=== PATIENT | male | born 1950 | race African-American/Black ===

== ENCOUNTER 2016-11-14 23:18 | Inpatient (IN) | payer MEDICARE, BC ==
[~2016-11-14] VITALS: Ht 170.2 cm; Wt 88.2 kg
[2016-11-14 23:20] VITALS: BP 143/54
[2016-11-14] MEDS ORDERED: Albuterol ud Inhalation ONE (23:28)
[2016-11-14] MEDS ORDERED: FEROSUL325 M1 PO (23:28)
[2016-11-14] MEDS ORDERED: CARVEDILOL6.25 MG ORAL (23:28)
[2016-11-14] MEDS ORDERED: ASPIR 8181 MG ORAL (23:28)
[2016-11-14] MEDS ORDERED: TELMISARTAN80 MG PO (23:28)
[2016-11-14] MEDS ORDERED: Ipratropium 0.02% Inh Soln 2.5ml UD ONE (23:28)
[2016-11-14] MEDS ORDERED: AMLODIPINE BESY10 MG ORAL (23:28)
[2016-11-14] MEDS ORDERED: CRESTOR10 M2 ORAL (23:28)
[2016-11-14] MEDS ORDERED: PROAIR HFA8.5 GM INH (23:28)
[2016-11-14] MEDS ORDERED: NOVOLOG100 UNITS1 (23:28)
[2016-11-14] MEDS ORDERED: CATAPRES0.2 MG ORAL (23:28)
[2016-11-14] MEDS ORDERED: LEVOFLOXACIN250 MG ORAL (23:28)
[2016-11-14] MEDS ORDERED: MONTELUKAST SOD10 MG ORAL (23:28)
[2016-11-14] MEDS ORDERED: LEVOTHYROXINE50 MCG ORAL (23:28)
[2016-11-14] MEDS ORDERED: LANTUS SOL100 UNIT/1 SUBQ (23:28)
[2016-11-14] MEDS ORDERED: CREON DR 24,001 EACH PO (23:28)
[2016-11-14] MEDS ORDERED: Ipratropium 0.02% Inh Soln 2.5ml UD HHN ONE (23:30)
[2016-11-14] MEDS ORDERED: Solu-MEDROL 125mg Inj IVP ONE (23:30)
[2016-11-14] MEDS ORDERED: Albuterol ud Inhalation HHN ONE (23:30)
--- NOTE | 2016-11-14 23:33 | Emergency Room Report ---
History of Present Illness General Chief Complaint: Dyspnea/Respdistress Source: Patient, Family Member Present Illness HPI This is a 66-year-old male with a history of asthma. Also has a history of chronic pancreatitis requiring surgery in the . He presents with shortness of breath. Onset last few days but worse tonight. Wheezing. Had to call 911. No nausea no vomiting. Worse with exertion. Denies any fever or chills. Cough is nonproductive in nature. No chest pain. Allergies: Coded Allergies: No Known Allergies (Unverified , 11/14/16) Patient History Past Medical History: see triage record, old chart reviewed, asthma Past Surgical History: other Pertinent Family History: none Social History: Denies: smoking Immunizations: other Reviewed Nursing Documentation: PMH: Agreed, PSxH: Agreed Nursing Documentation-PMH Hx Hypertension: Yes - Thyroid Hx Asthma: Yes Hx Diabetes: Yes Review of Systems Eye: Denies: eye pain, blurred vision ENT: Denies: ear pain, nose congestion, throat swelling Respiratory: Reports: cough, shortness of breath, wheezing Cardiovascular: Denies: chest pain, palpitations Gastrointestinal: Denies: abdominal pain, diarrhea, nausea, vomiting Musculoskeletal: Denies: back pain, joint pain Skin: Denies: rash Neurological: Denies: headache, numbness Endocrine: Denies: increased thirst, increased urine Hematologic/Lymphatic: Denies: easy bruising All Other Systems: negative except mentioned in HPI Physical Exam Vital Signs Date Time Temp Pulse Resp B/P (MAP) Pulse Ox O2 Delivery O2 Flow Rate FiO2 11/14/16 23:18 97.9 84 26 143/54 99 Room Air vitals normal Sp02 EP Interpretation: reviewed, normal General Appearance: well appearing, alert, moderate distress Head: normocephalic, atraumatic Eyes: bilateral eye PERRL, bilateral eye EOMI ENT: hearing grossly normal, normal pharynx Neck: full range of motion, supple, no meningismus Respiratory: chest non-tender, respiratory distress, decreased breath sounds, accessory muscle use, wheezing Cardiovascular #1: regular rate, rhythm, no murmur Gastrointestinal: normal bowel sounds, non tender, no mass, no organomegaly, no bruit, non-distended Musculoskeletal: back normal, gait/station normal, normal range of motion Psychiatric: mood/affect normal Skin: warm/dry Procedures Critical Care Time Critical Care Time Critical care is mandated in this patient who presented with severe acidosis and renal failure. Patient require my urgent intervention to attenuate the risks of metabolic collapse which may lead to cardiovascular collapse and . Critical care time is 75 minutes excluding any reportable procedure. Critical care time included evaluation, multiple reevaluation, looking at old charts, interpreting laboratory and diagnostic data, discussing case with patient and family and consultants, and charting. Medical Decision Making Diagnostic Impression: Primary Impression: Metabolic acidosis Additional Impressions: Acute renal failure (ARF) Qualified Codes: N17.9 - Acute kidney failure, unspecified Hyperkalemia Status asthmaticus Qualified Codes: J45.32 - Mild persistent asthma with status asthmaticus Hyperglycemia due to type 1 diabetes mellitus Anemia Qualified Codes: D64.9 - Anemia, unspecified ER Course Patient presents with severe acidosis and acute renal failure. Glucose was very high. His acidosis is probably more secondary to renal failure than DKA. Bicarbonate given and bicarbonate drip initiated. Hyperkalemia treated. There is no EKG changes. Wheezing improved after breathing treatment. Patient [facility]. Because of this I will get patient to Dr. Oviedo. He accepted the patient. Laboratory Tests Test 11/14/16 23:50 11/15/16 01:12 11/15/16 01:22 White Blood Count 14.1 K/UL (4.8-10.8) H Red Blood Count 2.99 M/UL (4.70-6.10) L Hemoglobin 10.1 G/DL (14.2-18.0) L Hematocrit 31.1 % (42.0-52.0) L Mean Corpuscular Volume 104 FL (80-99) H Mean Corpuscular Hemoglobin 33.7 PG (27.0-31.0) H Mean Corpuscular Hemoglobin Concent 32.4 G/DL (32.0-36.0) Red Cell Distribution Width 15.7 % (11.6-14.8) H Platelet Count 223 K/UL (150-450) Mean Platelet Volume 6.4 FL (6.5-10.1) L Neutrophils (%) (Auto) 76.0 % (45.0-75.0) H Lymphocytes (%) (Auto) 10.7 % (20.0-45.0) L Monocytes (%) (Auto) 10.9 % (1.0-10.0) H Eosinophils (%) (Auto) 0.7 % (0.0-3.0) Basophils (%) (Auto) 1.7 % (0.0-2.0) Prothrombin Time 10.7 SEC (9.30-11.50) Prothromb Time International Ratio 1.0 (0.9-1.1) Activated Partial Thromboplast Time 33 SEC (23-33) Sodium Level 141 mEQ/L (135-145) 140 mEQ/L (135-145) Potassium Level 6.6 mEQ/L (3.4-4.9) *H 6.9 mEQ/L (3.4-4.9) *H Chloride Level 109 mEQ/L (98-107) H 114 mEQ/L (98-107) H Carbon Dioxide Level < 6 mEQ/L (20-30) *L < 6 mEQ/L (20-30) *L Anion Gap 26 (5-15) H 20 (5-15) H Blood Urea Nitrogen 102 mg/dL (7-23) H 99 mg/dL (7-23) H Creatinine 11.2 mg/dL (0.7-1.2) H 10.7 mg/dL (0.7-1.2) H Estimat Glomerular Filtration Rate 5.6 mL/min (>60) 5.9 mL/min (>60) Glucose Level 217 mg/dL (74-106) H 229 mg/dL (74-106) H Lactic Acid Level 0.90 mmol/L (0.66-2.22) Calcium Level 6.1 mg/dL (8.6-10.2) L 6.2 mg/dL (8.6-10.2) L Total Bilirubin < 0.2 mg/dL (0.0-1.2) Aspartate Amino Transf (AST/SGOT) 22 U/L (5-40) Alanine Aminotransferase (ALT/SGPT) 15 U/L (3-41) Alkaline Phosphatase 183 U/L (40-129) H Total Creatine Kinase 761 U/L (38-174) H Creatine Kinase MB 15.6 ng/mL (< 6.7) H Creatine Kinase MB Relative Index 2.0 Troponin I < 0.30 ng/mL (<=0.30) Total Protein 7.1 g/dL (6.6-8.7) Albumin 4.0 g/dL (3.5-5.2) Globulin 3.1 g/dL Albumin/Globulin Ratio 1.2 (1.0-2.7) Arterial Blood pH 6.860 (7.350-7.450) Arterial Blood Partial Pressure CO2 16.4 mmHg (35.0-45.0) *L Arterial Blood Partial Pressure O2 97.4 mmHg (75.0-100.0) Arterial Blood HCO3 2.9 mmol/L (22.0-26.0) L Arterial Blood Oxygen Saturation 92.9 % (92.0-98.0) Arterial Blood Base Excess -27.9 Doe Test N/a Lab Results Impression labs with severe acidosis and renal failure EKG Diagnostic Results Rate: normal Rhythm: NSR ST Segments: no acute changes Rhythm Strip Diag. Results Rhythm Strip Time: 23:33 EP Interpretation: yes Rate: 86 Rhythm: NSR, no PVC's, no ectopy Chest X-Ray Diagnostic Results Chest X-Ray Diagnostic Results : Chest X-Ray Ordered: Yes # of Views/Limited/Complete: 1 View Indication: Shortness of Breath EP Interpretation: Yes Interpretation: no consolidation, no effusion, no pneumothorax, no acute cardiopulmonary disease Impression: No acute disease Electronically Signed by: Electronically signed by Lee Smyth MD Last Vital Signs Date Time Temp Pulse Resp B/P (MAP) Pulse Ox O2 Delivery O2 Flow Rate FiO2 11/14/16 23:21 86 26 Room Air 11/14/16 23:20 97.9 143/54 99 Status: improved Disposition: ADMITTED INPATIENT Condition: Critical LEE SMYTH M.D. Nov 14, 2016 23:33
[2016-11-15] VITALS (20 sets, daily range): BP systolic 109–203; BP diastolic 52–83
[2016-11-15 00:14] LABS: BASOPHILS % (AUTO) 1.7 % (0.0-2.0); EOSINOPHILS % (AUTO) 0.7 % (0.0-3.0); LYMPHOCYTES % (AUTO) 10.7 % (20.0-45.0); MEAN CORPUSCULAR HEMOGLOBIN 33.7 PG (27.0-31.0); MEAN CORPUSCULAR HGB CONC 32.4 G/DL (32.0-36.0); MEAN CORPUSCULAR VOLUME 104 FL (80-99); MEAN PLATELET VOLUME 6.4 FL (6.5-10.1); MONOCYTES % (AUTO) 10.9 % (1.0-10.0); PLATELET COUNT 223 K/UL (150-450); RED BLOOD COUNT 2.99 M/UL (4.70-6.10); RED CELL DISTRIBUTION WIDTH 15.7 % (11.6-14.8); WHITE BLOOD COUNT 14.1 K/UL (4.8-10.8)
[2016-11-15 00:21] LABS: PROTHROMBIN TIME 10.7 SEC (9.30-11.50)
[2016-11-15 00:28] LABS: TROPONIN I < 0.30 ng/mL (<=0.30)
[2016-11-15 00:31] LABS: ALANINE AMINOTRANSFERASE 15 U/L (3-41); ASPARTATE AMINO TRANSFERASE 22 U/L (5-40); CALCIUM 6.1 mg/dL (8.6-10.2); CHLORIDE 109 mEQ/L (98-107); CREATININE 11.2 mg/dL (0.7-1.2); GLOMERULAR FILTRATION RATE 5.6 mL/min (>60); SODIUM 141 mEQ/L (135-145)
[2016-11-15] MEDS ORDERED: Albuterol ud Inhalation HHN ONE (00:45)
[2016-11-15 00:54] LABS: ALBUMIN/GLOBULIN RATIO 1.2 (1.0-2.7); ANION GAP 26 (5-15); HEMOLYSIS 57; TOTAL PROTEIN 7.1 g/dL (6.6-8.7)
[2016-11-15 01:00] LABS: CARBON DIOXIDE < 6 mEQ/L (20-30); POTASSIUM 6.6 mEQ/L (3.4-4.9)
[2016-11-15 01:09] LABS: CKMB 15.6 ng/mL (< 6.7)
[2016-11-15 01:33] LABS: ABG PCO2 16.4 mmHg (35.0-45.0)
[2016-11-15 01:34] LABS: ABG BASE EXCESS -27.9
[2016-11-15] MEDS ORDERED: Sodium Bicarbonate 50ml Carp IV ONE ×3 (01:45→09:30)
[2016-11-15] MEDS ORDERED: Sodium Bicarbonate 150 ML in D5W 1000ml 1,000 ML IV SCH ×2 (01:45→02:45)
[2016-11-15 01:46] LABS: ANION GAP 20 (5-15); CALCIUM 6.2 mg/dL (8.6-10.2); CHLORIDE 114 mEQ/L (98-107); CREATININE 10.7 mg/dL (0.7-1.2); GLOMERULAR FILTRATION RATE 5.9 mL/min (>60); HEMOLYSIS 20; SODIUM 140 mEQ/L (135-145)
[2016-11-15 01:53] LABS: CARBON DIOXIDE < 6 mEQ/L (20-30); POTASSIUM 6.9 mEQ/L (3.4-4.9)
[2016-11-15] MEDS ORDERED: Sodium Bicarbonate 8.4% 50ml Inj ONE (01:55)
[2016-11-15] MEDS ORDERED: Calcium Gluconate 1gm/10ml vial IVP ONE (02:00)
[2016-11-15] MEDS ORDERED: Sodium Polystyrene Sulfonate 15gm Powder ORAL ONE (02:00)
[2016-11-15 04:43] LABS: KETONES,URINE 1+ (NEGATIVE); LEUKOCYTE ESTERASE ,URINE 3+ (NEGATIVE); NITRITE,URINE NEGATIVE (NEGATIVE); PH,URINE 5 (4.5-8.0); PROTEIN,URINE 4+ (NEGATIVE); UROBILINOGEN,URINE NORMAL MG/DL (0.0-1.0)
[2016-11-15 04:51] LABS: APPEARANCE,URINE CLOUDY
[2016-11-15 04:52] LABS: BACTERIA,URINE MANY /HPF; RBC,URINE TNTC /HPF (0 - 0); SQUAMOUS EPITHELIAL CELL,UR FEW /LPF (NONE/OCC); WBC,URINE TNTC /HPF (0 - 0)
[2016-11-15] MEDS ORDERED: cefTRIAXone 1 GM in D5W 55 ML IVPB ONE (05:45)
[2016-11-15 07:55] LABS: HEMOGLOBIN A1C 7.1 % (< 6.0)
[2016-11-15 08:11] LABS: ALANINE AMINOTRANSFERASE 13 U/L (3-41); ANION GAP 26 (5-15); ASPARTATE AMINO TRANSFERASE 18 U/L (5-40); CALCIUM 6.3 mg/dL (8.6-10.2); CHLORIDE 107 mEQ/L (98-107); CREATININE 11.1 mg/dL (0.7-1.2); GLOMERULAR FILTRATION RATE 5.7 mL/min (>60); HEMOLYSIS 1; POTASSIUM 5.7 mEQ/L (3.4-4.9); SODIUM 139 mEQ/L (135-145); TOTAL PROTEIN 6.9 g/dL (6.6-8.7)
[2016-11-15 08:26] LABS: ABG BASE EXCESS -26.6; ABG PCO2 19.7 mmHg (35.0-45.0)
[2016-11-15 08:27] LABS: ABG ALLEN TEST POSITIVE
[2016-11-15 09:15] LABS: CARBON DIOXIDE < 6 mEQ/L (20-30)
[2016-11-15] MEDS ORDERED: Lidocaine 4% Amp INJ ONE (09:30)
[2016-11-15] MEDS ORDERED: metOLazone 2.5 MG TAB ORAL SCH (09:30)
[2016-11-15] MEDS ORDERED: NovoLOG Insulin Flexpen SUBQ SCH ×2 (09:30→11:50)
[2016-11-15] MEDS ORDERED: Heparin 2000 units/Ns 1000ml INJ ONE (11:00)
[2016-11-15] MEDS ORDERED: Lidocaine 1% Plain 30 ml INJ ONE (11:00)
[2016-11-15 11:57] LABS: CREATININE, RANDOM URINE 100.5 mg/dL
--- NOTE | 2016-11-15 12:16 | Diagnostic Imaging Report ---
Indication: SOB Technique: One view of the chest Comparison: none Findings: Vague 6 cm opacity is seen in the right upper lobe. Atelectatic changes are seen in the left lung base. The heart is enlarged. Pleural spaces are clear. Impression: Vague 6 cm opacity in the right upper lobe. Could represent infiltrate or mass Cardiomegaly Left basilar atelectasis
[2016-11-15] MEDS: Nitroglycerin 2% oint pkt TOPIC SCH ×3 (12:46→23:36)
[2016-11-15] MEDS: NovoLOG Insulin Flexpen SUBQ SCH ×6 (12:47→23:36)
[2016-11-15] MEDS ORDERED: Solu-MEDROL 125mg Inj IVP SCH (15:30)
[2016-11-15] MEDS ORDERED: Azithromycin 250mg tab ORAL ONE (15:30)
--- NOTE | 2016-11-15 15:42 | Diagnostic Imaging Report ---
Indication: Needs dialysis access, renal failure Technique: Procedure performed at bedside. Procedural timeout performed. Total sterile technique, including sterile probe cover and sterile gel, sterile gloves, hand hygiene, hat, mask, sterile gown, large sterile drape, and preparation with 2% chlorhexidine utilized. Local anesthesia with 1% lidocaine. Under real-time ultrasound guidance, puncture right greater saphenous vein using 21-gauge needle, passage 108 guidewire, insertion 4 Arabic micropuncture introducer, passage 0.035 guidewire, over which was passed serial dilators and then a 13 Arabic triple-lumen temporary dialysis catheter. Guidewire was removed. Catheter ports were aspirated and flushed. The catheter was fixed to the skin. Patient tolerated procedure well. An abdominal radiograph was obtained, documents catheter tip position at the iliac venous confluence. Comparison: None Findings: As above Impression: Successful bedside placement of right femoral temporary dialysis catheter, as described.
--- NOTE | 2016-11-15 19:16 | History & Physical ---
History and Physical History & Physicial dict ESRD hyperkalemia, acidosis resp failure asthma DM ADELAIDA COOL Nov 15, 2016 19:16
[2016-11-15] MEDS: Solu-MEDROL 40mg Inj IVP SCH (20:01)
[2016-11-15] MEDS: Losartan 50mg tab ORAL SCH (20:01)
[2016-11-15] MEDS ORDERED: Levemir Flexpen SUBQ SCH (21:00)
[2016-11-15] MEDS: Levemir Flexpen SUBQ SCH (21:03)
--- NOTE | 2016-11-15 22:30 | Consultation ---
DATE OF CONSULTATION: 11/15/2016 NEPHROLOGY CONSULTATION CONSULTING PHYSICIAN: Smith Tidwell M.D. REFERRING PHYSICIAN: Manish Oviedo M.D. REASON FOR CONSULTATION: Azotemia, hyperkalemia, and dyspnea. History Of Present Illness: The patient is a 66-year-old man with long-term diabetes, who presents with hyperkalemia, azotemia, and respiratory distress. He apparently has had diminished renal function but could not give us any details. He has long-standing diabetes for likely more than 20 years and history of hypertension. There is prior history of pancreatitis requiring surgery in the . He also has asthma. PAST SURGICAL HISTORY: Surgery for pancreatitis. ALLERGIES: None known. Medications: Levothyroxine 50 mcg daily, aspirin 81 mg daily, montelukast 10 mg daily, Creon 3 times a day, ferrous sulfate 325 b.i.d., Crestor changed to atorvastatin uncertain dose, carvedilol 6.25 b.i.d., telmisartan 80 mg daily, clonidine 0.2 mg b.i.d., amlodipine 10 mg daily, Lantus 25 units at night, NovoLog 10 to 15 units t.i.d. with meals, ProAir and QVAR p.r.n. HABITS: He has never been a smoker. Denies alcohol or drugs. SOCIAL HISTORY: His apparently helps with his medications. SYSTEM REVIEW: Head, Eyes, Ears, Nose, Throat: He states his vision and hearing is good. Endocrine: History of obesity and diabetes as above and hypothyroidism. PULMONARY: History of asthma as above. Gastrointestinal: No GI bleeding or ulcers. No recent vomiting or GI bleeding. GENITOURINARY: History of difficulty voiding. CARDIAC: Denies history of angina or [place]. NEUROLOGIC: No history of CVA or seizures. PHYSICAL EXAMINATION: General: The patient is seen in the ICU. He is on BiPAP. He is alert and responsive but dyspneic. Vital Signs: Blood pressure 155/51, pulse 84, respirations 20, and O2 saturation 100%. Head, Eyes, Ears, Nose, A Throat: Sclerae are nonicteric. Ocular motions are intact in all directions. Oral mucosa is slightly dry. NECK: No adenopathy. LUNGS: He is in mild distress. Bilateral wheezing. HEART: Regular rhythm. I hear no murmur. ABDOMEN: Soft. No organomegaly. EXTREMITIES: A 1+ edema. GENITOURINARY: A Palacios is in place. Penis and testes are normal. RECTAL: Deferred. Neurologic: He is alert and responsive. Cranial nerves are intact. No focal findings. Pertinent Laboratory And Diagnostic Data: On admission, sodium 141, potassium 6.6, chloride 109, CO2 of 6, BUN 102, creatinine 11.2, and glucose 217. CK 761. Troponin less than 0.30. Albumin is 4. There was pH of 6.86, pCO2 16, and pO2 97.4. White count 14.1 and hemoglobin 10.1. Urine sodium 74, urine creatinine of 100.5, and 4+ proteinuria. Chest x-ray shows cardiomegaly. There is no definite pulmonary edema. IMPRESSION: 1. End-stage renal disease. 2. Hyperkalemia. 3. Severe respiratory and severe metabolic acidosis likely due to some component of ketoacidosis as well as lactic acidosis and renal acidosis all combined. 4. Respiratory distress with asthma. 5. Diabetes with hyperglycemia. Plan: The patient requires dialysis for fluid overload and metabolic acidosis. He requires management of his diabetes and multiple medical problems. His condition is critical. In great detail, ICU orders were given. Case was discussed with Dr. Manish Oviedo. Smith Tidwell M.D. DR: LISA JOB#: [id number] CC:
[2016-11-16] VITALS (24 sets, daily range): BP systolic 115–177; BP diastolic 56–93
[2016-11-16] MEDS: NovoLOG Insulin Flexpen SUBQ SCH ×10 (03:05→20:52)
[2016-11-16 05:41] LABS: MEAN CORPUSCULAR HGB CONC 32.9 G/DL (32.0-36.0); MEAN CORPUSCULAR VOLUME 97 FL (80-99); MEAN PLATELET VOLUME 6.1 FL (6.5-10.1); PLATELET COUNT 221 K/UL (150-450); RED BLOOD COUNT 2.98 M/UL (4.70-6.10); RED CELL DISTRIBUTION WIDTH 14.5 % (11.6-14.8); WHITE BLOOD COUNT 14.6 K/UL (4.8-10.8)
[2016-11-16] MEDS: Nitroglycerin 2% oint pkt TOPIC SCH ×3 (05:48→17:23)
[2016-11-16] MEDS ORDERED: Heparin Sod 1000 units/ml 10ml IV SCH (06:00)
[2016-11-16 06:08] LABS: ALBUMIN/GLOBULIN RATIO 0.9 (1.0-2.7); CALCIUM 7.2 mg/dL (8.6-10.2); CREATININE 9.2 mg/dL (0.7-1.2); TOTAL PROTEIN 7.2 g/dL (6.6-8.7)
[2016-11-16 08:24] LABS: ABG ALLEN TEST POSITIVE; ABG BASE EXCESS -9.2
[2016-11-16] MEDS: Azithromycin 250mg tab ORAL SCH (08:36)
[2016-11-16] MEDS: Solu-MEDROL 40mg Inj IVP SCH ×2 (08:36→20:50)
--- NOTE | 2016-11-16 09:02 | History and Physical Report ---
DATE OF ADMISSION: 11/15/2016 CHIEF COMPLAINT: Short of breath. History of Present Illness: This is a 66-year-old man with asthma and diabetes, came in the emergency room with several days of increasing shortness of breath and wheezing. He was evaluated and found to have exacerbation of asthma and renal failure. He was placed on BiPAP and admitted to intensive care. I came to see him several hours later. There is no chest pain. There is nonproductive cough. There is no fever. Past Medical History: He has longstanding diabetes according to the . He has been told that his kidney function is only 18% of normal several months ago. He has history of asthma. He is not a cigarette smoker. He has hypertension and thyroid disease. MEDICATIONS: Reviewed. ALLERGIES: None. Review of Systems: Difficult to obtain because he is in respiratory distress and on BiPAP and according to the , he is quite functional. PHYSICAL EXAMINATION: GENERAL: The patient is alert, but weak and short of breath. Vital Signs: Vital signs show adequate saturation and otherwise stable with blood pressure somewhat elevated. There is no fever. SKIN: Warm and dry. HEENT: Head appears puffy. CHEST: Decreased air entry with few wheezes. CARDIAC: Rhythm is regular. ABDOMEN: Soft and nontender. EXTREMITIES: No clubbing or cyanosis. There is 2+ edema. Laboratory And Diagnostic Data: Laboratory studies show urine has protein, blood, glucose, and ketones as well as red cells and white cells. The white blood count is 14,100 and hemoglobin is 10. Chemistry shows a BUN of 99, creatinine 10.7, potassium 6.1, bicarbonate less than 6, sodium was normal, and blood sugar 229. Hemoglobin A1c 7.1. Blood gas showed pH is 6.86, pCO2 of 16, pO2 at 97, bicarbonate of 3, and base excess -27. Chest x-ray shows hazy opacity in the right upper lobe, cardiomegaly, and basilar atelectasis. IMPRESSION: 1. Respiratory failure. 2. Severe metabolic acidosis. 3. Renal failure, stage 5. 4. Severe hyperkalemia. 5. Diabetes. 6. Hypertension. 7. Possible pneumonia. 8. Possible urinary tract infection. Plan: The patient is will continue in ICU. I have given some bicarbonate and called Dr. Tidwell for dialysis for the patient. The potassium is treated in the emergency department and will be repeated. The antibiotics will be continued. I discussed his care with his . Manish Oviedo M.D. DR: ASTRID JOB#: [id number] CC: Manish Oviedo M.D.; Fax#: [phone] Lang, M.D. ; Fax#: [phone] [facility]
--- NOTE | 2016-11-16 11:10 | Diagnostic Imaging Report ---
Indication: SOB Technique: One view of the chest Comparison: none Findings: The heart is borderline enlarged. There is slightly increased interstitial edema. No focal airspace consolidation. The pleural spaces remain clear Impression: Slightly increased interstitial edema, over 2 days Cardiomegaly
--- NOTE | 2016-11-16 14:01 | Nephrology Progress Note ---
Assessment/Plan Problem List: (1) Hypertension, benign (2) Anemia in chronic kidney disease (3) CHF exacerbation (4) Diabetes (5) End-stage renal disease (6) Hyperkalemia (7) Metabolic acidosis (8) Status asthmaticus Plan improving, less dyspnea, diuresing with lasix, dose adjusted, K replaced , serial dialysis for acidosis and azotemia, discussed need for access with patient and Subjective Constitutional: Reports: weakness Genitourinary: Reports: no symptoms Neurologic/Psychiatric: Reports: no symptoms Objective Objective Last 24 Hour Vital Signs Date Time Temp Pulse Resp B/P (MAP) Pulse Ox O2 Delivery O2 Flow Rate FiO2 11/16/16 13:17 Bi-pap 11/16/16 13:00 85 23 148/56 99 Nasal Cannula 2.0 11/16/16 12:39 76 20 99 11/16/16 12:00 99.1 92 22 168/75 99 Bi-pap 30 11/16/16 12:00 30 11/16/16 12:00 89 11/16/16 11:58 150/62 11/16/16 11:00 85 23 150/62 100 Bi-pap 30 11/16/16 10:45 89 17 100 Facial 30 11/16/16 10:00 91 23 149/60 100 Bi-pap 30 11/16/16 09:04 94 22 96 11/16/16 09:00 92 24 170/81 100 Nasal Cannula 2.0 11/16/16 08:35 95 155/75 11/16/16 08:00 91 11/16/16 08:00 99.0 99 25 155/75 100 Nasal Cannula 2.0 11/16/16 08:00 30 11/16/16 07:02 95 23 100 Facial 30 11/16/16 07:00 95 16 161/78 100 Bi-pap 30 11/16/16 06:00 100 16 177/82 100 Bi-pap 30 11/16/16 05:48 173/68 11/16/16 05:10 98 18 100 Facial 30 11/16/16 05:00 93 21 173/68 99 Bi-pap 30 11/16/16 04:00 98 11/16/16 04:00 30 11/16/16 04:00 99.2 97 25 165/74 100 Bi-pap 30 11/16/16 03:15 91 23 100 Facial 30 11/16/16 03:00 92 19 169/73 100 Bi-pap 30 11/16/16 02:00 98 21 173/73 100 Bi-pap 30 11/16/16 01:16 96 21 100 Facial 30 11/16/16 01:00 96 22 173/73 100 Bi-pap 30 11/16/16 00:00 30 11/16/16 00:00 109 11/16/16 00:00 99.0 92 22 173/68 99 Bi-pap 30 11/15/16 23:36 178/73 11/15/16 23:21 104 25 100 Facial 30 11/15/16 23:00 104 22 178/73 100 Bi-pap 30 11/15/16 22:13 207/64 11/15/16 22:00 104 22 203/71 100 Bi-pap 30 11/15/16 21:37 102 21 100 Facial 30 11/15/16 21:00 100 22 175/68 100 Bi-pap 30 11/15/16 20:02 102 190/78 11/15/16 20:01 190/78 11/15/16 20:00 98.8 101 22 193/79 100 Bi-pap 30 11/15/16 20:00 102 11/15/16 20:00 30 11/15/16 19:04 101 21 100 Facial 30 11/15/16 19:00 101 22 199/67 100 Bi-pap 30 11/15/16 18:15 169/75 11/15/16 18:00 98 22 183/73 100 Bi-pap 30 11/15/16 17:10 99 20 100 Facial 30 11/15/16 17:00 95 23 131/69 100 Bi-pap 30 11/15/16 16:00 98.0 93 19 137/83 100 Bi-pap 30 11/15/16 16:00 88 11/15/16 16:00 30 11/15/16 15:48 88 20 100 Facial 30 11/15/16 15:00 88 17 131/69 100 Bi-pap 30 11/15/16 14:00 89 17 120/78 100 Bi-pap 30 Intake and Output 11/16/16 11/17/16 19:00 07:00 Output Total 1750 ml Balance -1750 ml Output Urine Total 1750 ml Laboratory Tests 11/16/16 04:05: White Blood Count 14.6H, Red Blood Count 2.98L, Hemoglobin 9.5L, Hematocrit 29.0L, Mean Corpuscular Volume 97, Mean Corpuscular Hemoglobin 32.0H, Mean Corpuscular Hemoglobin Concent 32.9, Red Cell Distribution Width 14.5, Platelet Count 221, Mean Platelet Volume 6.1L, Neutrophils (%) (Auto) , Lymphocytes (%) ( Auto) , Monocytes (%) (Auto) , Eosinophils (%) (Auto) , Basophils (%) (Auto) , Sodium Level 144, Potassium Level 3.0L, Chloride Level 102, Carbon Dioxide Level 14L, Anion Gap 28H, Blood Urea Nitrogen 83H, Creatinine 9.2H, Estimat Glomerular Filtration Rate 7.0, Glucose Level 201#H, Calcium Level 7.2L, Total Bilirubin 0.2, Aspartate Amino Transf (AST/SGOT) 23, Alanine Aminotransferase ( ALT/SGPT) 14, Alkaline Phosphatase 163H, Total Protein 7.2, Albumin 3.5, Globulin 3.7, Albumin/Globulin Ratio 0.9L 11/16/16 08:17: Arterial Blood pH 7.325L, Arterial Blood Partial Pressure CO2 31.0L, Arterial Blood Partial Pressure O2 146.7H, Arterial Blood HCO3 15.8L, Arterial Blood Oxygen Saturation 97.0, Arterial Blood Base Excess -9.2, Doe Test Positive Height (Feet): 5 Height (Inches): 7.00 Weight (Pounds): 198 General Appearance: alert, obese EENT: normal ENT inspection Neck: normal alignment Cardiovascular: normal rate, regular rhythm Respiratory/Chest: rhonchi - bilaterally Abdomen: non tender, soft Extremities: trace edema Neurologic: pressurization mechanic II-XII grossly normal ELO WATSON Nov 16, 2016 14:01
--- NOTE | 2016-11-16 15:10 | Critical Care Progress Note ---
Assessment/Plan Assessment/Plan 1. Respiratory failure. 2. Severe metabolic acidosis. 3. Renal failure, stage 5. 4. Severe hyperkalemia. 5. Diabetes. 6. Hypertension. 7. Possible pneumonia. 8. Possible urinary tract infection. improved with HD/UF pH 7.32, better K low disc w insurance MD and will transfer to [facility] hospital tomorrow if stable Critical Care - Subjective ROS Limited/Unobtainable: No EKG Rhythm: Sinus Tachycardia I&O: Intake and Output 11/16/16 11/17/16 19:00 07:00 Output Total 2065 ml Balance -2065 ml Output Urine Total 2065 ml Critical Care - Objective Last 24 Hour Vital Signs Date Time Temp Pulse Resp B/P (MAP) Pulse Ox O2 Delivery O2 Flow Rate FiO2 11/16/16 14:00 104 23 115/59 99 Nasal Cannula 2.0 11/16/16 13:17 Bi-pap 11/16/16 13:00 85 23 148/56 99 Nasal Cannula 2.0 11/16/16 12:39 76 20 99 11/16/16 12:00 99.1 92 22 168/75 99 Bi-pap 30 11/16/16 12:00 30 11/16/16 12:00 89 11/16/16 11:58 150/62 11/16/16 11:00 85 23 150/62 100 Bi-pap 30 11/16/16 10:45 89 17 100 Facial 30 11/16/16 10:00 91 23 149/60 100 Bi-pap 30 11/16/16 09:04 94 22 96 11/16/16 09:00 92 24 170/81 100 Nasal Cannula 2.0 11/16/16 08:35 95 155/75 11/16/16 08:00 91 11/16/16 08:00 99.0 99 25 155/75 100 Nasal Cannula 2.0 11/16/16 08:00 30 11/16/16 07:02 95 23 100 Facial 30 11/16/16 07:00 95 16 161/78 100 Bi-pap 30 11/16/16 06:00 100 16 177/82 100 Bi-pap 30 11/16/16 05:48 173/68 11/16/16 05:10 98 18 100 Facial 30 11/16/16 05:00 93 21 173/68 99 Bi-pap 30 11/16/16 04:00 98 9/28/17 04:00 30 11/16/16 04:00 99.2 97 25 165/74 100 Bi-pap 30 11/16/16 03:15 91 23 100 Facial 30 11/16/16 03:00 92 19 169/73 100 Bi-pap 30 11/16/16 02:00 98 21 173/73 100 Bi-pap 30 11/16/16 01:16 96 21 100 Facial 30 11/16/16 01:00 96 22 173/73 100 Bi-pap 30 11/16/16 00:00 30 11/16/16 00:00 109 11/16/16 00:00 99.0 92 22 173/68 99 Bi-pap 30 11/15/16 23:36 178/73 11/15/16 23:21 104 25 100 Facial 30 11/15/16 23:00 104 22 178/73 100 Bi-pap 30 11/15/16 22:13 207/64 11/15/16 22:00 104 22 203/71 100 Bi-pap 30 11/15/16 21:37 102 21 100 Facial 30 11/15/16 21:00 100 22 175/68 100 Bi-pap 30 11/15/16 20:02 102 190/78 11/15/16 20:01 190/78 11/15/16 20:00 98.8 101 22 193/79 100 Bi-pap 30 11/15/16 20:00 102 11/15/16 20:00 30 11/15/16 19:04 101 21 100 Facial 30 11/15/16 19:00 101 22 199/67 100 Bi-pap 30 11/15/16 18:15 169/75 11/15/16 18:00 98 22 183/73 100 Bi-pap 30 11/15/16 17:10 99 20 100 Facial 30 11/15/16 17:00 95 23 131/69 100 Bi-pap 30 11/15/16 16:00 98.0 93 19 137/83 100 Bi-pap 30 11/15/16 16:00 88 11/15/16 16:00 30 11/15/16 15:48 88 20 100 Facial 30 Status: alert Condition: improving Neck: no JVD Lungs: clear Heart: regular rhythm, tachycardia Abdomen: soft, non-tender Extremities: edema Micro: Microbiology Date/Time Source Procedure Growth Status 11/14/16 23:50 Blood Blood Culture - Preliminary NO GROWTH AFTER 24 HOURS Resulted 11/14/16 23:40 Blood Blood Culture - Preliminary NO GROWTH AFTER 24 HOURS Resulted 11/15/16 07:00 Nasal Nares MRSA Culture - Final Staphylococcus Aureus - Mrsa Complete 11/15/16 03:45 Urine,Clean Catch Urine Culture - Preliminary Gram Positive Cocci Resulted Accucheck: 346 ADELAIDA COOL Nov 16, 2016 15:10
[2016-11-16] MEDS: Renvela 2400 mg pkt NG SCH (18:03)
[2016-11-16] MEDS: Losartan 50mg tab ORAL SCH (20:50)
[2016-11-16] MEDS: Levemir Flexpen SUBQ SCH (20:53)
[2016-11-16] MEDS ORDERED: Dyna-Hex 2% Top Sol 2oz TOPIC SCH (21:00)
[2016-11-17] VITALS (25 sets, daily range): BP systolic 102–185; BP diastolic 57–97
[2016-11-17] MEDS: Nitroglycerin 2% oint pkt TOPIC SCH ×4 (00:29→18:00)
[2016-11-17] MEDS: NovoLOG Insulin Flexpen SUBQ SCH ×10 (00:29→21:44)
[2016-11-17 04:50] LABS: MEAN CORPUSCULAR HEMOGLOBIN 31.4 PG (27.0-31.0); MEAN CORPUSCULAR HGB CONC 32.7 G/DL (32.0-36.0); MEAN CORPUSCULAR VOLUME 96 FL (80-99); MEAN PLATELET VOLUME 5.8 FL (6.5-10.1); PLATELET COUNT 229 K/UL (150-450); RED CELL DISTRIBUTION WIDTH 14.3 % (11.6-14.8); WHITE BLOOD COUNT 15.6 K/UL (4.8-10.8)
[2016-11-17] MEDS ORDERED: Heparin Sod 1000 units/ml 10ml IV SCH (06:00)
[2016-11-17] MEDS ORDERED: Heparin 5000 units/ml inj INJ SCH ×2 (06:00→18:00)
[2016-11-17 07:17] LABS: CALCIUM 7.4 mg/dL (8.6-10.2); CREATININE 7.3 mg/dL (0.7-1.2); GLOMERULAR FILTRATION RATE 9.2 mL/min (>60); POTASSIUM 3.3 mEQ/L (3.4-4.9)
[2016-11-17 07:50] LABS: ANISOCYTOSIS 1+; BAND NEUTROPHILS % (MANUAL) 0 % (0-8); BASOPHILS % (MANUAL) 0 % (0-2); EOSINOPHILS % (MANUAL) 0 % (0-3); LYMPHOCYTES % (MANUAL) 4 % (20-45); NEUTROPHILS % (MANUAL) 92 % (45-75); NUCLEATED RED BLOOD CELLS 2 /100 WBC; PLATELET ESTIMATE ADEQUATE; PLATELET MORPHOLOGY NORMAL; SCHISTOCYTES 1+; TOTAL CELLS COUNTED 100
--- NOTE | 2016-11-17 07:50 | Nephrology Progress Note ---
Assessment/Plan Problem List: (1) Hypertension, benign (2) Anemia in chronic kidney disease (3) CHF exacerbation (4) Diabetes (5) End-stage renal disease (6) Hyperkalemia (7) Metabolic acidosis (8) Status asthmaticus Plan improving, less dyspnea, diuresing with lasix, dose adjusted, K replaced , serial dialysis for acidosis and azotemia, discussed need for access with patient and , Permcath order, dc anibal chapman for uti Subjective Constitutional: Reports: weakness HEENT: Reports: no symptoms Genitourinary: Reports: no symptoms Neurologic/Psychiatric: Reports: no symptoms Subjective emesis 2x, mild cough Objective Objective Last 24 Hour Vital Signs Date Time Temp Pulse Resp B/P (MAP) Pulse Ox O2 Delivery O2 Flow Rate FiO2 11/17/16 07:12 99 Nasal Cannula 2.0 28 11/17/16 07:12 Nasal Cannula 2.0 28 11/17/16 07:00 94 19 169/84 100 Nasal Cannula 2.0 11/17/16 06:00 84 19 159/80 100 Nasal Cannula 2.0 11/17/16 05:45 158/73 11/17/16 05:00 88 19 158/73 99 Nasal Cannula 2.0 11/17/16 04:00 98.6 86 15 164/82 100 Nasal Cannula 2.0 11/17/16 04:00 90 11/17/16 03:00 81 19 149/70 100 Nasal Cannula 2.0 11/17/16 02:00 82 17 152/87 100 Nasal Cannula 2.0 11/17/16 01:00 81 17 148/77 100 Nasal Cannula 2.0 11/17/16 00:29 147/76 11/17/16 00:00 98.4 93 15 147/76 100 Nasal Cannula 2.0 11/17/16 00:00 93 11/16/16 23:00 84 16 130/71 100 Nasal Cannula 2.0 11/16/16 22:00 85 26 138/71 100 Nasal Cannula 2.0 11/16/16 21:00 99 19 138/91 100 Nasal Cannula 2.0 11/16/16 20:50 156/77 11/16/16 20:00 98.9 99 22 156/77 100 Nasal Cannula 2.0 11/16/16 20:00 99 Nasal Cannula 2.0 28 11/16/16 20:00 97 11/16/16 20:00 Nasal Cannula 2.0 28 11/16/16 19:00 101 19 142/76 99 Nasal Cannula 2.0 11/16/16 18:00 102 19 163/93 99 Nasal Cannula 2.0 11/16/16 17:23 157/92 11/16/16 17:00 103 20 157/92 99 Nasal Cannula 2.0 11/16/16 16:00 Nasal Cannula 2.0 11/16/16 16:00 99.1 109 22 169/70 99 Nasal Cannula 2.0 11/16/16 16:00 103 11/16/16 15:00 102 19 136/73 99 Nasal Cannula 2.0 11/16/16 14:00 104 23 115/59 99 Nasal Cannula 2.0 11/16/16 13:17 Bi-pap 11/16/16 13:00 85 23 148/56 99 Nasal Cannula 2.0 11/16/16 12:39 76 20 99 11/16/16 12:00 99.1 92 22 168/75 99 Bi-pap 30 11/16/16 12:00 30 11/16/16 12:00 89 11/16/16 11:58 150/62 11/16/16 11:00 85 23 150/62 100 Bi-pap 30 11/16/16 10:45 89 17 100 Facial 30 11/16/16 10:00 91 23 149/60 100 Bi-pap 30 11/16/16 09:04 94 22 96 11/16/16 09:00 92 24 170/81 100 Nasal Cannula 2.0 11/16/16 08:35 95 155/75 11/16/16 08:00 91 11/16/16 08:00 99.0 99 25 155/75 100 Nasal Cannula 2.0 11/16/16 08:00 30 Laboratory Tests 11/16/16 08:17: Arterial Blood pH 7.325L, Arterial Blood Partial Pressure CO2 31.0L, Arterial Blood Partial Pressure O2 146.7H, Arterial Blood HCO3 15.8L, Arterial Blood Oxygen Saturation 97.0, Arterial Blood Base Excess -9.2, Doe Test Positive 11/17/16 03:40: White Blood Count 15.6H, Red Blood Count 3.40L, Hemoglobin 10.7L, Hematocrit 32.7L, Mean Corpuscular Volume 96, Mean Corpuscular Hemoglobin 31.4H, Mean Corpuscular Hemoglobin Concent 32.7, Red Cell Distribution Width 14.3, Platelet Count 229, Mean Platelet Volume 5.8L, Neutrophils (%) (Auto) , Lymphocytes (%) ( Auto) , Monocytes (%) (Auto) , Eosinophils (%) (Auto) , Basophils (%) (Auto) , Neutrophils % (Manual) [Pending], Lymphocytes % (Manual) [Pending], Platelet Estimate [Pending], Platelet Morphology [Pending], Sodium Level 144, Potassium Level 3.3L, Chloride Level 100, Carbon Dioxide Level 24, Anion Gap 20H, Blood Urea Nitrogen 66H, Creatinine 7.3H, Estimat Glomerular Filtration Rate 9.2, Glucose Level 197H, Calcium Level 7.4L Height (Feet): 5 Height (Inches): 7.00 Weight (Pounds): 183 General Appearance: no apparent distress, alert EENT: normal ENT inspection Neck: normal alignment Cardiovascular: normal rate, regular rhythm Respiratory/Chest: rhonchi - bilaterally Abdomen: non tender, soft Extremities: trace edema 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
[2016-11-17 07:51] LABS: STOMATOCYTES 1+
[2016-11-17] MEDS ORDERED: Heparin Sod 1000 units/ml 10ml IV PRN (08:11)
[2016-11-17] MEDS: Losartan 50mg tab ORAL SCH (08:28)
[2016-11-17] MEDS: Azithromycin 250mg tab ORAL SCH (08:29)
[2016-11-17] MEDS: Solu-MEDROL 40mg Inj IVP SCH (08:29)
[2016-11-17] MEDS: Renvela 2400 mg pkt NG SCH ×3 (08:29→18:00)
--- NOTE | 2016-11-17 09:24 | Critical Care Progress Note ---
Assessment/Plan Assessment/Plan 1. Respiratory failure, resolved 2. Severe metabolic acidosis, resolved 3. Renal failure, stage 5 now on HD 4. Severe hyperkalemia, resolved 5. Diabetes. 6. Hypertension. 7. Possible pneumonia. 8. UTI d/t enterococcus. 9. Asthma improved with HD/UF oral steroids, ampicillin K low OK for transfer to [facility], HD Critical Care - Subjective Condition: improving IV Access: dialysis access EKG Rhythm: Sinus Rhythm Critical Care - Objective Last 24 Hour Vital Signs Date Time Temp Pulse Resp B/P (MAP) Pulse Ox O2 Delivery O2 Flow Rate FiO2 11/17/16 08:28 86 164/77 11/17/16 08:28 164/77 11/17/16 07:12 99 Nasal Cannula 2.0 11/17/16 07:12 Nasal Cannula 2.0 11/17/16 07:00 94 19 169/84 100 Nasal Cannula 2.0 11/17/16 06:00 84 19 159/80 100 Nasal Cannula 2.0 11/17/16 05:45 158/73 11/17/16 05:00 88 19 158/73 99 Nasal Cannula 2.0 11/17/16 04:00 98.6 86 15 164/82 100 Nasal Cannula 2.0 11/17/16 04:00 90 11/17/16 03:00 81 19 149/70 100 Nasal Cannula 2.0 11/17/16 02:00 82 17 152/87 100 Nasal Cannula 2.0 11/17/16 01:00 81 17 148/77 100 Nasal Cannula 2.0 11/17/16 00:29 147/76 11/17/16 00:00 98.4 93 15 147/76 100 Nasal Cannula 2.0 11/17/16 00:00 93 11/16/16 23:00 84 16 130/71 100 Nasal Cannula 2.0 11/16/16 22:00 85 26 138/71 100 Nasal Cannula 2.0 11/16/16 21:00 99 19 138/91 100 Nasal Cannula 2.0 11/16/16 20:50 156/77 11/16/16 20:00 98.9 99 22 156/77 100 Nasal Cannula 2.0 11/16/16 20:00 99 Nasal Cannula 2.0 28 11/16/16 20:00 97 11/16/16 20:00 Nasal Cannula 2.0 28 11/16/16 19:00 101 19 142/76 99 Nasal Cannula 2.0 11/16/16 18:00 102 19 163/93 99 Nasal Cannula 2.0 11/16/16 17:23 157/92 11/16/16 17:00 103 20 157/92 99 Nasal Cannula 2.0 11/16/16 16:00 Nasal Cannula 2.0 11/16/16 16:00 99.1 109 22 169/70 99 Nasal Cannula 2.0 11/16/16 16:00 103 11/16/16 15:00 102 19 136/73 99 Nasal Cannula 2.0 11/16/16 14:00 104 23 115/59 99 Nasal Cannula 2.0 11/16/16 13:17 Bi-pap 11/16/16 13:00 85 23 148/56 99 Nasal Cannula 2.0 11/16/16 12:39 76 20 99 11/16/16 12:00 99.1 92 22 168/75 99 Bi-pap 30 11/16/16 12:00 30 11/16/16 12:00 89 11/16/16 11:58 150/62 11/16/16 11:00 85 23 150/62 100 Bi-pap 30 11/16/16 10:45 89 17 100 Facial 30 11/16/16 10:00 91 23 149/60 100 Bi-pap 30 Status: awake, alert Condition: improving HEENT: atraumatic Lungs: normal breath sounds Heart: normal rate Abdomen: non-tender Micro: Microbiology Date/Time Source Procedure Growth Status 11/14/16 23:50 Blood Blood Culture - Preliminary NO GROWTH AFTER 48 HOURS Resulted 11/14/16 23:40 Blood Blood Culture - Preliminary NO GROWTH AFTER 48 HOURS Resulted 11/15/16 07:00 Nasal Nares MRSA Culture - Final Staphylococcus Aureus - Mrsa Complete 11/15/16 03:45 Urine,Clean Catch Urine Culture - Final Enterococcus Faecalis Complete Accucheck: ADELAIDA WALKER Nov 17, 2016 09:24
[2016-11-17] MEDS ORDERED: Lidocaine 2% 20mg/ml/Epi 0.005mg/ml 20ml vial INJ ONE (09:30)
[2016-11-17] MEDS ORDERED: Heparin 2000 units/Ns 1000ml INJ ONE (09:30)
[2016-11-17] MEDS ORDERED: Heparin Sod 1000 units/ml 10ml INJ ONE (09:30)
--- NOTE | 2016-11-17 10:16 | Pre-Procedure Note/Attestation ---
Pre-Procedure Note/Attestation Complete Prior to Procedure Planned Procedure: not applicable Procedure Narrative: tunneled dialysis catheter Indications for Procedure Pre-Operative Diagnosis: Renal failure Attestation I attest that I discussed the nature of the procedure; its benefits; risks and complications; and alternatives (and the risks and benefits of such alternatives ), prior to the procedure, with the patient (or the patient's legal disability representative). I attest that, if there was a reasonable possibility of needing a blood transfusion, the patient (or the patient's legal disability representative) was given the [facility] standardized written summary, pursuant to the Octavio Daina Blood Safety Act ([place] Health and Safety Code # 1645, as amended). I attest that I re-evaluated the patient just prior to the surgery and that there has been no change in the patient's H&P, except as documented below: JOSE HERNANDEZ M.D. Nov 17, 2016 10:16
--- NOTE | 2016-11-17 10:17 | Moderate Sedation - Procedural ---
Moderate Sedation HPI Home Medication Reported Medications Levofloxacin (LEVOFLOXACIN*) 250 Mg Tablet, 250 MG ORAL DAILY, TAB 11/14/16 Albuterol Sulfate* (PROAIR HFA*) 8.5 Gm Hfa.aer.ad, 1 PUFF INH Q6H, #8.5 GM 0 Refills 11/14/16 Insulin Aspart (Novolog Flexpen) 100 Unit/1 Ml Insuln.pen 11/14/16 Insulin Glargine (LANTUS) 100 Unit/1 Ml Insuln.pen, 0 SUBQ BEDTIME, #1 EA 0 Refills 11/14/16 Amlodipine Besylate* (AMLODIPINE BESYLATE*) 10 Mg Tablet, 10 MG ORAL DAILY, TAB 11/14/16 Clonidine Hcl* (CATAPRES*) 0.2 Mg Tablet, 0.2 MG ORAL BID, TAB 11/14/16 Telmisartan (Telmisartan) 80 Mg Tablet, 80 MG PO, TAB 11/14/16 Carvedilol* (CARVEDILOL*) 6.25 Mg Tablet, 6.25 MG ORAL EVERY 12 HOURS, TAB 11/14/16 Rosuvastatin Calcium* (CRESTOR*) 10 Mg Tablet, 10 MG ORAL DAILY, TAB 11/14/16 Ferrous Sulfate (FEROSUL) 325 Mg Tablet, 325 MG PO, TAB 11/14/16 Lipase/Protease/Amylase (CREON DR 24,000 UNITS CAPSULE) 1 Each Capsule.dr, 1 EACH PO, CAP 11/14/16 Montelukast Sodium* (MONTELUKAST SODIUM*) 10 Mg Tablet, 10 MG ORAL DAILY, TAB 11/14/16 Aspirin* (ASPIR 81*) 81 Mg Tablet.dr, 81 MG ORAL DAILY, TAB 11/14/16 Levothyroxine Sodium* (LEVOTHYROXINE SODIUM*) 50 Mcg Tablet, 50 MCG ORAL DAILY, TAB Take in the morning on an empty stomach, at least 30 minutes before food. 11/14/16 Patient History Allergies: Coded Allergies: No Known Allergies (Unverified , 11/14/16) PAST MEDICAL HISTORY: Past Surgeries: Social History: Pre-Procedural Mod Sedation Date: Nov 17, 2016 Pre-Assessment Time: 10:15 Pre-Sedation Assessment: Eval. Immed. Prior to Sed Airway Assessment (Malampati): III Heart: normal Lungs: normal Abdomen: normal Extremities: normal Evaluation Hx of untoward rxns to mod sed: No Procedures/Plans: Radiology Plan for Moderate Sedation: Midazolam, Fentanyl ASA Score: II Informed Consent The nature of the procedure/sedation; its benefits; risks and complications; and alternatives (and the risks and benefits of such alternatives) were discussed with the patient (or their legal administrative representative), prior to the procedure. All questions were answered to the patient's (or their legal administrative representative's) satisfaction and the patient (or their legal administrative representative) gave informed consent to the procedure. I attest that I re-evaluated the patient just prior to the surgery and that there has been no change in the patient's H&P, except as documented below: Post Procedure Assessment Post Procedure TIme: 10:45 Communication: No Apparent Limitation Mental Status: Awake Respiration: Unlabored Skin Condition: WNL Adomen: WNL Nausea: NO Vomiting: NO JOSE HERNANDEZ M.D. Nov 17, 2016 10:17
[2016-11-17] MEDS ORDERED: Vancomycin 1.5gm/D5W 250ml 250 ML IVPB ONE (11:00)
--- NOTE | 2016-11-17 11:17 | Diagnostic Imaging Report ---
Indication: RENAL-C renal function tests Technique: Grayscale and duplex images of the kidneys, retroperitoneum, and bladder were obtained. Comparison:None Findings: Right kidney measures 11 cm in length. Left kidney measures 10.6 cm in length. Both kidneys demonstrate increased echogenicity. No hydronephrosis. Left kidney demonstrates a questionable echogenic shadowing focus in the interpolar region. Inferior vena cava is not well visualized, due to overlying central scar. Bladder is empty, contains a Palacios catheter. Impression: Echogenic kidneys bilaterally, consistent with medical renal disease Negative for hydronephrosis Palacios catheter within empty bladder Possible nonobstructive left renal calculus Suboptimal visualization of the inferior vena cava, as described.
[2016-11-17] MEDS ORDERED: NovoLOG Insulin Flexpen SUBQ SCH (11:50)
--- NOTE | 2016-11-17 12:30 | Brief Operative Note ---
Immediate Post Operative Note Operative Note Pre-op Diagnosis: Renal failure Procedure: permacath Post-op Diagnosis: same as pre-op Findings: consistent w/pre-op dx studies Surgeon: Ryland HERNANDEZ Anesthesia: local Specimen: none Complications: none Condition: stable Fluids: none Estimated Blood Loss: none Implant(s) used?: Yes - 23 cm BioFlo JOSE Lisa M.D. Nov 17, 2016 12:30
--- NOTE | 2016-11-17 15:17 | Cardiology Report ---
APPROVED REPORT EKG Measurement Heart [id number] Normal sinus rhythm Septal infarct, age undetermined Abnormal ECG
--- NOTE | 2016-11-17 17:12 | Diagnostic Imaging Report ---
Indications: Needs long-term dialysis access Technique: Patient already on antibiotics . Total sterile technique, including sterile gloves, hand hygiene, hat, mask,, sterile gown, large sterile drape, and preparation with 2% chlorhexidine utilized. Local anesthesia with 1% lidocaine. Under real-time ultrasound guidance, puncture right internal jugular vein using 21-gauge micropuncture needle, passage 0.018 guidewire, exchange for 4 Greek micropuncture introducer. The guidewire was used to measure the appropriate catheter length, and was removed. The sheath was left in place. The subcutaneous tract was then anesthetized with 1% lidocaine. A chest dermatotomy was made . The tunneling device was used to pull a 15.5 Greek 23 cm BioFlo catheter through the subcutaneous tunnel to the neck dermatotomy. A guidewire was passed through the neck introducer into the inferior vena cava, and serial dilators were passed over it, followed by the introduction of a 14.5 Greek AirGuard peel-away sheath. The catheter was then introduced into the sheath, the peel-away sheath was removed. Digital radiograph documents satisfactory catheter tip position in the high right atrium, no kinking at the insertion site. Both catheter ports aspirated and flushed. Catheter was fixed to the skin. Patient tolerated procedure well without immediate complication. Total fluoroscopy time 0.9 minutes. Total dose area product 27 dGycm2 . Comparison: None Findings: Completion radiograph documents satisfactory position and course of the catheter, catheter tip at the high right atrium. Impression: Successful placement of right transjugular tunneled dialysis catheter, as described above
[2016-11-17] MEDS ORDERED: Digoxin 0.125mg tab ORAL ONE (20:00)
[2016-11-17] MEDS ORDERED: dilTIAZem HCl 60mg tab ORAL ONE (20:00)
[2016-11-17] MEDS ORDERED: Epogen (for ESRD on dialysis) SUBQ SCH ×3 (21:00)
[2016-11-17] MEDS: Dyna-Hex 2% Top Sol 2oz TOPIC SCH (21:14)
[2016-11-17] MEDS ORDERED: dilTIAZem HCl 25mg/5ml Inj IV PRN (21:30)
[2016-11-17] MEDS: Levemir Flexpen SUBQ SCH (21:45)
--- NOTE | 2016-11-17 21:56 | Consultation ---
Consult Note Consult Note Cardiology for Dr. Nicole Full consult dictated # [id number] PRISCILLA HOLLIS Nov 17, 2016 21:56
[2016-11-17] MEDS ORDERED: dilTIAZem HCl 25mg/5ml Inj IV ONE (22:00)
[2016-11-17] MEDS: Amiodarone 200mg tab ORAL SCH (22:15)
[2016-11-17 22:27] LABS: BASOPHILS % (AUTO) 0.7 % (0.0-2.0); MEAN CORPUSCULAR HEMOGLOBIN 31.7 PG (27.0-31.0); MEAN CORPUSCULAR HGB CONC 31.5 G/DL (32.0-36.0); MEAN CORPUSCULAR VOLUME 100 FL (80-99); MEAN PLATELET VOLUME 5.4 FL (6.5-10.1); MONOCYTES % (AUTO) 11.2 % (1.0-10.0); NEUTROPHILS % (AUTO) 81.1 % (45.0-75.0); PLATELET COUNT 229 K/UL (150-450); RED BLOOD COUNT 3.64 M/UL (4.70-6.10); RED CELL DISTRIBUTION WIDTH 14.5 % (11.6-14.8); WHITE BLOOD COUNT 17.8 K/UL (4.8-10.8)
[2016-11-17] MEDS ORDERED: Heparin 5000 units/ml inj IV ONE (22:30)
[2016-11-18] VITALS (41 sets, daily range): BP systolic 90–146; BP diastolic 54–100
[2016-11-18] MEDS: Nitroglycerin 2% oint pkt TOPIC SCH ×5 (00:28→23:50)
[2016-11-18] MEDS: Heparin 25,000u/D5W 500ml 500 ML IV SCH ×2 (00:49→16:48)
[2016-11-18] MEDS: NovoLOG Insulin Flexpen SUBQ SCH ×12 (00:50→23:51)
[2016-11-18] MEDS: KCl 10% 40mEq/30ml liquid ORAL SCH ×2 (02:57→04:15)
--- NOTE | 2016-11-18 05:30 | Consultation ---
DATE OF CONSULTATION: 11/18/2016 CARDIAC ELECTROPHYSIOLOGY CONSULTATION CONSULTING PHYSICIAN: Shala Menon M.D. REASON FOR CONSULTATION: Narrow complex tachycardia. History Of Present Illness: The patient is a 66-year-old man with a history of hypertension, asthma, and diabetes, who was admitted on 11/15/2016 with increasing shortness of breath and respiratory failure. He was placed on BiPAP ventilation and admitted to the intensive care unit. He has chronic kidney disease and was found to have an acute worsening of chronic renal failure. He underwent initiation of hemodialysis with improvement in his symptoms. He was to be transferred to [facility] where his insurance is [facility], however, shortly prior to transfer developed a narrow complex tachycardia, rate of about 150 beats per minute. Cardiology evaluation was requested. The patient denies chest pain, shortness of breath, or palpitations. He has no dizziness or lightheadedness. Past Medical History: As noted above, history of diabetes, chronic kidney disease, asthma, and hypertension. Past Surgical History: Status post partial pancreatectomy for pancreatitis several years ago. Medications: Currently vancomycin per pharmacy, amlodipine 5 mg daily, losartan 100 mg daily, prednisone 20 mg daily, ampicillin 500 mg q.24 h., Epogen 8000 units subcutaneously Sunday, Sunday, and Sunday; Lasix 80 mg IV twice daily, insulin NovoLog 28 units subcutaneously in the evening, and clonidine p.r.n. ALLERGIES: No known drug allergies. Social History: The patient is a nonsmoker. He has no history of alcohol or drug abuse. PHYSICAL EXAMINATION: Vital Signs: Pulse 160, regular; respirations 24, blood pressure 130/94, afebrile, and pulse oximeter 94% on room air. General: Alert and well-developed male, in no acute distress. HEENT: Normocephalic and atraumatic. Pupils are equal, round, and reactive to light. Sclerae anicteric. Oral mucosa is moist. Neck: Supple. There is no jugular venous distention. There is a left external jugular intravenous catheter and a tunneled right internal jugular hemodialysis catheter. Lungs: Decreased breath sounds. Slightly prolonged expiratory phase. No rales or rhonchi. Good air movement. HEART: Tachycardic. Regular S1 and S2 with no murmurs or S3. Abdomen: Healed midline surgical scar. Normoactive bowel sounds. Soft and nontender. No palpable mass. Extremities: No cyanosis, clubbing, or edema. A 2+ dorsalis pedis and posterior tibial pulses bilaterally. NEUROLOGIC: No focal motor deficits. Laboratory Data: Sodium is 144, potassium 3.3, BUN 66, and creatinine 7.3. Troponin on admission was less than 0.3. Hemoglobin 10, hematocrit 32, white blood count 15,600, and platelets 229,000. INR 1.0. Diagnostic data: EKG today shows atrial flutter with a ventricular rate of 148 beats per minute. Chest x-ray from today shows cardiomegaly and interstitial edema. Assessment And Recommendations: The patient is a 66-year-old man with a history of hypertension, diabetes, chronic kidney disease, now with end-stage renal disease, initiating hemodialysis. He was admitted with acute worsening of chronic renal failure and is a 66-year-old man with a history of hypertension, diabetes, and chronic kidney disease, who was admitted with renal failure and respiratory failure due to volume overload. He has been placed on hemodialysis and has had two dialysis treatments since admission. Tonight, he developed atrial flutter with 2:1 conduction without symptoms. His ventricular rates are in the range of 140 to 160 beats per minute. He will be transferred to the intensive care unit. He will be started on intravenous heparin for stroke prevention and will also be started on intravenous diltiazem for ventricular rate control. He receives oral diltiazem and digoxin without effect on the tachycardia. We will also start oral amiodarone. If rhythm does not confer, electrical cardioversion will be considered. Over the longer term, he may be a candidate for catheter ablation. We will check serial troponin levels and EKGs to rule out acute coronary syndrome. We will also check venous Duplex of the lower extremities to rule out DVT. Further recommendations will be made based on the results of the above studies and his response to medical therapy. Shala Menon M.D. DR: Del JOB#: [id number] CC:
[2016-11-18 08:40] LABS: CALCIUM 6.5 mg/dL (8.6-10.2); CREATININE 8.1 mg/dL (0.7-1.2); GLOMERULAR FILTRATION RATE 8.1 mL/min (>60); MEAN CORPUSCULAR HEMOGLOBIN 31.4 PG (27.0-31.0); MEAN CORPUSCULAR HGB CONC 31.7 G/DL (32.0-36.0); MEAN CORPUSCULAR VOLUME 99 FL (80-99); MEAN PLATELET VOLUME 5.9 FL (6.5-10.1); PHOSPHORUS 7.7 mg/dL (2.5-4.8); PLATELET COUNT 225 K/UL (150-450); POTASSIUM 3.3 mEQ/L (3.4-4.9); RED BLOOD COUNT 3.37 M/UL (4.70-6.10); RED CELL DISTRIBUTION WIDTH 14.4 % (11.6-14.8); WHITE BLOOD COUNT 20.3 K/UL (4.8-10.8)
[2016-11-18] MEDS: Amiodarone 200mg tab ORAL SCH ×2 (09:00→20:48)
[2016-11-18] MEDS: Losartan 50mg tab ORAL SCH (09:00)
[2016-11-18] MEDS: Renvela 2400 mg pkt NG SCH ×3 (09:22→17:25)
[2016-11-18 10:10] LABS: TROPONIN I 0.32 ng/mL (<=0.30)
[2016-11-18 10:44] LABS: BAND NEUTROPHILS % (MANUAL) 0 % (0-8); BASOPHILS % (MANUAL) 0 % (0-2); EOSINOPHILS % (MANUAL) 0 % (0-3); LYMPHOCYTES % (MANUAL) 10 % (20-45); NEUTROPHILS % (MANUAL) 79 % (45-75); NUCLEATED RED BLOOD CELLS 3 /100 WBC; PLATELET ESTIMATE ADEQUATE; PLATELET MORPHOLOGY NORMAL; TOTAL CELLS COUNTED 100
[2016-11-18] MEDS ORDERED: Vancomycin 1 GM in D5W 275 ML IVPB ONE (11:00)
[2016-11-18] MEDS ORDERED: Vancomycin 1gm/D5W 275ml IVPB ONE ×2 (11:00)
--- NOTE | 2016-11-18 12:34 | Cardiology Progress Note ---
Assessment/Plan Problem List: (1) Atrial flutter (2) End-stage renal disease (3) Hypertension, benign (4) CHF exacerbation (5) Diabetes Status Narrative Mr. Davalos' rhythm has reverted back to sinus from AFL w/ rapid ventricular rates , after treatment w/ amiodarone po and diltiazem, digoxin iv He is undergoing HD today, w/ removal of 2 L planned. Assessment/Plan Will continue iv heparin anticoagulation, given pt's CHADS VASC score of 3 and continue amiodarone loading dose. Can transfer to telemetry. ECHO pending to evaluate LV function. Agree w/ fluid removal w/ hemodialysis. WBC increasing - to be evaluated by PMD Subjective ROS Limited/Unobtainable: No Subjective Mr. Lindsey has no c/o. Undergoing hemodialysis this am Objective Last 24 Hour Vital Signs Date Time Temp Pulse Resp B/P (MAP) Pulse Ox O2 Delivery O2 Flow Rate FiO2 11/18/16 12:08 121/63 11/18/16 11:30 103 22 101/67 98 Room Air 11/18/16 11:00 110 26 104/78 98 Room Air 11/18/16 10:30 114 28 90/56 97 Room Air 11/18/16 10:00 112 24 98/63 95 Room Air 11/18/16 09:24 107 102/67 11/18/16 09:00 102 20 102/67 95 Room Air 11/18/16 09:00 97/60 11/18/16 09:00 103 97/60 11/18/16 08:30 107 22 110/80 95 Room Air 11/18/16 08:10 Room Air 11/18/16 08:00 94 11/18/16 08:00 98.2 87 22 127/89 96 Room Air 11/18/16 07:00 98 21 126/100 96 Nasal Cannula 2.0 11/18/16 06:48 Room Air 21 11/18/16 06:47 95 Room Air 21 11/18/16 06:09 126/76 11/18/16 06:00 101 22 118/66 96 Nasal Cannula 2.0 11/18/16 05:30 98 22 126/76 96 Nasal Cannula 2.0 11/18/16 05:00 82 22 118/76 97 Nasal Cannula 2.0 11/18/16 04:30 78 23 140/64 97 Nasal Cannula 2.0 11/18/16 04:00 98.6 79 21 144/84 97 Nasal Cannula 2.0 11/18/16 04:00 79 11/18/16 03:00 99 21 116/69 96 Nasal Cannula 2.0 11/18/16 02:30 107 20 116/69 97 Nasal Cannula 2.0 11/18/16 02:00 104 23 107/57 96 Nasal Cannula 2.0 11/18/16 01:30 108 23 103/54 97 Nasal Cannula 2.0 11/18/16 01:00 114 23 130/66 98 Nasal Cannula 2.0 11/18/16 00:28 128/57 11/18/16 00:00 98.3 114 23 128/57 98 Nasal Cannula 2.0 11/18/16 00:00 111 11/17/16 22:30 114 23 102/65 99 Nasal Cannula 2.0 11/17/16 22:30 114 102/65 11/17/16 22:00 163 106/77 11/17/16 22:00 98.4 163 24 106/77 99 Nasal Cannula 2.0 11/17/16 21:53 163 11/17/16 21:00 162 11/17/16 20:43 98 Nasal Cannula 2.0 28 11/17/16 20:43 Nasal Cannula 2.0 28 11/17/16 20:08 158 130/94 11/17/16 20:06 158 11/17/16 20:00 98.2 105 24 130/94 94 Room Air 11/17/16 16:00 98.2 84 21 141/77 94 Nasal Cannula 11/17/16 16:00 92 11/17/16 13:45 99.3 93 20 139/79 94 Room Air 11/17/16 13:00 92 23 148/71 97 Nasal Cannula 2.0 General Appearance: WD/WN, no apparent distress, alert EENT: PERRL/EOMI Neck: supple, other - R IJ tunnelled HD catheter Rhythm: NSR Cardiovascular: normal rate, regular rhythm, no gallop/murmur Respiratory/Chest: lungs clear - clear anteriorly Abdomen: non tender, soft Extremities: no swelling Intake and Output 11/18/16 11/19/16 19:00 07:00 Intake Total 420 ml Output Total 0 ml Balance 420 ml Intake Oral 420 ml Output Urine Total 0 ml Laboratory Tests Test 11/17/16 22:20 11/17/16 22:50 11/18/16 06:00 White Blood Count 17.8 K/UL (4.8-10.8) H 20.3 K/UL (4.8-10.8) H Red Blood Count 3.64 M/UL (4.70-6.10) L 3.37 M/UL (4.70-6.10) L Hemoglobin 11.5 G/DL (14.2-18.0) L 10.6 G/DL (14.2-18.0) L Hematocrit 36.5 % (42.0-52.0) L 33.3 % (42.0-52.0) L Mean Corpuscular Volume 100 FL (80-99) H 99 FL (80-99) Mean Corpuscular Hemoglobin 31.7 PG (27.0-31.0) H 31.4 PG (27.0-31.0) H Mean Corpuscular Hemoglobin Concent 31.5 G/DL (32.0-36.0) L 31.7 G/DL (32.0-36.0) L Red Cell Distribution Width 14.5 % (11.6-14.8) 14.4 % (11.6-14.8) Platelet Count 229 K/UL (150-450) 225 K/UL (150-450) Mean Platelet Volume 5.4 FL (6.5-10.1) L 5.9 FL (6.5-10.1) L Neutrophils (%) (Auto) 81.1 % (45.0-75.0) H % (45.0-75.0) Lymphocytes (%) (Auto) 7.0 % (20.0-45.0) L % (20.0-45.0) Monocytes (%) (Auto) 11.2 % (1.0-10.0) H % (1.0-10.0) Eosinophils (%) (Auto) 0.0 % (0.0-3.0) % (0.0-3.0) Basophils (%) (Auto) 0.7 % (0.0-2.0) % (0.0-2.0) Activated Partial Thromboplast Time 25 SEC (23-33) 67 SEC (23-33) H Potassium Level 2.7 mEQ/L (3.4-4.9) *L 3.3 mEQ/L (3.4-4.9) L Differential Total Cells Counted 100 Neutrophils % (Manual) 79 % (45-75) H Lymphocytes % (Manual) 10 % (20-45) L Monocytes % (Manual) 11 % (1-10) H Eosinophils % (Manual) 0 % (0-3) Basophils % (Manual) 0 % (0-2) Band Neutrophils 0 % (0-8) Nucleated Red Blood Cells 3 /100 WBC Platelet Estimate Adequate Platelet Morphology Normal Sodium Level 145 mEQ/L (135-145) Chloride Level 98 mEQ/L (98-107) Carbon Dioxide Level 25 mEQ/L (20-30) Anion Gap 22 (5-15) H Blood Urea Nitrogen 92 mg/dL (7-23) #H Creatinine 8.1 mg/dL (0.7-1.2) H Estimat Glomerular Filtration Rate 8.1 mL/min (>60) Glucose Level 255 mg/dL (74-106) H Calcium Level 6.5 mg/dL (8.6-10.2) L Phosphorus Level 7.7 mg/dL (2.5-4.8) H Troponin I 0.32 ng/mL (<=0.30) *PRISCILLA COOK Nov 18, 2016 12:34
--- NOTE | 2016-11-18 13:19 | Pulmonolgy Critical Care Note ---
Critical Care - Asmt/Plan Assessment/Plan: 1. Respiratory failure, resolved 2. Severe metabolic acidosis, resolved 3. Renal failure, stage 5 now on HD 4. Severe hyperkalemia, resolved 5. Diabetes. 6. Hypertension. 7. Possible pneumonia. 8. UTI d/t enterococcus. 9. Asthma 10. afib with rvr improved with HD/UF oral steroids, ampicillin atrovent nebs K low OK for transfer to [facility] when off cardizem drip PermCath, HD o2 fu labs and chxr greater than 35 mintues of critical care time spent with the pt discussing with the nursing staff, order, charting and reviewing. continue ICU while on cardizem drip Critical Care - Objective Last 24 Hour Vital Signs Date Time Temp Pulse Resp B/P (MAP) Pulse Ox O2 Delivery O2 Flow Rate FiO2 11/18/16 12:08 121/63 11/18/16 12:00 97.9 101 26 121/63 97 Room Air 11/18/16 12:00 103 11/18/16 11:45 Room Air 11/18/16 11:30 103 22 101/67 98 Room Air 11/18/16 11:00 110 26 104/78 98 Room Air 11/18/16 10:30 114 28 90/56 97 Room Air 11/18/16 10:00 112 24 98/63 95 Room Air 11/18/16 09:24 107 102/67 11/18/16 09:00 102 20 102/67 95 Room Air 11/18/16 09:00 97/60 11/18/16 09:00 103 97/60 11/18/16 08:30 107 22 110/80 95 Room Air 11/18/16 08:10 Room Air 11/18/16 08:00 94 11/18/16 08:00 98.2 87 22 127/89 96 Room Air 11/18/16 07:00 98 21 126/100 96 Nasal Cannula 2.0 11/18/16 06:48 Room Air 21 11/18/16 06:47 95 Room Air 21 11/18/16 06:09 126/76 11/18/16 06:00 101 22 118/66 96 Nasal Cannula 2.0 11/18/16 05:30 98 22 126/76 96 Nasal Cannula 2.0 11/18/16 05:00 82 22 118/76 97 Nasal Cannula 2.0 11/18/16 04:30 78 23 140/64 97 Nasal Cannula 2.0 11/18/16 04:00 98.6 79 21 144/84 97 Nasal Cannula 2.0 11/18/16 04:00 79 11/18/16 03:00 99 21 116/69 96 Nasal Cannula 2.0 11/18/16 02:30 107 20 116/69 97 Nasal Cannula 2.0 11/18/16 02:00 104 23 107/57 96 Nasal Cannula 2.0 11/18/16 01:30 108 23 103/54 97 Nasal Cannula 2.0 11/18/16 01:00 114 23 130/66 98 Nasal Cannula 2.0 11/18/16 00:28 128/57 11/18/16 00:00 98.3 114 23 128/57 98 Nasal Cannula 2.0 11/18/16 00:00 111 11/17/16 22:30 114 23 102/65 99 Nasal Cannula 2.0 11/17/16 22:30 114 102/65 11/17/16 22:00 163 106/77 11/17/16 22:00 98.4 163 24 106/77 99 Nasal Cannula 2.0 11/17/16 21:53 163 11/17/16 21:00 162 11/17/16 20:43 98 Nasal Cannula 2.0 11/17/16 20:43 Nasal Cannula 2.0 11/17/16 20:08 158 130/94 11/17/16 20:06 158 11/17/16 20:00 98.2 105 24 130/94 94 Room Air 11/17/16 16:00 98.2 84 21 141/77 94 Nasal Cannula 11/17/16 16:00 92 11/17/16 13:45 99.3 93 20 139/79 94 Room Air Status: awake Condition: improving Lungs: wheezing Heart: HR/BP stable Abdomen: soft, non-tender Extremities: edema Decubiti: location Accucheck: 222 Blood Sugars: BS not controlled Critical Care - Subjective ROS Limited/Unobtainable: No Condition: critical EKG Rhythm: Sinus Rhythm FI02: 21 Vent Support Mode: BiLevel Sputum Amount: None I&O: Intake and Output 11/18/16 11/19/16 19:00 07:00 Intake Total 420 ml Output Total 2010 ml Balance -1590 ml Intake Oral 420 ml Output Urine Total 0 ml Hemodialysis UF 2010 ml Subjective: seen and examined hx reviewed afib rate controlled on cardizem sp hd 2 l reviewed still with scant wheezing on supple no no fever no bleeding Labs: Current Medications Medications (Trade) Dose Ordered Sig/Monica Route PRN Reason Start Time Stop Time Status Last Admin Dose Admin Amiodarone HCl (Cordarone) 400 mg EVERY 12 HOURS ORAL 11/17/16 22:15 12/17/16 22:14 11/17/16 22:15 Amlodipine Besylate (Norvasc) 5 mg DAILY ORAL 11/18/16 09:00 12/01/16 20:59 Ampicillin (Ampicillin) 500 mg Q24H ORAL 11/17/16 21:00 11/24/16 20:59 11/17/16 21:07 Chlorhexidine Gluconate (Dina-Hex 2%) 1 applic BEDTIME TOPIC 11/17/16 21:00 12/16/16 20:59 11/17/16 21:14 Clonidine HCl (Catapres) 0.1 mg Q4H PRN ORAL SBP ABOVE 180 11/17/16 14:00 12/01/16 13:59 Dextrose (Dextrose 50%) STAT PRN IV Hypoglycemia 11/17/16 14:00 12/17/16 13:59 Diltiazem HCl 125 mg/Dextrose 125 ml @ 0 mls/hr Q24H IV 11/17/16 22:30 11/18/16 22:29 11/18/16 09:24 Epoetin Henok (Procrit (for ESRD on dialysis)) 8,000 units SUN-SUN-SUN SUBQ 11/17/16 21:00 12/17/16 20:59 11/17/16 21:14 Furosemide (Lasix) 80 mg BID IV 11/17/16 18:00 12/17/16 08:59 Heparin Sodium/ Dextrose 500 ml @ 29.893 mls/ hr adjust per protocol IV 11/17/16 22:00 12/17/16 21:59 11/18/16 00:49 Insulin Aspart (NovoLOG) Q3HR SUBQ 11/17/16 15:00 12/15/16 09:29 11/18/16 12:38 Insulin Aspart (NovoLOG) 28 units NOVOTIAC SUBQ 11/17/16 16:50 12/17/16 11:49 11/17/16 19:28 Insulin Detemir (Levemir) 15 units BEDTIME SUBQ 11/17/16 21:00 12/15/16 20:59 11/17/16 21:45 Losartan Potassium (Cozaar) 100 mg DAILY ORAL 11/18/16 09:00 12/07/18 21:00 Metolazone (Zaroxolyn) 5 mg BID@0830,2030 ORAL 11/17/16 20:30 12/17/16 08:29 11/18/16 09:22 Nitroglycerin (Nitro-Bid) 1 inch Q6HR TOPIC 11/17/16 18:00 12/15/16 11:59 11/18/16 12:08 Prednisone (predniSONE) 20 mg DAILY ORAL 11/18/16 09:00 12/17/16 09:59 11/18/16 09:23 Sevelamer Carbonate (Renvela) 2,400 mg THREE TIMES A DAY NG 11/17/16 18:00 12/16/16 17:59 11/18/16 09:22 Sodium Chloride 1,000 ml @ 500 mls/hr Q2H PRN IVLG sbp<90 during hd 11/17/16 13:45 11/18/16 23:59 Vancomycin HCl (Vanco rx to dose) 1 ea DAILY PRN MISC Per rx protocol 11/17/16 14:00 12/17/16 13:59 GEREMIAS ROMAN DO Nov 18, 2016 13:19
[2016-11-18] MEDS ORDERED: D5W 550ml IV ONE (14:08)
[2016-11-18] MEDS ORDERED: Tubing IV Secondary IV ONE (14:08)
--- NOTE | 2016-11-18 15:11 | Nephrology Progress Note ---
Assessment/Plan Assessment 1) ESRD 2) Acute exacerbation of Asthma 3) Moderate fluid overload Plan: HD was done today Subjective Subjective He had HD today with 2 L fluid removal today, still wheezing, started on cardizem drip for A. fib with RVR, now converted to sinus Objective Objective Last 24 Hour Vital Signs Date Time Temp Pulse Resp B/P (MAP) Pulse Ox O2 Delivery O2 Flow Rate FiO2 11/18/16 14:00 98 25 95/58 95 Room Air 11/18/16 13:30 99 25 121/75 95 Room Air 11/18/16 13:00 97.9 99 26 143/74 96 Room Air 11/18/16 12:30 101 25 130/67 96 Room Air 11/18/16 12:08 121/63 11/18/16 12:00 97.9 101 26 121/63 97 Room Air 11/18/16 12:00 103 11/18/16 11:45 Room Air 11/18/16 11:30 103 22 101/67 98 Room Air 11/18/16 11:00 110 26 104/78 98 Room Air 11/18/16 10:30 114 28 90/56 97 Room Air 11/18/16 10:00 112 24 98/63 95 Room Air 11/18/16 09:24 107 102/67 11/18/16 09:00 102 20 102/67 95 Room Air 11/18/16 09:00 97/60 11/18/16 09:00 103 97/60 11/18/16 08:30 107 22 110/80 95 Room Air 11/18/16 08:10 Room Air 11/18/16 08:00 94 11/18/16 08:00 98.2 87 22 127/89 96 Room Air 11/18/16 07:00 98 21 126/100 96 Nasal Cannula 2.0 11/18/16 06:48 Room Air 21 11/18/16 06:47 95 Room Air 21 11/18/16 06:09 126/76 11/18/16 06:00 101 22 118/66 96 Nasal Cannula 2.0 11/18/16 05:30 98 22 126/76 96 Nasal Cannula 2.0 11/18/16 05:00 82 22 118/76 97 Nasal Cannula 2.0 11/18/16 04:30 78 23 140/64 97 Nasal Cannula 2.0 11/18/16 04:00 98.6 79 21 144/84 97 Nasal Cannula 2.0 11/18/16 04:00 79 11/18/16 03:00 99 21 116/69 96 Nasal Cannula 2.0 11/18/16 02:30 107 20 116/69 97 Nasal Cannula 2.0 11/18/16 02:00 104 23 107/57 96 Nasal Cannula 2.0 11/18/16 01:30 108 23 103/54 97 Nasal Cannula 2.0 11/18/16 01:00 114 23 130/66 98 Nasal Cannula 2.0 11/18/16 00:28 128/57 11/18/16 00:00 98.3 114 23 128/57 98 Nasal Cannula 2.0 11/18/16 00:00 111 11/17/16 22:30 114 23 102/65 99 Nasal Cannula 2.0 11/17/16 22:30 114 102/65 11/17/16 22:00 163 106/77 11/17/16 22:00 98.4 163 24 106/77 99 Nasal Cannula 2.0 11/17/16 21:53 163 11/17/16 21:00 162 11/17/16 20:43 98 Nasal Cannula 2.0 28 11/17/16 20:43 Nasal Cannula 2.0 28 11/17/16 20:08 158 130/94 11/17/16 20:06 158 11/17/16 20:00 98.2 105 24 130/94 94 Room Air 11/17/16 16:00 98.2 84 21 141/77 94 Nasal Cannula 11/17/16 16:00 92 Intake and Output 11/18/16 11/19/16 19:00 07:00 Intake Total 697.251 ml Output Total 2130 ml Balance -1432.749 ml Intake Oral 420 ml IV Total 277.251 ml Output Urine Total 120 ml Hemodialysis UF 2010 ml # Bowel Movements 1 Laboratory Tests 11/17/16 22:20: White Blood Count 17.8H, Red Blood Count 3.64L, Hemoglobin 11.5L, Hematocrit 36.5L, Mean Corpuscular Volume 100H, Mean Corpuscular Hemoglobin 31.7H, Mean Corpuscular Hemoglobin Concent 31.5L, Red Cell Distribution Width 14.5, Platelet Count 229, Mean Platelet Volume 5.4L, Neutrophils (%) (Auto) 81.1H, Lymphocytes (%) (Auto) 7.0L, Monocytes (%) (Auto) 11.2H, Eosinophils (%) (Auto) 0.0, Basophils (%) (Auto) 0.7, Activated Partial Thromboplast Time 25 11/17/16 22:50: Potassium Level 2.7*L 11/18/16 06:00: White Blood Count 20.3H, Red Blood Count 3.37L, Hemoglobin 10.6L, Hematocrit 33.3L, Mean Corpuscular Volume 99, Mean Corpuscular Hemoglobin 31.4H, Mean Corpuscular Hemoglobin Concent 31.7L, Red Cell Distribution Width 14.4, Platelet Count 225, Mean Platelet Volume 5.9L, Neutrophils (%) (Auto) , Lymphocytes (%) (Auto) , Monocytes (%) (Auto) , Eosinophils (%) (Auto) , Basophils (%) (Auto) , Activated Partial Thromboplast Time 67H, Potassium Level 3.3L, Differential Total Cells Counted 100, Neutrophils % (Manual) 79H, Lymphocytes % (Manual) 10L, Monocytes % (Manual) 11H, Eosinophils % (Manual) 0, Basophils % (Manual) 0, Band Neutrophils 0, Nucleated Red Blood Cells 3, Platelet Estimate Adequate, Platelet Morphology Normal, Sodium Level 145, Chloride Level 98, Carbon Dioxide Level 25, Anion Gap 22H, Blood Urea Nitrogen 92#H, Creatinine 8.1H, Estimat Glomerular Filtration Rate 8.1, Glucose Level 255H, Calcium Level 6.5L, Phosphorus Level 7.7H, Troponin I 0.32*H Height (Feet): 5 Height (Inches): 7.00 Weight (Pounds): 191 General Appearance: WD/WN, no apparent distress EENT: PERRL/EOMI Neck: non-tender, normal alignment Cardiovascular: normal rate, regular rhythm, JVD - high Respiratory/Chest: chest wall non-tender, expiratory wheezing Extremities: trace edema 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
[2016-11-18] MEDS: Ipratropium 0.02% Inh Soln 2.5ml UD HHN SCH ×3 (15:26→23:17)
[2016-11-18] MEDS: Dyna-Hex 2% Top Sol 2oz TOPIC SCH (20:47)
[2016-11-18] MEDS: Levemir Flexpen SUBQ SCH (20:49)
[2016-11-19] VITALS (22 sets, daily range): BP systolic 112–165; BP diastolic 66–87
[2016-11-19] MEDS: NovoLOG Insulin Flexpen SUBQ SCH ×10 (02:38→21:03)
[2016-11-19] MEDS: Ipratropium 0.02% Inh Soln 2.5ml UD HHN SCH ×6 (02:52→23:00)
[2016-11-19 05:15] LABS: TROPONIN I < 0.30 ng/mL (<=0.30)
[2016-11-19] MEDS: Nitroglycerin 2% oint pkt TOPIC SCH ×3 (05:50→17:26)
[2016-11-19] MEDS ORDERED: Heparin 25,000u/D5W 500ml 500 ML IV SCH ×2 (06:55→18:15)
[2016-11-19] MEDS: Amiodarone 200mg tab ORAL SCH ×2 (08:24→18:17)
[2016-11-19] MEDS: Losartan 50mg tab ORAL SCH (08:24)
--- NOTE | 2016-11-19 08:42 | Pulmonolgy Critical Care Note ---
Critical Care - Asmt/Plan Assessment/Plan: 1. Respiratory failure, resolved 2. Severe metabolic acidosis, resolved 3. Renal failure, stage 5 now on HD 4. Severe hyperkalemia, resolved 5. Diabetes. 6. Hypertension. 7. Possible pneumonia. 8. UTI d/t enterococcus. 9. Asthma 10. afib with rvr doing better hr controlled oral steroids, ampicillin atrovent nebs K low OK for transfer to [facility] when bed available PermCath, HD o2 fu labs and chxr greater than 35 mintues of critical care time spent with the pt discussing with the nursing staff, order, charting and reviewing. 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 publisher, cardio Discussed with: nurses Critical Care - Objective Last 24 Hour Vital Signs Date Time Temp Pulse Resp B/P (MAP) Pulse Ox O2 Delivery O2 Flow Rate FiO2 11/19/16 08:25 101 141/91 11/19/16 08:24 141/91 11/19/16 07:30 91 16 100 Room Air 11/19/16 07:21 99 Room Air 11/19/16 07:21 89 16 99 Room Air 11/19/16 07:21 Room Air 21 11/19/16 07:00 84 17 128/73 97 Room Air 11/19/16 06:30 87 17 138/87 99 Room Air 11/19/16 06:00 89 19 145/71 99 Room Air 11/19/16 05:50 143/83 11/19/16 05:30 89 19 143/83 97 Room Air 11/19/16 05:00 93 20 137/80 96 Room Air 11/19/16 04:30 93 23 146/79 96 Room Air 11/19/16 04:00 98.2 91 20 146/81 97 Room Air 11/19/16 04:00 92 11/19/16 03:30 91 20 144/74 97 Room Air 11/19/16 03:02 93 18 100 Room Air 11/19/16 03:00 89 21 157/87 100 Room Air 11/19/16 02:52 92 17 99 Room Air 11/19/16 02:30 93 21 148/81 98 Room Air 11/19/16 02:00 84 16 165/74 99 Room Air 11/19/16 01:30 88 18 126/81 98 Room Air 11/19/16 01:00 88 18 141/66 97 Room Air 11/19/16 00:30 91 22 151/78 98 Room Air 11/19/16 00:06 92 11/19/16 00:00 97.5 92 22 151/78 100 Room Air 11/18/16 23:50 122/73 11/18/16 23:30 92 26 127/73 98 Room Air 11/18/16 23:25 88 20 100 Room Air 11/18/16 23:17 88 23 97 Room Air 11/18/16 23:00 92 23 129/64 98 Room Air 11/18/16 22:30 92 25 133/72 98 Room Air 11/18/16 22:00 89 22 143/84 98 Room Air 11/18/16 21:30 88 21 146/79 98 Room Air 11/18/16 21:00 88 22 143/76 97 Room Air 11/18/16 20:31 88 11/18/16 20:30 90 21 131/73 98 Room Air 11/18/16 20:00 98.6 92 19 131/68 98 Room Air 11/18/16 19:32 90 18 100 Room Air 11/18/16 19:30 91 18 120/67 100 Room Air 11/18/16 19:23 Room Air 11/18/16 19:23 94 20 Room Air 11/18/16 19:23 98 Room Air 11/18/16 19:23 94 20 98 Room Air 11/18/16 18:56 92 20 125/68 99 Room Air 11/18/16 18:30 93 103/63 99 Room Air 11/18/16 18:00 98 23 114/68 97 Room Air 11/18/16 17:30 101 24 115/71 98 Room Air 11/18/16 17:26 124/67 11/18/16 17:00 97 23 124/67 96 Room Air 11/18/16 16:30 97 22 103/65 95 Room Air 11/18/16 16:00 98.8 99 22 122/65 96 Room Air 11/18/16 16:00 97 11/18/16 15:38 94 18 100 Room Air 21 11/18/16 15:26 100 20 100 Room Air 21 11/18/16 15:00 98 24 123/69 97 Room Air 11/18/16 14:00 98 25 95/58 95 Room Air 11/18/16 13:30 99 25 121/75 95 Room Air 11/18/16 13:00 97.9 99 26 143/74 96 Room Air 11/18/16 12:30 101 25 130/67 96 Room Air 11/18/16 12:08 121/63 11/18/16 12:00 97.9 101 26 121/63 97 Room Air 11/18/16 12:00 103 11/18/16 11:45 Room Air 11/18/16 11:30 103 22 101/67 98 Room Air 11/18/16 11:00 110 26 104/78 98 Room Air 11/18/16 10:30 114 28 90/56 97 Room Air 11/18/16 10:00 112 24 98/63 95 Room Air 11/18/16 09:24 107 102/67 11/18/16 09:00 102 20 102/67 95 Room Air 11/18/16 09:00 97/60 11/18/16 09:00 103 97/60 Status: awake Condition: improving Lungs: clear Heart: HR/BP stable Abdomen: soft, non-tender Extremities: no C/C/E Accucheck: 315 Blood Sugars: BS not controlled Critical Care - Subjective ROS Limited/Unobtainable: No Condition: improving EKG Rhythm: Sinus Rhythm FI02: 21 Vent Support Mode: BiLevel Sputum Amount: None Subjective: seen and examined hx reviewed NSR today off cardizem since yesterday afternoon no hd today wheezing has resolved on supple no no fever no bleeding heparin drip Labs: Laboratory Tests Test 11/19/16 04:10 Activated Partial Thromboplast Time 161 SEC (23-33) *H Troponin I < 0.30 ng/mL (<=0.30) Current Medications Medications (Trade) Dose Ordered Sig/Monica Route PRN Reason Start Time Stop Time Status Last Admin Dose Admin Amiodarone HCl (Cordarone) 400 mg EVERY 12 HOURS ORAL 11/17/16 22:15 12/17/16 22:14 11/19/16 08:24 Amlodipine Besylate (Norvasc) 5 mg DAILY ORAL 11/18/16 09:00 12/01/16 20:59 11/19/16 08:25 Ampicillin (Ampicillin) 500 mg Q24H ORAL 11/17/16 21:00 11/24/16 20:59 11/18/16 20:48 Chlorhexidine Gluconate (Dina-Hex 2%) 1 applic BEDTIME TOPIC 11/17/16 21:00 12/16/16 20:59 11/18/16 20:47 Clonidine HCl (Catapres) 0.1 mg Q4H PRN ORAL SBP ABOVE 180 11/17/16 14:00 12/01/16 13:59 Dextrose (Dextrose 50%) STAT PRN IV Hypoglycemia 11/17/16 14:00 12/17/16 13:59 Epoetin Henok (Procrit (for ESRD on dialysis)) 8,000 units SUN-SUN-SUN SUBQ 11/17/16 21:00 12/17/16 20:59 11/17/16 21:14 Furosemide (Lasix) 80 mg BID IV 11/17/16 18:00 12/17/16 08:59 11/19/16 08:23 Heparin Sodium/ Dextrose 500 ml @ 23.25 mls/ hr adjust per protocol IV 11/19/16 06:55 12/19/16 06:54 11/19/16 06:57 Insulin Aspart (NovoLOG) Q3HR SUBQ 11/17/16 15:00 12/15/16 09:29 11/19/16 05:49 Insulin Aspart (NovoLOG) 28 units NOVOTIAC SUBQ 11/17/16 16:50 12/17/16 11:49 11/17/16 19:28 Insulin Detemir (Levemir) 15 units BEDTIME SUBQ 11/17/16 21:00 12/15/16 20:59 11/18/16 20:49 Ipratropium [place] (Atrovent) 500 mcg Q4HRT HHN 11/18/16 15:00 11/23/16 14:59 11/19/16 07:21 Losartan Potassium (Cozaar) 100 mg DAILY ORAL 11/18/16 09:00 12/07/18 21:00 11/19/16 08:24 Metolazone (Zaroxolyn) 5 mg BID@0830,2030 ORAL 11/17/16 20:30 12/17/16 08:29 11/19/16 08:25 Nitroglycerin (Nitro-Bid) 1 inch Q6HR TOPIC 11/17/16 18:00 12/15/16 11:59 11/19/16 05:50 Prednisone (predniSONE) 20 mg DAILY ORAL 11/18/16 09:00 12/17/16 09:59 11/19/16 08:23 Sevelamer Carbonate (Renvela) 2,400 mg THREE TIMES A DAY NG 11/17/16 18:00 12/16/16 17:59 11/18/16 17:25 Vancomycin HCl (Vanco rx to dose) 1 ea DAILY PRN MISC Per rx protocol 11/17/16 14:00 12/17/16 13:59 GEREMIAS ROMAN DO Nov 19, 2016 08:42
--- NOTE | 2016-11-19 11:39 | Nephrology Progress Note ---
Assessment/Plan Problem List: (1) Hypertension, benign (2) Anemia in chronic kidney disease (3) CHF exacerbation (4) Diabetes (5) End-stage renal disease (6) Hyperkalemia (7) Metabolic acidosis (8) Status asthmaticus Plan improving, less dyspnea, diuresing with lasix, dose adjusted, K replaced , serial dialysis for acidosis and azotemia, discussed need for access with patient and , Permcath order, done dc chapman, r femoral cath removed, PT gait train Subjective HEENT: Reports: no symptoms Genitourinary: Reports: no symptoms Neurologic/Psychiatric: Reports: no symptoms Subjective mild cough Objective Objective Last 24 Hour Vital Signs Date Time Temp Pulse Resp B/P (MAP) Pulse Ox O2 Delivery O2 Flow Rate FiO2 11/19/16 11:17 92 16 100 Room Air 11/19/16 11:07 86 16 99 Room Air 11/19/16 11:00 95 20 113/87 100 Room Air 11/19/16 10:00 89 19 140/78 100 Room Air 11/19/16 09:00 84 17 132/73 97 Room Air 11/19/16 08:25 101 141/91 11/19/16 08:24 141/91 11/19/16 08:00 90 11/19/16 08:00 98.3 96 20 136/85 98 Room Air 11/19/16 07:30 91 16 100 Room Air 11/19/16 07:21 99 Room Air 11/19/16 07:21 89 16 99 Room Air 11/19/16 07:21 Room Air 21 11/19/16 07:00 84 17 128/73 97 Room Air 11/19/16 06:30 87 17 138/87 99 Room Air 11/19/16 06:00 89 19 145/71 99 Room Air 11/19/16 05:50 143/83 11/19/16 05:30 89 19 143/83 97 Room Air 11/19/16 05:00 93 20 137/80 96 Room Air 11/19/16 04:30 93 23 146/79 96 Room Air 11/19/16 04:00 98.2 91 20 146/81 97 Room Air 11/19/16 04:00 92 11/19/16 03:30 91 20 144/74 97 Room Air 11/19/16 03:02 93 18 100 Room Air 11/19/16 03:00 89 21 157/87 100 Room Air 11/19/16 02:52 92 17 99 Room Air 11/19/16 02:30 93 21 148/81 98 Room Air 11/19/16 02:00 84 16 165/74 99 Room Air 11/19/16 01:30 88 18 126/81 98 Room Air 11/19/16 01:00 88 18 141/66 97 Room Air 11/19/16 00:30 91 22 151/78 98 Room Air 11/19/16 00:06 92 11/19/16 00:00 97.5 92 22 151/78 100 Room Air 11/18/16 23:50 122/73 11/18/16 23:30 92 26 127/73 98 Room Air 11/18/16 23:25 88 20 100 Room Air 11/18/16 23:17 88 23 97 Room Air 11/18/16 23:00 92 23 129/64 98 Room Air 11/18/16 22:30 92 25 133/72 98 Room Air 11/18/16 22:00 89 22 143/84 98 Room Air 11/18/16 21:30 88 21 146/79 98 Room Air 11/18/16 21:00 88 22 143/76 97 Room Air 11/18/16 20:31 88 11/18/16 20:30 90 21 131/73 98 Room Air 11/18/16 20:00 98.6 92 19 131/68 98 Room Air 11/18/16 19:32 90 18 100 Room Air 11/18/16 19:30 91 18 120/67 100 Room Air 11/18/16 19:23 Room Air 11/18/16 19:23 94 20 Room Air 11/18/16 19:23 98 Room Air 11/18/16 19:23 94 20 98 Room Air 11/18/16 18:56 92 20 125/68 99 Room Air 11/18/16 18:30 93 103/63 99 Room Air 11/18/16 18:00 98 23 114/68 97 Room Air 11/18/16 17:30 101 24 115/71 98 Room Air 11/18/16 17:26 124/67 11/18/16 17:00 97 23 124/67 96 Room Air 11/18/16 16:30 97 22 103/65 95 Room Air 11/18/16 16:00 98.8 99 22 122/65 96 Room Air 11/18/16 16:00 97 11/18/16 15:38 94 18 100 Room Air 21 11/18/16 15:26 100 20 100 Room Air 21 11/18/16 15:00 98 24 123/69 97 Room Air 11/18/16 14:00 98 25 95/58 95 Room Air 11/18/16 13:30 99 25 121/75 95 Room Air 11/18/16 13:00 97.9 99 26 143/74 96 Room Air 11/18/16 12:30 101 25 130/67 96 Room Air 11/18/16 12:08 121/63 11/18/16 12:00 97.9 101 26 121/63 97 Room Air 11/18/16 12:00 103 11/18/16 11:45 Room Air Intake and Output 11/19/16 11/20/16 19:00 07:00 Intake Total 150 ml Output Total 150 ml Balance 0 ml Intake Oral 150 ml Output Urine Total 150 ml # Bowel Movements 2 Laboratory Tests 11/19/16 04:10: Activated Partial Thromboplast Time 161*H, Troponin I < 0.30 11/19/16 11:02: Activated Partial Thromboplast Time [Pending] Height (Feet): 5 Height (Inches): 7.00 Weight (Pounds): 195 General Appearance: no apparent distress EENT: normal ENT inspection Neck: normal alignment Cardiovascular: normal rate, regular rhythm Respiratory/Chest: rhonchi - bilaterally Abdomen: non tender, soft Extremities: other - no edema 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
--- NOTE | 2016-11-19 13:25 | Cardiology Progress Note ---
Assessment/Plan Problem List: (1) Atrial flutter (2) End-stage renal disease (3) Hypertension, benign (4) CHF exacerbation (5) Diabetes Status: stable, progressing Status Narrative Mr. Davalos' rhythm has reverted back to sinus from AFL w/ rapid ventricular rates. Maintaining SR on telemetry. Has been undergoing HD, w/ 2L removed on 11/18. Minimal troponin elevation, c/w demand ischemia, in setting of rapid v rates w/ AFL on 11/17 Assessment/Plan Will continue iv heparin anticoagulation, given pt's CHADS VASC score of 3 and continue amiodarone loading dose. Start warfarin or NOAC Stable for transfer to [facility]. Subjective ROS Limited/Unobtainable: No Subjective Mr. Lindsey has no c/o. transferred out of ICU Objective Last 24 Hour Vital Signs Date Time Temp Pulse Resp B/P (MAP) Pulse Ox O2 Delivery O2 Flow Rate FiO2 11/19/16 12:56 87 11/19/16 12:00 99 11/19/16 11:38 113/71 11/19/16 11:17 92 16 100 Room Air 11/19/16 11:07 86 16 99 Room Air 11/19/16 11:00 95 20 113/87 100 Room Air 11/19/16 10:00 89 19 140/78 100 Room Air 11/19/16 09:00 84 17 132/73 97 Room Air 11/19/16 08:25 101 141/91 11/19/16 08:24 141/91 11/19/16 08:00 90 11/19/16 08:00 98.3 96 20 136/85 98 Room Air 11/19/16 07:30 91 16 100 Room Air 11/19/16 07:21 99 Room Air 11/19/16 07:21 89 16 99 Room Air 11/19/16 07:21 Room Air 21 11/19/16 07:00 84 17 128/73 97 Room Air 11/19/16 06:30 87 17 138/87 99 Room Air 11/19/16 06:00 89 19 145/71 99 Room Air 11/19/16 05:50 143/83 11/19/16 05:30 89 19 143/83 97 Room Air 11/19/16 05:00 93 20 137/80 96 Room Air 11/19/16 04:30 93 23 146/79 96 Room Air 11/19/16 04:00 98.2 91 20 146/81 97 Room Air 11/19/16 04:00 92 11/19/16 03:30 91 20 144/74 97 Room Air 11/19/16 03:02 93 18 100 Room Air 11/19/16 03:00 89 21 157/87 100 Room Air 11/19/16 02:52 92 17 99 Room Air 11/19/16 02:30 93 21 148/81 98 Room Air 11/19/16 02:00 84 16 165/74 99 Room Air 11/19/16 01:30 88 18 126/81 98 Room Air 11/19/16 01:00 88 18 141/66 97 Room Air 11/19/16 00:30 91 22 151/78 98 Room Air 11/19/16 00:06 92 11/19/16 00:00 97.5 92 22 151/78 100 Room Air 11/18/16 23:50 122/73 11/18/16 23:30 92 26 127/73 98 Room Air 11/18/16 23:25 88 20 100 Room Air 11/18/16 23:17 88 23 97 Room Air 11/18/16 23:00 92 23 129/64 98 Room Air 11/18/16 22:30 92 25 133/72 98 Room Air 11/18/16 22:00 89 22 143/84 98 Room Air 11/18/16 21:30 88 21 146/79 98 Room Air 11/18/16 21:00 88 22 143/76 97 Room Air 11/18/16 20:31 88 11/18/16 20:30 90 21 131/73 98 Room Air 11/18/16 20:00 98.6 92 19 131/68 98 Room Air 11/18/16 19:32 90 18 100 Room Air 11/18/16 19:30 91 18 120/67 100 Room Air 11/18/16 19:23 Room Air 11/18/16 19:23 94 20 Room Air 11/18/16 19:23 98 Room Air 11/18/16 19:23 94 20 98 Room Air 11/18/16 18:56 92 20 125/68 99 Room Air 11/18/16 18:30 93 103/63 99 Room Air 11/18/16 18:00 98 23 114/68 97 Room Air 11/18/16 17:30 101 24 115/71 98 Room Air 11/18/16 17:26 124/67 11/18/16 17:00 97 23 124/67 96 Room Air 11/18/16 16:30 97 22 103/65 95 Room Air 11/18/16 16:00 98.8 99 22 122/65 96 Room Air 11/18/16 16:00 97 11/18/16 15:38 94 18 100 Room Air 21 11/18/16 15:26 100 20 100 Room Air 21 11/18/16 15:00 98 24 123/69 97 Room Air 11/18/16 14:00 98 25 95/58 95 Room Air 11/18/16 13:30 99 25 121/75 95 Room Air General Appearance: WD/WN, no apparent distress, alert EENT: PERRL/EOMI Neck: supple, other - L ext jug iv. R ij hd catheter Cardiovascular: normal rate, regular rhythm, no gallop/murmur Respiratory/Chest: lungs clear Abdomen: non tender, soft, no mass Extremities: no swelling Intake and Output 11/19/16 11/20/16 19:00 07:00 Intake Total 150 ml Output Total 150 ml Balance 0 ml Intake Oral 150 ml Output Urine Total 150 ml # Bowel Movements 3 Laboratory Tests Test 11/19/16 04:10 11/19/16 11:02 Activated Partial Thromboplast Time 161 SEC (23-33) *H 78 SEC (23-33) H Troponin I < 0.30 ng/mL (<=0.30) PRISCILLA HOLLIS Nov 19, 2016 13:25
[2016-11-19] MEDS: Furosemide 80mg tab ORAL SCH (17:26)
[2016-11-19] MEDS: Warfarin Sodium 5mg ORAL SCH (17:28)
[2016-11-19] MEDS ORDERED: Furosemide 80mg tab ORAL SCH (18:00)
--- NOTE | 2016-11-19 19:08 | Cardiology Report ---
APPROVED REPORT EXAM: Two-dimensional and M-mode echocardiogram with Doppler and color Doppler. INDICATION Ventricular function M-Mode DIMENSIONS IVSd1.2 (0.7-1.1cm)Left Atrium (MM)3.9 (1.6-4.0cm) LVDd3.8 (3.5-5.6cm)Aortic Root3.1 (2.0-3.7cm) PWd1.7 (0.7-1.1cm)Aortic Cusp Exc.2.1 (1.5-2.0cm) LVDs2.6 (2.5-4.0cm) PWs1.9 cm Normal left ventricular chamber size, systolic function and wall motion. Left ventricular ejection fraction estimated to be 65-70%. Mild to moderate left ventricular hypertrophy by 2-D. Anterior Echo-free space, may be due to pericardial fat or effusion. Left atrial size at upper limits of normal. Right cardiac chamber sizes are within normal limits. Focal aortic valve sclerosis with adequate cusp excursion. Thickened mitral valve leaflets with normal excursion. Mitral annulus and aortic root calcification. Normal pulmonic valve structure. Normal tricuspid valve structure. IVC measured at 2.1 cm with slight physiologic collapse suggestive of increased RA pressure. A color flow and spectral Doppler study was performed and revealed: Trace mitral regurgitation. Mitral diastolic velocities suggest reduced left ventricular relaxation c/w mild LV diastolic dysfunction (Grade I). Trace tricuspid regurgitation. Tricuspid systolic velocities suggests peak right ventricular systolic pressure of 16 mmHg. Mild pulmonic regurgitation present. Midl increased velocity across the lvot due to cavity obliteration
[2016-11-19] MEDS ORDERED: Heparin 5000 units/ml inj SUBQ SCH ×2 (21:00)
[2016-11-19] MEDS ORDERED: Dyna-Hex 2% Top Sol 2oz TOPIC SCH (21:00)
[2016-11-19] MEDS ORDERED: Levemir Flexpen SUBQ SCH (21:00)
[2016-11-19] MEDS ORDERED: Amiodarone 200mg tab ORAL SCH (21:00)
[2016-11-20] VITALS: BP 118/70
[2016-11-20] MEDS: Nitroglycerin 2% oint pkt TOPIC SCH ×4 (00:22→17:07)
[2016-11-20] MEDS: NovoLOG Insulin Flexpen SUBQ SCH ×9 (00:24→17:08)
[2016-11-20 01:04] LABS: PROTHROMBIN TIME 10.7 SEC (9.30-11.50)
[2016-11-20] MEDS ORDERED: Heparin 25,000u/D5W 500ml 500 ML IV SCH ×2 (01:15→08:45)
[2016-11-20] MEDS ORDERED: Heparin 5000 units/ml inj IV ONE (01:30)
[2016-11-20] MEDS: Ipratropium 0.02% Inh Soln 2.5ml UD HHN SCH ×4 (03:00→15:08)
[2016-11-20 04:00] VITALS: BP 132/80
[2016-11-20 08:00] VITALS: BP 129/65
[2016-11-20 08:15] LABS: CALCIUM 6.6 mg/dL (8.6-10.2); CREATININE 7.9 mg/dL (0.7-1.2); GLOMERULAR FILTRATION RATE 8.4 mL/min (>60)
[2016-11-20 08:21] LABS: BASOPHILS % (AUTO) 0.6 % (0.0-2.0); EOSINOPHILS % (AUTO) 1.4 % (0.0-3.0); LYMPHOCYTES % (AUTO) 22.3 % (20.0-45.0); MEAN CORPUSCULAR HEMOGLOBIN 32.3 PG (27.0-31.0); MEAN CORPUSCULAR HGB CONC 32.9 G/DL (32.0-36.0); MEAN CORPUSCULAR VOLUME 98 FL (80-99); MEAN PLATELET VOLUME 7.5 FL (6.5-10.1); MONOCYTES % (AUTO) 9.5 % (1.0-10.0); NEUTROPHILS % (AUTO) 66.2 % (45.0-75.0); PLATELET COUNT 176 K/UL (150-450); RED BLOOD COUNT 3.72 M/UL (4.70-6.10); WHITE BLOOD COUNT 17.2 K/UL (4.8-10.8)
[2016-11-20 08:26] LABS: POTASSIUM 2.7 mEQ/L (3.4-4.9)
[2016-11-20] MEDS ORDERED: Losartan 50mg tab ORAL SCH (09:00)
[2016-11-20] MEDS ORDERED: Amiodarone 200mg tab ORAL SCH (09:00)
[2016-11-20] MEDS: Furosemide 80mg tab ORAL SCH ×2 (09:18→17:06)
[2016-11-20] MEDS: Amiodarone 200mg tab ORAL SCH ×2 (09:19→17:06)
[2016-11-20] MEDS ORDERED: Heparin Sod 1000 units/ml 10ml IV ONE ×2 (11:30)
[2016-11-20 12:00] VITALS: BP 152/54
--- NOTE | 2016-11-20 12:56 | Diagnostic Imaging Report ---
APPROVED REPORT CPT Code: 71532 Present Symptoms Comments: STASIS R/O DVT RIGHT LEG: Venous imaging reveals acute thrombus in the common femoral vein and proximal greater saphenous vein Remainder of the deep venous system is within normal limits. There is no evidence of thrombus within the superficial femoral, popliteal or tibial segments. LEFT LEG: Venous imaging reveals a patent deep venous system. There is no evidence of thrombus within the femoral, popliteal or tibial segments. The greater saphenous vein is also within normal limits. Doppler indicates normal spontaneous flow within these segments.
--- NOTE | 2016-11-20 13:06 | Pulmonology Progress Note ---
Assessment/Plan Assessment/Plan 1. Respiratory failure, resolved 2. Severe metabolic acidosis, resolved 3. Renal failure, stage 5 now on HD 4. Severe hyperkalemia, resolved 5. Diabetes. 6. Hypertension. 7. Possible pneumonia. 8. UTI d/t enterococcus. 9. Asthma 10. DVT femoral vein 11. SVT, now SR w PACs, PVCs dialysis today still frequent arrhythmias on heparin drip has not been out of bed and has difficulty walking will transfer to [facility] Subjective Constitutional: Reports: other - weak Respiratory: Denies: shortness of breath Allergies: Coded Allergies: No Known Allergies (Unverified , 11/14/16) Objective Last 24 Hour Vital Signs Date Time Temp Pulse Resp B/P (MAP) Pulse Ox O2 Delivery O2 Flow Rate FiO2 11/20/16 12:00 100 11/20/16 11:46 132/80 11/20/16 11:23 Room Air 11/20/16 11:19 Room Air 11/20/16 11:19 Room Air 11/20/16 09:20 84 132/80 11/20/16 09:20 146 11/20/16 09:19 132/80 11/20/16 08:00 97.0 56 18 129/65 96 Room Air 11/20/16 08:00 85 11/20/16 07:59 84 20 Room Air 11/20/16 07:58 84 16 100 Room Air 11/20/16 07:58 Room Air 21 11/20/16 07:50 97 Room Air 11/20/16 07:50 84 16 97 Room Air 11/20/16 05:44 132/80 11/20/16 04:13 90 11/20/16 04:00 98.0 84 18 132/80 100 Room Air 11/20/16 03:34 Room Air 11/20/16 03:33 Room Air 11/20/16 00:22 118/70 11/20/16 00:00 97.9 87 18 118/70 100 Room Air 11/19/16 23:42 90 11/19/16 23:18 Room Air 11/19/16 23:18 Room Air 11/19/16 20:00 97.5 93 20 112/74 100 Room Air 11/19/16 19:53 100 11/19/16 19:40 89 14 100 Room Air 11/19/16 19:33 85 16 99 Room Air 11/19/16 19:32 Room Air 21 11/19/16 19:32 99 Room Air 11/19/16 17:26 158/78 11/19/16 16:00 97.7 83 20 131/75 91 Room Air 11/19/16 16:00 127 11/19/16 15:04 90 14 100 Room Air 11/19/16 14:54 88 16 100 Room Air 11/19/16 14:00 98.1 90 20 158/78 96 Room Air Intake and Output 11/20/16 11/21/16 19:00 07:00 Intake Total 81.453 ml Balance 81.453 ml IV Total 81.453 ml # Bowel Movements 1 General Appearance: no acute distress HEENT: atraumatic Respiratory/Chest: lungs clear Cardiovascular: normal rate, irregularly irregular Abdomen: soft, non tender Extremities: no edema Laboratory Tests 11/20/16 00:30: Prothrombin Time 10.7, Prothromb Time International Ratio 1.0, Activated Partial Thromboplast Time 50H 11/20/16 07:15: Activated Partial Thromboplast Time > 150*H, White Blood Count 17.2H, Red Blood Count 3.72L, Hemoglobin 12.0L, Hematocrit 36.5L, Mean Corpuscular Volume 98, Mean Corpuscular Hemoglobin 32.3H, Mean Corpuscular Hemoglobin Concent 32.9, Red Cell Distribution Width 14.0, Platelet Count 176, Mean Platelet Volume 7.5, Neutrophils (%) (Auto) 66.2, Lymphocytes (%) (Auto) 22.3, Monocytes (%) (Auto) 9.5, Eosinophils (%) (Auto) 1.4, Basophils (%) (Auto) 0.6, Sodium Level 131L, Potassium Level 2.7*L, Chloride Level 86L, Carbon Dioxide Level 22, Anion Gap 23H, Blood Urea Nitrogen 80H, Creatinine 7.9H, Estimat Glomerular Filtration Rate 8.4, Glucose Level 242H, Calcium Level 6.6L Current Medications Medications (Trade) Dose Ordered Sig/Monica Route PRN Reason Start Time Stop Time Status Last Admin Dose Admin Amiodarone HCl (Cordarone) 400 mg BID ORAL 11/19/16 18:30 12/19/16 18:29 11/20/16 09:19 Amlodipine Besylate (Norvasc) 5 mg DAILY ORAL 11/20/16 09:00 12/01/16 20:59 11/20/16 09:20 Ampicillin (Ampicillin) 500 mg BID ORAL 11/19/16 18:00 11/24/16 20:59 11/20/16 09:18 Chlorhexidine Gluconate (Dina-Hex 2%) 1 applic BEDTIME TOPIC 11/19/16 21:00 12/16/16 20:59 11/19/16 21:05 Clonidine HCl (Catapres) 0.1 mg Q4H PRN ORAL SBP ABOVE 180 11/19/16 14:00 12/01/16 13:59 Dextrose (Dextrose 50%) STAT PRN IV Hypoglycemia 11/19/16 14:00 12/17/16 13:59 Epoetin Henok (Procrit (for ESRD on dialysis)) 8,000 units SUN-SUN-SUN SUBQ 11/20/16 21:00 12/17/16 20:59 Furosemide (Lasix) 80 mg BID ORAL 11/19/16 18:00 12/19/16 17:59 11/20/16 09:18 Heparin Sodium/ Dextrose 500 ml @ 24.79 mls/ hr adjust per protocol IV 11/20/16 08:45 12/19/16 18:14 11/20/16 10:04 Insulin Aspart (NovoLOG) AC+HS SUBQ 11/20/16 11:30 12/19/16 14:59 11/20/16 11:45 Insulin Aspart (NovoLOG) 28 units NOVOTIAC SUBQ 11/19/16 16:50 12/17/16 11:49 11/20/16 11:45 Insulin Detemir (Levemir) 15 units BEDTIME SUBQ 11/19/16 21:00 12/15/16 20:59 11/19/16 21:04 Ipratropium Amery (Atrovent) 500 mcg Q4HRT HHN 11/19/16 15:00 11/23/16 14:59 11/20/16 07:57 Losartan Potassium (Cozaar) 100 mg DAILY ORAL 11/20/16 09:00 12/07/18 21:00 11/20/16 09:19 Metolazone (Zaroxolyn) 5 mg BID@0830,2030 ORAL 11/19/16 20:30 12/17/16 08:29 11/20/16 08:14 Nitroglycerin (Nitro-Bid) 1 inch Q6HR TOPIC 11/19/16 18:00 12/15/16 11:59 11/20/16 05:44 Potassium Chloride (K-Dur) 40 meq ONCE ONCE ORAL 11/20/16 14:00 11/20/16 14:01 Prednisone (predniSONE) 20 mg DAILY ORAL 11/20/16 09:00 12/17/16 09:59 11/20/16 09:19 Sevelamer Carbonate (Renvela) 2,400 mg THREE TIMES A DAY ORAL 11/19/16 13:00 12/19/16 09:59 11/20/16 09:19 Sodium Chloride 1,000 ml @ 500 mls/hr Q2H PRN IVLG sbp<90 during hd 11/20/16 11:29 12/20/16 11:28 Warfarin Sodium (Coumadin per pharmacy) 1 ea DAILY PRN MISC Per rx protocol 11/19/16 13:30 12/19/16 13:29 Warfarin Sodium (Coumadin) 5 mg COUMADIN ORAL 11/19/16 17:00 11/24/16 16:59 11/19/16 17:28 ADELAIDA COOL Nov 20, 2016 13:06
--- NOTE | 2016-11-20 15:53 | Nephrology Progress Note ---
Assessment/Plan Problem List: (1) Hypertension, benign (2) Anemia in chronic kidney disease (3) CHF exacerbation (4) Diabetes (5) End-stage renal disease (6) Hyperkalemia (7) Metabolic acidosis (8) Status asthmaticus Plan improving, less dyspnea, diuresing with lasix, dose adjusted, K replaced , serial dialysis for acidosis and azotemia, stable on hd, discussed need for access with patient and , Permcath order, done dc chapman, r femoral cath removed, PT gait train, small dvt likely from fem dialysiss cath removed, can have short term coumadin, aflutter better , low K repleted Subjective Constitutional: Reports: weakness Genitourinary: Reports: no symptoms Neurologic/Psychiatric: Reports: no symptoms Subjective feels better no sob Objective Objective Last 24 Hour Vital Signs Date Time Temp Pulse Resp B/P (MAP) Pulse Ox O2 Delivery O2 Flow Rate FiO2 11/20/16 15:16 98 16 100 Room Air 11/20/16 15:02 96 16 Room Air 11/20/16 12:00 100 11/20/16 12:00 97.3 78 20 152/54 96 Room Air 11/20/16 11:46 132/80 11/20/16 11:23 Room Air 11/20/16 11:19 Room Air 11/20/16 11:19 Room Air 11/20/16 09:20 84 132/80 11/20/16 09:20 146 11/20/16 09:19 132/80 11/20/16 08:00 97.0 56 18 129/65 96 Room Air 11/20/16 08:00 85 11/20/16 07:59 84 20 Room Air 11/20/16 07:58 84 16 100 Room Air 11/20/16 07:58 Room Air 21 11/20/16 07:50 97 Room Air 11/20/16 07:50 84 16 97 Room Air 11/20/16 05:44 132/80 11/20/16 04:13 90 11/20/16 04:00 98.0 84 18 132/80 100 Room Air 11/20/16 03:34 Room Air 11/20/16 03:33 Room Air 11/20/16 00:22 118/70 11/20/16 00:00 97.9 87 18 118/70 100 Room Air 11/19/16 23:42 90 10/1/17 23:18 Room Air 11/19/16 23:18 Room Air 11/19/16 20:00 97.5 93 20 112/74 100 Room Air 11/19/16 19:53 100 11/19/16 19:40 89 14 100 Room Air 11/19/16 19:33 85 16 99 Room Air 11/19/16 19:32 Room Air 21 11/19/16 19:32 99 Room Air 11/19/16 17:26 158/78 11/19/16 16:00 97.7 83 20 131/75 91 Room Air 11/19/16 16:00 127 Intake and Output 11/20/16 11/21/16 19:00 07:00 Intake Total 131.033 ml Balance 131.033 ml IV Total 131.033 ml # Bowel Movements 1 Laboratory Tests 11/20/16 00:30: Prothrombin Time 10.7, Prothromb Time International Ratio 1.0, Activated Partial Thromboplast Time 50H 11/20/16 07:15: Activated Partial Thromboplast Time > 150*H, White Blood Count 17.2H, Red Blood Count 3.72L, Hemoglobin 12.0L, Hematocrit 36.5L, Mean Corpuscular Volume 98, Mean Corpuscular Hemoglobin 32.3H, Mean Corpuscular Hemoglobin Concent 32.9, Red Cell Distribution Width 14.0, Platelet Count 176, Mean Platelet Volume 7.5, Neutrophils (%) (Auto) 66.2, Lymphocytes (%) (Auto) 22.3, Monocytes (%) (Auto) 9.5, Eosinophils (%) (Auto) 1.4, Basophils (%) (Auto) 0.6, Sodium Level 131L, Potassium Level 2.7*L, Chloride Level 86L, Carbon Dioxide Level 22, Anion Gap 23H, Blood Urea Nitrogen 80H, Creatinine 7.9H, Estimat Glomerular Filtration Rate 8.4, Glucose Level 242H, Calcium Level 6.6L Height (Feet): 5 Height (Inches): 7.00 Weight (Pounds): 194 General Appearance: no apparent distress, alert EENT: normal ENT inspection Neck: normal alignment Cardiovascular: regular rhythm Respiratory/Chest: lungs clear Abdomen: non tender, soft Extremities: other - no edema ELO WATSON Nov 20, 2016 15:53
[2016-11-20 16:00] VITALS: BP 112/64
[2016-11-20] MEDS ORDERED: LEVOTHYROXINE25 MCG ORAL (16:23)
[2016-11-20] MEDS ORDERED: CRESTOR10 M1 ORAL (16:25)
[2016-11-20] MEDS ORDERED: COREG6.25 MG ORAL (16:26)
[2016-11-20] MEDS ORDERED: LIPITOR10 MG ORAL (16:26)
[2016-11-20] MEDS ORDERED: MICARDIS80 MG ORAL (16:27)
[2016-11-20] MEDS ORDERED: LANTUS SOL100 UNIT/1 SUBQ (16:29)
[2016-11-20] MEDS ORDERED: HUMALOG100 UNIT/4 SUBQ ×2 (16:31)
[2016-11-20] MEDS ORDERED: QVAR7.3 G2 IH (16:33)
[2016-11-20] MEDS ORDERED: PREDNISOLO15 MG/5 M1 ORAL (16:34)
[2016-11-20] MEDS ORDERED: FUROSEMIDE80 M1 ORAL (16:36)
[2016-11-20] MEDS ORDERED: AMPICILLIN250 MG PO (16:36)
[2016-11-20] MEDS ORDERED: AMIODARONE HCL200 MG ORAL (16:37)
[2016-11-20] MEDS ORDERED: WARFARIN SODIUM2 MG ORAL (16:38)
[2016-11-20] MEDS: Warfarin Sodium 5mg ORAL SCH (17:05)
[2016-11-20 17:07] VITALS: BP 152/54
[2016-11-20] MEDS ORDERED: Epogen (for ESRD on dialysis) SUBQ SCH (21:00)
--- NOTE | 2016-11-21 12:23 | Discharge Summary ---
Discharge Summary Hospital Course Date of Admission Nov 15, 2016 at 00:42 Date of Discharge Nov 20, 2016 at 18:30 Admitting Diagnosis acute respiratory failure, requiring BiPAP asthma exacerbation severe metabolic acidosis ESRD, HPI Braulio Davalos is a 66 year old male who was admitted on Nov 15, 2016 at 00:42 for acute respiratory failure, requiring BiPAP asthma exacerbation , severe metabolic acidosis , ESRD, Hospital Course dc summary #[id number] Discharge Medications Continued Medications: Albuterol Sulfate* (Proair Hfa*) 8.5 Gm Hfa.aer.ad 1 PUFF INH Q6H, #8.5 GM 0 Refills Amiodarone Hcl* (Cordarone*) 200 Mg Tablet 200 MG ORAL TWICE A DAY for 7 Days, TAB Amlodipine Besylate* (Amlodipine Besylate*) 10 Mg Tablet 10 MG ORAL DAILY, TAB Ampicillin (Ampicillin Trihydrate) 250 Mg Capsule 500 MG PO TWICE A DAY for 10 Days Aspirin* (Aspir 81*) 81 Mg Tablet.dr 81 MG ORAL DAILY, TAB Atorvastatin Calcium* (Lipitor*) 10 Mg Tablet 10 MG ORAL DAILY, #30 TAB 0 Refills Beclomethasone Dipropionate (Qvar) 8.7 Gm Aer.w.adap 7.3 GM IH, GM Carvedilol (Coreg) 6.25 Mg Tablet 6.25 MG ORAL EVERY 12 HOURS, TAB Clonidine Hcl* (Catapres*) 0.2 Mg Tablet 0.2 MG ORAL BID, TAB Furosemide* (Lasix*) 80 Mg Tablet 80 MG ORAL TWICE A DAY, TAB Insulin Glargine (Lantus) 100 Unit/1 Ml Insuln.pen 25 UNITS SUBQ BEDTIME, #1 EA 0 Refills Insulin Lispro (Humalog) 100 Unit/1 Ml Cartridge 28 UNITS SUBQ THREE TIMES A DAY, #1 UNITS 0 Refills Insulin Lispro (Humalog) 100 Unit/1 Ml Cartridge 0 SUBQ, #1 UNITS 0 Refills Levothyroxine Sodium* (Levothyroxine Sodium*) 25 Mcg Tablet 25 MCG ORAL DAILY, TAB Take in the morning on an empty stomach, at least 30 minutes before food. Lipase/Protease/Amylase (Enrique De Dios 24,000 Units Capsule) 1 Each Capsule.dr 1 EACH PO, CAP Montelukast Sodium* (Montelukast Sodium*) 10 Mg Tablet 10 MG ORAL DAILY, TAB Prednisolone* (Prelone*) 15 Mg/5 Ml Solution 10 MG ORAL DAILY for 7 Days, ML Telmisartan (Micardis) 80 Mg Tablet 80 MG ORAL QHS, TAB Warfarin Sod* (Warfarin Sod*) 2 Mg Tablet 2 MG ORAL QHS, TAB Discontinued Medications: Carvedilol* (Carvedilol*) 6.25 Mg Tablet 6.25 MG ORAL EVERY 12 HOURS, TAB Ferrous Sulfate (Ferosul) 325 Mg Tablet 325 MG PO, TAB Insulin Aspart (Novolog Flexpen) 100 Unit/1 Ml Insuln.pen Insulin Glargine (Lantus) 100 Unit/1 Ml Insuln.pen 0 SUBQ BEDTIME, #1 EA 0 Refills Levofloxacin (Levofloxacin*) 250 Mg Tablet 250 MG ORAL DAILY, TAB Levothyroxine Sodium* (Levothyroxine Sodium*) 50 Mcg Tablet 50 MCG ORAL DAILY, TAB Take in the morning on an empty stomach, at least 30 minutes before food. Rosuvastatin Calcium (Crestor) 5 Mg Tablet 10 MG ORAL DAILY, TAB Rosuvastatin Calcium* (Crestor*) 10 Mg Tablet 10 MG ORAL DAILY, TAB Telmisartan (Telmisartan) 80 Mg Tablet 80 MG PO, TAB Discharge Discharge Disposition Patient was discharged to Acute Care Facility(02) Discharge Diagnoses: Discharge Instructions Discharge Instructions Special Instructions I have been assigned to complete a D/C Summary on this account. I was not involved in the patient management Charu Juarez NP (Vanchtein) Nov 21, 2016 12:23
--- NOTE | 2016-11-22 16:15 | Discharge Summary 2 SIG ---
DATE OF ADMISSION: 11/15/2016 DATE OF DISCHARGE: 11/20/2016 Reason For Admission: 66-year-old male with history of asthma, diabetes, hypertension, end-stage renal disease, presented to emergency department with increased shortness of breath and wheezing for the last couple of days. He was evaluated and found to have asthma exacerbation and renal failure with hyperkalemia. The patient was placed on BiPAP and admitted to intensive care unit for further management. ADMITTING DIAGNOSES: 1. Acute respiratory failure, secondary to fluid overload and asthma. 2. Severe metabolic acidosis. 3. End-stage renal disease, stage 5. 4. Severe hyperkalemia. 5. Diabetes mellitus with hyperglycemia. 6. Hypertension. 7. Possible pneumonia. 8. Possible urinary tract infection. Hospital Stay: The patient was initially admitted to ICU. Supplemental oxygen initially provided via BiPAP to keep saturation above 92%. Pulmonary toilet provided as needed. Bicarbonate initially was given. Nephrology consult was requested for urgent hemodialysis. Lock Operator seen and evaluated the patient. Temporary hemodialysis catheter was placed, and the patient had hemodialysis. Renal parameters and electrolytes were closely monitored. The patient was on low-dose steroids. The patient was on diuresis. Renal ultrasound revealed no hydronephrosis, but bilateral echogenic kidneys consistent with medical renal disease. Subsequently, long-term hemodialysis catheter via right jugular vein was placed and temporary hemodialysis catheter was discontinued. Lock Operator closely followed. According to dope house operator helper, severe metabolic acidosis likely was due to combination of ketoacidosis, lactic acidosis, and renal acidosis. Blood sugar was managed with a sliding scale of insulin and long-acting Levemir. Hemoglobin A1c at goal -7.1. Urine culture was positive for Enterococcus. Patient was on IV antibiotics. Antibiotics, upon discharge were changed to oral. Hemoglobin and hematocrit were closely monitored. The patient was on Epogen. Blood pressure was managed with antihypertensive medication regimen and was stable. The patient developed atrial fibrillation with rapid ventricular response. Cardiology consult was requested. The patient was given initially oral digoxin and Cardizem however heart rate was still not controlled. Subsequently, the patient was started on IV Cardizem, IV heparin, and oral amiodarone as per Director Corporate Security suggestion. Director Corporate Security recommended if patient would not convert to sinus rhythm, consider electrical cardioversion. The patient was converted initially to supraventricular tachycardia and then to sinus rhythm with frequent PAC and PVC. Director Corporate Security also commented , that over the longer term, he may be a candidate for ablation. Troponin, first was negative, and the next one one was minimally elevated at 0.32, likely troponin leak. Echocardiogram revealed ejection fraction of 65% to 70%, mild to moderate left ventricular hypertrophy, right ventricular systolic pressure of 10. Venous duplex revealed acute DVT in the right common femoral artery. The patient was on the heparin and Coumadin to bridge to the therapeutic INR. The patient slowly was improving. Started to work with physical therapist. Renal parameters were improving. HIV and hepatitis panel both were negative. Creatinine down to 7.9 from initial of 11.2. Mild hypokalemia -3.3, replaced prior to discharge. INR still subtherapeutic. The patient was discharged on low dose of Coumadin, follow up with primary medical doctor to reach therapeutic INR. Respiratory status improved prior to discharge, on oxygen via nasal cannula saturated 96%. FINAL DIAGNOSES: 1. Acute respiratory failure secondary to fluid overload and asthma exacerbation. 2. Atrial fibrillation with rapid ventricular response, resolved. 3. Acute asthma exacerbation. 4. Moderate fluid overload. 5. Severe metabolic acidosis. 6. End-stage renal disease, stage 5 with new onset of hemodialysis. 7. Severe acute hyperkalemia, resolved. 8. Diabetes mellitus with hyperglycemia. 9. Urinary tract infection with Enterococci. 10. Anemia of chronic renal disease. 11. Hypertension. 12. Acute deep vein thrombosis, right lower extremity common femoral vein. 13. Supraventricular tachycardia. DISCHARGE MEDICATIONS: See medication reconciliation list. DISCHARGE INSTRUCTIONS: The patient was discharged home. Followup: Follow up with the primary medical doctor. Follow up with outpatient hemodialysis. Reminded and stressed the importance to follow up with the primary medical doctor for INR check in order to reach therapeutic range. Manish Oviedo M.D. I have been assigned to dictate discharge summary on this account and I was not involved in the patient's management. Charu [facility]illBat[facility], N.PVolodymyr DR: REYNA JOB#: [id number] CC: EWA
== END 2016-11-20 18:30 | disposition home or self-care (01) | DRG 682 ==
LOC: EDBD 23:18 → EMR 23:50 → EDBEDREQ 11-15 00:28 → 2W 11-15 00:42 → EDBEDREQ 11-15 00:50 → ICU 11-15 08:37 → 2E 11-17 13:25 → ICU 11-17 21:57 → 2W 11-19 11:35
PROC: 5A09357 Assistance with Respiratory Ventilation, Less than 24 Consecutive Hours, Continuous Positive Airway Pressure (ICD-10-PCS; principal; 2016-11-15)
PROC: 02H633Z Insertion of Infusion Device into Right Atrium, Percutaneous Approach (ICD-10-PCS; 2016-11-17)
PROC: B214YZZ Fluoroscopy of Right Heart using Other Contrast (ICD-10-PCS; 2016-11-17)
DX: I12.0 Hypertensive chronic kidney disease with stage 5 chronic kidney disease or end stage renal disease (principal); N18.6 End stage renal disease; J96.00 Acute respiratory failure, unspecified whether with hypoxia or hypercapnia; N17.9 Acute kidney failure, unspecified; E87.2 Acidosis; I47.1 Supraventricular tachycardia; J45.901 Unspecified asthma with (acute) exacerbation; N39.0 Urinary tract infection, site not specified; E11.22 Type 2 diabetes mellitus with diabetic chronic kidney disease; E11.65 Type 2 diabetes mellitus with hyperglycemia; E87.5 Hyperkalemia; D63.1 Anemia in chronic kidney disease; B95.2 Enterococcus as the cause of diseases classified elsewhere; Z79.4 Long term (current) use of insulin
CPT/HCPCS: 36415; 36569; 36600; 71010; 76775; 76937; 80048; 80053; 81003; 82044; 82550; 82553; 82570; 82803; 82962; 83036; 83605; 83935; 84100; 84132; 84300; 84484; 85007; 85025; 85610; 85730; 86703; 86803; 87040; 87081; 87086; 87181; 87340; 87517; 93005; 93306; 93970; 94640; 94660; 94664; 94760; J1815; J8499; S5561

== ENCOUNTER 2017-08-22 11:12 | Emergency (ER) | payer OTHER, MEDICARE ==
[~2017-08-22] VITALS: Ht 172.7 cm; Wt 90.7 kg
[~2017-08-22 11:12] MED LIST: AMIODARONE HCL200 MG ORAL; AMLODIPINE BESY10 MG ORAL; AMPICILLIN250 MG PO; ASPIR 8181 MG ORAL; CARVEDILOL6.25 MG ORAL; CATAPRES0.2 MG ORAL; COREG6.25 MG ORAL; CREON DR 24,001 EACH PO; CRESTOR10 M1 ORAL; CRESTOR10 M2 ORAL; FEROSUL325 M1 PO; FUROSEMIDE80 M1 ORAL; HUMALOG100 UNIT/4 SUBQ; LANTUS SOL100 UNIT/1 SUBQ; LEVOFLOXACIN250 MG ORAL; LEVOTHYROXINE25 MCG ORAL; LEVOTHYROXINE50 MCG ORAL; LIPITOR10 MG ORAL; MICARDIS80 MG ORAL; MONTELUKAST SOD10 MG ORAL; NOVOLOG100 UNITS1; PREDNISOLO15 MG/5 M1 ORAL; PROAIR HFA8.5 GM INH; QVAR7.3 G2 IH; TELMISARTAN80 MG PO; WARFARIN SODIUM2 MG ORAL
[2017-08-22 11:48] VITALS: BP 82/55
[2017-08-22 12:00] LABS: EOSINOPHILS % (AUTO) 0.7 % (0.0-3.0); HEMATOCRIT 41.7 % (42.0-52.0); HEMOGLOBIN 13.3 G/DL (14.2-18.0); LYMPHOCYTES % (AUTO) 17.7 % (20.0-45.0); MEAN CORPUSCULAR VOLUME 95 FL (80-99); MONOCYTES % (AUTO) 7.7 % (1.0-10.0); NEUTROPHILS % (AUTO) 72.9 % (45.0-75.0); PLATELET COUNT 293 K/UL (150-450); RED CELL DISTRIBUTION WIDTH 13.3 % (11.6-14.8); WHITE BLOOD COUNT 10.6 K/UL (4.8-10.8)
[2017-08-22 12:10] LABS: ANION GAP 11 mmol/L (5-15); BLOOD UREA NITROGEN 30 mg/dL (7-18); CALCIUM 8.2 MG/DL (8.5-10.1); CARBON DIOXIDE 33 MMOL/L (21-32); CHLORIDE 89 MMOL/L (98-107); CREATININE 4.8 MG/DL (0.55-1.30); POTASSIUM 4.2 MMOL/L (3.5-5.1); SODIUM 133 MMOL/L (136-145)
[2017-08-22 12:15] LABS: ALANINE AMINOTRANSFERASE 29 U/L (12-78); ALBUMIN 4.6 G/DL (3.4-5.0); ALBUMIN/GLOBULIN RATIO 0.8 (1.0-2.7); ALKALINE PHOSPHATASE 185 U/L (46-116); ASPARTATE AMINO TRANSFERASE 26 U/L (15-37); BILIRUBIN,TOTAL 0.3 MG/DL (0.2-1.0)
[2017-08-22 12:16] LABS: INR 3.3 (0.9-1.1)
[2017-08-22] MEDS ORDERED: NS 250 ML IVPB ONE (12:45)
[2017-08-22 13:14] VITALS: BP 92/51
[2017-08-22] MEDS ORDERED: Surgicel 4in x 8in TOPIC ONE (13:15)
[2017-08-22 13:26] VITALS: BP 92/51
--- NOTE | 2017-08-22 13:26 | Emergency Room Report ---
History of Present Illness General Chief Complaint: Wound Recheck/Suture Removal Source: Patient, Family Member, Medical Record Present Illness HPI Patient presents emergency department today complaining of bleeding in the AV fistula on the left arm. Patient states that he recently had AV fistula implanted and matured. He started to use it last month. However today after dialysis it was wrapped he went home and then noticed large amount of bleeding and came here for further evaluation. He denies any fever chest pain short of breath. Denies any nausea vomiting diarrhea chills. Patient appears to have soaked through the Curlex bandage. Patient complains of some dizziness. Symptoms noted to be severe.No other modifying factors. No other associated signs and symptoms. No other complaints were noted. Allergies: Coded Allergies: No Known Allergies (Unverified , 11/14/16) Patient History Past Medical History: DM, HTN, renal disease, dialysis Past Surgical History: none Pertinent Family History: none Social History: Denies: smoking, alcohol use, drug use Reviewed Nursing Documentation: PMH: Agreed; PSxH: Agreed Nursing Documentation-PMH Past Medical History: No History, Except For Hx Hypertension: Yes Hx Asthma: Yes Hx Diabetes: Yes Hx Cancer: No Hx Gastrointestinal Problems: Yes Hx Dialysis: Yes - LUE graft/port; Dialysis M, W, F Hx Neurological Problems: No Review of Systems All Other Systems: negative except mentioned in HPI Physical Exam Vital Signs Date Time Temp Pulse Resp B/P (MAP) Pulse Ox O2 Delivery O2 Flow Rate FiO2 08/22/17 11:21 98.4 105 16 82/55 99 Room Air 98.4 Sp02 EP Interpretation: reviewed, normal General Appearance: alert, moderate distress Head: atraumatic Eyes: bilateral eye normal inspection ENT: normal ENT inspection, hearing grossly normal, normal voice Neck: normal inspection, full range of motion, supple, no bony tend Respiratory: normal inspection, lungs clear, normal breath sounds, no respiratory distress, no retraction, no wheezing Cardiovascular #1: regular rate, rhythm, no edema Gastrointestinal: normal inspection, normal bowel sounds, non tender, soft, no guarding, no hernia Genitourinary: no CVA tenderness Musculoskeletal: back normal, other - Left AV fistula arterial bleed active Neurologic: normal inspection, alert, responsive, speech normal Psychiatric: normal inspection, judgement/insight normal, mood/affect normal Skin: normal inspection, normal color, no rash Procedures Critical Care Time Critical Care Time Patient had a critical medical condition which untreated could potentially result in life or limb threatening injury. Total critical care time excluding procedures was approximately 45 minutes. Medical Decision Making Diagnostic Impression: Primary Impression: Dialysis AV fistula malfunction ER Course Patient presents emergency department today with AV fistula bleeding. Different considerations include erosion of the fistula, bleeding secondary to arterial puncture from the dialysis, anemia. Patient was also hypotensive. Differential considerations include severe anemia, hypovolemic shock just to name a few.Given the severity of the patient's presentation I felt this is a highly complex patient. This patient required extensive workup. Because of patient's unstable vital signs fill the prescription patient and patient require my full and complete attention during time patient was considered critical. Patient left upper extremity wound at the AV fistula site was then dressed. There was pulsatile bleeding. Pressure was applied. John bandage was applied to provide further pressure. This was left on for about 20 or 30 minutes. Surgicel was applied to patient's bleeding site prior to application of the John bandage. Patient tolerated this without difficulty. John bandage was removed and wound recheck. Further bleeding has stopped and clotting appeared to have taken place. Patient's laboratory workup appear to be stable with normal hemoglobin. The because patient was hypotensive patient was given 250 mL bolus with significant improvement in symptoms. Given the patient's bleeding has stopped I felt that no further intervention was needed this time. Patient's wound was dressed with Kerlix. Patient was advised to follow-up with outpatient dialysis center and primary care physician.Patient is advised to follow up with primary doctor in 2-3 days and return the emergency room for any worsening symptoms and as needed. Labs Test 08/22/17 11:46 White Blood Count 10.6 K/UL (4.8-10.8) Red Blood Count 4.40 M/UL (4.70-6.10) Hemoglobin 13.3 G/DL (14.2-18.0) Hematocrit 41.7 % (42.0-52.0) Mean Corpuscular Volume 95 FL (80-99) Mean Corpuscular Hemoglobin 30.2 PG (27.0-31.0) Mean Corpuscular Hemoglobin Concent 31.9 G/DL (32.0-36.0) Red Cell Distribution Width 13.3 % (11.6-14.8) Platelet Count 293 K/UL (150-450) Mean Platelet Volume 5.8 FL (6.5-10.1) Neutrophils (%) (Auto) 72.9 % (45.0-75.0) Lymphocytes (%) (Auto) 17.7 % (20.0-45.0) Monocytes (%) (Auto) 7.7 % (1.0-10.0) Eosinophils (%) (Auto) 0.7 % (0.0-3.0) Basophils (%) (Auto) 1.0 % (0.0-2.0) Prothrombin Time 33.0 SEC (9.30-11.50) Prothromb Time International Ratio 3.3 (0.9-1.1) Activated Partial Thromboplast Time 46 SEC (23-33) Sodium Level 133 MMOL/L (136-145) Potassium Level 4.2 MMOL/L (3.5-5.1) Chloride Level 89 MMOL/L (98-107) Carbon Dioxide Level 33 MMOL/L (21-32) Anion Gap 11 mmol/L (5-15) Blood Urea Nitrogen 30 mg/dL (7-18) Creatinine 4.8 MG/DL (0.55-1.30) Estimat Glomerular Filtration Rate 14.8 mL/min (>60) Glucose Level 432 MG/DL (74-106) Calcium Level 8.2 MG/DL (8.5-10.1) Total Bilirubin 0.3 MG/DL (0.2-1.0) Aspartate Amino Transf (AST/SGOT) 26 U/L (15-37) Alanine Aminotransferase (ALT/SGPT) 29 U/L (12-78) Alkaline Phosphatase 185 U/L (46-116) Total Protein 10.1 G/DL (6.4-8.2) Albumin 4.6 G/DL (3.4-5.0) Globulin 5.5 g/dL Albumin/Globulin Ratio 0.8 (1.0-2.7) Last Vital Signs Date Time Temp Pulse Resp B/P (MAP) Pulse Ox O2 Delivery O2 Flow Rate FiO2 08/22/17 13:14 98.4 90 18 92/51 100 Room Air 98.4 Status: improved Disposition: HOME, SELF-CARE Condition: Stable Patient Instructions: Vascular Access for Hemodialysis Scott Borden MD Aug 22, 2017 13:26
== END 2017-08-22 13:54 | disposition home or self-care (01) ==
LOC: EMR 11:50
DX: T82.838A Hemorrhage due to vascular prosthetic devices, implants and grafts, initial encounter (principal); Y83.8 Other surgical procedures as the cause of abnormal reaction of the patient, or of later complication, without mention of misadventure at the time of the procedure; Y92.9 Unspecified place or not applicable; Z99.2 Dependence on renal dialysis; N28.9 Disorder of kidney and ureter, unspecified; E11.9 Type 2 diabetes mellitus without complications; I10 Essential (primary) hypertension
CPT/HCPCS: 36415; 80053; 85025; 85610; 85730; 86850; 86900; 86901; 99291; J7050

== ENCOUNTER 2018-01-03 15:01 | Inpatient (IN) | payer OTHER, MEDICARE ==
[~2018-01-03] VITALS: Ht 172.7 cm; Wt 93.4 kg
[2018-01-03 15:39] VITALS: BP 153/77
[2018-01-03] MEDS ORDERED: LORazepam Inj 2mg/ml 1ml ONE (16:33)
[2018-01-03] MEDS ORDERED: Ipratropium 0.02% Inh Soln 2.5ml UD ONE (16:43)
[2018-01-03] MEDS ORDERED: Albuterol ud Inhalation ONE (16:43)
[2018-01-03 16:54] LABS: BASOPHILS % (AUTO) 1.5 % (0.0-2.0); EOSINOPHILS % (AUTO) 0.5 % (0.0-3.0); HEMATOCRIT 32.8 % (42.0-52.0); HEMOGLOBIN 10.9 G/DL (14.2-18.0); LYMPHOCYTES % (AUTO) 9.7 % (20.0-45.0); MEAN CORPUSCULAR VOLUME 87 FL (80-99); MONOCYTES % (AUTO) 10.7 % (1.0-10.0); NEUTROPHILS % (AUTO) 77.5 % (45.0-75.0); PLATELET COUNT 211 K/UL (150-450); RED BLOOD COUNT 3.76 M/UL (4.70-6.10); RED CELL DISTRIBUTION WIDTH 17.2 % (11.6-14.8); WHITE BLOOD COUNT 13.5 K/UL (4.8-10.8)
[2018-01-03 16:58] LABS: ANION GAP 18 mmol/L (5-15); BLOOD UREA NITROGEN 78 mg/dL (7-18); CALCIUM 6.6 MG/DL (8.5-10.1); CARBON DIOXIDE 21 MMOL/L (21-32); CHLORIDE 106 MMOL/L (98-107); CREATININE 8.3 MG/DL (0.55-1.30); POTASSIUM 4.8 MMOL/L (3.5-5.1); SODIUM 145 MMOL/L (136-145)
[2018-01-03 17:02] LABS: ALANINE AMINOTRANSFERASE 29 U/L (12-78); ALBUMIN 3.7 G/DL (3.4-5.0); ALBUMIN/GLOBULIN RATIO 0.7 (1.0-2.7); ALKALINE PHOSPHATASE 129 U/L (46-116); ASPARTATE AMINO TRANSFERASE 25 U/L (15-37); BILIRUBIN,TOTAL 0.4 MG/DL (0.2-1.0)
--- NOTE | 2018-01-03 17:04 | Diagnostic Imaging Report ---
Indication: Shortness of breath Technique: One view of the chest Comparison: 11/16/2016 Findings: Again demonstrated is bilateral interstitial and airspace infiltrates versus edema, appearing more extensive than on the prior study. There is probably a small amount of pleural fluid bilaterally. The heart is enlarged. Impression: Bilateral interstitial and airspace infiltrates versus edema, more extensive than on prior exam of 11/16/2016 Cardiomegaly Suspect small bilateral pleural effusion
[2018-01-03 17:13] VITALS: BP 144/68
--- NOTE | 2018-01-03 17:38 | Emergency Room Report ---
History of Present Illness General Chief Complaint: Dyspnea/Respdistress Source: Patient Present Illness HPI This is a 61-year-old male with a history of diabetes, COPD, hypertension, end- stage renal disease on dialysis, who missed dialysis yesterday and complains of moderate shortness of breath that has gone progressively worse. He denies any chest pain. He says exacerbated by exertion. Alleviated by rest. Allergies: Coded Allergies: No Known Allergies (Unverified , 11/14/16) Patient History Past Medical History: see triage record, DM, HTN, CHF Nursing Documentation-PMH Past Medical History: No History, Except For Hx Hypertension: Yes Hx Asthma: Yes Hx Diabetes: Yes Hx Cancer: No Hx Gastrointestinal Problems: Yes Hx Dialysis: Yes - LUE graft/port; Dialysis M, W, F Hx Neurological Problems: No Review of Systems All Other Systems: negative except mentioned in HPI Physical Exam Vital Signs Date Time Temp Pulse Resp B/P (MAP) Pulse Ox O2 Delivery O2 Flow Rate FiO2 01/03/18 15:10 98.8 91 22 153/77 93 Room Air 01/03/18 16:45 50 General Appearance: no apparent distress, alert, GCS 15, non-toxic, moderate distress Neck: full range of motion, supple/symm/no masses Respiratory: chest non-tender, accessory muscle use, crackles, speaking full sentences, wheezing Musculoskeletal: back normal, gait/station normal, normal range of motion, non- tender, calf tenderness Neurologic: alert, oriented x3, responsive, motor strength/tone normal, sensory intact, speech normal Skin: normal color, no rash, warm/dry, well hydrated Medical Decision Making Diagnostic Impression: Primary Impression: Pulmonary edema ER Course Patient was emergently seen and evaluated. The patient has been started on BiPAP. He was also given Ativan. He has become more calm. He has no chest pain. The patient will need emergent dialysis. We will discuss with nephrology. Patient was also given an albuterol treatment. Critical care time is 45 minutes. This included multiple examinations. This did not include procedures. This also included discussion with family and patient and [employer] administrator. Patient presented with a potential life threatening condition. Laboratory Tests Test 01/03/18 16:30 White Blood Count 13.5 K/UL (4.8-10.8) H Red Blood Count 3.76 M/UL (4.70-6.10) L Hemoglobin 10.9 G/DL (14.2-18.0) L Hematocrit 32.8 % (42.0-52.0) L Mean Corpuscular Volume 87 FL (80-99) Mean Corpuscular Hemoglobin 28.9 PG (27.0-31.0) Mean Corpuscular Hemoglobin Concent 33.1 G/DL (32.0-36.0) Red Cell Distribution Width 17.2 % (11.6-14.8) H Platelet Count 211 K/UL (150-450) Mean Platelet Volume 5.4 FL (6.5-10.1) L Neutrophils (%) (Auto) 77.5 % (45.0-75.0) H Lymphocytes (%) (Auto) 9.7 % (20.0-45.0) L Monocytes (%) (Auto) 10.7 % (1.0-10.0) H Eosinophils (%) (Auto) 0.5 % (0.0-3.0) Basophils (%) (Auto) 1.5 % (0.0-2.0) Sodium Level 145 MMOL/L (136-145) Potassium Level 4.8 MMOL/L (3.5-5.1) Chloride Level 106 MMOL/L (98-107) Carbon Dioxide Level 21 MMOL/L (21-32) Anion Gap 18 mmol/L (5-15) H Blood Urea Nitrogen 78 mg/dL (7-18) H Creatinine 8.3 MG/DL (0.55-1.30) H Estimate Glomerular Filtration Rate 7.9 mL/min (>60) Glucose Level 190 MG/DL (74-106) H Calcium Level 6.6 MG/DL (8.5-10.1) L Total Bilirubin 0.4 MG/DL (0.2-1.0) Aspartate Amino Transferase (AST) 25 U/L (15-37) Alanine Aminotransferase (ALT) 29 U/L (12-78) Alkaline Phosphatase 129 U/L (46-116) H Total Protein 8.9 G/DL (6.4-8.2) H Albumin 3.7 G/DL (3.4-5.0) Globulin 5.2 g/dL Albumin/Globulin Ratio 0.7 (1.0-2.7) L EKG Diagnostic Results EKG Time: 15:48 Rate: normal Rhythm: NSR ST Segments: no acute changes Rhythm Strip Diag. Results EP Interpretation: yes Chest X-Ray Diagnostic Results Chest X-Ray Diagnostic Results : Impression: Other - per the radiologist, bilateral interstitial edema Last Vital Signs Date Time Temp Pulse Resp B/P (MAP) Pulse Ox O2 Delivery O2 Flow Rate FiO2 01/03/18 17:13 98.8 95 22 144/68 93 Room Air 01/03/18 16:45 50 Status: improved Disposition: ADMITTED INPATIENT Condition: Serious Physician Consult: Dr. Tidwell - nephrology Referrals: NON PHYSICIAN (PCP) JOSH BOLAÑOS Jan 03, 2018 17:38
[2018-01-03] MEDS ORDERED: LORazepam Inj 2mg/ml 1ml IV ONE (18:00)
[2018-01-03 18:07] VITALS: BP 127/68
[2018-01-03] MEDS ORDERED: ATORVASTATIN CA20 MG ORAL (18:55)
[2018-01-03] MEDS ORDERED: SYMBICORT 16010.2 G1 IH (18:55)
[2018-01-03] MEDS ORDERED: VIBRAMYCIN100 MG ORAL (18:55)
[2018-01-03] MEDS ORDERED: RENA-VITE RX T1 EAC1 PO (18:55)
[2018-01-03] MEDS ORDERED: WARFARIN SODIUM1 MG ORAL (18:55)
[2018-01-03] MEDS ORDERED: AMLODIPINE BESYL5 MG ORAL (18:55)
[2018-01-03] MEDS ORDERED: RENVELA0.8 GM ORAL (18:55)
[2018-01-03] MEDS ORDERED: RENVELA800 MG ORAL (18:55)
[2018-01-03 19:02] VITALS: BP 149/69
[2018-01-03] MEDS ORDERED: Nitroglycerin Subl 0.4mg tab SL PRN (20:45)
[2018-01-03] MEDS ORDERED: Miralax 17gm pkt ORAL PRN (20:45)
[2018-01-03] MEDS: Aspirin Baby 81mg ORAL SCH (20:45)
[2018-01-03] MEDS: Furosemide 80mg tab ORAL SCH (20:45)
[2018-01-03] MEDS: NovoLOG Insulin Flexpen SUBQ SCH (21:00)
[2018-01-03] MEDS: Atorvastatin 20mg tab ORAL SCH (21:00)
[2018-01-03] MEDS: Carvedilol 6.25mg Tab ORAL SCH (21:00)
[2018-01-03] MEDS: Heparin 5000 units/ml inj SUBQ SCH (21:00)
[2018-01-03] MEDS ORDERED: Levemir Flexpen SUBQ SCH (21:00)
[2018-01-03 22:30] VITALS: BP 141/75
[2018-01-03] MEDS: Albuterol/Ipratropium 3ml neb HHN SCH (22:55)
[2018-01-04] VITALS: BP 137/66
[2018-01-04] MEDS: Albuterol/Ipratropium 3ml neb HHN SCH ×6 (03:08→23:56)
[2018-01-04 04:00] VITALS: BP 154/74
[2018-01-04 04:50] LABS: BASOPHILS % (AUTO) 0.8 % (0.0-2.0); EOSINOPHILS % (AUTO) 0.6 % (0.0-3.0); HEMATOCRIT 31.5 % (42.0-52.0); HEMOGLOBIN 10.3 G/DL (14.2-18.0); LYMPHOCYTES % (AUTO) 11.9 % (20.0-45.0); MEAN CORPUSCULAR VOLUME 87 FL (80-99); MONOCYTES % (AUTO) 11.7 % (1.0-10.0); PLATELET COUNT 201 K/UL (150-450); RED BLOOD COUNT 3.61 M/UL (4.70-6.10); RED CELL DISTRIBUTION WIDTH 17.6 % (11.6-14.8); WHITE BLOOD COUNT 11.8 K/UL (4.8-10.8)
[2018-01-04 05:13] LABS: ALANINE AMINOTRANSFERASE 18 U/L (12-78); ALBUMIN 3.3 G/DL (3.4-5.0); ALBUMIN/GLOBULIN RATIO 0.7 (1.0-2.7); ALKALINE PHOSPHATASE 109 U/L (46-116); ANION GAP 16 mmol/L (5-15); ASPARTATE AMINO TRANSFERASE 20 U/L (15-37); BILIRUBIN,TOTAL 0.5 MG/DL (0.2-1.0); BLOOD UREA NITROGEN 59 mg/dL (7-18); CALCIUM 7.2 MG/DL (8.5-10.1); CARBON DIOXIDE 20 MMOL/L (21-32); CHLORIDE 104 MMOL/L (98-107); CHOLESTEROL 114 MG/DL (< 200); CREATININE 6.9 MG/DL (0.55-1.30); HDL CHOLESTEROL 37 MG/DL (40-60); POTASSIUM 4.2 MMOL/L (3.5-5.1); SODIUM 140 MMOL/L (136-145); TRIGLYCERIDES 192 MG/DL (30-150)
[2018-01-04] MEDS: Levothyroxine 25mcg tab ORAL SCH (05:48)
[2018-01-04] MEDS: NovoLOG Insulin Flexpen SUBQ SCH ×5 (05:50→21:02)
[2018-01-04 08:00] VITALS: BP 144/66
[2018-01-04] MEDS: Carvedilol 6.25mg Tab ORAL SCH ×2 (08:25→21:04)
[2018-01-04] MEDS: Furosemide 80mg tab ORAL SCH ×2 (08:25→18:00)
[2018-01-04] MEDS: Aspirin Baby 81mg ORAL SCH (08:25)
[2018-01-04] MEDS: Losartan 50mg tab ORAL SCH (08:26)
[2018-01-04] MEDS: Heparin 5000 units/ml inj SUBQ SCH ×2 (08:27→21:03)
--- NOTE | 2018-01-04 09:27 | Consultation ---
Consult Note Assessment/Plan dict Manish Oviedo MD Jan 04, 2018 09:27
[2018-01-04 12:00] VITALS: BP 140/77
[2018-01-04 16:00] VITALS: BP 155/79
--- NOTE | 2018-01-04 16:15 | Consultation ---
DATE OF CONSULTATION: 01/04/2018 CONSULTING PHYSICIAN: Adelaida Oviedo M.D. ATTENDING PHYSICIAN: Smith Tidwell M.D. HISTORY OF PRESENT ILLNESS: The patient is a 67-year-old man who was admitted with shortness of breath. He has a longstanding asthma and felt that he had an asthma attack two days ago. He felt too weak to go to dialysis and developed respiratory distress, prompting his visit to the emergency department. He was found to have pulmonary edema and respiratory failure and was placed on BiPAP. He was dialyzed last night and he was feeling better this morning. PAST MEDICAL HISTORY: Includes renal failure, on dialysis for about 1 year, longstanding asthma, hypertension, hyperlipidemia, deep vein thrombosis, diabetes, hypothyroidism, paroxysmal atrial fibrillation. MEDICATIONS: Include Lipitor, amlodipine, QVAR, Symbicort, Coreg, doxycycline, Lasix, insulin, thyroxine, Creon, Renvela, Micardis, vitamins, and Coumadin. ALLERGIES: None. REVIEW OF SYSTEMS: Otherwise unremarkable. SOCIAL HISTORY: He is not a smoker. He does not use alcohol to excess. PHYSICAL EXAMINATION: VITAL SIGNS: Show normal findings today. Yesterday he had a temperature of 99.3, blood pressure as high as 154/74, pulse was normal, respirations 30, saturation satisfactory on supplemental oxygen. GENERAL: The patient is obese. SKIN: Warm and dry. HEENT: Head is normocephalic. NECK: No jugular venous distention. No lymphadenopathy. CHEST: Mild wheezing. CARDIAC: Rhythm is regular, sinus rhythm. ABDOMEN: Soft and nontender. There is no liver or spleen enlargement. No mass. EXTREMITIES: No clubbing, cyanosis, or edema. DIAGNOSTIC DATA: Chest x-ray shows pulmonary edema. IMPRESSION: 1. Acute respiratory failure. 2. Acute pulmonary edema due to volume overload from renal failure. 3. Renal failure, missed dialysis. 4. Asthma exacerbation. 5. Hypertension. 6. Hyperlipidemia. 7. DVT and paroxysmal atrial fibrillation on anticoagulation. 8. Diabetes. PLAN: The patient will continue on current medications. He shows improvement following dialysis. We will give DuoNeb treatments every 4 hours and continue his Symbicort. Thanks for asking me to see him in consultation. I will follow closely with you. Adelaida Oviedo M.D. DR: Jessica JOB#: [id number] CC: Smith Tidwell M.D.; Fax#: [phone] ADELAIDA OVIEDO M.D. ; FAX#: [phone]
--- NOTE | 2018-01-04 16:43 | Cardiology Progress Note ---
Assessment/Plan Assessment/Plan The patient is seen and examined, full consult note will be dictated shortly. Objective Last 24 Hour Vital Signs Date Time Temp Pulse Resp B/P (MAP) Pulse Ox O2 Delivery O2 Flow Rate FiO2 01/04/18 15:04 85 20 100 Nasal Cannula 2.0 28 01/04/18 14:56 80 20 96 Nasal Cannula 2.0 28 01/04/18 12:00 3.0 01/04/18 12:00 Room Air 01/04/18 12:00 99.0 83 21 140/77 (98) 98 01/04/18 11:49 81 01/04/18 11:08 83 22 100 Nasal Cannula 3.0 32 01/04/18 11:00 82 22 96 Nasal Cannula 3.0 32 01/04/18 08:26 144/66 01/04/18 08:25 91 144/66 01/04/18 08:25 91 144/66 01/04/18 08:00 Nasal Cannula 3.0 01/04/18 08:00 99.0 91 21 144/66 (92) 98 01/04/18 07:56 90 01/04/18 06:45 89 22 100 Nasal Cannula 2.0 28 01/04/18 06:42 99 Nasal Cannula 3.0 32 01/04/18 06:42 Nasal Cannula 3.0 32 01/04/18 06:40 85 22 98 Nasal Cannula 3.0 32 01/04/18 06:00 3.0 01/04/18 04:05 87 01/04/18 04:00 Bi-pap 01/04/18 04:00 98.8 88 24 154/74 (100) 99 01/04/18 03:18 85 26 98 Bi-pap 35 01/04/18 03:08 84 24 97 Bi-pap 35 01/04/18 03:08 84 24 97 Facial 35 01/04/18 00:56 88 21 99 Facial 35 01/04/18 00:14 50 01/04/18 00:00 98.4 86 21 137/66 (89) 100 01/04/18 00:00 Bi-pap 01/04/18 00:00 84 01/03/18 23:05 87 24 100 Bi-pap 35 01/03/18 22:55 90 26 100 Facial 35 01/03/18 22:55 90 26 100 Bi-pap 35 01/03/18 22:30 99.3 92 30 141/75 (97) 94 01/03/18 21:13 92 01/03/18 21:00 98.8 94 30 146/98 100 Bi-pap 50 01/03/18 21:00 92 141/75 01/03/18 20:45 Nasal Cannula 3.0 01/03/18 19:19 89 30 100 Facial 50 01/03/18 19:02 98.8 94 28 149/69 100 Bi-pap 50 01/03/18 18:07 98.8 95 28 127/68 100 Bi-pap 50 01/03/18 17:13 98.8 95 22 144/68 93 Room Air 01/03/18 16:45 97 28 100 Facial 50 Intake and Output 01/03/18 01/04/18 19:00 07:00 Intake Total 0 ml 100 ml Output Total 350 ml Balance 0 ml -250 ml Intake Oral 0 ml 100 ml Other 0 ml Output Urine Total 350 ml # Voids 1 Laboratory Tests Test 01/04/18 04:00 White Blood Count 11.8 K/UL (4.8-10.8) H Red Blood Count 3.61 M/UL (4.70-6.10) L Hemoglobin 10.3 G/DL (14.2-18.0) L Hematocrit 31.5 % (42.0-52.0) L Mean Corpuscular Volume 87 FL (80-99) Mean Corpuscular Hemoglobin 28.6 PG (27.0-31.0) Mean Corpuscular Hemoglobin Concent 32.8 G/DL (32.0-36.0) Red Cell Distribution Width 17.6 % (11.6-14.8) H Platelet Count 201 K/UL (150-450) Mean Platelet Volume 5.4 FL (6.5-10.1) L Neutrophils (%) (Auto) 75.0 % (45.0-75.0) Lymphocytes (%) (Auto) 11.9 % (20.0-45.0) L Monocytes (%) (Auto) 11.7 % (1.0-10.0) H Eosinophils (%) (Auto) 0.6 % (0.0-3.0) Basophils (%) (Auto) 0.8 % (0.0-2.0) Sodium Level 140 MMOL/L (136-145) Potassium Level 4.2 MMOL/L (3.5-5.1) Chloride Level 104 MMOL/L (98-107) Carbon Dioxide Level 20 MMOL/L (21-32) L Anion Gap 16 mmol/L (5-15) H Blood Urea Nitrogen 59 mg/dL (7-18) H Creatinine 6.9 MG/DL (0.55-1.30) H Estimat Glomerular Filtration Rate 9.7 mL/min (>60) Glucose Level 317 MG/DL (74-106) #H Calcium Level 7.2 MG/DL (8.5-10.1) L Total Bilirubin 0.5 MG/DL (0.2-1.0) Aspartate Amino Transf (AST/SGOT) 20 U/L (15-37) Alanine Aminotransferase (ALT/SGPT) 18 U/L (12-78) Alkaline Phosphatase 109 U/L (46-116) Troponin I 0.328 ng/mL (0.000-0.056) Pro-B-Type Natriuretic Peptide 6826 pg/mL (0-125) H Total Protein 8.1 G/DL (6.4-8.2) Albumin 3.3 G/DL (3.4-5.0) L Globulin 4.8 g/dL Albumin/Globulin Ratio 0.7 (1.0-2.7) L Triglycerides Level 192 MG/DL (30-150) H Cholesterol Level 114 MG/DL (< 200) LDL Cholesterol 53 mg/dL (<100) HDL Cholesterol 37 MG/DL (40-60) L Cholesterol/HDL Ratio 3.1 (3.3-4.4) L Thyroid Stimulating Hormone (TSH) 2.232 uiU/mL (0.358-3.740) Eugene Cameron MD Jan 04, 2018 16:43
[2018-01-04 20:00] VITALS: BP 138/61
--- NOTE | 2018-01-04 20:45 | History and Physical Report ---
DATE OF ADMISSION: 01/03/2018 CHIEF COMPLAINT/REASON FOR HOSPITALIZATION: The patient admitted with shortness of breath, CHF, and asthma. HISTORY OF PRESENT ILLNESS: The patient is a 67-year-old male, well known to me with insulin-dependent diabetes, end-stage renal disease, hypertension, CHF, and asthma. He has been receiving dialysis under my care and started feeling somewhat short of breath and having cough and asthma on 01/01/2018 and stated having missed dialysis on 01/02/2018, and he subsequently came to the emergency room last night with increasing shortness of breath and chest x-ray showing congestive heart failure. He was placed on BiPAP and dialysis was arranged urgently. The patient has had diabetes since 1990. 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 He has had long-standing asthma, hypothyroidism, obesity, hypertension, Charcot joints of the legs, diabetic retinopathy, and neuropathy. PAST SURGICAL HISTORY: Removal of half of the pancreas, several toe amputation surgeries on the leg, eye surgery for retinal detachment cataracts, laser treatment for diabetic retinopathy, and dialysis fistula with dialysis PermCath. HOME MEDICATIONS: Include Lantus 28 units and short-acting insulin 14 units plus sliding scale each meal, amlodipine, atorvastatin, inhalers, nebulizer p.r.n., Coreg, Lasix, levothyroxine, Creon, Renvela, Micardis, Nephro-Aubrey, and warfarin. HABITS: He is a nondrinker and nonsmoker. No use of illicit drugs. 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 REVIEW OF SYSTEMS: HEAD, EYES, EARS, NOSE, AND THROAT: He has diabetic retinopathy with stable vision. Hearing is good. ENDOCRINE: Long-standing diabetes and hypothyroidism. PULMONARY: History of asthma, which has generally been under good control until just very recently. CARDIAC: History of hypertension. No prior history of [place] or prior history of a stress test. He had amiodarone in the past for atrial fibrillation. GASTROINTESTINAL: GI bleeding, abdominal pain, nausea, vomiting. GENITOURINARY: He makes small amounts of urine. NEUROLOGIC: No CVA or seizures. He has diabetic neuropathy. MUSCULOSKELETAL: History of Charcot joints in the feet and difficulty walking. PHYSICAL EXAMINATION: GENERAL: The patient is alert man, currently in no distress. VITAL SIGNS: Temperature 99, blood pressure 144/66, and pulse oximetry 96%. HEAD EYES, EARS, NOSE, AND THROAT: Sclerae are nonicteric. Ocular motions intact in all directions. Oral mucosa moist. NECK: No adenopathy or thyroid enlargement. LUNGS: Few faint wheezes HEART: Rhythm is regular. I hear no murmur. ABDOMEN: Soft without organomegaly or masses. EXTREMITIES: Show 1+ edema. There was an AV access in the left arm. He has had a toe amputation. NEUROLOGIC: He is alert and oriented. Cranial nerves are intact. No focal weakness. PERTINENT LABORATORY DATA: Potassium is 4.2, BUN 59, and creatinine 6.9. Troponin 0.0328. BNP is 6826. Chest x-ray shows congestive heart failure. EKG shows nonspecific ST-T wave changes. IMPRESSION: 1. Congestive heart failure, acute on chronic, likely diastolic. 2. End-stage renal disease. 3. Troponin elevation, likely [id number] myocardial infarction. 4. History of prior atrial fibrillation. PLAN: The patient will be watched closely in view of his comorbidities, serial dialysis, and monitoring of his cardiac status. Smith Tidwell M.D. DR: KAVON JOB#: [id number] CC:
[2018-01-04] MEDS ORDERED: Imdur 30mg tab ORAL SCH (21:00)
[2018-01-04] MEDS ORDERED: Levemir Flexpen SUBQ SCH (21:00)
--- NOTE | 2018-01-04 21:00 | Consultation ---
DATE OF CONSULTATION: 01/04/2018 CARDIOLOGY CONSULTATION CONSULTING PHYSICIAN: Eugene Cameron M.D. REQUESTING PHYSICIAN: Smith Tidwell M.D. REASON FOR CONSULTATION: Management of pulmonary edema/congestive heart failure. HISTORY OF PRESENT ILLNESS: The patient is a very unfortunate 67-year-old gentleman with past medical history significant for diabetes mellitus, chronic obstructive pulmonary disease, hypertension, end-stage renal disease, on hemodialysis, who presents to the hospital after missing one day of the hemodialysis yesterday as he was not feeling well, presenting with shortness of breath that has been progressively worsening throughout the day. He did not have any chest pain. He states that otherwise, he does not have any dyspnea on exertion on his routine basis as long as he continues with his routine hemodialysis 3 days weekly. He states that he denies any lower extremity edema, PND, or orthopnea. On arrival to the emergency department, his blood pressure was 153/77 mmHg and heart rate of 91. A 12-lead electrocardiogram was significant for sinus rhythm at a rate of [address] and T-wave abnormalities although QT interval was prolonged. He was admitted to [facility] for further evaluation and management of dyspnea. Cardiology consultation was made at the request of Dr. Tidwell and on behalf of Dr. Eloy Ruby for whom I am covering. PAST MEDICAL HISTORY: Hypertension, chronic obstructive pulmonary disease, diabetes mellitus, end-stage renal disease, on hemodialysis, on Mondays, Wednesdays, and Fridays, and history of left upper extremity graft/port. PAST SURGICAL HISTORY: Creation of left upper extremity graft. MEDICATIONS: List of medication includes amlodipine 5 mg p.o. daily, atorvastatin 20 mg p.o. at bedtime, Qvar 7.3 gram IH, Symbicort 160/4.5 one puff IH daily p.r.n. shortness of breath, Coreg 6.25 mg p.o. twice daily, Vibramycin 100 mg p.o. twice daily, Lasix 80 mg p.o. twice daily, Lantus insulin 25 units subcutaneous at bedtime, Humalog insulin as needed, levothyroxine 25 mcg p.o. daily, Creon DR 25,000 units capsule 1 daily, Renvela 4000 mg 3 times daily, Micardis 80 mg p.o. at bedtime, Diana-Aubrey 1 tablet p.o. daily, and warfarin 2 mg daily at bedtime every day except Sunday and Sunday taking 1.5 mg. ALLERGIES: No known drug allergies. FAMILY HISTORY: No premature coronary artery disease or arrhythmogenic in the first-degree relatives. SOCIAL HISTORY: Denies any tobacco, alcohol, or illicit drug use. REVIEW OF SYSTEMS: HEENT: Denies any headache, diplopia, or blurred vision. CONSTITUTIONAL: Some generalized weakness, but no fever, chills, or night sweats. CARDIOVASCULAR: Denies any chest pain. Had some shortness of breath following missing hemodialysis. Denies any PND, orthopnea, leg swelling, or syncope. PULMONARY: Denies any cough, hemoptysis, or wheezing. GASTROINTESTINAL: Denies any nausea, vomiting, diarrhea, constipation, abdominal pain, or GI bleed. GENITOURINARY: Does not urinate. He has a very scanty urine on a daily basis on hemodialysis 3 days a week. Denies any hematuria or dysuria. NEUROLOGY: Denies any motor dysfunction, sensory deficit, or altered speech. MUSCULOSKELETAL: Denies any muscle mass, myalgia, or arthralgia. PHYSICAL EXAMINATION: VITAL SIGNS: Blood pressure at time of arrival to the hospital was 152/77, pulse of 91, respirations 22, temperature 98.8 degrees Fahrenheit, and O2 saturation 93% on room air. GENERAL: The patient is a very pleasant 67-year-old gentleman, in no apparent respiratory distress. Currently, getting hemodialysis. HEENT: Atraumatic and normocephalic. Anicteric. Pupils are equal, round, and reactive to light and accommodation. Extraocular muscles intact. NECK: JVP less than 5 cm. No carotid bruit. Carotid upstroke is 2+ bilaterally. CVS: Normal S1, S2. Regular rate and rhythm. No murmurs, gallops, or rubs. PMI is at fourth intercostal space at the left midclavicular line. LUNGS: Clear to auscultation bilaterally. ABDOMEN: Soft, nontender, and nondistended. No hepatosplenomegaly. Positive bowel sounds. EXTREMITIES: No evidence of edema, clubbing, or cyanosis. Right upper extremity graft is evident. DIAGNOSTIC DATA: A 2D echocardiography from 11/18/2016 shows normal LV systolic function with LVEF of about 65% to 70%, [id number] left ventricular hypertrophy, grade 1 LV diastolic dysfunction, RVSP of mmHg, and mild pulmonary regurgitation. LABORATORY FINDINGS: WBC 13.5, hemoglobin 10.9, hematocrit of 32.8, and platelet count is 211,000. Sodium 145, potassium is 4.8, chloride 106, bicarbonate is 21, BUN of 78, and creatinine of 8.3, and glucose is 190. Calcium is 6.6. Troponin I elevated at 0.328. ProBNP was 6826. Total cholesterol 114, LDL of 53, and HDL of 37. Chest x-ray shows cardiomegaly, but bilateral interstitial and pulmonary edema consistent with congestive heart failure and small bilateral pleural effusions. ASSESSMENT AND PLAN: The patient is a very unfortunate 67-year-old gentleman seen in Cardiology consultation at the request of Dr. Tidwell. 1. Most likely acute diastolic congestive heart failure based on the echocardiography loading to normal LV systolic function and LVEF of about 66%. We will obtain another echocardiography for assessment of diastolic function and to verify increased intracardiac filling pressures as it is reflective on beta-natriuretic peptide as well as congestive finding of chest x-ray. The patient is receiving hemodialysis and might be that he needs an extra hemodialysis for further decrease in preload. Further diagnostic and therapeutic decision will be based on the results of a 2D echocardiography. 2. Slight elevation of troponin I level in this patient most likely due to troponin leak associated with end-stage renal disease. We will obtain another troponin I levels. The patient did not have any chest pain at the time of arrival to the hospital. A 12-lead electrocardiogram does not show any ischemic changes. I will continue with conservative management at this time. 3. Most likely hypertensive heart disease. We would like to control blood pressure with amlodipine, losartan, and carvedilol. We will adjust the dose of medication for a goal blood pressure of less than 130/80 mmHg. I would like to thank, Dr. Tidwell for allowing me to participate in the care of this patient. Eugene Cameron M.D. DR: JARRETT JOB#: [id number] CC:
[2018-01-04] MEDS: Atorvastatin 20mg tab ORAL SCH (21:04)
[2018-01-05] VITALS: BP 119/66
[2018-01-05 04:00] VITALS: BP 133/73
[2018-01-05 05:06] LABS: BASOPHILS % (AUTO) 1.4 % (0.0-2.0); EOSINOPHILS % (AUTO) 1.6 % (0.0-3.0); HEMATOCRIT 29.7 % (42.0-52.0); HEMOGLOBIN 9.6 G/DL (14.2-18.0); LYMPHOCYTES % (AUTO) 28.8 % (20.0-45.0); MEAN CORPUSCULAR VOLUME 86 FL (80-99); NEUTROPHILS % (AUTO) 53.1 % (45.0-75.0); PLATELET COUNT 204 K/UL (150-450); RED BLOOD COUNT 3.46 M/UL (4.70-6.10); RED CELL DISTRIBUTION WIDTH 16.9 % (11.6-14.8); WHITE BLOOD COUNT 7.9 K/UL (4.8-10.8)
[2018-01-05 05:22] LABS: ANION GAP 13 mmol/L (5-15); BLOOD UREA NITROGEN 48 mg/dL (7-18); CALCIUM 7.6 MG/DL (8.5-10.1); CARBON DIOXIDE 23 MMOL/L (21-32); CHLORIDE 101 MMOL/L (98-107); CREATININE 6.6 MG/DL (0.55-1.30); POTASSIUM 3.5 MMOL/L (3.5-5.1); SODIUM 137 MMOL/L (136-145)
[2018-01-05 05:53] LABS: INR 1.6 (0.9-1.1)
[2018-01-05] MEDS ORDERED: Heparin Sod 1000 units/ml 10ml IV SCH ×2 (06:00)
[2018-01-05] MEDS: Albuterol/Ipratropium 3ml neb HHN SCH ×4 (06:04→15:17)
[2018-01-05] MEDS: Levothyroxine 25mcg tab ORAL SCH (06:15)
[2018-01-05] MEDS: NovoLOG Insulin Flexpen SUBQ SCH ×6 (06:30→17:02)
[2018-01-05 08:00] VITALS: BP 146/77
[2018-01-05] MEDS: Aspirin Baby 81mg ORAL SCH (08:32)
[2018-01-05] MEDS: Losartan 50mg tab ORAL SCH (08:32)
[2018-01-05] MEDS: Carvedilol 6.25mg Tab ORAL SCH (08:33)
[2018-01-05] MEDS: Furosemide 80mg tab ORAL SCH ×2 (08:33→17:02)
[2018-01-05] MEDS: Heparin 5000 units/ml inj SUBQ SCH (08:37)
[2018-01-05] MEDS ORDERED: Heparin Sod 1000 units/ml 10ml IV PRN ×2 (10:15)
--- NOTE | 2018-01-05 10:40 | Pulmonology Progress Note ---
Assessment/Plan Assessment/Plan 1. Acute respiratory failure. 2. Acute pulmonary edema due to volume overload from renal failure. 3. Renal failure, missed dialysis. 4. Asthma exacerbation. 5. Hypertension. 6. Hyperlipidemia. 7. DVT and paroxysmal atrial fibrillation on anticoagulation. 8. Diabetes. PLAN: HD bipp bs control nebs and suction wound care prn abg cxr in am Subjective ROS Limited/Unobtainable: No Allergies: Coded Allergies: No Known Allergies (Unverified , 11/14/16) Subjective no events noted over night obunded on bipap no reports cp nv or bleeding Objective Last 24 Hour Vital Signs Date Time Temp Pulse Resp B/P (MAP) Pulse Ox O2 Delivery O2 Flow Rate FiO2 01/05/18 08:33 74 146/77 01/05/18 08:33 74 146/77 01/05/18 08:32 146/77 01/05/18 08:28 97 Nasal Cannula 2.0 28 01/05/18 08:28 Nasal Cannula 2.0 28 01/05/18 08:28 74 18 97 Nasal Cannula 2.0 28 01/05/18 08:00 82 01/05/18 08:00 97.9 79 20 146/77 (100) 93 01/05/18 08:00 Room Air 01/05/18 06:12 77 18 99 Room Air 21 01/05/18 06:04 69 18 96 Nasal Cannula 2.0 32 01/05/18 04:00 70 01/05/18 04:00 97.8 71 21 133/73 (93) 98 01/05/18 04:00 Nasal Cannula 3.0 01/05/18 04:00 3.0 01/05/18 00:10 75 18 100 Nasal Cannula 2.0 28 01/05/18 00:00 98.2 83 21 119/66 (83) 98 01/05/18 00:00 Nasal Cannula 3.0 01/05/18 00:00 3.0 01/05/18 00:00 77 01/04/18 23:57 75 18 98 Nasal Cannula 2.0 32 01/04/18 21:04 138/61 01/04/18 21:04 80 138/61 01/04/18 20:39 80 18 99 Nasal Cannula 2.0 28 01/04/18 20:34 96 Nasal Cannula 3.0 32 01/04/18 20:34 Nasal Cannula 3.0 32 01/04/18 20:32 82 18 95 Nasal Cannula 2.0 28 01/04/18 20:00 Nasal Cannula 3.0 01/04/18 20:00 86 01/04/18 20:00 98.1 81 21 138/61 (86) 98 01/04/18 20:00 3.0 01/04/18 18:00 3.0 01/04/18 16:00 Room Air 01/04/18 16:00 98.0 85 21 155/79 (104) 98 01/04/18 15:23 83 01/04/18 15:04 85 20 100 Nasal Cannula 2.0 28 01/04/18 14:56 80 20 96 Nasal Cannula 2.0 28 01/04/18 12:00 3.0 01/04/18 12:00 Room Air 01/04/18 12:00 99.0 83 21 140/77 (98) 98 01/04/18 11:49 81 01/04/18 11:08 83 22 100 Nasal Cannula 3.0 32 01/04/18 11:00 82 22 96 Nasal Cannula 3.0 32 Intake and Output 01/04/18 01/05/18 19:00 07:00 Intake Total 3500 ml 120 ml Output Total 150 ml 200 ml Balance 3350 ml -80 ml Intake Oral 120 ml Hemodialysis 3500 ml Output Urine Total 150 ml 200 ml # Bowel Movements 7 General Appearance: WD/WN HEENT: atraumatic, anicteric Respiratory/Chest: rhonchi Cardiovascular: normal rate, regular rhythm Abdomen: normal bowel sounds, no organomegaly Skin: no rash, no lesions Neurologic/Psychiatric: unresponsiveness Laboratory Tests 01/04/18 18:30: Troponin I 0.311H 01/05/18 04:10: Troponin I 0.320H, White Blood Count 7.9, Red Blood Count 3.46L, Hemoglobin 9.6L , Hematocrit 29.7L, Mean Corpuscular Volume 86, Mean Corpuscular Hemoglobin 27.6 , Mean Corpuscular Hemoglobin Concent 32.2, Red Cell Distribution Width 16.9H, Platelet Count 204, Mean Platelet Volume 5.5L, Neutrophils (%) (Auto) 53.1, Lymphocytes (%) (Auto) 28.8, Monocytes (%) (Auto) 15.0H, Eosinophils (%) (Auto) 1.6, Basophils (%) (Auto) 1.4, Prothrombin Time 16.7H, Prothromb Time International Ratio 1.6H, Sodium Level 137, Potassium Level 3.5, Chloride Level 101, Carbon Dioxide Level 23, Anion Gap 13, Blood Urea Nitrogen 48H, Creatinine 6.6H, Estimat Glomerular Filtration Rate 10.3, Glucose Level 114#H, Calcium Level 7.6L Current Medications Medications (Trade) Dose Ordered Sig/Monica Route PRN Reason Start Time Stop Time Status Last Admin Dose Admin Acetaminophen (Tylenol) 650 mg Q4H PRN ORAL Mild Pain (Pain Scale 1-3) 01/03/18 20:45 02/02/18 20:44 Acetaminophen (Tylenol) 650 mg Q4H PRN ORAL fever 01/03/18 20:45 02/02/18 20:44 Albuterol/ Ipratropium (Albuterol/ Ipratropium) 3 ml Q4HRT HHN 01/03/18 23:00 01/08/18 22:59 01/05/18 07:00 Amlodipine Besylate (Norvasc) 5 mg DAILY ORAL 01/04/18 09:00 02/03/18 08:59 01/05/18 08:33 Aspirin (ASA) 81 mg DAILY ORAL 01/03/18 20:45 02/02/18 20:44 01/05/18 08:32 Atorvastatin Calcium (Lipitor) 20 mg BEDTIME ORAL 01/03/18 21:00 02/02/18 20:59 01/04/18 21:04 Budesonide/ Formoterol Fumarate (Symbicort 160/ 4.5) 2 puff DAILY PRN INH Shortness of Breath 01/03/18 20:45 02/02/18 20:44 Carvedilol (Coreg) 6.25 mg EVERY 12 HOURS ORAL 01/03/18 21:00 02/02/18 20:59 01/04/18 21:04 Clonidine HCl (Catapres Tab) 0.1 mg Q4H PRN ORAL For High Blood Pressure 01/03/18 20:45 02/02/18 20:44 Dextrose (Dextrose 50%) 25 ml Q30M PRN IV Hypoglycemia 01/03/18 20:45 02/02/18 20:44 Dextrose (Dextrose 50%) 50 ml Q30M PRN IV Hypoglycemia 01/03/18 20:45 02/02/18 20:44 Doxycycline Monohydrate (Vibramycin) 100 mg EVERY 12 HOURS ORAL 01/03/18 21:00 01/10/18 20:59 01/05/18 08:32 Furosemide (Lasix) 80 mg TWICE A DAY ORAL 01/03/18 20:45 02/02/18 20:44 01/05/18 08:33 Heparin Sodium (Porcine) (Heparin 5000 units/ml) 5,000 units EVERY 12 HOURS SUBQ 01/03/18 21:00 02/02/18 20:59 01/05/18 08:37 Heparin Sodium (Porcine) (Heparin Sod 1000 units/ml 10ml) 500 unit ONCE PRN IV FOR HD USE ONLY 01/05/18 10:15 01/05/18 23:00 Heparin Sodium (Porcine) (Heparin Sod 1000 units/ml 10ml) 2,000 unit ONCE PRN IV FOR HD USE ONLY 01/05/18 10:15 01/05/18 23:00 Insulin Aspart (NovoLOG) BEFORE MEALS AND HS SUBQ 01/03/18 21:00 02/02/18 20:59 01/04/18 21:02 Insulin Aspart (NovoLOG) 14 units NOVOTIAC SUBQ 01/04/18 16:50 02/03/18 16:49 01/04/18 16:18 Insulin Detemir (Levemir) 28 units BEDTIME SUBQ 01/04/18 21:00 02/03/18 20:59 01/04/18 21:03 Isosorbide Mononitrate (Imdur) 30 mg QHS ORAL 01/04/18 21:00 02/03/18 20:59 01/04/18 21:04 Levothyroxine Sodium (Synthroid) 25 mcg ACBREAKFAST ORAL 01/04/18 06:30 02/03/18 06:29 01/05/18 06:15 Losartan Potassium (Cozaar) 100 mg DAILY ORAL 01/04/18 09:00 02/03/18 08:59 01/05/18 08:32 Nitroglycerin (Ntg) 0.4 mg Q5M PRN SL Prn Chest Pain 01/03/18 20:45 02/02/18 20:44 Ondansetron HCl (Zofran) 4 mg Q6H PRN IVP Nausea & Vomiting 01/03/18 20:45 02/02/18 20:44 Polyethylene Glycol (Miralax) 17 gm DAILYPRN PRN ORAL Constipation 01/03/18 20:45 02/02/18 20:44 Sevelamer Carbonate (Renvela) 4,000 mg THREE TIMES A DAY ORAL 01/04/18 09:00 02/03/18 08:59 01/05/18 08:32 Sodium Chloride 1,000 ml @ 500 mls/hr Q2H PRN IVLG sbp<90 during hd 01/05/18 06:00 01/05/18 23:00 Fawn Lam DO Jan 05, 2018 10:40
[2018-01-05 12:00] VITALS: BP 154/78
[2018-01-05] MEDS ORDERED: Warfarin Sodium 2.5mg ORAL ONE (12:30)
[2018-01-05 15:28] VITALS: BP 137/71
--- NOTE | 2018-01-05 18:00 | Discharge Summary ---
DATE OF ADMISSION: 01/03/2018 DATE OF DISCHARGE: 01/05/2018 PERTINENT HISTORY: The patient is a 67-year-old man with end-stage renal disease, on dialysis, insulin-dependent diabetes, hypertension, congestive heart failure, and asthma, who presents with increasing shortness of breath. He is found to have congestive heart failure on imaging and an elevated BNP and was placed on BiPAP in the emergency room and had emergency dialysis on admission. PERTINENT PHYSICAL FINDINGS: LUNGS: Faint wheezes. HEART: Regular rhythm. No murmur. ABDOMEN: Soft without organomegaly. EXTREMITIES: Show 1+ edema. COURSE IN THE HOSPITAL: The patient had serial dialysis with fluid removal. He is maintained on a monitor and stayed in sinus rhythm. The patient had nebulizer treatment for his asthma. He was much improved with the above treatment and had a large amount of fluid removed on dialysis. He did have a borderline elevation of troponin of 0.328, 0.311, and 0.320 likely from diastolic dysfunction, congestive heart failure, and end-stage renal disease. I discussed this with the patient and his . An outpatient stress testing could be done at a later date. He had no chest pain. On the day of discharge, the patient felt much improved. Lungs showed few faint wheeze. No distress. Heart, regular rhythm. Abdomen, soft. Extremities showed trace edema. He had a normal oxygen saturation on room air and was no longer dyspneic and he was discharged home in improved condition. FINAL DIAGNOSES: 1. Congestive heart failure acute on chronic with diastolic dysfunction. 2. Elevated troponin likely from end-stage renal disease and perhaps also from mild ischemia or demand ischemia. 3. Hypertensive heart disease. 4. Asthma exacerbation. 5. End-stage renal disease. 6. Status post missed outpatient dialysis treatment. 7. Insulin-dependent diabetes. DISCHARGE DISPOSITION: Home on a diabetic renal diet. MEDICATIONS: Per the discharge medication list. FOLLOWUP: Follow up by Dr. Tidwell in dialysis and by his primary care physician. He is not on staff in this hospital. Smith Tidwell M.D. DR: MASON JOB#: [id number] CC:
== END 2018-01-05 17:50 | disposition home or self-care (01) | DRG 291 ==
LOC: EMR 16:06 → EDBEDREQ 18:02 → 2W 18:39 → EDBEDREQSVC 18:44 → EDBEDREQ 20:12 → 2W 01-04 05:03
PROC: 5A09357 Assistance with Respiratory Ventilation, Less than 24 Consecutive Hours, Continuous Positive Airway Pressure (ICD-10-PCS; principal; 2018-01-03)
PROC: 5A1D70Z Performance of Urinary Filtration, Intermittent, Less than 6 Hours Per Day (ICD-10-PCS; principal; 2018-01-03)
DX: I13.2 Hypertensive heart and chronic kidney disease with heart failure and with stage 5 chronic kidney disease, or end stage renal disease (principal); N18.6 End stage renal disease; I50.33 Acute on chronic diastolic (congestive) heart failure; J45.901 Unspecified asthma with (acute) exacerbation; E11.22 Type 2 diabetes mellitus with diabetic chronic kidney disease; Z99.2 Dependence on renal dialysis; Z79.4 Long term (current) use of insulin; E78.5 Hyperlipidemia, unspecified; Z86.718 Personal history of other venous thrombosis and embolism; E03.9 Hypothyroidism, unspecified; I48.0 Paroxysmal atrial fibrillation; Z79.01 Long term (current) use of anticoagulants; I37.1 Nonrheumatic pulmonary valve insufficiency
CPT/HCPCS: 36415; 71045; 80048; 80053; 80061; 82962; 83880; 84443; 84484; 85025; 85610; 87081; 93005; 93306; 93970; 94640; 94660; 94760; 96374; 99285; J1815; J7620; S5561

== ENCOUNTER 2018-05-07 00:02 | Emergency (ER) | payer OTHER, MEDICARE ==
[~2018-05-07] VITALS: Ht 175.3 cm; Wt 97.5 kg
[~2018-05-07 00:02] MED LIST changes: +AMLODIPINE BESYL5 MG ORAL; +ATORVASTATIN CA20 MG ORAL; +RENA-VITE RX T1 EAC1 PO; +RENVELA0.8 GM ORAL; +RENVELA800 MG ORAL; +SYMBICORT 16010.2 G1 IH; +VIBRAMYCIN100 MG ORAL; +WARFARIN SODIUM1 MG ORAL
[2018-05-07 00:20] VITALS: BP 112/67
--- NOTE | 2018-05-07 00:20 | NUR ---
ED Nurse Note: pt states he doesn't have to go restroom at this time, provided w/ urinal.
[2018-05-07 00:25] LABS: BASOPHILS % (AUTO) 0.7 % (0.0-2.0); EOSINOPHILS % (AUTO) 1.3 % (0.0-3.0); HEMATOCRIT 43.6 % (42.0-52.0); HEMOGLOBIN 13.9 G/DL (14.2-18.0); LYMPHOCYTES % (AUTO) 10.4 % (20.0-45.0); MEAN CORPUSCULAR VOLUME 92 FL (80-99); MONOCYTES % (AUTO) 10.2 % (1.0-10.0); NEUTROPHILS % (AUTO) 77.4 % (45.0-75.0); PLATELET COUNT 203 K/UL (150-450); RED BLOOD COUNT 4.75 M/UL (4.70-6.10); RED CELL DISTRIBUTION WIDTH 16.9 % (11.6-14.8); WHITE BLOOD COUNT 9.9 K/UL (4.8-10.8)
[2018-05-07 00:51] LABS: ALANINE AMINOTRANSFERASE 21 U/L (12-78); ALBUMIN 3.7 G/DL (3.4-5.0); ALBUMIN/GLOBULIN RATIO 0.8 (1.0-2.7); ALKALINE PHOSPHATASE 101 U/L (46-116); ANION GAP 11 mmol/L (5-15); ASPARTATE AMINO TRANSFERASE 28 U/L (15-37); BILIRUBIN,TOTAL 0.3 MG/DL (0.2-1.0); BLOOD UREA NITROGEN 29 mg/dL (7-18); CALCIUM 7.5 MG/DL (8.5-10.1); CARBON DIOXIDE 32 MMOL/L (21-32); CHLORIDE 99 MMOL/L (98-107); CKMB 2.8 NG/ML (0.0-3.6); CREATINE KINASE 172 U/L (26-308); CREATININE 5.4 MG/DL (0.55-1.30); SODIUM 140 MMOL/L (136-145)
[2018-05-07 00:54] LABS: POTASSIUM 2.5 MMOL/L (3.5-5.1)
[2018-05-07 01:20] VITALS: BP 119/58
--- NOTE | 2018-05-07 01:35 | NUR ---
ED Nurse per ERMD order, pt provided with sandwich and juice, pt tolerated well.
--- NOTE | 2018-05-07 01:37 | NUR ---
ED Nurse Note: ERMD notified bedside accucheck 107.
--- NOTE | 2018-05-07 01:50 | NUR ---
ED Nurse Note: ERMD aware pt's potassium level.
--- NOTE | 2018-05-07 01:52 | Emergency Room Report ---
History of Present Illness General Chief Complaint: Abnormal Labs Source: Patient Present Illness HPI Patient presents with complaints of low blood glucose Patient was found unresponsive by paramedics summoned Patient was given glucose in the field and did have more response Patient reports that he feels tired and sluggish denies any chest pain he does have mild cough denies any back or flank pain denies any vomiting Patient gets dialysis Sunday and reports having is full dialysis today Reports that this happened to him about 3 weeks ago as well Allergies: Coded Allergies: No Known Allergies (Unverified , 11/14/16) Patient History Past Medical History: see triage record Pertinent Family History: none Reviewed Nursing Documentation: PMH: Agreed; PSxH: Agreed Nursing Documentation-PMH Past Medical History: No History, Except For Hx Cardiac Problems: Yes - lung infection, portion of pancreas removed Hx Hypertension: Yes Hx Asthma: Yes Hx Diabetes: Yes Hx Cancer: No Hx Gastrointestinal Problems: Yes Hx Dialysis: Yes - LUE graft/port; Dialysis M, W, F Hx Neurological Problems: No Review of Systems All Other Systems: negative except mentioned in HPI Physical Exam Vital Signs Date Time Temp Pulse Resp B/P (MAP) Pulse Ox O2 Delivery O2 Flow Rate FiO2 05/07/18 00:02 98.2 76 18 169/83 97 Room Air Sp02 EP Interpretation: reviewed, normal General Appearance: no apparent distress Head: normocephalic, atraumatic Eyes: bilateral eye PERRL, bilateral eye EOMI ENT: hearing grossly normal, dry mucus membranes Neck: supple, no meningismus Respiratory: no retraction, no accessory muscle use, crackles - Bilaterally Cardiovascular #1: regular rate, rhythm Gastrointestinal: non tender, soft Musculoskeletal: other - Right [id number] amputation Neurologic: alert, oriented x3, responsive Skin: other - Mild edema diffusely Lymphatic: no adenopathy Procedures Critical Care Time Critical Care Time 65 minutes for multiple re-evaluations, critical presentation, repeat hypoglycemic episodes requiring repeat examination and intervention not including any positional time Medical Decision Making Diagnostic Impression: Primary Impression: Hypoglycemia Additional Impressions: CHF exacerbation End-stage renal disease Hypokalemia ER Course Patient is a fairly complex patient with multiple differential to consideration including but not limited to cardiac cardiopulmonary and vascular emergencies Patient's glucose level remains low consistently It is staying at approximately 100 however with multiple doses of glucose along with oral feeding Patient's x-ray shows some congestive findings as well Diuretics are provided patient also provided with potassium And patient requiring further inpatient care Labs Test 05/07/18 00:10 White Blood Count 9.9 K/UL (4.8-10.8) Red Blood Count 4.75 M/UL (4.70-6.10) Hemoglobin 13.9 G/DL (14.2-18.0) Hematocrit 43.6 % (42.0-52.0) Mean Corpuscular Volume 92 FL (80-99) Mean Corpuscular Hemoglobin 29.2 PG (27.0-31.0) Mean Corpuscular Hemoglobin Concent 31.8 G/DL (32.0-36.0) Red Cell Distribution Width 16.9 % (11.6-14.8) Platelet Count 203 K/UL (150-450) Mean Platelet Volume 5.5 FL (6.5-10.1) Neutrophils (%) (Auto) 77.4 % (45.0-75.0) Lymphocytes (%) (Auto) 10.4 % (20.0-45.0) Monocytes (%) (Auto) 10.2 % (1.0-10.0) Eosinophils (%) (Auto) 1.3 % (0.0-3.0) Basophils (%) (Auto) 0.7 % (0.0-2.0) Sodium Level 140 MMOL/L (136-145) Potassium Level 2.5 MMOL/L (3.5-5.1) Chloride Level 99 MMOL/L (98-107) Carbon Dioxide Level 32 MMOL/L (21-32) Anion Gap 11 mmol/L (5-15) Blood Urea Nitrogen 29 mg/dL (7-18) Creatinine 5.4 MG/DL (0.55-1.30) Estimat Glomerular Filtration Rate 12.8 mL/min (>60) Glucose Level 128 MG/DL (74-106) Calcium Level 7.5 MG/DL (8.5-10.1) Total Bilirubin 0.3 MG/DL (0.2-1.0) Aspartate Amino Transf (AST/SGOT) 28 U/L (15-37) Alanine Aminotransferase (ALT/SGPT) 21 U/L (12-78) Alkaline Phosphatase 101 U/L (46-116) Total Creatine Kinase 172 U/L (26-308) Creatine Kinase MB 2.8 NG/ML (0.0-3.6) Creatine Kinase MB Relative Index 1.6 Troponin I 0.038 ng/mL (0.000-0.056) Total Protein 8.3 G/DL (6.4-8.2) Albumin 3.7 G/DL (3.4-5.0) Globulin 4.6 g/dL Albumin/Globulin Ratio 0.8 (1.0-2.7) Rhythm Strip Diag. Results EP Interpretation: yes Rate: 66 Rhythm: NSR, no PVC's, no ectopy Chest X-Ray Diagnostic Results Chest X-Ray Diagnostic Results : Chest X-Ray Ordered: Yes # of Views/Limited/Complete: 1 View Indication: Chest Pain EP Interpretation: Yes Interpretation: no consolidation, no effusion, no pneumothorax, other - Cardiomegaly, pulmonary congestion Impression: Other - Cardiomegaly, pulmonary congestion Electronically Signed by: Payton Luther DO Last Vital Signs Date Time Temp Pulse Resp B/P (MAP) Pulse Ox O2 Delivery O2 Flow Rate FiO2 05/07/18 00:20 76 18 Room Air 05/07/18 00:20 98.2 112/67 97 Status: improved Disposition: XFER SHT-TRM HOSP Condition: Serious Payton Luther DO May 07, 2018 01:52
[2018-05-07] MEDS ORDERED: Albuterol ud Inhalation HHN ONE (02:00)
[2018-05-07 02:20] VITALS: BP 138/60
--- NOTE | 2018-05-07 02:56 | NUR ---
ED Nurse Note: accucheck 111. ermd notified.
[2018-05-07] MEDS ORDERED: D5 1/2NS 1,000 ML IV SCH (03:00)
[2018-05-07 03:20] VITALS: BP 116/52
--- NOTE | 2018-05-07 04:30 | NUR ---
ED Nurse Note: pt accu check 70, ERMD notified, apple juice and cookie given to pt. pt denies any hypoglycemic sx, denies weakness, no complaints at this time.
--- NOTE | 2018-05-07 05:05 | NUR ---
ED Nurse Note: no d50 in pyxis noted, charge nurse notified.
--- NOTE | 2018-05-07 07:17 | NUR ---
ED Nurse Note: report given to SHANI Gibbs at [facility], pending xfr, pt vss, o2 2L via NC, will cont monitor.
--- NOTE | 2018-05-07 07:21 | NUR ---
HANDOFF: REPORT GIVEN TO SHANI INMAN, PENDING XFR.
--- NOTE | 2018-05-07 07:27 | NUR ---
ED Nurse Note: Pt eating breakfast in [place]. No acute distress or complaints of pain noted. Pt's at the bedside. Waiting for transport to arrive. Will continue to monitor.
[2018-05-07 07:50] VITALS: BP 118/86
--- NOTE | 2018-05-07 07:50 | NUR ---
ED Nurse Note: Transport came and was at the bedside. and pt was arguing because wanted pt to go and pt did not want to go to [facility]. Since pt is A + O x4. able to make decisions for himself. Notified . Told pt that he has to sign paperwork even after explaining to pt consequences. Pt AMA form signed by pt and ERMD. Pt was given a copy. IV site removed. ID band removed. Pt was wheeled out of the ER via wheelchair to be picked up by [facility]. No acute distress noted. No complaints of pain. A + O x4. Pt left ER w/ all belongings. Pt was given weather appropriate clothes. Notified Bernie from [facility] that the pt is not coming to the hospital anymore.
--- NOTE | 2018-05-07 12:07 | Diagnostic Imaging Report ---
Indication: Dyspnea Comparison: 01/03/2018 A single view chest radiograph was obtained. Findings: Cardiomediastinal appearance is within normal limits for age. The lungs are clear. Pulmonary vascularity is appropriate. The diaphragmatic contour is smooth and costophrenic angles are sharp. No pleural effusions are identified. The bones are unremarkable. Impression: No acute findings
--- NOTE | 2018-05-07 15:35 | Cardiology Report ---
APPROVED REPORT EKG Measurement Heart [id number] Sinus rhythm with non conducted pac Right bundle branch block Abnormal ECG
== END 2018-05-07 07:50 | disposition left against medical advice (07) ==
LOC: EDBD 00:02 → EMR 02:10 → EDBEDREQ 04:32 → EMR 07:50
DX: E11.649 Type 2 diabetes mellitus with hypoglycemia without coma (principal); J45.909 Unspecified asthma, uncomplicated; E11.22 Type 2 diabetes mellitus with diabetic chronic kidney disease; I13.2 Hypertensive heart and chronic kidney disease with heart failure and with stage 5 chronic kidney disease, or end stage renal disease; N18.6 End stage renal disease; I50.9 Heart failure, unspecified; Z99.2 Dependence on renal dialysis; E87.6 Hypokalemia
CPT/HCPCS: 36415; 71045; 80053; 82550; 82553; 82962; 84484; 85025; 93005; 94640; 96365; 96366; 96375; 96376; 99291; J1940; J8499

== ENCOUNTER 2018-06-04 19:38 | Inpatient (IN) | payer OTHER, MEDICARE ==
[~2018-06-04] VITALS: Ht 172.7 cm; Wt 85.3 kg
[2018-06-04] MEDS ORDERED: Solu-MEDROL 125mg Inj IVP ONE (19:45)
--- NOTE | 2018-06-04 19:55 | Emergency Room Report ---
History of Present Illness General Chief Complaint: Dyspnea/Respdistress Source: Patient Present Illness HPI Patient presents with complaints of shortness of breath Patient was brought in by paramedics on BiPAP machine Patient's is here reports the patient has significant asthma as well Patient woke up his around 5:00 this evening short of breath There was no obvious chest pain however patient appears in acute distress denies any recent fever denies any recent focal weakness or travel patient has a right below the knee amputation as well Unknown regarding recent upper respiratory symptoms Allergies: Coded Allergies: No Known Allergies (Unverified , 11/14/16) Patient History Past Medical History: see triage record Pertinent Family History: none Reviewed Nursing Documentation: PMH: Agreed; PSxH: Agreed Nursing Documentation-PMH Past Medical History: No History, Except For Hx Cardiac Problems: Yes - lung infection, portion of pancreas removed Hx Hypertension: Yes Hx Asthma: Yes Hx Diabetes: Yes Hx Cancer: No Hx Gastrointestinal Problems: Yes Hx Dialysis: Yes - LUE graft/port; Dialysis M, W, F Hx Neurological Problems: No Review of Systems All Other Systems: negative except mentioned in HPI Physical Exam Vital Signs Date Time Temp Pulse Resp B/P (MAP) Pulse Ox O2 Delivery O2 Flow Rate FiO2 06/04/18 19:38 99 Bi-pap Sp02 EP Interpretation: reviewed, normal General Appearance: moderate distress - Short of breath Head: normocephalic, atraumatic Eyes: bilateral eye PERRL, bilateral eye EOMI ENT: hearing grossly normal, normal pharynx Neck: supple Respiratory: accessory muscle use, wheezing - Bilaterally tachypneic Cardiovascular #1: tachycardia Gastrointestinal: non tender, soft, no mass Musculoskeletal: other - Moving upper extremity equally, right [id number] amputation Neurologic: alert, oriented x3, responsive Skin: no rash Lymphatic: no adenopathy Procedures Critical Care Time Critical Care Time 70 minutes for initial critical presentation concerning for respiratory failure , multiple re-evaluations not including any procedural time Medical Decision Making Diagnostic Impression: Primary Impression: Dyspnea Additional Impressions: Respiratory distress CHF exacerbation ER Course Patient is a fairly complex patient with multiple differential to consideration including but not limited to cardiac cardiopulmonary and vascular emergencies Patient has significantly abnormal chest x-ray Blood work as well abnormal Patient provided further diuretics nitroglycerin He is doing somewhat improved however remains in critical condition Admitted to higher level of care Labs Test 06/04/18 19:45 06/04/18 20:25 06/04/18 21:56 06/05/18 03:30 White Blood Count 16.4 K/UL (4.8-10.8) 11.6 K/UL (4.8-10.8) Red Blood Count 4.11 M/UL (4.70-6.10) 3.46 M/UL (4.70-6.10) Hemoglobin 12.0 G/DL (14.2-18.0) 10.2 G/DL (14.2-18.0) Hematocrit 37.4 % (42.0-52.0) 32.7 % (42.0-52.0) Mean Corpuscular Volume 91 FL (80-99) 95 FL (80-99) Mean Corpuscular Hemoglobin 29.3 PG (27.0-31.0) 29.6 PG (27.0-31.0) Mean Corpuscular Hemoglobin Concent 32.2 G/DL (32.0-36.0) 31.3 G/DL (32.0-36.0) Red Cell Distribution Width 16.3 % (11.6-14.8) 17.3 % (11.6-14.8) Platelet Count 215 K/UL (150-450) 192 K/UL (150-450) Mean Platelet Volume 5.7 FL (6.5-10.1) 6.2 FL (6.5-10.1) Neutrophils (%) (Auto) 79.0 % (45.0-75.0) % (45.0-75.0) Lymphocytes (%) (Auto) 11.0 % (20.0-45.0) % (20.0-45.0) Monocytes (%) (Auto) 8.8 % (1.0-10.0) % (1.0-10.0) Eosinophils (%) (Auto) 0.2 % (0.0-3.0) % (0.0-3.0) Basophils (%) (Auto) 1.1 % (0.0-2.0) % (0.0-2.0) Arterial Blood pH 7.315 (7.350-7.450) Arterial Blood Partial Pressure CO2 43.1 mmHg (35.0-45.0) Arterial Blood Partial Pressure O2 68.2 mmHg (75.0-100.0) Arterial Blood HCO3 21.5 mmol/L (22.0-26.0) Arterial Blood Oxygen Saturation 89.5 % (95-100) Arterial Blood Base Excess -4.5 (-2-2) Doe Test Positive Sodium Level 137 MMOL/L (136-145) 135 MMOL/L (136-145) Potassium Level 4.1 MMOL/L (3.5-5.1) 4.6 MMOL/L (3.5-5.1) Chloride Level 97 MMOL/L (98-107) 96 MMOL/L (98-107) Carbon Dioxide Level 24 MMOL/L (21-32) 20 MMOL/L (21-32) Anion Gap 17 mmol/L (5-15) 19 mmol/L (5-15) Blood Urea Nitrogen 53 mg/dL (7-18) 62 mg/dL (7-18) Creatinine 5.6 MG/DL (0.55-1.30) 6.3 MG/DL (0.55-1.30) Estimat Glomerular Filtration Rate 12.4 mL/min (>60) 10.8 mL/min (>60) Glucose Level 466 MG/DL (74-106) 608 MG/DL (74-106) Calcium Level 7.1 MG/DL (8.5-10.1) 6.5 MG/DL (8.5-10.1) Total Bilirubin 0.7 MG/DL (0.2-1.0) 0.6 MG/DL (0.2-1.0) Aspartate Amino Transf (AST/SGOT) 29 U/L (15-37) 22 U/L (15-37) Alanine Aminotransferase (ALT/SGPT) 27 U/L (12-78) 22 U/L (12-78) Alkaline Phosphatase 144 U/L (46-116) 130 U/L (46-116) Total Creatine Kinase 190 U/L (26-308) Creatine Kinase MB 2.6 NG/ML (0.0-3.6) Creatine Kinase MB Relative Index 1.3 Troponin I 0.068 ng/mL (0.000-0.056) Pro-B-Type Natriuretic Peptide 77769 pg/mL (0-125) Total Protein 8.6 G/DL (6.4-8.2) 7.6 G/DL (6.4-8.2) Albumin 3.6 G/DL (3.4-5.0) 3.0 G/DL (3.4-5.0) Globulin 5.0 g/dL 4.6 g/dL Albumin/Globulin Ratio 0.7 (1.0-2.7) 0.7 (1.0-2.7) Lipase 36 U/L (73-393) Prothrombin Time 17.1 SEC (9.30-11.50) 19.4 SEC (9.30-11.50) Prothromb Time International Ratio 1.7 (0.9-1.1) 1.9 (0.9-1.1) Activated Partial Thromboplast Time 49 SEC (23-33) Urine Color Pale yellow Urine Appearance Clear Urine pH 6.5 (4.5-8.0) Urine Specific [place] 1.015 (1.005-1.035) Urine Protein 4+ (NEGATIVE) Urine Glucose (UA) 4+ (NEGATIVE) Urine Ketones 1+ (NEGATIVE) Urine Blood 3+ (NEGATIVE) Urine Nitrite Negative (NEGATIVE) Urine Bilirubin Negative (NEGATIVE) Urine Urobilinogen Normal MG/DL (0.0-1.0) Urine Leukocyte Esterase Negative (NEGATIVE) Urine RBC 5-10 /HPF (0 - 0) Urine WBC 2-4 /HPF (0 - 0) Urine Squamous Epithelial Cells None /LPF (NONE/OCC) Urine Bacteria Few /HPF (NONE) Urine Opiates Screen Negative (NEGATIVE) Urine Barbiturates Screen Negative (NEGATIVE) Phencyclidine (PCP) Screen Negative (NEGATIVE) Urine Amphetamines Screen Negative (NEGATIVE) Urine Benzodiazepines Screen Negative (NEGATIVE) Urine Cocaine Screen Negative (NEGATIVE) Urine Marijuana (THC) Screen Negative (NEGATIVE) Triglycerides Level 101 MG/DL (30-150) Cholesterol Level 131 MG/DL (< 200) LDL Cholesterol 70 mg/dL (<100) HDL Cholesterol 37 MG/DL (40-60) Cholesterol/HDL Ratio 3.5 (3.3-4.4) Thyroid Stimulating Hormone (TSH) 1.131 uiU/mL (0.358-3.740) Rhythm Strip Diag. Results EP Interpretation: yes Rate: 89 Rhythm: NSR, no PVC's, other - Nonspecific ST changes prolonged QRS Chest X-Ray Diagnostic Results Chest X-Ray Diagnostic Results : Chest X-Ray Ordered: Yes # of Views/Limited/Complete: 1 View Indication: Shortness of Breath EP Interpretation: Yes Interpretation: no effusion, no pneumothorax, other - Pulmonary edema, bilateral patchy markings Impression: Other - Bilateral pulmonary congestion cardiomegaly, patchy markings bilaterally Electronically Signed by: Payton Luther DO Last Vital Signs Date Time Temp Pulse Resp B/P (MAP) Pulse Ox O2 Delivery O2 Flow Rate FiO2 06/04/18 19:38 99 Bi-pap Status: improved Disposition: ADMITTED INPATIENT Condition: Critical Payton Luther DO Jun 04, 2018 19:55
[2018-06-04 19:58] VITALS: BP 147/64
[2018-06-04] MEDS: Ipratropium 0.02% Inh Soln 2.5ml UD HHN SCH ×3 (20:26→20:47)
[2018-06-04] MEDS: Albuterol ud Inhalation HHN SCH ×3 (20:26→20:47)
[2018-06-04] MEDS ORDERED: Piperacillin/Tazobactam 3.375 GM in NS 110 ML IVPB ONE (20:30)
[2018-06-04 20:41] LABS: BASOPHILS % (AUTO) 1.1 % (0.0-2.0); EOSINOPHILS % (AUTO) 0.2 % (0.0-3.0); HEMATOCRIT 37.4 % (42.0-52.0); MEAN CORPUSCULAR VOLUME 91 FL (80-99); MONOCYTES % (AUTO) 8.8 % (1.0-10.0); PLATELET COUNT 215 K/UL (150-450); RED BLOOD COUNT 4.11 M/UL (4.70-6.10); RED CELL DISTRIBUTION WIDTH 16.3 % (11.6-14.8); WHITE BLOOD COUNT 16.4 K/UL (4.8-10.8)
[2018-06-04 20:48] LABS: ANION GAP 17 mmol/L (5-15); BLOOD UREA NITROGEN 53 mg/dL (7-18); CALCIUM 7.1 MG/DL (8.5-10.1); CARBON DIOXIDE 24 MMOL/L (21-32); CHLORIDE 97 MMOL/L (98-107); CREATININE 5.6 MG/DL (0.55-1.30); POTASSIUM 4.1 MMOL/L (3.5-5.1); SODIUM 137 MMOL/L (136-145)
[2018-06-04 21:00] LABS: ALANINE AMINOTRANSFERASE 27 U/L (12-78); ALBUMIN 3.6 G/DL (3.4-5.0); ALBUMIN/GLOBULIN RATIO 0.7 (1.0-2.7); ALKALINE PHOSPHATASE 144 U/L (46-116); ASPARTATE AMINO TRANSFERASE 29 U/L (15-37); BILIRUBIN,TOTAL 0.7 MG/DL (0.2-1.0); CKMB 2.6 NG/ML (0.0-3.6); CREATINE KINASE 190 U/L (26-308)
[2018-06-04 21:04] LABS: INR 1.7 (0.9-1.1)
[2018-06-04] MEDS ORDERED: Nitroglycerin 2% oint pkt TOPIC ONE (21:15)
[2018-06-04 22:04] VITALS: BP 147/73
[2018-06-04 22:25] LABS: APPEARANCE,URINE CLEAR; BILIRUBIN, URINE NEGATIVE (NEGATIVE); COLOR,URINE PALE YELLOW; GLUCOSE, URINE (UA) 4+ (NEGATIVE); KETONES,URINE 1+ (NEGATIVE); LEUKOCYTE ESTERASE ,URINE NEGATIVE (NEGATIVE); NITRITE,URINE NEGATIVE (NEGATIVE); PH,URINE 6.5 (4.5-8.0); PROTEIN,URINE 4+ (NEGATIVE); UROBILINOGEN,URINE NORMAL MG/DL (0.0-1.0)
[2018-06-04] MEDS ORDERED: Carvedilol 6.25mg Tab ORAL SCH (23:45)
[2018-06-05] VITALS: BP 132/76
[2018-06-05] MEDS ORDERED: Albuterol/Ipratropium 3ml neb HHN PRN (02:15)
[2018-06-05 04:00] VITALS: BP 145/78
[2018-06-05 04:11] LABS: HEMATOCRIT 32.7 % (42.0-52.0); HEMOGLOBIN 10.2 G/DL (14.2-18.0); MEAN CORPUSCULAR VOLUME 95 FL (80-99); PLATELET COUNT 192 K/UL (150-450); RED BLOOD COUNT 3.46 M/UL (4.70-6.10); RED CELL DISTRIBUTION WIDTH 17.3 % (11.6-14.8); WHITE BLOOD COUNT 11.6 K/UL (4.8-10.8)
[2018-06-05 04:20] LABS: INR 1.9 (0.9-1.1)
[2018-06-05 04:46] LABS: ALANINE AMINOTRANSFERASE 22 U/L (12-78); ALBUMIN/GLOBULIN RATIO 0.7 (1.0-2.7); ALKALINE PHOSPHATASE 130 U/L (46-116); ANION GAP 19 mmol/L (5-15); ASPARTATE AMINO TRANSFERASE 22 U/L (15-37); BILIRUBIN,TOTAL 0.6 MG/DL (0.2-1.0); BLOOD UREA NITROGEN 62 mg/dL (7-18); CALCIUM 6.5 MG/DL (8.5-10.1); CARBON DIOXIDE 20 MMOL/L (21-32); CHLORIDE 96 MMOL/L (98-107); CHOLESTEROL 131 MG/DL (< 200); CREATININE 6.3 MG/DL (0.55-1.30); HDL CHOLESTEROL 37 MG/DL (40-60); POTASSIUM 4.6 MMOL/L (3.5-5.1); SODIUM 135 MMOL/L (136-145); TRIGLYCERIDES 101 MG/DL (30-150)
[2018-06-05] MEDS ORDERED: Levothyroxine 25mcg tab ORAL SCH (06:30)
[2018-06-05] MEDS ORDERED: NovoLOG Insulin Flexpen SUBQ SCH ×3 (06:30)
[2018-06-05] MEDS ORDERED: HYDRALAZINE HCL50 MG ORAL (07:37)
[2018-06-05 08:00] VITALS: BP 136/72
[2018-06-05] MEDS ORDERED: HydrALAZINE 50mg tab ORAL SCH ×3 (08:00→12:00)
[2018-06-05] MEDS ORDERED: Sodium Bicarbonate 50ml Carp IV SCH (08:00)
[2018-06-05] MEDS: Carvedilol 6.25mg Tab ORAL SCH ×2 (08:54→20:26)
[2018-06-05] MEDS ORDERED: Azithromycin 250mg tab ORAL SCH (09:00)
[2018-06-05] MEDS: Pancrease Cap ORAL SCH ×3 (09:09→17:31)
[2018-06-05] MEDS: NovoLOG Insulin Flexpen SUBQ SCH ×6 (09:11→23:30)
[2018-06-05] MEDS: Calcium Gluconate 1gm/10ml vial IVP SCH ×3 (09:21→11:19)
[2018-06-05] MEDS: Albuterol/Ipratropium 3ml neb HHN SCH ×4 (11:05→22:55)
--- NOTE | 2018-06-05 11:46 | Diagnostic Imaging Report ---
Indication: Dyspnea Technique: XRAY Chest 1v Comparison: 04/09/2018 Findings: There is cardiomegaly. Mediastinal contours appear sharp. There is a interstitial and patchy airspace opacities. No pneumothorax. No acute osseous abnormality. IMPRESSION: Cardiomegaly with interstitial and bilateral airspace opacities which may be related to CHF/pulmonary edema. Superimposed pneumonia needs to be excluded clinically. Clinical correlation and follow-up recommended.
[2018-06-05 12:00] VITALS: BP 142/77
[2018-06-05] MEDS: HydrALAZINE 50mg tab ORAL SCH ×3 (12:00→23:24)
--- NOTE | 2018-06-05 12:12 | History & Physical ---
History and Physical History & Physicial HISTORY OF PRESENT ILLNESS: The patient is a 68-year-old man who was admitted with resp distress. He has a longstanding asthma and felt that he had a resp infection for a few weeks. He did not improve with abx. He developed respiratory distress, prompting his visit to the emergency department by EMS. He was found to have pulmonary edema and respiratory failure and was placed on BiPAP. PAST MEDICAL HISTORY: Includes renal failure, on dialysis, longstanding asthma, hypertension, hyperlipidemia, deep vein thrombosis, diabetes, hypothyroidism, paroxysmal atrial fibrillation. MEDICATIONS: Include Lipitor, amlodipine, Symbicort, Coreg, Lasix, insulin, thyroxine, Creon, Renvela, Micardis, vitamins, and Coumadin. ALLERGIES: None. REVIEW OF SYSTEMS: Otherwise unremarkable. SOCIAL HISTORY: He is not a smoker. He does not use alcohol to excess. PHYSICAL EXAMINATION: VITAL SIGNS: stable, no high fever. Off BiPAP. GENERAL: The patient is overweight. SKIN: Warm and dry. HEENT: Head is normocephalic. NECK: No jugular venous distention. No lymphadenopathy. CHEST: Mod wheezing. CARDIAC: Rhythm is regular, no murmur ABDOMEN: Soft and nontender. There is no liver or spleen enlargement. No mass. EXTREMITIES: No clubbing, cyanosis, or edema. R BKA. DIAGNOSTIC DATA: Chest x-ray shows pulmonary edema. IMPRESSION: 1. Acute respiratory failure. 2. Acute pulmonary edema due to volume overload from renal failure. 3. Renal failure, missed dialysis. 4. Asthma exacerbation. 5. Hypertension. 6. Hyperlipidemia. 7. DVT and paroxysmal atrial fibrillation on anticoagulation. 8. Diabetes with severe hyperglycemia PLAN: The patient will continue on current medications. He needs urgent dialysis for fluid overload. We will give DuoNeb treatments every 4 hours and continue his Symbicort. We will not give steroids at this time due to BS >600. Manish Oviedo MD Jun 05, 2018 12:12
--- NOTE | 2018-06-05 12:36 | Diagnostic Imaging Report ---
Indication: Dyspnea Technique: XRAY Chest 1v Comparison: 04/09/2018 Findings: Heart size and mediastinal contours stable. Again noted are interstitial and bilateral airspace opacities with apparent interval worsening in the right. No evidence of pneumothorax. Osseous structures stable. IMPRESSION: Cardiomegaly with interstitial and bilateral airspace opacities which may be related to CHF/pulmonary edema. Superimposed pneumonia needs to be excluded clinically. Findings appear slightly increased in the right lung compared to one day prior.
[2018-06-05 16:00] VITALS: BP 152/79
[2018-06-05] MEDS ORDERED: Warfarin Sodium 1mg ORAL SCH (17:00)
[2018-06-05 20:00] VITALS: BP 154/79
[2018-06-05] MEDS ORDERED: Levemir Flexpen SUBQ SCH (21:00)
[2018-06-05] MEDS ORDERED: Atorvastatin 20mg tab ORAL SCH (21:00)
--- NOTE | 2018-06-05 22:00 | Consultation ---
DATE OF CONSULTATION: 06/05/2018 NEPHROLOGY CONSULTATION CONSULTING PHYSICIAN: Smith Tidwell M.D. REFERRING PHYSICIAN: Manish Oviedo M.D. REASON FOR CONSULTATION: End-stage renal disease, hyperkalemia, and congestive heart failure. HISTORY OF PRESENT ILLNESS: The patient presents with severe shortness of breath. He was placed on BiPAP and admitted to the hospital. He had hyperkalemia and evidence of pulmonary edema on chest x-ray. He has had prior episodes of pulmonary edema. He also has severe hyperglycemia. He has a history of insulin-dependent diabetes, congestive heart failure, hypertension, poorly controlled, Charcot joints, and recent right below-knee amputation. He had diabetes since 1990. PAST SURGERIES: Removal of half of the pancreas, several toe amputations on the legs, eye surgery for retinal detachment, laser treatment for diabetic retinopathy, dialysis fistula, left arm, dialysis PermCath, and right below-knee amputation. CURRENT MEDICATIONS: Include long-acting insulin possibly 70/30, 28 units in the evening and sliding scale, Telmisartan 1 tablet daily, vitamins 1 daily, Auryxia 3 tablets each meal, Tums 2 tablets each meal, levothyroxine 1 tablet daily, amlodipine 5 mg daily, carvedilol 6.25 mg b.i.d., and atorvastatin 20 mg daily. He was taking a medicine called [employer], not sure which dose he is taking. HABITS: He is a nonsmoker and nondrinker. No use of illicit drugs. 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 His is a nurse. SYSTEM REVIEW: HEENT: There is diabetic retinopathy with stable vision. Hearing is good. ENDOCRINE: Long-standing diabetes. Not always well controlled. History of obesity and history of hypothyroidism. PULMONARY: History of asthma. He has inhalers and nebulizer p.r.n. CARDIAC: Severe hypertension. No definite NC, but he has had elevated troponins on a prior admission. He has had amiodarone in the past for atrial fibrillation. GASTROINTESTINAL: No prior gastrointestinal bleeding. No recent abdominal pain. GENITOURINARY: He makes a little urine. NEUROLOGIC: No CVA or seizures. Diabetic neuropathy. MUSCULOSKELETAL: He has had Charcot joints of the feet. PHYSICAL EXAMINATION: GENERAL: The patient is an alert man, currently in no acute distress. VITAL SIGNS: Temperature 98, pulse 91, respirations 20, and blood pressure 152/79. HEENT: Sclerae are nonicteric. Ocular motion intact in all directions. Oral mucosa moist. NECK: No adenopathy. LUNGS: Bilateral wheezing. No distress. HEART: Regular rate and rhythm. I hear no murmur. ABDOMEN: Obese and soft without organomegaly. EXTREMITIES: Show 1+ edema. AV fistula in the left arm. He has a right below-knee amputation. NEUROLOGIC: He is alert and oriented. Cranial nerves are intact. PERTINENT LABORATORY DATA: White count 16.4, repeat 11.6, and hemoglobin is 10.2. Potassium was high, I believe over 6 yesterday, but that was a verbal report and the report in the chart is 4.6 with a BUN 62 and creatinine is 6.3. Glucose 608. The troponin 0.068. BNP 13,311. Albumin is 3. IMPRESSION: 1. End-stage renal disease. 2. Congestive heart failure, acute on chronic. 3. Borderline troponin elevation. 4. Diabetes with hyperglycemia. 5. Severe hypertension. 6. Possible underlying ischemic heart disease. 7. Recent below-knee amputation. PLAN: 1. The patient had serial dialysis for fluid removal. 2. Watch him closely for his multiple medical problems. 3. I have increased the sliding scale insulin to every 3 hours until blood sugar is better and then resume long-acting insulin. 4. Medicines reviewed for end-stage renal disease. 5. Case is discussed with Dr. Manish Oviedo. Smith Tidwell M.D. DR: MASON JOB#: [id number] CC:
[2018-06-06] VITALS: BP 144/78
[2018-06-06] MEDS: NovoLOG Insulin Flexpen SUBQ SCH ×5 (02:55→15:13)
[2018-06-06] MEDS: Albuterol/Ipratropium 3ml neb HHN SCH ×4 (02:59→15:19)
[2018-06-06 04:00] VITALS: BP 134/77
[2018-06-06 05:20] LABS: INR 1.1 (0.9-1.1)
[2018-06-06 05:22] LABS: HEMATOCRIT 34.2 % (42.0-52.0); MEAN CORPUSCULAR VOLUME 91 FL (80-99); PLATELET COUNT 225 K/UL (150-450); RED BLOOD COUNT 3.78 M/UL (4.70-6.10); RED CELL DISTRIBUTION WIDTH 16.7 % (11.6-14.8); WHITE BLOOD COUNT 19.9 K/UL (4.8-10.8)
[2018-06-06 05:30] LABS: ANION GAP 21 mmol/L (5-15); BLOOD UREA NITROGEN 62 mg/dL (7-18); CALCIUM 6.1 MG/DL (8.5-10.1); CARBON DIOXIDE 19 MMOL/L (21-32); CHLORIDE 97 MMOL/L (98-107); CREATININE 6.3 MG/DL (0.55-1.30); SODIUM 137 MMOL/L (136-145)
[2018-06-06] MEDS: HydrALAZINE 50mg tab ORAL SCH ×2 (05:48→11:51)
[2018-06-06] MEDS ORDERED: Levothyroxine 25mcg tab ORAL SCH (06:30)
[2018-06-06 08:00] VITALS: BP 144/84
[2018-06-06] MEDS: Carvedilol 6.25mg Tab ORAL SCH (08:43)
[2018-06-06] MEDS: Pancrease Cap ORAL SCH ×3 (08:53→12:01)
[2018-06-06] MEDS ORDERED: Azithromycin 250mg tab ORAL SCH (09:00)
[2018-06-06] MEDS ORDERED: Losartan 50mg tab ORAL SCH (09:00)
[2018-06-06 12:00] VITALS: BP 143/77
[2018-06-06] MEDS ORDERED: Heparin Sod 1000 units/ml 10ml IV PRN (12:27)
[2018-06-06] MEDS ORDERED: LANTUS SOL100 UNIT/1 SUBQ (12:49)
--- NOTE | 2018-06-06 12:53 | Nephrology Progress Note ---
Assessment/Plan Problem List: (1) Asthma (2) Hyperglycemia (3) CHF exacerbation (4) End-stage renal disease Plan seen on dialysis , fluid removal, no distres wants to go home, glu improving Subjective Constitutional: Reports: weakness HEENT: Reports: no symptoms Genitourinary: Reports: no symptoms Neurologic/Psychiatric: Reports: no symptoms Objective Objective Last 24 Hour Vital Signs Date Time Temp Pulse Resp B/P (MAP) Pulse Ox O2 Delivery O2 Flow Rate FiO2 06/06/18 11:58 3.0 06/06/18 11:56 Nasal Cannula 3.0 06/06/18 11:09 79 16 100 Nasal Cannula 3.0 32 06/06/18 11:02 86 16 98 Bi-pap 40 06/06/18 09:06 86 26 100 Facial 40 06/06/18 09:04 Bi-pap 40 06/06/18 09:04 Bi-pap 40 06/06/18 08:00 98.9 85 22 144/84 (104) 97 06/06/18 08:00 Bi-pap 06/06/18 08:00 40 06/06/18 08:00 86 06/06/18 07:20 82 18 100 Nasal Cannula 3.0 32 06/06/18 07:12 85 18 95 Nasal Cannula 3.0 32 06/06/18 05:48 134/77 06/06/18 04:00 98.6 81 20 134/77 (96) 95 06/06/18 04:00 82 06/06/18 04:00 Nasal Cannula 3.0 06/06/18 04:00 3.0 06/06/18 03:07 83 20 100 Nasal Cannula 3.0 32 06/06/18 02:58 83 20 96 Nasal Cannula 3.0 32 06/06/18 01:06 82 27 100 Full Face 40 06/06/18 00:00 98.2 91 20 144/78 (100) 100 06/06/18 00:00 91 06/06/18 00:00 Bi-pap 40.0 06/05/18 23:24 144/78 06/05/18 23:05 90 24 100 Bi-pap 40 06/05/18 22:55 91 27 100 Full Face 40 06/05/18 22:55 91 27 100 Bi-pap 50 06/05/18 22:44 Nasal Cannula 3.0 06/05/18 21:10 98 24 98 Full Face 40 06/05/18 21:10 98 24 98 Bi-pap 40 06/05/18 21:10 98 24 98 Bi-pap 40 06/05/18 20:26 100 154/78 06/05/18 20:00 98.4 100 19 154/79 (104) 98 06/05/18 20:00 3.0 06/05/18 20:00 Nasal Cannula 3.0 06/05/18 19:24 98 06/05/18 19:22 95 22 100 Nasal Cannula 2.0 28 06/05/18 19:06 95 22 95 Nasal Cannula 3.0 32 06/05/18 17:31 152/79 06/05/18 16:18 87 22 100 Nasal Cannula 2.0 28 06/05/18 16:13 88 22 94 Nasal Cannula 2.0 28 06/05/18 16:00 98.0 91 20 152/79 (103) 95 06/05/18 16:00 3.0 06/05/18 16:00 Nasal Cannula 3.0 06/05/18 15:51 95 Intake and Output 06/05/18 06/06/18 19:00 07:00 Intake Total 538 ml Output Total 3500 ml Balance -2962 ml Intake Oral 538 ml Hemodialysis UF 3500 ml # Bowel Movements 1 Laboratory Tests 06/06/18 04:05: White Blood Count 19.9#H, Red Blood Count 3.78L, Hemoglobin 11.0L, Hematocrit 34.2L, Mean Corpuscular Volume 91, Mean Corpuscular Hemoglobin 29.1, Mean Corpuscular Hemoglobin Concent 32.2, Red Cell Distribution Width 16.7H, Platelet Count 225, Mean Platelet Volume 5.8L, Neutrophils (%) (Auto) , Lymphocytes (%) (Auto) , Monocytes (%) (Auto) , Eosinophils (%) (Auto) , Basophils (%) (Auto) , Differential Total Cells Counted 100, Neutrophils % ( Manual) 90H, Lymphocytes % (Manual) 8L, Monocytes % (Manual) 2, Eosinophils % ( Manual) 0, Basophils % (Manual) 0, Band Neutrophils 0, Platelet Estimate Adequate, Platelet Morphology Normal, Prothrombin Time 11.4, Prothromb Time International Ratio 1.1, Sodium Level 137, Potassium Level 5.0, Chloride Level 97L, Carbon Dioxide Level 19L, Anion Gap 21H, Blood Urea Nitrogen 62H, Creatinine 6.3H, Estimat Glomerular Filtration Rate 10.8, Glucose Level 581*H, Calcium Level 6.1L Height (Feet): 5 Height (Inches): 8.00 Weight (Pounds): 188 General Appearance: no apparent distress, alert EENT: normal ENT inspection Neck: normal alignment Cardiovascular: normal rate, regular rhythm Respiratory/Chest: expiratory wheezing Abdomen: non tender, soft Extremities: trace edema 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
[2018-06-06] MEDS ORDERED: Warfarin Sodium 4mg PO SCH (17:00)
[2018-06-06] MEDS ORDERED: Heparin Sod 1000 units/ml 10ml IV SCH (19:00)
--- NOTE | 2018-06-07 10:05 | Discharge Summary ---
Discharge Summary Discharge Summary _ DATE OF ADMISSION: 06/04/2018 DATE OF DISCHARGE: 06/06/2018 ADMITTING MD: Dr. Manish Oviedo DISCHARGED BY: Dr. Smith Tidwell DIRECTOR FRANCHISE SALES: Dr. Smith Tidwell BRIEF HOSPITAL COURSE: Patient is a 68-year-old male who was admitted for respiratory distress. He has a long-standing history of asthma and felt that he had respiratory infection for a few weeks. He did not improved with outpatient antibiotics. He developed respiratory distress, prompting his visit to the emergency department by EMS. He has medical history significant for end-stage renal disease on hemodialysis, asthma, hypertension, hyperlipidemia, history of DVT, diabetes, hypothyroidism and paroxysmal atrial fibrillation. On arrival to ED, patient was on BiPAP, initiated by EMS. Blood work showed elevated WBC 16. Hemoglobin and hematocrit were stable. Electrolytes were normal. BUN was elevated to 53 and creatinine 5.6. Potassium was normal. Troponin was 0.068 and proBNP 97263. Urinalysis showed 5-10 RBC, 2-4 WBC, 4+ protein, 4+ glucose, 1+ ketone, negative nitrite and negative leukocyte esterase. Urine toxicology screen was negative. Chest x-ray read by ER physician showed pulmonary edema with bilateral patchy markings, bilateral pulmonary congestion and cardiomegaly. Found in pulmonary edema and was admitted for acute respiratory failure, acute pulmonary edema due to volume overload from renal failure and asthma exacerbation. He was continued on his home medications. Patient required urgent dialysis for fluid overload. He was given nebulizer treatment. He was continued on Symbicort. Steroids was not initiated as blood sugar was elevated. He was given azithromycin. Blood glucose and fingerstick glucose reading was monitored. He was continued on Levemir and insulin sliding scale. TSH was normal. Lipid panel was acceptable. Patient underwent inpatient hemodialysis. He was saturating well on nasal cannula and in room air. Breathing improved. Patient was not in distress. Fingerstick blood glucose reading improved. He was eventually discharged home. FINAL DIAGNOSES: Acute respiratory failure due to acute pulmonary edema secondary to volume overload from renal failure End-stage renal disease, on hemodialysis, with missed hemodialysis Asthma exacerbation Diabetes mellitus with severe hyperglycemia Acute on chronic diastolic CHF exacerbation Hypertension Hyperlipidemia DVT and paroxysmal atrial fibrillation, on anticoagulation Borderline troponin elevation Recent below the knee amputation DISPOSITION: Patient was discharged home. DISCHARGE MEDICATIONS: Refer to Discharge Medication List. DISCHARGE INSTRUCTIONS: Follow up in a week. I have been assigned to complete a discharge summary on this account, I was not involved with the patient's management. Michelle Nielson NP Jun 07, 2018 10:05
--- NOTE | 2018-06-07 13:21 | Cardiology Report ---
APPROVED REPORT EKG Measurement Heart [id number] Normal sinus rhythm Possible Left atrial enlargement Right bundle branch block Abnormal ECG
== END 2018-06-06 15:50 | disposition home or self-care (01) | DRG 291 ==
LOC: EDBD 19:38 → EMR 19:46 → 2W 21:10 → EDBEDREQ 21:25
PROC: 5A09457 Assistance with Respiratory Ventilation, 24-96 Consecutive Hours, Continuous Positive Airway Pressure (ICD-10-PCS; 2018-06-04)
PROC: 5A1D70Z Performance of Urinary Filtration, Intermittent, Less than 6 Hours Per Day (ICD-10-PCS; principal; 2018-06-05)
DX: I13.2 Hypertensive heart and chronic kidney disease with heart failure and with stage 5 chronic kidney disease, or end stage renal disease (principal); I50.33 Acute on chronic diastolic (congestive) heart failure; N18.6 End stage renal disease; N17.9 Acute kidney failure, unspecified; J45.901 Unspecified asthma with (acute) exacerbation; E11.22 Type 2 diabetes mellitus with diabetic chronic kidney disease; Z99.2 Dependence on renal dialysis; Z91.15 Patient's noncompliance with renal dialysis; E11.65 Type 2 diabetes mellitus with hyperglycemia; I48.0 Paroxysmal atrial fibrillation; Z79.01 Long term (current) use of anticoagulants; E78.5 Hyperlipidemia, unspecified; Z86.718 Personal history of other venous thrombosis and embolism; E87.5 Hyperkalemia; Z89.511 Acquired absence of right leg below knee; Z79.4 Long term (current) use of insulin; E11.319 Type 2 diabetes mellitus with unspecified diabetic retinopathy without macular edema; E87.70 Fluid overload, unspecified
CPT/HCPCS: 36415; 36600; 71045; 80048; 80053; 80061; 80307; 81003; 82550; 82553; 82803; 82962; 83690; 83880; 84443; 84484; 85007; 85025; 85610; 85730; 87081; 93005; 94640; 94660; 94664; 96365; 96366; 96368; 96375; 99291; J1815; J7620; S5561

== ENCOUNTER 2018-10-15 17:37 | Inpatient (IN) | payer BC, MEDICARE ==
[2018-10-15] VITALS (20 sets, daily range): BP systolic 134–182; BP diastolic 75–99
[~2018-10-15] VITALS: Ht 172.7 cm; Wt 90.3 kg
[~2018-10-15 17:37] MED LIST changes: +HYDRALAZINE HCL50 MG ORAL
[2018-10-15] MEDS ORDERED: Nitroglycerin 50mg/250ml btl 250 ML IV ONE (17:45)
--- NOTE | 2018-10-15 17:45 | NUR ---
ED Nurse Note: Patient brought in by ambulance RA 29 from home c/o SOB for 1 hour. patient has left HD shunt on the left AV shunt. per ems, 0.8 NTG and 1 breathing tx given. RT by the bedside. DR. Blair by the bedside.
--- NOTE | 2018-10-15 17:53 | NUR ---
ED Nurse Note: called lab for blood draw
--- NOTE | 2018-10-15 17:55 | NUR ---
ED Nurse Note: patient is alert awake x4, able to follow directions.
[2018-10-15 18:31] LABS: BASOPHILS % (AUTO) 1.1 % (0.0-2.0); HEMATOCRIT 38.6 % (42.0-52.0); HEMOGLOBIN 12.1 G/DL (14.2-18.0); MEAN CORPUSCULAR VOLUME 98 FL (80-99); MONOCYTES % (AUTO) 8.2 % (1.0-10.0); NEUTROPHILS % (AUTO) 77.7 % (45.0-75.0); PLATELET COUNT 174 K/UL (150-450); RED BLOOD COUNT 3.96 M/UL (4.70-6.10); RED CELL DISTRIBUTION WIDTH 14.6 % (11.6-14.8); WHITE BLOOD COUNT 10.8 K/UL (4.8-10.8)
--- NOTE | 2018-10-15 18:43 | Emergency Room Report ---
History of Present Illness General Chief Complaint: Dyspnea/Respdistress Source: Patient, Family Member, Medical Record Present Illness HPI Patient is a 68-year-old male who presents after increased severe difficulty with respirations. Patient a prior history of end-stage renal disease. Dialysis was yesterday. He had acute onset of severe difficulty breathing and respiratory distress. Prior history of amputation to the right lower extremity. Shortness of breath is worse with supine position. Severe in nature. Patient was given 2 sprays of nitroglycerin by paramedics. He was continued to have market difficulty breathing and diaphoresis. Allergies: Coded Allergies: No Known Allergies (Unverified , 11/14/16) Patient History Past Medical History: see triage record Reviewed Nursing Documentation: PMH: Agreed; PSxH: Agreed Nursing Documentation-PMH Past Medical History: No History, Except For Hx Cardiac Problems: Yes - lung infection, portion of pancreas removed Hx Hypertension: Yes Hx Asthma: Yes Hx Diabetes: Yes Hx Cancer: No Hx Gastrointestinal Problems: Yes Hx Dialysis: Yes - LUE graft/port; Dialysis M, W, F Hx Neurological Problems: No Review of Systems All Other Systems: limited - by acuity Physical Exam Vital Signs Date Time Temp Pulse Resp B/P (MAP) Pulse Ox O2 Delivery O2 Flow Rate FiO2 10/15/18 17:37 102 28 180/87 (118) 100 Bi-pap 10/15/18 17:51 97.8 10/15/18 17:56 40 General Appearance: alert, GCS 15, severe distress, other - diaphoretic ENT: hearing grossly normal Neck: limited range of motion Respiratory: respiratory distress, accessory muscle use, rales Cardiovascular #1: normal inspection, regular rate, rhythm Gastrointestinal: normal inspection, non tender Musculoskeletal: normal range of motion, other - right bka Neurologic: normal inspection, alert, oriented x3, responsive, ad copy writer III-XII nml as tested Psychiatric: normal inspection Skin: diaphoresis Procedures Critical Care Time Critical Care Time Patient had a critical medical condition which untreated could potentially result in life or limb threatening injury. Total critical care time excluding procedures approximately 45 minutes. Medical Decision Making Diagnostic Impression: Primary Impression: End-stage renal disease Additional Impressions: Acute pulmonary edema CHF exacerbation ER Course Patient was noted to have significant respiratory distress. Differential diagnosis include is not limited to pericardial effusion, cardial infarction, CHF, pneumonia, pneumothorax among others. Because of complexity of patient's case laboratory testing and imaging studies were ordered. Patient was noted to have prior history of end-stage renal disease and had similar symptoms in the past. He was given nitroglycerin by paramedics with some improvement. He was started on BiPAP initially in the emergency department. Patient was given IV nitroglycerin due to continued crackles. He Was Noted to Have Some Gradual Improvement in Respiratory status. Patient was given nitroglycerin drip. He was given IV Lasix. Patient was given IV insulin. Chest x-ray one view interpreted by me showed normal cardiac size with bilateral vascular congestion and fluid in the fissure consistent with fluid overload. Patient is noted to have market improvement in his dyspnea after some time on BiPAP and medications were initiated. Patient subsequently stated he felt better. Dr. Manish Oviedo was contacted for inpatient management due to primary care physician. Dr. Eloy Ruby was contacted for cardiology consult. Dr. Smith Tidwell was contacted for nephrology consult. Labs Test 10/15/18 17:45 10/15/18 18:15 Arterial Blood pH 7.318 (7.350-7.450) Arterial Blood Partial Pressure CO2 49.5 mmHg (35.0-45.0) Arterial Blood Partial Pressure O2 108.5 mmHg (75.0-100.0) Arterial Blood HCO3 24.8 mmol/L (22.0-26.0) Arterial Blood Oxygen Saturation 96.5 % (95-100) Arterial Blood Base Excess -1.7 (-2-2) Doe Test Positive White Blood Count 10.8 K/UL (4.8-10.8) Red Blood Count 3.96 M/UL (4.70-6.10) Hemoglobin 12.1 G/DL (14.2-18.0) Hematocrit 38.6 % (42.0-52.0) Mean Corpuscular Volume 98 FL (80-99) Mean Corpuscular Hemoglobin 30.5 PG (27.0-31.0) Mean Corpuscular Hemoglobin Concent 31.3 G/DL (32.0-36.0) Red Cell Distribution Width 14.6 % (11.6-14.8) Platelet Count 174 K/UL (150-450) Mean Platelet Volume 5.4 FL (6.5-10.1) Neutrophils (%) (Auto) 77.7 % (45.0-75.0) Lymphocytes (%) (Auto) 12.0 % (20.0-45.0) Monocytes (%) (Auto) 8.2 % (1.0-10.0) Eosinophils (%) (Auto) 1.0 % (0.0-3.0) Basophils (%) (Auto) 1.1 % (0.0-2.0) EKG Diagnostic Results Rate: normal - right bundle branch block qtc 523 Rhythm: NSR ST Segments: no acute changes Last Vital Signs Date Time Temp Pulse Resp B/P (MAP) Pulse Ox O2 Delivery O2 Flow Rate FiO2 10/15/18 18:04 111 30 100 Bi-Pap 40 10/15/18 18:02 179/99 10/15/18 17:51 97.8 Status: improved Disposition: ADMITTED INPATIENT Condition: Stable Referrals: [facility],REFERR[facility] (PCP) Anoop Blair MD Oct 15, 2018 18:43
[2018-10-15 18:54] LABS: ALANINE AMINOTRANSFERASE 23 U/L (12-78); ALBUMIN 3.6 G/DL (3.4-5.0); ALBUMIN/GLOBULIN RATIO 0.8 (1.0-2.7); ALKALINE PHOSPHATASE 154 U/L (46-116); ANION GAP 15 mmol/L (5-15); ASPARTATE AMINO TRANSFERASE 26 U/L (15-37); BILIRUBIN,TOTAL 0.5 MG/DL (0.2-1.0); BLOOD UREA NITROGEN 50 mg/dL (7-18); CALCIUM 7.1 MG/DL (8.5-10.1); CARBON DIOXIDE 25 MMOL/L (21-32); CHLORIDE 100 MMOL/L (98-107); CKMB 4.4 NG/ML (0.0-3.6); CREATINE KINASE 324 U/L (26-308); CREATININE 5.7 MG/DL (0.55-1.30); POTASSIUM 4.5 MMOL/L (3.5-5.1); SODIUM 140 MMOL/L (136-145)
--- NOTE | 2018-10-15 19:05 | NUR ---
ED Nurse Note: Notified Dr. Blair regarding sugar of 659
--- NOTE | 2018-10-15 19:12 | NUR ---
ED Nurse Note: per Dr. Blair's verbal order, CN verified the verbal order Nitroglycerin drip is stopped. Endorsed to Bryn Hong Rn.
[2018-10-15] MEDS ORDERED: Insulin Human Regular 100units/ml 3ml IV ONE (19:15)
--- NOTE | 2018-10-15 19:15 | NUR ---
ED Nurse Note: RECEIVED PATIENT FROM SHANI HDZ. PATIENT IN STABLE CONDITION. BIPAP IN PLACE. PER ERMD NITRO DRIP DISCONTINUED.
--- NOTE | 2018-10-15 19:16 | NUR ---
HAND-OFF: Report given to Bryn Hong Rn. RT by the bedside. patient received some ice chips as RT by the bedside.
[2018-10-15] MEDS ORDERED: ZENPEP DR 25,01 EAC1 PO (19:18)
[2018-10-15] MEDS ORDERED: DICYCLOMINE HCL10 MG ORAL (19:18)
[2018-10-15] MEDS ORDERED: AURYXIA210 MG PO (19:18)
[2018-10-15] MEDS ORDERED: LOSARTAN POTASS50 MG ORAL (19:18)
--- NOTE | 2018-10-15 20:08 | NUR ---
ED Nurse Note: report given to wil wayne. patient to be admitted to icu 246b under the care of md fortunato. vre cre mrsa swab collected; sent down to lab.
--- NOTE | 2018-10-15 20:15 | NUR ---
TRANSFER TO FLOOR: Patient transferred to ICU 246 B as ordered, per MD TRAVON. Report given to SHANI MACE. PATIENT IN STABLE CONDITION. BELONGIGNS LIST COMPLETED WITH RECEIVING RN. FAMILY AT BEDSIDE. RT AT BEDSIDE. ENDORSED RIGHT BKA AND PROSTHESIS.
--- NOTE | 2018-10-15 20:30 | NUR ---
NURSE NOTES:Received pt from er with dx SOB awake , alert oriented x3, MAEx4, Pt with RT BKA with prosthesis .SR on the monitor, bP on te high side, on 02 at 2l/nc at this time 02 sat labile. Left arm AV shunt with good bruit. PT also can urinate yellowish urine moderate in amt. RT wrist g 22 periph. IV, patent to flushes. Will continue to monitor.
[2018-10-15] MEDS ORDERED: Miralax 17gm pkt ORAL PRN (20:45)
--- NOTE | 2018-10-15 21:47 | NUR ---
NURSE NOTES: [facility] hemodialysis center called, spoke to Amaya and notified her that Dr. Tidwell ordered HD on this patient tonight, she said the cement mason nurse will be calling me
[2018-10-15] MEDS: Atorvastatin 20mg tab ORAL SCH (22:02)
[2018-10-15] MEDS: Carvedilol 6.25mg Tab ORAL SCH (22:03)
[2018-10-15] MEDS: HydrALAZINE 50mg tab ORAL SCH (22:03)
[2018-10-15] MEDS: Heparin 5000 units/ml inj SUBQ SCH (22:04)
--- NOTE | 2018-10-15 22:28 | NUR ---
NURSE NOTES: HD nurse here in the unit
[2018-10-15] MEDS ORDERED: Levemir Flexpen SUBQ SCH (22:30)
[2018-10-15] MEDS: Albuterol/Ipratropium 3ml neb HHN SCH (23:25)
[2018-10-15] MEDS: Nitroglycerin 50mg/250ml btl 250 ML IV SCH (23:45)
--- NOTE | 2018-10-15 23:45 | NUR ---
NURSE NOTES: Dr hinkle called and was updated withpts condition. Aware md with pts HTN and high blood sugar. -NTG drip was ordered to keep sbp 120-130
[2018-10-16] VITALS (24 sets, daily range): BP systolic 96–172; BP diastolic 57–89
[2018-10-16] MEDS: NovoLOG Insulin Flexpen SUBQ SCH ×9 (00:14→23:43)
--- NOTE | 2018-10-16 01:30 | Consultation ---
DATE OF CONSULTATION: 10/15/2018 CARDIOLOGY CONSULTATION CONSULTING PHYSICIAN: Eloy Ruby M.D. REFERRING PHYSICIAN: Manish Oviedo M.D. REASON: Acute congestive heart failure and possible myocardial infarction. HISTORY OF PRESENT ILLNESS: This is a 68-year-old male with end-stage renal disease, on hemodialysis. His last session was yesterday. He developed relatively acute-onset shortness of breath today. Symptoms worsened as the day progressed and he was unable to lie flat. He also developed chest tightness until several sprays of nitroglycerin after paramedics were summoned with limited in response. The patient was brought to the emergency room where he was immediately placed on oxygen and BiPAP support. PAST MEDICAL HISTORY: Hypertension with hypertensive heart disease, insulin-requiring diabetes mellitus, asthma, gastroesophageal reflux disease, end-stage renal disease, on hemodialysis with left upper extremity AV graft, history of pancreas resection following lung infection, history of congestive heart failure, peripheral artery disease with history of right lower extremity amputation. ALLERGIES: None known. MEDICATIONS: Prior to admission, reviewed and reconciled. SOCIAL HISTORY: No current smoking, alcohol, or substance abuse. REVIEW OF SYSTEMS: Not obtainable from the patient at this time as he is on a BiPAP support. PHYSICAL EXAMINATION: VITAL SIGNS: Blood pressure in the emergency room 180/87, heart rate 102, respiratory rate 28, the patient was afebrile. GENERAL: Alert and responsive. HEENT: Slightly diaphoretic. LUNGS: Accessary muscle use. Diminished breath sounds. Scattered rales. No wheezing. CARDIAC: Regular rhythm rate. Normal S1, S2 with no appreciable murmur, but respiratory sounds are obscuring the exam. There is a palpable bruit over the graft. ABDOMEN: Soft and nontender. EXTREMITIES: With 1+ dependent edema. There is an amputation noted of the right lower extremity. LABORATORY AND DIAGNOSTIC DATA: Initial ABG 7.32, 49, 108. White count 10.8, hemoglobin 12.1, platelets 174,000. Glucose is 653, BUN 50, creatinine 5.7, sodium 140, potassium 4.5, bicarb 25. Troponin 0.094. Pro-natriuretic peptide 5600. Albumin 3.6. EKG revealed sinus rhythm with right bundle-branch block. No acute ST-T wave abnormalities. CONDITION: Critical. PROGNOSIS: Guarded. IMPRESSION: 1. Acute diastolic congestive heart failure. 2. Hypertensive urgency. 3. End-stage renal disease. 4. Insulin-requiring diabetes, uncontrolled. 5. Acute on chronic respiratory acidosis. 6. Non-ST elevation myocardial infarction. PLAN: 1. ICU monitoring. 2. Hemodialysis with urgent ultrafiltration. 3. Nitroglycerin drip for both antiischemic and antihypertensive benefit. 4. Antiplatelet therapy. 5. Stress ulcer and DVT prophylaxis. 6. Beta-blockade and additional titration of antihypertensive regimen. 7. Serial troponin levels. Eloy Ruby M.D. DR: CHARLIE JOB#: [id number] CC:
--- NOTE | 2018-10-16 02:57 | NUR ---
NURSE NOTES: Accucheck 420mg/dl- covered with 12u nov subcut Rt abdl site, pt verbalized that he felt better after the hemodialysis.
[2018-10-16] MEDS: Albuterol/Ipratropium 3ml neb HHN SCH ×6 (03:09→23:12)
--- NOTE | 2018-10-16 04:30 | NUR ---
NURSE NOTES:Dozing on and off . No SOB noted.
--- NOTE | 2018-10-16 05:00 | NUR ---
NURSE NOTES:Pt refused to use BIPAP at this time. Now just placed on 02 at 2L/nc. 02 sat 100%.
[2018-10-16 05:16] LABS: BASOPHILS % (AUTO) 0.9 % (0.0-2.0); EOSINOPHILS % (AUTO) 0.6 % (0.0-3.0); HEMATOCRIT 35.5 % (42.0-52.0); HEMOGLOBIN 11.3 G/DL (14.2-18.0); MEAN CORPUSCULAR VOLUME 97 FL (80-99); MONOCYTES % (AUTO) 10.7 % (1.0-10.0); NEUTROPHILS % (AUTO) 71.8 % (45.0-75.0); PLATELET COUNT 180 K/UL (150-450); RED BLOOD COUNT 3.65 M/UL (4.70-6.10); RED CELL DISTRIBUTION WIDTH 14.5 % (11.6-14.8)
[2018-10-16 05:43] LABS: ANION GAP 14 mmol/L (5-15); BLOOD UREA NITROGEN 36 mg/dL (7-18); CALCIUM 7.6 MG/DL (8.5-10.1); CARBON DIOXIDE 26 MMOL/L (21-32); CHLORIDE 102 MMOL/L (98-107); CHOLESTEROL 149 MG/DL (< 200); CREATININE 4.6 MG/DL (0.55-1.30); HDL CHOLESTEROL 46 MG/DL (40-60); PHOSPHORUS 5.5 MG/DL (2.5-4.9); POTASSIUM 3.3 MMOL/L (3.5-5.1); SODIUM 142 MMOL/L (136-145); TRIGLYCERIDES 123 MG/DL (30-150)
[2018-10-16] MEDS: HydrALAZINE 50mg tab ORAL SCH ×3 (05:43→23:01)
[2018-10-16] MEDS ORDERED: Heparin Sod 1000 units/ml 10ml IV PRN (06:00)
[2018-10-16] MEDS ORDERED: Levothyroxine 25mcg tab ORAL SCH (06:30)
--- NOTE | 2018-10-16 06:42 | NUR ---
NURSE NOTES: Called DR Kamran Ruby for Troponin 1.124. Also aware md that NTG drip was not started due to sbp 120s
--- NOTE | 2018-10-16 06:57 | NUR ---
RESPIRATORY NOTE: Received pt on NC 2L 28%, pt is awake, alert and able to follow commands. Breathing Tx given without any adverse reactions. No SOB or resp distress noted at this time. Pt refused to be back on Bipap. SHANI Montero made aware. Bipap stands by and is plugged into the red outlet, ambu bag is at bedside. will continue to monitor.
--- NOTE | 2018-10-16 07:45 | NUR ---
HAND-OFF: Report given to Eloy MCLEOD.
[2018-10-16] MEDS ORDERED: Losartan 50mg tab ORAL SCH (09:00)
[2018-10-16] MEDS ORDERED: Furosemide 80mg tab ORAL SCH ×2 (09:00→18:00)
[2018-10-16] MEDS: Dicyclomine 10mg Cap ORAL SCH ×3 (09:40→18:36)
[2018-10-16] MEDS: Carvedilol 6.25mg Tab ORAL SCH (09:41)
--- NOTE | 2018-10-16 09:43 | NUR ---
*-*INSURANCE *-* ALL AVAILABLE CLINICALS HAVE BEEN FAXED TO: [facility] P: [phone] F: [phone] (FAX ALL CLINICALS)
[2018-10-16] MEDS: Heparin 5000 units/ml inj SUBQ SCH ×2 (09:45→21:00)
--- NOTE | 2018-10-16 10:30 | NUR ---
NURSE NOTES: Dr. Tidwell called to inform of patient blood sugar at 502 critically high after breakfast meal, ordered to have patient started in average novolog sliding scale, also notified regarding potassium of 3.3, no ordered given at this time, patient denies any sensation of feeling hot and thirsty at this time, he remains awake and alert to name, time, place, and situation, denies any pain and rates it at 0/10.
--- NOTE | 2018-10-16 13:40 | Diagnostic Imaging Report ---
Indication: Dyspnea Comparison: 06/05/2018 A single view chest radiograph was obtained. Findings: Pulmonary vascular congestion demonstrated with some alveolar disease and prominent vascularity. Heart is enlarged. IMPRESSION: Suspected pulmonary vascular congestion. Correlate clinically.
[2018-10-16] MEDS ORDERED: Lomotil 2.5mg tab ORAL PRN (14:00)
[2018-10-16] MEDS ORDERED: 1/2 NS 1000ml IV ONE (14:31)
--- NOTE | 2018-10-16 14:35 | NUR ---
NURSE NOTES: Dr. aguilar called to order Pt/INR and add Coumadin to the current medication, pt/inr will be drawn by cytogenetics laboratory manager, patient is calm and resting comfortably with 2L/min nasal cannula and no distress noted,
--- NOTE | 2018-10-16 15:32 | NUR ---
CASE MANAGEMENT: INITIAL REVIEW 68 YO M STEPHANIE FROM HOME CC: DYSPNEA PMHx: HTN. ASTHMA. DM. HD MWF. SI:RESPIRATORY FAILURE T 97.8 HR 102 RR 28 B/P 180/87 SATS 100% ON BIPAP FIO2 40 BUN 50 CR 5.7 GLU 653 CA 7.1 ALP 154 TOTAL CK 324 CKMB 4.4 TROPONIN 0.094 BNP 5594 ABGs PH 7.318 PCO2 49.5 PO2 108.5 IS: LASIX IV X1 INSULIN HUMAN REGULAR 4 UNITS IV X1 PATIENT ADMITTED TO ICU 10/15/2018 @ 1751 DCP:PATIENT TO BE DISCHARGED TO HOME ONCE MEDICALLY CLEARED. PLAN OF CARE: CARDIO EVAL 10/16/2018 SI:RESPIRATORY FAILURE T 97.7 HR 88 RR 21 B/P 163/69 SATS 99% ON 2L/NC WBC 11 K 3.3 BUN 36 CR 4.6 GLU 443 CA 7.6 PHOS 5.5 TROPONIN 1.124 IS: HYDRALAZINE PO Q8H COREG PO Q12H LASIX PO BID LIPITOR PO QHS LEVEMIR SUBQ QHS COUMADIN PO QHS COZAAR PO QD NORVASC PO QD INSULIN ASPART SUBQ Q3H RENVELA PO TID ICU DCP:PATIENT TO BE DISCHARGED TO HOME ONCE MEDICALLY CLEARED. PLAN OF CARE: GLYCEMIC CONTROL AND MONITORING HD 10/17 Addendum: 10/16/18 at 1630 by Jana Tyson CM [employer]
[2018-10-16 16:22] LABS: INR 1.1 (0.9-1.1)
[2018-10-16] MEDS ORDERED: Pancrelipase Dr Cap ORAL SCH (16:30)
--- NOTE | 2018-10-16 17:10 | NUR ---
HAND-OFF: Report given to SHANI Eldridge patient is calm and resing in bed, remains alert and awake with no slur in speech and answers questions coherently, he denies any pain over chest or body.
--- NOTE | 2018-10-16 17:21 | History & Physical ---
History and Physical History & Physicial History & Physicial HISTORY OF PRESENT ILLNESS: The patient is a 68-year-old man who was admitted with resp distress. He has a longstanding asthma and ESRD. He developed respiratory distress, prompting his visit to the emergency department by EMS. He was found to have pulmonary edema and respiratory failure and was placed on BiPAP. Last dialysis 10/14. PAST MEDICAL HISTORY: Includes renal failure, on dialysis, longstanding asthma, hypertension, hyperlipidemia, deep vein thrombosis, diabetes, hypothyroidism, paroxysmal atrial fibrillation. MEDICATIONS: reviewed ALLERGIES: None. REVIEW OF SYSTEMS: Otherwise unremarkable. SOCIAL HISTORY: He is not a smoker. He does not use alcohol to excess. PHYSICAL EXAMINATION: VITAL SIGNS: stable, no high fever. Off BiPAP. GENERAL: The patient is overweight. SKIN: Warm and dry. HEENT: Head is normocephalic. NECK: No jugular venous distention. No lymphadenopathy. CHEST: Mod wheezing. CARDIAC: Rhythm is regular, no murmur ABDOMEN: Soft and nontender. There is no liver or spleen enlargement. No mass. EXTREMITIES: No clubbing, cyanosis, or edema. R BKA. DIAGNOSTIC DATA: Chest x-ray shows pulmonary edema and effusions. Troponin is elevated. IMPRESSION: 1. Acute respiratory failure. 2. Acute pulmonary edema due to volume overload from renal failure. 3. Renal failure 4. Asthma, stable 5. Hypertension. 6. Hyperlipidemia. 7. DVT and paroxysmal atrial fibrillation on anticoagulation. 8. Diabetes with severe hyperglycemia PLAN: The patient will continue on current medications. He had urgent dialysis for fluid overload. We will give DuoNeb treatments Insulin was adjusted. Cardiology is following. Manish Oviedo MD Oct 16, 2018 17:21
[2018-10-16] MEDS ORDERED: AURYXIA 210 MG ORAL SCH (18:00)
[2018-10-16] MEDS ORDERED: Heparin1,000 units/500ml Premix(Conc:2 units/ml) IV ONE (18:30)
[2018-10-16] MEDS ORDERED: Heparin 25,000u/D5W 500ml 500 ML IV SCH ×2 (18:45→19:00)
[2018-10-16] MEDS ORDERED: AMLODIPINE BESY10 MG ORAL (18:58)
--- NOTE | 2018-10-16 19:15 | Consultation ---
DATE OF CONSULTATION: 10/16/2018 NEPHROLOGY CONSULTATION CONSULTING PHYSICIAN: Smith Tidwell M.D. REFERRING PHYSICIAN: Manish Oviedo M.D. CHIEF COMPLAINT/REASON FOR HOSPITALIZATION: The patient is admitted with pulmonary edema and end-stage renal disease. HISTORY OF PRESENT ILLNESS: The patient has end-stage renal disease, on dialysis, and I saw him on 10/14/2018 on dialysis, he felt fine. He has had recurrent episodes of CHF and presented with respiratory distress, pulmonary edema on chest x-ray and requiring a BiPAP. He has also had asthma, but he has not been wheezing lately according to the patient, and no productive cough, fever, or chills. The patient also had a glucose of over 600 in the emergency room. He is complaining of increasing thirst possibly due to hyperglycemia and feeling dehydrated after dialysis. He drinks a moderate amount of fluid after dialysis sessions. PAST MEDICAL HISTORY: There is a history of Charcot joints, peripheral vascular disease, CHF, prior episode of mild elevation of troponin, and below-knee amputation. 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 PAST SURGICAL HISTORY: Removal of half of the pancreas, several toe amputations, eye surgeries for the detachment, laser treatment for diabetic retinopathy, dialysis fistula left arm, dialysis PermCath, and right below-knee amputation. HABITS: He is a nondrinker and nonsmoker. No use of illicit drugs. MEDICATIONS: Include insulin, I believe it is 28 units in the evening but possibly 40 units and sliding scale, Telmisartan, vitamins, Auryxia, levothyroxine, amlodipine, carvedilol, atorvastatin, and Zenpep. SYSTEM REVIEW: HEAD, EYES, EARS, NOSE, AND THROAT: History of diabetic retinopathy with stable vision. Hearing is good. ENDOCRINE: History of diabetes with labile glucose. History of hypothyroidism, on replacement. PULMONARY: History of asthma. No history of TB. CARDIAC: See history of present illness. He is not complaining of angina. GASTROINTESTINAL: No gastrointestinal bleeding or ulcers. He has had intermittent episodes of severe diarrhea. No nausea and vomiting currently. GENITOURINARY: No dysuria or hematuria. He is able to void normally, he says as much as 500 to 1000 mL per day. NEUROLOGIC: No CVA or seizures. He has some diabetic neuropathy. PHYSICAL EXAMINATION: GENERAL: The patient is alert. VITAL SIGNS: Temperature 97.7, pulse 88, respirations 21, and blood pressure 163/69. HEAD, EYES, EARS, NOSE, AND THROAT: Sclerae are nonicteric. Ocular motion intact in all directions. Oral mucosa moist. NECK: No adenopathy. LUNGS: Clear at the time of my exam. HEART: Rhythm is regular. I hear no murmur. ABDOMEN: Soft without organomegaly or masses. EXTREMITIES: Show trace edema. There is a right below-knee amputation. He has Charcot joints of the toes of the left foot. NEUROLOGIC: He is alert and oriented. Cranial nerves are intact. LABORATORY DATA: Review of pertinent labs show white count of 11, hemoglobin 11.3. Glucose 653 down to 443. Troponin 0.094, repeat 1.124. Cholesterol 149. Sodium 140, potassium 4.5, BUN 50, and creatinine 5.7. IMPRESSION: 1. Congestive heart failure, acute on chronic with pulmonary edema. 2. End-stage renal disease. 3. Hypertensive heart disease. 4. Per patient's history, he has had a negative stress test. 5. History of maintenance on Coumadin. 6. History of dietary noncompliance. 7. Insulin-dependent diabetes with hyperglycemia. PLAN: The patient will get serial dialysis. Monitor his cardiac status and diabetic status closely. He is a high risk patient. Thank you so much for allowing me to . Smith Tidwell M.D. DR: MARIO JOB#: [id number] CC:
[2018-10-16] MEDS ORDERED: RENA-VITE TABL0.8 M1 PO (19:19)
[2018-10-16] MEDS ORDERED: VIT C PO (19:29)
[2018-10-16] MEDS ORDERED: [UNRECOGNIZED DRUG - OTHER] PO (19:29)
--- NOTE | 2018-10-16 19:30 | NUR ---
NURSE NOTES: REPORTED FROM ORAL CASTANEDA RN.
[2018-10-16] MEDS ORDERED: SYMBICORT 16010.2 G1 IH (19:32)
[2018-10-16] MEDS ORDERED: LOMOTIL TABLET1 EACH ORAL (19:32)
--- NOTE | 2018-10-16 19:35 | NUR ---
NURSE NOTES: PATIENT ALERT, ORIENTED, DENIED PAIN OR SOB AT THIS TIME, ON O2 2LPM VIA NC, O2 SATURATION 100% NOTED, ABDOMEN SOFT, AV SHUNT TO LEFT ARM, KEPT LEFT ARM PRECAUTION, PERIPHERAL LINE TO RIGHT LOWER FA, INFILTRATED, REMOVED AND INSERTED NEW LINE TO RIGHT FA 22G, RIGHT BKA STATUS, PROSTHESIS AT BEDSIDE, PROVIDED CALL LIGHT WITHIN REACH, MADE LOWER BED, ON BED ALARM, WILL CONTINUE TO MONITOR.
--- NOTE | 2018-10-16 19:40 | NUR ---
NURSE NOTES: DIALYSIS NURSE CAME AT THIS TIME.
[2018-10-16] MEDS ORDERED: Levemir Flexpen SUBQ SCH (21:00)
[2018-10-16] MEDS ORDERED: Warfarin Sodium 1mg ORAL SCH (21:00)
[2018-10-16] MEDS ORDERED: Carvedilol 12.5mg tab ORAL SCH (21:00)
--- NOTE | 2018-10-16 21:15 | NUR ---
NURSE NOTES: ONGOING DIALYSIS AT THIS TIME.
--- NOTE | 2018-10-16 22:45 | NUR ---
NURSE NOTES: FINISHED DIALYSIS AT THIS TIME, 3000ML WAS REMOVED.
[2018-10-16] MEDS: Atorvastatin 20mg tab ORAL SCH (23:01)
[2018-10-16] MEDS: Nitroglycerin 50mg/250ml btl 250 ML IV SCH (23:42)
--- NOTE | 2018-10-16 23:48 | NUR ---
TRANSFER TO FLOOR: Patient transferred to telemetry unit room 209-2via hsopital bed, no acute distress noted while transfer. Report given to SHANI BYRD. Belongings and medications given to SHANI BYRD. Family and or S/O informed of transfer.
--- NOTE | 2018-10-16 23:55 | NUR ---
NURSE NOTES: Received report from Coco Bonds RN. Regarding patient's transfer to TELE floor from ICU. belongings checked and noted, head to toe assessment initiated with no skin issues noted. Patient in bed AAO X4 with no complaints of acute pain or distress at this time. kept clean, dry, and comfortable in bed. IV line intact and patent and noted JOEL Shunt for HD use, continuous cardiac monitoring per protocol. No complaints of SOB or Resp distress observed, placed on 2L NC with 02 at 95-96%. Patient offered urinal at bedside and assistance from staff to the commode using right leg prosthesis for Right BKA that was brought in with patient. Safety precaution in place; siderails X2 up, call light within reach, bed in lowest position, brakes and alarm on at all times. Needs and wants anticipated and attended, will continue plan of care and monitor for changes. Orders transferred per protocol.
[2018-10-17] VITALS: BP 149/73
[2018-10-17] MEDS ORDERED: Heparin Sod 1000 units/ml 10ml IV ONE ×2
--- NOTE | 2018-10-17 00:15 | Progress Note ---
DATE: 10/16/2018 CARDIOLOGY PROGRESS NOTE SUBJECTIVE: The patient's condition remains critical. Prognosis guarded. He remains in the intensive care unit. He is status post urgent hemodialysis with ultrafiltration late last night to early this morning. Troponin level is rising. He is less short of breath and has no chest discomfort. OBJECTIVE: VITAL SIGNS: Blood pressure 150/70, pulse 80, and respirations 22. Monitored, sinus with paroxysms of atrial fibrillation. LUNGS: Diminished breath sounds. Scattered rales. HEART: Irregularly irregular rhythm. Normal S1, S2 with no murmur appreciated. ABDOMEN: Soft and obese. EXTREMITIES: With bruit over the left upper extremity. Right BKA. Trace left lower extremity edema. LABORATORY DATA: Troponin increased from 0.094 to 1.124. IMPRESSION: 1. Acute myocardial infarction. 2. Acute on chronic diastolic congestive heart failure. 3. End-stage renal disease. 4. Hypertensive heart disease. 5. Paroxysmal atrial fibrillation. 6. Insulin-requiring diabetes, out of control. 7. Possible lung mass. PLAN: 1. Cardiac monitoring. 2. ICU care. 3. Additional ultrafiltration with hemodialysis. 4. Continue beta-evens and IV nitroglycerin. 5. Maximize antianginal and anti-failure regimen. 6. Full anticoagulation. 7. Further recommendations will follow. 8. Lipid panel is pending. 9. Echocardiogram has been completed. Results to be reviewed. Eloy Ruby M.D. DR: ANNY JOB#: [id number] CC:
[2018-10-17] MEDS ORDERED: Heparin Sod 1000 units/ml 10ml IV PRN ×2 (01:00→06:00)
[2018-10-17 01:49] LABS: EOSINOPHILS % (AUTO) 2.3 % (0.0-3.0); HEMATOCRIT 37.8 % (42.0-52.0); HEMOGLOBIN 12.3 G/DL (14.2-18.0); LYMPHOCYTES % (AUTO) 24.5 % (20.0-45.0); MEAN CORPUSCULAR VOLUME 95 FL (80-99); MONOCYTES % (AUTO) 10.1 % (1.0-10.0); NEUTROPHILS % (AUTO) 62.1 % (45.0-75.0); PLATELET COUNT 195 K/UL (150-450); RED BLOOD COUNT 3.98 M/UL (4.70-6.10); RED CELL DISTRIBUTION WIDTH 13.9 % (11.6-14.8)
[2018-10-17] MEDS ORDERED: Lomotil 2.5mg tab ORAL PRN (02:00)
[2018-10-17 02:14] LABS: ALANINE AMINOTRANSFERASE 24 U/L (12-78); ALBUMIN 3.5 G/DL (3.4-5.0); ALBUMIN/GLOBULIN RATIO 0.8 (1.0-2.7); ALKALINE PHOSPHATASE 118 U/L (46-116); ANION GAP 11 mmol/L (5-15); ASPARTATE AMINO TRANSFERASE 25 U/L (15-37); BILIRUBIN,TOTAL 0.4 MG/DL (0.2-1.0); BLOOD UREA NITROGEN 34 mg/dL (7-18); CARBON DIOXIDE 27 MMOL/L (21-32); CHLORIDE 101 MMOL/L (98-107); CREATININE 4.8 MG/DL (0.55-1.30); POTASSIUM 3.4 MMOL/L (3.5-5.1); SODIUM 139 MMOL/L (136-145)
[2018-10-17] MEDS: NovoLOG Insulin Flexpen SUBQ SCH ×6 (02:37→15:28)
[2018-10-17] MEDS ORDERED: Heparin 25,000u/D5W 500ml 500 ML IV SCH ×3 (02:45→18:45)
[2018-10-17] MEDS ORDERED: Heparin 5000 units/ml inj IV SCH (02:45)
--- NOTE | 2018-10-17 03:13 | NUR ---
NURSE NOTES: Patient AAO X4 in bed with no complaints of distress. Will continue plan of care.
[2018-10-17] MEDS: Albuterol/Ipratropium 3ml neb HHN SCH ×4 (03:26→15:38)
[2018-10-17 04:00] VITALS: BP 150/72
[2018-10-17] MEDS: HydrALAZINE 50mg tab ORAL SCH ×2 (05:42→15:24)
[2018-10-17] MEDS: Pancrelipase Dr Cap ORAL SCH ×2 (06:03→12:29)
[2018-10-17] MEDS ORDERED: Levothyroxine 25mcg tab ORAL SCH (06:30)
--- NOTE | 2018-10-17 07:34 | NUR ---
HAND-OFF: Report given to Little Fofana RN. Patient in bed in stable condition, endorsed plan of care.
[2018-10-17 08:00] VITALS: BP 142/76
[2018-10-17] MEDS ORDERED: Furosemide 80mg tab ORAL SCH (09:00)
[2018-10-17] MEDS ORDERED: Carvedilol 12.5mg tab ORAL SCH (09:00)
[2018-10-17] MEDS ORDERED: Losartan 50mg tab ORAL SCH (09:00)
[2018-10-17] MEDS: Dicyclomine 10mg Cap ORAL SCH ×2 (09:39→12:28)
[2018-10-17] MEDS: AURYXIA 210 MG ORAL SCH ×2 (09:40→12:30)
--- NOTE | 2018-10-17 10:09 | NUR ---
*-*INSURANCE *-* UPDATED CLINICALS AND REVIEWS HAVE BEEN FAXED TO: [facility] P: [phone] F: [phone] (FAX ALL CLINICALS)
[2018-10-17 11:41] VITALS: BP 149/83
[2018-10-17] MEDS ORDERED: FUROSEMIDE80 MG ORAL (12:27)
[2018-10-17] MEDS ORDERED: ASPIR 8181 MG ORAL (12:27)
--- NOTE | 2018-10-17 13:00 | NUR ---
NURSE NOTES: HD DONE ZERO OUT PUT VITAL SIGN POST HD 123/74 WILL CONTINUE TO MONITOR
[2018-10-17 15:24] VITALS: BP 133/83
--- NOTE | 2018-10-17 15:51 | NUR ---
NURSE NOTES: PATIENT DISCHARGED WITH ALL HIS BELONGING ORDERED. VITAL SIGNS STABLE.NO C/O PAIN AND SOB PATIENT ACCOMMODATED WITH HIS ON D/C
[2018-10-17] MEDS ORDERED: Miralax 17gm pkt ORAL PRN (20:45)
[2018-10-17] MEDS ORDERED: Levemir Flexpen SUBQ SCH (21:00)
[2018-10-17] MEDS ORDERED: Atorvastatin 20mg tab ORAL SCH (21:00)
--- NOTE | 2018-10-17 21:31 | Discharge Summary ---
Discharge Summary Discharge Summary _ DATE OF ADMISSION: 10/15/2018 DATE OF DISCHARGE: 10/17/2018 CONSULTANTS: Dr. Smiht Ruby BRIEF HOSPITAL COURSE: Patient is a 68-year-old male, who was admitted with respiratory distress and chest tightness. He has history of long-standing asthma and ESRD. He developed respiratory distress, prompting visit to the emergency department by EMS. He has medical history significant for renal failure, asthma, hypertension , hyperlipidemia, deep vein thrombosis, diabetes, hypothyroidism and paroxysmal atrial fibrillation. On evaluation at the ED, he was noted to have significant respiratory distress. He was started on BiPAP. Blood work did not show any leukocytosis. Hemoglobin 12, hematocrit 39. BUN 50, creatinine 5.7. Glucose 653. Troponin I was 0.094. He was given IV nitroglycerin. He had some improvement. He was given Lasix. He was given insulin. Chest x-ray read by ED physician showed normal cardiac size with bilateral vascular congestion and fluid in the fissure consistent with fluid overload. He was then admitted to ICU for respiratory distress. He was continued on nitroglycerin drip for both anti-ischemic and antihypertensive benefit. He was placed warfarin. He was given Coreg and Lipitor. He was given stress ulcer and DVT prophylaxis. Cardiac enzymes were monitored. He was given inpatient hemodialysis. Blood glucose was monitored, he was given insulin sliding scale. Cardiac enzymes were rising. Patient was less short of breath and had no chest discomfort. He was discharged home. FINAL DIAGNOSES: Acute respiratory failure Acute pulmonary edema due to volume overload from renal failure Hypertension Hyperlipidemia Acute myocardial infarction Acute on chronic diastolic congestive heart failure End-stage renal disease Insulin requiring diabetes out of control Possible lung mass Hypertensive heart disease DISPOSITION: Patient was discharged home. DISCHARGE MEDICATIONS: Refer to Discharge Medication List. DISCHARGE INSTRUCTIONS: Follow-up in a week. I have been assigned to complete a discharge summary on this account, I was not involved with the patient's management.--PIYUSH Gupta Jacqueline Robles NP Oct 17, 2018 21:31
--- NOTE | 2018-10-18 00:45 | Discharge Summary ---
DATE OF ADMISSION: 10/15/2018 DATE OF DISCHARGE: 10/17/2018 PERTINENT HISTORY: The patient is a 68-year-old man with end-stage renal disease, on dialysis, hypertension, and insulin-dependent diabetes. He presents with shortness of breath, pulmonary edema on chest x-ray, and respiratory failure, and glucose more than 600. PERTINENT PHYSICAL: LUNGS: At the time of my exam, his lungs were clear. HEART: Regular rhythm. No murmur. ABDOMEN: Soft without organomegaly. EXTREMITIES: Show trace edema. There is a right below-knee amputation. COURSE IN THE HOSPITAL: The patient was given emergency dialysis and serial dialysis daily with fluid removal. Insulin was adjusted and he was given sliding scale and glucose fell below 200. He did have borderline elevation of troponins, but no evidence of chest pain. His troponins are 0.094, 1.124, 0.854, 0.915, and 0.780. The patient had no arrhythmias or complications. On the day of discharge, his lungs were clear. Heart, regular rhythm. Abdomen, soft. Extremities, no edema. He felt much better and he was discharged home in improved condition. FINAL DIAGNOSES: 1. Pulmonary edema. 2. Congestive heart failure, acute on chronic with diastolic dysfunction. His ejection fraction was 60%. 3. Non ST-elevation myocardial infarction. 4. End-stage renal disease. 5. Insulin-dependent diabetes or hyperglycemia. 6. Noncompliance to renal diet as an outpatient discussed. DISCHARGE DISPOSITION: Home on a renal diabetic diet. MEDICATIONS: Per the discharge medication list, which include aspirin 81 mg daily, levothyroxine 25 mcg daily, amlodipine 10 mg daily, carvedilol 6.25 b.i.d., atorvastatin 20 mg at bedtime, losartan 100 mg daily, furosemide 160 mg b.i.d., hydralazine 50 mg t.i.d., warfarin 2 tablets alternating with 1-1/2 tablets depending on laboratory results, Zenpep 1 tablet t.i.d., Diana-Aubrey 1 daily, full spectrum vitamins daily, Auryxia 210 mg 3 tablets daily with meals, dicyclomine 10 mg t.i.d. p.r.n., Lantus 40 units at bedtime, and sliding scale. FOLLOWUP: Follow up by Dr. Tidwell in dialysis and his primary care doctors, who are not on staff in this hospital. Smith Tidwell M.D. DR: MASON JOB#: [id number] CC:
--- NOTE | 2018-10-18 03:30 | Progress Note ---
DATE: 10/17/2018 CARDIOLOGY PROGRESS NOTE SUBJECTIVE: The patient has no shortness of breath today. No chest pain. He is status post hemodialysis with ultrafiltration. OBJECTIVE: VITAL SIGNS: Blood pressure 198/108, now 133/83, heart rate 86, respiratory rate 20. No fevers. Room air oxygen saturation 96%. LUNGS: Clear. CARDIAC: Regular rhythm and rate. Normal S1, S2. There is a fourth heart sound. ABDOMEN: Soft and nontender. EXTREMITIES: With no edema. Right BKA. LABORATORY DATA: Glucose has improved below 200. Laboratory data reviewed. IMPRESSION: 1. Zyj-EE-[id number] myocardial infarction. 2. Acute on chronic diastolic congestive heart failure. 3. Acute respiratory insufficiency. 4. End-stage renal disease. 5. Insulin-requiring diabetes with hyperglycemia. 6. Hypertensive heart disease with labile blood pressure. 7. Paroxysmal atrial fibrillation. PLAN: 1. Continue hemodialysis with ultrafiltration for volume management. 2. Maintain current antihypertensive regimen for blood pressure control and antianginal benefits. 3. Full anticoagulation with warfarin to INR goal of 2 to 3. Eloy Ruby M.D. DR: ANNY JOB#: [id number] CC:
--- NOTE | 2018-10-18 11:16 | NUR ---
*-*INSURANCE *-* DISCHARGE SUMMARY HAS BEEN FAXED TO: [facility] P: [phone] F: [phone] (FAX ALL CLINICALS)
--- NOTE | 2018-10-18 15:58 | Cardiology Report ---
APPROVED REPORT EXAM: Two-dimensional and M-mode echocardiogram with Doppler and color Doppler. INDICATION Congestive Heart Failure M-Mode DIMENSIONS IVSd1.0 (0.7-1.1cm)Left Atrium (MM)4.2 (1.6-4.0cm) LVDd5.0 (3.5-5.6cm)Aortic Root3.1 (2.0-3.7cm) PWd1.0 (0.7-1.1cm)Aortic Cusp Exc.2.1 (1.5-2.0cm) LVDs3.2 (2.5-4.0cm) PWs1.8 cm Normal left ventricular chamber size, systolic function and wall motion. Left ventricular ejection fraction estimated to be 60 %. No evidence of left ventricular hypertrophy. Possible small posterior pericardial effusion. Mild left atrial enlargement. Right atrium at upper limits of normal. Right ventricular chamber sizes is within normal limits. Focal aortic valve sclerosis with adequate cusp excursion. Thickened mitral valve leaflets with normal excursion. Normal pulmonic valve structure. Normal tricuspid valve structure. IVC at normal size without physiologic collapse. A color flow and spectral Doppler study was performed and revealed: No aortic regurgitation. Trace mitral regurgitation. Mitral diastolic velocities suggest mild left ventricular diastolic dysfunction (Grade I). Trace tricuspid regurgitation. Tricuspid systolic velocities suggests peak right ventricular systolic pressure of 19 mmHg. No pulmonic regurgitation present.
--- NOTE | 2018-10-18 16:22 | Cardiology Report ---
APPROVED REPORT EKG Measurement Heart [id number] Normal sinus rhythm Left axis deviation Right bundle branch block Abnormal ECG
== END 2018-10-17 16:07 | disposition home or self-care (01) | DRG 280 ==
LOC: EDBD 17:37 → EDBEDREQ 17:52 → EMR 18:13 → EDBEDREQ 18:49 → EDBEDREQSVC 18:49 → ICU 19:25 → EDBEDREQ 19:46 → EDBEDREQSVC 19:53 → EDBEDREQ 19:53 → EMR 20:20 → 2E 10-16 23:41
PROC: 5A1D70Z Performance of Urinary Filtration, Intermittent, Less than 6 Hours Per Day (ICD-10-PCS; principal; 2018-10-15)
DX: I21.4 Non-ST elevation (NSTEMI) myocardial infarction (principal); N18.6 End stage renal disease; J96.00 Acute respiratory failure, unspecified whether with hypoxia or hypercapnia; I50.33 Acute on chronic diastolic (congestive) heart failure; I13.2 Hypertensive heart and chronic kidney disease with heart failure and with stage 5 chronic kidney disease, or end stage renal disease; E87.2 Acidosis; J45.909 Unspecified asthma, uncomplicated; E78.5 Hyperlipidemia, unspecified; E11.22 Type 2 diabetes mellitus with diabetic chronic kidney disease; E11.65 Type 2 diabetes mellitus with hyperglycemia; E87.79 Other fluid overload; Z99.2 Dependence on renal dialysis; Z79.4 Long term (current) use of insulin; J98.4 Other disorders of lung; Z86.718 Personal history of other venous thrombosis and embolism; E11.319 Type 2 diabetes mellitus with unspecified diabetic retinopathy without macular edema; E11.40 Type 2 diabetes mellitus with diabetic neuropathy, unspecified; Z89.511 Acquired absence of right leg below knee; E11.610 Type 2 diabetes mellitus with diabetic neuropathic arthropathy; Z91.11 Patient's noncompliance with dietary regimen
CPT/HCPCS: 36415; 36600; 71045; 80048; 80053; 80061; 82550; 82553; 82803; 82947; 82962; 83036; 83880; 84100; 84153; 84443; 84484; 85025; 85610; 85730; 87081; 93005; 93306; 94640; 94660; 94664; 96365; 96366; 96375; 99291; J1815; J7620; S5561

== ENCOUNTER 2019-01-03 16:22 | Inpatient (IN) | payer OTHER, MEDICARE ==
[~2019-01-03] VITALS: Ht 172.7 cm; Wt 85.3 kg
[~2019-01-03 16:22] MED LIST changes: +AURYXIA210 MG PO; +DICYCLOMINE HCL10 MG ORAL; +FUROSEMIDE80 MG ORAL; +Heparin Sod 1000 units/ml 10ml IV PRN; +LOMOTIL TABLET1 EACH ORAL; +LOSARTAN POTASS50 MG ORAL; +RENA-VITE TABL0.8 M1 PO; +VIT C PO; +ZENPEP DR 25,01 EAC1 PO; +[UNRECOGNIZED DRUG - OTHER] PO
--- NOTE | 2019-01-03 16:48 | Emergency Room Report ---
History of Present Illness General Chief Complaint: General Complaint Source: Patient Present Illness HPI Disclaimer: Please note that this report is being documented using [employer] technology. This can lead to erroneous entry secondary to incorrect interpretation by the dictating instrument. HPI: 68-year-old male with history of ESRD on hemodialysis MWF, hypertension, hyperlipidemia, diabetes presents for evaluation of rapid heart rate. The patient was scheduled for dialysis today however his heart rate was found to be in the 140s and therefore dialysis was deferred. His supervisor estimator and drafter sent him over for evaluation. There is concern over possible atrial fibrillation though he has not had prior episodes of an irregular heart rate and has no complaints at this time. He denies chest pain, shortness of breath, exertional dyspnea, cough, palpitations, lightheadedness or any other changes in his health. Has been compliant with hemodialysis not missed any sessions recently. PMH: Hypertension, hyperlipidemia, ESRD, diabetes PSH: Right BKA Allergies: Denies Social Hx: Denies drug, alcohol or tobacco use Allergies: Coded Allergies: No Known Allergies (Unverified , 11/14/16) Nursing Documentation-PMH Past Medical History: No History, Except For Hx Cardiac Problems: Yes - lung infection, portion of pancreas removed Hx Hypertension: Yes Hx Asthma: Yes Hx Diabetes: Yes Hx Cancer: No Hx Gastrointestinal Problems: Yes Hx Dialysis: Yes - LUE graft/port; Dialysis M, W, F Hx Neurological Problems: No Review of Systems All Other Systems: negative except mentioned in HPI Physical Exam Vital Signs Date Time Temp Pulse Resp B/P (MAP) Pulse Ox O2 Delivery O2 Flow Rate FiO2 01/03/19 16:27 99.0 141 18 135/82 (99) 98 Room Air General: Awake and alert, no acute distress HEENT: NC/AT. EOMI. Cardiovascular: Tachycardic with rate in the 140s. Difficult to appreciate rhythm. There is an S4 gallop. No obvious murmur. Palpable thrill in the fistula on the left upper extremity. Resp: Normal work of breathing. No cough, wheezing or crackles appreciated Abdomen: Abdomen is soft, nondistended. Nontender Skin: Intact. No abrasions, laceration or rash over the exposed skin MSK: Normal tone and bulk. Moving all extremities. No obvious deformity. Neuro: Awake and alert. Mentating appropriately. Procedures Critical Care Time Critical Care Time Total critical care time: Approximately 31 minutes Due to a high probability of clinically significant, life threatening deterioration, the patient required the highest level of preparedness to intervene emergently and I personally spent this critical care time directly and personally managing the patient. This critical care time included obtaining a history, examining the patient, pulse oximetry, ordering and reviewing studies , ordering treatments, evaluating response to treatment and updating management plan as needed, frequent reassessment and discussion with other providers as well as arranging for ultimate disposition. This critical to care time was performed to assess and manage the high probability of life-threatening deterioration that could result in multiorgan failure. This critical care time is separate from the separately billable procedures and treating other patients. Medical Decision Making Diagnostic Impression: Primary Impression: Atrial flutter Additional Impressions: End-stage renal disease Volume overload ER Course 68-year-old male history of ESRD on hemodialysis presents for evaluation of rapid heart rate found at dialysis today. Chinese includes was not limited to electrolyte abnormalities, atrial fibrillation, atrial flutter, SVT, WPW. Will obtain EKG, chest x-ray, labs. He is well-appearing and asymptomatic. Denies prior history of cardiac arrhythmias. He is on Coumadin. The patient is somewhat frustrated over his visit today and has stated multiple times that he would not like to stay the night. Will discuss results with him though he has full decision-making capacity. Will reevaluate after labs are resulted Laboratory Tests Test 01/03/19 16:45 01/03/19 17:45 Prothrombin Time Pending Prothrombin Time INR Pending White Blood Count 10.3 K/UL (4.8-10.8) Red Blood Count 4.26 M/UL (4.70-6.10) L Hemoglobin 13.0 G/DL (14.2-18.0) L Hematocrit 38.6 % (42.0-52.0) L Mean Corpuscular Volume 91 FL (80-99) Mean Corpuscular Hemoglobin 30.6 PG (27.0-31.0) Mean Corpuscular Hemoglobin Concent 33.8 G/DL (32.0-36.0) Red Cell Distribution Width 13.1 % (11.6-14.8) Platelet Count 233 K/UL (150-450) Mean Platelet Volume 5.4 FL (6.5-10.1) L Neutrophils (%) (Auto) 69.4 % (45.0-75.0) Lymphocytes (%) (Auto) 19.3 % (20.0-45.0) L Monocytes (%) (Auto) 9.0 % (1.0-10.0) Eosinophils (%) (Auto) 1.4 % (0.0-3.0) Basophils (%) (Auto) 0.9 % (0.0-2.0) Sodium Level 137 MMOL/L (136-145) Potassium Level 3.5 MMOL/L (3.5-5.1) Chloride Level 98 MMOL/L (98-107) Carbon Dioxide Level 26 MMOL/L (21-32) Anion Gap 13 mmol/L (5-15) Blood Urea Nitrogen 63 mg/dL (7-18) H Creatinine 8.5 MG/DL (0.55-1.30) H Estimate Glomerular Filtration Rate 7.6 mL/min (>60) Glucose Level 49 MG/DL (74-106) L Calcium Level 6.4 MG/DL (8.5-10.1) L Magnesium Level 2.2 MG/DL (1.8-2.4) Total Bilirubin 0.3 MG/DL (0.2-1.0) Aspartate Amino Transferase (AST) 31 U/L (15-37) Alanine Aminotransferase (ALT) 30 U/L (12-78) Alkaline Phosphatase 104 U/L (46-116) Troponin I 0.064 ng/mL (0.000-0.056) Pro-B-Type Natriuretic Peptide 84389 pg/mL (0-125) H Total Protein 8.8 G/DL (6.4-8.2) H Albumin 4.0 G/DL (3.4-5.0) Globulin 4.8 g/dL Albumin/Globulin Ratio 0.8 (1.0-2.7) L EKG Diagnostic Results EKG Time: 17:22 Rate: tachycardiac Other Impression Sinus tachycardia, NH interval appears shortened and possible up slurring of the QRS complex though QRS is of normal duration. Nonspecific ST abnormalities and right bundle branch block pattern. No obvious ST segment elevation. Multiple PACs PA Scribe Text EKG #2 status post rate control Atrial flutter with variable conduction. Aberrancy with premature atrial and ventricular complexes. Otherwise nonischemic. Right bundle branch block pattern persists. Rhythm Strip Diag. Results Rhythm Strip Time: 17:22 EP Interpretation: yes Rate: 140s Chest X-Ray Diagnostic Results Chest X-Ray Diagnostic Results : Chest X-Ray Ordered: Yes # of Views/Limited/Complete: 1 View Indication: Chest Pain EP Interpretation: Yes Interpretation: no consolidation, no pneumothorax, no acute cardiopulmonary disease, other - Small effusion left lower lobe, bilateral atelectasis, enlarged cardiac silhouette Impression: Other - Bilateral atelectasis. Small effusion left lower lobe Electronically Signed by: Electronically signed by Dr. Dillon Goncalves Reevaluation Time: 18:35 Last Vital Signs Date Time Temp Pulse Resp B/P (MAP) Pulse Ox O2 Delivery O2 Flow Rate FiO2 01/03/19 16:27 99.0 141 18 135/82 (99) 98 Room Air Reevaluation Impression Labs do not show any significant electrolyte abnormality, signs of systemic infection or significant cardiac ischemia. Troponin is slightly elevated though patient has had significantly higher readings in the past and is likely secondary to his ESRD and elevated heart rate. Elevated peptide and creatinine consistent with ESRD and some fluid overload and there is a small effusion on the left side on his chest x-ray but no sign of respiratory distress and the patient has no difficulty breathing. He is EKG shows right bundle branch block pattern and similar morphology to EKG in October of this year. It appears the patient is in a supraventricular rhythm and will attempt diltiazem for rate control 1930: Patient is now rate controlled following 20 mg IV diltiazem. He will be loaded with 60 mg oral diltiazem and admitted for further evaluation of supraventricular rhythm. Repeat EKG shows atrial flutter which is now rate controlled and aberrancy with PACs. He was also slightly hypoglycemic but was given orange juice with improvement. Patient agrees with admission. He will also require dialysis. Discussed with the patient's healthcare plan physician, Dr. Akbar, who agrees that he requires inpatient admission and can be admitted here in our hospital in the SDU under Dr. Oviedo per patient's health plan. Dr. Tidwell of nephrology and Dr. Ruby of cardiology are aware of the patient. Disposition: ADMITTED INPATIENT Condition: Serious Dillon Goncalves MD Jan 03, 2019 16:48
[2019-01-03 17:11] VITALS: BP 135/82
--- NOTE | 2019-01-03 17:12 | NUR ---
ED Nurse Note:pt. came with tachycardia, reffered by dr. Tidwell, pt. is A/Ox4 ambulatory, has dialysis shunt on left upper arm
[2019-01-03] MEDS ORDERED: dilTIAZem HCl 25mg/5ml Inj IVP ONE ×2 (17:45→19:00)
--- NOTE | 2019-01-03 17:55 | NUR ---
ED Nurse Note:blood sent to labs
--- NOTE | 2019-01-03 17:55 | Diagnostic Imaging Report ---
EXAM: XR Chest, 1 View CLINICAL HISTORY: CP TECHNIQUE: Frontal view of the chest. COMPARISON: Chest radiograph on 10 15 2018 FINDINGS: Hardware: None. Lungs pleura: Bibasilar opacities likely represent atelectasis, but component of pneumonia cannot be excluded. Small left pleural effusion. Heart mediastinum: Mild enlargement of the cardiac silhouette. Soft tissues: Unremarkable. Bones: No acute fracture. Degenerative changes of the acromioclavicular joints. Upper abdomen: Normal. IMPRESSION: Bibasilar opacities likely represent atelectasis, but component of pneumonia cannot be excluded. Small left pleural effusion.
[2019-01-03 18:13] LABS: BASOPHILS % (AUTO) 0.9 % (0.0-2.0); EOSINOPHILS % (AUTO) 1.4 % (0.0-3.0); HEMATOCRIT 38.6 % (42.0-52.0); LYMPHOCYTES % (AUTO) 19.3 % (20.0-45.0); MEAN CORPUSCULAR VOLUME 91 FL (80-99); NEUTROPHILS % (AUTO) 69.4 % (45.0-75.0); PLATELET COUNT 233 K/UL (150-450); RED BLOOD COUNT 4.26 M/UL (4.70-6.10); RED CELL DISTRIBUTION WIDTH 13.1 % (11.6-14.8); WHITE BLOOD COUNT 10.3 K/UL (4.8-10.8)
[2019-01-03 18:14] LABS: ANION GAP 13 mmol/L (5-15); BLOOD UREA NITROGEN 63 mg/dL (7-18); CALCIUM 6.4 MG/DL (8.5-10.1); CARBON DIOXIDE 26 MMOL/L (21-32); CHLORIDE 98 MMOL/L (98-107); CREATININE 8.5 MG/DL (0.55-1.30); POTASSIUM 3.5 MMOL/L (3.5-5.1); SODIUM 137 MMOL/L (136-145)
--- NOTE | 2019-01-03 18:15 | NUR ---
ED Nurse Note:orange juice with sugar given for hypoglicemia
[2019-01-03 18:26] LABS: ALANINE AMINOTRANSFERASE 30 U/L (12-78); ALBUMIN/GLOBULIN RATIO 0.8 (1.0-2.7); ALKALINE PHOSPHATASE 104 U/L (46-116); ASPARTATE AMINO TRANSFERASE 31 U/L (15-37); BILIRUBIN,TOTAL 0.3 MG/DL (0.2-1.0)
[2019-01-03 18:51] VITALS: BP 137/78
[2019-01-03 19:07] VITALS: BP 137/78
--- NOTE | 2019-01-03 19:07 | NUR ---
ED Nurse Note:pt. was given 20mg IV cardizem per MD order and HR went down to 71
[2019-01-03] MEDS ORDERED: dilTIAZem HCl 60mg tab ORAL ONE (20:00)
[2019-01-03] MEDS ORDERED: dilTIAZem HCl 30mg tab ORAL ONE (20:00)
[2019-01-03] MEDS ORDERED: Nitroglycerin Subl 0.4mg tab SL PRN (20:00)
[2019-01-03] MEDS ORDERED: Miralax 17gm pkt ORAL PRN (20:00)
[2019-01-03] MEDS ORDERED: Lomotil 2.5mg tab ORAL PRN (20:00)
[2019-01-03 20:38] VITALS: BP 136/67
--- NOTE | 2019-01-03 20:42 | NUR ---
ED Nurse Note: Patient resting in the bed, he is calm and cooperative. Patient's HR remain at 93 bpm.
[2019-01-03] MEDS ORDERED: Zolpidem 5mg tab ORAL PRN (21:00)
[2019-01-03] MEDS ORDERED: dilTIAZem HCl CD 180mg cap ORAL SCH (21:00)
[2019-01-03] MEDS ORDERED: Levemir Flexpen SUBQ SCH (21:00)
--- NOTE | 2019-01-03 21:09 | NUR ---
NURSE NOTES: [facility] called, and gave report. awaitin for pt to arrive. room is ready, set up with suction.
--- NOTE | 2019-01-03 21:20 | NUR ---
ED Nurse Note: Patient was admited to SDU unit due to SVT. Ptient AAO x4, VSS at this time, skin is dry warm to touch. Patient was transfered to the unit via gurney, by ACLS protocol, with all belongings.
[2019-01-03 21:30] VITALS: BP 160/79
[2019-01-03] MEDS: Carvedilol 6.25mg Tab ORAL SCH (21:33)
[2019-01-03] MEDS: Atorvastatin 20mg tab ORAL SCH (21:33)
[2019-01-03] MEDS: HydrALAZINE 50mg tab ORAL SCH (21:34)
--- NOTE | 2019-01-03 21:35 | NUR ---
NURSE NOTES: Pt arrried to unit with Hortencia Armendariz and Lorena MCLEOD. pt appears stable. pt is alert and oriented times 4 and able to follow commands. pt has supervising film or videotape editor placed showing ST, no apparent acute cardiac distress noted. pt is room air, able to sat at 100%, no resp distress noted. pt bed is low and locked, armed, call light within easy reach, bed rails up times 2. will establish plan of care. Addendum: 01/04/19 at 0017 by MICHELL BEAVERS RN NURSE NOTES: Pt arrried to unit with Hortencia Armendariz and Lorena MCLEOD. pt appears stable. pt is alert and oriented times 4 and able to follow commands. pt has supervising film or videotape editor placed showing A FIB, no other acute cardiac distress noted. pt is room air, able to sat at 100%, no resp distress noted. pt bed is low and locked, armed, call light within easy reach, bed rails up times 2. will establish plan of care.
[2019-01-03] MEDS: Heparin 5000 units/ml inj SUBQ SCH (21:37)
--- NOTE | 2019-01-03 21:40 | NUR ---
NURSE NOTES: Pt declined to state full past medical history.
--- NOTE | 2019-01-03 21:45 | NUR ---
NURSE NOTES: Pt declined med reconcile.
--- NOTE | 2019-01-03 21:50 | NUR ---
NURSE NOTES: Pt refuses VRE and MRSA swab.
--- NOTE | 2019-01-03 22:00 | NUR ---
NURSE NOTES: FOR DIALYSIS IN THE MORNING 01/04/[address] WATSON .CALLED [facility] ,SPOKE WITH KAYLA.
--- NOTE | 2019-01-03 22:23 | NUR ---
NURSE NOTES: [facility] N[facility]SE DANETTE CALLED BACK UPDATED HIM ABOUT LAB RESULTS.HE SAID SOMEBODY WILL COME TO DO DIALYSIS TOMMOROW
--- NOTE | 2019-01-03 23:09 | NUR ---
NURSE NOTES: MD Ruby Called to check on Pt status. wanted to know if 2100 cardizem was given and to karina NASCIMENTO if heart rate changes or any other change in condition. will follow orders.
[2019-01-04] VITALS: BP 144/70
[2019-01-04 04:00] VITALS: BP 96/58
--- NOTE | 2019-01-04 04:44 | NUR ---
NURSE NOTES: Pt refused AM Lab work. supercharger repair supervisor Everardo vance.
[2019-01-04] MEDS: HydrALAZINE 50mg tab ORAL SCH ×3 (05:09→22:12)
[2019-01-04] MEDS: NovoLOG Insulin Flexpen SUBQ SCH ×5 (06:00→21:09)
[2019-01-04] MEDS ORDERED: Levothyroxine 25mcg tab ORAL SCH (06:30)
--- NOTE | 2019-01-04 07:00 | NUR ---
NURSE NOTES: Pt novolog was non admin due to pt Blood sugar finger stick test showing 47. pt is still alert and oriented times 4 and able to take oral juice. pt was fed 2 cups of apple juice. will monitor for changes.
--- NOTE | 2019-01-04 07:10 | NUR ---
HAND-OFF: Report given to Sharmin MUNOZ. Addendum: 01/04/19 at 0754 by MICHELL BEAVERS RN HAND-OFF: Report given to Sharmin MUNOZ. pt remains stable.
--- NOTE | 2019-01-04 07:11 | NUR ---
NURSE NOTES: Received patient in bed. In no apparent distress at this time. Awake, alert, verbal, able to make needs known. Call light within reach. For hemodialysis today. Contact isolation observed. Will continue plan of care.
--- NOTE | 2019-01-04 07:40 | NUR ---
NURSE NOTES: MD aguilar called. stated to place pt on DUO/NEB q4 hrs PRN. pt remains stable. will follow orders.
[2019-01-04 08:00] VITALS: BP 102/61
[2019-01-04] MEDS ORDERED: Albuterol/Ipratropium 3ml neb HHN PRN (08:00)
[2019-01-04] MEDS ORDERED: Aspirin Baby 81mg ORAL SCH (09:00)
[2019-01-04] MEDS ORDERED: Losartan 50mg tab ORAL SCH (09:00)
[2019-01-04] MEDS: Furosemide 80mg tab ORAL SCH ×2 (09:00→18:00)
--- NOTE | 2019-01-04 09:33 | History & Physical ---
History and Physical History & Physicial #[id number] aflutter RF HD obesity DM Fawn Lam DO Jan 04, 2019 09:33
[2019-01-04] MEDS: Heparin 5000 units/ml inj SUBQ SCH ×2 (09:39→21:12)
[2019-01-04] MEDS: Dicyclomine 10mg Cap ORAL SCH ×3 (09:56→18:00)
[2019-01-04] MEDS: Carvedilol 6.25mg Tab ORAL SCH ×2 (09:57→20:43)
--- NOTE | 2019-01-04 10:00 | NUR ---
NURSE NOTES: Patient refused to wear gown. Stays in bed with blanket on.
--- NOTE | 2019-01-04 11:35 | NUR ---
NURSE NOTES: Spoke to catherine from [facility] via telephone, asked what's the ETA of the dialysis nurse. Catherine said that someone will give the unit a call back and will let us know.
[2019-01-04 12:00] VITALS: BP 107/60
[2019-01-04 16:00] VITALS: BP 114/73
--- NOTE | 2019-01-04 16:00 | NUR ---
NURSE NOTES: [facility] hemodialysis nurse at bedside.
--- NOTE | 2019-01-04 16:15 | Consultation ---
DATE OF CONSULTATION: 01/04/2019 CONSULTING PHYSICIAN: Smith Tidwell M.D. REFERRING PHYSICIAN: Manish Oviedo M.D. CHIEF COMPLAINT/REASON FOR HOSPITALIZATION: The patient admitted with supraventricular tachycardia. HISTORY OF PRESENT ILLNESS: The patient is well known to me. He has end-stage renal disease, on dialysis and came to dialysis outpatient clinic on 01/03/2019 and noted to have a heart rate of 140 and I told them to send him right to the emergency room. However, he went home first and after discussion with his came to the hospital later. He was given IV Cardizem with slowing his rate in the emergency room and he subsequently became tachycardic again. PAST MEDICAL HISTORY: There is a history of severe hypertension, insulin dependent diabetes, history of prior pulmonary edema requiring intubation, history of asthma, hypothyroidism on replacement, anticoagulation with warfarin, prior paroxysmal atrial fibrillation. PAST SURGICAL HISTORY: Removal of half of pancreas, several toe amputations, below-knee amputation, eye surgeries for retinal detachment, laser surgery to the eye, dialysis fistula left arm, dialysis PermCath, and right below-knee amputation. HABITS: He is a nondrinker and nonsmoker. No use of illicit drugs. MEDICATIONS: Home medications are listed on the computer. He cannot verify the dose or difficulty remembering all of his medications. SYSTEM REVIEW: HEAD, EYES, EARS, NOSE, AND THROAT: He has history of diabetic retinopathy with stable vision. Hearing is good. ENDOCRINE: History of diabetes and hypothyroidism. PULMONARY: History of asthma. No TB. No hemoptysis. No fever. CARDIAC: History of arrhythmias, history of CHF, and severe hypertension. GASTROINTESTINAL: Prior history of diarrhea, moderate to severe. No recent nausea, vomiting, or diarrhea or abdominal pain. GENITOURINARY: No dysuria or hematuria. NEUROLOGIC: No CVA or seizures. He has diabetic neuropathy and Charcot joints. PHYSICAL EXAMINATION: GENERAL: The patient is alert, lying in bed, in no acute distress. VITAL SIGNS: Earlier blood pressure 198/108. Current vital signs are temperature 97.7, respirations 20, and blood pressure 102/61. Pulse oximetry 97% on room air. Heart rate 75. HEAD, EYES, EARS, NOSE AND THROAT: Sclerae are nonicteric. Ocular motions intact in all directions. Oral mucosa moist. NECK: No adenopathy. LUNGS: Clear. HEART: Rhythm is regular with ectopic beats. I hear no murmur or rub. ABDOMEN: Soft without organomegaly or masses. EXTREMITIES: No edema. There is a below-knee amputation. There is AV fistula in the left arm. PERTINENT LABORATORY DATA: White count 10.3, hemoglobin 13. Sodium 137, potassium 3.5, BUN 63, and creatinine 8.5. IMPRESSION: 1. Supraventricular tachycardia. 2. End-stage renal disease, status post missed dialysis. 3. Chronic diastolic congestive heart failure. 4. History of asthma. 5. History of hypertension. PLAN: I have put the patient on Cardizem and stopped his amlodipine, will hopefully get rate control. The patient has dialysis scheduled. I have discussed the case with Dr. Fawn Lam, who will be seeing him for primary and pulmonary. The patient wishes to be discharged as soon as possible and I will arrange outpatient followup for the above. Smith Tidwell M.D. DR: MARIO JOB#: [id number] CC:
[2019-01-04 17:00] LABS: ANION GAP 6 mmol/L (5-15); BLOOD UREA NITROGEN 48 mg/dL (7-18); CALCIUM 6.8 MG/DL (8.5-10.1); CARBON DIOXIDE 31 MMOL/L (21-32); CHLORIDE 96 MMOL/L (98-107); CREATININE 6.2 MG/DL (0.55-1.30); POTASSIUM 3.5 MMOL/L (3.5-5.1); SODIUM 133 MMOL/L (136-145)
--- NOTE | 2019-01-04 17:00 | NUR ---
NURSE NOTES: [facility] hemodialysis nurse left paper charting, and noted 3L HD output.
--- NOTE | 2019-01-04 17:25 | NUR ---
NURSE NOTES: Spoke with Dr. Tidwell via telephone. Informed that patient finished dialysis with 3L output. And troponin is trending up from 0.064 to 0.067. No new orders at this time. Dr. Tidwell said that patient is clear for discharge from nephrology stand point.
--- NOTE | 2019-01-04 17:26 | NUR ---
NURSE NOTES: Dr. Tidwell said that he can't give discharge order because he is not the primary/admitting Doctor. Charge nurse made aware.
--- NOTE | 2019-01-04 17:35 | NUR ---
NURSE NOTES: Left message to Dr. Lam. Awaiting for call back.
--- NOTE | 2019-01-04 17:43 | NUR ---
NURSE NOTES: Spoke with Isela Pina via telephone. Informed him regarding patients condition.
[2019-01-04] MEDS ORDERED: Warfarin Sodium 1mg ORAL SCH (18:00)
--- NOTE | 2019-01-04 18:00 | History and Physical Report ---
DATE OF ADMISSION: 01/03/2019 REASON FOR ADMISSION: Arrhythmia. HISTORY OF PRESENT ILLNESS: This is an elderly gentleman who was transferred in for evaluation of tachycardia from his dialysis center, and dialysis deferred and transferred to the facility. He was given diltiazem. His heart rate is now controlled. He does not have any reports of chest pain, shortness of breath, nausea, vomiting, or diarrhea. Very anxious for discharge today after dialysis. PAST MEDICAL HISTORY: Includes hypertension, hyperlipidemia, end-stage renal disease, and diabetes. PAST SURGICAL HISTORY: Right BKA. ALLERGIES: No known drug allergies. SOCIAL HISTORY: Negative for tobacco or drugs. MEDICATIONS: Pre-hospital medications and present medications were reviewed, reconciled, and documented in the electronic medical record by dose, frequency, and route. PHYSICAL EXAMINATION: GENERAL: At the time of my exam, he is alert. He is oriented. He is in no acute respiratory distress. VITAL SIGNS: He is afebrile, pulse is 75, respirations 20, and he is 100% on room air. HEENT: Normocephalic and atraumatic. Oropharynx is dry. Nasal mucosa is dry. NECK: Supple without lymphadenopathy. LUNGS: Decreased at bases. No wheezes present. HEART: Regular with an audible murmur. ABDOMEN: Soft, obese, and nontender. Positive bowel sounds. EXTREMITIES: No edema. NEUROLOGIC: No focal neurologic deficits. LABORATORY DATA: His white count is 10.3, hemoglobin 13, and platelets are 233,000; this was yesterday upon admission. Sodium is 137, potassium 3.5, chloride 98, bicarb 26, BUN 63, creatinine 8.5, and glucose was 49. His troponin was 0.064. ASSESSMENT AND PLAN: Atrial flutter, end-stage renal disease, and volume overload. The patient has been placed on p.o. Cardizem with rate control; this will be continued and the remaining of his home medications as well. May need to consider discontinuing any beta-agonist, which may precipitate or aggravate his tachyarrhythmias. DVT prophylaxis. Monitor his glucose levels and adjust as needed. Aspiration precautions and per Dr. Tidwell, the patient will be cleared for discharge post hemodialysis. Fawn Lam D.O. DR: Yony JOB#: [id number] CC:
--- NOTE | 2019-01-04 18:51 | NUR ---
NURSE NOTES: Left message again to Dr. Lam, awaiting for call back.
--- NOTE | 2019-01-04 19:17 | NUR ---
HAND-OFF: Report given to Elif Andrew RN.
--- NOTE | 2019-01-04 19:30 | NUR ---
NURSE NOTES: Received awake alert AO x4, anxious to go home. Afib 120-135/min on the monitor Bp 128/78. Pt ia a HD pt with shunt JOEL with good Bruit, Pt just had his HD today with 3L out.Pt been anxious to go home all day. Will continue to monitor.
[2019-01-04 20:00] VITALS: BP 128/78
--- NOTE | 2019-01-04 20:00 | NUR ---
NURSE NOTES: scrap worker Nemia called Dr Lam regarding pts discharge, but pts heart rate still on Afib 120-130s. Dr Lam hold pts discharge per SHANI Mcgee,. Will continue to monitor.
[2019-01-04] MEDS: Atorvastatin 20mg tab ORAL SCH (20:43)
[2019-01-04] MEDS ORDERED: dilTIAZem HCl CD 240mg cap ORAL SCH (21:00)
--- NOTE | 2019-01-04 22:23 | NUR ---
NURSE NOTES: Called Dr Kamran Ruby of pts heart rate Afib 130-140s. Sbp 125/88. Pt was so anxious to go home- awaiting for md to call back.
--- NOTE | 2019-01-04 22:35 | NUR ---
NURSE NOTES: Dr Kamran Ruby called back and spoke to SHANI Mcgee. Updated MD with pts condtion. With orders given. ( Katlin see order)
[2019-01-04] MEDS ORDERED: dilTIAZem HCl 50mg/10ml Inj IVP SCH ×2 (22:45→23:00)
[2019-01-05] VITALS: BP 118/73
--- NOTE | 2019-01-05 00:11 | NUR ---
NURSE NOTES: Called Dr Lam With regards to pt signing AMA(agains medical advice).
--- NOTE | 2019-01-05 00:12 | NUR ---
NURSE NOTES: Left message to DR Kamran Ruby that Cardizem 15mg ivp was not given due to pt wants to go AMA.
--- NOTE | 2019-01-05 00:20 | NUR ---
NURSE NOTES: Dr Coco Lam called back and was aware that pt wants to be discharge against medical advice. Updated md with pts condition Bp 118/73, AFib rate of 80 T- 98.2. aware also Dr Lam that there is a pending Cardizem 15mg iv ordered by Dr. Kamran Ruby that wasnt given due to pt wants to go AMA. DR Coco lam verbalized not to give the cardizem 15mg IV , if pt wants to go AMA. md also verbalized that she is not comfortable discharging the pt. Pts (vikash) at bedside . Both pt and his were well explained the risk of going AMA especially the irregularity of pts heart rate.
--- NOTE | 2019-01-05 00:40 | NUR ---
NURSE NOTES: Against medical advice form was signed by the pt. in presence of his . Heplock Rt AC was discontinued and pressure drsg was applied. til no more blood coming from the IV site, then clean drg were re applied. Telemetry portable monitor was also discontinued.
--- NOTE | 2019-01-05 00:50 | NUR ---
NURSE NOTES: Pt walk out from his room accompanied by the . Incident report was filed
--- NOTE | 2019-01-06 02:45 | Consultation ---
DATE OF CONSULTATION: 01/03/2019 CARDIOLOGY CONSULTATION CONSULTING PHYSICIAN: Eloy Ruby M.D. REQUESTING PHYSICIAN: Smith Tidwell M.D. REASON: Supraventricular tachyarrhythmias. HISTORY OF PRESENT ILLNESS: This is a 68-year-old male with end-stage renal disease, he is on hemodialysis three times a week. His dialysis session was not performed today due to a rapid heart rate noted by staff. He was referred to the emergency room. He was noted to have rapid atrial fibrillation. He denies any chest pain or palpitations. No shortness of breath. He has not had any recent changes in his medications. He has not missed any prior dialysis session and he has been compliant with his medication and dietary restrictions. In the emergency room, he was given intravenous IV diltiazem with improvement in ventricular rate. PAST MEDICAL HISTORY: Hypertension, hypertensive heart disease, type 2 diabetes mellitus, end-stage renal disease on hemodialysis, hyperlipidemia, peripheral artery disease with right [id number] amputation, left upper extremity AV fistula, history of partial pancreatic resection, history of lung abscess, and paroxysmal atrial fibrillation. ALLERGIES: None. MEDICATIONS: Prior to admission, reviewed and reconciled. FAMILY HISTORY: Noncontributory. SOCIAL HISTORY: Denies smoking, alcohol, or substance abuse. REVIEW OF SYSTEMS: The patient is on chronic anticoagulation with warfarin. He has not had any recent fever, chills, or upper respiratory infection. He is not sure whether he received his influenza vaccination. There is no history of seizure or stroke. He is unaware of any prior heart attacks. He has not had any recent hospitalization. PHYSICAL EXAMINATION: VITAL SIGNS: Temperature 99, blood pressure 135/82, heart rate 141, respiratory rate 18. HEENT: Conjunctivae pink. Oropharynx clear. NECK: Supple. No jugular venous distention. No accessory muscle use. LUNGS: With clear breath sounds. CARDIAC: Irregularly irregular rhythm. Rapid rate. Normal S1, S2. No appreciable murmur. ABDOMEN: Soft, nontender. Palpable bruit over the left upper extremity. EXTREMITIES: No edema. LABORATORY AND DIAGNOSTIC DATA: White count 10, hemoglobin 13. Sodium 137, potassium 3.5, bicarbonate 26, glucose 49. Pro-natriuretic peptide 32,000. Troponin 0.064. Chest x-ray with small left pleural effusion and atelectasis. EKG, atrial fib/flutter with variable block, right bundle-branch block, occasional ventricular ectopics. IMPRESSION: 1. Paroxysmal atrial fibrillation and flutter now with rapid ventricular rate. 2. Acute myocardial ischemia, secondary to above. 3. Acute on chronic diastolic congestive heart failure. 4. Hypertensive heart disease. 5. Insulin-requiring diabetes mellitus. 6. End-stage renal disease. 7. Right BKA. PLAN: 1. Initiate diltiazem. 2. Advanced dosing for rate control. 3. Continue full anticoagulation. INR goal of 2 to 3. 4. Hemodialysis with ultrafiltration for volume management. 5. Follow up troponin level. 6. Low-dose aspirin pending. 7. Repeat troponin level. Eloy Ruby M.D. DR: SHWETA JOB#: [id number] CC:
--- NOTE | 2019-01-06 02:45 | Progress Note ---
DATE: 01/04/2019 CARDIOLOGY PROGRESS NOTE SUBJECTIVE: The patient is status post hemodialysis with ultrafiltration. He is anxious to leave the hospital. He still has episodes of rapid atrial fibrillation and diltiazem dosing is being advanced. He has also been given IV diltiazem for breakthrough rapid rate. He denies chest pain, palpitations, or shortness of breath. OBJECTIVE: VITAL SIGNS: Blood pressure 128/78, pulse 122, respiratory rate 18, and afebrile. LUNGS: Clear. Palpable bruit over the left upper extremity fistula. CARDIAC: Irregularly irregular. Normal S1 and S2 with no appreciable murmur. ABDOMEN: Soft. EXTREMITIES: Right BKA. No edema. LABORATORY DATA: Troponin 0.067. IMPRESSION: 1. Paroxysmal atrial fibrillation with rapid ventricular response. 2. End-stage renal disease. 3. Acute on chronic diastolic congestive heart failure. 4. Acute myocardial ischemia. 5. Warfarin-associated coagulopathy. PLAN: 1. Encouraged the patient to stay in hospital until rate control is better achieved. 2. Continue up titration of diltiazem, may need to add additional beta-evens. 3. Continue full anticoagulation with warfarin to INR goal of 2 to 3. 4. Ultrafiltration for volume management. 5. Outpatient myocardial perfusion scan can be obtained if not recently done and the patient does not want to pursue this in the hospital setting. Eloy Ruby M.D. DR: PANFILO JOB#: [id number] CC:
--- NOTE | 2019-01-07 11:04 | NUR ---
*-* INSURANCE *-* ALL CLINICALS HAVE BEEN FAXED TO: [facility] Ref#[id number] CM; Haydee ph#[phone] option 1 fax#[phone]
--- NOTE | 2019-01-07 12:48 | Discharge Summary ---
Charu Juarez [employer] SENIOR SERGEANT 01/07/19 1248: Discharge Summary Discharge Summary _ DATE OF ADMISSION: 01/03/2019 DATE OF DISCHARGE: 01/05/2019 Patient left AGAINST MEDICAL ADVICE REASON FOR ADMISSION: 68 years old male with past medical history of hypertension, end-stage renal disease on hemodialysis, diabetes mellitus, hyperlipidemia, peripheral vascular disease with right BKA, was scheduled for hemodialysis earlier that day , however hemodialysis was canceled due to tachycardia . Patient subsequently was referred to emergency room for further evaluation. Upon evaluation patient was tachycardic with heart rate 141. EKG revealed sinus tachycardia, no obvious ST segment elevation. Multiply PAC. Patient received IV diltiazem in emergency department and loaded with oral 60 mg diltiazem. Repeated EKG showed atrial flutter with variable conduction. Aberrancy with premature atrial ventricular complexes. Otherwise nonischemic. Right bundle branch block pattern persisted. Laboratory work-up revealed minimally elevated troponin 0.064. pro BNP 82015. BUN 63, creatinine 8.5, consistent with known history of end-stage renal disease. No leukocytosis , hemoglobin 13, hematocrit 38.6. Chest x-ray revealed bibasilar opacity likely representing atelectasis, but component of pneumonia cannot be excluded. Small left pleural effusion. Patient subsequently admitted to telemetry floor for further management . CONSULTANTS: offset printer Dr Ruby route supervisor Dr Tidwell HOSPITAL COURSE: Patient admitted to telemetry floor. Computer Systems Analyst and route supervisor followed. Patient was continued on diltiazem with plan to advance dose for rate control. Patient started on diuresis along with hemodialysis. Hemodialysis with ultrafiltration provided as per route supervisor with close monitoring of volume and renal parameters. Repeated troponin repeated troponin was still minimally elevated no peak no jorge. Patient started on low-dose of aspirin.. Heart rate continued to be elevated. Low-dose of beta-evens was added for better heart rate control. Supplemental oxygen provided to keep pulse oximetry above 92%. Symbicort continued. DVT prophylaxis provided. Blood pressure was managed with hydralazine , losartan , Cardizem. and beta- evens. Statin continued. Blood sugar was managed with long-acting Levemir and sliding scale of insulin. On 01/05 patient decided to leave AGAINST MEDICAL ADVICE. The risks and consequences of signing AGAINST MEDICAL ADVICE were discussed with patient in detail. Patient verbalized understanding, nevertheless signed AMA form and left. FINAL DIAGNOSES: Paroxysmal atrial fibrillation with rapid ventricular response Acute myocardial ischemia /secondary to paroxysmal atrial fibrillation/flutter with rapid ventricular response Acute on chronic diastolic congestive heart failure Hypertensive heart disease Diabetes mellitus End-stage renal disease, on hemodialysis Right BKA I have been assigned to dictate discharge summary for this account. I was not involved in the patient's management. Manish Oviedo MD 01/07/19 1337: Discharge Summary Discharge Summary _ dc 01/05/19 not seen by Charu Constantino NP Jan 07, 2019 12:48 Manish Oviedo MD Jan 07, 2019 13:37
== END 2019-01-05 01:00 | disposition left against medical advice (07) | DRG 308 ==
LOC: EMR 16:51 → 2W 20:26 → EDBEDREQ 20:42 → EDBEDREQSVC 20:42 → EDBEDREQ 20:48
PROC: 5A1D70Z Performance of Urinary Filtration, Intermittent, Less than 6 Hours Per Day (ICD-10-PCS; principal; 2019-01-04)
DX: I48.0 Paroxysmal atrial fibrillation (principal); N18.6 End stage renal disease; I50.33 Acute on chronic diastolic (congestive) heart failure; I13.2 Hypertensive heart and chronic kidney disease with heart failure and with stage 5 chronic kidney disease, or end stage renal disease; I48.92 Unspecified atrial flutter; I51.3 Intracardiac thrombosis, not elsewhere classified; E66.9 Obesity, unspecified; E11.22 Type 2 diabetes mellitus with diabetic chronic kidney disease; Z99.2 Dependence on renal dialysis; Z89.511 Acquired absence of right leg below knee; E87.79 Other fluid overload; E78.5 Hyperlipidemia, unspecified; I47.1 Supraventricular tachycardia; Z79.4 Long term (current) use of insulin; Z90.411 Acquired partial absence of pancreas; J45.909 Unspecified asthma, uncomplicated; I73.9 Peripheral vascular disease, unspecified; Z79.01 Long term (current) use of anticoagulants
CPT/HCPCS: 36415; 71045; 80048; 80053; 82962; 83735; 83880; 84443; 84484; 85025; 93005; 94640; 96374; 96375; 99291; J1815; J7620

== ENCOUNTER 2019-01-20 14:36 | Inpatient (IN) | payer OTHER, MEDICARE ==
[~2019-01-20] VITALS: Ht 172.7 cm; Wt 97.1 kg
[~2019-01-20 14:36] MED LIST changes: -Heparin Sod 1000 units/ml 10ml IV PRN
--- NOTE | 2019-01-20 14:45 | NUR ---
ED Nurse Note: Patient was brought in by ambulance RA 34 from home, according to the , she found the patient on the ground, altered. per ems, the sugar on the scene was <20, critically low, ems given 1mg of glucagon. upon arrival patient's blood sugar was 76, notified to Dr. Luther. patient has left upper arm AV shunt, bruit and thrill noted. patient placed on a hospital gown, patient had 1 soft bm, changed and cleaned patient. patient on a federal aid coordinator. at bedside. ERMAntonio Luther at bedside.
--- NOTE | 2019-01-20 14:45 | NUR ---
\ED Nurse Note:
[2019-01-20 15:13] VITALS: BP 135/101
--- NOTE | 2019-01-20 15:20 | NUR ---
ED Nurse Note: patient taken to CT scan.
[2019-01-20] MEDS ORDERED: RENVELA0.8 GM ORAL (15:35)
--- NOTE | 2019-01-20 15:42 | Emergency Room Report ---
History of Present Illness General Chief Complaint: Generalized Weakness Source: Patient, Family Member, EMS Present Illness HPI Patient was found by his on the ground altered reports that she went to work at approximately 9 in the morning And the was getting up to get breakfast and was fully oriented Upon return the patient was disoriented and was found to have a low glucose level by paramedics initially patient Was somnolent and slow to respond Later after further glucose treatment patient denies any chest pain or shortness of breath denies any focal weakness patient was due for dialysis today however missed his dialysis Allergies: Coded Allergies: No Known Allergies (Unverified , 11/14/16) Patient History Past Medical History: see triage record Reviewed Nursing Documentation: PMH: Agreed; PSxH: Agreed Nursing Documentation-PMH Past Medical History: No History, Except For Hx Cardiac Problems: Yes - HTN, CHF Hx Hypertension: Yes Hx Asthma: Yes Hx Diabetes: Yes Hx Cancer: No Hx Gastrointestinal Problems: No Hx Dialysis: Yes - LUE graft/port; Dialysis M, W, F Hx Neurological Problems: No Review of Systems All Other Systems: negative except mentioned in HPI Physical Exam Vital Signs Date Time Temp Pulse Resp B/P (MAP) Pulse Ox O2 Delivery O2 Flow Rate FiO2 01/20/19 14:37 100 20 120/82 (95) 98 Room Air Sp02 EP Interpretation: reviewed, normal General Appearance: no apparent distress Head: normocephalic, atraumatic Eyes: bilateral eye PERRL, bilateral eye EOMI ENT: normal pharynx, other - However patient does have some increased edema around the orbital area Neck: supple Respiratory: lungs clear, no respiratory distress, no retraction Cardiovascular #1: regular rate, rhythm Gastrointestinal: non tender Musculoskeletal: normal inspection Neurologic: alert, oriented x3 - Please note that initially patient was sluggish and slow to respond however has become more oriented and responds appropriately at this time, Psychiatric: normal inspection Skin: no rash Procedures Critical Care Time Critical Care Time 35 minutes for multiple re-evaluations concerning presentation and multiple rechecks of neurological exam concerning for intracranial emergency not including any procedural time Medical Decision Making Diagnostic Impression: Primary Impression: Hypoglycemia Additional Impressions: Renal failure CHF (congestive heart failure) UTI (urinary tract infection) ER Course Given the patient's history and presentation multiple differentials and consideration Including but not limited to infectious process, inappropriate medication dosing , renal failure Patient has responded well to dextrose and becoming more alert temperature was also initially low likely secondary to the Hypoglycemia patient's urine does show infectious process as well Antibiotics are initiated Patient does show signs of Some fluid overload and will require further inpatient dialysis Labs Test 01/20/19 16:45 01/20/19 18:10 White Blood Count 21.8 K/UL (4.8-10.8) Red Blood Count 3.51 M/UL (4.70-6.10) Hemoglobin 10.9 G/DL (14.2-18.0) Hematocrit 32.9 % (42.0-52.0) Mean Corpuscular Volume 94 FL (80-99) Mean Corpuscular Hemoglobin 31.0 PG (27.0-31.0) Mean Corpuscular Hemoglobin Concent 33.0 G/DL (32.0-36.0) Red Cell Distribution Width 15.2 % (11.6-14.8) Platelet Count 180 K/UL (150-450) Mean Platelet Volume 5.1 FL (6.5-10.1) Neutrophils (%) (Auto) % (45.0-75.0) Lymphocytes (%) (Auto) % (20.0-45.0) Monocytes (%) (Auto) % (1.0-10.0) Eosinophils (%) (Auto) % (0.0-3.0) Basophils (%) (Auto) % (0.0-2.0) Prothrombin Time 19.4 SEC (9.30-11.50) Prothromb Time International Ratio 1.9 (0.9-1.1) Activated Partial Thromboplast Time 39 SEC (23-33) Sodium Level 143 MMOL/L (136-145) Potassium Level 3.1 MMOL/L (3.5-5.1) Chloride Level 104 MMOL/L (98-107) Carbon Dioxide Level 23 MMOL/L (21-32) Anion Gap 16 mmol/L (5-15) Blood Urea Nitrogen 71 mg/dL (7-18) Creatinine 8.6 MG/DL (0.55-1.30) Estimat Glomerular Filtration Rate 7.5 mL/min (>60) Glucose Level 177 MG/DL (74-106) Lactic Acid Level 0.70 mmol/L (0.4-2.0) Calcium Level 6.0 MG/DL (8.5-10.1) Phosphorus Level 8.9 MG/DL (2.5-4.9) Magnesium Level 2.0 MG/DL (1.8-2.4) Total Bilirubin 0.5 MG/DL (0.2-1.0) Aspartate Amino Transf (AST/SGOT) 27 U/L (15-37) Alanine Aminotransferase (ALT/SGPT) 32 U/L (12-78) Alkaline Phosphatase 102 U/L (46-116) Total Creatine Kinase 334 U/L (26-308) Creatine Kinase MB 5.3 NG/ML (0.0-3.6) Creatine Kinase MB Relative Index 1.5 Troponin I 0.128 ng/mL (0.000-0.056) Pro-B-Type Natriuretic Peptide 55212 pg/mL (0-125) Total Protein 7.6 G/DL (6.4-8.2) Albumin 3.3 G/DL (3.4-5.0) Globulin 4.3 g/dL Albumin/Globulin Ratio 0.8 (1.0-2.7) Lipase 25 U/L (73-393) Urine Color Pale yellow Urine Appearance Clear Urine pH 5 (4.5-8.0) Urine Specific Emerson 1.020 (1.005-1.035) Urine Protein 4+ (NEGATIVE) Urine Glucose (UA) 1+ (NEGATIVE) Urine Ketones Negative (NEGATIVE) Urine Blood 3+ (NEGATIVE) Urine Nitrite Negative (NEGATIVE) Urine Bilirubin Negative (NEGATIVE) Urine Urobilinogen Normal MG/DL (0.0-1.0) Urine Leukocyte Esterase 1+ (NEGATIVE) Urine RBC 2-4 /HPF (0 - 0) Urine WBC 5-10 /HPF (0 - 0) Urine Squamous Epithelial Cells None /LPF (NONE/OCC) Urine Bacteria Few /HPF (NONE) EKG Diagnostic Results Rate: tachycardiac Rhythm: other - A. fib ST Segments: other - Nonspecific ST and T wave changes Rhythm Strip Diag. Results EP Interpretation: yes Rate: 110 Rhythm: no PVC's, no ectopy, other - A. fib RVR Chest X-Ray Diagnostic Results Chest X-Ray Diagnostic Results : Chest X-Ray Ordered: Yes # of Views/Limited/Complete: 1 View Indication: Chest Pain EP Interpretation: Yes Interpretation: no consolidation, no pneumothorax, other - Cardio megaly, pulmonary congestion Impression: Other - Pulmonary congestion Electronically Signed by: Payton Luther DO CT/MRI/US Diagnostic Results CT/MRI/US Diagnostic Results : Impression CT head:NAD Last Vital Signs Date Time Temp Pulse Resp B/P (MAP) Pulse Ox O2 Delivery O2 Flow Rate FiO2 01/20/19 15:23 114 20 Room Air 01/20/19 15:13 135/101 99 Status: improved Disposition: ADMITTED INPATIENT Condition: Serious Scripts Amoxicillin* (AMOXIL*) 250 Mg Capsule 250 MG ORAL Q24H, #5 CAP Prov: Manish Oviedo MD 01/22/19 Referrals: NON PHYSICIAN (PCP) Payton Luther DO Jan 20, 2019 15:42
--- NOTE | 2019-01-20 15:43 | NUR ---
ED Nurse Note: patient came back from CT scan.
--- NOTE | 2019-01-20 15:46 | NUR ---
ED Nurse Note: lab called for labdraw.
--- NOTE | 2019-01-20 15:48 | Diagnostic Imaging Report ---
Indication: Chest pain Comparison: 01/03/2019 A single view chest radiograph was obtained. Findings: Interstitial edema prominent pulmonary vascularity and heart size are demonstrated. IMPRESSION: Congestive heart failure
--- NOTE | 2019-01-20 16:12 | Diagnostic Imaging Report ---
Indication: Altered mental status Technique: Contiguous 5 mm thick transaxial imaging of the head obtained in a Siemens Sensation [address] scanner. Soft tissue and bone windows generated. Automatic Exposure Control was utilized. Total Dose length Product (DLP): 1334.[address] Dose Index Volume (CTDIvol): 60 mGy Comparison: none Findings: There is mild prominence of the ventricles, basal cisterns, and cerebral sulci consistent with atrophy. Mild, nonspecific, white matter hypoattenuation is noted throughout the brain consistent with chronic small vessel disease. There is no midline shift, edema, acute hemorrhage, mass effect, or abnormal extra-axial fluid collections. Bones are unremarkable. Impression: No acute intracranial bleed, mass effect or edema. Mild atrophy of the brain. Nonspecific white matter hypoattenuation probably due to chronic small vessel disease. The CT scanner at [facility] is accredited by the [employer] [place] [employer] and the scans are performed using dose optimization techniques as appropriate to a performed exam including Automatic Exposure control.
--- NOTE | 2019-01-20 16:28 | NUR ---
ED Nurse Note: Called lab for lab draw 3x. Spoke with Lu states they're really backed up and will be another 15 min.
--- NOTE | 2019-01-20 16:50 | NUR ---
ED Nurse Note: Lab came and delores blood. Labs sent down.
[2019-01-20 17:17] LABS: INR 1.9 (0.9-1.1)
[2019-01-20 17:20] LABS: HEMATOCRIT 32.9 % (42.0-52.0); HEMOGLOBIN 10.9 G/DL (14.2-18.0); MEAN CORPUSCULAR VOLUME 94 FL (80-99); PLATELET COUNT 180 K/UL (150-450); RED BLOOD COUNT 3.51 M/UL (4.70-6.10); RED CELL DISTRIBUTION WIDTH 15.2 % (11.6-14.8); WHITE BLOOD COUNT 21.8 K/UL (4.8-10.8)
--- NOTE | 2019-01-20 17:23 | NUR ---
ED Nurse Note: Pt provided sandwich and apple juice. Dr Luther states ok to give.
[2019-01-20 17:32] LABS: ALANINE AMINOTRANSFERASE 32 U/L (12-78); ALBUMIN 3.3 G/DL (3.4-5.0); ALBUMIN/GLOBULIN RATIO 0.8 (1.0-2.7); ALKALINE PHOSPHATASE 102 U/L (46-116); ANION GAP 16 mmol/L (5-15); ASPARTATE AMINO TRANSFERASE 27 U/L (15-37); BILIRUBIN,TOTAL 0.5 MG/DL (0.2-1.0); BLOOD UREA NITROGEN 71 mg/dL (7-18); CARBON DIOXIDE 23 MMOL/L (21-32); CHLORIDE 104 MMOL/L (98-107); CKMB 5.3 NG/ML (0.0-3.6); CREATINE KINASE 334 U/L (26-308); CREATININE 8.6 MG/DL (0.55-1.30); PHOSPHORUS 8.9 MG/DL (2.5-4.9); POTASSIUM 3.1 MMOL/L (3.5-5.1); SODIUM 143 MMOL/L (136-145)
[2019-01-20 17:56] VITALS: BP 134/99
[2019-01-20 18:25] LABS: APPEARANCE,URINE CLEAR; BILIRUBIN, URINE NEGATIVE (NEGATIVE); COLOR,URINE PALE YELLOW; GLUCOSE, URINE (UA) 1+ (NEGATIVE); KETONES,URINE NEGATIVE (NEGATIVE); LEUKOCYTE ESTERASE ,URINE 1+ (NEGATIVE); NITRITE,URINE NEGATIVE (NEGATIVE); PH,URINE 5 (4.5-8.0); PROTEIN,URINE 4+ (NEGATIVE); UROBILINOGEN,URINE NORMAL MG/DL (0.0-1.0)
[2019-01-20] MEDS ORDERED: cefTRIAXone 1 GM in NS 55 ML IVPB ONE (18:45)
[2019-01-20] MEDS ORDERED: dilTIAZem HCl 25mg/5ml Inj IVP ONE (18:45)
[2019-01-20 19:02] VITALS: BP 134/99
--- NOTE | 2019-01-20 19:06 | NUR ---
ED Nurse Note: Report given to Mary MCLEOD in SDU.
--- NOTE | 2019-01-20 19:06 | NUR ---
HAND-OFF: Report given to Rose MCLEOD.
--- NOTE | 2019-01-20 19:15 | NUR ---
TRANSFER TO FLOOR: Patient transferred to as ordered, per Dr Dr Payne. Report given to SHANI Hernandez. Belongings and medications given to . Family and or S/O informed of transfer.
--- NOTE | 2019-01-20 19:20 | NUR ---
NURSE NOTES: Received patient from SHANI Rose. patient is AO X4, denies pain at this time. patient is on room air, no s/sx of respiratory distress noted at this time. cardiac exercise specialist applied to patient. cardiac exercise specialist shows atrial flutter at this time, no acute cardiac distress noted. new gown applied to patient. skin intact, right BKA and left toe amputation noted, as well as previous surgical scar on abdomen. R hand 20 g IV site patent and intact, asymptomatic. AV fistula noted on JOEL, thrill and bruit present. belongings reviewed with RN and patient. bed in lowest position and locked, siderails up X3, call light within reach. will continue to monitor. will contact MD for admission orders.
--- NOTE | 2019-01-20 19:35 | NUR ---
NURSE NOTES: called and left message for Dr. Oviedo regarding admission orders. awaiting call back.
[2019-01-20 19:50] VITALS: BP 129/79
--- NOTE | 2019-01-20 19:55 | NUR ---
NURSE NOTES: per Dr. Oviedo, contact control panel tester MD Dr. Tidwell for admission orders.
--- NOTE | 2019-01-20 20:05 | NUR ---
NURSE NOTES: called and received admission orders from Dr. Tidwell. will carry out.
[2019-01-20] MEDS ORDERED: DILTIAZEM 24HR240 M1 PO (20:32)
[2019-01-20] MEDS ORDERED: DIPHENOXYLATE-1 EACH PO (20:32)
[2019-01-20] MEDS ORDERED: QVAR7.3 GM INH (20:32)
[2019-01-20] MEDS ORDERED: LANTUS SOL100 UNIT/1 SUBQ (20:43)
[2019-01-20] MEDS ORDERED: Lomotil 2.5mg tab ORAL PRN (20:45)
[2019-01-20] MEDS ORDERED: dilTIAZem HCl CD 240mg cap ORAL SCH (20:45)
[2019-01-20] MEDS ORDERED: Carvedilol 25mg Tab ORAL SCH (21:00)
[2019-01-20] MEDS ORDERED: Warfarin Sodium 3mg ORAL SCH (22:00)
[2019-01-20] MEDS ORDERED: HydrALAZINE 50mg tab ORAL SCH (22:00)
[2019-01-20] MEDS: Levemir Flexpen SUBQ SCH (22:15)
[2019-01-21] VITALS: BP 135/85
[2019-01-21] MEDS: Carvedilol 25mg Tab ORAL SCH ×3 (00:48→21:34)
[2019-01-21] MEDS ORDERED: Ipratropium 0.02% Inh Soln 2.5ml UD HHN ONE (01:30)
[2019-01-21] MEDS ORDERED: dilTIAZem HCl CD 240mg cap ORAL ONE (01:30)
[2019-01-21] MEDS ORDERED: dilTIAZem HCl 50mg/10ml Inj IVP ONE (01:30)
[2019-01-21] MEDS: Nitroglycerin 2% oint pkt TOPIC SCH ×4 (02:12→18:00)
[2019-01-21] MEDS ORDERED: dilTIAZem HCl 25mg/5ml Inj IVP ONE (02:15)
--- NOTE | 2019-01-21 02:30 | Consultation ---
DATE OF CONSULTATION: 01/20/2019 CARDIOLOGY CONSULTATION CONSULTING PHYSICIAN: Eloy Ruby M.D. REQUESTING PHYSICIAN: Smith Tidwell M.D. REASON FOR CONSULTATION: Rapid atrial fibrillation. HISTORY OF PRESENT ILLNESS: This is a 68-year-old male, he has a known history of atrial fibrillation. He was hospitalized here about two months ago and started on additional therapy for rate control as well as cardioembolic prophylaxis. He is compliant with medications. He also has dialysis on a three times a week regular schedule that he is compliant with. The patient was found by his on the ground altered and confused when she left the house around 9 in the morning and the patient was having breakfast. When she returned he was found to be confused and had a low glucose level when paramedics arrived. He was somnolent and slow to respond, but improved with a glucose infusion. The patient missed his dialysis session, which is quite an unusual event. He was brought to the emergency room. He was found to be in rapid atrial fibrillation. I have been asked to assist with cardiovascular care. PAST MEDICAL HISTORY: Hypertension, diastolic dysfunction with congestive heart failure, end-stage renal disease, type 2 diabetes mellitus, left upper extremity AV graft, bronchospastic lung disease, history of partial pancreatic resection, history of lung abscess, peripheral artery disease with right BKA, and paroxysmal atrial fibrillation ALLERGIES: None. MEDICATIONS: Reviewed and reconciled. FAMILY HISTORY: Noncontributory. SOCIAL HISTORY: Negative for smoking, alcohol, or substance abuse. REVIEW OF SYSTEMS: The patient is on warfarin, his INR was 1.9 in the emergency room. His most recent echocardiogram revealed normal ejection fraction. There is no history of flow-limiting coronary disease. His heart failure is managed with ultrafiltration, but he does produce some urine and still takes diuretics. PHYSICAL EXAMINATION: VITAL SIGNS: Blood pressure 135/80, pulse 140, respiratory rate 20, and afebrile. Palpable bruit over AV fistula. Jugular venous pressure elevated. LUNGS: Diminished breath sounds with rales and few wheezes. CARDIAC: Irregularly irregular rhythm. Normal S1 and S2 with a 1/6 systolic murmur at apex. ABDOMEN: Soft. EXTREMITIES: No edema. NEUROLOGIC: Currently with mentation. LABORATORY DATA: White count 21 and hemoglobin 10.9. Potassium 3.1, BUN 71, and creatinine 8.6. Troponin 0.128. Lactic acid 0.7. Pro-natriuretic peptide 34,000. CK-MB index is normal. CK-MB is slightly elevated. IMPRESSION: 1. Paroxysmal atrial fibrillation now with rapid ventricular response. 2. Acute myocardial ischemia and possible [id number] myocardial infarction. 3. Acute on chronic diastolic congestive heart failure. 4. End-stage renal disease with missed dialysis session today. 5. Hypertensive heart disease with controlled blood pressure. 6. Mild hypokalemia in the setting of end-stage renal disease. 7. Altered mentation and metabolic encephalopathy due to hypoglycemia. 8. Leukocytosis, may suggest sepsis. PLAN: 1. Discussed with nursing staff. 2. IV diltiazem will be given now in addition to his evening doses of the oral medications namely carvedilol and diltiazem CD. 3. He is scheduled for ultrafiltration with his hemodialysis session by Dr. Tidwell. 4. Serial troponins will be obtained. 5. Anti-ischemic measures have been added including topical nitrates. Eloy Ruby M.D. DR: PANFILO JOB#: [id number] CC:
[2019-01-21 04:00] VITALS: BP 105/65
[2019-01-21 05:55] LABS: APPEARANCE,URINE CLEAR; BILIRUBIN, URINE NEGATIVE (NEGATIVE); GLUCOSE, URINE (UA) 2+ (NEGATIVE); KETONES,URINE NEGATIVE (NEGATIVE); LEUKOCYTE ESTERASE ,URINE 1+ (NEGATIVE); NITRITE,URINE NEGATIVE (NEGATIVE); PH,URINE 5 (4.5-8.0); PROTEIN,URINE 3+ (NEGATIVE); UROBILINOGEN,URINE NORMAL MG/DL (0.0-1.0)
[2019-01-21] MEDS: HydrALAZINE 50mg tab ORAL SCH ×2 (06:00→14:00)
[2019-01-21 06:11] LABS: COLOR,URINE YELLOW
[2019-01-21] MEDS: Levothyroxine 25mcg tab ORAL SCH (06:29)
[2019-01-21] MEDS: NovoLOG Insulin Flexpen SUBQ SCH ×4 (06:30→21:36)
--- NOTE | 2019-01-21 07:36 | NUR ---
HAND-OFF: Report given to SHANI Beck. patient is in stable condition.
[2019-01-21 08:00] VITALS: BP 92/60
[2019-01-21] MEDS: Qvar 40mcg Inhaler 6.8 gm INH SCH ×2 (08:48→19:20)
[2019-01-21] MEDS ORDERED: Heparin Sod 1000 units/ml 10ml IV PRN (09:00)
[2019-01-21] MEDS ORDERED: Losartan 50mg tab ORAL SCH (09:00)
[2019-01-21] MEDS: Albuterol/Ipratropium 3ml neb HHN PRN ×2 (09:14→15:40)
[2019-01-21] MEDS: dilTIAZem HCl CD 240mg cap ORAL SCH ×2 (09:18→17:26)
[2019-01-21] MEDS: Furosemide 80mg tab ORAL SCH ×2 (09:19→17:26)
[2019-01-21] MEDS: Aspirin EC 81mg tab ORAL SCH (09:20)
[2019-01-21 12:00] VITALS: BP 110/66
--- NOTE | 2019-01-21 13:07 | Cardiology Report ---
APPROVED REPORT EKG Measurement Heart [id number] Atrial flutter with variable AV block with premature ventricular or aberrantly conducted complexes Left axis deviation Right bundle branch block Abnormal ECG
--- NOTE | 2019-01-21 15:01 | NUR ---
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 97.8 HR 114 RR 14 B/P 120/82 WBC 21.8 K 3.1 AGAP 16 TCK 334 TROP 0.128 BNP [id number] URINE + PROTEIN,GLUCOSE,LEUKOCYTE ESTERASE,RBC,WBC,BACTERIA IS: IV D50 GIVEN ADMITTED TO STEP DOWN @ 1915 STEP DOWN STATUS DCP RETURN HOME
--- NOTE | 2019-01-21 15:49 | History & Physical ---
History and Physical History & Physicial HISTORY OF PRESENT ILLNESS: The patient is a 68-year-old man who was admitted with hypoglycemia. He reports his BS was >500 and he took 40u of regular insulin instead of his usual 12-14u with each meal. He was found later by his to be lethargic and confused with a BS <20. He responded to glucose infusion. He had rapid A fib and now is in A flutter with rate controlled. He missed dialysis yesterday. He feels SOB and has CHF on CXR. PAST MEDICAL HISTORY: Includes renal failure, on dialysis, longstanding asthma, hypertension, hyperlipidemia, deep vein thrombosis, diabetes, hypothyroidism, paroxysmal atrial fibrillation. MEDICATIONS: reviewed ALLERGIES: None. REVIEW OF SYSTEMS: Otherwise unremarkable. SOCIAL HISTORY: He is not a smoker. He does not use alcohol to excess. PHYSICAL EXAMINATION: VITAL SIGNS: stable, no high fever. GENERAL: The patient is overweight. SKIN: Warm and dry. HEENT: Head is normocephalic. NECK: No jugular venous distention. No lymphadenopathy. CHEST: Clear CARDIAC: Rhythm is regular, no murmur ABDOMEN: Soft and nontender. There is no liver or spleen enlargement. No mass. EXTREMITIES: No clubbing, cyanosis, or edema. R BKA. DIAGNOSTIC DATA: Chest x-ray shows CHF. Troponin is elevated. IMPRESSION: 1. Severe hypoglycemia with AMS, improved 2. CHF to volume overload from renal failure. 3. Renal failure 4. Asthma, stable 5. Hypertension. 6. Hyperlipidemia. 7. DVT on anticoagulation. 8. Paroxysmal atrial fibrillation PLAN: The patient will continue current therapy. He will urgent dialysis for fluid overload. We will give DuoNeb treatments Insulin was adjusted. Cardiology is following. Manish Oviedo MD, Michael J. MD Jan 21, 2019 15:49
[2019-01-21 16:00] VITALS: BP 92/58
[2019-01-21] MEDS ORDERED: Warfarin Sodium 4mg PO SCH (17:00)
[2019-01-21] MEDS ORDERED: dilTIAZem HCl CD 240mg cap ORAL SCH (18:00)
--- NOTE | 2019-01-21 19:20 | NUR ---
Received report from Kiran Fajardo RN. Pt is awake, oriented x4, A flutter. Dr. Ruby aware per MD notes. BP 100/60, RR 20 on 2 LPM via NC, o2 100%, T 97.8, P 70. Call light within reach, pt given instructions to use when assistance is needed; verbalized understanding. Bed in lowest position, bed alarm armed. Pt denies any pain or distress at this time. Will continue care plan and to monitor closely
[2019-01-21] MEDS ORDERED: B COMPLEX WITH1 EACH ORAL (19:27)
[2019-01-21] MEDS ORDERED: FUROSEMIDE80 M1 ORAL (19:28)
[2019-01-21] MEDS ORDERED: LOSARTAN POTAS100 MG ORAL (19:30)
[2019-01-21] MEDS ORDERED: WARFARIN SODIUM3 MG ORAL (19:30)
--- NOTE | 2019-01-21 19:30 | Consultation ---
DATE OF CONSULTATION: 01/21/2019 CONSULTING PHYSICIAN: Sandeep Talbot M.D. REASON FOR CONSULTATION: End-stage renal disease, on dialysis. HISTORY OF PRESENT ILLNESS: The patient is a 68-year-old gentleman who undergoes hemodialysis every Sunday, Sunday, and Sunday. The patient did not have hemodialysis yesterday due to hypotension. He does have known history of atrial fibrillation and had been hospitalized approximately two months ago and started on additional therapy for rate control as well as cardioembolic prophylaxis. He has been compliant with his medications. He was found by his on the ground altered and confused when she left the house at 9 in the morning. When she returned, he was still confused and was hypoglycemic when the paramedics arrived. As such, he was brought to the emergency room for further evaluation and care. He did undergo hemodialysis this morning. ALLERGIES: None. PAST MEDICAL HISTORY: 1. Hypertension. 2. End-stage renal disease, on dialysis. 3. Diastolic dysfunction with CHF. 4. Diabetes mellitus type 2. 5. Bronchospastic lung disease. 6. Lung abscess. 7. PAD with right BKA. 8. PAF. CURRENT MEDICATIONS: Reviewed in medication reconciliation list. FAMILY HISTORY: Positive for hypertension. SOCIAL HISTORY: No tobacco, alcohol, or illicit drug use. REVIEW OF SYSTEMS: NEUROLOGIC: The patient denies any syncope or presyncopal episodes, but was confused. CARDIOVASCULAR: No current chest pain or palpitations. PULMONARY: No difficulty breathing, productive cough, or sputum. GASTROINTESTINAL/GENITOURINARY: No change in urinary or bowel habits. No nausea, vomiting, or diarrhea. ENDOCRINOLOGY: No night sweats, fevers, or chills. MUSCULOSKELETAL: The patient is feeling weak, tired, and fatigued. PHYSICAL EXAMINATION: VITAL SIGNS: Blood pressure 110/66, respiratory rate 18, pulse 68, and temperature 98.3. Saturating 97% on 2 L nasal cannula. GENERAL: The patient is awake and alert, not in distress. HEENT: Extraocular muscles intact. No lymphadenopathy noted. Oropharyngeal mucosa is clear and dry. CARDIOVASCULAR: S1 and S2. Irregularly irregular. PULMONARY: Clear to auscultation bilaterally. No rales, rhonchi, or wheezes. ABDOMEN: Soft and nontender. EXTREMITIES: 1+ edema. LABORATORY DATA: Labs dated 01/20/2019, sodium 143, potassium 3.1, creatinine 8.6, BUN 71. Hemoglobin 10.9, white cell count 21.8, and platelet count 180,000. ASSESSMENT AND PLAN: 1. End-stage renal disease, on dialysis. The patient did miss his hemodialysis session yesterday and did undergo hemodialysis today. We will then place the patient back on a Sunday, Sunday and Sunday schedule. 2. Atrial fibrillation. Defer management to Cardiology. 3. Hypertension. At this time, we will discontinue hydralazine and monitor carefully to allow the patient to tolerate dialysis sessions. 4. Hypokalemia. We will replace with 20 KCl p.o. x1. 5. Anemia of chronic kidney disease. Epogen if hemoglobin less than 10. 6. Diabetes mellitus. We will defer management to Medicine team. Sandeep Talbot MD DR: RAISSA/GREGG JOB#: [id number] CC:
[2019-01-21 20:00] VITALS: BP 101/60
[2019-01-21] MEDS ORDERED: Carvedilol 25mg Tab ORAL SCH (21:00)
[2019-01-21] MEDS: Levemir Flexpen SUBQ SCH (21:36)
[2019-01-22] VITALS: BP 100/60
--- NOTE | 2019-01-22 00:45 | Progress Note ---
DATE: 01/21/2019 CARDIOLOGY PROGRESS NOTE SUBJECTIVE: The patient underwent hemodialysis with ultrafiltration early today. His heart rate control has been achieved with a combination regimen initiated by me last night that included both IV and oral drugs. The patient has no shortness of breath at this time. Denies palpitation. OBJECTIVE: VITAL SIGNS: Blood pressure 92/58, pulse 58, respirations 18, and afebrile. LUNGS: Diminished breath sounds. Few rales. HEART: Irregularly irregular rhythm. Normal S1, S2. A 1/6 systolic murmur at apex. ABDOMEN: Soft. EXTREMITIES: No edema. LABORATORY DATA: Troponin is 0.205. Urinalysis with 30-40 white cells. INR 2. IMPRESSION: 1. Hypoglycemia with metabolic encephalopathy, resolved. 2. Paroxysmal atrial fibrillation with rapid ventricular response, now controlled rate. 3. End-stage renal disease. 4. Acute on chronic diastolic congestive heart failure due to missed dialysis session. 5. Bronchospastic lung disease. 6. Hypertensive heart disease, now with low-range blood pressure. 7. History of DVT. 8. Acute myocardial ischemia precipitated by rapid atrial fibrillation and pulmonary venous congestion. PLAN: 1. Continue full anticoagulation. 2. Adjust beta-evens and diltiazem dose for optimal rate control. 3. Discontinue topical nitrates. 4. Hold parameters for other antihypertensives for low-range blood pressure. 5. Hemodialysis with ultrafiltration for volume management. Eloy Ruby M.D. DR: Vivian JOB#: [id number] CC:
[2019-01-22 04:00] VITALS: BP 100/64
[2019-01-22] MEDS: Albuterol/Ipratropium 3ml neb HHN PRN ×2 (04:01→11:26)
[2019-01-22 05:47] LABS: INR 2.1 (0.9-1.1)
[2019-01-22] MEDS: Levothyroxine 25mcg tab ORAL SCH (06:16)
[2019-01-22] MEDS: NovoLOG Insulin Flexpen SUBQ SCH ×3 (06:19→17:46)
[2019-01-22 06:23] LABS: ANION GAP 14 mmol/L (5-15); BLOOD UREA NITROGEN 68 mg/dL (7-18); CARBON DIOXIDE 26 MMOL/L (21-32); CHLORIDE 99 MMOL/L (98-107); CREATININE 8.8 MG/DL (0.55-1.30); POTASSIUM 3.8 MMOL/L (3.5-5.1); SODIUM 139 MMOL/L (136-145)
--- NOTE | 2019-01-22 07:17 | NUR ---
HAND-OFF: Report given to Sharmin Mason RN.
--- NOTE | 2019-01-22 07:18 | NUR ---
NURSE NOTES: Received patient in bed. Awake, verbal, able to make needs known. Call light within reach. On nasal cannula at 2LPM. Contact isolation observed. Will continue plan of care.
--- NOTE | 2019-01-22 07:50 | NUR ---
NURSE NOTES: Dr. Talbot at bedside.
--- NOTE | 2019-01-22 07:53 | Nephrology Progress Note ---
Assessment/Plan Assessment/Plan: A/P 1. ESRD. HD today and now back on MWF schedule 2. Atrial fibrillation. Defer management to Cardiology. - stable 3. Hypertension. Continue to decrease medications as mentation and encephalopathy has improved with resolution of hypotension 4. Hypokalemia. Replace prn 5. Anemia of chronic kidney disease. Epogen if hemoglobin less than 10. 6. Diabetes mellitus. We will defer management to Medicine team. Subjective Date patient seen: Jan 22, 2019 Time patient seen: 07:50 ROS Limited/Unobtainable: No Allergies: Coded Allergies: No Known Allergies (Unverified , 11/14/16) Subjective Patient much improved this am Objective Last 24 Hour Vital Signs Date Time Temp Pulse Resp B/P (MAP) Pulse Ox O2 Delivery O2 Flow Rate FiO2 01/22/19 04:01 65 20 99 Nasal Cannula 2.0 28 62 18 97 01/22/19 04:00 Nasal Cannula 2.0 01/22/19 04:00 97.5 90 20 100/64 (76) 98 01/22/19 04:00 2.0 01/22/19 04:00 71 01/22/19 00:00 74 01/22/19 00:00 Nasal Cannula 2.0 01/22/19 00:00 98.2 90 20 100/60 (73) 98 01/22/19 00:00 2.0 01/21/19 21:34 70 101/60 01/21/19 20:00 Nasal Cannula 2.0 01/21/19 20:00 97.5 70 20 101/60 (74) 97 01/21/19 19:22 98 Nasal Cannula 2.0 28 01/21/19 19:21 68 18 98 Nasal Cannula 2.0 28 01/21/19 19:20 67 18 98 Nasal Cannula 2.0 28 01/21/19 18:00 92/58 01/21/19 17:26 58 92/58 01/21/19 16:21 58 01/21/19 16:18 Nasal Cannula 2.0 01/21/19 16:00 99.0 57 18 92/58 (69) 96 01/21/19 16:00 2.0 01/21/19 15:50 62 20 100 Nasal Cannula 2.0 28 59 18 98 01/21/19 14:00 110/66 12/3/19 12:01 Nasal Cannula 2.0 01/21/19 12:00 69 01/21/19 12:00 98.3 68 18 110/66 (81) 97 01/21/19 12:00 2.0 01/21/19 12:00 105/65 01/21/19 09:24 99 20 100 Nasal Cannula 2.0 28 98 20 98 01/21/19 09:20 105/65 01/21/19 09:19 61 105/65 01/21/19 09:18 61 105/65 01/21/19 08:59 98 Nasal Cannula 2.0 01/21/19 08:53 97 20 98 Nasal Cannula 2.0 01/21/19 08:50 Nasal Cannula 2.0 01/21/19 08:47 97 20 98 Nasal Cannula 2.0 01/21/19 08:00 98.7 71 20 92/60 (71) 96 01/21/19 08:00 2.0 01/21/19 08:00 71 01/21/19 08:00 2.0 Intake and Output 01/21/19 01/22/19 19:00 07:00 Intake Total 360 ml 400 ml Output Total 2060 ml 350 ml Balance -1700 ml 50 ml Intake Oral 360 ml 400 ml Output Urine Total 60 ml 350 ml Hemodialysis UF 2000 ml Laboratory Tests 01/22/19 04:15: Prothrombin Time 21.1H, Prothromb Time International Ratio 2.1H, Sodium Level 139, Potassium Level 3.8, Chloride Level 99, Carbon Dioxide Level 26, Anion Gap 14, Blood Urea Nitrogen 68H, Creatinine 8.8H, Estimat Glomerular Filtration Rate 7.4, Glucose Level 250H, Calcium Level 6.0L Height (Feet): 5 Height (Inches): 8.00 Weight (Pounds): 214 General Appearance: no apparent distress, alert EENT: normal ENT inspection Neck: normal alignment, supple Cardiovascular: regularly irregular Respiratory/Chest: rhonchi - bilaterally Abdomen: non tender, soft Sandeep Talbot MD Jan 22, 2019 07:53
[2019-01-22 08:00] VITALS: BP 113/50
[2019-01-22] MEDS: Qvar 40mcg Inhaler 6.8 gm INH SCH (08:56)
[2019-01-22] MEDS ORDERED: Carvedilol 25mg Tab ORAL SCH (09:00)
[2019-01-22] MEDS ORDERED: Losartan 50mg tab ORAL SCH (09:00)
[2019-01-22] MEDS: Aspirin EC 81mg tab ORAL SCH (09:00)
[2019-01-22] MEDS: dilTIAZem HCl CD 240mg cap ORAL SCH ×2 (09:00→16:34)
[2019-01-22 12:00] VITALS: BP 129/85
[2019-01-22] MEDS ORDERED: AMOXIL250 MG ORAL (12:52)
--- NOTE | 2019-01-22 13:04 | General Progress Note ---
Assessment/Plan Assessment/Plan: 1. Severe hypoglycemia with AMS, improved 2. CHF to volume overload from renal failure. 3. Renal failure 4. Asthma, stable 5. Hypertension. 6. Hyperlipidemia. 7. DVT on anticoagulation. 8. Paroxysmal atrial fibrillation ready for dc after HD today advised not to take extremely high doses of insulin Subjective Constitutional: Reports: no symptoms Allergies: Coded Allergies: No Known Allergies (Unverified , 11/14/16) Objective Last 24 Hour Vital Signs Date Time Temp Pulse Resp B/P (MAP) Pulse Ox O2 Delivery O2 Flow Rate FiO2 01/22/19 12:00 98.9 126 16 129/85 (100) 99 01/22/19 11:24 75 18 99 Nasal Cannula 2.0 28 72 18 97 01/22/19 09:01 96 Nasal Cannula 2.0 28 01/22/19 09:00 90 18 96 Nasal Cannula 2.0 28 01/22/19 09:00 90 18 96 Nasal Cannula 2.0 28 01/22/19 09:00 90 113/50 01/22/19 08:00 98.2 94 16 113/50 (71) 98 01/22/19 08:00 Nasal Cannula 2.0 01/22/19 07:48 88 01/22/19 04:01 65 20 99 Nasal Cannula 2.0 28 62 18 97 01/22/19 04:00 Nasal Cannula 2.0 01/22/19 04:00 97.5 90 20 100/64 (76) 98 01/22/19 04:00 2.0 01/22/19 04:00 71 01/22/19 00:00 74 01/22/19 00:00 Nasal Cannula 2.0 01/22/19 00:00 98.2 90 20 100/60 (73) 98 01/22/19 00:00 2.0 01/21/19 21:34 70 101/60 01/21/19 20:00 Nasal Cannula 2.0 01/21/19 20:00 97.5 70 20 101/60 (74) 97 01/21/19 19:22 98 Nasal Cannula 2.0 28 01/21/19 19:21 68 18 98 Nasal Cannula 2.0 28 01/21/19 19:20 67 18 98 Nasal Cannula 2.0 28 01/21/19 18:00 92/58 01/21/19 17:26 58 92/58 01/21/19 16:21 58 01/21/19 16:18 Nasal Cannula 2.0 01/21/19 16:00 99.0 57 18 92/58 (69) 96 01/21/19 16:00 2.0 01/21/19 15:50 62 20 100 Nasal Cannula 2.0 28 59 18 98 01/21/19 14:00 110/66 Intake and Output 01/21/19 01/22/19 18:59 06:59 Intake Total 360 ml 400 ml Output Total 2060 ml 350 ml Balance -1700 ml 50 ml Intake Oral 360 ml 400 ml Output Urine Total 60 ml 350 ml Hemodialysis UF 2000 ml Laboratory Tests 01/22/19 04:15: Prothrombin Time 21.1H, Prothromb Time International Ratio 2.1H, Sodium Level 139, Potassium Level 3.8, Chloride Level 99, Carbon Dioxide Level 26, Anion Gap 14, Blood Urea Nitrogen 68H, Creatinine 8.8H, Estimat Glomerular Filtration Rate 7.4, Glucose Level 250H, Calcium Level 6.0L Height (Feet): 5 Height (Inches): 8.00 Weight (Pounds): 214 General Appearance: no apparent distress Cardiovascular: normal rate Respiratory/Chest: lungs clear Manish Oviedo MD Jan 22, 2019 13:04
--- NOTE | 2019-01-22 13:08 | NUR ---
NURSE NOTES: [facility] HD Nurse at bedside.
[2019-01-22 14:18] LABS: BASOPHILS % (AUTO) 0.9 % (0.0-2.0); EOSINOPHILS % (AUTO) 1.2 % (0.0-3.0); HEMATOCRIT 32.3 % (42.0-52.0); HEMOGLOBIN 10.2 G/DL (14.2-18.0); LYMPHOCYTES % (AUTO) 16.5 % (20.0-45.0); MEAN CORPUSCULAR VOLUME 95 FL (80-99); MONOCYTES % (AUTO) 8.5 % (1.0-10.0); NEUTROPHILS % (AUTO) 72.9 % (45.0-75.0); PLATELET COUNT 167 K/UL (150-450); RED CELL DISTRIBUTION WIDTH 15.1 % (11.6-14.8); WHITE BLOOD COUNT 7.7 K/UL (4.8-10.8)
--- NOTE | 2019-01-22 15:48 | NUR ---
NURSE NOTES: Spoke to Scarlett from Doctor Tung's office, informed regarding latest troponin level of 0.065. And Heart Rate of above 130. No new order at this time.
--- NOTE | 2019-01-22 15:57 | NUR ---
*-* INSURANCE *-* ALL CLINICALS AND REVIEWS HAVE BEEN FAXED TO: [facility] Ref# [id number] CM: Haydee #[phone]
[2019-01-22 16:00] VITALS: BP 155/89
[2019-01-22 16:34] VITALS: BP 155/89
[2019-01-22] MEDS ORDERED: Warfarin Sodium 4mg PO SCH (17:00)
--- NOTE | 2019-01-22 18:00 | NUR ---
NURSE NOTES: Reviewed belongings with patient. And patient signed belonging list. Discharge packet given to patient and patient's next of kin. Patient instructions and education given to patient and nect of kin/Isela and verbalized understanding. No signs and symptoms of hypoglycemia.
--- NOTE | 2019-01-22 18:16 | NUR ---
NURSE NOTES: Discharged patient to Home. Accompanied by next of kin/Isela Pina. Via private vehicle.
--- NOTE | 2019-01-23 02:15 | Progress Note ---
DATE: 01/22/2019 CARDIOLOGY PROGRESS NOTE SUBJECTIVE: The patient remains in atrial fibrillation. Mostly rate controlled although rate increased during dialysis as he did not receive his morning dose of diltiazem. OBJECTIVE: VITAL SIGNS: Blood pressure 113/50, pulse 90, and respirations 18. During dialysis, rate is up to 126. LUNGS: Clear. CARDIAC: Irregularly irregular. Normal S1, S2. A 1/6 systolic murmur at apex. ABDOMEN: Soft. EXTREMITIES: No edema. LABORATORY DATA: Laboratories noted. IMPRESSION: 1. Paroxysmal atrial fibrillation, rate control achieved with current regimen is continued. 2. Acute on chronic diastolic congestive heart failure, compensated with ultrafiltration. 3. Hypertensive heart disease with controlled blood pressure. 4. Metabolic encephalopathy with altered mentation due to hypoglycemia, now recovered. PLAN: 1. Outpatient followup. 2. Continue current cardiovascular regimen. 3. Avoid tight glucose control for now. 4. Cardiovascular medication regimen discussed in detail with the patient. Eloy Ruby M.D. DR: ANNY JOB#: [id number] CC:
--- NOTE | 2019-01-23 10:19 | Discharge Summary ---
Discharge Summary Discharge Summary _ DATE OF ADMISSION: 01/20/2019 DATE OF DISCHARGE: 01/22/2019 DISCHARGED BY: Dr. Oviedo REASON FOR ADMISSION: 68 years old male with past medical history of end-stage renal disease, on hemodialysis, longstanding asthma, hypertension, hyperlipidemia, DVT, diabetes mellitus, hypothyroidism, paroxysmal atrial fibrillation, presented with hypoglycemia . Apparently his blood sugar was over 500 at home, and he took 40 units of regular insulin instead of his usual 12 to 14 units with each meal. Patient was found later by his being lethargic and confused with blood sugar less than 20. Patient responded to glucose given by paramedics, but remains weak. In the emergency department patient was somnolent and slow to respond After further glucose treatment , patient became more awake. He denied chest pain or shortness of breath. He denied any focal weakness. Patient was due for dialysis that day, but missed it due to generalized weakness Upon evaluation vital signs were stable. Laboratory work-up revealed significant leukocytosis WBC 21.8, hemoglobin 10.9, hematocrit 32.9, platelet count 180. Potassium 3.1. BUN 71, creatinine 8.6, consistent with known history of end-stage renal disease. Glucose 177. Lactic acid 0.7. Stable LFT and lipase. Troponin 0.128, pro BNP 34428. Urinalysis revealed pyuria, +4 protein, +1 glucose, and few bacteria. CT of the head revealed no acute intracranial bleeding, mass-effect or edema. Mild atrophy of the brain noted. Chest x-ray demonstrated fluid overload. EKG revealed atrial fibrillation with rapid ventricular response, heart rate of 114. Patient received diltiazem IV for rate control Patient responded well to dextrose, by becoming more alert. Patient started on broad-spectrum antibiotic for possible UTI. Patient subsequently admitted to stepdown unit for further management. CONSULTANTS: follow up specialist cardiopulmonary physical therapist Dr.De Nagel [facility] COURSE: Patient admitted to stepdown unit. All anti-glycemic initially were hold. Blood sugar was closely monitored. Urgent dialysis was arranged as per cardiopulmonary physical therapist orders for fluid overload. Renal parameters, volumes and electrolytes were closely monitored. Electrolytes corrected as needed. Supplemental oxygen provided and titrated to keep pulse oximetry above 92%. Bronchodilator therapy via handheld nebulizer provided. When blood sugar stabilized, blood sugar was managed with sliding scale of insulin. Therapeutic [facility] followed. After IV diltiazem patient started on oral diltiazem . Serial troponin showed minimal elevation with peak of 0.205 and trended down to 0.065. EKG revealed atrial fibrillation/flutter with controlled response. Heart rate was controlled with diltiazem and beta-evens Anticoagulation provided with Coumadin to dose per pharmacy. Blood pressure was managed with multiply antihypertensive medication. Blood pressure remained stable . Lasix provided with close monitoring of volumes and cardiorenal parameters. Statin continued . DVT prophylaxis provided. Topical nitrates instituted Hemoglobin and hematocrit were closely monitored with goal to keep hemoglobin above 7. Hemoglobin and hematocrit remained at baseline; prior to discharge hemoglobin 10.3 ,hematocrit 32.3. Home Health Caregiver recommended to start Epogen only if hemoglobin drops below 10 . Blood culture were negative. Urine culture revealed mixed gram-positive organisms. Leukocytosis resolved the next day. Antibiotic stopped. Supportive care provided. Patient clinically stabilized and was ready for discharge home. Patient was reminded not to alter dose of insulin and comply with the current regimen. Patient was instructed when to call to MD or return to ED regarding hyperglycemia and hypoglycemia. FINAL DIAGNOSES: Severe hypoglycemia-resolved Acute metabolic encephalopathy secondary to hypoglycemia Leukocytosis -resolved Acute on chronic diastolic congestive heart failure CHF with volume overload secondary to renal failure End-stage renal disease, on dialysis with missed hemodialysis Hypertensive heart disease Acute myocardial ischemia Paroxysmal atrial fibrillation with rapid ventricular response Asthma Hyperlipidemia Mild hypokalemia in setting of end-stage renal disease Anemia of chronic kidney disease DISCHARGE MEDICATIONS: See Medication Reconciliation list. DISCHARGE INSTRUCTIONS: Patient was discharged home. Follow-up with a primary care provider in 1 week. Follow-up with dialysis as scheduled. I have been assigned to dictate discharge summary for this account. I was not involved in the patient's management. Charu Juarez NP Jan 23, 2019 10:18
== END 2019-01-22 18:16 | disposition home or self-care (01) | DRG 637 ==
LOC: EDBD 14:36 → EMR 15:00 → 2W 16:43 → EDBEDREQ 18:36 → 2W 20:18
DX: E11.649 Type 2 diabetes mellitus with hypoglycemia without coma (principal); G93.41 Metabolic encephalopathy; I50.33 Acute on chronic diastolic (congestive) heart failure; I13.2 Hypertensive heart and chronic kidney disease with heart failure and with stage 5 chronic kidney disease, or end stage renal disease; N18.6 End stage renal disease; E78.5 Hyperlipidemia, unspecified; I48.0 Paroxysmal atrial fibrillation; J45.909 Unspecified asthma, uncomplicated; Z86.718 Personal history of other venous thrombosis and embolism; Z99.2 Dependence on renal dialysis; Z91.15 Patient's noncompliance with renal dialysis; E11.22 Type 2 diabetes mellitus with diabetic chronic kidney disease; I51.3 Intracardiac thrombosis, not elsewhere classified; E87.6 Hypokalemia; D63.1 Anemia in chronic kidney disease; Z79.01 Long term (current) use of anticoagulants; Z89.511 Acquired absence of right leg below knee; Z79.4 Long term (current) use of insulin
CPT/HCPCS: 36415; 70450; 71045; 80048; 80053; 81001; 81003; 82550; 82553; 82962; 83605; 83690; 83735; 83880; 84100; 84484; 85007; 85025; 85610; 85730; 87040; 87081; 87086; 93005; 94640; 96365; 96375; 96376; 99285; J1815; J7030; J7620; J8499; S5561

== ENCOUNTER 2019-01-27 03:35 | Inpatient (IN) | payer OTHER, MEDICARE ==
[~2019-01-27] VITALS: Ht 170.2 cm; Wt 86.7 kg
[2019-01-27] VITALS (10 sets, daily range): BP systolic 111–180; BP diastolic 42–126
[~2019-01-27 03:35] MED LIST changes: +AMOXIL250 MG ORAL; +B COMPLEX WITH1 EACH ORAL; +DILTIAZEM 24HR240 M1 PO; +DIPHENOXYLATE-1 EACH PO; +LOSARTAN POTAS100 MG ORAL; +QVAR7.3 GM INH; +WARFARIN SODIUM3 MG ORAL
[2019-01-27] MEDS ORDERED: Levalbuterol Inh UD 1.25mg/0.5ml HHN ONE (03:45)
[2019-01-27] MEDS ORDERED: Ipratropium 0.02% Inh Soln 2.5ml UD HHN ONE (03:45)
--- NOTE | 2019-01-27 04:45 | Emergency Room Report ---
History of Present Illness General Chief Complaint: Dyspnea/Respdistress Source: Patient, Medical Record (Payton Luther DO) Present Illness HPI Patient presents with complaints of asthma exacerbation Reports that he has allergies to dust and his recently swept the floor and there was increased amounts of dust in the air Denies any chest pain denies any vomiting patient was recently discharged from the hospital Patient also has other comorbidities including renal failure and CHF Denies any abdominal pain denies any distention denies any fevers or chills (Payton Luther DO) Allergies: Coded Allergies: Dust (Verified Allergy, Unknown, 01/27/19) Patient History Past Medical History: see triage record Reviewed Nursing Documentation: PMH: Agreed; PSxH: Agreed (Payton Luther DO) Nursing Documentation-PMH Hx Cardiac Problems: Yes - HTN, CHF Hx Hypertension: Yes Hx Asthma: Yes Hx Diabetes: Yes Hx Cancer: No Hx Gastrointestinal Problems: No Hx Dialysis: Yes - LUE graft/port; Dialysis M, W, F Hx Neurological Problems: No (Payton Luther DO) Review of Systems All Other Systems: negative except mentioned in HPI (Payton Luther DO) Physical Exam Vital Signs Date Time Temp Pulse Resp B/P (MAP) Pulse Ox O2 Delivery O2 Flow Rate FiO2 01/27/19 03:33 98.6 86 20 180/126 (144) 98 Room Air 01/27/19 03:41 2.0 01/27/19 03:49 28 Sp02 EP Interpretation: reviewed, normal General Appearance: mild distress - Short of breath Head: normocephalic, atraumatic Eyes: bilateral eye PERRL, bilateral eye EOMI ENT: EOM grossly intact Neck: supple Respiratory: no retraction, no accessory muscle use - However mildly tachypneic , crackles - With wheezing bilaterally Cardiovascular #1: regular rate, rhythm Gastrointestinal: non tender, soft Musculoskeletal: other - Right lower extremity prosthesis Neurologic: alert, oriented x3 Psychiatric: normal inspection Skin: no rash Lymphatic: no adenopathy (Payton Luther DO) Procedures Critical Care Time Critical Care Time 50 minutes for multiple re-evaluations critical presentation with evidence of hypoxia possible respiratory arrest not including any procedural time (Payton Luther DO) Medical Decision Making Diagnostic Impression: Primary Impression: Dyspnea Additional Impressions: Respiratory distress CHF exacerbation Diabetes Anemia in chronic kidney disease Elevated troponin ER Course Patient is a fairly complex patient with multiple differential to consideration including but not limited to cardiac cardiopulmonary and vascular emergencies Patient has had recent hospitalization Initially was treated symptomatically with breathing treatment however patient appears tachypneic and short of breath x-rays obtained which shows continued Pulmonary congestion On room air patient saturating at 83% and patient reports that he does not have any oxygen at home Patient is placed on BiPAP requires further airway intervention And requested for inpatient care (Payton Luther DO) ER Course Aspirin given for positive troponin. No STEMI on EKG. Patient examined by Dr. Oviedo in the emergency department. Improved with treatment. Angry at having to be admitted to the hospital. Dr. Tidwell contacted for dialysis. Dr. Ruby contacted for cardiology consultation. Laboratory Tests Test 01/27/19 04:40 01/27/19 05:15 01/27/19 13:55 White Blood Count 12.7 K/UL (4.8-10.8) H Red Blood Count 3.69 M/UL (4.70-6.10) L Hemoglobin 11.2 G/DL (14.2-18.0) L Hematocrit 34.7 % (42.0-52.0) L Mean Corpuscular Volume 94 FL (80-99) Mean Corpuscular Hemoglobin 30.2 PG (27.0-31.0) Mean Corpuscular Hemoglobin Concent 32.1 G/DL (32.0-36.0) Red Cell Distribution Width 14.9 % (11.6-14.8) H Platelet Count 232 K/UL (150-450) Mean Platelet Volume 5.2 FL (6.5-10.1) L Neutrophils (%) (Auto) 83.4 % (45.0-75.0) H Lymphocytes (%) (Auto) 7.5 % (20.0-45.0) L Monocytes (%) (Auto) 7.5 % (1.0-10.0) Eosinophils (%) (Auto) 0.6 % (0.0-3.0) Basophils (%) (Auto) 0.9 % (0.0-2.0) Sodium Level 142 MMOL/L (136-145) Potassium Level 4.7 MMOL/L (3.5-5.1) Chloride Level 101 MMOL/L (98-107) Carbon Dioxide Level 25 MMOL/L (21-32) Anion Gap 17 mmol/L (5-15) H Blood Urea Nitrogen 91 mg/dL (7-18) H Creatinine 9.6 MG/DL (0.55-1.30) H Estimate Glomerular Filtration Rate 6.7 mL/min (>60) Glucose Level 269 MG/DL (74-106) H Calcium Level 6.5 MG/DL (8.5-10.1) L Troponin I 0.219 ng/mL (0.000-0.056) 0.209 ng/mL (0.000-0.056) Pro-B-Type Natriuretic Peptide 11366 pg/mL (0-125) H Arterial Blood pH 7.336 (7.350-7.450) Arterial Blood Partial Pressure CO2 34.8 mmHg (35.0-45.0) L Arterial Blood Partial Pressure O2 112.4 mmHg (75.0-100.0) H Arterial Blood HCO3 18.2 mmol/L (22.0-26.0) L Arterial Blood Oxygen Saturation 96.8 % (95-100) Arterial Blood Base Excess -6.9 (-2-2) L Doe Test Positive Prothrombin Time 20.3 SEC (9.30-11.50) H Prothrombin Time INR 2.0 (0.9-1.1) H (Eloy Altamirano MD) EKG Diagnostic Results Rate: normal Rhythm: NSR ST Segments: other - Nonspecific ST changes (Payton Luther DO) ASA given to the pt in ED: Yes (Eloy Altamirano MD) Rhythm Strip Diag. Results EP Interpretation: yes Rate: 88 Rhythm: NSR, no PVC's, no ectopy (Payton Luther DO) EP Interpretation: yes Rhythm: NSR, no PVC's, no ectopy (Eloy Altamirano MD) Chest X-Ray Diagnostic Results Chest X-Ray Diagnostic Results : Chest X-Ray Ordered: Yes # of Views/Limited/Complete: 1 View Indication: Shortness of Breath EP Interpretation: Yes Interpretation: no consolidation, no pneumothorax, other - Pulmonary congestion Impression: Other - Pulmonary congestion Electronically Signed by: Payton Luther DO (Payton Luther DO) Last Vital Signs Date Time Temp Pulse Resp B/P (MAP) Pulse Ox O2 Delivery O2 Flow Rate FiO2 01/27/19 03:49 88 21 99 Nasal Cannula 2.0 28 86 22 96 01/27/19 03:41 98.6 180/126 Status: improved (Payton Luther DO) Last Vital Signs Date Time Temp Pulse Resp B/P (MAP) Pulse Ox O2 Delivery O2 Flow Rate FiO2 01/27/19 20:01 3.0 01/27/19 20:00 95 01/27/19 20:00 Bi-pap 01/27/19 19:17 21 100 30 01/27/19 14:29 135/58 01/27/19 11:28 98.6 Status: improved (Eloy Altamirano MD) Disposition: ADMITTED INPATIENT Condition: Critical Referrals: [facility],REFERR[facility] (PCP) Payton Luther DO Jan 27, 2019 04:45 Eloy Altamirano MD Jan 27, 2019 07:26
[2019-01-27 05:20] LABS: BASOPHILS % (AUTO) 0.9 % (0.0-2.0); EOSINOPHILS % (AUTO) 0.6 % (0.0-3.0); HEMATOCRIT 34.7 % (42.0-52.0); HEMOGLOBIN 11.2 G/DL (14.2-18.0); LYMPHOCYTES % (AUTO) 7.5 % (20.0-45.0); MEAN CORPUSCULAR VOLUME 94 FL (80-99); MONOCYTES % (AUTO) 7.5 % (1.0-10.0); NEUTROPHILS % (AUTO) 83.4 % (45.0-75.0); PLATELET COUNT 232 K/UL (150-450); RED BLOOD COUNT 3.69 M/UL (4.70-6.10); RED CELL DISTRIBUTION WIDTH 14.9 % (11.6-14.8); WHITE BLOOD COUNT 12.7 K/UL (4.8-10.8)
[2019-01-27 05:25] LABS: ANION GAP 17 mmol/L (5-15); BLOOD UREA NITROGEN 91 mg/dL (7-18); CALCIUM 6.5 MG/DL (8.5-10.1); CARBON DIOXIDE 25 MMOL/L (21-32); CHLORIDE 101 MMOL/L (98-107); CREATININE 9.6 MG/DL (0.55-1.30); POTASSIUM 4.7 MMOL/L (3.5-5.1); SODIUM 142 MMOL/L (136-145)
[2019-01-27] MEDS ORDERED: Nitroglycerin 2% oint pkt TOPIC ONE (06:15)
--- NOTE | 2019-01-27 10:29 | History & Physical ---
History and Physical History & Physicial HISTORY OF PRESENT ILLNESS: The patient is a 68-year-old man who was admitted with resp distress. He has a longstanding asthma and felt that he had flare after breathing dust at home. He developed respiratory distress, prompting his visit to the emergency department by EMS. He was found to have pulmonary edema and respiratory failure and was placed on BiPAP. Troponin is elevated but he has no chest pain. Echo 09/2018 with diastolic dysfcn. He has not missed dialysis or had excess fluids. History from patient and . PAST MEDICAL HISTORY: Includes renal failure, on dialysis, longstanding asthma, hypertension, hyperlipidemia, deep vein thrombosis, diabetes, hypothyroidism, paroxysmal atrial fibrillation. MEDICATIONS: Include Lipitor, amlodipine, Symbicort, Coreg, Lasix, insulin, thyroxine, Creon, Renvela, Micardis, vitamins, and Coumadin. ALLERGIES: None. REVIEW OF SYSTEMS: Otherwise unremarkable. SOCIAL HISTORY: He is not a smoker. He does not use alcohol to excess. PHYSICAL EXAMINATION: VITAL SIGNS: stable, no high fever. On BiPAP. GENERAL: The patient is overweight. SKIN: Warm and dry. HEENT: Head is normocephalic. NECK: No jugular venous distention. No lymphadenopathy. CHEST: Mild wheezing. CARDIAC: Rhythm is regular, no murmur ABDOMEN: Soft and nontender. There is no liver or spleen enlargement. No mass. EXTREMITIES: No clubbing, cyanosis, or edema. R BKA. DIAGNOSTIC DATA: Chest x-ray shows pulmonary edema. IMPRESSION: 1. Acute respiratory failure. 2. Acute pulmonary edema possibly due to CHF or renal failure. 3. Renal failure 4. Asthma exacerbation. 5. Hypertension. 6. Hyperlipidemia. 7. DVT and paroxysmal atrial fibrillation on anticoagulation. 8. Diabetes with severe hyperglycemia PLAN: The patient will be seen by renal and cardiology. He needs urgent dialysis for fluid overload. We will give DuoNeb treatments every 4 hours and steroids. Manish Oviedo MD Jan 27, 2019 10:29
--- NOTE | 2019-01-27 12:02 | Diagnostic Imaging Report ---
Indication: Shortness of breath Technique: One view of the chest Comparison: 01/20/2019 Findings: Somewhat better inspiration currently. Again demonstrated is bilateral diffuse interstitial and airspace disease, suspect slightly worse allowing for differences in degree of inspiration. There is blunting of bilateral costophrenic sulci. The heart is upper limits of normal in size. Impression: Bilateral diffuse interstitial and airspace edema versus infiltrates, appearing slightly worse than on prior study of 01/20/2019 Suspect small bilateral pleural effusions
[2019-01-27] MEDS ORDERED: Dicyclomine HCl 10mg/5ml oral soln ORAL PRN (12:45)
[2019-01-27] MEDS: Ipratropium 0.02% Inh Soln 2.5ml UD HHN SCH ×2 (13:00→19:07)
[2019-01-27] MEDS: Solu-MEDROL 40mg Inj IVP SCH ×2 (13:21→21:01)
[2019-01-27] MEDS: HydrALAZINE 50mg tab ORAL SCH ×2 (13:21→21:08)
[2019-01-27] MEDS: Pancrelipase Dr Cap ORAL SCH ×2 (13:21→17:12)
[2019-01-27] MEDS: dilTIAZem HCl CD 240mg cap ORAL SCH (14:29)
[2019-01-27] MEDS: NovoLOG Insulin Flexpen SUBQ SCH ×3 (16:30→21:06)
[2019-01-27] MEDS ORDERED: Warfarin Sodium 3mg ORAL ONE (17:00)
[2019-01-27] MEDS ORDERED: NovoLOG Insulin Flexpen SUBQ ONE (18:30)
[2019-01-27] MEDS ORDERED: NovoLOG Insulin Flexpen SUBQ SCH (18:30)
[2019-01-27] MEDS: Levalbuterol Inh UD 1.25mg/0.5ml HHN SCH (19:07)
[2019-01-27] MEDS: Qvar 40mcg Inhaler 6.8 gm INH SCH (19:17)
[2019-01-27] MEDS ORDERED: Carvedilol 6.25mg Tab ORAL SCH (21:00)
[2019-01-27] MEDS ORDERED: Levemir Flexpen SUBQ SCH ×2 (21:00)
[2019-01-27] MEDS: Carvedilol 12.5mg tab ORAL SCH (21:01)
[2019-01-27] MEDS: Atorvastatin 20mg tab ORAL SCH (21:02)
--- NOTE | 2019-01-27 23:45 | Consultation ---
DATE OF CONSULTATION: 01/27/2019 CONSULTING PHYSICIAN: Smith Tidwell M.D. REFERRING PHYSICIAN: Manish Oviedo M.D. REASON FOR CONSULTATION: End-stage renal disease, congestive heart failure, and asthma. HISTORY OF PRESENT ILLNESS: The patient is well known to me with a history of insulin-dependent diabetes, end-stage renal disease, on dialysis, paroxysmal atrial fibrillation, recurrent episodes of congestive heart failure, asthma, and respiratory failure, who presents with increasing shortness of breath. He has been placed on BiPAP and sent to the intensive care unit and started on treatment for asthma with steroids and nebulizer treatments. Chest x-ray shows congestive heart failure. PAST SURGICAL HISTORY: Removal of half of the pancreas, several toe amputations, below-knee amputation, eye surgeries for retinal detachment, laser surgery to the eye, dialysis fistula in the left arm, dialysis PermCath, and right below-knee amputation. HOME MEDICATIONS: He cannot give me an accurate list now, but list is reviewed ad includes atorvastatin, beclomethasone inhaler, budesonide-formoterol inhaler, carvedilol, dicyclomine, diltiazem, Lomotil, ferric citrate, Lasix, hydralazine, Lantus and sliding scale, Zenpep, losartan vitamin B complex, and warfarin. HABITS: He has been a smoker and nondrinker. SOCIAL HISTORY: He lives with his , who is a nurse. He is retired and disabled. SYSTEM REVIEW: HEENT: Vision and hearing is good. ENDOCRINE: History of diabetes and obesity. Diabetes after pancreas surgery in the past. PULMONARY: History of asthma, history of prior episodes of respiratory failure. No known TB. CARDIAC: History of paroxysmal atrial fibrillation with rapid ventricular response. He has recently been put on diltiazem 240 mg b.i.d. GASTROINTESTINAL: History of sdniozfn-ys-oeuxcg recurrent diarrhea, history of overeating and obesity. No current abdominal pain. GENITOURINARY: No dysuria or hematuria. NEUROLOGIC: No CVA or seizures. History of diabetic neuropathy and Charcot joints. PHYSICAL EXAMINATION: GENERAL: The patient is seen in the ICU. He is on BiPAP, alert, and in no acute distress. VITAL SIGNS: Blood pressure 157/69, pulse ox 100% on BiPAP, and heart rate 84. HEENT: There is mild periorbital edema. Ocular motions intact in all directions. Oral mucosa moist. NECK: No adenopathy. LUNGS: Bilateral wheeze. He is not in severe distress at this time. HEART: Rhythm is regular. I hear no murmur. ABDOMEN: Obese and soft without organomegaly. EXTREMITIES: Show trace edema. He has a right below-knee amputation. Left arm AV fistula. NEUROLOGIC: He is alert and oriented. Cranial nerves are intact. He moves all extremities. PERTINENT LABORATORY DATA: Show white count of 12.7 and hemoglobin 11.2. Sodium 142, potassium 4.7, chloride 101, CO2 25, BUN 91, creatinine 9.6, and glucose 269. Troponin 0.209 and BNP of 29,268. IMPRESSION: 1. End-stage renal disease. 2. Congestive heart failure, acute on chronic with diastolic dysfunction. 3. Paroxysmal atrial fibrillation, currently sinus rhythm with first-degree AV block. 4. Asthma, decompensated, likely congestive heart failure contributing. PLAN: The patient is on serial dialysis. We will review all medications for end-stage renal disease. He has had recurrent hospitalizations. He is a high risk patient. Smith Tidwell M.D. DR: MASON JOB#: [id number] CC:
[2019-01-28] VITALS (25 sets, daily range): BP systolic 104–137; BP diastolic 44–96
[2019-01-28] MEDS: Ipratropium 0.02% Inh Soln 2.5ml UD HHN SCH ×4 (01:01→18:55)
[2019-01-28] MEDS: Levalbuterol Inh UD 1.25mg/0.5ml HHN SCH ×4 (01:01→18:55)
[2019-01-28] MEDS: HydrALAZINE 50mg tab ORAL SCH ×3 (05:35→21:18)
[2019-01-28] MEDS: NovoLOG Insulin Flexpen SUBQ SCH ×7 (05:36→21:20)
[2019-01-28] MEDS ORDERED: Heparin Sod 1000 units/ml 10ml IV PRN (06:00)
[2019-01-28] MEDS ORDERED: Levothyroxine 25mcg tab ORAL SCH (06:30)
[2019-01-28] MEDS: Qvar 40mcg Inhaler 6.8 gm INH SCH ×3 (08:42→18:53)
[2019-01-28] MEDS ORDERED: Furosemide 80mg tab ORAL SCH (09:00)
[2019-01-28] MEDS ORDERED: Losartan 50mg tab ORAL SCH (09:00)
[2019-01-28] MEDS: Solu-MEDROL 40mg Inj IVP SCH ×2 (09:00→21:17)
[2019-01-28] MEDS: dilTIAZem HCl CD 240mg cap ORAL SCH ×2 (09:00→18:19)
[2019-01-28] MEDS: Carvedilol 12.5mg tab ORAL SCH ×2 (09:38→21:18)
[2019-01-28] MEDS: Pancrelipase Dr Cap ORAL SCH ×3 (09:38→18:18)
--- NOTE | 2019-01-28 11:27 | Pulmonology Progress Note ---
Assessment/Plan Assessment/Plan 1. Acute respiratory failure. 2. Acute pulmonary edema possibly due to CHF or renal failure. 3. Renal failure 4. Asthma exacerbation. 5. Hypertension. 6. Hyperlipidemia. 7. DVT and paroxysmal atrial fibrillation on anticoagulation. 8. Diabetes with severe hyperglycemia off BiPAP not SOB 3.5 liters UF yesterday BS >500 w steroids; better now trop 0.2 echo ok, EF 60%concerned about possible CAD and flash pul edema agrees to transfer to [facility] hospital disc w , RN, endo, cardiology, renal stable for transfer Subjective ROS Limited/Unobtainable: Yes Respiratory: Reports: hemoptysis; Denies: shortness of breath Cardiovascular: Denies: chest pain Allergies: Coded Allergies: Dust (Verified Allergy, Unknown, 01/27/19) Objective Last 24 Hour Vital Signs Date Time Temp Pulse Resp B/P (MAP) Pulse Ox O2 Delivery O2 Flow Rate FiO2 01/28/19 11:00 66 23 104/54 (71) 98 01/28/19 10:00 76 26 118/48 (71) 97 01/28/19 09:38 71 119/44 01/28/19 09:00 71 24 119/44 (69) 98 01/28/19 09:00 70 119/44 01/28/19 09:00 119/44 01/28/19 08:00 2.0 01/28/19 08:00 71 01/28/19 08:00 98.6 71 24 120/45 (70) 98 01/28/19 08:00 Nasal Cannula 2.0 Nasal Cannula 2.0 01/28/19 07:35 69 21 99 Nasal Cannula 2.0 28 72 21 98 01/28/19 07:25 98 Nasal Cannula 2.0 28 01/28/19 07:00 71 23 128/49 (75) 98 01/28/19 06:00 75 25 137/63 (87) 97 01/28/19 05:35 133/56 01/28/19 05:00 70 23 122/96 (105) 97 01/28/19 04:00 69 01/28/19 04:00 98.1 69 22 133/56 (81) 98 01/28/19 04:00 Nasal Cannula 2.0 01/28/19 04:00 2.0 01/28/19 03:00 69 22 104/53 (70) 96 01/28/19 02:48 97 Nasal Cannula 3.0 32 01/28/19 02:00 71 22 113/85 (94) 95 01/28/19 01:10 73 19 99 Bi-Pap 30 01/28/19 01:00 70 24 99 Facial 30 Bi-Pap 30 01/28/19 01:00 70 24 123/51 (75) 98 01/28/19 00:00 71 01/28/19 00:00 99.1 78 22 126/59 (81) 99 01/28/19 00:00 Bi-pap 01/27/19 23:08 30 01/27/19 23:04 76 22 99 Facial 30 01/27/19 23:00 73 18 119/63 (81) 98 01/27/19 22:00 74 18 111/42 (65) 97 01/27/19 21:08 135/58 01/27/19 21:01 95 135/58 01/27/19 21:00 78 23 129/45 (73) 96 01/27/19 20:01 3.0 01/27/19 20:00 98.6 95 25 125/80 (95) 96 01/27/19 20:00 95 01/27/19 20:00 Nasal Cannula 3.0 01/27/19 19:17 87 21 100 Bi-Pap 30 01/27/19 19:05 87 23 99 Facial 30 Bi-Pap 30 01/27/19 19:00 85 23 141/66 (91) 98 01/27/19 17:24 80 22 99 Facial 30 01/27/19 16:00 60 01/27/19 16:00 Bi-pap 01/27/19 16:00 81 01/27/19 15:18 84 24 100 Facial 40 86 24 100 Bi-Pap 01/27/19 14:29 80 135/58 01/27/19 13:21 157/69 01/27/19 13:07 Bi-pap 01/27/19 12:52 80 22 100 Facial 60 01/27/19 12:00 101 01/27/19 11:52 88 30 100 Facial 40 01/27/19 11:28 98.6 91 27 157/69 100 Bi-pap 2.0 40 Intake and Output 01/27/19 01/28/19 19:00 07:00 Intake Total 3840 ml Output Total 200 ml 200 ml Balance 3640 ml -200 ml Intake Oral 340 ml Hemodialysis 3500 ml Output Urine Total 200 ml 200 ml # Voids 1 1 # Bowel Movements 4 General Appearance: no acute distress HEENT: atraumatic Respiratory/Chest: lungs clear, decreased breath sounds Cardiovascular: normal rate Microbiology Date/Time Source Procedure Growth Status 01/27/19 08:25 Rectum Received Laboratory Tests 01/27/19 13:55: Prothrombin Time 20.3H, Prothromb Time International Ratio 2.0H, Troponin I 0.209H Current Medications Medications (Trade) Dose Ordered Sig/Monica Route PRN Reason Start Time Stop Time Status Last Admin Dose Admin Amylase/Lipase/ Protease (Zenpep) 1 ea TID ORAL 01/27/19 13:00 02/26/19 12:59 01/28/19 09:38 Atorvastatin Calcium (Lipitor) 20 mg BEDTIME ORAL 01/27/19 21:00 02/26/19 20:59 01/27/19 21:02 Beclomethasone Dipropionate (Qvar 40 Inhaler) 1 puff TWICE A DAY INH 01/27/19 18:00 02/26/19 17:59 01/28/19 09:38 Budesonide/ Formoterol Fumarate (Symbicort 160/ 4.5) 1 puff TWICE A DAY INH 01/27/19 18:00 02/26/19 17:59 01/28/19 09:38 Carvedilol (Coreg) 12.5 mg EVERY 12 HOURS ORAL 01/27/19 21:00 02/26/19 20:59 01/28/19 09:38 Dextrose (Dextrose 50%) 25 ml Q30M PRN IV Hypoglycemia 01/27/19 13:00 02/26/19 12:59 Dextrose (Dextrose 50%) 50 ml Q30M PRN IV Hypoglycemia 01/27/19 13:00 02/26/19 12:59 Dicyclomine HCl (Bentyl) 10 mg TIDPRN PRN ORAL Abdominal cramps 01/27/19 12:45 02/26/19 12:44 Diltiazem HCl (Cardizem CD) 240 mg BID ORAL 01/27/19 14:00 02/26/19 13:59 01/27/19 14:29 Furosemide (Lasix) 80 mg DAILY ORAL 01/28/19 09:00 02/27/19 08:59 01/28/19 09:00 Heparin Sodium (Porcine) (Heparin Sod 1000 units/ml 10ml) 500 unit ONCE PRN IV HD 01/28/19 06:00 01/28/19 23:59 Hydralazine HCl (Apresoline) 50 mg Q8HR ORAL 01/27/19 14:00 02/26/19 13:59 01/28/19 05:35 Insulin Aspart (NovoLOG) BEFORE MEALS AND HS SUBQ 01/27/19 16:30 02/26/19 16:29 01/28/19 05:36 Insulin Aspart (NovoLOG) 12 units BEFORE MEALS SUBQ 01/28/19 11:30 02/26/19 20:59 Insulin Detemir (Levemir) 33 units BEDTIME SUBQ 01/28/19 21:00 02/26/19 20:59 Ipratropium [place] (Atrovent) 500 mcg Q6HRT N 01/27/19 13:00 02/01/19 12:59 01/28/19 07:25 Levalbuterol HCl (Xopenex) 1.25 mg Q6HRT N 01/27/19 19:00 02/01/19 18:59 01/28/19 07:25 Levothyroxine Sodium (Synthroid) 25 mcg DAILY@0630 ORAL 01/28/19 06:30 02/27/19 06:29 01/28/19 05:35 Losartan Potassium (Cozaar) 100 mg DAILY ORAL 01/28/19 09:00 02/27/19 08:59 Methylprednisolone Sodium Succinate (Solu-MEDROL) 40 mg EVERY 12 HOURS IVP 01/27/19 12:45 02/26/19 12:44 01/28/19 09:00 Warfarin Sodium (Coumadin per pharmacy) 1 ea DAILY PRN MISC Per rx protocol 01/27/19 12:45 02/26/19 12:44 Manish Oviedo MD Jan 28, 2019 11:27
--- NOTE | 2019-01-28 14:30 | Consultation ---
DATE OF CONSULTATION: 01/28/2019 ENDOCRINOLOGY CONSULTATION CONSULTING PHYSICIAN: Markos Farias M.D. REFERRING PHYSICIAN: Manish Oviedo M.D. REASON FOR CONSULTATION: Diabetes management. HISTORY OF PRESENT ILLNESS: The patient is a 68-year-old male with past medical history of insulin-dependent diabetes, end-stage renal disease on hemodialysis, and multiple complications of diabetes, who presented to the hospital with worsening of the shortness of breath, was diagnosed with congestion and hypoxemia, started on BiPAP, admitted to the ICU for observation and treatment, and started on steroids. Glucose is raised. Therefore, Endocrinology was consulted. PAST MEDICAL HISTORY: 1. End-stage renal disease, on hemodialysis. 2. Paroxysmal AFib. 3. CHF. 4. Asthma. 5. Respiratory failure. 6. Diabetes, insulin dependent. 7. Amputations. 8. Retinopathy. PAST SURGICAL HISTORY: 1. Amputations. 2. Dialysis fistula on the left arm. 3. Right below-knee amputation. MEDICATIONS: Reviewed and reconciled. SOCIAL HISTORY: The patient has been a smoker. No alcohol or drug use. Socially lives at home with . 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 REVIEW OF SYSTEMS: A 12-point review of systems was performed and pertinent positives and negatives are mentioned in the history of present illness. ALLERGIES: To dust. LABORATORY DATA: WBC 12.7, hemoglobin 11.3, hematocrit 34.7, platelets of 232. Sodium 142, potassium 4.7, chloride 101, bicarb 25, BUN 91, creatinine 9.6. Troponin 0.2 and 0.2. BNP 29,268. Glucose 269, calcium 6.5. PHYSICAL EXAMINATION: VITAL SIGNS: Blood pressure 137/63, pulse 75, respiratory rate of 25, temperature of 97. HEENT: Pupils are equal and reactive to light. Sclerae anicteric. NECK: Positive for JVD. HEART: Regular. LUNGS: Decreased breath sounds at the base. ABDOMEN: Positive bowel sounds. EXTREMITIES: Right below-knee amputation noted. DIAGNOSES: 1. Pulmonary congestion. 2. Bronchospasm. 3. Diabetes exacerbated by steroids. 4. End-stage renal disease, on hemodialysis. PLAN: 1. Increase the Levemir to 33 units at bedtime. 2. Increase NovoLog to 12 units before each meal. 3. NovoLog sliding scale before meals and at bedtime. 4. Further adjustment according to the blood glucose values and steroid taper. I we will follow the patient during hospital stay. Thank you, Dr. Oviedo, for the courtesy of this consultation. Markos Farias M.D. DR: TONI JOB#: [id number] CC:
[2019-01-28] MEDS ORDERED: Surgicel 4in x 8in TOPIC SCH (17:00)
[2019-01-28 17:42] LABS: ANION GAP 14 mmol/L (5-15); BLOOD UREA NITROGEN 61 mg/dL (7-18); CALCIUM 8.4 MG/DL (8.5-10.1); CARBON DIOXIDE 25 MMOL/L (21-32); CHLORIDE 99 MMOL/L (98-107); CREATININE 5.7 MG/DL (0.55-1.30); POTASSIUM 3.5 MMOL/L (3.5-5.1); SODIUM 138 MMOL/L (136-145)
[2019-01-28 17:44] LABS: INR 2.5 (0.9-1.1)
--- NOTE | 2019-01-28 18:42 | Nephrology Progress Note ---
Assessment/Plan Problem List: (1) CHF exacerbation (2) End-stage renal disease (3) Asthma (4) Diabetes Plan better after dialysis 2x 3.5x2 liters removed, troponin leak, possible transferring to [facility] Subjective Constitutional: Reports: weakness HEENT: Reports: no symptoms Genitourinary: Reports: no symptoms Neurologic/Psychiatric: Reports: no symptoms Subjective less sob off bipap Objective Objective Last 24 Hour Vital Signs Date Time Temp Pulse Resp B/P (MAP) Pulse Ox O2 Delivery O2 Flow Rate FiO2 01/28/19 18:19 72 130/57 01/28/19 18:00 71 19 128/55 (79) 93 01/28/19 17:00 67 22 136/65 (88) 98 01/28/19 16:00 97.9 62 22 118/59 (78) 100 01/28/19 16:00 Nasal Cannula 2.0 Nasal Cannula 2.0 01/28/19 16:00 2.0 01/28/19 16:00 61 01/28/19 15:00 62 23 112/54 (73) 97 01/28/19 14:00 63 25 112/55 (74) 98 01/28/19 14:00 112/55 01/28/19 13:14 63 20 100 Nasal Cannula 2.0 28 64 19 99 01/28/19 13:00 64 24 125/60 (81) 98 01/28/19 12:00 65 01/28/19 12:00 98.1 64 19 119/59 (79) 98 01/28/19 12:00 Nasal Cannula 2.0 Nasal Cannula 2.0 01/28/19 12:00 2.0 01/28/19 11:00 66 23 104/54 (71) 98 01/28/19 10:00 76 26 118/48 (71) 97 01/28/19 09:38 71 119/44 01/28/19 09:00 71 24 119/44 (69) 98 01/28/19 09:00 70 119/44 01/28/19 09:00 119/44 01/28/19 08:00 2.0 01/28/19 08:00 71 01/28/19 08:00 98.6 71 24 120/45 (70) 98 01/28/19 08:00 Nasal Cannula 2.0 Nasal Cannula 2.0 01/28/19 07:35 69 21 99 Nasal Cannula 2.0 28 72 21 98 01/28/19 07:25 98 Nasal Cannula 2.0 28 01/28/19 07:00 71 23 128/49 (75) 98 01/28/19 06:00 75 25 137/63 (87) 97 01/28/19 05:35 133/56 01/28/19 05:00 70 23 122/96 (105) 97 01/28/19 04:00 69 01/28/19 04:00 98.1 69 22 133/56 (81) 98 01/28/19 04:00 Nasal Cannula 2.0 01/28/19 04:00 2.0 01/28/19 03:00 69 22 104/53 (70) 96 01/28/19 02:48 97 Nasal Cannula 3.0 32 01/28/19 02:00 71 22 113/85 (94) 95 01/28/19 01:10 73 19 99 Bi-Pap 30 01/28/19 01:00 70 24 99 Facial 30 Bi-Pap 30 01/28/19 01:00 70 24 123/51 (75) 98 01/28/19 00:00 71 01/28/19 00:00 99.1 78 22 126/59 (81) 99 01/28/19 00:00 Bi-pap 01/27/19 23:08 30 01/27/19 23:04 76 22 99 Facial 30 01/27/19 23:00 73 18 119/63 (81) 98 01/27/19 22:00 74 18 111/42 (65) 97 01/27/19 21:08 135/58 01/27/19 21:01 95 135/58 01/27/19 21:00 78 23 129/45 (73) 96 01/27/19 20:01 3.0 01/27/19 20:00 98.6 95 25 125/80 (95) 96 01/27/19 20:00 95 01/27/19 20:00 Nasal Cannula 3.0 01/27/19 19:17 87 21 100 Bi-Pap 30 01/27/19 19:05 87 23 99 Facial 30 Bi-Pap 30 01/27/19 19:00 85 23 141/66 (91) 98 Intake and Output 01/27/19 01/28/19 19:00 07:00 Intake Total 3840 ml Output Total 200 ml 200 ml Balance 3640 ml -200 ml Intake Oral 340 ml Hemodialysis 3500 ml Output Urine Total 200 ml 200 ml # Voids 1 1 # Bowel Movements 4 Laboratory Tests 01/28/19 14:55: Prothrombin Time 25.3H, Prothromb Time International Ratio 2.5H, Sodium Level 138, Potassium Level 3.5, Chloride Level 99, Carbon Dioxide Level 25, Anion Gap 14, Blood Urea Nitrogen 61H, Creatinine 5.7H, Estimat Glomerular Filtration Rate 12.1, Glucose Level 149#H, Calcium Level 8.4#L, Troponin I 0.328H Height (Feet): 5 Height (Inches): 7.00 Weight (Pounds): 197 General Appearance: no apparent distress, alert EENT: normal ENT inspection Neck: normal alignment Cardiovascular: normal rate, regular rhythm Respiratory/Chest: lungs clear Abdomen: non tender, soft Extremities: no edema Neurologic: program mgr II-XII grossly normal Smith Tidwell MD Jan 28, 2019 18:41
[2019-01-28] MEDS ORDERED: Warfarin Sodium 3mg ORAL SCH (19:30)
[2019-01-28] MEDS ORDERED: Levemir Flexpen SUBQ SCH (21:00)
[2019-01-28] MEDS: Atorvastatin 20mg tab ORAL SCH (21:17)
--- NOTE | 2019-01-28 22:00 | Consultation ---
DATE OF CONSULTATION: 01/27/2019 CARDIOLOGY CONSULTATION CONSULTING PHYSICIAN: Eloy Ruby M.D. REASON FOR CONSULTATION: Pulmonary edema and elevated troponin level. HISTORY OF PRESENT ILLNESS: This is a 68-year-old male with end-stage renal disease, hypertensive cardiomyopathy, and coronary atherosclerosis. He developed shortness of breath and congestion at home. He came to the emergency room and was noted to be in pulmonary edema, respiratory failure required BiPAP support. Troponin level elevation was noted as well. I have been asked to assist with cardiovascular care. The patient has had regular dialysis sessions and has been compliant with medications. PAST MEDICAL HISTORY: End-stage renal disease on hemodialysis, asthma, hypertension, hyperlipidemia, diastolic congestive heart failure, history of DVT, paroxysmal atrial fibrillation, insulin-requiring diabetes mellitus, hypothyroidism. ALLERGIES: None. MEDICATIONS: Reviewed and reconciled. SOCIAL HISTORY: Negative for smoking, alcohol, or substance abuse. FAMILY HISTORY: Noncontributory. REVIEW OF SYSTEMS: The patient was hospitalized here less than two weeks ago with rapid atrial fibrillation precipitated by hypoglycemia due to missed meal. He was stabilized with his usual medications and discharged home. He is on chronic anticoagulation. PHYSICAL EXAMINATION: VITAL SIGNS: Blood pressure 135/58, pulse 74, respiratory rate 18, afebrile. LUNGS: Bilateral rales. Accessory muscle use. HEART: Irregularly irregular rhythm. Normal S1, S2. A 1/6 systolic apical murmur. ABDOMEN: Soft. EXTREMITIES: Trace edema. Palpable bruit over the left upper extremity. LABORATORY AND DIAGNOSTIC DATA: Notable for troponin #1 is 0.219, troponin #2 is 0.209. Pronatriuretic peptide 29,000. IMPRESSION: 1. Acute respiratory failure. 2. Paroxysmal bronchospasm. 3. Acute pulmonary edema. 4. Acute myocardial ischemia. 5. End-stage renal disease. 6. Paroxysmal atrial fibrillation. 7. History of DVT. PLAN: 1. BiPAP support. 2. Full anticoagulation. 3. Continue beta-evens and diltiazem. 4. Hemodialysis with ultrafiltration. 5. Anti-failure therapy with titration based on clinical parameters. Eloy Ruby M.D. DR: Angela JOB#: [id number] CC:
[2019-01-29] VITALS: BP 125/58
--- NOTE | 2019-01-29 00:45 | Progress Note ---
DATE: 01/28/2019 CARDIOLOGY PROGRESS NOTE SUBJECTIVE: The patient is maintaining sinus rhythm. No chest pain or shortness of breath. OBJECTIVE: VITAL SIGNS: Blood pressure 136/60, pulse 74, respirations 25, afebrile. LUNGS: Clear. CARDIAC: Regular. Normal S1, S2 with a fourth heart sound. ABDOMEN: Soft. EXTREMITIES: No edema. Palpable bruit over the left upper extremity AV fistula. LABORATORY DATA: Troponin increased to 0.328. IMPRESSION: 1. Acute on chronic diastolic congestive heart failure. 2. End-stage renal disease, on hemodialysis. 3. Asthma with paroxysmal bronchospasm. 4. Acute respiratory insufficiency, improved. 5. History of DVT. 6. Paroxysmal atrial fibrillation. 7. Acute myocardial ischemia, precipitated by above and possibly non ST-elevation myocardial infarction. PLAN: 1. Medical management. 2. Previous myocardial perfusion scan revealed low likelihood for flow-limiting coronary disease. 3. Continue anti-arrhythmic regimen with beta-evens and diltiazem. 4. Maintain hemodialysis with ultrafiltration for volume management. 5. Titrate and maximize anti-failure and optimize antihypertensive regimen. 6. Full anticoagulation for cardioembolic prophylaxis and management of DVT. Eloy Ruby M.D. DR: SHWETA JOB#: [id number] CC:
[2019-01-29] MEDS ORDERED: Heparin Sod 1000 units/ml 10ml IV PRN (18:45)
--- NOTE | 2019-01-29 19:51 | Cardiology Report ---
APPROVED REPORT EXAM: Two-dimensional and M-mode echocardiogram with Doppler and color Doppler. INDICATION Dyspnea M-Mode DIMENSIONS IVSd1.1 (0.7-1.1cm)Left Atrium (MM)4.7 (1.6-4.0cm) LVDd5.1 (3.5-5.6cm)Aortic Root3.0 (2.0-3.7cm) PWd1.1 (0.7-1.1cm)Aortic Cusp Exc.2.0 (1.5-2.0cm) LVDs3.5 (2.5-4.0cm) PWs1.8 cm Normal left ventricular chamber size, systolic function and wall motion. Left ventricular ejection fraction estimated to be 55- 60 %. No left ventricular hypertrophy. No evidence of pericardial effusion. Mild left atrial enlargement. Right cardiac chamber sizes are at upper limits of normal. Focal aortic valve sclerosis with adequate cusp excursion. Thickened mitral valve leaflets with normal excursion. Mitral annulus and aortic root calcification. Normal pulmonic valve structure. Normal tricuspid valve structure. IVC at normal size without physiologic collapse. A color flow and spectral Doppler study was performed and revealed: No aortic regurgitation. Mild mitral regurgitation. Mitral inflow indicates normal left ventricular diastolic function. Mild tricuspid regurgitation. Tricuspid systolic velocities suggests peak right ventricular systolic pressure of 41 mmHg consistent with mild pulmonary hypertension. Trace pulmonic regurgitation present.
--- NOTE | 2019-01-30 09:01 | Discharge Summary ---
Discharge Summary Discharge Summary _ DATE OF ADMISSION: 01/27/2019 DATE OF DISCHARGE: 01/29/2019 DISCHARGED BY: Dr. Oviedo REASON FOR ADMISSION: 68 years old male with past medical history of end-stage renal disease, on hemodialysis, hypertension, hyperlipidemia, diabetes mellitus, history of DVT, longstanding asthma, paroxysmal atrial fibrillation, hypothyroidism, presented with respiratory distress . after short evaluation in emergency department patient found to have pulmonary edema and respiratory failure and subsequently was placed on the BiPAP. Troponin was elevated , but patient reported no chest pain. Echocardiogram done in September 2018 revealed diastolic dysfunction. Patient was compliant with dialysis and did not miss any of his dialysis sessions. Patient subsequently admitted to ICU for further management with acute respiratory failure and acute pulmonary edema CONSULTANTS: outcomes manager oracle programmer Dr. Tidwell hop farmer Dr. Farias HOSPITAL COURSE: Patient admitted to ICU. Radiology Specialist and outcomes manager closely followed. Patient required urgent dialysis for fluid overload . Dialysis with ultrafiltration for volume management provided as per oracle programmer with close monitoring of volumes and cardiorenal parameters. Patient started on the IV steroids. Nebulizing treatment with bronchodilator therapy provided stnstm-hio-tihna and as needed. Echocardiogram revealed preserved ejection fraction of 55 to 60% with no evidence of left ventricular hypertrophy. No evidence of pericardial effusion. No evidence of wall motion abnormality. Right ventricular systolic pressure of 41 , consistent with a mild pulmonary hypertension. Serial troponin minimally elevated . Per outcomes manager , acute myocardial ischemia was likely precipitated by acute congestive heart failure and asthma . Patient may have NSTEMI. Painting Department Supervisor recommended medical management of the cardiac condition. Prior myocardial perfusion scan revealed low likelihood for flow-limiting coronary disease. Patient was continued on antiarrhythmic regimen with beta-evens and diltiazem. Anti-failure regimen was titrated and maximized along with optimization of antihypertensive regimen. Blood pressure was managed with multiple antihypertensive mediations, including hydralazine , beta-evens, angiotensin receptor evens and diltiazem. Statin continued. Full anticoagulation for cardioembolic prophylaxis and management of DVT continued with Coumadin. Blood sugar management provided as per hop farmer recommendations. Patient was on long-acting Levemir, short acting NovoLog pre-meal and sliding scale of insulin as needed. Diabetic diet provided. Patient initially was on BiPAP. Patient was placed on steroid inhaler along with bronchodilatory therapy. As patient condition improved , patient was able to be weaned from BiPAP to nasal cannula. Prior to transfer, pulse oximetry was stable on O2 via nasal cannula. There was a concern about flash pulmonary edema and possible coronary artery disease m, given persistently elevated troponin and possible NSTEMI. Patient agreed for transfer to [facility]. Patient was subsequently transferred via [facility] ambulance to [facility] for further cardiac workup and management. FINAL DIAGNOSES: Acute respiratory failure Acute pulmonary edema due to CHF and/or renal failure Acute on chronic diastolic congestive heart failure End-stage renal disease, on dialysis Asthma exacerbation History of DVT Paroxysmal atrial fibrillation Acute myocardial ischemia Possibly non-STEMI Hypertension Hyperlipidemia Diabetes mellitus with severe hyperglycemia DISCHARGE MEDICATIONS: List of medications was sent to accepting facility DISCHARGE INSTRUCTIONS: Patient was transferred to [facility] to higher level of care for further cardiac intervention I have been assigned to dictate discharge summary for this account. I was not involved in the patient's management. Charu Juarez NP Jan 30, 2019 09:01
--- NOTE | 2019-01-30 19:40 | Cardiology Report ---
APPROVED REPORT EKG Measurement Heart [id number] ID [id number] Sinus rhythm with trigeminy fusion complexes including VPC. Cannot rule out Anterior infarct, age undetermined Prolonged QT Abnormal ECG
== END 2019-01-29 00:40 | disposition short-term general hospital (02) | DRG 280 ==
LOC: EDBD 03:35 → EMR 03:57 → 2W 07:30 → EDBEDREQ 08:07 → ICU 10:21 → EDBEDREQ 10:56 → ICU 11:34
PROC: 5A1D70Z Performance of Urinary Filtration, Intermittent, Less than 6 Hours Per Day (ICD-10-PCS; principal; 2019-01-27)
DX: I13.2 Hypertensive heart and chronic kidney disease with heart failure and with stage 5 chronic kidney disease, or end stage renal disease (principal); J96.00 Acute respiratory failure, unspecified whether with hypoxia or hypercapnia; I21.4 Non-ST elevation (NSTEMI) myocardial infarction; N18.6 End stage renal disease; I50.33 Acute on chronic diastolic (congestive) heart failure; J45.901 Unspecified asthma with (acute) exacerbation; E11.65 Type 2 diabetes mellitus with hyperglycemia; I48.0 Paroxysmal atrial fibrillation; Z79.01 Long term (current) use of anticoagulants; Z79.4 Long term (current) use of insulin; E03.9 Hypothyroidism, unspecified; Z86.718 Personal history of other venous thrombosis and embolism; E78.5 Hyperlipidemia, unspecified; E11.319 Type 2 diabetes mellitus with unspecified diabetic retinopathy without macular edema; Z89.511 Acquired absence of right leg below knee; Z87.891 Personal history of nicotine dependence
CPT/HCPCS: 36415; 36600; 71045; 80048; 82803; 82962; 83880; 84484; 85025; 85610; 87081; 93005; 93306; 94640; 94660; 94664; 99291; J1815; S5561

== ENCOUNTER 2019-05-10 07:22 | Inpatient (IN) | payer OTHER, MEDICARE ==
[2019-05-10] VITALS (7 sets, daily range): BP systolic 103–154; BP diastolic 52–79
[~2019-05-10] VITALS: Ht 172.7 cm; Wt 90.0 kg
[2019-05-10] MEDS ORDERED: RENA-VITE RX T1 EAC1 PO (07:47)
[2019-05-10] MEDS ORDERED: AMLODIPINE BESY10 MG ORAL (07:47)
[2019-05-10] MEDS ORDERED: RENVELA0.8 GM ORAL (07:47)
[2019-05-10] MEDS ORDERED: Surgicel 4in x 8in TOPIC ONE (08:00)
--- NOTE | 2019-05-10 08:33 | Diagnostic Imaging Report ---
EXAM: XR Chest, 1 View CLINICAL HISTORY: SOB TECHNIQUE: Frontal view of the chest. COMPARISON: 01/27/19 FINDINGS: Lungs: There is mild perihilar and lower lobe mixed interstitial and alveolar infiltrates. Pleural space: Unremarkable. No pneumothorax. Heart: The heart size is mildly enlarged. Mediastinum: Unremarkable. Bones/joints: Unremarkable. IMPRESSION: Mild perihilar and lower lobe mixed interstitial no infiltrates, likely representing pulmonary edema, pneumonia considered less likely but cannot be completely excluded. Progress films recommended.
[2019-05-10] MEDS ORDERED: Morphine Sulfate 4mg/ml Inj (IV USE ONLY) IVP ONE (09:15)
[2019-05-10 09:21] LABS: ANION GAP 16 mmol/L (5-15); BLOOD UREA NITROGEN 27 mg/dL (7-18); CALCIUM 7.7 MG/DL (8.5-10.1); CARBON DIOXIDE 28 MMOL/L (21-32); CHLORIDE 99 MMOL/L (98-107); CREATININE 6.1 MG/DL (0.55-1.30); POTASSIUM 3.5 MMOL/L (3.5-5.1); SODIUM 143 MMOL/L (136-145)
[2019-05-10 09:25] LABS: ALANINE AMINOTRANSFERASE 21 U/L (12-78); ALBUMIN 3.3 G/DL (3.4-5.0); ALBUMIN/GLOBULIN RATIO 0.8 (1.0-2.7); ALKALINE PHOSPHATASE 97 U/L (46-116); ASPARTATE AMINO TRANSFERASE 19 U/L (15-37); BILIRUBIN,TOTAL 0.6 MG/DL (0.2-1.0)
[2019-05-10 09:27] LABS: BASOPHILS % (AUTO) 1.3 % (0.0-2.0); HEMATOCRIT 34.7 % (42.0-52.0); HEMOGLOBIN 11.3 G/DL (14.2-18.0); LYMPHOCYTES % (AUTO) 5.7 % (20.0-45.0); MEAN CORPUSCULAR VOLUME 94 FL (80-99); MONOCYTES % (AUTO) 8.3 % (1.0-10.0); NEUTROPHILS % (AUTO) 73.7 % (45.0-75.0); PLATELET COUNT 184 K/UL (150-450); RED BLOOD COUNT 3.71 M/UL (4.70-6.10); RED CELL DISTRIBUTION WIDTH 18.3 % (11.6-14.8); WHITE BLOOD COUNT 17.9 K/UL (4.8-10.8)
--- NOTE | 2019-05-10 09:33 | Emergency Room Report ---
History of Present Illness General Chief Complaint: General Complaint Source: Medical Record Present Illness HPI 69-year-old male presents ED for AV fistula bleeding. States that bleeding started around 3 AM. Patient gets dialysis Sunday. States that he also takes Coumadin for "blood clots". Denies pain. States that there is also open blisters and redness to his left leg. Denies fevers or chills. No other aggravating relieving factors. Denies any other associated symptoms COVID-19 risk:Contact w/high r: No COVID-19 risk:Travel to affect: No Has patient experienced kern: No Allergies: Coded Allergies: Dust (Verified Allergy, Unknown, 01/27/19) Patient History Past Medical History: DM, HTN, asthma, COPD, renal disease, dialysis Pertinent Family History: none Social History: Denies: smoking, alcohol use, drug use Immunizations: UTD Reviewed Nursing Documentation: PMH: Agreed; PSxH: Agreed Nursing Documentation-PMH Past Medical History: No History, Except For Hx Cardiac Problems: Yes Hx Hypertension: Yes Hx Asthma: Yes Hx Diabetes: Yes Hx Cancer: No Hx Gastrointestinal Problems: No Hx Dialysis: Yes - LUE graft/port; Dialysis M, W, F Hx Neurological Problems: No Review of Systems All Other Systems: negative except mentioned in HPI Physical Exam Vital Signs Date Time Temp Pulse Resp B/P (MAP) Pulse Ox O2 Delivery O2 Flow Rate FiO2 05/10/19 07:28 98.8 87 18 136/70 (92) 100 Room Air Sp02 EP Interpretation: reviewed, normal General Appearance: no apparent distress, alert, GCS 15, non-toxic Head: normocephalic, atraumatic Eyes: bilateral eye normal inspection, bilateral eye PERRL ENT: hearing grossly normal, normal pharynx, no angioedema, normal voice Neck: full range of motion, supple/symm/no masses Respiratory: chest non-tender, lungs clear, normal breath sounds, speaking full sentences Cardiovascular #1: regular rate, rhythm, no edema, other - bleeding from LUE AV fistula. bruit noted Cardiovascular #2: 2+ carotid (R), 2+ carotid (L), 2+ radial (R), 2+ radial (L) , 2+ dorsalis pedis (R), 2+ dorsalis pedis (L) Gastrointestinal: normal bowel sounds, non tender, soft, non-distended, no guarding, no rebound Rectal: deferred Genitourinary: normal inspection, no CVA tenderness Musculoskeletal: back normal, normal range of motion, gait/station normal, non- tender Neurologic: alert, motor strength/tone normal, oriented x3, sensory intact, responsive, speech normal Psychiatric: judgement/insight normal, memory normal, mood/affect normal, no suicidal/homicidal ideation Reflexes: 3+ bicep (R), 3+ bicep (L), 3+ tricep (R), 3+ tricep (L), 3+ knee (R) , 3+ knee (L) Skin: other - blisters on LLE. erythema/induration noted Lymphatic: no adenopathy Medical Decision Making Diagnostic Impression: Primary Impression: Dialysis AV fistula malfunction Qualified Codes: T82.590A - Other mechanical complication of surgically created arteriovenous fistula, initial encounter Additional Impression: Left leg cellulitis ER Course Hospital Course 69-year-old male presents to ED with redness, swelling to LLE. bleeding from AV fistula Differential diagnoses include: Cellulitis, abscess, rash. Clinical course Patient placed on stretcher. After initial history and physical I ordered labs , blood Cx, UA Pressure dressing and Surgicel were used to control bleeding but unsuccessful. I placed a [id number] suture which provided adequate hemostasis. Additional Surgicel and pressure dressing applied. labs reviewed - leukocytosis, Hb/Hct stable, BUN/Cr elevated antibiotics given. Patient admitted to Dr Wong's service. Dr Tidwell (nephrology) will consult. Dr Barrios will re-evaluate the fistula. Diagnosis - dialysis AV fistula malfunction, left leg cellulitis admitted to telemetry in serious condition Labs Test 05/10/19 07:50 05/10/19 09:00 White Blood Count 17.9 K/UL (4.8-10.8) Red Blood Count 3.71 M/UL (4.70-6.10) Hemoglobin 11.3 G/DL (14.2-18.0) Hematocrit 34.7 % (42.0-52.0) Mean Corpuscular Volume 94 FL (80-99) Mean Corpuscular Hemoglobin 30.4 PG (27.0-31.0) Mean Corpuscular Hemoglobin Concent 32.4 G/DL (32.0-36.0) Red Cell Distribution Width 18.3 % (11.6-14.8) Platelet Count 184 K/UL (150-450) Mean Platelet Volume 5.2 FL (6.5-10.1) Neutrophils (%) (Auto) 73.7 % (45.0-75.0) Lymphocytes (%) (Auto) 5.7 % (20.0-45.0) Monocytes (%) (Auto) 8.3 % (1.0-10.0) Eosinophils (%) (Auto) 11.0 % (0.0-3.0) Basophils (%) (Auto) 1.3 % (0.0-2.0) Sodium Level 143 MMOL/L (136-145) Potassium Level 3.5 MMOL/L (3.5-5.1) Chloride Level 99 MMOL/L (98-107) Carbon Dioxide Level 28 MMOL/L (21-32) Anion Gap 16 mmol/L (5-15) Blood Urea Nitrogen 27 mg/dL (7-18) Creatinine 6.1 MG/DL (0.55-1.30) Estimat Glomerular Filtration Rate 11.2 mL/min (>60) Glucose Level 63 MG/DL (74-106) Calcium Level 7.7 MG/DL (8.5-10.1) Total Bilirubin 0.6 MG/DL (0.2-1.0) Aspartate Amino Transf (AST/SGOT) 19 U/L (15-37) Alanine Aminotransferase (ALT/SGPT) 21 U/L (12-78) Alkaline Phosphatase 97 U/L (46-116) Total Protein 7.6 G/DL (6.4-8.2) Albumin 3.3 G/DL (3.4-5.0) Globulin 4.3 g/dL Albumin/Globulin Ratio 0.8 (1.0-2.7) EKG Diagnostic Results Rate: normal Rhythm: NSR ST Segments: no acute changes ASA given to the pt in ED: No Rhythm Strip Diag. Results EP Interpretation: yes Rhythm: NSR, no PVC's, no ectopy Last Vital Signs Date Time Temp Pulse Resp B/P (MAP) Pulse Ox O2 Delivery O2 Flow Rate FiO2 05/10/19 07:43 84 18 Room Air 05/10/19 07:43 98.8 133/68 100 Status: improved Disposition: XFER SHT-TRM HOSP Condition: Serious Referrals: NON PHYSICIAN (PCP) Micheal Piedra MD May 10, 2019 09:33
[2019-05-10] MEDS ORDERED: Piperacillin/Tazobactam 3.375 GM in NS 110 ML IVPB ONE (10:15)
[2019-05-10 11:26] LABS: INR 4.6 (0.9-1.1)
[2019-05-10] MEDS ORDERED: Acetaminophen 500mg (ES) tab ORAL ONE ×2 (13:30→13:32)
[2019-05-10] MEDS ORDERED: Acetaminophen 650 MG SUPP RECTAL PRN (15:30)
[2019-05-10] MEDS ORDERED: Renvela 800mg Pkt ORAL SCH (18:15)
[2019-05-10] MEDS ORDERED: Vancomycin 1gm in D5W 275ml IVPB ONE (20:00)
--- NOTE | 2019-05-10 20:00 | Consultation ---
History of Present Illness General Date patient seen: May 10, 2019 Reason for Hospitalization: General Complaint Present Illness HPI This is a very pleasant 69-year-old male with multiple medical comorbidities of end-stage renal disease on hemodialysis through left upper extremity fistula that presented to the emergency department at [facility] complaining of acutely bleeding fistula site. Hemostasis was attempted by emergency room physician initially and unsuccessful. surgery called to evaluate and assist with care. After discussing care plan with emergency room physician we discussed placement of a suture and a suture was placed by him and significant hemostasis obtained. Dressings were indicated and placed as instructed and patient was evaluated. Patient also has some cellulitis in his lower extremity with a noted left lower extremity ulcer. Patient seen, patient evaluated, chart reviewed. Allergies: Coded Allergies: Dust (Verified Allergy, Unknown, 01/27/19) Medication History Scheduled Amlodipine Besylate* (Amlodipine Besylate*), 10 MG ORAL DAILY, (Reported) Atorvastatin Calcium* (Atorvastatin Calcium*), 20 MG ORAL BEDTIME, (Reported) Beclomethasone Dipropionate 40MCG Oral Inh (Qvar 40*), 1 PUFF INH TWICE A DAY, ( Reported) Budesonide/Formoterol Fumarate (Symbicort 160-4.5 Mcg Inhaler), 1 PUFF IH BID, ( Reported) Carvedilol (Coreg), 6.25 MG ORAL EVERY 12 HOURS, (Reported) Diltiazem Hcl (Diltiazem 24HR Er), 240 MG PO DAILY, (Reported) Ferric Citrate (Auryxia), 1 TAB PO TID, (Reported) Furosemide* (Lasix*), 80 MG ORAL DAILY, (Reported) Hydralazine Hcl* (Hydralazine Hcl*), 50 MG ORAL EVERY 8 HOURS, (Reported) Insulin Glargine (Lantus), 40 SUBQ BEDTIME, (Reported) Levothyroxine Sodium* (Levothyroxine Sodium*), 25 MCG ORAL DAILY, (Reported) Lipase/Protease/Amylase (Zenpep Dr 25,000 Unit Capsule), 1 EACH PO TID, ( Reported) Losartan Potassium (Losartan Potassium), 100 MG ORAL DAILY, (Reported) Sevelamer Carbonate* (Renvela*), 800 MG ORAL THREE TIMES A DAY, (Reported) Vitamin B Complex & Vit C No.3 (B Complex With Vitamin C), 1 TAB ORAL DAILY, ( Reported) Warfarin Sod* (Warfarin Sod*), 4 MG ORAL QHS, (Reported) Warfarin Sod* (Warfarin Sod*), 3 MG ORAL Mondays, (Reported) Scheduled PRN Dicyclomine Hcl* (Dicyclomine Hcl*), 10 MG ORAL TID PRN for spasm, (Reported) Diphenoxylate Hcl/Atropine (Diphenoxylate-Atropine Tablet), 1 EACH PO BID PRN for Diarrhea, (Reported) Miscellaneous Medications Insulin Lispro (Humalog), 0 SUBQ, (Reported) Vit B Cmplx 3/Fa/Vit C/Biotin (Diana-Aubrey Rx Tablet), 1 EACH PO, (Reported) Patient History History Provided By: Patient, Medical Record, PMD Healthcare decision maker Resuscitation status Advanced Directive on File Past Medical/Surgical History Past Medical/Surgical History: (1) CHF (congestive heart failure) (2) Hypoxia (3) ARF (acute renal failure) (4) Injury of left upper extremity (5) bleeding AV shunt (6) Left leg cellulitis (7) Diabetes (8) Hypertension, benign (9) Anemia in chronic kidney disease (10) Dialysis AV fistula malfunction (11) Abnormal laboratory test result (12) Respiratory distress (13) Hyperglycemia (14) Asthma (15) CHF exacerbation (16) Atrial flutter (17) End-stage renal disease (18) SVT (supraventricular tachycardia) Review of Systems Review of Symptoms General ROS: no weight loss or fever Psychological ROS: no depression or mood changes, no memory loss Ophthalmic ROS: no visual changes or eye irritation ENT ROS: no nasal congestion, hearing loss, dizziness Allergy and Immunology ROS: no allergic symptoms or urticaria Hematological and Lymphatic ROS: no swollen glands, unusual bleeding or bruising Endocrine ROS: no polyuria, polydipsia, weight changes, temperature intolerance Respiratory ROS: no cough, shortness of breath, or wheezing Cardiovascular ROS: no chest pain or dyspnea on exertion Gastrointestinal ROS: denies abdominal pain, bright red blood in stool. Musculoskeletal ROS: no myalgias or arthralgias Neurological ROS: no TIA or stroke symptoms Dermatological ROS: no new or changing skin lesions, rashes or pruritis Physical Exam Physical Exam General appearance: alert, cooperative, no distress, appears stated age Head: Normocephalic, without obvious abnormality, atraumatic Eyes: conjunctivae/corneas clear. PERRL, EOM's intact. Fundi benign Throat: Lips, mucosa, and tongue normal. Teeth and gums normal Neck: supple, symmetrical, trachea midline, no adenopathy, thyroid: not enlarged, symmetric, no tenderness/mass/nodules, no carotid bruit and no JVD Lungs: clear to auscultation bilaterally Heart: regular rate and rhythm, S1, S2 normal, no murmur, click, rub or gallop Abdomen: soft, non-tender. Bowel sounds normal. No masses, no organomegaly Extremities: extremities left lower extremity cellulitis and a 3 cm x 2 cm superficial skin ulcer mild serous drainage no acute active infectious with abscess identified. No purulent drainage. Left upper extremity with bleeding fistula site. Hemostasis obtained with suture and dressings. Currently stable. Pulses: 2+ and symmetric Skin: Skin color, texture, turgor normal. No rashes or lesions Neurologic: Grossly normal Last 24 Hour Vital Signs Date Time Temp Pulse Resp B/P (MAP) Pulse Ox O2 Delivery O2 Flow Rate FiO2 05/10/19 17:44 Nasal Cannula 2.0 05/10/19 16:01 Nasal Cannula 2.0 05/10/19 14:42 102.7 108 16 134/69 (90) 05/10/19 14:05 99.8 05/10/19 13:59 99.8 98 22 136/86 100 Room Air 05/10/19 13:34 101.1 110 26 154/79 100 Room Air 05/10/19 09:45 98.8 05/10/19 07:43 84 18 Room Air 05/10/19 07:43 98.8 84 18 133/68 100 Room Air 05/10/19 07:28 98.8 87 18 136/70 (92) 100 Room Air Laboratory Tests Test 05/10/19 07:50 05/10/19 09:00 05/10/19 10:25 White Blood Count 17.9 K/UL (4.8-10.8) H Red Blood Count 3.71 M/UL (4.70-6.10) L Hemoglobin 11.3 G/DL (14.2-18.0) L Hematocrit 34.7 % (42.0-52.0) L Mean Corpuscular Volume 94 FL (80-99) Mean Corpuscular Hemoglobin 30.4 PG (27.0-31.0) Mean Corpuscular Hemoglobin Concent 32.4 G/DL (32.0-36.0) Red Cell Distribution Width 18.3 % (11.6-14.8) H Platelet Count 184 K/UL (150-450) Mean Platelet Volume 5.2 FL (6.5-10.1) L Neutrophils (%) (Auto) 73.7 % (45.0-75.0) Lymphocytes (%) (Auto) 5.7 % (20.0-45.0) L Monocytes (%) (Auto) 8.3 % (1.0-10.0) Eosinophils (%) (Auto) 11.0 % (0.0-3.0) H Basophils (%) (Auto) 1.3 % (0.0-2.0) Sodium Level 143 MMOL/L (136-145) Potassium Level 3.5 MMOL/L (3.5-5.1) Chloride Level 99 MMOL/L (98-107) Carbon Dioxide Level 28 MMOL/L (21-32) Anion Gap 16 mmol/L (5-15) H Blood Urea Nitrogen 27 mg/dL (7-18) H Creatinine 6.1 MG/DL (0.55-1.30) H Estimat Glomerular Filtration Rate 11.2 mL/min (>60) Glucose Level 63 MG/DL (74-106) L Calcium Level 7.7 MG/DL (8.5-10.1) L Total Bilirubin 0.6 MG/DL (0.2-1.0) Aspartate Amino Transf (AST/SGOT) 19 U/L (15-37) Alanine Aminotransferase (ALT/SGPT) 21 U/L (12-78) Alkaline Phosphatase 97 U/L (46-116) Total Protein 7.6 G/DL (6.4-8.2) Albumin 3.3 G/DL (3.4-5.0) L Globulin 4.3 g/dL Albumin/Globulin Ratio 0.8 (1.0-2.7) L Prothrombin Time 44.8 SEC (9.30-11.50) H Prothromb Time International Ratio 4.6 (0.9-1.1) H Activated Partial Thromboplast Time 64 SEC (23-33) H Height (Feet): 5 Height (Inches): 8.00 Weight (Pounds): 185 Medications Current Medications Medications (Trade) Dose Ordered Sig/Monica Route PRN Reason Start Time Stop Time Status Last Admin Dose Admin Acetaminophen (Tylenol) 650 mg Q6H PRN RECTAL Mild Pain/TEMP>101 05/10/19 15:30 06/09/19 15:29 Amlodipine Besylate (Norvasc) 10 mg DAILY ORAL 05/11/19 09:00 06/10/19 08:59 Atorvastatin Calcium (Lipitor) 20 mg BEDTIME ORAL 05/10/19 21:00 08/08/19 20:59 Budesonide/ Formoterol Fumarate (Symbicort 160/ 4.5) 1 puff Q12HR INH 05/10/19 21:00 08/08/19 20:59 Carvedilol (Coreg) 6.25 mg EVERY 12 HOURS ORAL 05/10/19 21:00 06/09/19 20:59 Dextrose (Dextrose 50%) 25 ml Q30M PRN IV Hypoglycemia 05/10/19 18:00 08/08/19 17:59 Dextrose (Dextrose 50%) 50 ml Q30M PRN IV Hypoglycemia 05/10/19 18:00 08/08/19 17:59 Diltiazem HCl (Cardizem CD) 240 mg DAILY ORAL 05/11/19 09:00 06/10/19 08:59 Furosemide (Lasix) 80 mg DAILY ORAL 05/11/19 09:00 06/10/19 08:59 Hydralazine HCl (Apresoline) 50 mg Q8HR ORAL 05/10/19 22:00 08/08/19 21:59 Insulin Aspart (NovoLOG) BEFORE MEALS AND HS SUBQ 05/10/19 21:00 08/08/19 20:59 Insulin Detemir (Levemir) 18 units BEDTIME SUBQ 05/10/19 21:00 08/08/19 20:59 Levothyroxine Sodium (Synthroid) 25 mcg DAILY@0630 ORAL 05/11/19 06:30 06/10/19 06:29 Losartan Potassium (Cozaar) 100 mg DAILY ORAL 05/11/19 09:00 06/10/19 08:59 Piperacillin Sod/ Tazobactam Sod 2.25 gm/Dextrose 55 ml @ 110 mls/hr Q8HR IV 05/10/19 22:00 05/15/19 21:59 Sevelamer Carbonate (Renvela) 800 mg THREE TIMES A DAY ORAL 05/10/19 18:00 08/08/19 17:59 05/10/19 19:21 Vancomycin HCl (Vanco rx to dose) 1 ea DAILY PRN MISC Per rx protocol 05/10/19 18:00 06/09/19 17:59 Vancomycin HCl 1 gm/Dextrose 275 ml @ 183.708 mls/hr ONCE ONCE IVPB 05/10/19 20:00 05/10/19 21:29 Vitamin B Complex (Vitamin B Complex) 1 tab DAILY ORAL 05/11/19 09:00 08/09/19 08:59 Warfarin Sodium (Coumadin per pharmacy) 1 ea DAILY PRN MISC Per rx protocol 05/10/19 15:00 06/09/19 14:59 Assessment/Plan Problem List: (1) Left leg cellulitis Assessment & Plan: extremities left lower extremity cellulitis and a 3 cm x 2 cm superficial skin ulcer mild serous drainage no acute active infectious with abscess identified. No purulent drainage. Left upper extremity with bleeding fistula site. Hemostasis obtained with suture and dressings. Currently stable. We will monitor closely. Dressings were changed at bedside pieces of Surgicel was placed over the bleeding site sutures stable. No active bleeding noted. Patient is on blood thinners and we need to monitor closely. Discussed with patient and staff. Leave dressings until possibility of removal by myself tomorrow. If bleeding or saturated please call me. Furthermore as for the left lower extremity ulcer. Please apply Thera honey followed by foam dressing. Will monitor to ensure healing. Duplex studies ordered. Labs reviewed. Thank you for let me participate in patient's care ICD Codes: L03.116 - Cellulitis of left lower limb SNOMED: [id number] (2) bleeding AV shunt (3) Dialysis AV fistula malfunction Assessment & Plan: as above ICD Codes: T82.590A - Other mechanical complication of surgically created arteriovenous fistula, initial encounter SNOMED: 090414208 Qualifiers: Qualified Codes: T82.590A - Other mechanical complication of surgically created arteriovenous fistula, initial encounter Bolivar Barrios May 10, 2019 20:00
[2019-05-10] MEDS: NovoLOG Insulin Flexpen SUBQ SCH (21:00)
[2019-05-10] MEDS: Levemir Flexpen SUBQ SCH (21:00)
[2019-05-10] MEDS: Atorvastatin 20mg tab ORAL SCH (21:22)
[2019-05-10] MEDS: Carvedilol 6.25mg Tab ORAL SCH (21:22)
[2019-05-10] MEDS: HydrALAZINE 50mg tab ORAL SCH (22:00)
[2019-05-10] MEDS ORDERED: Piperacillin/Tazobactam 3.375 GM in NS 110 ML IVPB SCH (22:00)
[2019-05-10] MEDS: Zosyn 2.25 gm in D5W 55ml IV SCH (23:17)
[2019-05-11] VITALS (8 sets, daily range): BP systolic 96–124; BP diastolic 49–59
[2019-05-11] MEDS: Zosyn 2.25 gm in D5W 55ml IV SCH ×3 (05:26→20:55)
[2019-05-11] MEDS: HydrALAZINE 50mg tab ORAL SCH ×3 (05:26→20:56)
[2019-05-11] MEDS ORDERED: Levothyroxine 25mcg tab ORAL SCH (06:30)
[2019-05-11] MEDS: NovoLOG Insulin Flexpen SUBQ SCH ×4 (06:31→20:53)
[2019-05-11 08:33] LABS: HEMATOCRIT 32.9 % (42.0-52.0); HEMOGLOBIN 10.5 G/DL (14.2-18.0); MEAN CORPUSCULAR VOLUME 93 FL (80-99); PLATELET COUNT 163 K/UL (150-450); RED BLOOD COUNT 3.52 M/UL (4.70-6.10); RED CELL DISTRIBUTION WIDTH 17.9 % (11.6-14.8); WHITE BLOOD COUNT 21.4 K/UL (4.8-10.8)
[2019-05-11 08:37] LABS: INR 2.8 (0.9-1.1)
[2019-05-11 08:57] LABS: ANION GAP 18 mmol/L (5-15); BLOOD UREA NITROGEN 48 mg/dL (7-18); CALCIUM 7.3 MG/DL (8.5-10.1); CARBON DIOXIDE 26 MMOL/L (21-32); CHLORIDE 95 MMOL/L (98-107); POTASSIUM 3.3 MMOL/L (3.5-5.1); SODIUM 139 MMOL/L (136-145)
[2019-05-11] MEDS ORDERED: Furosemide 80mg tab ORAL SCH (09:00)
[2019-05-11] MEDS ORDERED: Vitamin B Complex Tab ORAL SCH (09:00)
[2019-05-11] MEDS ORDERED: dilTIAZem HCl CD 240mg cap ORAL SCH (09:00)
[2019-05-11] MEDS ORDERED: Losartan 50mg tab ORAL SCH (09:00)
[2019-05-11] MEDS: Carvedilol 6.25mg Tab ORAL SCH ×2 (09:06→20:51)
--- NOTE | 2019-05-11 15:02 | Surgery Progress Note ---
Surgery Progress Note Subjective Additional Comments Good hemostasis noted in the left upper extremity fistula. No bleeding. Dressings dry. States he feels well. Does still have some cellulitis in his lower extremity. Mild tenderness on palpation. We will continue to monitor. Objective Last 24 Hour Vital Signs Date Time Temp Pulse Resp B/P (MAP) Pulse Ox O2 Delivery O2 Flow Rate FiO2 05/11/19 12:00 98.1 96 18 103/59 (74) 96 05/11/19 09:20 Room Air 05/11/19 09:20 80 20 98 Room Air 21 05/11/19 09:10 87 124/56 05/11/19 09:06 124/56 05/11/19 09:06 87 124/56 05/11/19 09:05 87 124/56 (78) 05/11/19 09:05 87 124/56 05/11/19 08:00 98.9 83 18 110/56 (74) 98 05/11/19 07:29 78 20 97 Room Air 21 05/11/19 05:26 114/56 05/11/19 04:00 99.0 81 19 114/56 (75) 94 05/11/19 03:47 98.9 05/10/19 23:42 98.9 84 19 109/59 (76) 98 05/10/19 22:48 89 103/52 (69) 05/10/19 22:20 Room Air 05/10/19 22:10 82 20 97 Room Air 21 05/10/19 22:09 81 20 97 Room Air 21 05/10/19 21:22 89 108/55 05/10/19 20:24 99.2 89 19 108/55 (72) 98 05/10/19 18:30 100.2 05/10/19 17:44 Nasal Cannula 2.0 05/10/19 16:01 Nasal Cannula 2.0 I&O Intake and Output 05/10/19 05/11/19 19:00 07:00 Intake Total 710 ml 535 ml Balance 710 ml 535 ml Intake Oral 0 ml 480 ml IV Total 110 ml 55 ml Other 600 ml # Voids 1 # Bowel Movements 2 1 Dressing: saturated Wound: other Drains: other Cardiovascular: RSR Respiratory: decreased breath sounds Abdomen: soft, non-tender, present bowel sounds, non-distended Extremities: edema, tenderness, no cyanosis Laboratory Tests Test 05/11/19 07:40 05/11/19 08:15 White Blood Count 21.4 K/UL (4.8-10.8) H Red Blood Count 3.52 M/UL (4.70-6.10) L Hemoglobin 10.5 G/DL (14.2-18.0) L Hematocrit 32.9 % (42.0-52.0) L Mean Corpuscular Volume 93 FL (80-99) Mean Corpuscular Hemoglobin 29.9 PG (27.0-31.0) Mean Corpuscular Hemoglobin Concent 32.0 G/DL (32.0-36.0) Red Cell Distribution Width 17.9 % (11.6-14.8) H Platelet Count 163 K/UL (150-450) Mean Platelet Volume 5.2 FL (6.5-10.1) L Neutrophils (%) (Auto) % (45.0-75.0) Lymphocytes (%) (Auto) % (20.0-45.0) Monocytes (%) (Auto) % (1.0-10.0) Eosinophils (%) (Auto) % (0.0-3.0) Basophils (%) (Auto) % (0.0-2.0) Differential Total Cells Counted 100 Neutrophils % (Manual) 84 % (45-75) H Lymphocytes % (Manual) 8 % (20-45) L Monocytes % (Manual) 3 % (1-10) Eosinophils % (Manual) 5 % (0-3) H Basophils % (Manual) 0 % (0-2) Band Neutrophils 0 % (0-8) Platelet Estimate Adequate Platelet Morphology Normal Hypochromasia 1+ Anisocytosis 1+ Prothrombin Time 28.6 SEC (9.30-11.50) H Prothromb Time International Ratio 2.8 (0.9-1.1) H Sodium Level 139 MMOL/L (136-145) Potassium Level 3.3 MMOL/L (3.5-5.1) L Chloride Level 95 MMOL/L (98-107) L Carbon Dioxide Level 26 MMOL/L (21-32) Anion Gap 18 mmol/L (5-15) H Blood Urea Nitrogen 48 mg/dL (7-18) H Creatinine 9.0 MG/DL (0.55-1.30) H Estimat Glomerular Filtration Rate 7.2 mL/min (>60) Glucose Level 281 MG/DL (74-106) #H Calcium Level 7.3 MG/DL (8.5-10.1) L Plan Problems: (1) Left leg cellulitis Assessment & Plan: extremities left lower extremity cellulitis and a 3 cm x 2 cm superficial skin ulcer mild serous drainage no acute active infectious with abscess identified. No purulent drainage. Left upper extremity with bleeding fistula site. Hemostasis obtained with suture and dressings. Currently stable. We will monitor closely. Dressings were changed at bedside pieces of Surgicel was placed over the bleeding site sutures stable. No active bleeding noted. Patient is on blood thinners and we need to monitor closely. Discussed with patient and staff. Leave dressings until possibility of removal by myself tomorrow. If bleeding or saturated please call me. Furthermore as for the left lower extremity ulcer. Please apply Thera honey followed by foam dressing. Will monitor to ensure healing. Duplex studies ordered. Labs reviewed. Plain films ordered Antibiotics as per infectious disease Thank you for let me participate in patient's care (2) bleeding AV shunt (3) Dialysis AV fistula malfunction Assessment & Plan: as above Bolivar Barrios May 11, 2019 15:02
[2019-05-11] MEDS ORDERED: HYDROcodone/Acetamin 5/325 tab ORAL PRN (15:15)
--- NOTE | 2019-05-11 15:30 | History and Physical Report ---
DATE OF ADMISSION: 05/10/2019 HISTORY OF PRESENT ILLNESS: This is a 69-year-old male, who presented to the emergency room with a history of bleeding AV fistula. This started bleeding a day before yesterday at about 3 a.m. He typically does dialysis Sunday, Sunday, Sunday. He also is on Coumadin for DVT. The patient has blisters to his left lower extremity. He was admitted to the hospital. He was seen overnight by General Surgery. In the ER, he had a [id number] suture placed also by the emergency room physician. At this time, the patient states he is feeling better. He has been started on antibiotics. He has a notable ulcer on his left lower extremity. HOME MEDICATIONS: Amlodipine, Lipitor, Coreg, Cardizem, Lasix, hydralazine, Lantus, Synthroid, and Coumadin. REVIEW OF SYSTEMS: Denies any headaches, hematemesis, melena, hematochezia, night sweats, or weight loss. PHYSICAL EXAMINATION: GENERAL: Reveals a 69-year-old male. HEENT: Unremarkable. LUNGS: Clear breath sounds bilaterally. ABDOMEN: Soft. EXTREMITIES: There is a left upper extremity fistula with dressing in place. He has a right BKA. Lower extremity shows a small area of cellulitis with open wound. LABORATORY DATA: Laboratory testing shows white count 21,000, hemoglobin of 10, platelet count is normal. Chemistries notable for creatinine of 9. Coags show INR of 2.8 today. IMAGING STUDIES: X-ray of chest was obtained, which shows bibasilar infiltrates. Please also note that initially the patient presented with a glucose of 63. IMPRESSION: 1. Hypoglycemia. 2. Left lower extremity cellulitis and ulcer. 3. Bleeding AV fistula. 4. ESRD on dialysis. 5. Diabetes mellitus. 6. Hypertension. DISCUSSION: Admit to the hospital. I have consulted with Surgery and Nephrology, will also consult ID. I have held his Lantus for the time being, but will resume today. Given his sugars have improved, we will follow carefully. Ming Wong M.D. : SAM/ELOINA JOB#: [id number] CC:
--- NOTE | 2019-05-11 16:30 | Consultation ---
DATE OF CONSULTATION: 05/10/2019 NEPHROLOGY CONSULTATION CONSULTING PHYSICIAN: Smith Tidwell M.D. REFERRING PHYSICIAN: Ming Wong M.D. REASON FOR CONSULTATION: End-stage renal disease. HISTORY OF PRESENT ILLNESS: The patient is well known to me. He is a 69-year-old man with end-stage renal disease on dialysis, insulin-dependent diabetes, hypertension, paroxysmal atrial fibrillation on warfarin maintenance, peripheral vascular disease. He presented to the emergency room with bleeding from the left arm AV fistula that was controlled in the emergency room with pressure, had elevated INR. The patient also a day prior to coming in the hospital, his told me that he is having worsening lesions on his left leg with some drainage but he refused to have these exam in the outpatient dialysis unit. He was scheduled to see PCP in the office this coming week. The patient in the emergency room had fever of 101. History is significant for paroxysmal atrial fibrillation, recurrent episodes of congestive heart failure, asthma, obesity, noncompliance with dietary and medication recommendations as an outpatient. His ProTime monitored by another physician. He has had elevated INRs in the past. PAST SURGICAL HISTORY: Include removal of half of the pancreas, several toe amputations, right below-knee amputation, eye surgeries for retinal detachment, laser surgery to the eye, dialysis fistula left arm, dialysis PermCath, right below-knee amputation. HOME MEDICATIONS: He cannot give an adequate list. See the list in the computer but I cannot confirm at this time. HABITS: Nonsmoker and nondrinker. SOCIAL HISTORY: Lives with his , who is a nurse. He is retired and disabled. SYSTEM REVIEW: HEAD, EYES, EARS, NOSE, THROAT: History of eye surgeries as above with stable vision. Hearing is good. ENDOCRINE: History of diabetes and obesity. The diabetes apparently occurred after pancreas surgery. PULMONARY: History of asthma and prior respiratory failure, requiring BiPAP. No known TB. CARDIAC: History of paroxysmal atrial fibrillation with rapid ventricular rate. History of congestive heart failure. He has not had coronary angiogram although he has had episodes of chest pain in the past. GASTROINTESTINAL: He has had diarrhea and history of pancreatic insufficiency. No current abdominal pain. GENITOURINARY: No dysuria or hematuria. NEUROLOGIC: No CVA or seizures. There is a history of diabetic neuropathy and Charcot joints. PHYSICAL EXAMINATION: GENERAL: The patient is alert man, lying in bed, in no acute distress. VITAL SIGNS: Temperature 98.1, pulse 96, respiratory rate 18, blood pressure 103/59. HEAD, EYES, EARS, NOSE, THROAT: Sclerae are nonicteric. Ocular motions intact in all directions. Oral mucosa moist. NECK: No adenopathy. LUNGS: Clear. HEART: Rhythm is regular with frequent ectopic beats. I hear no murmur. ABDOMEN: Obese and soft without organomegaly. EXTREMITIES: Trace edema. There is a right below-knee amputation. Left leg has a large bulky dressing. Above the dressing there is some generalized erythema and cellulitis of the lower leg. NEUROLOGIC: He is alert and oriented. Cranial nerves are intact. PERTINENT LABORATORY DATA: Show white count of 21.4, hemoglobin is 10.5. Potassium 3.3, BUN 48, creatinine 9. Calcium is 7.3. IMPRESSION: 1. Status post bleeding from dialysis fistula secondary to prolonged INR, this seems to be resolved at this time. 2. End-stage renal disease. 3. History of warfarin maintenance. 4. Cellulitis and ulceration of the left lower extremity. Photos are reviewed showing a large areas of denuded skin and ulceration. 5. Paroxysmal atrial fibrillation. 6. Congestive heart failure, chronic. 7. History of asthma. PLAN: The patient will be observed and treated with broad-spectrum antibiotics for his cellulitis and possible underlying early sepsis. The patient will receive wound care and dialysis in the hospital and will need to have a plan for further treatment in the outpatient setting. Smith Tidwell M.D. DR: Teri JOB#: [id number] CC:
[2019-05-11] MEDS ORDERED: Warfarin Sodium 4mg PO SCH (17:00)
[2019-05-11] MEDS: Atorvastatin 20mg tab ORAL SCH (20:53)
[2019-05-11] MEDS: Levemir Flexpen SUBQ SCH (20:53)
[2019-05-12] VITALS: BP 101/54
[2019-05-12] MEDS ORDERED: Heparin Sod 1000 units/ml 10ml IV PRN (06:00)
--- NOTE | 2019-05-12 07:41 | Discharge Summary ---
Discharge Summary Discharge Summary _ DATE OF ADMISSION: 05/10/2019 DATE OF DISCHARGE: 05/11/2019 Patient left AGAINST MEDICAL ADVICE REASON FOR ADMISSION: 69 years old male with past medical history of end-stage renal disease, on hemodialysis, diabetes mellitus, hypertension, asthma/COPD, paroxysmal atrial fibrillation, hypothyroidism, on anticoagulation therapy with Coumadin, presented to emergency department due to AV fistula bleeding. Bleeding started at night. He also reported open blisters and redness in the left leg. He denied fever and chills. Upon evaluation vital signs were stable. Laboratory work-up revealed leukocytosis with WBC 17.9, hemoglobin 11.3, hematocrit 34.7, platelet count 184. INR 4.6. Stable electrolytes. BUN 27, creatinine 6.1, consistent with known history of end-stage renal disease. Glucose 63. EKG reveals sinus rhythm no acute ischemic changes. Chest x-ray revealed bibasilar infiltrates, more consistent with pulmonary edema , less likely pneumonia, but follow-up chest x-ray was recommended. Patient received empiric antibiotic and admitted to telemetry floor for AV fistula bleeding and left leg cellulitis CONSULTANTS: spa associate Dr. Tidwell surgery Dr. Barrios [facility] COURSE: Patient admitted to medical surgical floor and started on empiric antibiotics. Coumadin initially was hold. Bleeding stopped. The next day INR 2.8. Patient restarted on Coumadin Insulin initially was hold due to hypoglycemia and resumed the next day. At the time of this dictation blood culture negative. Patient was on empiric antibiotic as mentioned above. Leukocytosis persisted, D next day 21.4. Patient initially had fevers, which resolved the next day. Dialysis was ordered for 05/11. (dialysis days Sunday). Wound care for left leg ulcers provided as per surgeon recommendation. Home medication continued. According to patient's insurance, patient required transfer to insurance affiliated hospital/ [facility]. Patient declined transfer when ambulance arrived. Patient decided to leave AGAINST MEDICAL ADVICE. The risks and consequences of signing AGAINST MEDICAL ADVICE were discussed with patient in detail. Patient verbalized understanding, nevertheless signed AMA form and left. FINAL DIAGNOSES: Left lower extremity cellulitis with ulcer Bleeding AV fistula, likely due to prolonged INR -resolved Anticoagulation therapy End-stage renal disease, on hemodialysis Hypoglycemia Diabetes mellitus Hypertension Chronic congestive heart failure History of asthma Paroxysmal atrial fibrillation I have been assigned to dictate discharge summary for this account. I was not involved in the patient's management. Charu Juarez NP May 12, 2019 07:41
== END 2019-05-11 23:50 | disposition left against medical advice (07) | DRG 314 ==
LOC: EMR 08:00 → 4E 11:54 → EDBEDREQ 13:59 → 4E 14:37
DX: T82.838A Hemorrhage due to vascular prosthetic devices, implants and grafts, initial encounter (principal); N18.6 End stage renal disease; L03.116 Cellulitis of left lower limb; I13.2 Hypertensive heart and chronic kidney disease with heart failure and with stage 5 chronic kidney disease, or end stage renal disease; L97.829 Non-pressure chronic ulcer of other part of left lower leg with unspecified severity; Y83.2 Surgical operation with anastomosis, bypass or graft as the cause of abnormal reaction of the patient, or of later complication, without mention of misadventure at the time of the procedure; R79.1 Abnormal coagulation profile; Z99.2 Dependence on renal dialysis; I48.0 Paroxysmal atrial fibrillation; E11.649 Type 2 diabetes mellitus with hypoglycemia without coma; E11.22 Type 2 diabetes mellitus with diabetic chronic kidney disease; I50.9 Heart failure, unspecified; J45.909 Unspecified asthma, uncomplicated; Z79.4 Long term (current) use of insulin; Z89.511 Acquired absence of right leg below knee
CPT/HCPCS: 36415; 71045; 80048; 80053; 82962; 85007; 85025; 85610; 85730; 86850; 86900; 86901; 87040; 87081; 93005; 94640; 96365; 96375; 99285; J1815; S5561

== ENCOUNTER 2019-06-06 19:48 | Emergency (ER) | payer OTHER, MEDICARE ==
[~2019-06-06] VITALS: Ht 177.8 cm; Wt 81.6 kg
[2019-06-06 19:55] VITALS: BP 145/78
--- NOTE | 2019-06-06 19:55 | NUR ---
ED Nurse Note: Pt brought in by DANIEL from dialysis center c/o bleeding AV shunt on left arm. Denies pain. L shunt is actively bleeding out from the dressing that was applied at the dialysis center. ERMD removed old dressing and applied surgi cell with wrapping. Post dressing, currently not bleeding out. Blood drawn and sent to lab.Pt vss, nad, aaox4. Will continue to monitor patient.
[2019-06-06] MEDS ORDERED: Surgicel 4in x 8in TOPIC ONE (20:00)
--- NOTE | 2019-06-06 20:02 | Emergency Room Report ---
History of Present Illness General Chief Complaint: General Complaint Source: Patient, Medical Record Present Illness HPI Patient presents with complaints of bleeding from the left AV shunt Patient had dialysis today which was consistent with his Sunday however after dialysis the area continued to bleed Patient is on Coumadin I did receive a call from the patient's neuroscience director na This has happened to the patient previously on several occasions There was no reports of vomiting or diarrhea Patient denies any chest pain or shortness of breath had a full course of dialysis prior to arrival Allergies: Coded Allergies: Dust (Verified Allergy, Unknown, 06/06/19) COVID-19 Screening Contact w/high risk pt: No Recent Travel to affected area: No Experienced COVID-19 symptoms?: No COVID-19 symptoms experienced: Fever (T>100.4F or >38C) Patient History Past Medical History: see triage record Reviewed Nursing Documentation: PMH: Agreed; PSxH: Agreed Nursing Documentation-PMH Hx Cardiac Problems: Yes Hx Hypertension: Yes Hx Asthma: Yes Hx Diabetes: Yes Hx Cancer: No Hx Gastrointestinal Problems: No Hx Dialysis: Yes - LUE graft/port; Dialysis M, W, F Hx Neurological Problems: No Review of Systems All Other Systems: negative except mentioned in HPI Physical Exam Vital Signs Date Time Temp Pulse Resp B/P (MAP) Pulse Ox O2 Delivery O2 Flow Rate FiO2 06/06/19 19:51 98.1 80 16 126/78 (94) 100 Room Air Sp02 EP Interpretation: reviewed, normal General Appearance: no apparent distress Head: normocephalic, atraumatic Eyes: bilateral eye PERRL, bilateral eye EOMI ENT: hearing grossly normal, EOM grossly intact Neck: supple Respiratory: lungs clear, no respiratory distress, no retraction Cardiovascular #1: regular rate, rhythm Gastrointestinal: non tender, soft Musculoskeletal: other - Left upper arm bandage in place patient dripping blood at the site of the bandage also swelling noted at the elbow Neurologic: alert, oriented x3 Skin: other - As above Lymphatic: no adenopathy Procedures Critical Care Time Critical Care Time 40 minutes for multiple re-evaluations critical presentation with active bleeding concerning for hemorrhage and possible cardiopulmonary arrest not including any procedural time Medical Decision Making Diagnostic Impression: Primary Impression: Dialysis AV fistula malfunction Additional Impression: Bleeding from dialysis shunt ER Course Given the patient's presentation Initial work-up was initiated with examination of PT/INR Patient was bleeding from the dialysis site that was bandaged the bandage was slowly removed layer by layer keeping pressure on the active site upon visualization there is active pulsatile hemorrhage from the lower prong Surgicel was applied to the top of this Dressing on top was applied and the patient's arm was elevated and observed Patient's INR is elevated as well patient was provided with vitamin K Given the significant bleeding and the dressing applied patient requires further inpatient care and admission I spoke to the patient's neuroscience director na And the patient admitted for further care Labs Test 06/06/19 20:10 White Blood Count 12.8 K/UL (4.8-10.8) Red Blood Count 3.64 M/UL (4.70-6.10) Hemoglobin 10.4 G/DL (14.2-18.0) Hematocrit 35.3 % (42.0-52.0) Mean Corpuscular Volume 97 FL (80-99) Mean Corpuscular Hemoglobin 28.7 PG (27.0-31.0) Mean Corpuscular Hemoglobin Concent 29.5 G/DL (32.0-36.0) Red Cell Distribution Width 21.2 % (11.6-14.8) Platelet Count 286 K/UL (150-450) Mean Platelet Volume 5.9 FL (6.5-10.1) Neutrophils (%) (Auto) 75.9 % (45.0-75.0) Lymphocytes (%) (Auto) 10.4 % (20.0-45.0) Monocytes (%) (Auto) 8.2 % (1.0-10.0) Eosinophils (%) (Auto) 4.3 % (0.0-3.0) Basophils (%) (Auto) 1.1 % (0.0-2.0) Prothrombin Time 38.4 SEC (9.30-11.50) Prothromb Time International Ratio 3.9 (0.9-1.1) Activated Partial Thromboplast Time 51 SEC (23-33) Sodium Level 141 MMOL/L (136-145) Potassium Level 3.4 MMOL/L (3.5-5.1) Chloride Level 96 MMOL/L (98-107) Carbon Dioxide Level 32 MMOL/L (21-32) Anion Gap 13 mmol/L (5-15) Blood Urea Nitrogen 36 mg/dL (7-18) Creatinine 6.4 MG/DL (0.55-1.30) Estimat Glomerular Filtration Rate 10.5 mL/min (>60) Glucose Level 100 MG/DL (74-106) Calcium Level 8.4 MG/DL (8.5-10.1) Rhythm Strip Diag. Results EP Interpretation: yes Rate: 83 Rhythm: NSR, no PVC's, no ectopy Last Vital Signs Date Time Temp Pulse Resp B/P (MAP) Pulse Ox O2 Delivery O2 Flow Rate FiO2 06/06/19 19:51 98.1 80 16 126/78 (94) 100 Room Air Status: improved Disposition: ADMITTED INPATIENT Condition: Serious Payton Luther DO Jun 06, 2019 20:02
[2019-06-06 20:40] LABS: BASOPHILS % (AUTO) 1.1 % (0.0-2.0); EOSINOPHILS % (AUTO) 4.3 % (0.0-3.0); HEMATOCRIT 35.3 % (42.0-52.0); HEMOGLOBIN 10.4 G/DL (14.2-18.0); LYMPHOCYTES % (AUTO) 10.4 % (20.0-45.0); MEAN CORPUSCULAR VOLUME 97 FL (80-99); MONOCYTES % (AUTO) 8.2 % (1.0-10.0); NEUTROPHILS % (AUTO) 75.9 % (45.0-75.0); PLATELET COUNT 286 K/UL (150-450); RED BLOOD COUNT 3.64 M/UL (4.70-6.10); RED CELL DISTRIBUTION WIDTH 21.2 % (11.6-14.8); WHITE BLOOD COUNT 12.8 K/UL (4.8-10.8)
[2019-06-06 20:44] LABS: ANION GAP 13 mmol/L (5-15); BLOOD UREA NITROGEN 36 mg/dL (7-18); CALCIUM 8.4 MG/DL (8.5-10.1); CARBON DIOXIDE 32 MMOL/L (21-32); CHLORIDE 96 MMOL/L (98-107); CREATININE 6.4 MG/DL (0.55-1.30); POTASSIUM 3.4 MMOL/L (3.5-5.1); SODIUM 141 MMOL/L (136-145)
[2019-06-06 20:54] LABS: INR 3.9 (0.9-1.1)
[2019-06-06] MEDS ORDERED: Phytonadione 10 mg/mL 1ml amp SUBQ ONE (21:30)
[2019-06-06 22:00] VITALS: BP 141/83
--- NOTE | 2019-06-06 22:10 | NUR ---
ED Nurse Note: patient is agitated and requested to speak to the ermd, stating "I will not be admitted". ermd notified and talking with patient at bedside
--- NOTE | 2019-06-06 22:29 | NUR ---
ED Nurse Note: pt dressing is not actively bleeding/saturating with blood. pt is not complaining of pain/discomfort. vss.
[2019-06-06 22:30] VITALS: BP 141/83
--- NOTE | 2019-06-06 22:30 | NUR ---
ED Nurse Note: pt left AMA. ERMD and primary rn explained riskx3 of leaving AMA. After careful explanation, patient stated he does not want to be admitted and wants to go home and insisted on leaving. Pt signed AMA form. Removed all medical devices and patient ambulated with steady gait accompanied by . AMA: SEE AMA FORM.
== END 2019-06-06 22:30 | disposition other institution (70) ==
LOC: EDBD 19:48 → EMR 20:05 → CANBEDREQ 22:41
DX: T82.591A Other mechanical complication of surgically created arteriovenous shunt, initial encounter (principal); Z99.2 Dependence on renal dialysis; I10 Essential (primary) hypertension; E11.9 Type 2 diabetes mellitus without complications; R50.9 Fever, unspecified
CPT/HCPCS: 36415; 80048; 85025; 85610; 85730; 99291; J3430

== ENCOUNTER 2019-10-02 17:46 | Inpatient (IN) | payer OTHER, MEDICARE ==
[~2019-10-02] VITALS: Ht 167.6 cm; Wt 81.2 kg
[~2019-10-02 17:46] MED LIST changes: +AMLODIPINE BES2.5 MG ORAL; +CARDIZEM30 M1 PO; +DICLOXACILLIN250 MG ORAL; +FUROSEMIDE20 M1 ORAL; +HYDRALAZINE HCL10 MG ORAL; +LEVOTHYROXINE75 MCG ORAL
--- NOTE | 2019-10-02 17:55 | NUR ---
ED Nurse Note: Pt brought in by ambulance from home d/t SOB x 1 hour. Pt has hx of COPD and HD on MWF. Pt missed his HD on sunday. Pt having SOB with O2 sat of 98% on room air. A+Ox4, speaking in full sentences. Hr elevated in the 140s upon arrival. BP stable and other vitals stable as documented. Left AV fistula and right chest lilia noted.
[2019-10-02] MEDS ORDERED: Nitroglycerin Subl 0.4mg tab SL ONE (17:57)
--- NOTE | 2019-10-02 17:57 | Emergency Room Report ---
History of Present Illness General Chief Complaint: Dyspnea/Respdistress Source: Patient, EMS Present Illness HPI Patient is a 69-year-old male brought in by EMS after increased shortness of breath. Prior history of end-stage renal disease and cardiac valve replacement. He states that he had missed dialysis and normally dialyzes Sunday and Sunday. He had increased shortness of breath. Denies any recent fever. Prior history of right lower extremity amputation as well as vascular surgery for bypass. Patient is followed by Dr. Tidwell for nephrology. Allergies: Coded Allergies: Dust (Verified Allergy, Unknown, 06/06/19) COVID-19 Screening Contact w/high risk pt: No Recent Travel to affected area: No Experienced COVID-19 symptoms?: Yes COVID-19 symptoms experienced: Fever (T>100.4F or >38C) COVID-19 Testing performed MANAGER TARGET: No Patient History Past Medical History: see triage record Reviewed Nursing Documentation: PMH: Agreed; PSxH: Agreed Nursing Documentation-PMH Past Medical History: No History, Except For Hx Cardiac Problems: Yes Hx Hypertension: Yes Hx Asthma: Yes Hx COPD: Yes Hx Diabetes: Yes Hx Cancer: No Hx Gastrointestinal Problems: No Hx Dialysis: Yes - M, W, F Hx Neurological Problems: No Review of Systems All Other Systems: negative except mentioned in HPI Physical Exam Vital Signs Date Time Temp Pulse Resp B/P (MAP) Pulse Ox O2 Delivery O2 Flow Rate FiO2 10/02/19 17:38 140 22 132/80 (97) 92 Room Air Sp02 EP Interpretation: reviewed, normal General Appearance: normal inspection, alert, thin, Chronically Ill Head: atraumatic ENT: normal ENT inspection, hearing grossly normal, normal voice Neck: normal inspection, full range of motion, supple, no bony tend Respiratory: normal inspection, lungs clear, normal breath sounds, no respiratory distress, no retraction, no wheezing Cardiovascular #1: no edema, tachycardia Gastrointestinal: normal inspection, normal bowel sounds, non tender, soft, no guarding, no hernia Genitourinary: no CVA tenderness Musculoskeletal: back normal, normal range of motion Neurologic: alert, motor strength/tone normal, slimer III-XII nml as tested, responsive, speech normal, normal inspection Psychiatric: normal inspection, judgement/insight normal, mood/affect normal Skin: normal color Procedures Critical Care Time Critical Care Time Patient had a critical medical condition which untreated could potentially result in life or limb threatening injury. Total critical care time excluding procedures approximately 45 minutes. Medical Decision Making Diagnostic Impression: Primary Impression: Atrial flutter Additional Impressions: Bilateral pleural effusion Heart valve replaced ER Course Patient presented for shortness of breath. Differential diagnosis include was not limited to fluid overload, pleural effusion, myocardial infarction, CHF exacerbation among others. Because of complexity of patient's case laboratory tests and imaging studies were ordered. Chest x-ray 1 view interpreted by me showed bilateral pleural effusions right greater than left as well as sternotomy changes. Cardiomegaly. EKG interpreted by me showed atrial flutter with a rate of [address] changes right bundle branch block is present. QTC is 562. Patient was given IV Cardizem as well as nitroglycerin due to fluid overload. Patient will be admitted to the hospital for further management of fluid overload and chronic renal failure.Laboratory testing showed markedly elevated BNP with normal potassium and elevated BUN/ creatinine.Patient was maintained on supplemental oxygen.Dr. Ming Wong was contacted for inpatient management due to capitated physician for [facility]. Dr. Smith Tidwell was contacted for renal consult. Labs Test 10/02/19 18:00 White Blood Count 11.9 K/UL (4.8-10.8) Red Blood Count 3.68 M/UL (4.70-6.10) Hemoglobin 11.4 G/DL (14.2-18.0) Hematocrit 36.4 % (42.0-52.0) Mean Corpuscular Volume 99 FL (80-99) Mean Corpuscular Hemoglobin 30.9 PG (27.0-31.0) Mean Corpuscular Hemoglobin Concent 31.3 G/DL (32.0-36.0) Red Cell Distribution Width 19.0 % (11.6-14.8) Platelet Count 228 K/UL (150-450) Mean Platelet Volume 6.0 FL (6.5-10.1) Neutrophils (%) (Auto) 79.2 % (45.0-75.0) Lymphocytes (%) (Auto) 7.3 % (20.0-45.0) Monocytes (%) (Auto) 10.1 % (1.0-10.0) Eosinophils (%) (Auto) 2.2 % (0.0-3.0) Basophils (%) (Auto) 1.3 % (0.0-2.0) Prothrombin Time 17.3 SEC (9.30-11.50) Prothromb Time International Ratio 1.6 (0.9-1.1) Activated Partial Thromboplast Time 36 SEC (23-33) Sodium Level 140 MMOL/L (136-145) Potassium Level 3.7 MMOL/L (3.5-5.1) Chloride Level 97 MMOL/L (98-107) Carbon Dioxide Level 26 MMOL/L (21-32) Anion Gap 17 mmol/L (5-15) Blood Urea Nitrogen 55 mg/dL (7-18) Creatinine 9.2 MG/DL (0.55-1.30) Estimat Glomerular Filtration Rate 6.9 mL/min (>60) Glucose Level 168 MG/DL (74-106) Calcium Level 6.9 MG/DL (8.5-10.1) Total Bilirubin 0.2 MG/DL (0.2-1.0) Aspartate Amino Transf (AST/SGOT) 32 U/L (15-37) Alanine Aminotransferase (ALT/SGPT) 32 U/L (12-78) Alkaline Phosphatase 320 U/L (46-116) Troponin I 0.033 ng/mL (0.000-0.056) C-Reactive Protein, Quantitative 17.1 mg/dL (0.00-0.90) Pro-B-Type Natriuretic Peptide > 61778 pg/mL (0-125) Total Protein 8.1 G/DL (6.4-8.2) Albumin 2.8 G/DL (3.4-5.0) Globulin 5.3 g/dL Albumin/Globulin Ratio 0.5 (1.0-2.7) Lipase 30 U/L (73-393) EKG Diagnostic Results Rate: tachycardiac Rhythm: other - A flutter ST Segments: no acute changes Rhythm Strip Diag. Results EP Interpretation: yes Rhythm: no PVC's, no ectopy Last Vital Signs Date Time Temp Pulse Resp B/P (MAP) Pulse Ox O2 Delivery O2 Flow Rate FiO2 10/02/19 17:38 140 22 132/80 (97) 92 Room Air Status: improved Disposition: ADMITTED INPATIENT Anopo Blair MD Oct 02, 2019 17:57
[2019-10-02 18:00] VITALS: BP 128/85
[2019-10-02] MEDS ORDERED: dilTIAZem HCl 25mg/5ml Inj IVP ONE (18:15)
[2019-10-02] MEDS ORDERED: Nitroglycerin Subl 0.4mg tab SL PRN ×2 (18:15→20:15)
[2019-10-02 18:48] LABS: BASOPHILS % (AUTO) 1.3 % (0.0-2.0); EOSINOPHILS % (AUTO) 2.2 % (0.0-3.0); HEMATOCRIT 36.4 % (42.0-52.0); HEMOGLOBIN 11.4 G/DL (14.2-18.0); LYMPHOCYTES % (AUTO) 7.3 % (20.0-45.0); MEAN CORPUSCULAR VOLUME 99 FL (80-99); MONOCYTES % (AUTO) 10.1 % (1.0-10.0); NEUTROPHILS % (AUTO) 79.2 % (45.0-75.0); PLATELET COUNT 228 K/UL (150-450); RED BLOOD COUNT 3.68 M/UL (4.70-6.10); WHITE BLOOD COUNT 11.9 K/UL (4.8-10.8)
[2019-10-02 18:56] LABS: ANION GAP 17 mmol/L (5-15); BLOOD UREA NITROGEN 55 mg/dL (7-18); CALCIUM 6.9 MG/DL (8.5-10.1); CARBON DIOXIDE 26 MMOL/L (21-32); CHLORIDE 97 MMOL/L (98-107); CREATININE 9.2 MG/DL (0.55-1.30); POTASSIUM 3.7 MMOL/L (3.5-5.1); SODIUM 140 MMOL/L (136-145)
[2019-10-02 19:04] LABS: INR 1.6 (0.9-1.1)
--- NOTE | 2019-10-02 19:05 | NUR ---
ED Nurse Note: covid swab collected and sent to lab
[2019-10-02 19:06] LABS: ALANINE AMINOTRANSFERASE 32 U/L (12-78); ALBUMIN 2.8 G/DL (3.4-5.0); ALBUMIN/GLOBULIN RATIO 0.5 (1.0-2.7); ALKALINE PHOSPHATASE 320 U/L (46-116); ASPARTATE AMINO TRANSFERASE 32 U/L (15-37); BILIRUBIN,TOTAL 0.2 MG/DL (0.2-1.0)
--- NOTE | 2019-10-02 19:15 | NUR ---
ED Nurse Note: Report given to SHANI Hutchinson. Pt in stable condition; plan of care endorsed.
--- NOTE | 2019-10-02 19:19 | NUR ---
ED Nurse Note: Report received from SHANI Hampton. Pt is resting in bed with safety measures in place. Pt is aaox4. NAD noted. See vitals flow sheet. Will continue to monitor.
[2019-10-02 19:20] VITALS: BP 96/58
--- NOTE | 2019-10-02 20:00 | NUR ---
ED Nurse Note: Pt has redness/wound to sacral area. Pt also has bandage to L leg and states he has wounds under the bandage. Pt refused to allow RNs to undress wound to assess skin integrity on L leg. Photo of sacral wound uploaded to chart.
--- NOTE | 2019-10-02 20:10 | NUR ---
ED Nurse Note: CRE/VRE/MRSA swabs collected and sent to lab.
[2019-10-02] MEDS ORDERED: Miralax 17gm pkt ORAL PRN (20:15)
[2019-10-02] MEDS ORDERED: Lomotil 2.5mg tab ORAL PRN (20:15)
--- NOTE | 2019-10-02 20:15 | NUR ---
ED Nurse Note: Pt has inhaler with him in bed. Pt wishes to keep inhaler with him, refused to have it locked in med box.
--- NOTE | 2019-10-02 20:20 | NUR ---
ED Nurse Note: Report given to SHANI Gonzalez.
--- NOTE | 2019-10-02 20:30 | NUR ---
ED Nurse Note: Pt is stable for transfer to unit per ERMD. Pt is aaox4, no signs of respiratory distress upon depature to unit. Pt remains on 2L oxygen via NC with 100% saturation. Pt taken to unit by RNs via gurney. Pt vital sings remain stable besides tachy HR which ERMD and receiving nurse is aware of. Pt IV is intact. Pt belongings sent to unit with pt. Pt transferred to bed without complication.
[2019-10-02] MEDS ORDERED: Atorvastatin 20mg tab ORAL SCH (21:00)
[2019-10-02] MEDS ORDERED: Levemir Flexpen SUBQ SCH (21:00)
--- NOTE | 2019-10-02 21:00 | NUR ---
NURSE NOTES: Pt admitted to SDU per Marvin. All pt belonging accounted for, pt refused to reliquish Primetene Mist MDI to pharmacy. BP 141/75, P 130, R 20, SpO2 95% on 3L [facility] Brienohnolberto aware of all above and gave no new orders. Bed in lowest position, bed alarm armed, call light within reach. Pt complains of penis pain /, will give tylenol. Will start plan of care and close monitoring.
[2019-10-02] MEDS: Carvedilol 12.5mg tab ORAL SCH (22:26)
[2019-10-02] MEDS: Heparin 5000 units/ml inj SUBQ SCH (22:27)
[2019-10-02] MEDS: dilTIAZem HCl 90mg tab ORAL SCH (22:28)
[2019-10-02] MEDS: NovoLOG Insulin Flexpen SUBQ SCH (22:45)
[2019-10-02] MEDS: Ipratropium 0.02% Inh Soln 2.5ml UD HHN SCH (23:00)
[2019-10-03] VITALS (62 sets, daily range): BP systolic 64–167; BP diastolic 42–112
[2019-10-03] MEDS ORDERED: HYDROmorphone 1mg/ml Carpuject IVP PRN ×3 (01:45→02:00)
[2019-10-03] MEDS: dilTIAZem HCl 90mg tab ORAL SCH ×5 (02:08→23:54)
[2019-10-03] MEDS: Ipratropium 0.02% Inh Soln 2.5ml UD HHN SCH ×6 (02:33→23:10)
--- NOTE | 2019-10-03 03:00 | NUR ---
NURSE NOTES: Pt c/o 11/28 penile pain. Pain glans appears red and swollen. Informed Tirmizi of above and gave orders for Dilaudid. Orders read back, entered into MAR, and carried out. Will continue to monitor closely.
[2019-10-03 04:41] LABS: BASOPHILS % (AUTO) 1.2 % (0.0-2.0); EOSINOPHILS % (AUTO) 2.1 % (0.0-3.0); HEMATOCRIT 33.3 % (42.0-52.0); LYMPHOCYTES % (AUTO) 9.8 % (20.0-45.0); MEAN CORPUSCULAR VOLUME 100 FL (80-99); MONOCYTES % (AUTO) 9.7 % (1.0-10.0); NEUTROPHILS % (AUTO) 77.2 % (45.0-75.0); PLATELET COUNT 202 K/UL (150-450); RED BLOOD COUNT 3.33 M/UL (4.70-6.10); RED CELL DISTRIBUTION WIDTH 17.9 % (11.6-14.8); WHITE BLOOD COUNT 9.8 K/UL (4.8-10.8)
[2019-10-03 04:49] LABS: INR 1.7 (0.9-1.1)
[2019-10-03 05:24] LABS: ANION GAP 16 mmol/L (5-15); BLOOD UREA NITROGEN 59 mg/dL (7-18); CALCIUM 6.6 MG/DL (8.5-10.1); CARBON DIOXIDE 26 MMOL/L (21-32); CHLORIDE 100 MMOL/L (98-107); CHOLESTEROL 105 MG/DL (< 200); CREATININE 9.6 MG/DL (0.55-1.30); HDL CHOLESTEROL 42 MG/DL (40-60); POTASSIUM 3.5 MMOL/L (3.5-5.1); SODIUM 142 MMOL/L (136-145); TRIGLYCERIDES 77 MG/DL (30-150)
--- NOTE | 2019-10-03 05:30 | NUR ---
NURSE NOTES: Informed Marvin that pt is in aFib, Awaiting call back. Pt is asymptomatic. Will monitor closely.
[2019-10-03] MEDS: NovoLOG Insulin Flexpen SUBQ SCH ×4 (06:27→20:51)
--- NOTE | 2019-10-03 07:32 | NUR ---
NURSE NOTES: Pt and report received from SHANI Gonzalez. Pt observed in bed, moaning, c/o penile pain. B/P too low to get pain meds at this time, as endorsed by previous nurse. Pt observed eating his breakfast. Stable/asymptomatic Afib on court recording monitor. Pt is on 3L NC. Pt has Lt AV graft for Hemodialysis. Called [facility], spoke to LYNN, to schedule HD for today. 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 Bed locked and in lowest position, with call light in reach. Will resume plan of care.
--- NOTE | 2019-10-03 07:39 | NUR ---
NURSE HAND-OFF REPORT: Important Events on Shift: New onset of Afib, penile pain 10/29, decreased BP (85/70) Patient Status: Stable Diet: renal Pending Orders: Dialysis Pending Results/Labs: BMP, CBC, DIG, Lipid panel, PT, TSH, Trop, CRE Pending MD notification: Latest Vital Signs: Temperature 99.0 , Pulse 97 , B/P 90 /50 , Respiratory Rate 20 , O2 SAT 99 , Nasal Cannula, O2 Flow Rate 3.0 . Vital Sign Comment: EKG Rhythm: Atrial Fibrillation Rhythm change?: N MD Notified?: Yes MD Response: No new orders Latest Roman Fall Score: 55 Fall Risk: High Risk Safety Measures: Call light Within Reach, Bed Alarm Zone 1, Side Rails Side Rails x3, Bed position Low and Locked. Fall Precautions: Yellow Socks Yes Yellow Gown YEs Door Sign Yes Patient Fall Education Yes Report given to Trisha Colindres RN.
[2019-10-03] MEDS ORDERED: Losartan 50mg tab ORAL SCH (09:00)
[2019-10-03] MEDS ORDERED: Renvela 800mg Pkt ORAL SCH (09:00)
[2019-10-03] MEDS ORDERED: Qvar 40mcg Inhaler 6.8 gm INH SCH (09:00)
[2019-10-03] MEDS ORDERED: Furosemide 80mg tab ORAL SCH (09:00)
[2019-10-03] MEDS ORDERED: Heparin Sod 1000 units/ml 10ml IV PRN ×2 (09:00→13:45)
[2019-10-03] MEDS: Heparin 5000 units/ml inj SUBQ SCH (09:00)
[2019-10-03] MEDS ORDERED: Aspirin Baby 81mg ORAL SCH (09:00)
[2019-10-03] MEDS: Carvedilol 12.5mg tab ORAL SCH ×2 (09:00→20:52)
--- NOTE | 2019-10-03 09:00 | NUR ---
NURSE NOTES: Left message for Dr Tidwell to inform him of pt's low B/P, 77/48.
--- NOTE | 2019-10-03 09:56 | Emergency Room Report ---
History of Present Illness General Chief Complaint: Dyspnea/Respdistress Source: Patient Present Illness HPI A CODE BLUE was called overhead. I responded as the emergency physician in the emergency department. I arrived to the patient's room and CPR was in progress. Per report from the RN caring for this patient, the patient became bradycardic and then became pulseless. The patient does have a history of dialysis and had been hypotensive per her report. I had no other history as this is not my patient. This was repeated x2. Allergies: Coded Allergies: Dust (Verified Allergy, Unknown, 06/06/19) COVID-19 Screening Contact w/high risk pt: No Recent Travel to affected area: No Experienced COVID-19 symptoms?: No COVID-19 symptoms experienced: Fever (T>100.4F or >38C) COVID-19 Testing performed BENCH EXAMINER: No COVID-19 Screening: Negative COVID-19 Nursing Documentation-PMH Past Medical History: No History, Except For Hx Cardiac Problems: Yes Hx Hypertension: Yes Hx Asthma: Yes Hx COPD: Yes Hx Diabetes: Yes Hx Cancer: No Hx Gastrointestinal Problems: Yes Hx Dialysis: Yes Hx Neurological Problems: No Physical Exam Vital Signs Date Time Temp Pulse Resp B/P (MAP) Pulse Ox O2 Delivery O2 Flow Rate FiO2 10/02/19 17:38 140 22 132/80 (97) 92 Room Air 10/02/19 18:00 99.0 10/02/19 19:20 2.0 10/03/19 02:29 28 Sp02 EP Interpretation: other - BVM by RT General Appearance: obese, other Procedures Central Line Central Line : Consent: Emergent Central Line Lumen: triple Maximal Sterile Barrier Tech: yes cap, yes mask, yes sterile gown, yes sterile gloves, yes large sterile sheet, yes hand hygiene, yes chlorhexidine prep No Max Barrier Tech Because: emergency insertion Central Line Postion: femoral (R) US Guided Line?: Yes Vessel visualized with U/S: Right Femoral Vein Ultrasound Findings: Collapsible Vessel Complications: none Central Line Post Position: sutured, good blood return Attempts: One Patient Tolerated: Well Complications: None CPR/Code Blue CPR/Code Blue Narrative See RN record of CODE BLUE. ACLS protocol was followed. The patient was given epi and CPR was performed. The patient was found to have a blood sugar of 59. Therefore, D50 was given. The patient was also intubated by rapid sequence intubation. See my procedure note. Intubation Intubation : Consent: Emergent Intubation Method: orotracheal Tube Size (cm): 7.5 Medications: Etomidate, Rocuronium Breath Sounds after Intubation: equal Intubation Complications: no complications Post Intubation Xray: Yes Progress/Xray Impression: Appropriate tube placement Attempts: One Patient Tolerated: Well Complications: None Medical Decision Making Diagnostic Impression: Primary Impression: Cardiopulmonary arrest ER Course A CODE BLUE was called overhead x2 on this patient. On my initial response the patient was intubated by rapid sequence intubation. The patient responded with a good blood pressure and pulse. Shortly after my return to the emergency department, another CODE BLUE was called. When I arrived, CPR was in progress. Shortly thereafter the patient regained turn to spontaneous circulation. I placed a central line in the right femoral vein. I could not access the right internal jugular because the patient has a perma-cath at that location. The patient continued to have return of spontaneous circulation and was withdrawing from pain and moving. The patient was left under the care of the primary internal medicine physician and the primary critical care physician. See my procedure notes. Last Vital Signs Date Time Temp Pulse Resp B/P (MAP) Pulse Ox O2 Delivery O2 Flow Rate FiO2 10/03/19 08:59 97 Nasal Cannula 2.0 28 10/03/19 08:00 63 10/03/19 07:43 20 20 10/03/19 06:00 90/50 10/03/19 04:00 99.0 Disposition: ADMITTED INPATIENT Condition: Critical Referrals: NON PHYSICIAN (PCP) Teri Mcbride DO Oct 03, 2019 09:56
--- NOTE | 2019-10-03 10:04 | Cardiology Progress Note ---
Assessment/Plan Assessment/Plan The patient is seen and examined, full consult note dictated. Objective Last 24 Hour Vital Signs Date Time Temp Pulse Resp B/P (MAP) Pulse Ox O2 Delivery O2 Flow Rate FiO2 10/03/19 08:59 97 Nasal Cannula 2.0 28 10/03/19 08:00 Nasal Cannula 3.0 10/03/19 08:00 63 10/03/19 08:00 3.0 10/03/19 07:43 80 20 97 Nasal Cannula 2.0 28 78 20 95 10/03/19 06:00 97 90/50 10/03/19 04:00 Nasal Cannula 3.0 10/03/19 04:00 89 10/03/19 04:00 3.0 10/03/19 04:00 99.0 20 103/60 (74) 99 10/03/19 02:36 79 20 96 Nasal Cannula 2.0 28 76 20 95 10/03/19 02:35 78 20 95 Nasal Cannula 2.0 28 10/03/19 02:29 98 Nasal Cannula 2.0 28 10/03/19 02:08 125 146/75 10/03/19 00:00 3.0 10/03/19 00:00 97.4 115 20 141/75 (97) 99 10/03/19 00:00 Nasal Cannula 3.0 10/02/19 23:06 Nasal Cannula 3.0 10/02/19 22:28 141/75 10/02/19 22:28 130 141/75 10/02/19 22:26 130 141/75 10/02/19 20:30 98.8 104 19 132/88 100 Nasal Cannula 2.0 10/02/19 19:20 98.8 114 25 96/58 100 Nasal Cannula 2.0 10/02/19 18:24 136 115/71 10/02/19 18:24 115/71 10/02/19 18:00 142 24 Room Air 10/02/19 18:00 99.0 142 25 128/85 95 Room Air 10/02/19 17:38 140 22 132/80 (97) 92 Room Air Intake and Output 10/02/19 10/03/19 19:00 07:00 Intake Total 300 ml Balance 300 ml Intake Oral 300 ml # Voids 3 Laboratory Tests Test 10/02/19 18:00 10/02/19 22:33 10/03/19 03:40 10/03/19 06:26 White Blood Count 11.9 K/UL (4.8-10.8) H 9.8 K/UL (4.8-10.8) Red Blood Count 3.68 M/UL (4.70-6.10) L 3.33 M/UL (4.70-6.10) L Hemoglobin 11.4 G/DL (14.2-18.0) L 10.0 G/DL (14.2-18.0) L Hematocrit 36.4 % (42.0-52.0) L 33.3 % (42.0-52.0) L Mean Corpuscular Volume 99 FL (80-99) 100 FL (80-99) H Mean Corpuscular Hemoglobin 30.9 PG (27.0-31.0) 29.9 PG (27.0-31.0) Mean Corpuscular Hemoglobin Concent 31.3 G/DL (32.0-36.0) L 30.0 G/DL (32.0-36.0) L Red Cell Distribution Width 19.0 % (11.6-14.8) H 17.9 % (11.6-14.8) H Platelet Count 228 K/UL (150-450) 202 K/UL (150-450) Mean Platelet Volume 6.0 FL (6.5-10.1) L 6.1 FL (6.5-10.1) L Neutrophils (%) (Auto) 79.2 % (45.0-75.0) H 77.2 % (45.0-75.0) H Lymphocytes (%) (Auto) 7.3 % (20.0-45.0) L 9.8 % (20.0-45.0) L Monocytes (%) (Auto) 10.1 % (1.0-10.0) H 9.7 % (1.0-10.0) Eosinophils (%) (Auto) 2.2 % (0.0-3.0) 2.1 % (0.0-3.0) Basophils (%) (Auto) 1.3 % (0.0-2.0) 1.2 % (0.0-2.0) Prothrombin Time 17.3 SEC (9.30-11.50) H 17.6 SEC (9.30-11.50) H Prothromb Time International Ratio 1.6 (0.9-1.1) H 1.7 (0.9-1.1) H Activated Partial Thromboplast Time 36 SEC (23-33) H Sodium Level 140 MMOL/L (136-145) 142 MMOL/L (136-145) Potassium Level 3.7 MMOL/L (3.5-5.1) 3.5 MMOL/L (3.5-5.1) Chloride Level 97 MMOL/L (98-107) L 100 MMOL/L (98-107) Carbon Dioxide Level 26 MMOL/L (21-32) 26 MMOL/L (21-32) Anion Gap 17 mmol/L (5-15) H 16 mmol/L (5-15) H Blood Urea Nitrogen 55 mg/dL (7-18) H 59 mg/dL (7-18) H Creatinine 9.2 MG/DL (0.55-1.30) H 9.6 MG/DL (0.55-1.30) H Estimat Glomerular Filtration Rate 6.9 mL/min (>60) 6.7 mL/min (>60) Glucose Level 168 MG/DL (74-106) H 143 MG/DL (74-106) H Calcium Level 6.9 MG/DL (8.5-10.1) L 6.6 MG/DL (8.5-10.1) L Total Bilirubin 0.2 MG/DL (0.2-1.0) Aspartate Amino Transf (AST/SGOT) 32 U/L (15-37) Alanine Aminotransferase (ALT/SGPT) 32 U/L (12-78) Alkaline Phosphatase 320 U/L (46-116) H Troponin I 0.033 ng/mL (0.000-0.056) 0.042 ng/mL (0.000-0.056) C-Reactive Protein, Quantitative 17.1 mg/dL (0.00-0.90) H Pro-B-Type Natriuretic Peptide > 42257 pg/mL (0-125) H Total Protein 8.1 G/DL (6.4-8.2) Albumin 2.8 G/DL (3.4-5.0) L Globulin 5.3 g/dL Albumin/Globulin Ratio 0.5 (1.0-2.7) L Lipase 30 U/L (73-393) L POC Whole Blood Glucose Pending 80 MG/DL (74-106) Triglycerides Level 77 MG/DL (30-150) Cholesterol Level 105 MG/DL (< 200) LDL Cholesterol 42 mg/dL (<100) HDL Cholesterol 42 MG/DL (40-60) Cholesterol/HDL Ratio 2.5 (3.3-4.4) L Thyroid Stimulating Hormone (TSH) 19.600 uiU/mL (0.358-3.740) Digoxin Level < 0.2 NG/ML (0.5-2.0) L Test 10/03/19 09:27 10/03/19 09:41 POC Whole Blood Glucose 59 MG/DL (74-106) L Pending Microbiology Date/Time Source Procedure Growth Status 10/02/19 19:05 Nasopharynx SARS-CoV-2 RdRp Gene Assay - Final Complete 10/02/19 20:00 Rectum Received Eugene Cameron MD Oct 03, 2019 10:04
[2019-10-03] MEDS ORDERED: LORazepam Inj 2mg/ml 1ml IV PRN ×2 (10:30→14:00)
[2019-10-03] MEDS ORDERED: propofoL 1,000mg/100ml 100 ML IV SCH (10:45)
[2019-10-03] MEDS ORDERED: Omnipaque-300 100ml vial INJ ONE (10:45)
--- NOTE | 2019-10-03 11:00 | NUR ---
NURSE NOTES: Pt s/p code blue x2. Right Femoral TLC inserted and started Levophed @ 8mcg/min and Propofol @ 5mcg/kg/min. Will titrate to maintain SBP >90 and RASS -2.
--- NOTE | 2019-10-03 11:36 | Diagnostic Imaging Report ---
Indication: Reason For Exam: SOB Technique: Single AP view of the chest. Comparison: Chest radiograph dated 05/10/2019 Findings: Cardiomediastinal silhouette demonstrates persistent cardiomegaly. Mild pulmonary vascular congestion. There is a new large right pleural effusion with associated airspace consolidation. No pneumothorax. There is streaky left basilar airspace opacities. No acute osseous abnormality. Interval median sternotomy with preserved alignment of wires. Interval placement of right-sided tunneled dialysis catheter, with tip at expected location of the cavoatrial junction. IMPRESSION: 1. Interval development of large right pleural effusion with airspace consolidation which may represent compressive atelectasis but superimposed pneumonia should be excluded clinically. 2. Pulmonary vascular congestion. 3. Interval placement of right-sided tunnel catheter. 4. Interval median sternotomy.
--- NOTE | 2019-10-03 12:30 | NUR ---
NURSE NOTES: Dr Tidwell at bedside assessing pt. Updated him on pt's current condition. Will swab discharge from penis for culture.
--- NOTE | 2019-10-03 13:11 | NUR ---
CASE MANAGEMENT: INITIAL REVIEW 10/02/2019 69 YO M STEPHANIE FROM HOME CC: SOB. PMHx: HTN. ASTHMA. COPD. DM. HD MWF. SI:MISSED HD. ESRD. FLUID OVERLOAD HR 140 RR 22 B/P 132/80 SATS 92% ON RA LABS: WBC 11.9 CL 97 BUN 55 CR 9.2 GLU 168 CA 6.9 ALP 329 CRP 17.1 BNP > 35K LIPASE 30 IS: CARDIZEM IV X1 NITRO SL X1 CXR IMPRESSION: 1. Interval development of large right pleural effusion with airspace consolidation which may represent compressive atelectasis but superimposed pneumonia should be excluded clinically. 2. Pulmonary vascular congestion 3. Interval placement of right-sided tunnel catheter. 4. Interval median sternotomy. PATIENT ADMITTED TO ICU 10/02/2019 @ 1941 DCP: HOME CONCURRENT REVIEW FOR 10/03/2019 SI:MISSED HD. ESRD. FLUID OVERLOAD. VS: T 99 HR 89 RR 20 B/P 103/60 SATS 99% ON 3L/NC LABS: BUN 59 CR 9.6 GLU 143 CA 6.6 TSH 19.6 ABGs PH 7.269 PCO2 51.9 PO2 166.1 BE -3.9 IS: COREG PO Q12H QVAR INH BID LIPITOR PO QHS LEVEMIR SUBQ QHS LASIX PO QD COZAAR PO QD ASA PO QD INSULIN ASPART SUBQ AC/HS PROPOFOL PER PARAMETERS LEVOPHED PER PARAMETERS CARDIZEM PO Q6H RENVELA PO TID TRANSFER TO ICU DCP: TBD PLAN OF CARE: KUB INTUBATED ON VENT CT CHEST
--- NOTE | 2019-10-03 13:15 | NUR ---
NURSE NOTES: Alex, wound care nurse, at bedside assessing pts wounds. All wounds were applied betadine and covered with optifoam and wrapped with Kurlix. Wound on penis cultured, as ordered.
--- NOTE | 2019-10-03 13:15 | History and Physical Report ---
DATE OF ADMISSION: 10/02/2019 HISTORY AND PHYSICAL/ICU CONSULTATION HISTORY OF PRESENT ILLNESS: This is a 69-year-old male with a history of ESRD on dialysis. He previously also had a cardiac valve replaced. He was admitted recently to outside hospital. He missed dialysis this week and came to the hospital. The patient has a previous history of right lower extremity amputation as well as previous vascular bypass. He is normally a patient of Dr. Smith Tidwell. The patient was seen and admitted to the telemetry unit. This morning, he had cardiac arrhythmias and suffered a cardiopulmonary arrest. He was intubated by the ER physician and currently a central line has been placed. He is on Levophed and fentanyl. HOME MEDICATIONS: Include Cardizem, Coreg, Lasix, Isordil, Levemir, Synthroid, and Cozaar. REVIEW OF SYSTEMS: Not obtainable. PHYSICAL EXAMINATION: GENERAL: Reveals an obese 69-year-old male. VITAL SIGNS: Blood pressure is 140/70, heart rate 82, respirations 20. He is afebrile. HEENT: Unremarkable. Endotracheal tube is in place. CHEST: Diminished breath sounds bilaterally. There is a right subclavian PermCath noted. CARDIOVASCULAR: Heart sounds are normal. ABDOMEN: Soft, nondistended. EXTREMITIES: He has right BKA. There is no appreciable edema. LABORATORY DATA: Hemoglobin of 10, white count 9.8, platelet count 202,000. Creatinine 9.6, potassium 3.5. Toxicology is negative. Coags are negative. 1.7. X-ray chest per ER physician report showed evidence of pulmonary edema. IMPRESSION: 1. ESRD, on dialysis. 2. Pulmonary edema. 3. Cardiac arrhythmias with A-flutter/AFib. 4. Status post cardiopulmonary arrest. 5. Previous right BKA. DISCUSSION: Admit to the hospital. We will start propofol, start fentanyl. Nephrology and Cardiology on board. Prognosis is grim. We will continue medications. We will follow carefully. Ming Wong M.D. DR: AUBREE JOB#: [id number] CC:
--- NOTE | 2019-10-03 13:16 | NUR ---
NURSE NOTES: Pt remains hemodynamically unstable and was unable to be turned to assess sacral wound at this time.
--- NOTE | 2019-10-03 13:29 | NUR ---
INSURANCE ED SUMMARY, H&P, AND REVIEW FAXED TO [facility]: ERICA P:[phone] F:[phone] FAX CLINICALS Addendum: 10/03/19 at 1656 by LUIS ARMENDARIZ LVN LVN [facility], [place] #[id number]
[2019-10-03] MEDS ORDERED: Nitroglycerin Subl 0.4mg tab SL PRN (13:50)
--- NOTE | 2019-10-03 13:50 | NUR ---
NURSE NOTES: Dialysis nurseJordan, at bedside connecting pt to dialysis machine via Lt UA AV fistula. Pt currently on Levophed @ 16mcg/min and Propofol @ 25mcg/kg/min.
[2019-10-03] MEDS ORDERED: Miralax 17gm pkt ORAL PRN (14:00)
[2019-10-03] MEDS ORDERED: Lomotil 2.5mg tab ORAL PRN (14:00)
--- NOTE | 2019-10-03 14:00 | NUR ---
NURSE NOTES: OGT placed. Awaiting KUB after dialysis is complete.
[2019-10-03] MEDS ORDERED: Heparin 25,000u/D5W 500ml 500 ML IV SCH (14:15)
[2019-10-03] MEDS: propofoL 1,000mg/100ml 100 ML IV SCH ×2 (14:32→22:53)
--- NOTE | 2019-10-03 14:33 | Diagnostic Imaging Report ---
Indication: Post intubation Technique: One view of the chest Comparison: 10/02/2019 Findings: Interim endotracheal intubation, endotracheal tube tip in good position projecting approximately 7 cm above the ravinder. Interim placement of an orogastric tube, tip of which projects beyond the edge of the image, position therefore indeterminate. Right jugular dialysis catheter is again demonstrated. Large right pleural effusion, mild interstitial edema bilaterally persist. Impression: Satisfactory endotracheal intubation. Patient's nurse notified at the time of interpretation Status post nasogastric intubation, tip below the diaphragm but otherwise position indeterminate. Other stable findings as described
--- NOTE | 2019-10-03 14:49 | Consultation ---
History of Present Illness General Date patient seen: Oct 03, 2019 Chief Complaint: Dyspnea/Respdistress Present Illness HPI This is a 69-year-old male with multi-medical comorbidities including end-stage renal disease on hemodialysis who recently missed dialysis and developed respiratory insufficiency came to [facility] for evaluation at which time was admitted further care management unfortunately had hemodynamic instability a code was called ACLS initiated patient was intubated and placed on support currently on Levophed. Noted to have abnormal labs imaging as below abnormal wound on penis with implant surgery called to evaluate and assist with care. Patient seen, patient evaluated, chart reviewed. Patient with prior right lower extremity what appears to be bypass and amputation. Allergies: Coded Allergies: Dust (Verified Allergy, Unknown, 06/06/19) Medication History Scheduled Amlodipine Besylate* (Amlodipine Besylate*), 10 MG ORAL DAILY, (Reported) Amlodipine Besylate* (Amlodipine Besylate*), Unknown Dose ORAL DAILY, (Reported) Atorvastatin Calcium* (Atorvastatin Calcium*), 20 MG ORAL BEDTIME, (Reported) Beclomethasone Dipropionate 40MCG Oral Inh (Qvar 40*), 1 PUFF INH TWICE A DAY, ( Reported) Budesonide/Formoterol Fumarate (Symbicort 160-4.5 Mcg Inhaler), 1 PUFF IH BID, ( Reported) Carvedilol (Coreg), 6.25 MG ORAL EVERY 12 HOURS, (Reported) Dicloxacillin Sodium (Dicloxacillin Sodium), Unknown Dose ORAL EVERY 6 HOURS, ( Reported) Diltiazem Hcl (Diltiazem 24HR Er), 240 MG PO DAILY, (Reported) Diltiazem Hcl* (Cardizem*), Unknown Dose PO QID, (Reported) Ferric Citrate (Auryxia), 1 TAB PO TID, (Reported) Furosemide* (Lasix*), 80 MG ORAL DAILY, (Reported) Furosemide* (Lasix*), Unknown Dose ORAL DAILY, (Reported) Hydralazine Hcl* (Hydralazine Hcl*), 50 MG ORAL EVERY 8 HOURS, (Reported) Hydralazine Hcl* (Hydralazine Hcl*), Unknown Dose ORAL EVERY 6 HOURS, (Reported) Insulin Glargine (Lantus), 40 SUBQ BEDTIME, (Reported) Levothyroxine Sodium* (Levothyroxine Sodium*), 25 MCG ORAL DAILY, (Reported) Levothyroxine Sodium* (Levothyroxine Sodium*), Unknown Dose ORAL DAILY, ( Reported) Lipase/Protease/Amylase (Zenpep Dr 25,000 Unit Capsule), 1 EACH PO TID, ( Reported) Losartan Potassium (Losartan Potassium), 100 MG ORAL DAILY, (Reported) Sevelamer Carbonate* (Renvela*), 800 MG ORAL THREE TIMES A DAY, (Reported) Vitamin B Complex & Vit C No.3 (B Complex With Vitamin C), 1 TAB ORAL DAILY, ( Reported) Warfarin Sod* (Warfarin Sod*), 4 MG ORAL QHS, (Reported) Warfarin Sod* (Warfarin Sod*), 3 MG ORAL Mondays, (Reported) Warfarin Sod* (Warfarin Sod*), Unknown Dose ORAL DAILY, (Reported) Scheduled PRN Dicyclomine Hcl* (Dicyclomine Hcl*), 10 MG ORAL TID PRN for spasm, (Reported) Diphenoxylate Hcl/Atropine (Diphenoxylate-Atropine Tablet), 1 EACH PO BID PRN for Diarrhea, (Reported) Miscellaneous Medications Insulin Lispro (Humalog), 0 SUBQ, (Reported) Vit B Cmplx 3/Fa/Vit C/Biotin (Diana-Aubrey Rx Tablet), 1 EACH PO, (Reported) Patient History Limited by: medical condition History Provided By: Medical Record, PMD Healthcare decision maker Resuscitation status Advanced Directive on File Past Medical/Surgical History Past Medical/Surgical History: (1) CHF (congestive heart failure) (2) Hypoxia (3) Injury of left upper extremity (4) bleeding AV shunt (5) ARF (acute renal failure) (6) Cardiopulmonary arrest (7) Bilateral pleural effusion (8) Diabetes (9) Hypertension, benign (10) Anemia in chronic kidney disease (11) Dialysis AV fistula malfunction (12) Abnormal laboratory test result (13) Respiratory distress (14) Hyperglycemia (15) Asthma (16) CHF exacerbation (17) Atrial flutter (18) End-stage renal disease (19) SVT (supraventricular tachycardia) Review of Systems ROS Narrative unable to obtain given medical condition Physical Exam General Appearance: moderate distress Lines, tubes and drains: endotracheal tube HEENT: anicteric, mucous membranes moist Neck: supple, normal inspection Respiratory/Chest: decreased breath sounds, on vent Cardiovascular/Chest: regular rhythm Abdomen: soft, no organomegaly, no mass Genitourinary/Rectal: [place], other Extremities: inflammation, slow capillary refill, trace edema, other - right amp Skin Exam: warm/dry, other - penile implant / wound Neurologic: unresponsiveness Last 24 Hour Vital Signs Date Time Temp Pulse Resp B/P (MAP) Pulse Ox O2 Delivery O2 Flow Rate FiO2 10/03/19 14:34 109/63 10/03/19 14:32 16 103/61 Mechanical Ventilator 100 10/03/19 14:00 97.3 64 17 99/60 (73) 99 10/03/19 14:00 16 99/60 Mechanical Ventilator 100 10/03/19 13:55 64 16 97/61 (73) 99 10/03/19 13:45 65 19 96/62 (73) 98 10/03/19 13:43 65 17 97/64 (75) 98 10/03/19 13:30 65 17 95/59 (71) 98 10/03/19 13:17 65 16 100 10/03/19 13:15 65 18 94/59 (71) 98 10/03/19 13:00 65 15 94/60 (71) 99 10/03/19 13:00 16 94/59 Mechanical Ventilator 97 10/03/19 13:00 94/59 10/03/19 12:45 63 16 93/58 (70) 98 10/03/19 12:30 60 18 93/62 (72) 97 10/03/19 12:30 17 93/58 Mechanical Ventilator 96 10/03/19 12:15 57 18 83/56 (65) 95 10/03/19 12:00 54 15 85/58 (67) 97 10/03/19 12:00 100 10/03/19 12:00 Mechanical Ventilator 10/03/19 12:00 16 83/56 Mechanical Ventilator 94 10/03/19 12:00 83/56 10/03/19 11:45 55 13 75/60 (65) 98 10/03/19 11:45 16 75/60 Mechanical Ventilator 100 10/03/19 11:45 75/60 10/03/19 11:44 57 15 75/54 (61) 100 10/03/19 11:37 64 77/59 10/03/19 11:30 63 14 77/59 (65) 99 10/03/19 11:21 63 19 97 Mechanical Ventilator 100 67 19 10/03/19 11:15 63 17 84/57 (66) 89 10/03/19 11:11 63 18 76/47 (57) 85 10/03/19 11:10 64/42 10/03/19 11:05 16 135/112 Mechanical Ventilator 100 10/03/19 11:00 62 15 64/42 (49) 91 10/03/19 10:53 62 15 135/112 (120) 10/03/19 10:38 62 15 148/90 (109) 69 10/03/19 10:00 109 33 167/92 (117) 10/03/19 09:45 91 16 100 10/03/19 08:59 97 Nasal Cannula 2.0 28 10/03/19 08:00 97.9 62 20 77/42 (54) 95 10/03/19 08:00 Nasal Cannula 3.0 10/03/19 08:00 63 10/03/19 08:00 3.0 10/03/19 07:43 80 20 97 Nasal Cannula 2.0 28 78 20 95 10/03/19 06:00 97 90/50 10/03/19 04:00 Nasal Cannula 3.0 10/03/19 04:00 89 10/03/19 04:00 3.0 10/03/19 04:00 99.0 20 103/60 (74) 99 10/03/19 02:36 79 20 96 Nasal Cannula 2.0 28 76 20 95 10/03/19 02:35 78 20 95 Nasal Cannula 2.0 28 10/03/19 02:29 98 Nasal Cannula 2.0 28 10/03/19 02:08 125 146/75 10/03/19 00:00 3.0 10/03/19 00:00 97.4 115 20 141/75 (97) 99 10/03/19 00:00 Nasal Cannula 3.0 10/02/19 23:06 Nasal Cannula 3.0 10/02/19 22:28 141/75 10/02/19 22:28 130 141/75 10/02/19 22:26 130 141/75 10/02/19 20:30 98.8 104 19 132/88 100 Nasal Cannula 2.0 10/02/19 19:20 98.8 114 25 96/58 100 Nasal Cannula 2.0 10/02/19 18:24 136 115/71 10/02/19 18:24 115/71 10/02/19 18:00 142 24 Room Air 10/02/19 18:00 99.0 142 25 128/85 95 Room Air 10/02/19 17:38 140 22 132/80 (97) 92 Room Air Intake and Output 10/02/19 10/03/19 19:00 07:00 Intake Total 300 ml Balance 300 ml Intake Oral 300 ml # Voids 3 Laboratory Tests Test 10/02/19 18:00 10/02/19 22:33 10/03/19 03:40 10/03/19 06:26 White Blood Count 11.9 K/UL (4.8-10.8) H 9.8 K/UL (4.8-10.8) Red Blood Count 3.68 M/UL (4.70-6.10) L 3.33 M/UL (4.70-6.10) L Hemoglobin 11.4 G/DL (14.2-18.0) L 10.0 G/DL (14.2-18.0) L Hematocrit 36.4 % (42.0-52.0) L 33.3 % (42.0-52.0) L Mean Corpuscular Volume 99 FL (80-99) 100 FL (80-99) H Mean Corpuscular Hemoglobin 30.9 PG (27.0-31.0) 29.9 PG (27.0-31.0) Mean Corpuscular Hemoglobin Concent 31.3 G/DL (32.0-36.0) L 30.0 G/DL (32.0-36.0) L Red Cell Distribution Width 19.0 % (11.6-14.8) H 17.9 % (11.6-14.8) H Platelet Count 228 K/UL (150-450) 202 K/UL (150-450) Mean Platelet Volume 6.0 FL (6.5-10.1) L 6.1 FL (6.5-10.1) L Neutrophils (%) (Auto) 79.2 % (45.0-75.0) H 77.2 % (45.0-75.0) H Lymphocytes (%) (Auto) 7.3 % (20.0-45.0) L 9.8 % (20.0-45.0) L Monocytes (%) (Auto) 10.1 % (1.0-10.0) H 9.7 % (1.0-10.0) Eosinophils (%) (Auto) 2.2 % (0.0-3.0) 2.1 % (0.0-3.0) Basophils (%) (Auto) 1.3 % (0.0-2.0) 1.2 % (0.0-2.0) Prothrombin Time 17.3 SEC (9.30-11.50) H 17.6 SEC (9.30-11.50) H Prothromb Time International Ratio 1.6 (0.9-1.1) H 1.7 (0.9-1.1) H Activated Partial Thromboplast Time 36 SEC (23-33) H Sodium Level 140 MMOL/L (136-145) 142 MMOL/L (136-145) Potassium Level 3.7 MMOL/L (3.5-5.1) 3.5 MMOL/L (3.5-5.1) Chloride Level 97 MMOL/L (98-107) L 100 MMOL/L (98-107) Carbon Dioxide Level 26 MMOL/L (21-32) 26 MMOL/L (21-32) Anion Gap 17 mmol/L (5-15) H 16 mmol/L (5-15) H Blood Urea Nitrogen 55 mg/dL (7-18) H 59 mg/dL (7-18) H Creatinine 9.2 MG/DL (0.55-1.30) H 9.6 MG/DL (0.55-1.30) H Estimat Glomerular Filtration Rate 6.9 mL/min (>60) 6.7 mL/min (>60) Glucose Level 168 MG/DL (74-106) H 143 MG/DL (74-106) H Calcium Level 6.9 MG/DL (8.5-10.1) L 6.6 MG/DL (8.5-10.1) L Total Bilirubin 0.2 MG/DL (0.2-1.0) Aspartate Amino Transf (AST/SGOT) 32 U/L (15-37) Alanine Aminotransferase (ALT/SGPT) 32 U/L (12-78) Alkaline Phosphatase 320 U/L (46-116) H Troponin I 0.033 ng/mL (0.000-0.056) 0.042 ng/mL (0.000-0.056) C-Reactive Protein, Quantitative 17.1 mg/dL (0.00-0.90) H Pro-B-Type Natriuretic Peptide > 59446 pg/mL (0-125) H Total Protein 8.1 G/DL (6.4-8.2) Albumin 2.8 G/DL (3.4-5.0) L Globulin 5.3 g/dL Albumin/Globulin Ratio 0.5 (1.0-2.7) L Lipase 30 U/L (73-393) L POC Whole Blood Glucose Pending 80 MG/DL (74-106) Triglycerides Level 77 MG/DL (30-150) Cholesterol Level 105 MG/DL (< 200) LDL Cholesterol 42 mg/dL (<100) HDL Cholesterol 42 MG/DL (40-60) Cholesterol/HDL Ratio 2.5 (3.3-4.4) L Thyroid Stimulating Hormone (TSH) 19.600 uiU/mL (0.358-3.740) Digoxin Level < 0.2 NG/ML (0.5-2.0) L Test 10/03/19 09:27 10/03/19 09:41 10/03/19 11:19 POC Whole Blood Glucose 59 MG/DL (74-106) L Pending Arterial Blood pH 7.269 (7.350-7.450) Arterial Blood Partial Pressure CO2 51.9 mmHg (35.0-45.0) H Arterial Blood Partial Pressure O2 166.1 mmHg (75.0-100.0) H Arterial Blood HCO3 23.2 mmol/L (22.0-26.0) Arterial Blood Oxygen Saturation 98.5 % (95-100) Arterial Blood Base Excess -3.9 (-2-2) L Doe Test Positive Microbiology Date/Time Source Procedure Growth Status 10/02/19 19:05 Nasopharynx SARS-CoV-2 RdRp Gene Assay - Final Complete 10/02/19 20:00 Rectum Received Height (Feet): 5 Height (Inches): 6.00 Weight (Pounds): 198 Medications Current Medications Medications (Trade) Dose Ordered Sig/Monica Route PRN Reason Start Time Stop Time Status Last Admin Dose Admin Acetaminophen (Tylenol) 650 mg Q4H PRN ORAL Mild Pain (Pain Scale 1-3) 10/03/19 14:00 11/01/19 13:59 Acetaminophen (Tylenol) 650 mg Q4H PRN ORAL Temp >100.5 10/03/19 14:00 11/01/19 13:59 Aspirin (ASA) 81 mg DAILY ORAL 10/04/19 09:00 11/17/19 08:59 Atorvastatin Calcium (Lipitor) 20 mg BEDTIME ORAL 10/03/19 21:00 12/31/19 20:59 Beclomethasone Dipropionate (Qvar 40 Inhaler) 1 puff BIDRT INH 10/03/19 22:00 11/02/19 21:59 Carvedilol (Coreg) 37.5 mg EVERY 12 HOURS ORAL 10/03/19 21:00 11/01/19 20:59 Chlorhexidine Gluconate (Dina-Hex 2%) 1 applic DAILY@2000 TOPIC 10/03/19 20:00 01/01/20 19:59 Dextrose (Dextrose 50%) 25 ml Q30M PRN IV Hypoglycemia 10/03/19 14:15 12/31/19 20:14 Dextrose (Dextrose 50%) 50 ml Q30M PRN IV Hypoglycemia 10/03/19 14:15 12/31/19 20:14 Diltiazem HCl (Cardizem Tab) 90 mg Q6HR ORAL 10/03/19 18:00 11/01/19 20:14 Diphenhydramine HCl (Benadryl) 25 mg Q6H PRN ORAL Itching/Pruritis 10/03/19 14:15 11/01/19 20:14 Diphenoxylate HCl/ Atropine (Lomotil) 2.5 mg Q4H PRN ORAL Diarrhea 10/03/19 14:00 11/01/19 13:59 Furosemide (Lasix) 80 mg DAILY ORAL 10/04/19 09:00 11/02/19 08:59 Heparin Sodium (Porcine) (Heparin Sod 1000 units/ml 10ml) 500 unit ONCE PRN IV dialysis use 10/03/19 13:45 10/03/19 23:59 Heparin Sodium/ Dextrose 500 ml @ 32.332 mls/ hr ADJUST PER PROTOCOL IV 10/03/19 14:15 11/02/19 14:14 10/03/19 14:26 Hydromorphone HCl (Dilaudid) 2 mg Q4H PRN IVP For Pain (4-10) 10/03/19 14:00 10/10/19 01:59 Insulin Aspart (NovoLOG) BEFORE MEALS AND HS SUBQ 10/03/19 16:30 12/31/19 20:59 Insulin Detemir (Levemir) 40 units BEDTIME SUBQ 10/03/19 21:00 12/31/19 20:59 Ipratropium [place] (Atrovent) 0.5 mcg Q4HRT HHN 10/03/19 15:00 10/07/19 22:59 Isosorbide Dinitrate (Isordil) 10 mg THREE TIMES A DAY ORAL 10/03/19 18:00 11/01/19 20:14 Levothyroxine Sodium (Synthroid) 75 mcg ACBREAKFAST ORAL 10/04/19 06:30 11/03/19 06:29 Lorazepam (Ativan 2mg/ml 1ml) 1 mg Q3H PRN IV For Anxiety 10/03/19 14:00 10/10/19 13:59 Losartan Potassium (Cozaar) 100 mg DAILY ORAL 10/04/19 09:00 11/02/19 08:59 Nitroglycerin (Ntg) 0.4 mg Q5M PRN SL Prn Chest Pain 10/03/19 13:50 11/01/19 20:14 Norepinephrine Bitartrate 8 mg/ Dextrose 250 ml @ 0 mls/hr Q24H IV 10/03/19 14:00 11/02/19 13:59 10/03/19 14:34 Ondansetron HCl (Zofran) 4 mg Q6H PRN IVP Nausea & Vomiting 10/03/19 14:00 11/01/19 13:59 Polyethylene Glycol (Miralax) 17 gm DAILYPRN PRN ORAL Constipation 10/03/19 14:00 11/01/19 13:59 Propofol 100 ml @ 0 mls/hr Q12H IV 10/03/19 14:00 10/05/19 13:59 10/03/19 14:32 Sevelamer Carbonate (Renvela) 800 mg THREE TIMES A DAY ORAL 10/03/19 18:00 01/01/20 08:59 Sodium Chloride 1,000 ml @ 500 mls/hr Q2H PRN IVLG sbp<90 during hd 10/03/19 13:45 10/03/19 23:59 Assessment/Plan Problem List: (1) Cardiopulmonary arrest Assessment & Plan: in ICU on support weaning labs noted cont current care Assessment of pt's skin limited as pt is stable at present to be turned in bed. Generalized edemae noted. Shaft of penis is swollen,erythematous and oozing small amt purulent exudate from meatus. At head of Penis is an irregular shaped wound with 100% slough at base of wound(L)3cm x (W)2.5cm. Edges are erythematous with surrounding erythema shaft. Laterally, but in close proximity is small pustule(L)0.5cm x (W)0.4cm.Along foreskin is erythematous and swollen. 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 No surrounding erythema or evidence of further skin breakdown noted. L Lower ext noted to have very snugged sharee wrap which was removed. Xerosis skin with Haemosiderin deposits noted to LLE. LLE washed and moisturized to better assess wounds. Two areas of dry pink epithelial noted to dorsal and lateral L tibia. Linear Dry eschar noted to posterior L Knee (L)1.2cm x (W)9.5cm. No surrounding erythema or induration noted. Full thickness wound L Hallux(L)3cm x (W)2.5cm.Base of wound is 100% yellow slough. Margins are erythematous. Periwound is dark and indurated. Wound is malodorous. No exudate noted. L 5th TMA noted. At distal /lateral L foot is a Full Thickness wound(L)2cm x (W) 2.5cm. Base of wound is 80% mixed slough and eschar,20% carol. Edges are macerated. Small amt seropurulent exudate noted. Wound is malodorous. At Plantar aspect of L foot at 3rd and 4th metatarsal heads is a full thickness wound that is malodorous. (L)1.5cm x (W)1cm. Base of wound is mixed soft necrosis and slough. Small amt seropurulent exudate noted. Periwound skin is callused but no erythema noted. DTPI noted to L heel (L)3.1cm x (W)2cm. Base of injury is purpuric and fluctuant. Surrounding areas of L heel is boggy without erythema. Hyperpigmentation from previous wound noted to medial L malleolus. Will plan to assess Back and sacral area when pt is stable to be turned. Tx.Plan:Cleanse wound Penis with Saline. Apply Nickel thick layer of Santyl with saline moistened 2x2 gauze Daily and prn. Apply Bactroban to wounds on Penis TID as directed by . Cleanse Wounds L Foot with Saline. Apply Nickel Thick layer Santyl. Apply Saline moistened gauze to each wound. Cover with ABD pad. Wrap with Kerlix Daily and prn. Apply Cavilon Skin Barrier to posterior L Knee Daily and prn. Moisturize dry skin LLE daily with each drsg changes. Apply Cavilon Skin Barrier to L Heel daily. Apply Cavilon Skin Barrier to base of R BKA Stump. Cover with ABD Pad. Wrap with Kerlix every 3 days and prn. Apply Moisture Barrier Paste to sacrum. Cover with Optifoam drsg. Change every 3 days and prn. Reposition at least every 2hours or as tolerated. Off-load L Heel with Pillow. Off-load L BKA with Pillow. APM/NATHALY Mattress overlay. ICD Codes: I46.9 - Cardiac arrest, cause unspecified SNOMED: 346676821 (2) Bilateral pleural effusion Assessment & Plan: Interim endotracheal intubation, endotracheal tube tip in good position projecting approximately 7 cm above the ravinder. Interim placement of an orogastric tube, tip of which projects beyond the edge of the image, position therefore indeterminate. Right jugular dialysis catheter is again demonstrated. Large right pleural effusion, mild interstitial edema bilaterally persist. Impression: Satisfactory endotracheal intubation. Patient's nurse notified at the time of interpretation Status post nasogastric intubation, tip below the diaphragm but otherwise position indeterminate. ICD Codes: J90 - Pleural effusion, not elsewhere classified SNOMED: 899992125, 52445035 (3) CHF (congestive heart failure) ICD Codes: I50.9 - Heart failure, unspecified SNOMED: 89879955 (4) Hypoxia ICD Codes: R09.02 - Hypoxemia SNOMED: 769253915 (5) ARF (acute renal failure) ICD Codes: N17.9 - Acute kidney failure, unspecified SNOMED: 82931755 (6) Injury of left upper extremity ICD Codes: S49.92XA - Unspecified injury of left shoulder and upper arm, initial encounter SNOMED: 673015299 (7) bleeding AV shunt (8) Diabetes ICD Codes: E11.9 - Type 2 diabetes mellitus without complications SNOMED: 69813613 (9) Hypertension, benign ICD Codes: I10 - Essential (primary) hypertension SNOMED: 10016423 (10) Anemia in chronic kidney disease ICD Codes: N18.9 - Chronic kidney disease, unspecified; D63.1 - Anemia in chronic kidney disease SNOMED: 230196246, 876857413 (11) Dialysis AV fistula malfunction ICD Codes: T82.590A - Other mechanical complication of surgically created arteriovenous fistula, initial encounter SNOMED: 010951770 (12) Abnormal laboratory test result ICD Codes: R89.9 - Unspecified abnormal finding in specimens from other organs , systems and tissues SNOMED: 618310582 (13) Respiratory distress ICD Codes: R06.03 - Acute respiratory distress SNOMED: 256979992 (14) Hyperglycemia ICD Codes: R73.9 - Hyperglycemia, unspecified SNOMED: 27935276 (15) Asthma ICD Codes: J45.909 - Unspecified asthma, uncomplicated SNOMED: 441435692 (16) CHF exacerbation ICD Codes: I50.9 - Heart failure, unspecified SNOMED: 03776495 (17) Atrial flutter ICD Codes: I48.92 - Unspecified atrial flutter SNOMED: 5672756 (18) End-stage renal disease ICD Codes: N18.6 - End stage renal disease SNOMED: 23913167 (19) SVT (supraventricular tachycardia) ICD Codes: I47.1 - Supraventricular tachycardia SNOMED: 5537677 Bolivar Barrios Oct 03, 2019 14:49
--- NOTE | 2019-10-03 15:20 | NUR ---
NURSE NOTES: Pt currently getting dialysis and tolerating well.
--- NOTE | 2019-10-03 15:32 | NUR ---
NURSE NOTES:WOUND CARE NOTES: Assessment of pt's skin limited as pt is stable at present to be turned in bed. Generalized edemae noted. Shaft of penis is swollen,erythematous and oozing small amt purulent exudate from meatus. At head of Penis is an irregular shaped wound with 100% slough at base of wound(L)3cm x (W)2.5cm. Edges are erythematous with surrounding erythema shaft. Laterally, but in close proximity is small pustule(L)0.5cm x (W)0.4cm.Along foreskin is erythematous and swollen. 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 No surrounding erythema or evidence of further skin breakdown noted. L Lower ext noted to have very snugged sharee wrap which was removed. Xerosis skin with Haemosiderin deposits noted to LLE. LLE washed and moisturized to better assess wounds. Two areas of dry pink epithelial noted to dorsal and lateral L tibia. Linear Dry eschar noted to posterior L Knee (L)1.2cm x (W)9.5cm. No surrounding erythema or induration noted. Full thickness wound L Hallux(L)3cm x (W)2.5cm.Base of wound is 100% yellow slough. Margins are erythematous. Periwound is dark and indurated. Wound is malodorous. No exudate noted. L 5th TMA noted. At distal /lateral L foot is a Full Thickness wound(L)2cm x (W)2.5cm. Base of wound is 80% mixed slough and eschar,20% carol. Edges are macerated. Small amt seropurulent exudate noted. Wound is malodorous. At Plantar aspect of L foot at 3rd and 4th metatarsal heads is a full thickness wound that is malodorous. (L)1.5cm x (W)1cm. Base of wound is mixed soft necrosis and slough. Small amt seropurulent exudate noted. Periwound skin is callused but no erythema noted. DTPI noted to L heel (L)3.1cm x (W)2cm. Base of injury is purpuric and fluctuant. Surrounding areas of L heel is boggy without erythema. Hyperpigmentation from previous wound noted to medial L malleolus. Will plan to assess Back and sacral area when pt is stable to be turned. Tx.Plan:Cleanse wound Penis with Saline. Apply Nickel thick layer of Santyl with saline moistened 2x2 gauze Daily and prn. Apply Bactroban to wounds on Penis TID as directed by . Cleanse Wounds L Foot with Saline. Apply Nickel Thick layer Santyl. Apply Saline moistened gauze to each wound. Cover with ABD pad. Wrap with Kerlix Daily and prn. Apply Cavilon Skin Barrier to posterior L Knee Daily and prn. Moisturize dry skin LLE daily with each drsg changes. Apply Cavilon Skin Barrier to L Heel daily. Apply Cavilon Skin Barrier to base of R BKA Stump. Cover with ABD Pad. Wrap with Kerlix every 3 days and prn. Apply Moisture Barrier Paste to sacrum. Cover with Optifoam drsg. Change every 3 days and prn. Reposition at least every 2hours or as tolerated. Off-load L Heel with Pillow. Off-load L BKA with Pillow. APM/NATHALY Mattress overlay.
--- NOTE | 2019-10-03 16:25 | NUR ---
NURSE NOTES: Informed Dr Kiser (covering for Dr Wong) of ABG results. FiO2 lowered to 50%.
--- NOTE | 2019-10-03 16:45 | Consultation ---
DATE OF CONSULTATION: 10/03/2019 CARDIOLOGY CONSULTATION CONSULTING PHYSICIAN: Eugene Cameron MD. REFERRING PHYSICIAN: Ming Wong MD. REASON FOR CONSULTATION: Management of atrial flutter in a patient status post cardiopulmonary arrest. HISTORY OF PRESENT ILLNESS: The patient is a very unfortunate 69-year-old gentleman who was initially admitted to step-down unit [facility] following his presentation with shortness of breath in the emergency department. Apparently, the patient who has history of end-stage renal disease, coronary artery disease status post coronary artery bypass graft surgery recently at [facility], history of COPD, and diabetes mellitus, had missed hemodialysis, presented to this hospital with shortness of breath. Initial chest x-ray showed moderate-sized right pleural effusion with cardiomegaly and sternal wires with evidence of coronary artery graft placement, and bilateral pulmonary edema. The patient was admitted to [facility], however, due to hypoxemia had gone to bradycardia, asystole. The patient is status post CPR. Following this event, I was consulted by Dr. Wong to manage the patient in Cardiology consultation. At the time of arrival to this facility, the patient's 12-lead electrocardiogram was significant for atrial flutter with rapid ventricular response and heart rate of 134. His initial vital signs was blood pressure 132/80 mmHg and heart rate of 140. The patient was intubated and was transferred from step-down unit to the intensive care unit. This report is prepared by using the records including the records from [facility] and emergency room physician note. Initial troponin I level was 0.033, within normal limits. ProBNP, in view of hemodialysis, was about 35,000. PAST MEDICAL HISTORY: 1. Peripheral vascular disease, status post right BKA. 2. End-stage renal disease, on 3-days hemodialysis, managed by Dr. Smith Tidwell. 3. History of asthma. 4. History of diabetes mellitus. 5. History of normal LV systolic function according to echocardiography obtained in April of this year in this facility with LVEF of approximately 55% to 60%. 6. History of coronary artery disease, status post coronary artery bypass graft surgery at [facility]. 7. History of hypertension. PAST SURGICAL HISTORY: 1. Right PermCath. 2. Coronary artery bypass graft surgery. ALLERGIES: Dust. FAMILY HISTORY: No premature coronary artery disease in first-degree relatives according to the record. REVIEW OF SYSTEMS: Currently, the patient is intubated, so 12-system review cannot be obtained. MEDICATIONS: List of medications, warfarin one tablet daily, hydralazine 10 mg q.6 h., 250 mg q.6 h., furosemide 20 mg p.o. daily, levothyroxine 75 mcg daily, amlodipine 2.5 mg p.o. daily, diltiazem 30 mg four times a day, Renvela 800 mg three times a day, Diana-Aubrey one tablet daily, losartan 100 mg daily, insulin glargine 40 units subcutaneous at bedtime, beclomethasone inhaler, Lomotil one tablet twice daily p.r.n. diarrhea, dicyclomine 10 mg three times a day for abdominal spasm, ferric citrate 210 mg three times a day, hydralazine 50 mg q.8 h., atorvastatin 20 mg nightly, insulin lispro, and carvedilol 6.25 mg twice a day. PHYSICAL EXAMINATION: VITAL SIGNS: Blood pressure was 132/80, pulse of 140, respirations 22. O2 saturation 92% on room air. GENERAL: The patient is a very unfortunate 69-year-old gentleman who is intubated in the intensive care unit, awake, agitated following intubation. He appears to be chronically ill. HEENT: Atraumatic and normocephalic. Anicteric. Conjunctivae pallor is evident. NECK: JVP cannot be assessed in view of intubation. CARDIOVASCULAR: Normal S1, S2, currently irregular with no murmurs, gallops, or rubs. LUNGS: Diminished breath sounds in the right base, increased dullness on percussion. ABDOMEN: Soft, nontender, and nondistended. No hepatosplenomegaly. Positive bowel sounds. EXTREMITIES: Right BKA, otherwise left lower extremity with 1 to 2+ pitting edema. LABORATORY FINDINGS: WBC 11.9, hemoglobin 11.4, hematocrit 36.4%, platelet count 228,000. Sodium 140, potassium 3.7, chloride 97, bicarbonate 26, BUN 55, creatinine 9.2. Glucose is 168. Calcium is 6.9. Troponin I is 0.033. ProBNP 35,000 and above. Albumin 2.8. ASSESSMENT AND PLAN: 1. Alex/asystole cardiopulmonary arrest, possible diagnosis hypoxemia due to significant right pleural effusion. No arterial blood gas was done in the emergency department at the time of the code. The O2 saturation was reported to be 95%. 2D echocardiography was done earlier this morning and shows slightly decreased LV systolic function when compared with 2D echocardiography done in April 2019 with LVEF approximately 40% to 45%. This very well could be secondary to underlying atrial arrhythmia or uremia or coronary artery disease. The patient's other diagnosis such as pulmonary embolism also needs to be ruled out in view of RV enlargement and RV systolic dysfunction. RV systolic function is significantly reduced. RV systolic pressure approximately [address] angiography of the chest was ordered stat. The patient is empirically treated with heparin drip. Discussed with Dr. Wong, who agrees with the above management. input in regards with management of this sick patient. 2. Atrial flutter with rapid ventricular response, responded to Cardizem. Currently atrial flutter with controlled ventricular response with a heart rate in the range of 60 to 65. I would continue monitoring the patient's rhythm. 3. Hypertension, currently stage 2. 4. End-stage renal disease, missed dialysis. 5. Coronary artery disease, status post coronary artery bypass graft surgery at [facility]. We are waiting for the report of the number of the grafts. 6. Right pleural effusion, unilateral. I would recommend right ultrasound-guided thoracentesis for analysis and also for therapeutic measures. 7. Peripheral vascular disease, status post right BKA. 8. Malnutrition. 9. Diabetes mellitus. Total amount of time spent in evaluation of this very complicated patient with multiple problems post cardiac arrest in the intensive care unit of [facility], reviewing the data, reviewing the 2D echocardiography images from April and from today, was over 50 minutes. I would like to thank Dr. Wong for the courtesy of this consultation. Eugene Cameron M.D. DR: MARKEL JOB#: [id number] CC:
--- NOTE | 2019-10-03 16:45 | NUR ---
NURSE NOTES: Levophed decreased to 10mcg/min d/t BP being high: 150/91. Will continue to monitor.
[2019-10-03] MEDS: Renvela 800mg Pkt ORAL SCH (16:59)
--- NOTE | 2019-10-03 17:00 | NUR ---
NURSE NOTES: Blood sugar was 59 x2. Dextrose 50mL given. Pt is asymptomatic. Will continue to monitor.
--- NOTE | 2019-10-03 17:20 | NUR ---
NURSE NOTES: Repeat BS is 108. Pt is asymptomatic with no further interventions at this time.
--- NOTE | 2019-10-03 18:15 | NUR ---
NURSE NOTES: Pt finished dialysis at this time. 4 L out.
--- NOTE | 2019-10-03 18:32 | NUR ---
NURSE NOTES: [facility] dialysis called @ [phone] to schedule dialysis for tomorrow as ordered by Dr Tidwell. Pt fully cleaned and linens changed. Oral care done. Sacral wound assessed and picture uploaded.
--- NOTE | 2019-10-03 19:19 | NUR ---
NURSE HAND-OFF REPORT: Latest Vital Signs: Temperature 98.4 , Pulse 88 , B/P 128 /65 , Respiratory Rate 16 , O2 SAT 99 , Mechanical Ventilator, FiO2 50% . Vital Sign Comment: EKG Rhythm: Atrial Flutter Rhythm change?: N MD Notified?: - MD Response: Latest Roman Fall Score: 55 Fall Risk: High Risk Safety Measures: Call light Within Reach, Bed Alarm Zone 3, Side Rails Side Rails x2, Bed position Low and Locked. Fall Precautions: Yellow Socks Patient Fall Education Report given to SHANI Patel.
[2019-10-03] MEDS: Dyna-Hex 2% Top Sol 2oz TOPIC SCH (19:48)
--- NOTE | 2019-10-03 19:56 | NUR ---
NURSE NOTES: PATIENT SEDATED, RESPIRATION REGULAR ON ETT TO VENT AC 16/TV 500/FIO2 50%/PEEP 5, O2 SATURATION 100%, HR 60'S/MIN A- FLUTTER STATUS, OGT INTACT AND PATENT, NO N/V NOTED, KEPT HOB 30 DEGREES AND ASPIRATION PRECAUTION, ABDOMEN SOFT, NON TENDER, ANURIC STATUS, AV SHUNT TO LEFT UPPER ARM, KEPT LEFT ARM PRECAUTION, RIGHT BKA STATUS, PERMA CATH TO RIGHT CHEST, TLC TO RIGHT FEMORAL, INTACT AND PATENT, ONGOING PROPOFOL 25MCG/KG/MIN, LEVOPHED 4MCG/MIN AND HEPARIN 18 UNIT/KG/HR VIA TLC, KEPT RASS SCORE -2, 2 POINT SOFT RESTRAINTS STATUS, MADE LOWER BED POSITION, ON BED ALARM AND LOCKED, PLACED CALL LIGHT WITHIN REACH, WILL CONTINUE TO MONITOR.
[2019-10-03] MEDS ORDERED: Dyna-Hex 2% Top Sol 2oz TOPIC SCH (20:00)
--- NOTE | 2019-10-03 20:26 | Diagnostic Imaging Report ---
EXAM: XR Abdomen, 2 Views CLINICAL HISTORY: TUBE PLACEMENT TECHNIQUE: Frontal view of the abdomen/pelvis with upright view of the abdomen. COMPARISON: No relevant prior studies available. FINDINGS/IMPRESSION: The tip and sidehole of the enteric tube project within the stomach. Surgical clips in the leftward abdomen. CABG with right larger than left pleural effusions. Suspected vascular congestion.
[2019-10-03] MEDS: Atorvastatin 20mg tab ORAL SCH (20:52)
--- NOTE | 2019-10-03 20:58 | NUR ---
NURSE NOTES: BS 65MG/DL NOTED, GIVEN D50%W 25ML BY IVP PER PROTOCOLS AT 2045PM. BS 119MG/DL NOTED AT THIS TIME.
[2019-10-03] MEDS ORDERED: Levemir Flexpen SUBQ SCH (21:00)
[2019-10-03] MEDS ORDERED: Heparin 5000 units/ml inj SUBQ SCH (21:00)
[2019-10-03 21:02] LABS: ANION GAP 12 mmol/L (5-15); BLOOD UREA NITROGEN 34 mg/dL (7-18); CALCIUM 7.8 MG/DL (8.5-10.1); CARBON DIOXIDE 29 MMOL/L (21-32); CHLORIDE 97 MMOL/L (98-107); CREATININE 6.7 MG/DL (0.55-1.30); POTASSIUM 3.2 MMOL/L (3.5-5.1); SODIUM 138 MMOL/L (136-145)
[2019-10-03 21:08] LABS: ALANINE AMINOTRANSFERASE 38 U/L (12-78); ALBUMIN 2.4 G/DL (3.4-5.0); ALBUMIN/GLOBULIN RATIO 0.5 (1.0-2.7); ALKALINE PHOSPHATASE 338 U/L (46-116); ASPARTATE AMINO TRANSFERASE 42 U/L (15-37); BILIRUBIN,TOTAL 0.3 MG/DL (0.2-1.0)
[2019-10-03 21:13] LABS: BASOPHILS % (AUTO) 0.9 % (0.0-2.0); EOSINOPHILS % (AUTO) 2.9 % (0.0-3.0); HEMATOCRIT 37.2 % (42.0-52.0); HEMOGLOBIN 11.3 G/DL (14.2-18.0); LYMPHOCYTES % (AUTO) 8.2 % (20.0-45.0); MEAN CORPUSCULAR VOLUME 99 FL (80-99); MONOCYTES % (AUTO) 10.7 % (1.0-10.0); NEUTROPHILS % (AUTO) 77.4 % (45.0-75.0); PLATELET COUNT 188 K/UL (150-450); RED BLOOD COUNT 3.75 M/UL (4.70-6.10); WHITE BLOOD COUNT 13.2 K/UL (4.8-10.8)
--- NOTE | 2019-10-03 21:20 | NUR ---
NURSE NOTES: DUNCAN: CALLED BACK FROM PT'S , INFORMED PT'S SITUATION AND RELEASED OF PHI SIGNATURE THAT SHE WILL COME TOMORROW.
[2019-10-03] MEDS: Heparin 25,000u/D5W 500ml 500 ML IV SCH (21:34)
--- NOTE | 2019-10-03 21:48 | NUR ---
NURSE NOTES: CALLED DR. LINDSEY REGARDING CRITICAL TROPONIN LEVEL 0.060 THAT LEFT MESSAGE.
[2019-10-03] MEDS: Qvar 40mcg Inhaler 6.8 gm INH SCH (22:00)
--- NOTE | 2019-10-03 22:45 | Consultation ---
DATE OF CONSULTATION: 10/03/2019 CONSULTING PHYSICIAN: Smith Tidwell MD REFERRING PHYSICIAN: Ming Wong MD REASON FOR CONSULTATION: End-stage renal disease. HISTORY OF PRESENT ILLNESS: The patient is well known to me with a history of end-stage renal disease, long-standing insulin-dependent diabetes, congestive heart failure, asthma, paroxysmal atrial fibrillation, and morbid obesity. He missed the dialysis treatment on 10/01/2019 and he presented in the evening of 10/02/2019 to the emergency room with shortness of breath. He gained large amounts of fluids between dialysis sessions often more than 3 kilos. The patient has had multiple hospitalizations for CHF and atrial fibrillation. He was recently in [facility], had a CABG performed. He has had a right below-knee amputation and chronic wound in his left leg and had a prolonged course of antibiotics. There is a history of intermittent noncompliance with medications, dialysis treatment, and diet. HABITS: He is a nondrinker and nonsmoker. PAST SURGICAL HISTORY: Include removal of half of the pancreas, several toe amputations, right below-knee amputation, eye surgeries for retinal detachment, laser surgery to the eye, dialysis fistula left arm and revision, dialysis PermCath, and CABG. HOME MEDICATIONS: Include levothyroxine 50 mcg daily, diltiazem sustained release 240 mg daily, magnesium one tablet daily, carvedilol 12.5 mg twice a day, Ambien uncertain dose, aspirin 81 mg daily, atorvastatin 20 mg daily, furosemide 80 mg twice a day, hydralazine 50 mg three times a day, warfarin 2 mg on Mondays, on Sunday, Sunday, , Sunday, Sunday, and Sunday; looks like he is given 2 mg currently. Zenpep 25,000-79,000-105,000 one tablet three times a day with meals, 1 daily, handheld inhaled nebulizer as needed, Santyl to the wound, Auryxia 210 mg three tablets daily with meals, dicyclomine 10 mg three times a day as needed, Lomotil twice a day as needed, lispro sliding scale, Lantus 40 units at bedtime, Symbicort p.r.n., QVAR p.r.n. SYSTEM REVIEW: Major problems as above. He is intubated now. Course in the hospital, the patient did vomit last night. Apparently, he is in mild distress. Dialysis was ordered for early this morning as the dialysis nurse was not available. He was not in severe distress last night. However, he has now had cardiopulmonary arrest likely secondary to hypoxemia and bradycardia. PHYSICAL EXAMINATION: GENERAL: The patient is seen in the ICU. He is intubated and sedated. VITAL SIGNS: Blood pressure is 84/57, heart rate 63. Pulse ox is 89, malik to 97 on the ventilator. HEAD, EYES, EARS, NOSE, AND THROAT: Sclerae are nonicteric. He keeps his eyes closed during most of the exam. He is orally intubated. NECK: No adenopathy. LUNGS: Few crackles at the bases. HEART: Rhythm is atrial fibrillation. No murmur. ABDOMEN: Obese, soft, mildly distended. EXTREMITIES: Show 1 to 2+ edema. There is a right below-knee amputation. He has a large dressing on the left lower leg. AV fistula in the left arm. NEUROLOGIC: The patient is sedated. LABORATORY DATA: Review of pertinent labs show white count of 9.8, hemoglobin 10. Sodium 142, potassium 3.5, chloride 100, CO2 26, BUN 59, creatinine 9.6. Glucose 143. Troponin 0.042. IMPRESSION: 1. Congestive heart failure, acute on chronic with diastolic dysfunction, possibly systolic dysfunction. 2. End-stage renal disease, status post missed dialysis. 3. Atrial fibrillation/flutter. 4. Status post cardiopulmonary arrest. 5. History of asthma. 6. Insulin-dependent diabetes. 7. Obesity. PLAN: We will arrange serial dialysis for fluid overload. Being seen closely by Cardiology and Pulmonary. His condition is critical at this time. All orders are reviewed for end-stage renal disease. Smith Tidwell M.D. DR: MARIO JOB#: [id number] CC:
--- NOTE | 2019-10-03 23:50 | NUR ---
NURSE NOTES: PATIENT SEDATED, RASS SCORE -2, ON PROPOFOL 20MCG/KG/MIN, LEVOPHED 3MCG/MIN AND HEPARIN DRIP 16 UNIT/KG/HR VIA RIGHT FEMORAL TLC, HR 90'S/MIN A-FLUTTER, BBB, ETT TO VENT AC 16/TV 500/FIO2 40%/PEEP 5, O2 SATURATION 100% NOTED AT THIS TIME, WILL CONTINUE TO MONITOR.
[2019-10-04] VITALS (60 sets, daily range): BP systolic 97–134; BP diastolic 44–101
--- NOTE | 2019-10-04 00:55 | NUR ---
NURSE NOTES: PLACED P200 MATTRESS ORDERED.
[2019-10-04] MEDS: propofoL 1,000mg/100ml 100 ML IV SCH ×5 (02:00→23:31)
--- NOTE | 2019-10-04 02:45 | NUR ---
NURSE NOTES: PATIENT SEDATED, NO PAIN OR SOB NOTED AT THIS TIME, WILL CONTINUE PLAN OF CARE.
[2019-10-04] MEDS: Ipratropium 0.02% Inh Soln 2.5ml UD HHN SCH ×6 (03:23→22:45)
--- NOTE | 2019-10-04 04:02 | NUR ---
NURSE NOTES: LE:BS 64MG/DL NOTED AT 0342AM AND BS 67MG/DL NOTED AT 0348AM THAT GIVEN D50%W 25ML BY IVP PER PROTOCOLS. BS 146MG/DL NOTED AT THIS TIME.
--- NOTE | 2019-10-04 04:16 | NUR ---
NURSE NOTES: CALLED DR. OCHOA REGARDING HYPOGLYCEMIA THAT LEFT MESSAGE.
[2019-10-04 04:23] LABS: INR 1.5 (0.9-1.1)
[2019-10-04 04:33] LABS: ANION GAP 14 mmol/L (5-15); BLOOD UREA NITROGEN 35 mg/dL (7-18); CALCIUM 7.4 MG/DL (8.5-10.1); CARBON DIOXIDE 27 MMOL/L (21-32); CHLORIDE 96 MMOL/L (98-107); POTASSIUM 3.5 MMOL/L (3.5-5.1); SODIUM 137 MMOL/L (136-145)
[2019-10-04 04:35] LABS: BASOPHILS % (AUTO) 0.9 % (0.0-2.0); EOSINOPHILS % (AUTO) 2.2 % (0.0-3.0); HEMATOCRIT 35.2 % (42.0-52.0); HEMOGLOBIN 10.9 G/DL (14.2-18.0); MEAN CORPUSCULAR VOLUME 98 FL (80-99); MONOCYTES % (AUTO) 10.2 % (1.0-10.0); NEUTROPHILS % (AUTO) 77.6 % (45.0-75.0); PLATELET COUNT 188 K/UL (150-450); RED CELL DISTRIBUTION WIDTH 17.6 % (11.6-14.8); WHITE BLOOD COUNT 12.2 K/UL (4.8-10.8)
--- NOTE | 2019-10-04 04:40 | NUR ---
NURSE NOTES: LE: MORNING CARE AND ORAL CARE WAS DONE, NO BM STATUS, NO RESISTANCE TO CARE AT THIS TIME.
--- NOTE | 2019-10-04 05:43 | NUR ---
NURSE NOTES: NOTED PTT 80SEC, CONTINUED HEPARIN DRIP 16 UNIT/KG/HR PER PROTOCOLS, WILL CONTINUE PLAN OF CARE.
[2019-10-04] MEDS: dilTIAZem HCl 90mg tab ORAL SCH ×4 (05:51→23:36)
[2019-10-04] MEDS: NovoLOG Insulin Flexpen SUBQ SCH ×4 (06:05→20:50)
--- NOTE | 2019-10-04 06:41 | NUR ---
NURSE NOTES: PT SEDATED, RASS SCORE -2 ON PROPOFOL 20MCG/KG/MIN, NO PAIN OR SOB NOTED AT THIS TIME.
[2019-10-04] MEDS: Heparin 25,000u/D5W 500ml 500 ML IV SCH ×2 (06:59→21:30)
--- NOTE | 2019-10-04 07:28 | NUR ---
NURSE HAND-OFF REPORT: Latest Vital Signs: Temperature 98.6 , Pulse 92 , B/P 110 /44 , Respiratory Rate 19 , O2 SAT 100 , Mechanical Ventilator, O2 Flow Rate . Vital Sign Comment: ON ETT TO VENT FIO2 35%. EKG Rhythm: Atrial Flutter Rhythm change?: N MD Notified?: - MD Response: Latest Roman Fall Score: 70 Fall Risk: High Risk Safety Measures: Call light Within Reach, Bed Alarm Zone 1, Side Rails Side Rails x3, Bed position Low and Locked. Fall Precautions: y Yellow Socks Door Sign:y Patient Fall Education Report given to SHANI JOHNSON.
--- NOTE | 2019-10-04 08:00 | NUR ---
NURSE NOTES: Pt was assessed after receiving change of shift report from Jorge MCLEOD. Pt is currently sedated RASS score -2 light sedation while on Propofol drip infusing at 20mcg/kg/min. Pt is also maintained on Levophed drip, received pt on 3mcg/min which I just titrated up to 6mcg/min since BP dropped to 80/40. Pt is also on Heparin drip infusing at 16units/kg/hr, last PTT 80. Pt is orally intubated, ETT 7.5 at 22cm right lipline with vent settings AC16, VT500, Peep 5, FIO2 35%, currently at 100% O2Sat. Right upper lobe rhonchi is noted on auscultation. Pt was reported to have AFlutter, however, heart rhythm is now NSR per stud beef cattle farmer, HR 69. Temp 100F axillary, however cool to touch peripherally. OGT is present, NPO/no feeds at this time. OGT is clamped. Abdomen is large, round, soft, with hypoactive bowel sounds. Pt is anuric. Left UA AV shunt is present for HD treatment, bruit/thrill present. Right femoral TLC, patent/intact and connected to IV drips. Pt also has right chest permacath, dressing dry/intact. 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 Pt is on pressure release mattress. HOB at 30 degrees, bed locked, three side rails up. Pt also has bilateral soft wrist restraints despite being on Propofol due to pt reaching for ET tube, to prevent self-extubation. Will continue to monitor pt and follow with plan of care per MD orders and protocol.
--- NOTE | 2019-10-04 08:34 | NUR ---
RD ASSESSMENT & RECOMMENDATIONS SEE CARE ACTIVITY FOR COMPLETE ASSESSMENT DAILY ESTIMATED NEEDS: Needs based on Critical care, wound, ESRD, HD/ 66kg abw 25-30 kcals/kg 5350-4778 total kcals 1.25-2g g protein/kg 82-132 g total protein Fluids per MD NUTRITION DIAGNOSIS: (1) Increased kcal/pro needs R/T wound healing and renal dysfunction as evidenced by admitted w/ multiple wounds, including full thickness wounds @ L Hallux, distal /lateral L foot, plantar aspect of L foot at 3rd and 4th metatarsal heads, and DTPI @ L heel, pt w/ ESRD dx, on HD. (2) Swallowing difficulty R/T respiratory status as evidenced by s/p code blue x 2 (10/02), pt orally intubated, on pressor support, NPO at this time. CURRENT TF:NPO PO DIET RECOMMENDATIONS: CASTING INSPECTOR eval post extubation -> Renal, CCHO med ENTERAL NUTRITION RECOMMENDATIONS: Nepro @ 47ml/hr x 22 hrs to provide 1034ml, 1861kcal, 84g prot, 752ml free water * W/ hemodynamic stability, initiate OGT feeding of Nepro @ 17ml/hr x 6 hrs * Advance 10ml q 4-6 hrs as tolerated to goal rate * HOB over 30 degrees/ water flush per MD * Hold 1 hr before and after Synthroid med If pt remains on Propofol @ 10.777mL/hr (284.5kcal per 24 hrs), rec Nepro @ goal rate of 40ml/hr x 22 hrs (880ml, 1584kcal, 71g prot) -------> TF + propofol together will provide total of 1868.5 kcal per day -------- Without hemodynamic stability, rec trophic feeding of Nepro @ 5-10ml/hr ADDITIONAL RECOMMENDATIONS: * Monitor hemodynamic stability: on NE @ 3mcg * Wound healing: add Nephrovite x 1, ZnSO4 220mg QD x 10 days Vit C dosing per nephro Sergio BID w/ TF order * Rec low rate of D5 and hold insulin while NPO to prevent hypoglycemia * Monitor lytes- check phos and mag * Daily calibrated bedscale wt
[2019-10-04] MEDS: Losartan 50mg tab ORAL SCH (08:53)
[2019-10-04] MEDS: Aspirin Baby 81mg ORAL SCH (08:53)
[2019-10-04] MEDS: Renvela 800mg Pkt ORAL SCH ×3 (08:54→17:25)
[2019-10-04] MEDS: Carvedilol 12.5mg tab ORAL SCH ×2 (08:54→20:46)
[2019-10-04] MEDS: Furosemide 80mg tab ORAL SCH (08:55)
[2019-10-04] MEDS ORDERED: Heparin Sod 1000 units/ml 10ml IV PRN (09:00)
--- NOTE | 2019-10-04 09:00 | NUR ---
NURSE NOTES: Dialysis nurse, Jordan RN contacted nurse's station and confirmed scheduled hemodialysis treatment to be done at bedside today. Per dialysis nurse, all BP meds are to be held this morning including ASA. Lasix and Renvela and topical meds were administered. Pt was repositioned for comfort.
[2019-10-04] MEDS: Qvar 40mcg Inhaler 6.8 gm INH SCH ×2 (10:00→22:00)
--- NOTE | 2019-10-04 10:00 | NUR ---
RESPIRATORY NOTES Unable to administer RX Qvar. RX cannot be located at this time. Call to pharmacy has been made. SHANI vance.
--- NOTE | 2019-10-04 11:33 | NUR ---
NURSE NOTES: Pt is maintained on Levophed drip, currently infusing 6mcg/min to maintain SBP above 90, and MAP above 60. Pt remains sedated -2 light sedation per RASS score while on Propofol drip infusing at 20mcg/kg/min. Heparin drip continues at 16units/kg/hr, last PTT 80, next PTT to be drawn tomorrow at 0400. NSR on medical device sales consultant, HR 68. O2Sat remains 100% while on same vent settings from this AM.
[2019-10-04] MEDS ORDERED: NS 275ml ONE (12:39)
--- NOTE | 2019-10-04 14:30 | NUR ---
NURSE NOTES: Dialysis nurse is at bedside, started hemodialysis treatment, plan to remove 3L per HD nurse, as ordered by Dr. Tidwell. Pt remains on Levophed, currently at 6mcg/min to maintain SBP above 90, MAP above 60. Propofol is infusing at 20mcg/kg/min to maintain RASS score of -2 light sedation. Heparin drip remains at 16units/kg/hr. VS remain stable at this time.
--- NOTE | 2019-10-04 14:50 | Nephrology Progress Note ---
Assessment/Plan Problem List: (1) Ulcer of leg due to secondary diabetes (2) Cardiopulmonary arrest (3) CHF (congestive heart failure) (4) Bilateral pleural effusion (5) Diabetes (6) Anemia in chronic kidney disease (7) Atrial flutter (8) End-stage renal disease Plan seen on dialysis UF as tolerated in view of low bp,low glu and insulin adjuste, all icu orders reviewed Subjective ROS Limited/Unobtainable: Yes Objective Objective Last 24 Hour Vital Signs Date Time Temp Pulse Resp B/P (MAP) Pulse Ox O2 Delivery O2 Flow Rate FiO2 10/04/19 13:00 103/48 10/04/19 12:30 68 18 35 10/04/19 12:15 68 18 103/48 (66) 100 68 10/04/19 12:00 68 18 102/48 (66) 100 68 10/04/19 12:00 68 100/50 10/04/19 11:15 68 17 100 Mechanical Ventilator 35 69 17 35 10/04/19 11:00 68 19 103/50 (67) 100 10/04/19 10:00 68 20 103/51 (68) 100 10/04/19 09:30 70 19 104/50 (68) 100 10/04/19 09:00 69 20 35 10/04/19 09:00 68 19 105/49 (67) 100 10/04/19 08:54 92 84/44 10/04/19 08:53 84/44 10/04/19 08:30 69 20 101/47 (65) 100 10/04/19 08:00 69 10/04/19 08:00 100.0 69 19 99/48 (65) 100 10/04/19 08:00 Mechanical Ventilator Mechanical Ventilator 10/04/19 07:24 92 17 100 Mechanical Ventilator 35 89 16 35 10/04/19 07:24 100 Mechanical Ventilator 35 10/04/19 07:06 19 110/44 Mechanical Ventilator 35 10/04/19 07:00 23 110/44 Mechanical Ventilator 35 10/04/19 07:00 110/44 10/04/19 07:00 92 23 110/44 (66) 100 10/04/19 06:45 92 23 108/45 (66) 100 10/04/19 06:30 92 19 110/47 (68) 100 10/04/19 06:15 92 22 107/51 (69) 100 8/15/20 06:00 20 114/51 Mechanical Ventilator 35 10/04/19 06:00 114/51 10/04/19 06:00 92 20 114/51 (72) 100 10/04/19 05:51 92 104/45 10/04/19 05:45 92 18 104/45 (64) 100 10/04/19 05:30 92 20 112/46 (68) 100 10/04/19 05:15 92 18 114/46 (68) 100 10/04/19 05:11 92 18 35 10/04/19 05:10 35 10/04/19 05:00 92 14 105/50 (68) 100 10/04/19 05:00 14 105/50 Mechanical Ventilator 40 10/04/19 05:00 105/50 10/04/19 04:45 91 16 111/46 (67) 100 10/04/19 04:30 93 17 109/52 (71) 100 10/04/19 04:15 92 17 110/56 (74) 100 10/04/19 04:00 Mechanical Ventilator 10/04/19 04:00 98.6 92 15 112/54 (73) 100 10/04/19 04:00 15 112/54 Mechanical Ventilator 40 10/04/19 04:00 112/54 10/04/19 04:00 40 10/04/19 03:45 92 16 108/62 (77) 100 10/04/19 03:30 93 17 109/57 (74) 100 10/04/19 03:23 93 19 100 Mechanical Ventilator 40 93 16 10/04/19 03:15 93 18 101/58 (72) 100 10/04/19 03:00 93 19 108/60 (76) 100 10/04/19 03:00 19 108/60 Mechanical Ventilator 40 10/04/19 03:00 108/60 10/04/19 03:00 92 10/04/19 02:45 91 18 110/65 (80) 100 10/04/19 02:30 89 21 103/58 (73) 100 10/04/19 02:15 93 20 112/72 (85) 100 10/04/19 02:00 17 107/91 Mechanical Ventilator 40 10/04/19 02:00 107/91 10/04/19 02:00 92 17 107/91 (96) 100 10/04/19 01:45 94 17 113/70 (84) 100 10/04/19 01:30 92 18 114/60 (78) 100 10/04/19 01:25 92 19 40 10/04/19 01:15 95 17 113/66 (82) 100 10/04/19 01:00 18 114/62 Mechanical Ventilator 40 10/04/19 01:00 114/62 10/04/19 01:00 91 18 114/62 (79) 100 10/04/19 00:45 92 18 109/66 (80) 100 10/04/19 00:30 92 17 108/61 (77) 100 10/04/19 00:15 92 18 116/57 (76) 100 10/04/19 00:00 40 10/04/19 00:00 17 114/58 Mechanical Ventilator 40 10/04/19 00:00 114/58 10/04/19 00:00 Mechanical Ventilator 10/04/19 00:00 98.9 91 17 114/58 (76) 100 10/03/19 23:54 91 113/58 10/03/19 23:45 91 17 113/58 (76) 100 10/03/19 23:30 91 16 114/58 (76) 100 10/03/19 23:15 91 17 119/59 (79) 100 10/03/19 23:11 91 18 100 Mechanical Ventilator 45 91 16 10/03/19 23:06 91 10/03/19 23:00 91 16 118/62 (80) 100 10/03/19 23:00 16 118/62 Mechanical Ventilator 45 10/03/19 23:00 118/62 10/03/19 22:53 14 117/59 Mechanical Ventilator 45 10/03/19 22:45 90 16 117/59 (78) 100 10/03/19 22:30 90 14 122/60 (80) 100 10/03/19 22:15 90 16 127/61 (83) 100 10/03/19 22:00 90 12 118/58 (78) 100 10/03/19 22:00 12 118/58 Mechanical Ventilator 45 10/03/19 22:00 118/58 10/03/19 21:45 18 113/58 Mechanical Ventilator 45 10/03/19 21:45 90 18 113/58 (76) 100 10/03/19 21:30 20 131/65 Mechanical Ventilator 45 10/03/19 21:30 131/65 10/03/19 21:30 89 20 131/65 (87) 100 10/03/19 21:15 89 15 126/63 (84) 100 10/03/19 21:15 15 126/63 Mechanical Ventilator 45 10/03/19 21:10 45 10/03/19 21:05 88 16 45 10/03/19 21:00 89 14 129/61 (83) 100 10/03/19 21:00 14 129/61 Mechanical Ventilator 50 10/03/19 21:00 129/61 10/03/19 20:52 82 118/61 10/03/19 20:45 87 19 118/61 (80) 100 10/03/19 20:30 71 15 111/67 (82) 100 10/03/19 20:00 50 10/03/19 20:00 Mechanical Ventilator 10/03/19 20:00 98.4 67 15 107/62 (77) 100 10/03/19 20:00 15 107/62 Mechanical Ventilator 50 10/03/19 20:00 107/62 10/03/19 19:48 65 10/03/19 19:45 72 16 110/57 (74) 100 10/03/19 19:30 67 17 112/57 (75) 100 10/03/19 19:15 89 10 130/65 (86) 100 10/03/19 19:03 88 16 100 Mechanical Ventilator 50 89 16 10/03/19 19:03 99 Mechanical Ventilator 50 10/03/19 19:00 16 125/62 Mechanical Ventilator 50 10/03/19 19:00 125/62 10/03/19 19:00 89 17 128/65 (86) 100 10/03/19 18:45 89 15 125/62 (83) 100 10/03/19 18:30 98.4 88 16 135/66 (89) 100 10/03/19 18:15 89 15 126/77 (93) 100 10/03/19 18:00 16 141/66 Mechanical Ventilator 50 10/03/19 18:00 141/66 10/03/19 18:00 88 18 141/66 (91) 100 10/03/19 17:45 88 18 159/77 (104) 100 10/03/19 17:30 87 16 143/70 (94) 100 10/03/19 17:15 88 16 147/69 (95) 100 10/03/19 17:00 77 16 102/57 (72) 100 10/03/19 17:00 16 102/57 Mechanical Ventilator 50 10/03/19 17:00 102/57 10/03/19 16:57 68 16 108/59 (75) 100 10/03/19 16:45 88 17 150/91 (110) 100 10/03/19 16:31 66 17 50 10/03/19 16:30 50 10/03/19 16:30 77 19 138/71 (93) 100 10/03/19 16:15 73 18 136/71 (92) 100 10/03/19 16:00 100 10/03/19 16:00 16 127/77 Mechanical Ventilator 100 10/03/19 16:00 127/77 10/03/19 16:00 Mechanical Ventilator 10/03/19 16:00 63 10/03/19 16:00 97.3 66 17 127/77 (94) 100 10/03/19 15:45 66 15 126/69 (88) 100 10/03/19 15:30 66 17 122/69 (86) 100 10/03/19 15:15 65 19 120/69 (86) 100 10/03/19 15:14 65 16 100 10/03/19 15:00 65 16 115/65 (82) 100 10/03/19 15:00 16 115/65 Mechanical Ventilator 100 10/03/19 15:00 115/65 Intake and Output 10/03/19 10/04/19 19:00 07:00 Intake Total 391.963 ml 710.344 ml Output Total 4000 ml Balance -3608.037 ml 710.344 ml IV Total 391.963 ml 560.344 ml Other 150 ml Output Hemodialysis UF 4000 ml # Bowel Movements 2 Laboratory Tests 10/03/19 16:05: Arterial Blood pH 7.400, Arterial Blood Partial Pressure CO2 42.1, Arterial Blood Partial Pressure O2 330.7H, Arterial Blood HCO3 25.5, Arterial Blood Oxygen Saturation 99.3, Arterial Blood Base Excess 0.6, Doe Test Positive 10/03/19 17:45: POC Whole Blood Glucose 108H 10/03/19 20:15: White Blood Count 13.2H, Red Blood Count 3.75L, Hemoglobin 11.3L, Hematocrit 37.2L, Mean Corpuscular Volume 99, Mean Corpuscular Hemoglobin 30.2, Mean Corpuscular Hemoglobin Concent 30.4L, Red Cell Distribution Width 19.0H, Platelet Count 188, Mean Platelet Volume 5.9L, Neutrophils (%) (Auto) 77.4H, Lymphocytes (%) (Auto) 8.2L, Monocytes (%) (Auto) 10.7H, Eosinophils (%) (Auto) 2.9, Basophils (%) (Auto) 0.9, Activated Partial Thromboplast Time 99H, D-Dimer 2.44H, Sodium Level 138, Potassium Level 3.2L, Chloride Level 97L, Carbon Dioxide Level 29, Anion Gap 12, Blood Urea Nitrogen 34H, Creatinine 6.7H, Estimat Glomerular Filtration Rate 10.1, Glucose Level 78, Calcium Level 7.8L, Total Bilirubin 0.3, Aspartate Amino Transf (AST/SGOT) 42H, Alanine Aminotransferase (ALT/SGPT) 38, Alkaline Phosphatase 338H, Troponin I 0.060H, Total Protein 7.3, Albumin 2.4L, Globulin 4.9, Albumin/Globulin Ratio 0.5L, Hepatitis B Surface Antigen [Pending] 10/04/19 03:40: White Blood Count 12.2H, Red Blood Count 3.60L, Hemoglobin 10.9L, Hematocrit 35.2L, Mean Corpuscular Volume 98, Mean Corpuscular Hemoglobin 30.2, Mean Corpuscular Hemoglobin Concent 30.9L, Red Cell Distribution Width 17.6H, Platelet Count 188, Mean Platelet Volume 5.9L, Neutrophils (%) (Auto) 77.6H, Lymphocytes (%) (Auto) 9.0L, Monocytes (%) (Auto) 10.2H, Eosinophils (%) (Auto) 2.2, Basophils (%) (Auto) 0.9, Activated Partial Thromboplast Time 80H, Sodium Level 137, Potassium Level 3.5, Chloride Level 96L, Carbon Dioxide Level 27, Anion Gap 14, Blood Urea Nitrogen 35H, Creatinine 7.0H, Estimat Glomerular Filtration Rate 9.6, Glucose Level 69L, Calcium Level 7.4L, Prothrombin Time 15.9H, Prothromb Time International Ratio 1.5H, Triglycerides Level 70 Height (Feet): 5 Height (Inches): 6.00 Weight (Pounds): 183 General Appearance: other - sedated on vent, levo 6 Cardiovascular: regularly irregular Respiratory/Chest: rhonchi - bilaterally Abdomen: non tender, soft Extremities: moderate edema Neurologic: unresponsive Smith Tidwell MD Oct 04, 2019 14:50
--- NOTE | 2019-10-04 16:00 | Pulmonolgy Critical Care Note ---
Critical Care - Asmt/Plan Assessment/Plan: Pulmonary CCM Progress Note HISTORY OF PRESENT ILLNESS: This is a 69-year-old male with a history of ESRD on dialysis. He previously also had a cardiac valve replaced. He previously missed hemodialysis dialysis,admitted with respiratory failure. The patient has a previous history of right lower extremity amputation as well as previous vascular bypass. Had cardiac arrhythmias and suffered a cardiopulmonary arrest. PHYSICAL EXAMINATION: GENERAL: No distress, sedated on ventilator VITAL SIGNS NOTED HEENT: Unremarkable. Endotracheal tube is in place. CHEST: Diminished breath sounds bilaterally. There is a right subclavian PermCath noted. CARDIOVASCULAR: Heart sounds are normal. ABDOMEN: Soft, nondistended. EXTREMITIES: He has right BKA. There is no appreciable edema. LABORATORY DATA NOTED X-ray chest Right pleural effusion, evidence of pulmonary edema, ETT 7cm, GGT appropriate on AXR IMPRESSION: 1. ESRD, on dialysis. 2. Pulmonary edema. 3. Cardiac arrhythmias with A-flutter/AFib. 4. Status post cardiopulmonary arrest. 5. Previous right BKA. DISCUSSION: Continue current Ventilator settings, wean as tolerated Sedation PRN PPX HD per Nephrology Cardiology following. Poor Prognosis Monitor labs Critical Care - Objective Last 24 Hour Vital Signs Date Time Temp Pulse Resp B/P (MAP) Pulse Ox O2 Delivery O2 Flow Rate FiO2 10/04/19 13:00 103/48 10/04/19 12:30 68 18 35 10/04/19 12:15 68 18 103/48 (66) 100 68 10/04/19 12:00 68 18 102/48 (66) 100 68 10/04/19 12:00 68 100/50 10/04/19 12:00 90 10/04/19 11:15 68 17 100 Mechanical Ventilator 35 69 17 35 10/04/19 11:00 68 19 103/50 (67) 100 10/04/19 10:00 68 20 103/51 (68) 100 10/04/19 09:30 70 19 104/50 (68) 100 10/04/19 09:00 69 20 35 10/04/19 09:00 68 19 105/49 (67) 100 10/04/19 08:54 92 84/44 10/04/19 08:53 84/44 10/04/19 08:30 69 20 101/47 (65) 100 8/15/20 08:00 69 10/04/19 08:00 100.0 69 19 99/48 (65) 100 10/04/19 08:00 Mechanical Ventilator Mechanical Ventilator 10/04/19 07:24 92 17 100 Mechanical Ventilator 35 89 16 35 10/04/19 07:24 100 Mechanical Ventilator 35 10/04/19 07:06 19 110/44 Mechanical Ventilator 35 10/04/19 07:00 23 110/44 Mechanical Ventilator 35 10/04/19 07:00 110/44 10/04/19 07:00 92 23 110/44 (66) 100 10/04/19 06:45 92 23 108/45 (66) 100 10/04/19 06:30 92 19 110/47 (68) 100 10/04/19 06:15 92 22 107/51 (69) 100 10/04/19 06:00 20 114/51 Mechanical Ventilator 35 10/04/19 06:00 114/51 10/04/19 06:00 92 20 114/51 (72) 100 10/04/19 05:51 92 104/45 10/04/19 05:45 92 18 104/45 (64) 100 10/04/19 05:30 92 20 112/46 (68) 100 10/04/19 05:15 92 18 114/46 (68) 100 10/04/19 05:11 92 18 35 10/04/19 05:10 35 10/04/19 05:00 92 14 105/50 (68) 100 10/04/19 05:00 14 105/50 Mechanical Ventilator 40 10/04/19 05:00 105/50 10/04/19 04:45 91 16 111/46 (67) 100 10/04/19 04:30 93 17 109/52 (71) 100 10/04/19 04:15 92 17 110/56 (74) 100 10/04/19 04:00 Mechanical Ventilator 10/04/19 04:00 98.6 92 15 112/54 (73) 100 10/04/19 04:00 15 112/54 Mechanical Ventilator 40 10/04/19 04:00 112/54 10/04/19 04:00 40 10/04/19 03:45 92 16 108/62 (77) 100 10/04/19 03:30 93 17 109/57 (74) 100 10/04/19 03:23 93 19 100 Mechanical Ventilator 40 93 16 10/04/19 03:15 93 18 101/58 (72) 100 10/04/19 03:00 93 19 108/60 (76) 100 10/04/19 03:00 19 108/60 Mechanical Ventilator 40 10/04/19 03:00 108/60 10/04/19 03:00 92 10/04/19 02:45 91 18 110/65 (80) 100 10/04/19 02:30 89 21 103/58 (73) 100 10/04/19 02:15 93 20 112/72 (85) 100 10/04/19 02:00 17 107/91 Mechanical Ventilator 40 10/04/19 02:00 107/91 10/04/19 02:00 92 17 107/91 (96) 100 10/04/19 01:45 94 17 113/70 (84) 100 10/04/19 01:30 92 18 114/60 (78) 100 10/04/19 01:25 92 19 40 10/04/19 01:15 95 17 113/66 (82) 100 10/04/19 01:00 18 114/62 Mechanical Ventilator 40 10/04/19 01:00 114/62 10/04/19 01:00 91 18 114/62 (79) 100 10/04/19 00:45 92 18 109/66 (80) 100 10/04/19 00:30 92 17 108/61 (77) 100 10/04/19 00:15 92 18 116/57 (76) 100 10/04/19 00:00 40 10/04/19 00:00 17 114/58 Mechanical Ventilator 40 10/04/19 00:00 114/58 10/04/19 00:00 Mechanical Ventilator 10/04/19 00:00 98.9 91 17 114/58 (76) 100 10/03/19 23:54 91 113/58 10/03/19 23:45 91 17 113/58 (76) 100 10/03/19 23:30 91 16 114/58 (76) 100 10/03/19 23:15 91 17 119/59 (79) 100 10/03/19 23:11 91 18 100 Mechanical Ventilator 45 91 16 10/03/19 23:06 91 10/03/19 23:00 91 16 118/62 (80) 100 10/03/19 23:00 16 118/62 Mechanical Ventilator 45 10/03/19 23:00 118/62 10/03/19 22:53 14 117/59 Mechanical Ventilator 45 10/03/19 22:45 90 16 117/59 (78) 100 10/03/19 22:30 90 14 122/60 (80) 100 10/03/19 22:15 90 16 127/61 (83) 100 10/03/19 22:00 90 12 118/58 (78) 100 10/03/19 22:00 12 118/58 Mechanical Ventilator 45 10/03/19 22:00 118/58 10/03/19 21:45 18 113/58 Mechanical Ventilator 45 10/03/19 21:45 90 18 113/58 (76) 100 10/03/19 21:30 20 131/65 Mechanical Ventilator 45 10/03/19 21:30 131/65 10/03/19 21:30 89 20 131/65 (87) 100 10/03/19 21:15 89 15 126/63 (84) 100 10/03/19 21:15 15 126/63 Mechanical Ventilator 45 10/03/19 21:10 45 10/03/19 21:05 88 16 45 10/03/19 21:00 89 14 129/61 (83) 100 10/03/19 21:00 14 129/61 Mechanical Ventilator 50 10/03/19 21:00 129/61 10/03/19 20:52 82 118/61 10/03/19 20:45 87 19 118/61 (80) 100 10/03/19 20:30 71 15 111/67 (82) 100 10/03/19 20:00 50 10/03/19 20:00 Mechanical Ventilator 10/03/19 20:00 98.4 67 15 107/62 (77) 100 10/03/19 20:00 15 107/62 Mechanical Ventilator 50 10/03/19 20:00 107/62 10/03/19 19:48 65 10/03/19 19:45 72 16 110/57 (74) 100 10/03/19 19:30 67 17 112/57 (75) 100 10/03/19 19:15 89 10 130/65 (86) 100 10/03/19 19:03 88 16 100 Mechanical Ventilator 50 89 16 10/03/19 19:03 99 Mechanical Ventilator 50 10/03/19 19:00 16 125/62 Mechanical Ventilator 50 10/03/19 19:00 125/62 10/03/19 19:00 89 17 128/65 (86) 100 10/03/19 18:45 89 15 125/62 (83) 100 10/03/19 18:30 98.4 88 16 135/66 (89) 100 10/03/19 18:15 89 15 126/77 (93) 100 10/03/19 18:00 16 141/66 Mechanical Ventilator 50 10/03/19 18:00 141/66 10/03/19 18:00 88 18 141/66 (91) 100 10/03/19 17:45 88 18 159/77 (104) 100 10/03/19 17:30 87 16 143/70 (94) 100 10/03/19 17:15 88 16 147/69 (95) 100 10/03/19 17:00 77 16 102/57 (72) 100 10/03/19 17:00 16 102/57 Mechanical Ventilator 50 10/03/19 17:00 102/57 10/03/19 16:57 68 16 108/59 (75) 100 10/03/19 16:45 88 17 150/91 (110) 100 10/03/19 16:31 66 17 50 10/03/19 16:30 50 10/03/19 16:30 77 19 138/71 (93) 100 10/03/19 16:15 73 18 136/71 (92) 100 10/03/19 16:00 100 10/03/19 16:00 16 127/77 Mechanical Ventilator 100 10/03/19 16:00 127/77 10/03/19 16:00 Mechanical Ventilator 10/03/19 16:00 63 10/03/19 16:00 97.3 66 17 127/77 (94) 100 Micro: Microbiology Date/Time Source Procedure Growth Status 10/02/19 19:05 Nasopharynx SARS-CoV-2 RdRp Gene Assay - Final Complete 10/02/19 20:00 Rectum Received Accucheck: 139 Critical Care - Subjective ROS Limited/Unobtainable: No Condition: stable IV Access: central FI02: 35 Vent Support Breath Rate: 16 Vent Support Mode: AC Vent Tidal Volume: 500 Sputum Amount: None PEEP: 5.0 PIP: 24 I&O: Intake and Output 10/03/19 10/04/19 19:00 07:00 Intake Total 391.963 ml 710.344 ml Output Total 4000 ml Balance -3608.037 ml 710.344 ml IV Total 391.963 ml 560.344 ml Other 150 ml Output Hemodialysis UF 4000 ml # Bowel Movements 2 ET-Tube: 7.5 ET Position: 22 Eloy Glasgow MD Oct 04, 2019 15:59
--- NOTE | 2019-10-04 16:30 | NUR ---
NURSE NOTES: Blood glucose was rechecked, resulted 130, Novolog was held per sliding scale order. Temp is now 99.5F axillary. Pt continues to receive hemodialysis treatment at bedside. VS remain stable while on Levophed at 6mcg/min, -2 light sedation RASS score while on Propofol drip, and Heparin drip infusing at 16units/kg/hour.
--- NOTE | 2019-10-04 17:06 | NUR ---
NURSE NOTES: New Propofol vial was removed from the Pyxis, scanned, verified with second nurse, Denise MCLEOD, and is now infusing at same rate 20mcg/kg/min to maintain RASS score -2 light sedation. Previous bag is empty and was discarded per protocol. IV tubing has been changed, old tubing was wasted in the pharmaceutical biomedical waste and witnessed by second nurse, Susan MCLEOD.
--- NOTE | 2019-10-04 17:06 | NUR ---
NURSE NOTES: Levophed vial was removed from the Pyxis, mixed, scanned and is now infusing at same rate of 6mcg/min to maintain SBP above 90. Old bag is empty and was discarded per protocol.
--- NOTE | 2019-10-04 18:05 | NUR ---
NURSE NOTES: Hemodialysis treatment is now complete. 3L of fluid was removed by HD nurse, Jordan MCLEOD. Pt tolerated procedure well and was maintained on Levophed at 6mcg/min and Propofol sedation during dialysis. Levophed is now titrated down to 2mcg/min.
[2019-10-04] MEDS ORDERED: Surgicel 4in x 8in TOPIC ONE (18:30)
--- NOTE | 2019-10-04 18:38 | Surgery Progress Note ---
Surgery Progress Note Subjective Additional Comments ill appearing on support weaning Objective Last 24 Hour Vital Signs Date Time Temp Pulse Resp B/P (MAP) Pulse Ox O2 Delivery O2 Flow Rate FiO2 10/04/19 18:31 119/75 10/04/19 18:31 120 119/75 10/04/19 17:08 103/48 10/04/19 17:06 24 103/48 Mechanical Ventilator 2.0 35 10/04/19 17:00 120 23 35 10/04/19 16:00 35 10/04/19 15:21 90 24 100 Mechanical Ventilator 35 90 24 35 10/04/19 13:00 103/48 10/04/19 12:30 68 18 35 10/04/19 12:15 68 18 103/48 (66) 100 68 10/04/19 12:00 68 18 102/48 (66) 100 68 10/04/19 12:00 68 100/50 10/04/19 12:00 35 10/04/19 12:00 90 10/04/19 11:15 68 17 100 Mechanical Ventilator 35 69 17 35 10/04/19 11:00 68 19 103/50 (67) 100 10/04/19 10:00 68 20 103/51 (68) 100 10/04/19 09:30 70 19 104/50 (68) 100 10/04/19 09:00 69 20 35 10/04/19 09:00 68 19 105/49 (67) 100 10/04/19 08:54 92 84/44 10/04/19 08:53 84/44 10/04/19 08:30 69 20 101/47 (65) 100 10/04/19 08:00 69 10/04/19 08:00 100.0 69 19 99/48 (65) 100 10/04/19 08:00 Mechanical Ventilator Mechanical Ventilator 10/04/19 07:24 92 17 100 Mechanical Ventilator 35 89 16 35 10/04/19 07:24 100 Mechanical Ventilator 35 10/04/19 07:06 19 110/44 Mechanical Ventilator 35 10/04/19 07:00 23 110/44 Mechanical Ventilator 35 10/04/19 07:00 110/44 10/04/19 07:00 92 23 110/44 (66) 100 10/04/19 06:45 92 23 108/45 (66) 100 10/04/19 06:30 92 19 110/47 (68) 100 10/04/19 06:15 92 22 107/51 (69) 100 10/04/19 06:00 20 114/51 Mechanical Ventilator 35 10/04/19 06:00 114/51 10/04/19 06:00 92 20 114/51 (72) 100 10/04/19 05:51 92 104/45 10/04/19 05:45 92 18 104/45 (64) 100 10/04/19 05:30 92 20 112/46 (68) 100 10/04/19 05:15 92 18 114/46 (68) 100 10/04/19 05:11 92 18 35 10/04/19 05:10 35 10/04/19 05:00 92 14 105/50 (68) 100 10/04/19 05:00 14 105/50 Mechanical Ventilator 40 10/04/19 05:00 105/50 10/04/19 04:45 91 16 111/46 (67) 100 10/04/19 04:30 93 17 109/52 (71) 100 10/04/19 04:15 92 17 110/56 (74) 100 10/04/19 04:00 Mechanical Ventilator 10/04/19 04:00 98.6 92 15 112/54 (73) 100 10/04/19 04:00 15 112/54 Mechanical Ventilator 40 10/04/19 04:00 112/54 10/04/19 04:00 40 10/04/19 03:45 92 16 108/62 (77) 100 10/04/19 03:30 93 17 109/57 (74) 100 10/04/19 03:23 93 19 100 Mechanical Ventilator 40 93 16 10/04/19 03:15 93 18 101/58 (72) 100 10/04/19 03:00 93 19 108/60 (76) 100 10/04/19 03:00 19 108/60 Mechanical Ventilator 40 10/04/19 03:00 108/60 10/04/19 03:00 92 10/04/19 02:45 91 18 110/65 (80) 100 10/04/19 02:30 89 21 103/58 (73) 100 10/04/19 02:15 93 20 112/72 (85) 100 10/04/19 02:00 17 107/91 Mechanical Ventilator 40 10/04/19 02:00 107/91 10/04/19 02:00 92 17 107/91 (96) 100 10/04/19 01:45 94 17 113/70 (84) 100 10/04/19 01:30 92 18 114/60 (78) 100 10/04/19 01:25 92 19 40 10/04/19 01:15 95 17 113/66 (82) 100 10/04/19 01:00 18 114/62 Mechanical Ventilator 40 10/04/19 01:00 114/62 10/04/19 01:00 91 18 114/62 (79) 100 10/04/19 00:45 92 18 109/66 (80) 100 10/04/19 00:30 92 17 108/61 (77) 100 10/04/19 00:15 92 18 116/57 (76) 100 10/04/19 00:00 40 10/04/19 00:00 17 114/58 Mechanical Ventilator 40 10/04/19 00:00 114/58 10/04/19 00:00 Mechanical Ventilator 10/04/19 00:00 98.9 91 17 114/58 (76) 100 10/03/19 23:54 91 113/58 10/03/19 23:45 91 17 113/58 (76) 100 10/03/19 23:30 91 16 114/58 (76) 100 10/03/19 23:15 91 17 119/59 (79) 100 10/03/19 23:11 91 18 100 Mechanical Ventilator 45 91 16 10/03/19 23:06 91 10/03/19 23:00 91 16 118/62 (80) 100 10/03/19 23:00 16 118/62 Mechanical Ventilator 45 10/03/19 23:00 118/62 10/03/19 22:53 14 117/59 Mechanical Ventilator 45 10/03/19 22:45 90 16 117/59 (78) 100 10/03/19 22:30 90 14 122/60 (80) 100 10/03/19 22:15 90 16 127/61 (83) 100 10/03/19 22:00 90 12 118/58 (78) 100 10/03/19 22:00 12 118/58 Mechanical Ventilator 45 10/03/19 22:00 118/58 10/03/19 21:45 18 113/58 Mechanical Ventilator 45 10/03/19 21:45 90 18 113/58 (76) 100 10/03/19 21:30 20 131/65 Mechanical Ventilator 45 10/03/19 21:30 131/65 10/03/19 21:30 89 20 131/65 (87) 100 10/03/19 21:15 89 15 126/63 (84) 100 10/03/19 21:15 15 126/63 Mechanical Ventilator 45 10/03/19 21:10 45 10/03/19 21:05 88 16 45 10/03/19 21:00 89 14 129/61 (83) 100 10/03/19 21:00 14 129/61 Mechanical Ventilator 50 10/03/19 21:00 129/61 10/03/19 20:52 82 118/61 10/03/19 20:45 87 19 118/61 (80) 100 10/03/19 20:30 71 15 111/67 (82) 100 10/03/19 20:00 50 10/03/19 20:00 Mechanical Ventilator 10/03/19 20:00 98.4 67 15 107/62 (77) 100 10/03/19 20:00 15 107/62 Mechanical Ventilator 50 10/03/19 20:00 107/62 10/03/19 19:48 65 10/03/19 19:45 72 16 110/57 (74) 100 10/03/19 19:30 67 17 112/57 (75) 100 10/03/19 19:15 89 10 130/65 (86) 100 10/03/19 19:03 88 16 100 Mechanical Ventilator 50 89 16 10/03/19 19:03 99 Mechanical Ventilator 50 10/03/19 19:00 16 125/62 Mechanical Ventilator 50 10/03/19 19:00 125/62 10/03/19 19:00 89 17 128/65 (86) 100 10/03/19 18:45 89 15 125/62 (83) 100 I&O Intake and Output 10/03/19 10/04/19 19:00 07:00 Intake Total 391.963 ml 710.344 ml Output Total 4000 ml Balance -3608.037 ml 710.344 ml IV Total 391.963 ml 560.344 ml Other 150 ml Output Hemodialysis UF 4000 ml # Bowel Movements 2 Dressing: other Wound: other Cardiovascular: RSR Respiratory: decreased breath sounds Abdomen: soft, non-tender, present bowel sounds Extremities: edema, no cyanosis Laboratory Tests Test 10/03/19 20:15 10/04/19 03:40 10/04/19 16:10 White Blood Count 13.2 K/UL (4.8-10.8) H 12.2 K/UL (4.8-10.8) H Red Blood Count 3.75 M/UL (4.70-6.10) L 3.60 M/UL (4.70-6.10) L Hemoglobin 11.3 G/DL (14.2-18.0) L 10.9 G/DL (14.2-18.0) L Hematocrit 37.2 % (42.0-52.0) L 35.2 % (42.0-52.0) L Mean Corpuscular Volume 99 FL (80-99) 98 FL (80-99) Mean Corpuscular Hemoglobin 30.2 PG (27.0-31.0) 30.2 PG (27.0-31.0) Mean Corpuscular Hemoglobin Concent 30.4 G/DL (32.0-36.0) L 30.9 G/DL (32.0-36.0) L Red Cell Distribution Width 19.0 % (11.6-14.8) H 17.6 % (11.6-14.8) H Platelet Count 188 K/UL (150-450) 188 K/UL (150-450) Mean Platelet Volume 5.9 FL (6.5-10.1) L 5.9 FL (6.5-10.1) L Neutrophils (%) (Auto) 77.4 % (45.0-75.0) H 77.6 % (45.0-75.0) H Lymphocytes (%) (Auto) 8.2 % (20.0-45.0) L 9.0 % (20.0-45.0) L Monocytes (%) (Auto) 10.7 % (1.0-10.0) H 10.2 % (1.0-10.0) H Eosinophils (%) (Auto) 2.9 % (0.0-3.0) 2.2 % (0.0-3.0) Basophils (%) (Auto) 0.9 % (0.0-2.0) 0.9 % (0.0-2.0) Activated Partial Thromboplast Time 99 SEC (23-33) H 80 SEC (23-33) H D-Dimer 2.44 mg/L FEU (0.00-0.49) H Sodium Level 138 MMOL/L (136-145) 137 MMOL/L (136-145) Potassium Level 3.2 MMOL/L (3.5-5.1) L 3.5 MMOL/L (3.5-5.1) Chloride Level 97 MMOL/L (98-107) L 96 MMOL/L (98-107) L Carbon Dioxide Level 29 MMOL/L (21-32) 27 MMOL/L (21-32) Anion Gap 12 mmol/L (5-15) 14 mmol/L (5-15) Blood Urea Nitrogen 34 mg/dL (7-18) H 35 mg/dL (7-18) H Creatinine 6.7 MG/DL (0.55-1.30) H 7.0 MG/DL (0.55-1.30) H Estimat Glomerular Filtration Rate 10.1 mL/min (>60) 9.6 mL/min (>60) Glucose Level 78 MG/DL (74-106) 69 MG/DL (74-106) L Calcium Level 7.8 MG/DL (8.5-10.1) L 7.4 MG/DL (8.5-10.1) L Total Bilirubin 0.3 MG/DL (0.2-1.0) Aspartate Amino Transf (AST/SGOT) 42 U/L (15-37) H Alanine Aminotransferase (ALT/SGPT) 38 U/L (12-78) Alkaline Phosphatase 338 U/L (46-116) H Troponin I 0.060 ng/mL (0.000-0.056) 0.067 ng/mL (0.000-0.056) Total Protein 7.3 G/DL (6.4-8.2) Albumin 2.4 G/DL (3.4-5.0) L Globulin 4.9 g/dL Albumin/Globulin Ratio 0.5 (1.0-2.7) L Hepatitis B Surface Antigen Pending Prothrombin Time 15.9 SEC (9.30-11.50) H Prothromb Time International Ratio 1.5 (0.9-1.1) H Triglycerides Level 70 MG/DL (30-150) Plan Problems: (1) Cardiopulmonary arrest Assessment & Plan: in ICU on support weaning labs noted cont current care Assessment of pt's skin limited as pt is stable at present to be turned in bed. Generalized edemae noted. Shaft of penis is swollen,erythematous and oozing small amt purulent exudate from meatus. At head of Penis is an irregular shaped wound with 100% slough at base of wound(L)3cm x (W)2.5cm. Edges are erythematous with surrounding erythema shaft. Laterally, but in close proximity is small pustule(L)0.5cm x (W)0.4cm.Along foreskin is erythematous and swollen. 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 No surrounding erythema or evidence of further skin breakdown noted. L Lower ext noted to have very snugged sharee wrap which was removed. Xerosis skin with Haemosiderin deposits noted to LLE. LLE washed and moisturized to better assess wounds. Two areas of dry pink epithelial noted to dorsal and lateral L tibia. Linear Dry eschar noted to posterior L Knee (L)1.2cm x (W)9.5cm. No surrounding erythema or induration noted. Full thickness wound L Hallux(L)3cm x (W)2.5cm.Base of wound is 100% yellow slough. Margins are erythematous. Periwound is dark and indurated. Wound is malodorous. No exudate noted. L 5th TMA noted. At distal /lateral L foot is a Full Thickness wound(L)2cm x (W) 2.5cm. Base of wound is 80% mixed slough and eschar,20% carol. Edges are macerated. Small amt seropurulent exudate noted. Wound is malodorous. At Plantar aspect of L foot at 3rd and 4th metatarsal heads is a full thickness wound that is malodorous. (L)1.5cm x (W)1cm. Base of wound is mixed soft necrosis and slough. Small amt seropurulent exudate noted. Periwound skin is callused but no erythema noted. DTPI noted to L heel (L)3.1cm x (W)2cm. Base of injury is purpuric and fluctuant. Surrounding areas of L heel is boggy without erythema. Hyperpigmentation from previous wound noted to medial L malleolus. Will plan to assess Back and sacral area when pt is stable to be turned. Tx.Plan:Cleanse wound Penis with Saline. Apply Nickel thick layer of Santyl with saline moistened 2x2 gauze Daily and prn. Apply Bactroban to wounds on Penis TID as directed by . Cleanse Wounds L Foot with Saline. Apply Nickel Thick layer Santyl. Apply Saline moistened gauze to each wound. Cover with ABD pad. Wrap with Kerlix Daily and prn. Apply Cavilon Skin Barrier to posterior L Knee Daily and prn. Moisturize dry skin LLE daily with each drsg changes. Apply Cavilon Skin Barrier to L Heel daily. Apply Cavilon Skin Barrier to base of R BKA Stump. Cover with ABD Pad. Wrap with Kerlix every 3 days and prn. Apply Moisture Barrier Paste to sacrum. Cover with Optifoam drsg. Change every 3 days and prn. Reposition at least every 2hours or as tolerated. Off-load L Heel with Pillow. Off-load L BKA with Pillow. APM/NATHALY Mattress overlay. (2) Bilateral pleural effusion Assessment & Plan: Interim endotracheal intubation, endotracheal tube tip in good position projecting approximately 7 cm above the ravinder. Interim placement of an orogastric tube, tip of which projects beyond the edge of the image, position therefore indeterminate. Right jugular dialysis catheter is again demonstrated. Large right pleural effusion, mild interstitial edema bilaterally persist. Impression: Satisfactory endotracheal intubation. Patient's nurse notified at the time of interpretation Status post nasogastric intubation, tip below the diaphragm but otherwise position indeterminate. (3) CHF (congestive heart failure) (4) Hypoxia (5) ARF (acute renal failure) (6) Injury of left upper extremity (7) bleeding AV shunt (8) Diabetes (9) Hypertension, benign (10) Anemia in chronic kidney disease (11) Dialysis AV fistula malfunction (12) Abnormal laboratory test result (13) Respiratory distress (14) Hyperglycemia (15) Asthma (16) CHF exacerbation (17) Atrial flutter (18) End-stage renal disease (19) SVT (supraventricular tachycardia) Bolivar Barrios Oct 04, 2019 18:38
--- NOTE | 2019-10-04 19:00 | NUR ---
NURSE NOTES: Pt had BM x1, soft/pasty/brown. Pt was cleaned, gown/bed linens were changed, and pt repositioned for comfort. Oral care was done. Levophed drip was titrated back up to 6mcg/min to maintain SBP above 90, since it dropped to 89. Fentanyl drip remains at 20mcg/kg/min to maintain RASS score -2 light sedation.
--- NOTE | 2019-10-04 19:30 | NUR ---
NURSE HAND-OFF REPORT: Latest Vital Signs: Temperature 99.5 , Pulse 108 , B/P 100 /49 , Respiratory Rate 8 , O2 SAT 100 , Mechanical Ventilator, O2 Flow Rate 2.0 . Vital Sign Comment: VS remain stable 117/55, HR88, while pt is on Levophed, which had to be titrated back up to 6mcg from 2mcg, since SBP dropped below 90, after completion of hemodialysis treatment. EKG Rhythm: Atrial Fibrillation Rhythm change?: N MD Notified?: Shawn TEAGUE/NARINDER TO TASHA Garcia MD Response: Latest Roman Fall Score: 70 Fall Risk: High Risk Safety Measures: Call light Within Reach, Bed Alarm Zone 1, Side Rails Side Rails x3, Bed position Low and Locked. Fall Precautions: Yes Yellow Socks Door Sign Patient Fall Education Report given to Jorge RN. Endorsed plan of care.
[2019-10-04] MEDS: Dyna-Hex 2% Top Sol 2oz TOPIC SCH (19:44)
--- NOTE | 2019-10-04 19:50 | NUR ---
NURSE NOTES: le: PATIENT SEDATED, RESPIRATION REGULAR ON ETT TO VENT AC 16/TV 500/FIO2 50%/PEEP 5, O2 SATURATION 100%, HR 80'S/MIN A- FLUTTER STATUS, OGT INTACT AND PATENT, NO N/V NOTED, KEPT HOB 30 DEGREES AND ASPIRATION PRECAUTION, ABDOMEN SOFT, NON TENDER, ANURIC STATUS, AV SHUNT TO LEFT UPPER ARM, NO BLEEDING STATUS, KEPT LEFT ARM PRECAUTION, RIGHT BKA STATUS, PERMA CATH TO RIGHT CHEST, TLC TO RIGHT FEMORAL, INTACT AND PATENT, ONGOING PROPOFOL 20MCG/KG/MIN, LEVOPHED 6MCG/MIN AND HEPARIN 16 UNIT/KG/HR VIA TLC, KEPT RASS SCORE -2, 2 POINT SOFT RESTRAINTS STATUS, MADE LOWER BED POSITION, ON P200 BED, BED ALARM AND LOCKED, PLACED CALL LIGHT WITHIN REACH, WILL CONTINUE TO MONITOR.
[2019-10-04] MEDS: Atorvastatin 20mg tab ORAL SCH (20:46)
[2019-10-04] MEDS ORDERED: Levemir Flexpen SUBQ SCH (21:00)
--- NOTE | 2019-10-04 22:05 | NUR ---
NURSE NOTES: BP 107/46MMHG WITH LEVOPHED 4MCG/MIN AND SEDATED, RASS SCORE -2 WITH PROPOFOL DRIP 20MCG/KG/MIN AT THIS TIME, WILL CONTINUE TO MONITOR.
[2019-10-05] VITALS (50 sets, daily range): BP systolic 86–116; BP diastolic 36–78
--- NOTE | 2019-10-05 | NUR ---
NURSE NOTES: LE: ORAL CARE AND REPOSITIONED, NO DISTRESS NOTED AT THIS TIME.
[2019-10-05] MEDS: Heparin 25,000u/D5W 500ml 500 ML IV SCH ×2 (01:49→18:33)
--- NOTE | 2019-10-05 02:10 | NUR ---
NURSE NOTES: PATIENT OPEN EYES TO NAME, TRIED TO TOUCH LINE WHEN AWOKE, RELEASED RESTRAINTS AND SECURED, WILL CONTINUE TO MONITOR.
[2019-10-05] MEDS: Ipratropium 0.02% Inh Soln 2.5ml UD HHN SCH ×6 (02:20→22:59)
--- NOTE | 2019-10-05 04:10 | NUR ---
NURSE NOTES: MORNING CARE AND ORAL CARE WAS DONE, NO BM STATUS, WILL CONTINUE PLAN OF CARE.
--- NOTE | 2019-10-05 04:53 | NUR ---
NURSE NOTES: NOTED PTT 70SEC, NO CHANGE HEPARIN RATE, KEPT 16UNIT/KG/HR PER PROTOCOLS.
[2019-10-05] MEDS: dilTIAZem HCl 90mg tab ORAL SCH ×3 (05:41→17:10)
--- NOTE | 2019-10-05 05:44 | NUR ---
NURSE NOTES: LE: NOTED BS 34MG/DL AT 0528AM AND BS 40MG/DL AT 0528AM. GIVEN D50%W 50ML BY IVP PER PROTOCOLS AT 0531AM. BS 105 MG/DL NOTED AT THIS TIME.
[2019-10-05] MEDS: NovoLOG Insulin Flexpen SUBQ SCH ×4 (06:13→20:47)
--- NOTE | 2019-10-05 06:18 | NUR ---
NURSE NOTES: PATIENT SEDATED, RESPONSE TO NAME, RASS SCORE -1 NOTED AT THIS TIME, WILL CONTINUE TO MONITOR.
[2019-10-05] MEDS: propofoL 1,000mg/100ml 100 ML IV SCH ×5 (07:03→22:01)
--- NOTE | 2019-10-05 07:18 | NUR ---
NURSE HAND-OFF REPORT: Latest Vital Signs: Temperature 99.6 , Pulse 65 , B/P 86 /43 , Respiratory Rate 18 , O2 SAT 100 , Mechanical Ventilator, O2 Flow Rate . Vital Sign Comment: EKG Rhythm: Atrial Flutter Rhythm change?: N Notified?: Shawn TEAGUE/NARINDER TO TASHA Garcia MD Response: Latest Roman Fall Score: 70 Fall Risk: High Risk Safety Measures: Call light Within Reach, Bed Alarm Zone 1, Side Rails Side Rails x3, Bed position Low and Locked. Fall Precautions: Y Yellow Socks Door Sign: Y Patient Fall Education Report given to SHANI JOHNSON.
--- NOTE | 2019-10-05 07:28 | Pulmonolgy Critical Care Note ---
Critical Care - Asmt/Plan Assessment/Plan: Pulmonary CCM Progress Note HISTORY OF PRESENT ILLNESS: This is a 69-year-old male with a history of ESRD on dialysis. He previously also had a cardiac valve replaced. He previously missed hemodialysis dialysis,admitted with respiratory failure. The patient has a previous history of right lower extremity amputation as well as previous vascular bypass. Had cardiac arrhythmias and suffered a cardiopulmonary arrest. Remains intubated on pressors PHYSICAL EXAMINATION: GENERAL: No distress, sedated on ventilator VITAL SIGNS NOTED HEENT: Unremarkable. Endotracheal tube is in place. CHEST: Diminished breath sounds bilaterally. There is a right subclavian PermCath noted. CARDIOVASCULAR: Heart sounds are normal. ABDOMEN: Soft, nondistended. EXTREMITIES: He has right BKA. There is no appreciable edema. LABORATORY DATA NOTED X-ray chest Right pleural effusion, evidence of pulmonary edema, ETT 7cm, NGT appropriate on AXR IMPRESSION: 1. ESRD, on dialysis. 2. Pulmonary edema. 3. Cardiac arrhythmias with A-flutter/AFib. 4. Status post cardiopulmonary arrest. 5. Respiratory failure 6. Previous right BKA. DISCUSSION: Continue current Ventilator settings, wean as tolerated once of pressors Sedation PRN PPX HD per Nephrology Cardiology following. Poor Prognosis Monitor labs Critical Care - Objective Last 24 Hour Vital Signs Date Time Temp Pulse Resp B/P (MAP) Pulse Ox O2 Delivery O2 Flow Rate FiO2 10/05/19 07:08 65 18 100 Mechanical Ventilator 35 74 16 35 10/05/19 07:03 18 86/43 Mechanical Ventilator 35 10/05/19 07:00 18 89/43 Mechanical Ventilator 35 10/05/19 07:00 89/43 10/05/19 07:00 65 18 89/43 (58) 100 10/05/19 06:58 65 17 86/43 (57) 100 10/05/19 06:45 66 19 88/42 (57) 100 10/05/19 06:30 99.6 85 25 105/66 (79) 92 10/05/19 06:15 81 18 102/54 (70) 91 10/05/19 06:00 18 93/43 Mechanical Ventilator 35 10/05/19 06:00 93/43 10/05/19 06:00 66 18 93/43 (60) 100 10/05/19 05:41 90 105/57 10/05/19 05:30 76 20 105/57 (73) 94 10/05/19 05:08 74 19 35 10/05/19 05:00 16 97/44 Mechanical Ventilator 35 10/05/19 05:00 97/44 10/05/19 05:00 74 16 97/44 (61) 100 10/05/19 04:30 73 15 102/57 (72) 100 10/05/19 04:00 Mechanical Ventilator Mechanical Ventilator 10/05/19 04:00 99.9 68 15 100/65 (77) 100 10/05/19 04:00 15 100/65 Mechanical Ventilator 35 10/05/19 04:00 100/65 10/05/19 04:00 35 10/05/19 03:30 75 16 108/48 (68) 100 10/05/19 03:28 69 10/05/19 03:00 19 108/45 Mechanical Ventilator 35 10/05/19 03:00 108/45 10/05/19 03:00 70 19 108/45 (66) 100 10/05/19 02:30 72 20 102/60 (74) 96 10/05/19 02:20 69 16 100 Mechanical Ventilator 35 68 16 35 10/05/19 02:00 17 102/52 Mechanical Ventilator 35 10/05/19 02:00 102/52 10/05/19 02:00 68 17 102/51 (68) 90 10/05/19 01:30 66 19 96/46 (63) 100 10/05/19 01:00 66 18 110/70 (83) 100 10/05/19 01:00 18 110/70 Mechanical Ventilator 35 10/05/19 01:00 110/70 10/05/19 00:40 89 16 35 10/05/19 00:30 89 21 108/57 (74) 100 10/05/19 00:00 35 10/05/19 00:00 Mechanical Ventilator Mechanical Ventilator 10/05/19 00:00 19 102/51 Mechanical Ventilator 35 10/05/19 00:00 102/51 10/05/19 00:00 98.6 88 19 102/51 (68) 100 10/05/19 00:00 88 10/04/19 23:36 85 108/57 10/04/19 23:31 20 99/45 Mechanical Ventilator 35 10/04/19 23:30 87 21 108/57 (74) 100 10/04/19 23:00 68 16 98/48 (65) 100 10/04/19 23:00 16 98/48 Mechanical Ventilator 35 10/04/19 23:00 98/48 10/04/19 22:46 87 16 100 Mechanical Ventilator 35 80 16 35 10/04/19 22:30 86 17 108/50 (69) 100 10/04/19 22:00 85 14 107/46 (66) 100 10/04/19 22:00 14 107/46 Mechanical Ventilator 35 10/04/19 22:00 107/46 10/04/19 21:30 90 21 112/48 (69) 100 10/04/19 21:00 90 19 120/54 (76) 100 10/04/19 21:00 19 120/54 Mechanical Ventilator 35 10/04/19 21:00 120/54 10/04/19 21:00 85 19 35 10/04/19 20:46 90 101/63 10/04/19 20:30 91 20 101/63 (76) 100 10/04/19 20:15 88 19 110/56 (74) 100 10/04/19 20:09 90 10/04/19 20:00 99.0 91 21 127/101 (110) 100 10/04/19 20:00 21 127/101 Mechanical Ventilator 35 10/04/19 20:00 127/101 10/04/19 20:00 Mechanical Ventilator Mechanical Ventilator 10/04/19 20:00 35 10/04/19 19:30 90 8 100/49 (66) 100 108 10/04/19 19:28 91 18 100 Mechanical Ventilator 35 90 20 35 10/04/19 19:00 19 100/49 Mechanical Ventilator 35 10/04/19 19:00 100/49 10/04/19 19:00 99 20 98/69 (79) 100 108 10/04/19 18:31 119/75 10/04/19 18:31 120 119/75 10/04/19 18:30 108 24 97/58 (71) 100 10/04/19 18:00 111 20 110/71 (84) 100 10/04/19 18:00 20 119/75 Mechanical Ventilator 35 10/04/19 18:00 119/75 10/04/19 17:30 117 21 121/75 (90) 100 10/04/19 17:08 103/48 10/04/19 17:06 24 103/48 Mechanical Ventilator 2.0 35 10/04/19 17:00 120 23 35 10/04/19 17:00 119 23 121/70 (87) 100 10/04/19 16:30 117 24 130/70 (90) 100 10/04/19 16:00 35 10/04/19 16:00 99.5 101 12 120/89 (99) 100 10/04/19 16:00 21 133/74 Mechanical Ventilator 35 10/04/19 16:00 120/89 10/04/19 16:00 Mechanical Ventilator Mechanical Ventilator 10/04/19 16:00 91 10/04/19 15:30 100 17 134/87 (103) 100 10/04/19 15:21 90 24 100 Mechanical Ventilator 35 90 24 35 10/04/19 15:00 12 119/46 Mechanical Ventilator 35 10/04/19 15:00 119/46 10/04/19 15:00 90 8 119/46 (70) 100 10/04/19 14:30 92 18 124/51 (75) 100 10/04/19 14:00 20 121/52 Mechanical Ventilator 35 10/04/19 14:00 121/52 10/04/19 14:00 90 22 121/52 (75) 100 10/04/19 13:30 68 17 109/52 (71) 100 10/04/19 13:00 99.7 68 17 109/50 (69) 100 10/04/19 13:00 103/48 10/04/19 13:00 17 110/52 Mechanical Ventilator 35 10/04/19 13:00 110/52 10/04/19 12:30 68 18 35 10/04/19 12:15 68 18 103/48 (66) 100 68 10/04/19 12:00 68 18 102/48 (66) 100 68 10/04/19 12:00 68 100/50 10/04/19 12:00 18 103/48 Mechanical Ventilator 35 10/04/19 12:00 103/48 10/04/19 12:00 35 10/04/19 12:00 90 10/04/19 12:00 Mechanical Ventilator Mechanical Ventilator 10/04/19 11:15 68 17 100 Mechanical Ventilator 35 69 17 35 10/04/19 11:00 68 19 103/50 (67) 100 8/15/20 11:00 16 105/47 Mechanical Ventilator 35 10/04/19 11:00 105/47 10/04/19 10:00 19 103/50 Mechanical Ventilator 35 10/04/19 10:00 103/50 10/04/19 10:00 68 20 103/51 (68) 100 10/04/19 09:30 70 19 104/50 (68) 100 10/04/19 09:00 19 104/52 Mechanical Ventilator 35 10/04/19 09:00 104/52 10/04/19 09:00 69 20 35 10/04/19 09:00 68 19 105/49 (67) 100 10/04/19 08:54 92 84/44 10/04/19 08:53 84/44 10/04/19 08:30 69 20 101/47 (65) 100 10/04/19 08:00 69 10/04/19 08:00 100.0 69 19 99/48 (65) 100 10/04/19 08:00 19 97/47 Mechanical Ventilator 35 10/04/19 08:00 97/47 10/04/19 08:00 Mechanical Ventilator Mechanical Ventilator Micro: Microbiology Date/Time Source Procedure Growth Status 10/02/19 20:00 Nasal Nares MRSA Culture - Final NO METHICILLIN RESISTANT STAPH AUREUS... Complete 10/02/19 19:05 Nasopharynx SARS-CoV-2 RdRp Gene Assay - Final Complete 10/02/19 20:00 Rectum Received Accucheck: 105 Critical Care - Subjective ROS Limited/Unobtainable: Yes Condition: critical IV Access: central FI02: 35 Vent Support Breath Rate: 16 Vent Support Mode: AC Vent Tidal Volume: 500 Sputum Amount: Scant PEEP: 5.0 PIP: 36 I&O: Intake and Output 10/04/19 10/05/19 19:00 07:00 Intake Total 694.047 ml 767.953 ml Output Total 3000 ml Balance -2305.953 ml 767.953 ml IV Total 574.047 ml 567.953 ml Other 120 ml 200 ml Output Hemodialysis UF 3000 ml ET-Tube: 7.5 ET Position: 22 Eloy Glasgow MD Oct 05, 2019 07:28
--- NOTE | 2019-10-05 08:00 | NUR ---
NURSE NOTES: Pt was assessed after receiving change of shift report from Jorge MCLEOD. Pt is currently sedated RASS score -2 light sedation while on Propofol drip infusing at 15mcg/kg/min. Pt is also maintained on Levophed drip, currently infusing at 6mcg/min. Pt is also on Heparin drip infusing at 16units/kg/hr, last PTT 70. Pt is orally intubated, ETT 7.5 at 22cm lipline with vent settings AC16, VT500, Peep 5, FIO2 35%, currently at 100% O2Sat. Right upper lobe rhonchi is noted on auscultation. NSR per phototypesetting equipment monitor. Temp 101.1F axillary. OGT is present, NPO/no feeds at this time. OGT is clamped. Abdomen is large, round, soft, with hypoactive bowel sounds. Pt is anuric. Left UA AV shunt is present for HD treatment, bruit/thrill present. Right femoral TLC, patent/intact and connected to IV drips. Pt also has right chest permacath, dressing dry/intact. 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 Pt is on pressure release mattress. HOB at 30 degrees, bed locked, three side rails up. Pt also has bilateral soft wrist restraints despite being on Propofol due to pt reaching for ET tube, to prevent self-extubation. Will continue to monitor pt and follow with plan of care per MD orders and protocol.
[2019-10-05] MEDS: Carvedilol 12.5mg tab ORAL SCH ×2 (08:15→20:45)
[2019-10-05] MEDS: Losartan 50mg tab ORAL SCH (08:15)
--- NOTE | 2019-10-05 09:00 | NUR ---
NURSE NOTES: Pt's contacted the nurse's station and was updated on pt's status. Pt's stated that she will visit the patient tomorrow AM around 0600 to sign "Authorization for Release" to be faxed over to [facility] for requested medical records by Dr. Tidwell.
[2019-10-05 09:06] LABS: BASOPHILS % (AUTO) 0.5 % (0.0-2.0); EOSINOPHILS % (AUTO) 1.1 % (0.0-3.0); HEMOGLOBIN 11.8 G/DL (14.2-18.0); LYMPHOCYTES % (AUTO) 10.1 % (20.0-45.0); MEAN CORPUSCULAR VOLUME 98 FL (80-99); MONOCYTES % (AUTO) 9.1 % (1.0-10.0); NEUTROPHILS % (AUTO) 79.3 % (45.0-75.0); PLATELET COUNT 206 K/UL (150-450); RED BLOOD COUNT 3.96 M/UL (4.70-6.10); RED CELL DISTRIBUTION WIDTH 17.5 % (11.6-14.8); WHITE BLOOD COUNT 15.8 K/UL (4.8-10.8)
[2019-10-05 09:11] LABS: ALANINE AMINOTRANSFERASE 38 U/L (12-78); ALBUMIN 2.5 G/DL (3.4-5.0); ALBUMIN/GLOBULIN RATIO 0.5 (1.0-2.7); ALKALINE PHOSPHATASE 353 U/L (46-116); ANION GAP 9 mmol/L (5-15); ASPARTATE AMINO TRANSFERASE 33 U/L (15-37); BILIRUBIN,TOTAL 0.4 MG/DL (0.2-1.0); BLOOD UREA NITROGEN 25 mg/dL (7-18); CALCIUM 7.1 MG/DL (8.5-10.1); CARBON DIOXIDE 30 MMOL/L (21-32); CHLORIDE 94 MMOL/L (98-107); CREATININE 5.6 MG/DL (0.55-1.30); POTASSIUM 3.7 MMOL/L (3.5-5.1); SODIUM 133 MMOL/L (136-145)
[2019-10-05] MEDS: Furosemide 80mg tab ORAL SCH (09:28)
[2019-10-05] MEDS: Renvela 800mg Pkt ORAL SCH ×3 (09:28→17:19)
[2019-10-05] MEDS: Aspirin Baby 81mg ORAL SCH (09:28)
--- NOTE | 2019-10-05 09:48 | NUR ---
CASE MANAGEMENT:REVIEW 10/04/19 SI;A-FIB/FLUTTER. CHF. ESRD on HD. PULMONARY EDEMA. RESPIRATORY FAILURE. 100.0 120 8 84/44 100% MECH VENT/ORALLY INTUBATED AC 16 TV 500 PEEP 5 FIO2 @ 35% WBC 12.2 CL 96 BUN 35 CR 7 CA 7.4 TROP 0.067 IS;LEVOPHED IV Q24 PROPOFOL IV Q12 ASA NG QD SYNTHROID BG QD HEPARIN GTT COREG NG Q12 ICU STATUS DCP;FROM HOME CASE MANAGEMENT:REVIEW 10/05/19 SI;A-FIB/FLUTTER. CHF. ESRD on HD. PULMONARY EDEMA. RESPIRATORY FAILURE. 99.6 65 18 86/43 100% MECH VENT/ORALLY INTUBATED AC 16 TV 500 PEEP 5 FIO2 @ 35% WBC 15.8 NA 133 CL 94 BUN 25 CR 5.6 CA 7.1 ALK PHOS 353 ALB 2.5 IS;LEVOPHED IV Q24 PROPOFOL IV Q12 ASA NG QD SYNTHROID BG QD HEPARIN GTT COREG NG Q12 ICU STATUS DCP;FROM HOME
[2019-10-05] MEDS: Qvar 40mcg Inhaler 6.8 gm INH SCH ×2 (10:00→22:00)
--- NOTE | 2019-10-05 10:00 | NUR ---
NURSE NOTES: AM meds were administered. Coreg, Losartan and Isordil were held due to hypotension, SBP below 90, pt is currently on Levophed at 6mcg/min. Tylenol was administered per PRN order for current Temp 101.1F axillary.
--- NOTE | 2019-10-05 10:06 | NUR ---
INSURANCE CLINICALS AND REVIEW HAVE BEEN FAXED TO [facility]: [employer] [phone] F:[phone] REF# [id number]
--- NOTE | 2019-10-05 10:45 | NUR ---
NURSE NOTES: Pt was administered Dextrose 50% 25mL per PRN order for Accucheck/blood glucose of 66 at 1021. Blood glucose was reassessed after D50, and is now 139.
--- NOTE | 2019-10-05 11:14 | Nephrology Progress Note ---
Assessment/Plan Problem List: (1) Ulcer of leg due to secondary diabetes (2) Cardiopulmonary arrest (3) CHF (congestive heart failure) (4) Bilateral pleural effusion (5) Diabetes (6) Anemia in chronic kidney disease (7) Atrial flutter (8) End-stage renal disease Plan levophed, low bp,low glu and insulin adjusted, start nephro tube feed, fever and leg wounds, possible osteo, start vanco and cefepime, all icu orders reviewed Subjective ROS Limited/Unobtainable: Yes Objective Objective Last 24 Hour Vital Signs Date Time Temp Pulse Resp B/P (MAP) Pulse Ox O2 Delivery O2 Flow Rate FiO2 10/05/19 10:53 64 18 100 Mechanical Ventilator 35 66 18 35 10/05/19 10:21 100.9 10/05/19 10:00 100.9 70 18 104/63 (77) 100 10/05/19 09:30 67 17 92/78 (83) 99 10/05/19 09:28 66 16 35 10/05/19 09:00 72 19 100/48 (65) 99 10/05/19 08:30 67 17 100/47 (64) 99 10/05/19 08:17 86/43 10/05/19 08:15 86/43 10/05/19 08:15 65 86/43 10/05/19 08:00 Mechanical Ventilator Mechanical Ventilator 10/05/19 08:00 35 10/05/19 08:00 65 10/05/19 08:00 101.1 65 18 94/48 (63) 99 10/05/19 07:08 65 18 100 Mechanical Ventilator 35 74 16 35 10/05/19 07:03 18 86/43 Mechanical Ventilator 35 10/05/19 07:00 18 89/43 Mechanical Ventilator 35 10/05/19 07:00 89/43 10/05/19 07:00 65 18 89/43 (58) 100 10/05/19 06:58 65 17 86/43 (57) 100 10/05/19 06:45 66 19 88/42 (57) 100 10/05/19 06:30 99.6 85 25 105/66 (79) 92 10/05/19 06:15 81 18 102/54 (70) 91 10/05/19 06:00 18 93/43 Mechanical Ventilator 35 8/16/20 06:00 93/43 10/05/19 06:00 66 18 93/43 (60) 100 10/05/19 05:41 90 105/57 10/05/19 05:30 76 20 105/57 (73) 94 10/05/19 05:08 74 19 35 10/05/19 05:00 16 97/44 Mechanical Ventilator 35 10/05/19 05:00 97/44 10/05/19 05:00 74 16 97/44 (61) 100 10/05/19 04:30 73 15 102/57 (72) 100 10/05/19 04:00 Mechanical Ventilator Mechanical Ventilator 10/05/19 04:00 99.9 68 15 100/65 (77) 100 10/05/19 04:00 15 100/65 Mechanical Ventilator 35 10/05/19 04:00 100/65 10/05/19 04:00 35 10/05/19 03:30 75 16 108/48 (68) 100 10/05/19 03:28 69 10/05/19 03:00 19 108/45 Mechanical Ventilator 35 10/05/19 03:00 108/45 10/05/19 03:00 70 19 108/45 (66) 100 10/05/19 02:30 72 20 102/60 (74) 96 10/05/19 02:20 69 16 100 Mechanical Ventilator 35 68 16 35 10/05/19 02:00 17 102/52 Mechanical Ventilator 35 10/05/19 02:00 102/52 10/05/19 02:00 68 17 102/51 (68) 90 10/05/19 01:30 66 19 96/46 (63) 100 10/05/19 01:00 66 18 110/70 (83) 100 10/05/19 01:00 18 110/70 Mechanical Ventilator 35 10/05/19 01:00 110/70 10/05/19 00:40 89 16 35 10/05/19 00:30 89 21 108/57 (74) 100 10/05/19 00:00 35 10/05/19 00:00 Mechanical Ventilator Mechanical Ventilator 10/05/19 00:00 19 102/51 Mechanical Ventilator 35 10/05/19 00:00 102/51 10/05/19 00:00 98.6 88 19 102/51 (68) 100 10/05/19 00:00 88 10/04/19 23:36 85 108/57 10/04/19 23:31 20 99/45 Mechanical Ventilator 35 10/04/19 23:30 87 21 108/57 (74) 100 10/04/19 23:00 68 16 98/48 (65) 100 10/04/19 23:00 16 98/48 Mechanical Ventilator 35 10/04/19 23:00 98/48 10/04/19 22:46 87 16 100 Mechanical Ventilator 35 80 16 35 10/04/19 22:30 86 17 108/50 (69) 100 10/04/19 22:00 85 14 107/46 (66) 100 10/04/19 22:00 14 107/46 Mechanical Ventilator 35 10/04/19 22:00 107/46 10/04/19 21:30 90 21 112/48 (69) 100 10/04/19 21:00 90 19 120/54 (76) 100 10/04/19 21:00 19 120/54 Mechanical Ventilator 35 10/04/19 21:00 120/54 10/04/19 21:00 85 19 35 10/04/19 20:46 90 101/63 10/04/19 20:30 91 20 101/63 (76) 100 10/04/19 20:15 88 19 110/56 (74) 100 10/04/19 20:09 90 10/04/19 20:00 99.0 91 21 127/101 (110) 100 10/04/19 20:00 21 127/101 Mechanical Ventilator 35 10/04/19 20:00 127/101 10/04/19 20:00 Mechanical Ventilator Mechanical Ventilator 10/04/19 20:00 35 10/04/19 19:30 90 8 100/49 (66) 100 108 10/04/19 19:28 91 18 100 Mechanical Ventilator 35 90 20 35 10/04/19 19:00 19 100/49 Mechanical Ventilator 35 10/04/19 19:00 100/49 10/04/19 19:00 99 20 98/69 (79) 100 108 10/04/19 18:31 119/75 10/04/19 18:31 120 119/75 10/04/19 18:30 108 24 97/58 (71) 100 10/04/19 18:00 111 20 110/71 (84) 100 10/04/19 18:00 20 119/75 Mechanical Ventilator 35 10/04/19 18:00 119/75 10/04/19 17:30 117 21 121/75 (90) 100 10/04/19 17:08 103/48 10/04/19 17:06 24 103/48 Mechanical Ventilator 2.0 35 10/04/19 17:00 120 23 35 10/04/19 17:00 119 23 121/70 (87) 100 10/04/19 16:30 117 24 130/70 (90) 100 10/04/19 16:00 35 10/04/19 16:00 99.5 101 12 120/89 (99) 100 10/04/19 16:00 21 133/74 Mechanical Ventilator 35 10/04/19 16:00 120/89 10/04/19 16:00 Mechanical Ventilator Mechanical Ventilator 10/04/19 16:00 91 10/04/19 15:30 100 17 134/87 (103) 100 10/04/19 15:21 90 24 100 Mechanical Ventilator 35 90 24 35 10/04/19 15:00 12 119/46 Mechanical Ventilator 35 10/04/19 15:00 119/46 10/04/19 15:00 90 8 119/46 (70) 100 10/04/19 14:30 92 18 124/51 (75) 100 10/04/19 14:00 20 121/52 Mechanical Ventilator 35 10/04/19 14:00 121/52 10/04/19 14:00 90 22 121/52 (75) 100 10/04/19 13:30 68 17 109/52 (71) 100 10/04/19 13:00 99.7 68 17 109/50 (69) 100 10/04/19 13:00 103/48 10/04/19 13:00 17 110/52 Mechanical Ventilator 35 10/04/19 13:00 110/52 10/04/19 12:30 68 18 35 10/04/19 12:15 68 18 103/48 (66) 100 68 10/04/19 12:00 68 18 102/48 (66) 100 68 10/04/19 12:00 68 100/50 10/04/19 12:00 18 103/48 Mechanical Ventilator 35 10/04/19 12:00 103/48 10/04/19 12:00 35 10/04/19 12:00 90 10/04/19 12:00 Mechanical Ventilator Mechanical Ventilator 10/04/19 11:15 68 17 100 Mechanical Ventilator 35 69 17 35 Intake and Output 10/04/19 10/05/19 19:00 07:00 Intake Total 694.047 ml 767.953 ml Output Total 3000 ml Balance -2305.953 ml 767.953 ml IV Total 574.047 ml 567.953 ml Other 120 ml 200 ml Output Hemodialysis UF 3000 ml Laboratory Tests 10/04/19 16:10: Troponin I 0.067H 10/05/19 04:27: White Blood Count 15.8H, Red Blood Count 3.96L, Hemoglobin 11.8L, Hematocrit 39.0L, Mean Corpuscular Volume 98, Mean Corpuscular Hemoglobin 29.8, Mean Corpuscular Hemoglobin Concent 30.3L, Red Cell Distribution Width 17.5H, Platelet Count 206, Mean Platelet Volume 6.0L, Neutrophils (%) (Auto) 79.3H, Lymphocytes (%) (Auto) 10.1L, Monocytes (%) (Auto) 9.1, Eosinophils (%) (Auto) 1.1, Basophils (%) (Auto) 0.5, Activated Partial Thromboplast Time 70H, Sodium Level 133L, Potassium Level 3.7, Chloride Level 94L, Carbon Dioxide Level 30, Anion Gap 9, Blood Urea Nitrogen 25H, Creatinine 5.6H, Estimat Glomerular Filtration Rate 12.4, Glucose Level 44L, Calcium Level 7.1L, Total Bilirubin 0.4 , Aspartate Amino Transf (AST/SGOT) 33, Alanine Aminotransferase (ALT/SGPT) 38, Alkaline Phosphatase 353H, Total Protein 7.2, Albumin 2.5L, Globulin 4.7, Albumin/Globulin Ratio 0.5L Height (Feet): 5 Height (Inches): 6.00 Weight (Pounds): 182 General Appearance: other - sedated, vent Cardiovascular: regularly irregular Respiratory/Chest: rhonchi - bilaterally Abdomen: non tender Extremities: moderate edema Neurologic: unresponsive Smith Tidwell MD Oct 05, 2019 11:14
--- NOTE | 2019-10-05 11:36 | Surgery Progress Note ---
Surgery Progress Note Subjective Additional Comments leukocytosis anemia renal input noted on support Objective Last 24 Hour Vital Signs Date Time Temp Pulse Resp B/P (MAP) Pulse Ox O2 Delivery O2 Flow Rate FiO2 10/05/19 11:00 16 99/49 Mechanical Ventilator 35 10/05/19 11:00 99/49 10/05/19 10:53 64 18 100 Mechanical Ventilator 35 66 18 35 10/05/19 10:21 100.9 10/05/19 10:00 18 109/50 Mechanical Ventilator 35 10/05/19 10:00 109/50 10/05/19 10:00 100.9 70 18 104/63 (77) 100 10/05/19 09:30 67 17 92/78 (83) 99 10/05/19 09:28 66 16 35 10/05/19 09:00 18 101/48 Mechanical Ventilator 35 10/05/19 09:00 101/48 10/05/19 09:00 72 19 100/48 (65) 99 10/05/19 08:45 18 100/48 Mechanical Ventilator 35 10/05/19 08:30 18 102/53 Mechanical Ventilator 35 10/05/19 08:30 67 17 100/47 (64) 99 10/05/19 08:17 86/43 10/05/19 08:15 86/43 10/05/19 08:15 65 86/43 10/05/19 08:15 18 100/47 Mechanical Ventilator 35 10/05/19 08:00 19 96/48 Mechanical Ventilator 35 10/05/19 08:00 96/48 10/05/19 08:00 Mechanical Ventilator Mechanical Ventilator 10/05/19 08:00 35 10/05/19 08:00 65 10/05/19 08:00 101.1 65 18 94/48 (63) 99 10/05/19 07:08 65 18 100 Mechanical Ventilator 35 74 16 35 10/05/19 07:03 18 86/43 Mechanical Ventilator 35 10/05/19 07:00 18 89/43 Mechanical Ventilator 35 10/05/19 07:00 89/43 10/05/19 07:00 65 18 89/43 (58) 100 10/05/19 06:58 65 17 86/43 (57) 100 10/05/19 06:45 66 19 88/42 (57) 100 10/05/19 06:30 99.6 85 25 105/66 (79) 92 10/05/19 06:15 81 18 102/54 (70) 91 10/05/19 06:00 18 93/43 Mechanical Ventilator 35 10/05/19 06:00 93/43 10/05/19 06:00 66 18 93/43 (60) 100 10/05/19 05:41 90 105/57 10/05/19 05:30 76 20 105/57 (73) 94 10/05/19 05:08 74 19 35 10/05/19 05:00 16 97/44 Mechanical Ventilator 35 10/05/19 05:00 97/44 10/05/19 05:00 74 16 97/44 (61) 100 10/05/19 04:30 73 15 102/57 (72) 100 10/05/19 04:00 Mechanical Ventilator Mechanical Ventilator 10/05/19 04:00 99.9 68 15 100/65 (77) 100 10/05/19 04:00 15 100/65 Mechanical Ventilator 35 10/05/19 04:00 100/65 10/05/19 04:00 35 10/05/19 03:30 75 16 108/48 (68) 100 10/05/19 03:28 69 10/05/19 03:00 19 108/45 Mechanical Ventilator 35 10/05/19 03:00 108/45 10/05/19 03:00 70 19 108/45 (66) 100 10/05/19 02:30 72 20 102/60 (74) 96 10/05/19 02:20 69 16 100 Mechanical Ventilator 35 68 16 35 10/05/19 02:00 17 102/52 Mechanical Ventilator 35 10/05/19 02:00 102/52 10/05/19 02:00 68 17 102/51 (68) 90 10/05/19 01:30 66 19 96/46 (63) 100 10/05/19 01:00 66 18 110/70 (83) 100 10/05/19 01:00 18 110/70 Mechanical Ventilator 35 10/05/19 01:00 110/70 10/05/19 00:40 89 16 35 10/05/19 00:30 89 21 108/57 (74) 100 10/05/19 00:00 35 10/05/19 00:00 Mechanical Ventilator Mechanical Ventilator 10/05/19 00:00 19 102/51 Mechanical Ventilator 35 10/05/19 00:00 102/51 10/05/19 00:00 98.6 88 19 102/51 (68) 100 10/05/19 00:00 88 10/04/19 23:36 85 108/57 10/04/19 23:31 20 99/45 Mechanical Ventilator 35 10/04/19 23:30 87 21 108/57 (74) 100 10/04/19 23:00 68 16 98/48 (65) 100 10/04/19 23:00 16 98/48 Mechanical Ventilator 35 10/04/19 23:00 98/48 10/04/19 22:46 87 16 100 Mechanical Ventilator 35 80 16 35 10/04/19 22:30 86 17 108/50 (69) 100 10/04/19 22:00 85 14 107/46 (66) 100 10/04/19 22:00 14 107/46 Mechanical Ventilator 35 10/04/19 22:00 107/46 10/04/19 21:30 90 21 112/48 (69) 100 10/04/19 21:00 90 19 120/54 (76) 100 10/04/19 21:00 19 120/54 Mechanical Ventilator 35 10/04/19 21:00 120/54 10/04/19 21:00 85 19 35 10/04/19 20:46 90 101/63 10/04/19 20:30 91 20 101/63 (76) 100 10/04/19 20:15 88 19 110/56 (74) 100 10/04/19 20:09 90 10/04/19 20:00 99.0 91 21 127/101 (110) 100 10/04/19 20:00 21 127/101 Mechanical Ventilator 35 10/04/19 20:00 127/101 10/04/19 20:00 Mechanical Ventilator Mechanical Ventilator 10/04/19 20:00 35 10/04/19 19:30 90 8 100/49 (66) 100 108 10/04/19 19:28 91 18 100 Mechanical Ventilator 35 90 20 35 10/04/19 19:00 19 100/49 Mechanical Ventilator 35 10/04/19 19:00 100/49 10/04/19 19:00 99 20 98/69 (79) 100 108 10/04/19 18:31 119/75 8/15/20 18:31 120 119/75 10/04/19 18:30 108 24 97/58 (71) 100 10/04/19 18:00 111 20 110/71 (84) 100 10/04/19 18:00 20 119/75 Mechanical Ventilator 35 10/04/19 18:00 119/75 10/04/19 17:30 117 21 121/75 (90) 100 10/04/19 17:08 103/48 10/04/19 17:06 24 103/48 Mechanical Ventilator 2.0 35 10/04/19 17:00 120 23 35 10/04/19 17:00 119 23 121/70 (87) 100 10/04/19 16:30 117 24 130/70 (90) 100 10/04/19 16:00 35 10/04/19 16:00 99.5 101 12 120/89 (99) 100 10/04/19 16:00 21 133/74 Mechanical Ventilator 35 10/04/19 16:00 120/89 10/04/19 16:00 Mechanical Ventilator Mechanical Ventilator 10/04/19 16:00 91 10/04/19 15:30 100 17 134/87 (103) 100 10/04/19 15:21 90 24 100 Mechanical Ventilator 35 90 24 35 10/04/19 15:00 12 119/46 Mechanical Ventilator 35 10/04/19 15:00 119/46 10/04/19 15:00 90 8 119/46 (70) 100 10/04/19 14:30 92 18 124/51 (75) 100 10/04/19 14:00 20 121/52 Mechanical Ventilator 35 10/04/19 14:00 121/52 10/04/19 14:00 90 22 121/52 (75) 100 10/04/19 13:30 68 17 109/52 (71) 100 10/04/19 13:00 99.7 68 17 109/50 (69) 100 10/04/19 13:00 103/48 10/04/19 13:00 17 110/52 Mechanical Ventilator 35 10/04/19 13:00 110/52 10/04/19 12:30 68 18 35 10/04/19 12:15 68 18 103/48 (66) 100 68 10/04/19 12:00 68 18 102/48 (66) 100 68 10/04/19 12:00 68 100/50 10/04/19 12:00 18 103/48 Mechanical Ventilator 35 10/04/19 12:00 103/48 10/04/19 12:00 35 10/04/19 12:00 90 10/04/19 12:00 Mechanical Ventilator Mechanical Ventilator I&O Intake and Output 10/04/19 10/05/19 19:00 07:00 Intake Total 694.047 ml 767.953 ml Output Total 3000 ml Balance -2305.953 ml 767.953 ml IV Total 574.047 ml 567.953 ml Other 120 ml 200 ml Output Hemodialysis UF 3000 ml Dressing: saturated Cardiovascular: RSR Respiratory: decreased breath sounds Abdomen: soft, non-tender, present bowel sounds Extremities: edema, no cyanosis Laboratory Tests Test 10/04/19 16:10 10/05/19 04:27 Troponin I 0.067 ng/mL (0.000-0.056) White Blood Count 15.8 K/UL (4.8-10.8) H Red Blood Count 3.96 M/UL (4.70-6.10) L Hemoglobin 11.8 G/DL (14.2-18.0) L Hematocrit 39.0 % (42.0-52.0) L Mean Corpuscular Volume 98 FL (80-99) Mean Corpuscular Hemoglobin 29.8 PG (27.0-31.0) Mean Corpuscular Hemoglobin Concent 30.3 G/DL (32.0-36.0) L Red Cell Distribution Width 17.5 % (11.6-14.8) H Platelet Count 206 K/UL (150-450) Mean Platelet Volume 6.0 FL (6.5-10.1) L Neutrophils (%) (Auto) 79.3 % (45.0-75.0) H Lymphocytes (%) (Auto) 10.1 % (20.0-45.0) L Monocytes (%) (Auto) 9.1 % (1.0-10.0) Eosinophils (%) (Auto) 1.1 % (0.0-3.0) Basophils (%) (Auto) 0.5 % (0.0-2.0) Activated Partial Thromboplast Time 70 SEC (23-33) H Sodium Level 133 MMOL/L (136-145) L Potassium Level 3.7 MMOL/L (3.5-5.1) Chloride Level 94 MMOL/L (98-107) L Carbon Dioxide Level 30 MMOL/L (21-32) Anion Gap 9 mmol/L (5-15) Blood Urea Nitrogen 25 mg/dL (7-18) H Creatinine 5.6 MG/DL (0.55-1.30) H Estimat Glomerular Filtration Rate 12.4 mL/min (>60) Glucose Level 44 MG/DL (74-106) L Calcium Level 7.1 MG/DL (8.5-10.1) L Total Bilirubin 0.4 MG/DL (0.2-1.0) Aspartate Amino Transf (AST/SGOT) 33 U/L (15-37) Alanine Aminotransferase (ALT/SGPT) 38 U/L (12-78) Alkaline Phosphatase 353 U/L (46-116) H Total Protein 7.2 G/DL (6.4-8.2) Albumin 2.5 G/DL (3.4-5.0) L Globulin 4.7 g/dL Albumin/Globulin Ratio 0.5 (1.0-2.7) L Plan Problems: (1) Cardiopulmonary arrest Assessment & Plan: in ICU on support weaning labs noted cont current care Assessment of pt's skin limited as pt is stable at present to be turned in bed. Generalized edemae noted. Shaft of penis is swollen,erythematous and oozing small amt purulent exudate from meatus. At head of Penis is an irregular shaped wound with 100% slough at base of wound(L)3cm x (W)2.5cm. Edges are erythematous with surrounding erythema shaft. Laterally, but in close proximity is small pustule(L)0.5cm x (W)0.4cm.Along foreskin is erythematous and swollen. 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 No surrounding erythema or evidence of further skin breakdown noted. L Lower ext noted to have very snugged sharee wrap which was removed. Xerosis skin with Haemosiderin deposits noted to LLE. LLE washed and moisturized to better assess wounds. Two areas of dry pink epithelial noted to dorsal and lateral L tibia. Linear Dry eschar noted to posterior L Knee (L)1.2cm x (W)9.5cm. No surrounding erythema or induration noted. Full thickness wound L Hallux(L)3cm x (W)2.5cm.Base of wound is 100% yellow slough. Margins are erythematous. Periwound is dark and indurated. Wound is malodorous. No exudate noted. L 5th TMA noted. At distal /lateral L foot is a Full Thickness wound(L)2cm x (W) 2.5cm. Base of wound is 80% mixed slough and eschar,20% carol. Edges are macerated. Small amt seropurulent exudate noted. Wound is malodorous. At Plantar aspect of L foot at 3rd and 4th metatarsal heads is a full thickness wound that is malodorous. (L)1.5cm x (W)1cm. Base of wound is mixed soft necrosis and slough. Small amt seropurulent exudate noted. Periwound skin is callused but no erythema noted. DTPI noted to L heel (L)3.1cm x (W)2cm. Base of injury is purpuric and fluctuant. Surrounding areas of L heel is boggy without erythema. Hyperpigmentation from previous wound noted to medial L malleolus. Will plan to assess Back and sacral area when pt is stable to be turned. Tx.Plan:Cleanse wound Penis with Saline. Apply Nickel thick layer of Santyl with saline moistened 2x2 gauze Daily and prn. Apply Bactroban to wounds on Penis TID as directed by . Cleanse Wounds L Foot with Saline. Apply Nickel Thick layer Santyl. Apply Saline moistened gauze to each wound. Cover with ABD pad. Wrap with Kerlix Daily and prn. Apply Cavilon Skin Barrier to posterior L Knee Daily and prn. Moisturize dry skin LLE daily with each drsg changes. Apply Cavilon Skin Barrier to L Heel daily. Apply Cavilon Skin Barrier to base of R BKA Stump. Cover with ABD Pad. Wrap with Kerlix every 3 days and prn. Apply Moisture Barrier Paste to sacrum. Cover with Optifoam drsg. Change every 3 days and prn. Reposition at least every 2hours or as tolerated. Off-load L Heel with Pillow. Off-load L BKA with Pillow. APM/NATHALY Mattress overlay. (2) Bilateral pleural effusion Assessment & Plan: Interim endotracheal intubation, endotracheal tube tip in good position projecting approximately 7 cm above the ravinder. Interim placement of an orogastric tube, tip of which projects beyond the edge of the image, position therefore indeterminate. Right jugular dialysis catheter is again demonstrated. Large right pleural effusion, mild interstitial edema bilaterally persist. Impression: Satisfactory endotracheal intubation. Patient's nurse notified at the time of interpretation Status post nasogastric intubation, tip below the diaphragm but otherwise position indeterminate. (3) CHF (congestive heart failure) (4) Hypoxia (5) ARF (acute renal failure) (6) Injury of left upper extremity (7) bleeding AV shunt (8) Diabetes (9) Hypertension, benign (10) Anemia in chronic kidney disease (11) Dialysis AV fistula malfunction (12) Abnormal laboratory test result (13) Respiratory distress (14) Hyperglycemia (15) Asthma (16) CHF exacerbation (17) Atrial flutter (18) End-stage renal disease (19) SVT (supraventricular tachycardia) Bolivar Barrios Oct 05, 2019 11:36
--- NOTE | 2019-10-05 11:40 | NUR ---
NURSE NOTES: New Propofol vial was removed from the Pyxis, scanned and witnessed by second nurse, Denise MCLEOD, to replace current bag per 12-hour protocol, which is infusing at 15mcg/kg/min to maintain RASS score -2 light sedation. Old bag including IV tubing were both wasted, total wasted amount=57.568 mL and was witnessed by second RN.
[2019-10-05] MEDS ORDERED: Cefepime HCl 1 GM in D5W 55 ML IVPB SCH (12:00)
--- NOTE | 2019-10-05 12:00 | NUR ---
NURSE NOTES: Pt was seen by Dr. Tidwell. notified regarding hypoglycemia episodes in the last 12 hours post Levemir administration during the test preparer. Order noted for lower Levemir dose now 15units QHS. Order also noted for OGT feeding to start Nepro with goal of 30ml. Blood glucose was reassessed at 1120, resulted 119. Body temp is trending down from 101.1F from this AM, currently 100.3F axillary. Levophed drip has been titrated down to 2mcg/min. Pt is maintained on Propofol 15mcg/kg/min to maintain RASS score of -2 light sedation.
[2019-10-05] MEDS ORDERED: Vancomycin 1gm in D5W 275ml IVPB SCH (12:30)
[2019-10-05] MEDS ORDERED: Vancomycin 1.25gm/NS Premix q24h IVPB SCH (12:30)
--- NOTE | 2019-10-05 14:00 | NUR ---
NURSE NOTES: Pt is maintained on Propofol drip at 15mcg/kg/min to maintain -2 light sedation RASS score. Levophed drip is infusing at 2mcg/min to maintain SBP above 90. Pt was repositioned for comfort. Heparin drip continues at 16units/kg/hr.
--- NOTE | 2019-10-05 14:00 | NUR ---
NURSE NOTES: Propofol drip Rx reached stop date. Dr. Kiser was contacted and order was received to continue Rx. Pharmacy was contacted, spoke with [facility] pharmacist, who renewed Rx per MD order. Rate remains the same at 15mcg/kg/min to maintain RASS score -2 light sedation. Per pharmacist, okay to continue same vial, since it was changed along with tubing at 1140 this morning, next scheduled change of bag/tubing is at 2330 tonight, will endorse to oncoming shift RN.
--- NOTE | 2019-10-05 16:00 | NUR ---
NURSE NOTES: Levophed is stopped now, BP 112/72. Pt remains on Propofol 15mcg/kg/min to maintain RASS score of -2 light sedation. Heparin drip continues at same rate of 16 units/kg/hr per protocol. Next PTT to repeat 0400 in the AM. Temp 99.6F axillary. Pt was repositioned for comfort.
[2019-10-05] MEDS ORDERED: propofoL 1,000mg/100ml 100 ML IV SCH (16:30)
--- NOTE | 2019-10-05 16:30 | NUR ---
NURSE NOTES: Blood glucose via Accucheck resulted 138, Novolog insulin was held per sliding scale order. Pt is now receiving Nepro tube feeding at goal rate of 30ml/hour, with no noted residuals.
--- NOTE | 2019-10-05 18:00 | NUR ---
NURSE NOTES: Pt was cleaned, gown/bed linens were changed. Oral care was done. Pt was repositioned for comfort. VS remain stable. Pt is resting in no apparent distress.
--- NOTE | 2019-10-05 18:33 | NUR ---
NURSE NOTES: New heparin bag was removed from the pyxis to replace the current bag that is now empty. Heparin drip is infusing at 16units/kg/hr per order/protocol. New bag was witnessed by second nurse, Denise MCLEOD.
--- NOTE | 2019-10-05 19:34 | NUR ---
NURSE HAND-OFF REPORT: Latest Vital Signs: Temperature 100.0 , Pulse 110 , B/P 103 /64 , Respiratory Rate 16 , O2 SAT 100 , Mechanical Ventilator, O2 Flow Rate . Vital Sign Comment: BP 114/53, P=109, RR 22, Temp 99.6F axillary, O2Sat 100% while on AC16, VT500, Peep 5, FIO2 35%. PT REMAINS ON PROPOFOL DRIP AT 15MCG/KG/MIN TO MAINTAIN RASS SCORE -2 LIGHT SEDATION, AND HEPARIN DRIP 16UNITS/KG/HR. LEVOPHED IS ON HOLD SINCE 1600. TUBE FEEDING HAS BEEN STARTED PER KIARRA WATSON'S ORDER, NEPRO INFUSING AT GOAL RATE OF 30ML/HOUR WITH NO RESIDUAL. EKG Rhythm: Atrial Fibrillation Rhythm change?: Shawn NASCIMENTO Notified?: Shawn Funk MD Response: Latest Roman Fall Score: 70 Fall Risk: High Risk Safety Measures: Call light Within Reach, Bed Alarm Zone 1, Side Rails Side Rails x3, Bed position Low and Locked. Fall Precautions: Yellow Socks Door Sign Patient Fall Education Report given to Jorge MCLEOD. ENDORSED PLAN OF CARE.
[2019-10-05] MEDS: Dyna-Hex 2% Top Sol 2oz TOPIC SCH (19:39)
--- NOTE | 2019-10-05 19:55 | NUR ---
NURSE NOTES: ATIENT SEDATED, RESPIRATION REGULAR ON ETT TO VENT AC 16/TV 500/FIO2 35%/PEEP 5, O2 SATURATION 100%, HR 100'S/MIN A-FIB STATUS, OGT INTACT AND PATENT, NO N/V NOTED, ONGOING NEPRO AT 30ML/HR VIA OGT, RESIDUE 30ML NOTED, KEPT HOB 30 DEGREES AND ASPIRATION PRECAUTION, ABDOMEN SOFT, NON TENDER, ANURIC STATUS, AV SHUNT TO LEFT UPPER ARM, NO BLEEDING STATUS, KEPT LEFT ARM PRECAUTION, RIGHT BKA STATUS, PERMA CATH TO RIGHT CHEST, TLC TO RIGHT FEMORAL, INTACT AND PATENT, ONGOING PROPOFOL 15MCG/KG/MIN AND HEPARIN 16 UNIT/KG/HR VIA TLC, KEPT RASS SCORE -2, 2 POINT SOFT RESTRAINTS STATUS, MADE LOWER BED POSITION, ON P200 BED, BED ALARM AND LOCKED, PLACED CALL LIGHT WITHIN REACH, WILL CONTINUE TO MONITOR.
--- NOTE | 2019-10-05 20:18 | NUR ---
NURSE NOTES: le; SEEN THE PATIENT DR. TOWNSEND.
[2019-10-05] MEDS: Atorvastatin 20mg tab ORAL SCH (20:45)
[2019-10-05] MEDS ORDERED: Levemir Flexpen SUBQ SCH (21:00)
--- NOTE | 2019-10-05 22:10 | NUR ---
NURSE NOTES: PATIENT CALM, ASLEEP STATUS, NO RESISTANCE TO CARE STATUS, DISCONTINUED RESTRAINTS, WILL CONTINUE TO MONITOR.
[2019-10-06] VITALS (75 sets, daily range): BP systolic 59–132; BP diastolic 35–86
--- NOTE | 2019-10-06 00:10 | NUR ---
NURSE NOTES: PATIENT SEDATED, RASS SCORE -2 ON PROPOFOL DRIP 20MCG/KG/MIN VIA RIGHT FEMORAL TLC, WILL CONTINUE TO MONITOR.
--- NOTE | 2019-10-06 00:56 | Cardiology Progress Note ---
Subjective DATE OF SERVICE: Oct 05, 2019 Remains in ICU Condition Critical and prognosis guarded. Crit care time 48mins On tapering doses of pressors Monitor: AFib with NSVTach Orally intubated and mechanically ventilated Objective Last 24 Hour Vital Signs Date Time Temp Pulse Resp B/P (MAP) Pulse Ox O2 Delivery O2 Flow Rate FiO2 10/06/19 00:15 101 18 109/57 (74) 100 10/06/19 00:00 99.1 99 19 103/74 (84) 100 10/06/19 00:00 107 103/74 10/06/19 00:00 Mechanical Ventilator Mechanical Ventilator 10/06/19 00:00 99 10/05/19 23:30 102 18 94/62 (73) 100 10/05/19 23:00 121 21 107/64 (78) 100 10/05/19 23:00 21 107/64 Mechanical Ventilator 35 10/05/19 22:55 99 27 100 Mechanical Ventilator 35 110 18 35 10/05/19 22:30 102 20 99/51 (67) 100 10/05/19 22:01 21 103/61 Mechanical Ventilator 35 10/05/19 22:00 21 100/52 Mechanical Ventilator 35 10/05/19 22:00 104 21 100/52 (68) 100 10/05/19 21:45 114 18 103/61 (75) 100 10/05/19 21:30 110 23 106/58 (74) 100 10/05/19 21:15 109 19 103/65 (78) 100 10/05/19 21:13 108 19 Mechanical Ventilator 35 10/05/19 21:00 115 20 113/55 (74) 100 10/05/19 21:00 20 113/55 Mechanical Ventilator 35 10/05/19 20:45 105 18 97/61 (73) 100 10/05/19 20:45 18 97/61 Mechanical Ventilator 35 10/05/19 20:45 108 104/62 10/05/19 20:30 102 18 104/62 (76) 100 10/05/19 20:30 18 104/62 Mechanical Ventilator 35 10/05/19 20:15 103 18 95/54 (68) 100 10/05/19 20:15 18 95/54 Mechanical Ventilator 35 10/05/19 20:00 98.6 105 22 90/36 (54) 100 10/05/19 20:00 Mechanical Ventilator Mechanical Ventilator 10/05/19 20:00 22 90/36 Mechanical Ventilator 35 10/05/19 20:00 35 10/05/19 19:31 109 10/05/19 19:30 114 16 114/53 (73) 100 10/05/19 19:20 110 16 100 Mechanical Ventilator 35 112 16 35 10/05/19 19:00 113 20 115/56 (75) 100 10/05/19 19:00 22 103/64 Mechanical Ventilator 35 10/05/19 18:30 127 22 116/60 (78) 100 10/05/19 18:00 86 18 93/49 (64) 100 10/05/19 18:00 19 103/50 Mechanical Ventilator 35 10/05/19 17:30 88 18 94/50 (65) 100 10/05/19 17:15 84 16 35 10/05/19 17:11 100/64 10/05/19 17:10 60 100/64 10/05/19 17:00 96 21 101/48 (65) 100 10/05/19 17:00 17 96/48 Mechanical Ventilator 35 10/05/19 17:00 90 10/05/19 16:00 Mechanical Ventilator Mechanical Ventilator 10/05/19 16:00 88 10/05/19 16:00 96 18 107/61 (76) 100 10/05/19 16:00 35 10/05/19 16:00 20 103/64 Mechanical Ventilator 35 10/05/19 16:00 103/64 10/05/19 15:00 86 20 110/67 (81) 100 10/05/19 15:00 20 110/67 Mechanical Ventilator 35 10/05/19 15:00 110/67 10/05/19 14:41 63 18 100 Mechanical Ventilator 35 76 18 35 10/05/19 14:30 84 16 113/47 (69) 100 10/05/19 14:00 77 16 109/57 (74) 100 10/05/19 14:00 18 103/64 Mechanical Ventilator 2.0 35 10/05/19 14:00 16 109/57 Mechanical Ventilator 35 10/05/19 14:00 109/57 10/05/19 13:30 67 16 97/52 (67) 100 10/05/19 13:09 66 16 35 10/05/19 13:00 100.0 65 17 97/49 (65) 100 8/16/20 13:00 16 95/47 Mechanical Ventilator 35 10/05/19 13:00 95/47 10/05/19 12:00 Mechanical Ventilator Mechanical Ventilator 10/05/19 12:00 16 99/51 Mechanical Ventilator 35 10/05/19 12:00 99/51 10/05/19 12:00 64 10/05/19 12:00 35 10/05/19 12:00 100.6 64 16 102/52 (69) 100 10/05/19 11:56 99/49 10/05/19 11:56 64 99/49 10/05/19 11:40 16 99/49 Mechanical Ventilator 2.0 35 10/05/19 11:30 65 16 97/53 (68) 100 10/05/19 11:30 12 101/49 35 10/05/19 11:00 65 16 99/49 (66) 100 10/05/19 11:00 16 99/49 Mechanical Ventilator 35 10/05/19 11:00 99/49 10/05/19 10:53 64 18 100 Mechanical Ventilator 35 66 18 35 10/05/19 10:21 100.9 10/05/19 10:00 18 109/50 Mechanical Ventilator 35 10/05/19 10:00 109/50 10/05/19 10:00 100.9 70 18 104/63 (77) 100 10/05/19 09:30 67 17 92/78 (83) 99 10/05/19 09:28 66 16 35 10/05/19 09:00 18 101/48 Mechanical Ventilator 35 10/05/19 09:00 101/48 10/05/19 09:00 72 19 100/48 (65) 99 10/05/19 08:45 18 100/48 Mechanical Ventilator 35 10/05/19 08:30 18 102/53 Mechanical Ventilator 35 10/05/19 08:30 67 17 100/47 (64) 99 10/05/19 08:17 86/43 10/05/19 08:15 86/43 10/05/19 08:15 65 86/43 10/05/19 08:15 18 100/47 Mechanical Ventilator 35 10/05/19 08:00 19 96/48 Mechanical Ventilator 35 10/05/19 08:00 96/48 10/05/19 08:00 Mechanical Ventilator Mechanical Ventilator 10/05/19 08:00 35 10/05/19 08:00 65 10/05/19 08:00 101.1 65 18 94/48 (63) 99 10/05/19 07:08 65 18 100 Mechanical Ventilator 35 74 16 35 10/05/19 07:03 18 86/43 Mechanical Ventilator 35 10/05/19 07:00 18 89/43 Mechanical Ventilator 35 10/05/19 07:00 89/43 10/05/19 07:00 65 18 89/43 (58) 100 10/05/19 06:58 65 17 86/43 (57) 100 10/05/19 06:45 66 19 88/42 (57) 100 10/05/19 06:30 99.6 85 25 105/66 (79) 92 10/05/19 06:15 81 18 102/54 (70) 91 10/05/19 06:00 18 93/43 Mechanical Ventilator 35 10/05/19 06:00 93/43 10/05/19 06:00 66 18 93/43 (60) 100 10/05/19 05:41 90 105/57 10/05/19 05:30 76 20 105/57 (73) 94 10/05/19 05:08 74 19 35 10/05/19 05:00 16 97/44 Mechanical Ventilator 35 10/05/19 05:00 97/44 10/05/19 05:00 74 16 97/44 (61) 100 10/05/19 04:30 73 15 102/57 (72) 100 10/05/19 04:00 Mechanical Ventilator Mechanical Ventilator 10/05/19 04:00 99.9 68 15 100/65 (77) 100 10/05/19 04:00 15 100/65 Mechanical Ventilator 35 10/05/19 04:00 100/65 10/05/19 04:00 35 10/05/19 03:30 75 16 108/48 (68) 100 10/05/19 03:28 69 10/05/19 03:00 19 108/45 Mechanical Ventilator 35 10/05/19 03:00 108/45 10/05/19 03:00 70 19 108/45 (66) 100 10/05/19 02:30 72 20 102/60 (74) 96 10/05/19 02:20 69 16 100 Mechanical Ventilator 35 68 16 35 10/05/19 02:00 17 102/52 Mechanical Ventilator 35 10/05/19 02:00 102/52 10/05/19 02:00 68 17 102/51 (68) 90 10/05/19 01:30 66 19 96/46 (63) 100 10/05/19 01:00 66 18 110/70 (83) 100 10/05/19 01:00 18 110/70 Mechanical Ventilator 35 10/05/19 01:00 110/70 ROS: No change from my assessment on 10/04/19 HEENT: Orally intubated, Mechanically Ventilated, Thin secretions ET Tube RHYTHM: PVCs, Afib LUNGS: bilateral rhonchi, other - permcath right chest wall CARDIAC: irregularly irregular ABDOMEN: normal bowel sounds, non tender, soft EXTREMITIES: trace edema, other - Right BK amputation. multiple ulcers/wounds Laboratory Tests Test 10/05/19 04:27 10/05/19 05:28 10/05/19 05:29 10/05/19 05:44 White Blood Count 15.8 K/UL (4.8-10.8) H Red Blood Count 3.96 M/UL (4.70-6.10) L Hemoglobin 11.8 G/DL (14.2-18.0) L Hematocrit 39.0 % (42.0-52.0) L Mean Corpuscular Volume 98 FL (80-99) Mean Corpuscular Hemoglobin 29.8 PG (27.0-31.0) Mean Corpuscular Hemoglobin Concent 30.3 G/DL (32.0-36.0) L Red Cell Distribution Width 17.5 % (11.6-14.8) H Platelet Count 206 K/UL (150-450) Mean Platelet Volume 6.0 FL (6.5-10.1) L Neutrophils (%) (Auto) 79.3 % (45.0-75.0) H Lymphocytes (%) (Auto) 10.1 % (20.0-45.0) L Monocytes (%) (Auto) 9.1 % (1.0-10.0) Eosinophils (%) (Auto) 1.1 % (0.0-3.0) Basophils (%) (Auto) 0.5 % (0.0-2.0) Activated Partial Thromboplast Time 70 SEC (23-33) H Sodium Level 133 MMOL/L (136-145) L Potassium Level 3.7 MMOL/L (3.5-5.1) Chloride Level 94 MMOL/L (98-107) L Carbon Dioxide Level 30 MMOL/L (21-32) Anion Gap 9 mmol/L (5-15) Blood Urea Nitrogen 25 mg/dL (7-18) H Creatinine 5.6 MG/DL (0.55-1.30) H Estimat Glomerular Filtration Rate 12.4 mL/min (>60) Glucose Level 44 MG/DL (74-106) L Calcium Level 7.1 MG/DL (8.5-10.1) L Total Bilirubin 0.4 MG/DL (0.2-1.0) Aspartate Amino Transf (AST/SGOT) 33 U/L (15-37) Alanine Aminotransferase (ALT/SGPT) 38 U/L (12-78) Alkaline Phosphatase 353 U/L (46-116) H Total Protein 7.2 G/DL (6.4-8.2) Albumin 2.5 G/DL (3.4-5.0) L Globulin 4.7 g/dL Albumin/Globulin Ratio 0.5 (1.0-2.7) L POC Whole Blood Glucose 34 MG/DL (74-106) *L Pending 105 MG/DL (74-106) Assessment/Plan Assessment/Plan Cardiopulmonary arrest Respiratory failure Sepsis with shock ESRD with Permcath Paroxysmal AFib/flutter Ischemic cardiomyopathy - hx CABG Cardiogenic shock PAD - s/p Right BKA IRDM Taper off pressors Antimicrobials Vent support Titrate anti-anginal regimen once off pressors Eloy Ruby MD Oct 06, 2019 00:56
--- NOTE | 2019-10-06 02:20 | NUR ---
NURSE NOTES: PATIENT TRIED TO TOUCH LINE, APPLIED 2 POINT SOFT RESTRAINTS ORDERED, WILL CONTINUE TO MONITOR.
[2019-10-06] MEDS: Ipratropium 0.02% Inh Soln 2.5ml UD HHN SCH ×6 (02:59→23:14)
--- NOTE | 2019-10-06 04:15 | Consultation ---
DATE OF CONSULTATION: 10/04/2019 CARDIOLOGY CONSULT CONSULTING PHYSICIAN: Eloy Ruby M.D. REASON FOR CONSULTATION: Critical care management of shock in the setting of ischemic cardiomyopathy following cardiopulmonary arrest. HISTORY OF PRESENT ILLNESS: This 69-year-old male, with recent CABG and right BKA, presented to the hospital with shortness of breath after missing a dialysis session. Subsequently, due to hypoxia, he had a bradycardic asystolic arrest. CPR was performed. The patient has remained intubated and mechanically ventilated, now on pressor support. PAST MEDICAL HISTORY: Peripheral artery disease, right BKA, coronary artery disease, status post CABG, end-stage renal disease with PermCath for hemodialysis, insulin-requiring diabetes mellitus, asthma, and hypertension. ALLERGIES: No medication allergies. FAMILY HISTORY: Not remarkable. SOCIAL HISTORY: No record of smoking, alcohol, or substance abuse. REVIEW OF SYSTEMS: Not obtainable. MAR reviewed. PHYSICAL EXAMINATION: VITAL SIGNS: Temperature 100, blood pressure 99/48, heart rate 69, and respiratory rate 19. Orally intubated. Mechanically ventilated. LUNGS: Bilateral rhonchi. CARDIAC: Irregularly irregular rhythm. Normal S1, S2. No murmur appreciated. ABDOMEN: Soft. EXTREMITIES: Trace edema. Right BKA. Left foot with toe amputation, multiple ulcers. LABORATORY DATA: White count 12.2 and hemoglobin 10.9. Sodium 137, potassium 3.5, bicarb 27, BUN 35, and creatinine 7. Troponin 0.067. IMPRESSION: 1. Status post cardiopulmonary arrest. 2. Shock. 3. Probable sepsis. 4. Cardiogenic insufficiency. 5. Right BKA. 6. Peripheral artery disease. 7. Respiratory failure. 8. End-stage renal disease. 9. Insulin-requiring diabetes with labile glucose. 10. Condition, critical. 11. Prognosis, guarded. 12. Acute myocardial ischemia and possible [id number] myocardial infarction. PLAN: 1. Ventilator support. 2. Hold beta-blockers. 3. Empiric antimicrobials. 4. Pressor support with rapid taper as able. 5. Diltiazem for rate control. 6. Avoid beta-blockers due to bronchospastic lung disease. 7. Hemodialysis with ultrafiltration for volume management. 8. Titrate insulin dosing. Eloy Ruby M.D. DR: PEGGY JOB#: [id number] CC:
[2019-10-06 04:36] LABS: HEMATOCRIT 33.2 % (42.0-52.0); HEMOGLOBIN 10.3 G/DL (14.2-18.0); MEAN CORPUSCULAR VOLUME 98 FL (80-99); PLATELET COUNT 164 K/UL (150-450); WHITE BLOOD COUNT 17.1 K/UL (4.8-10.8)
--- NOTE | 2019-10-06 04:51 | NUR ---
NURSE NOTES: PTT RESULT PENDING STATUS.
--- NOTE | 2019-10-06 05:20 | NUR ---
NURSE NOTES: MORNING CARE WAS DONE.
[2019-10-06] MEDS: propofoL 1,000mg/100ml 100 ML IV SCH ×3 (05:40→18:40)
[2019-10-06] MEDS: dilTIAZem HCl 90mg tab ORAL SCH ×5 (05:40→23:36)
[2019-10-06] MEDS: NovoLOG Insulin Flexpen SUBQ SCH ×4 (05:42→20:14)
[2019-10-06 05:53] LABS: ALANINE AMINOTRANSFERASE 22 U/L (12-78); ALBUMIN 2.2 G/DL (3.4-5.0); ALBUMIN/GLOBULIN RATIO 0.5 (1.0-2.7); ALKALINE PHOSPHATASE 290 U/L (46-116); ANION GAP 18 mmol/L (5-15); ASPARTATE AMINO TRANSFERASE 21 U/L (15-37); BILIRUBIN,TOTAL 0.4 MG/DL (0.2-1.0); BLOOD UREA NITROGEN 32 mg/dL (7-18); CALCIUM 6.6 MG/DL (8.5-10.1); CARBON DIOXIDE 22 MMOL/L (21-32); CHLORIDE 87 MMOL/L (98-107); CREATININE 6.9 MG/DL (0.55-1.30); POTASSIUM 3.9 MMOL/L (3.5-5.1); SODIUM 127 MMOL/L (136-145)
--- NOTE | 2019-10-06 06:01 | NUR ---
NURSE NOTES: PT'S (TULIO }VISITED AND SIGNED FOR RELEASED PHI AND IV CONTRAST THAT WAS AWARE.
--- NOTE | 2019-10-06 06:38 | NUR ---
NURSE NOTES: PATIENT SEDATED ON PROPOFOL 30MCG/KG/MIN AT THIS TIME.
--- NOTE | 2019-10-06 07:30 | NUR ---
NURSE NOTES: Patient and report received from SHANI Patel. Pt is currently sedated RASS score -2 light sedation while on Propofol drip infusing at 30mcg/kg/min. Pt on a Heparin drip infusing at 16units/kg/hr, last PTT 67. Pt is orally intubated, ETT 7.5 at 22cm @ the lipline with vent settings AC16, VT500, Peep 5, FIO2 60%, O2Sat currently 98%. Pt in Afib on laboratory monitor, HR 95. OGT is present, feeds held at this time for weaning. Pt is anuric. Left UA AV shunt is present, bruit/thrill present; however site not being used for dialysis and instead using Right subclavian permacath, dressing dry/intact. Right femoral TLC, patent/intact and connected to IV drips. Right BKA stump and Left foot covered with gauze/dressing. Pt is on pressure release mattress. HOB at 30 degrees, bed locked, three side rails up. Pt also has bilateral soft wrist restraints despite being on Propofol due to pt reaching for ET tube, to prevent self-extubation. Will continue to monitor pt and follow with plan of care per MD orders and protocol.
--- NOTE | 2019-10-06 07:35 | NUR ---
NURSE HAND-OFF REPORT: Latest Vital Signs: Temperature 99.6 , Pulse 105 , B/P 93 /65 , Respiratory Rate 19 , O2 SAT 96 , Mechanical Ventilator, O2 Flow Rate . Vital Sign Comment: EKG Rhythm: Atrial Fibrillation Rhythm change?: N Notified?: Shawn Funk MD Response: Latest Roman Fall Score: 70 Fall Risk: High Risk Safety Measures: Call light Within Reach, Bed Alarm Zone 1, Side Rails Side Rails x3, Bed position Low and Locked. Fall Precautions: Yellow Socks Door Sign Patient Fall Education Report given to SHANI HERNANDEZ
[2019-10-06] MEDS: Losartan 50mg tab ORAL SCH (09:00)
[2019-10-06] MEDS: Carvedilol 12.5mg tab ORAL SCH ×2 (09:00→20:12)
--- NOTE | 2019-10-06 09:15 | NUR ---
NURSE NOTES: All 9AM B/P meds held d/t pt's B/P being low (in the 80's). Also pt is scheduled to have dialysis this AM.
--- NOTE | 2019-10-06 09:15 | NUR ---
RADIOLOGY DEPT., LEFT TIB/FIB AND FOOT IMAGED.-PKULWANT
[2019-10-06] MEDS: Renvela 800mg Pkt ORAL SCH ×2 (09:41→12:02)
[2019-10-06] MEDS: Aspirin Baby 81mg ORAL SCH (09:41)
[2019-10-06] MEDS: Qvar 40mcg Inhaler 6.8 gm INH SCH ×2 (10:00→20:15)
--- NOTE | 2019-10-06 10:19 | Diagnostic Imaging Report ---
Indication: Leg pain, ulcers Technique: 2 views of the left tibia and fibula Comparison: none Findings: There is an old healed fracture deformity of the midshaft fibula. No definite osteolytic lesions, osseous erosions, or unusual periosteal reaction demonstrated. There are vascular calcifications. Impression: No acute process Note, however, limited sensitivity of plain radiographs for osteomyelitis. If there is high clinical suspicion, bone scan or MRI should be considered for more sensitive characterization
--- NOTE | 2019-10-06 10:41 | Diagnostic Imaging Report ---
Indication: Foot pain, ulcers Technique: 2 views of the left foot Comparison: none Findings: Exam is somewhat limited due to the availability of only 2 views. The fourth digit has been amputated at the level of the midshaft metatarsal. There is medial subluxation of the first metatarsophalangeal joint, as well as degenerative changes of the first metatarsophalangeal joint. There is what appears to be an old healed fracture deformity of the first proximal phalanx. There is slight subluxation of the first interphalangeal joint. There is suggestion of erosive changes of the medial metatarsal head. There is medial subluxation of the second metatarsophalangeal joint. There is marked irregularity of the base of the a second proximal phalanx. There is marked irregularity and possibly old fracture deformity of the metatarsal head. There is absence of the third metatarsal head and neck. Uncertain as whether this is postsurgical or due to degenerative arthropathy, although suspect the former as the margin appears fairly clean and corticated. There is hammertoe deformity of the third digit. There is absence of the fifth metatarsal head and neck. While possibly postsurgical, this appears somewhat irregular and there are a few small distal fragments. The fifth proximal phalanx is dislocated medially. There is evidence of erosions of the medial and lateral base of the fifth proximal phalanx. There are degenerative changes of the midfoot. There are extensive vascular calcifications Impression: Absence of the metatarsal head and neck and some fragmentation of the distal stump. Uncertain as whether this represents postsurgical change or acquired bone loss. Erosions of the base of the fifth proximal phalanx are suspicious for acute osteomyelitis. There is also chronic appearing dislocation of the fifth metatarsophalangeal joint. Erosive changes of the medial first metatarsal head. Could indicate osteomyelitis, versus findings related to arthropathy. Other extensive degenerative, destructive, and postsurgical changes as detailed above. Findings may be in part due to Charcot type arthropathy Findings discussed by phone with Dr. Tidwell at the time of interpretation
[2019-10-06] MEDS ORDERED: Heparin Sod 1000 units/ml 10ml IV SCH (11:30)
--- NOTE | 2019-10-06 11:30 | NUR ---
NURSE NOTES: Dialysis nurse, Jordan, at bedside. Advised her to use Rt Subclavian permacath, d/t bleeding at Left AV shunt during previous dialysis session. However, was told permacath is an old site and pt is at higher risk of infection if used.
--- NOTE | 2019-10-06 11:47 | NUR ---
Social Work This SW followed up with patient who is currently a patient in the ICU. Chart reviewed; patient is currently intubated/sedated, while this SW contacted spouse, Isela Pina @ [phone] who explains patient is from home, was A/O x4, independent with all ADLS, ambulation (with prothesis), while she has been assisting with bathing and transportation to/from the dialysis ([facility] [address] at 3:45 PM, [place]). Patient does not have a history of mental health or substance abuse, according to spouse. Spouse expressed concerns with transportation to dialysis, stating insurance application investigator assisting with access services. Patient lives with spouse and grandson (age 23) who can assist after discharge to home. Spouse works during the day, while grandson is with patient, as needed. Pending progress at this time. Patient does not have an Advanced Directive, while spouse is requesting full code, full treatment. Copy of POLST and AD provided to spouse.
[2019-10-06] MEDS: Heparin 25,000u/D5W 500ml 500 ML IV SCH (12:05)
--- NOTE | 2019-10-06 12:43 | NUR ---
NURSE NOTES: Pt receiving dialysis. Tolerating well. youth support worker gave pt Albumin 25% to maintain B/P. Will continue to monitor.
[2019-10-06] MEDS ORDERED: ASPIR 8181 MG ORAL (13:00)
[2019-10-06] MEDS ORDERED: LANTUS SOL100 UNIT/1 SUBQ (13:00)
--- NOTE | 2019-10-06 14:00 | NUR ---
NURSE NOTES: Pt remains on Propofol @ 25mcg/kg/min and Heparin 16units/hr via Rt femoral TLC. No distress noted at this time. Pt still receiving dialysis; plan is to pull out 2.5L.
[2019-10-06] MEDS: Cefepime HCl 500 MG in D5W 55 ML IV SCH (14:50)
--- NOTE | 2019-10-06 14:56 | Surgery Progress Note ---
Surgery Progress Note Subjective Additional Comments ill appearing on support no n/v/ Objective Last 24 Hour Vital Signs Date Time Temp Pulse Resp B/P (MAP) Pulse Ox O2 Delivery O2 Flow Rate FiO2 10/06/19 14:00 112/72 10/06/19 14:00 101 20 109/63 (78) 97 10/06/19 13:49 100 24 35 10/06/19 13:30 105 19 104/68 (80) 100 10/06/19 13:02 17 110/63 Mechanical Ventilator 60 10/06/19 13:00 103 16 110/62 (78) 100 10/06/19 13:00 16 110/62 Mechanical Ventilator 100 10/06/19 12:30 107 18 112/63 (79) 99 10/06/19 12:06 100/60 10/06/19 12:00 Mechanical Ventilator Mechanical Ventilator 10/06/19 12:00 126 10/06/19 12:00 16 100/64 Mechanical Ventilator 60 10/06/19 12:00 126 100/60 10/06/19 12:00 98.9 126 18 98/61 (73) 100 10/06/19 12:00 60 10/06/19 11:30 127 17 104/63 (77) 100 10/06/19 11:00 16 110/59 Mechanical Ventilator 60 10/06/19 11:00 126 19 110/59 (76) 100 10/06/19 10:55 126 25 99 Mechanical Ventilator 35 127 27 35 10/06/19 10:30 114 21 105/64 (78) 98 10/06/19 10:15 99 19 101/79 (86) 97 10/06/19 10:00 16 101/79 Mechanical Ventilator 60 10/06/19 10:00 105 20 98/62 (74) 91 10/06/19 09:45 93 19 83/56 (65) 97 93 10/06/19 09:30 93 19 85/57 (66) 97 93 10/06/19 09:02 93 20 35 10/06/19 09:00 60 10/06/19 09:00 16 91/59 Mechanical Ventilator 60 10/06/19 09:00 85/57 10/06/19 09:00 85/57 10/06/19 09:00 95 85/57 10/06/19 09:00 94 20 88/62 (71) 99 94 10/06/19 08:30 92 18 84/51 (62) 99 92 10/06/19 08:00 95 10/06/19 08:00 100.0 95 19 92/44 (60) 99 95 10/06/19 08:00 16 88/49 Mechanical Ventilator 60 10/06/19 08:00 Mechanical Ventilator Mechanical Ventilator 10/06/19 07:30 95 22 81/57 (65) 97 95 10/06/19 07:01 105 19 99 Mechanical Ventilator 35 102 21 35 10/06/19 07:00 21 93/65 Mechanical Ventilator 60 10/06/19 07:00 96 21 93/65 (74) 96 10/06/19 06:45 108 23 86/49 (61) 95 10/06/19 06:30 112 22 105/55 (72) 94 10/06/19 06:29 110 21 93/55 (68) 94 10/06/19 06:15 124 20 84/70 (75) 94 10/06/19 06:00 24 95/52 Mechanical Ventilator 60 10/06/19 06:00 126 24 95/52 (66) 93 10/06/19 05:45 127 25 98/57 (71) 94 10/06/19 05:40 23 103/53 Mechanical Ventilator 60 10/06/19 05:40 127 103/53 10/06/19 05:30 127 25 103/53 (70) 94 10/06/19 05:15 128 21 94/53 (67) 92 10/06/19 05:10 127 21 35 10/06/19 05:00 26 113/67 Mechanical Ventilator 50 10/06/19 05:00 127 26 113/67 (82) 90 10/06/19 04:45 128 19 99/53 (68) 100 10/06/19 04:45 19 99/53 Mechanical Ventilator 50 10/06/19 04:30 128 25 112/59 (76) 99 10/06/19 04:30 25 112/59 Mechanical Ventilator 50 10/06/19 04:15 128 21 95/52 (66) 100 10/06/19 04:15 21 95/52 Mechanical Ventilator 50 10/06/19 04:00 Mechanical Ventilator Mechanical Ventilator 10/06/19 04:00 50 10/06/19 04:00 22 99/55 Mechanical Ventilator 35 10/06/19 04:00 99.6 128 22 99/54 (69) 100 10/06/19 04:00 128 10/06/19 03:45 128 22 108/55 (72) 100 10/06/19 03:30 129 22 102/58 (73) 100 10/06/19 03:15 129 22 113/59 (77) 100 10/06/19 03:15 22 113/59 Mechanical Ventilator 35 10/06/19 03:00 129 23 100 Mechanical Ventilator 35 128 20 35 10/06/19 03:00 23 121/58 Mechanical Ventilator 35 10/06/19 03:00 130 23 121/58 (79) 100 10/06/19 02:45 128 24 121/68 (85) 100 10/06/19 02:45 24 121/68 Mechanical Ventilator 35 10/06/19 02:30 128 22 108/65 (79) 100 10/06/19 02:30 22 108/65 Mechanical Ventilator 35 10/06/19 02:00 128 18 114/59 (77) 100 10/06/19 02:00 18 114/59 Mechanical Ventilator 35 10/06/19 01:45 128 18 107/65 (79) 100 10/06/19 01:30 128 18 117/59 (78) 100 10/06/19 01:00 20 115/63 Mechanical Ventilator 35 10/06/19 01:00 128 20 115/63 (80) 100 10/06/19 00:37 128 19 35 10/06/19 00:30 128 21 117/68 (84) 100 10/06/19 00:15 101 18 109/57 (74) 100 10/06/19 00:00 35 10/06/19 00:00 99.1 99 19 103/74 (84) 100 10/06/19 00:00 19 103/74 Mechanical Ventilator 35 10/06/19 00:00 107 103/74 10/06/19 00:00 Mechanical Ventilator Mechanical Ventilator 10/06/19 00:00 99 10/05/19 23:30 102 18 94/62 (73) 100 10/05/19 23:00 121 21 107/64 (78) 100 10/05/19 23:00 21 107/64 Mechanical Ventilator 35 10/05/19 22:55 99 27 100 Mechanical Ventilator 35 110 18 35 10/05/19 22:30 102 20 99/51 (67) 100 10/05/19 22:01 21 103/61 Mechanical Ventilator 35 10/05/19 22:00 21 100/52 Mechanical Ventilator 35 10/05/19 22:00 104 21 100/52 (68) 100 10/05/19 21:45 114 18 103/61 (75) 100 10/05/19 21:30 110 23 106/58 (74) 100 10/05/19 21:15 109 19 103/65 (78) 100 10/05/19 21:13 108 19 Mechanical Ventilator 35 10/05/19 21:00 115 20 113/55 (74) 100 10/05/19 21:00 20 113/55 Mechanical Ventilator 35 10/05/19 20:45 105 18 97/61 (73) 100 10/05/19 20:45 18 97/61 Mechanical Ventilator 35 10/05/19 20:45 108 104/62 10/05/19 20:30 102 18 104/62 (76) 100 10/05/19 20:30 18 104/62 Mechanical Ventilator 35 10/05/19 20:15 103 18 95/54 (68) 100 10/05/19 20:15 18 95/54 Mechanical Ventilator 35 10/05/19 20:00 98.6 105 22 90/36 (54) 100 10/05/19 20:00 Mechanical Ventilator Mechanical Ventilator 10/05/19 20:00 22 90/36 Mechanical Ventilator 35 10/05/19 20:00 35 10/05/19 19:31 109 10/05/19 19:30 114 16 114/53 (73) 100 10/05/19 19:20 110 16 100 Mechanical Ventilator 35 112 16 35 10/05/19 19:00 113 20 115/56 (75) 100 20 19:00 22 103/64 Mechanical Ventilator 35 10/05/19 18:30 127 22 116/60 (78) 100 10/05/19 18:00 86 18 93/49 (64) 100 10/05/19 18:00 19 103/50 Mechanical Ventilator 35 10/05/19 17:30 88 18 94/50 (65) 100 10/05/19 17:15 84 16 35 10/05/19 17:11 100/64 10/05/19 17:10 60 100/64 10/05/19 17:00 96 21 101/48 (65) 100 8/16/20 17:00 17 96/48 Mechanical Ventilator 35 10/05/19 17:00 90 10/05/19 16:00 Mechanical Ventilator Mechanical Ventilator 10/05/19 16:00 88 10/05/19 16:00 96 18 107/61 (76) 100 10/05/19 16:00 35 10/05/19 16:00 20 103/64 Mechanical Ventilator 35 10/05/19 16:00 103/64 10/05/19 15:00 86 20 110/67 (81) 100 10/05/19 15:00 20 110/67 Mechanical Ventilator 35 10/05/19 15:00 110/67 I&O Intake and Output 10/05/19 10/06/19 19:00 07:00 Intake Total 1281.249 ml 899.469 ml Balance 1281.249 ml 899.469 ml IV Total 981.249 ml 479.469 ml Tube Feeding 120 ml 270 ml Other 180 ml 150 ml # Bowel Movements 1 Dressing: other Wound: other Cardiovascular: RSR Respiratory: decreased breath sounds Abdomen: soft, non-tender, present bowel sounds Extremities: edema, no tenderness, no cyanosis Laboratory Tests Test 10/06/19 04:16 10/06/19 04:46 White Blood Count 17.1 K/UL (4.8-10.8) H Red Blood Count 3.40 M/UL (4.70-6.10) L Hemoglobin 10.3 G/DL (14.2-18.0) L Hematocrit 33.2 % (42.0-52.0) L Mean Corpuscular Volume 98 FL (80-99) Mean Corpuscular Hemoglobin 30.3 PG (27.0-31.0) Mean Corpuscular Hemoglobin Concent 31.1 G/DL (32.0-36.0) L Red Cell Distribution Width 17.0 % (11.6-14.8) H Platelet Count 164 K/UL (150-450) Mean Platelet Volume 6.2 FL (6.5-10.1) L Neutrophils (%) (Auto) % (45.0-75.0) Lymphocytes (%) (Auto) % (20.0-45.0) Monocytes (%) (Auto) % (1.0-10.0) Eosinophils (%) (Auto) % (0.0-3.0) Basophils (%) (Auto) % (0.0-2.0) Differential Total Cells Counted 100 Neutrophils % (Manual) 83 % (45-75) H Lymphocytes % (Manual) 7 % (20-45) L Monocytes % (Manual) 10 % (1-10) Eosinophils % (Manual) 0 % (0-3) Basophils % (Manual) 0 % (0-2) Band Neutrophils 0 % (0-8) Platelet Estimate Adequate Platelet Morphology Normal Anisocytosis 1+ Activated Partial Thromboplast Time 67 SEC (23-33) H Sodium Level 127 MMOL/L (136-145) L Potassium Level 3.9 MMOL/L (3.5-5.1) Chloride Level 87 MMOL/L (98-107) L Carbon Dioxide Level 22 MMOL/L (21-32) Anion Gap 18 mmol/L (5-15) H Blood Urea Nitrogen 32 mg/dL (7-18) H Creatinine 6.9 MG/DL (0.55-1.30) H Estimat Glomerular Filtration Rate 9.7 mL/min (>60) Glucose Level 203 MG/DL (74-106) #H Calcium Level 6.6 MG/DL (8.5-10.1) L Total Bilirubin 0.4 MG/DL (0.2-1.0) Aspartate Amino Transf (AST/SGOT) 21 U/L (15-37) Alanine Aminotransferase (ALT/SGPT) 22 U/L (12-78) Alkaline Phosphatase 290 U/L (46-116) H Troponin I 0.025 ng/mL (0.000-0.056) Pro-B-Type Natriuretic Peptide > 84798 pg/mL (0-125) H Total Protein 6.4 G/DL (6.4-8.2) Albumin 2.2 G/DL (3.4-5.0) L Globulin 4.2 g/dL Albumin/Globulin Ratio 0.5 (1.0-2.7) L Random Vancomycin Level 18.7 ug/mL Triglycerides Level 104 MG/DL (30-150) Plan Problems: (1) Cardiopulmonary arrest Assessment & Plan: in ICU on support weaning labs noted cont current care Assessment of pt's skin limited as pt is stable at present to be turned in bed. Generalized edemae noted. Shaft of penis is swollen,erythematous and oozing small amt purulent exudate from meatus. At head of Penis is an irregular shaped wound with 100% slough at base of wound(L)3cm x (W)2.5cm. Edges are erythematous with surrounding erythema shaft. Laterally, but in close proximity is small pustule(L)0.5cm x (W)0.4cm.Along foreskin is erythematous and swollen. 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 No surrounding erythema or evidence of further skin breakdown noted. L Lower ext noted to have very snugged sharee wrap which was removed. Xerosis skin with Haemosiderin deposits noted to LLE. LLE washed and moisturized to better assess wounds. Two areas of dry pink epithelial noted to dorsal and lateral L tibia. Linear Dry eschar noted to posterior L Knee (L)1.2cm x (W)9.5cm. No surrounding erythema or induration noted. Full thickness wound L Hallux(L)3cm x (W)2.5cm.Base of wound is 100% yellow slough. Margins are erythematous. Periwound is dark and indurated. Wound is malodorous. No exudate noted. L 5th TMA noted. At distal /lateral L foot is a Full Thickness wound(L)2cm x (W) 2.5cm. Base of wound is 80% mixed slough and eschar,20% carol. Edges are macerated. Small amt seropurulent exudate noted. Wound is malodorous. At Plantar aspect of L foot at 3rd and 4th metatarsal heads is a full thickness wound that is malodorous. (L)1.5cm x (W)1cm. Base of wound is mixed soft necrosis and slough. Small amt seropurulent exudate noted. Periwound skin is callused but no erythema noted. DTPI noted to L heel (L)3.1cm x (W)2cm. Base of injury is purpuric and fluctuant. Surrounding areas of L heel is boggy without erythema. Hyperpigmentation from previous wound noted to medial L malleolus. Will plan to assess Back and sacral area when pt is stable to be turned. Tx.Plan:Cleanse wound Penis with Saline. Apply Nickel thick layer of Santyl with saline moistened 2x2 gauze Daily and prn. Apply Bactroban to wounds on Penis TID as directed by . Cleanse Wounds L Foot with Saline. Apply Nickel Thick layer Santyl. Apply Saline moistened gauze to each wound. Cover with ABD pad. Wrap with Kerlix Daily and prn. Apply Cavilon Skin Barrier to posterior L Knee Daily and prn. Moisturize dry skin LLE daily with each drsg changes. Apply Cavilon Skin Barrier to L Heel daily. Apply Cavilon Skin Barrier to base of R BKA Stump. Cover with ABD Pad. Wrap with Kerlix every 3 days and prn. Apply Moisture Barrier Paste to sacrum. Cover with Optifoam drsg. Change every 3 days and prn. Reposition at least every 2hours or as tolerated. Off-load L Heel with Pillow. Off-load L BKA with Pillow. APM/NATHALY Mattress overlay. (2) Bilateral pleural effusion Assessment & Plan: Interim endotracheal intubation, endotracheal tube tip in good position projecting approximately 7 cm above the ravinder. Interim placement of an orogastric tube, tip of which projects beyond the edge of the image, position therefore indeterminate. Right jugular dialysis catheter is again demonstrated. Large right pleural effusion, mild interstitial edema bilaterally persist. Impression: Satisfactory endotracheal intubation. Patient's nurse notified at the time of interpretation Status post nasogastric intubation, tip below the diaphragm but otherwise position indeterminate. (3) CHF (congestive heart failure) (4) Hypoxia (5) ARF (acute renal failure) (6) Injury of left upper extremity (7) bleeding AV shunt (8) Diabetes (9) Hypertension, benign (10) Anemia in chronic kidney disease (11) Dialysis AV fistula malfunction (12) Abnormal laboratory test result (13) Respiratory distress (14) Hyperglycemia (15) Asthma (16) CHF exacerbation (17) Atrial flutter (18) End-stage renal disease (19) SVT (supraventricular tachycardia) Bolivar Barrios Oct 06, 2019 14:56
--- NOTE | 2019-10-06 15:00 | NUR ---
NURSE NOTES: Dialysis complete at this time. 2.5L out. Pt remains off pressors.
--- NOTE | 2019-10-06 15:16 | NUR ---
*-* INSURANCE *-* UPDATED CLINICALS AND REVIEWS HAVE BEEN FAXED TO: [facility] AUTH#[id number] FAX CLINICALS TO [employer] P:[phone] F:[phone]
--- NOTE | 2019-10-06 15:53 | Nephrology Progress Note ---
Assessment/Plan Problem List: (1) Ulcer of leg due to secondary diabetes (2) Cardiopulmonary arrest (3) CHF (congestive heart failure) (4) Bilateral pleural effusion (5) Diabetes (6) Anemia in chronic kidney disease (7) Atrial flutter (8) End-stage renal disease (9) Osteomyelitis of ankle or foot, left, acute Plan levophed now off, low -normal bp, glu and insulin adjusted, start nephro tube feed, fever and leg wounds, possible osteo--confirmed by xray, , start vanco and cefepime, HD today UF-2.5L all icu orders reviewed Subjective ROS Limited/Unobtainable: Yes Objective Objective Last 24 Hour Vital Signs Date Time Temp Pulse Resp B/P (MAP) Pulse Ox O2 Delivery O2 Flow Rate FiO2 10/06/19 15:21 115 28 99 Mechanical Ventilator 35 113 26 35 10/06/19 14:00 112/72 10/06/19 14:00 101 20 109/63 (78) 97 10/06/19 13:49 100 24 35 10/06/19 13:30 105 19 104/68 (80) 100 10/06/19 13:02 17 110/63 Mechanical Ventilator 60 10/06/19 13:00 103 16 110/62 (78) 100 10/06/19 13:00 16 110/62 Mechanical Ventilator 100 10/06/19 12:30 107 18 112/63 (79) 99 10/06/19 12:06 100/60 10/06/19 12:00 Mechanical Ventilator Mechanical Ventilator 10/06/19 12:00 126 10/06/19 12:00 16 100/64 Mechanical Ventilator 60 10/06/19 12:00 126 100/60 10/06/19 12:00 98.9 126 18 98/61 (73) 100 10/06/19 12:00 60 10/06/19 11:30 127 17 104/63 (77) 100 10/06/19 11:00 16 110/59 Mechanical Ventilator 60 10/06/19 11:00 126 19 110/59 (76) 100 10/06/19 10:55 126 25 99 Mechanical Ventilator 35 127 27 35 10/06/19 10:30 114 21 105/64 (78) 98 10/06/19 10:15 99 19 101/79 (86) 97 8/17/20 10:00 16 101/79 Mechanical Ventilator 60 10/06/19 10:00 105 20 98/62 (74) 91 10/06/19 09:45 93 19 83/56 (65) 97 93 10/06/19 09:30 93 19 85/57 (66) 97 93 10/06/19 09:02 93 20 35 10/06/19 09:00 60 10/06/19 09:00 16 91/59 Mechanical Ventilator 60 10/06/19 09:00 85/57 10/06/19 09:00 85/57 10/06/19 09:00 95 85/57 10/06/19 09:00 94 20 88/62 (71) 99 94 10/06/19 08:30 92 18 84/51 (62) 99 92 10/06/19 08:00 95 10/06/19 08:00 100.0 95 19 92/44 (60) 99 95 10/06/19 08:00 16 88/49 Mechanical Ventilator 60 10/06/19 08:00 Mechanical Ventilator Mechanical Ventilator 10/06/19 07:30 95 22 81/57 (65) 97 95 10/06/19 07:01 105 19 99 Mechanical Ventilator 35 102 21 35 10/06/19 07:00 21 93/65 Mechanical Ventilator 60 10/06/19 07:00 96 21 93/65 (74) 96 10/06/19 06:45 108 23 86/49 (61) 95 10/06/19 06:30 112 22 105/55 (72) 94 10/06/19 06:29 110 21 93/55 (68) 94 10/06/19 06:15 124 20 84/70 (75) 94 10/06/19 06:00 24 95/52 Mechanical Ventilator 60 10/06/19 06:00 126 24 95/52 (66) 93 10/06/19 05:45 127 25 98/57 (71) 94 10/06/19 05:40 23 103/53 Mechanical Ventilator 60 10/06/19 05:40 127 103/53 10/06/19 05:30 127 25 103/53 (70) 94 10/06/19 05:15 128 21 94/53 (67) 92 10/06/19 05:10 127 21 35 10/06/19 05:00 26 113/67 Mechanical Ventilator 50 10/06/19 05:00 127 26 113/67 (82) 90 10/06/19 04:45 128 19 99/53 (68) 100 10/06/19 04:45 19 99/53 Mechanical Ventilator 50 10/06/19 04:30 128 25 112/59 (76) 99 10/06/19 04:30 25 112/59 Mechanical Ventilator 50 10/06/19 04:15 128 21 95/52 (66) 100 10/06/19 04:15 21 95/52 Mechanical Ventilator 50 10/06/19 04:00 Mechanical Ventilator Mechanical Ventilator 10/06/19 04:00 50 10/06/19 04:00 22 99/55 Mechanical Ventilator 35 10/06/19 04:00 99.6 128 22 99/54 (69) 100 10/06/19 04:00 128 10/06/19 03:45 128 22 108/55 (72) 100 10/06/19 03:30 129 22 102/58 (73) 100 10/06/19 03:15 129 22 113/59 (77) 100 10/06/19 03:15 22 113/59 Mechanical Ventilator 35 10/06/19 03:00 129 23 100 Mechanical Ventilator 35 128 20 35 10/06/19 03:00 23 121/58 Mechanical Ventilator 35 10/06/19 03:00 130 23 121/58 (79) 100 10/06/19 02:45 128 24 121/68 (85) 100 10/06/19 02:45 24 121/68 Mechanical Ventilator 35 10/06/19 02:30 128 22 108/65 (79) 100 10/06/19 02:30 22 108/65 Mechanical Ventilator 35 10/06/19 02:00 128 18 114/59 (77) 100 10/06/19 02:00 18 114/59 Mechanical Ventilator 35 10/06/19 01:45 128 18 107/65 (79) 100 10/06/19 01:30 128 18 117/59 (78) 100 10/06/19 01:00 20 115/63 Mechanical Ventilator 35 10/06/19 01:00 128 20 115/63 (80) 100 10/06/19 00:37 128 19 35 10/06/19 00:30 128 21 117/68 (84) 100 10/06/19 00:15 101 18 109/57 (74) 100 10/06/19 00:00 35 10/06/19 00:00 99.1 99 19 103/74 (84) 100 10/06/19 00:00 19 103/74 Mechanical Ventilator 35 10/06/19 00:00 107 103/74 10/06/19 00:00 Mechanical Ventilator Mechanical Ventilator 10/06/19 00:00 99 10/05/19 23:30 102 18 94/62 (73) 100 10/05/19 23:00 121 21 107/64 (78) 100 10/05/19 23:00 21 107/64 Mechanical Ventilator 35 10/05/19 22:55 99 27 100 Mechanical Ventilator 35 110 18 35 10/05/19 22:30 102 20 99/51 (67) 100 10/05/19 22:01 21 103/61 Mechanical Ventilator 35 10/05/19 22:00 21 100/52 Mechanical Ventilator 35 10/05/19 22:00 104 21 100/52 (68) 100 10/05/19 21:45 114 18 103/61 (75) 100 10/05/19 21:30 110 23 106/58 (74) 100 10/05/19 21:15 109 19 103/65 (78) 100 10/05/19 21:13 108 19 Mechanical Ventilator 35 10/05/19 21:00 115 20 113/55 (74) 100 10/05/19 21:00 20 113/55 Mechanical Ventilator 35 10/05/19 20:45 105 18 97/61 (73) 100 10/05/19 20:45 18 97/61 Mechanical Ventilator 35 10/05/19 20:45 108 104/62 10/05/19 20:30 102 18 104/62 (76) 100 10/05/19 20:30 18 104/62 Mechanical Ventilator 35 10/05/19 20:15 103 18 95/54 (68) 100 10/05/19 20:15 18 95/54 Mechanical Ventilator 35 10/05/19 20:00 98.6 105 22 90/36 (54) 100 10/05/19 20:00 Mechanical Ventilator Mechanical Ventilator 10/05/19 20:00 22 90/36 Mechanical Ventilator 35 10/05/19 20:00 35 10/05/19 19:31 109 10/05/19 19:30 114 16 114/53 (73) 100 10/05/19 19:20 110 16 100 Mechanical Ventilator 35 112 16 35 10/05/19 19:00 113 20 115/56 (75) 100 10/05/19 19:00 22 103/64 Mechanical Ventilator 35 10/05/19 18:30 127 22 116/60 (78) 100 10/05/19 18:00 86 18 93/49 (64) 100 10/05/19 18:00 19 103/50 Mechanical Ventilator 35 10/05/19 17:30 88 18 94/50 (65) 100 10/05/19 17:15 84 16 35 10/05/19 17:11 100/64 10/05/19 17:10 60 100/64 10/05/19 17:00 96 21 101/48 (65) 100 10/05/19 17:00 17 96/48 Mechanical Ventilator 35 10/05/19 17:00 90 10/05/19 16:00 Mechanical Ventilator Mechanical Ventilator 10/05/19 16:00 88 10/05/19 16:00 96 18 107/61 (76) 100 10/05/19 16:00 35 10/05/19 16:00 20 103/64 Mechanical Ventilator 35 10/05/19 16:00 103/64 Intake and Output 10/05/19 10/06/19 19:00 07:00 Intake Total 1281.249 ml 899.469 ml Balance 1281.249 ml 899.469 ml IV Total 981.249 ml 479.469 ml Tube Feeding 120 ml 270 ml Other 180 ml 150 ml # Bowel Movements 1 Laboratory Tests 10/06/19 04:16: White Blood Count 17.1H, Red Blood Count 3.40L, Hemoglobin 10.3L, Hematocrit 33.2L, Mean Corpuscular Volume 98, Mean Corpuscular Hemoglobin 30.3, Mean Corpuscular Hemoglobin Concent 31.1L, Red Cell Distribution Width 17.0H, Platelet Count 164, Mean Platelet Volume 6.2L, Neutrophils (%) (Auto) , Lymphocytes (%) (Auto) , Monocytes (%) (Auto) , Eosinophils (%) (Auto) , Basophils (%) (Auto) , Differential Total Cells Counted 100, Neutrophils % ( Manual) 83H, Lymphocytes % (Manual) 7L, Monocytes % (Manual) 10, Eosinophils % ( Manual) 0, Basophils % (Manual) 0, Band Neutrophils 0, Platelet Estimate Adequate, Platelet Morphology Normal, Anisocytosis 1+, Activated Partial Thromboplast Time 67H, Sodium Level 127L, Potassium Level 3.9, Chloride Level 87L, Carbon Dioxide Level 22, Anion Gap 18H, Blood Urea Nitrogen 32H, Creatinine 6.9H, Estimat Glomerular Filtration Rate 9.7, Glucose Level 203#H, Calcium Level 6.6L, Total Bilirubin 0.4, Aspartate Amino Transf (AST/SGOT) 21, Alanine Aminotransferase (ALT/SGPT) 22, Alkaline Phosphatase 290H, Troponin I 0.025, Pro-B-Type Natriuretic Peptide > 90933B, Total Protein 6.4, Albumin 2.2L , Globulin 4.2, Albumin/Globulin Ratio 0.5L, Random Vancomycin Level 18.7 10/06/19 04:46: Triglycerides Level 104 Height (Feet): 5 Height (Inches): 6.00 Weight (Pounds): 179 General Appearance: other - sedated vent Neck: normal alignment Cardiovascular: regularly irregular Respiratory/Chest: rhonchi - bilaterally Abdomen: non tender Extremities: trace edema Neurologic: unresponsive Smith Tidwell MD Oct 06, 2019 15:53
--- NOTE | 2019-10-06 16:47 | Diagnostic Imaging Report ---
Indication: Abnormal chest sounds Technique: One view of the chest Comparison: 10/03/2019 Findings: Since prior exam, the endotracheal tube has retracted, tip now just above the thoracic inlet and just below the vocal cords by about 2 cm. There appears to be decreased pleural fluid on the right. Interstitial edema and hazy airspace disease persists. Wedge-shaped opacity on the left may reflect fluid within the major fissure. This has increased. Right jugular tunneled dialysis catheter remains. Orogastric tube remains. Impression: Interim retraction of endotracheal tube, tip now barely within the trachea and just below the vocal cords. Recommend advancement. This was discussed by phone with charge nurse in the ICU Karina at the time of interpretation. Decreased right pleural effusion Persistent interstitial edema New wedge-shaped opacity in the left lung, may reflect infiltrate or fluid within the major fissure
--- NOTE | 2019-10-06 17:00 | NUR ---
NURSE NOTES: Pt tube feedings increased to 45mL/hr. No residual noted. Pt's ETT advanced slightly d/t RT hearing a gurgling sound. STAT CXRAY taken and radiologist advised to advance another 3-4cm. Will let RT know
--- NOTE | 2019-10-06 17:20 | NUR ---
NURSE NOTES: ETT advanced to 28cm at the lip line. STAT CXRAY ordered to confirm placement. Addendum: 10/06/19 at 0 by Trisha Hayden RN NURSE NOTES: ETT advanced to 26cm at the lip line. STAT CXRAY ordered to confirm placement.
--- NOTE | 2019-10-06 17:26 | NUR ---
CASE MANAGEMENT:REVIEW 10/06/19 SI;A-FIB/FLUTTER. CHF. ESRD on HD. PULMONARY EDEMA. RESPIRATORY FAILURE. 98.9 126 18 98/61 100% MECH VENT/ORALLY INTUBATED FIO2 @ 60% WBC 17.1 NA+ 127 BUN/CREAT 36.9 BG 203 CA+ 6.6 BNP>[id number] IS;IV CEFEPIME QD ATROVENT HHN Q4HR IV PROPOFOL QD PROTOCOL HEPARIN GTT NOVOLOG SQ AC+HS SYNTHROID PO QAC ASA PO QD \: ICU STATUS DCP:HOME WHEN STABLE
--- NOTE | 2019-10-06 17:33 | NUR ---
*-* INSURANCE *-* UPDATED CLINICALS AND REVIEWS HAVE BEEN FAXED TO: [facility] AUTH#[id number] FAX CLINICALS TO [employer] P:[phone] F:[phone]
[2019-10-06] MEDS: Renvela 2400 mg pkt ORAL SCH (17:51)
--- NOTE | 2019-10-06 18:00 | NUR ---
NURSE NOTES: Pt getting better volumes now that tube has been advanced. Current vent settings: AC 16, TV 500, FiO2 35%, PEEP 5; O2sat 100%
--- NOTE | 2019-10-06 18:15 | Pulmonology Progress Note ---
Subjective ROS Limited/Unobtainable: Yes Interval Events: None new Constitutional: Reports: no symptoms HEENT: Repors: no symptoms Respiratory: Reports: no symptoms Cardiovascular: Reports: no symptoms Gastrointestinal/Abdominal: Reports: no symptoms Allergies: Coded Allergies: Dust (Verified Allergy, Unknown, 06/06/19) Objective Last 24 Hour Vital Signs Date Time Temp Pulse Resp B/P (MAP) Pulse Ox O2 Delivery O2 Flow Rate FiO2 10/06/19 17:51 120/70 10/06/19 17:50 127 125/70 10/06/19 16:53 110 29 35 10/06/19 16:30 118 23 117/64 (81) 100 10/06/19 16:00 114 20 115/67 (83) 100 10/06/19 16:00 114 10/06/19 16:00 Mechanical Ventilator Mechanical Ventilator 10/06/19 16:00 60 10/06/19 16:00 16 123/67 Mechanical Ventilator 60 10/06/19 15:30 111 20 117/65 (82) 100 10/06/19 15:21 115 28 99 Mechanical Ventilator 35 113 26 35 10/06/19 15:00 106 26 112/73 (86) 91 10/06/19 15:00 16 125/95 Mechanical Ventilator 60 10/06/19 14:30 105 24 112/72 (85) 92 10/06/19 14:00 16 111/57 Mechanical Ventilator 60 10/06/19 14:00 112/72 10/06/19 14:00 101 20 109/63 (78) 97 10/06/19 13:49 100 24 35 10/06/19 13:30 105 19 104/68 (80) 100 10/06/19 13:02 17 110/63 Mechanical Ventilator 60 10/06/19 13:00 103 16 110/62 (78) 100 10/06/19 13:00 16 110/62 Mechanical Ventilator 100 10/06/19 12:30 107 18 112/63 (79) 99 10/06/19 12:06 100/60 10/06/19 12:00 Mechanical Ventilator Mechanical Ventilator 10/06/19 12:00 126 10/06/19 12:00 16 100/64 Mechanical Ventilator 60 10/06/19 12:00 126 100/60 10/06/19 12:00 98.9 126 18 98/61 (73) 100 10/06/19 12:00 60 10/06/19 11:30 127 17 104/63 (77) 100 10/06/19 11:00 16 110/59 Mechanical Ventilator 60 10/06/19 11:00 126 19 110/59 (76) 100 10/06/19 10:55 126 25 99 Mechanical Ventilator 35 127 27 35 10/06/19 10:30 114 21 105/64 (78) 98 10/06/19 10:15 99 19 101/79 (86) 97 10/06/19 10:00 16 101/79 Mechanical Ventilator 60 10/06/19 10:00 105 20 98/62 (74) 91 10/06/19 09:45 93 19 83/56 (65) 97 93 10/06/19 09:30 93 19 85/57 (66) 97 93 10/06/19 09:02 93 20 35 10/06/19 09:00 60 10/06/19 09:00 16 91/59 Mechanical Ventilator 60 10/06/19 09:00 85/57 10/06/19 09:00 85/57 10/06/19 09:00 95 85/57 10/06/19 09:00 94 20 88/62 (71) 99 94 10/06/19 08:30 92 18 84/51 (62) 99 92 10/06/19 08:00 95 10/06/19 08:00 100.0 95 19 92/44 (60) 99 95 10/06/19 08:00 16 88/49 Mechanical Ventilator 60 10/06/19 08:00 Mechanical Ventilator Mechanical Ventilator 10/06/19 07:30 95 22 81/57 (65) 97 95 10/06/19 07:01 105 19 99 Mechanical Ventilator 35 102 21 35 10/06/19 07:00 21 93/65 Mechanical Ventilator 60 10/06/19 07:00 96 21 93/65 (74) 96 10/06/19 06:45 108 23 86/49 (61) 95 10/06/19 06:30 112 22 105/55 (72) 94 10/06/19 06:29 110 21 93/55 (68) 94 10/06/19 06:15 124 20 84/70 (75) 94 10/06/19 06:00 24 95/52 Mechanical Ventilator 60 10/06/19 06:00 126 24 95/52 (66) 93 10/06/19 05:45 127 25 98/57 (71) 94 10/06/19 05:40 23 103/53 Mechanical Ventilator 60 10/06/19 05:40 127 103/53 10/06/19 05:30 127 25 103/53 (70) 94 10/06/19 05:15 128 21 94/53 (67) 92 10/06/19 05:10 127 21 35 10/06/19 05:00 26 113/67 Mechanical Ventilator 50 10/06/19 05:00 127 26 113/67 (82) 90 10/06/19 04:45 128 19 99/53 (68) 100 10/06/19 04:45 19 99/53 Mechanical Ventilator 50 10/06/19 04:30 128 25 112/59 (76) 99 10/06/19 04:30 25 112/59 Mechanical Ventilator 50 10/06/19 04:15 128 21 95/52 (66) 100 10/06/19 04:15 21 95/52 Mechanical Ventilator 50 10/06/19 04:00 Mechanical Ventilator Mechanical Ventilator 10/06/19 04:00 50 10/06/19 04:00 22 99/55 Mechanical Ventilator 35 10/06/19 04:00 99.6 128 22 99/54 (69) 100 10/06/19 04:00 128 10/06/19 03:45 128 22 108/55 (72) 100 10/06/19 03:30 129 22 102/58 (73) 100 10/06/19 03:15 129 22 113/59 (77) 100 10/06/19 03:15 22 113/59 Mechanical Ventilator 35 10/06/19 03:00 129 23 100 Mechanical Ventilator 35 128 20 35 10/06/19 03:00 23 121/58 Mechanical Ventilator 35 10/06/19 03:00 130 23 121/58 (79) 100 10/06/19 02:45 128 24 121/68 (85) 100 10/06/19 02:45 24 121/68 Mechanical Ventilator 35 10/06/19 02:30 128 22 108/65 (79) 100 10/06/19 02:30 22 108/65 Mechanical Ventilator 35 10/06/19 02:00 128 18 114/59 (77) 100 10/06/19 02:00 18 114/59 Mechanical Ventilator 35 10/06/19 01:45 128 18 107/65 (79) 100 10/06/19 01:30 128 18 117/59 (78) 100 10/06/19 01:00 20 115/63 Mechanical Ventilator 35 10/06/19 01:00 128 20 115/63 (80) 100 10/06/19 00:37 128 19 35 10/06/19 00:30 128 21 117/68 (84) 100 10/06/19 00:15 101 18 109/57 (74) 100 10/06/19 00:00 35 10/06/19 00:00 99.1 99 19 103/74 (84) 100 10/06/19 00:00 19 103/74 Mechanical Ventilator 35 10/06/19 00:00 107 103/74 10/06/19 00:00 Mechanical Ventilator Mechanical Ventilator 10/06/19 00:00 99 10/05/19 23:30 102 18 94/62 (73) 100 10/05/19 23:00 121 21 107/64 (78) 100 10/05/19 23:00 21 107/64 Mechanical Ventilator 35 10/05/19 22:55 99 27 100 Mechanical Ventilator 35 110 18 35 10/05/19 22:30 102 20 99/51 (67) 100 10/05/19 22:01 21 103/61 Mechanical Ventilator 35 10/05/19 22:00 21 100/52 Mechanical Ventilator 35 10/05/19 22:00 104 21 100/52 (68) 100 10/05/19 21:45 114 18 103/61 (75) 100 10/05/19 21:30 110 23 106/58 (74) 100 10/05/19 21:15 109 19 103/65 (78) 100 10/05/19 21:13 108 19 Mechanical Ventilator 35 10/05/19 21:00 115 20 113/55 (74) 100 10/05/19 21:00 20 113/55 Mechanical Ventilator 35 10/05/19 20:45 105 18 97/61 (73) 100 10/05/19 20:45 18 97/61 Mechanical Ventilator 35 10/05/19 20:45 108 104/62 10/05/19 20:30 102 18 104/62 (76) 100 10/05/19 20:30 18 104/62 Mechanical Ventilator 35 10/05/19 20:15 103 18 95/54 (68) 100 10/05/19 20:15 18 95/54 Mechanical Ventilator 35 10/05/19 20:00 98.6 105 22 90/36 (54) 100 10/05/19 20:00 Mechanical Ventilator Mechanical Ventilator 10/05/19 20:00 22 90/36 Mechanical Ventilator 35 10/05/19 20:00 35 10/05/19 19:31 109 10/05/19 19:30 114 16 114/53 (73) 100 10/05/19 19:20 110 16 100 Mechanical Ventilator 35 112 16 35 10/05/19 19:00 113 20 115/56 (75) 100 10/05/19 19:00 22 103/64 Mechanical Ventilator 35 10/05/19 18:30 127 22 116/60 (78) 100 Intake and Output 10/05/19 10/06/19 19:00 07:00 Intake Total 1281.249 ml 899.469 ml Balance 1281.249 ml 899.469 ml IV Total 981.249 ml 479.469 ml Tube Feeding 120 ml 270 ml Other 180 ml 150 ml # Bowel Movements 1 General Appearance: no acute distress HEENT: normocephalic Respiratory: chest wall non-tender, lungs clear Cardiovascular: normal peripheral pulses, normal rate Abdomen: normal bowel sounds Laboratory Tests 10/06/19 04:16: White Blood Count 17.1H, Red Blood Count 3.40L, Hemoglobin 10.3L, Hematocrit 33.2L, Mean Corpuscular Volume 98, Mean Corpuscular Hemoglobin 30.3, Mean Corpuscular Hemoglobin Concent 31.1L, Red Cell Distribution Width 17.0H, Platelet Count 164, Mean Platelet Volume 6.2L, Neutrophils (%) (Auto) , Lymphocytes (%) (Auto) , Monocytes (%) (Auto) , Eosinophils (%) (Auto) , Basophils (%) (Auto) , Differential Total Cells Counted 100, Neutrophils % ( Manual) 83H, Lymphocytes % (Manual) 7L, Monocytes % (Manual) 10, Eosinophils % ( Manual) 0, Basophils % (Manual) 0, Band Neutrophils 0, Platelet Estimate Adequate, Platelet Morphology Normal, Anisocytosis 1+, Activated Partial Thromboplast Time 67H, Sodium Level 127L, Potassium Level 3.9, Chloride Level 87L, Carbon Dioxide Level 22, Anion Gap 18H, Blood Urea Nitrogen 32H, Creatinine 6.9H, Estimat Glomerular Filtration Rate 9.7, Glucose Level 203#H, Calcium Level 6.6L, Total Bilirubin 0.4, Aspartate Amino Transf (AST/SGOT) 21, Alanine Aminotransferase (ALT/SGPT) 22, Alkaline Phosphatase 290H, Troponin I 0.025, Pro-B-Type Natriuretic Peptide > 25620N, Total Protein 6.4, Albumin 2.2L , Globulin 4.2, Albumin/Globulin Ratio 0.5L, Random Vancomycin Level 18.7 10/06/19 04:46: Triglycerides Level 104 Current Medications Medications (Trade) Dose Ordered Sig/Monica Route PRN Reason Start Time Stop Time Status Last Admin Dose Admin Acetaminophen (Tylenol) 650 mg Q4H PRN ORAL Mild Pain (Pain Scale 1-3) 10/03/19 14:00 11/01/19 13:59 10/05/19 09:51 Acetaminophen (Tylenol) 650 mg Q4H PRN ORAL Temp >100.5 10/03/19 14:00 11/01/19 13:59 Aspirin (ASA) 81 mg DAILY ORAL 10/04/19 09:00 11/17/19 08:59 10/06/19 09:41 Atorvastatin Calcium (Lipitor) 20 mg BEDTIME ORAL 10/03/19 21:00 12/31/19 20:59 10/05/19 20:45 Beclomethasone Dipropionate (Qvar 40 Inhaler) 1 puff BIDRT INH 10/03/19 22:00 11/02/19 21:59 Carvedilol (Coreg) 37.5 mg EVERY 12 HOURS ORAL 10/03/19 21:00 11/01/19 20:59 Cefepime HCl 500 mg/Dextrose 55 ml @ 110 mls/hr Q24H IV 10/06/19 12:00 10/13/19 11:59 10/06/19 14:50 Chlorhexidine Gluconate (Dina-Hex 2%) 1 applic DAILY@1999 TOPIC 10/03/19 20:00 01/01/20 19:59 10/05/19 19:39 Collagenase (Santyl) 1 applic DAILY TOPIC 10/03/19 15:00 01/01/20 14:59 10/06/19 09:42 Dextrose (Dextrose 50%) 25 ml Q30M PRN IV Hypoglycemia 10/03/19 14:15 12/31/19 20:14 10/05/19 10:21 Dextrose (Dextrose 50%) 50 ml Q30M PRN IV Hypoglycemia 10/03/19 14:15 12/31/19 20:14 10/05/19 05:31 Diltiazem HCl (Cardizem Tab) 90 mg Q6HR ORAL 10/03/19 18:00 11/01/19 20:14 10/06/19 17:50 Diphenhydramine HCl (Benadryl) 25 mg Q6H PRN ORAL Itching/Pruritis 10/03/19 14:15 11/01/19 20:14 Diphenoxylate HCl/ Atropine (Lomotil) 2.5 mg Q4H PRN ORAL Diarrhea 10/03/19 14:00 11/01/19 13:59 Heparin Sodium/ Dextrose 500 ml @ 28.74 mls/ hr ADJUST PER PROTOCOL IV 10/03/19 21:30 11/02/19 21:29 10/06/19 12:05 Hydromorphone HCl (Dilaudid) 2 mg Q4H PRN IVP For Pain (4-10) 10/03/19 14:00 10/10/19 01:59 Insulin Aspart (NovoLOG) BEFORE MEALS AND HS SUBQ 10/03/19 16:30 12/31/19 20:59 10/06/19 17:56 Insulin Detemir (Levemir) 22 units BEDTIME SUBQ 10/06/19 21:00 01/04/20 20:59 Ipratropium [place] (Atrovent) 0.5 mcg Q4HRT HHN 10/03/19 15:00 10/07/19 22:59 10/06/19 15:27 Isosorbide Dinitrate (Isordil) 10 mg THREE TIMES A DAY ORAL 10/03/19 18:00 11/01/19 20:14 10/04/19 18:31 Levothyroxine Sodium (Synthroid) 75 mcg ACBREAKFAST ORAL 10/04/19 06:30 11/03/19 06:29 10/06/19 05:40 Lorazepam (Ativan 2mg/ml 1ml) 1 mg Q3H PRN IV For Anxiety 10/03/19 14:00 10/10/19 13:59 Losartan Potassium (Cozaar) 100 mg DAILY ORAL 10/04/19 09:00 11/02/19 08:59 Mupirocin (Bactroban Oint) 1 applic THREE TIMES A DAY TOPIC 10/03/19 15:00 10/08/19 14:59 10/06/19 17:52 Nitroglycerin (Ntg) 0.4 mg Q5M PRN SL Prn Chest Pain 10/03/19 13:50 11/01/19 20:14 Norepinephrine Bitartrate 8 mg/ Dextrose 250 ml @ 0 mls/hr Q24H IV 10/03/19 14:00 11/02/19 13:59 10/04/19 17:08 Ondansetron HCl (Zofran) 4 mg Q6H PRN IVP Nausea & Vomiting 10/03/19 14:00 11/01/19 13:59 Polyethylene Glycol (Miralax) 17 gm DAILYPRN PRN ORAL Constipation 10/03/19 14:00 11/01/19 13:59 Propofol 100 ml @ 0 mls/hr Q12H IV 10/05/19 14:00 10/07/19 13:59 10/06/19 13:02 Sevelamer Carbonate (Renvela) 2,400 mg THREE TIMES A DAY ORAL 10/06/19 18:00 01/04/20 17:59 10/06/19 17:51 Vancomycin HCl (Vanc pharmacy to dose) 1 ea DAILY PRN MISC Per rx protocol 10/05/19 11:15 11/04/19 11:14 Vancomycin/Sodium Chloride 275 ml @ 183.333 mls/hr ONCE ONCE IVPB 10/06/19 20:00 10/06/19 21:29 Assessment/Plan Assessment/Plan IMPRESSION: 1. ESRD, on dialysis. 2. Pulmonary edema. 3. Cardiac arrhythmias with A-flutter/AFib. 4. Status post cardiopulmonary arrest. 5. Respiratory failure 6. Previous right BKA. DISCUSSION: Continue current Ventilator settings, wean as tolerated once of pressors Sedation PRN PPX HD per Nephrology Cardiology following. Ming Wong MD Oct 06, 2019 18:15
--- NOTE | 2019-10-06 18:15 | NUR ---
NURSE NOTES: Pt fully cleaned and linens changed. Oral care done. BS 174; 3 units Novolog insulin given as per sliding scale. No distress noted at this time. Will continue to monitor.
--- NOTE | 2019-10-06 18:17 | Diagnostic Imaging Report ---
EXAM: XR Chest, 1 View CLINICAL HISTORY: malposition TECHNIQUE: Frontal view of the chest. COMPARISON: 2h prior FINDINGS: Lungs: Low lung volumes with bronchovascular crowding. Retrocardiac and left base atelectasis without or with consolidation, similar to mildly increased since prior study. Pleural space: Small right and minuscule left pleural effusions. No pneumothorax. Heart: Unremarkable. No cardiomegaly. Mediastinum: Unremarkable. Bones/joints: Unchanged sternotomy. Tubes, lines and devices: ETT 3.7 cm above ravinder. Enteric tube tip and proximal sideport below gastroesophageal junction, adequate for gastric decompression. Unchanged total right IJ approach dual-lumen central venous catheter, tip in the mid SVC. IMPRESSION: 1. ETT 3.7 cm above ravinder. 2. Enteric tube tip and proximal sideport below gastroesophageal junction, adequate for gastric decompression. 3. Unchanged total right IJ approach dual-lumen central venous catheter, tip in the mid SVC. 4. Retrocardiac and left base atelectasis without or with consolidation, similar to mildly increased since prior study. 5. Small right and minuscule left pleural effusions. 6. Low lung volumes with bronchovascular crowding.
--- NOTE | 2019-10-06 19:03 | NUR ---
RESPIRATORY NOTE: Received pt on AC 16, 500VT, 35%, PEEP +5. Pt is intubated w/ ETT 7.5 @ 26cm lipline, secured by anchorfast. Per AM RT & RN, pt lipline should be at 28cm, arrived at bedside & it was at 26cm. Confirmed w/ AM & NOC RNs at bedside & it was at 26 cm. Per Trisha RN, CXR was just taken on the current lip & are awaiting results. Pt is getting adequate VT as of the moment & no leak noted. Pt is currently sedated. B/S shraddha. rhonchi/diminished, sxn small amounts of thick, brady-yellow secretions. Vent plugged into red outlet, ambubag at bedside. Pt in no apparent distress at this time. Will continue to monitor pt.
--- NOTE | 2019-10-06 19:27 | NUR ---
NURSE HAND-OFF REPORT: Latest Vital Signs: Temperature 99.7 , Pulse 95 , B/P 101 /67 , Respiratory Rate 16 , O2 SAT 100 , Mechanical Ventilator, 35% FiO2 . Vital Sign Comment: EKG Rhythm: Atrial Fibrillation Rhythm change?: N Notified?: N Response: Latest Roman Fall Score: 70 Fall Risk: High Risk Safety Measures: Call light Within Reach, Bed Alarm Zone 1, Side Rails Side Rails x3, Bed position Low and Locked. Fall Precautions: Yellow Socks Door Sign Patient Fall Education Report given to SHANI Llanes.
--- NOTE | 2019-10-06 19:30 | NUR ---
NURSE NOTES: SBAR received from Trisha MCLEOD. Physical assessment performed at bedside; currently patient is sedated wit a maintained RASS score of -2. Patient does open eyes to verbal and tactile stimulus for about 5-7 seconds and then closes them. Patient is lightly sedated. Patient is orally intubated ETT 7.5/26cm at the lower lip. AC 16, 500tv, 35% FiO2, peep of 5. OGT feeds Nepro at 45ml. Multiple integumentary wounds noted, P200 mattress applied. RF TLC, dressinf is clean, dry and intact. Diprivan at 20mcg, Heparin gtt at 16units. JOEL AVF noted, bruit and thrill noted, Right subclavian PermCath noted also. Dressing is clean, dry and intact. Patient is getting full tidal volume, SpO2 100%, BP: 94/58, HR is 97 NSR, sometimes goes into Afib also. Aspirations, fall and skin precautions observed. Safety measures in place, will cotninue to monitor.
[2019-10-06] MEDS ORDERED: Vancomycin 1.25gm/NS Premix IVPB ONE (20:00)
--- NOTE | 2019-10-06 20:10 | NUR ---
RESPIRATORY NOTE: CXR results came in per SHANI Llanes to confirm ETT placement. Per imaging result "ETT 3.7 cm above ravinder." Will keep pt's lipline at 26cm. to be notified per RN. Will continue to monitor pt.
[2019-10-06] MEDS: Atorvastatin 20mg tab ORAL SCH (20:11)
[2019-10-06] MEDS: Dyna-Hex 2% Top Sol 2oz TOPIC SCH (20:11)
--- NOTE | 2019-10-06 20:30 | NUR ---
NURSE NOTES: Bedside assessment performed; temperature noted to be 100.8, cooling measure provided, Tylenol 650 via OGT given. water flush 60ml given. Feed residuals noted to be 10-20ml. Patient remains sedation at RASS score of -2, opens eyes to verbal stimulus for about 5 seconds. Passive range of motion given per patients tolerance. Organized pulses noted. Repositioned to comfort. Oral care performed and suctioned. Aspiration, fall and skin precaution observed. Safety measures remains in place, bed locked and bed alarm remains engaged.
[2019-10-06] MEDS ORDERED: Levemir Flexpen SUBQ SCH (21:00)
--- NOTE | 2019-10-06 21:57 | NUR ---
NURSE NOTES: Family notified of patients . Called Ozzy Conrad and Nash Hough. Addendum: 10/06/19 at 2247 by ZAYDA CLARKE RN DISREGARD NOTED, WRONG PATIENT ENTRY
--- NOTE | 2019-10-06 22:00 | NUR ---
NURSE NOTES: Bedside assessment performed; patient temperature now noted to be 99.6F; cooling measures continues. Patient was suctioned and repositioned. Patient remains sedated with RASS score of -2, patient opens eyes and for about 5-7 seconds with tactile and verbal stimulus. Patient suctioned and repositioned. Passive range of motion provided per patients tolerance. Will continue to monitor.
--- NOTE | 2019-10-06 22:00 | NUR ---
NURSE NOTES: [facility] was called and notified them of , they will contact back if they need any more information. Addendum: 10/06/19 at 2247 by ZAYDA CLARKE RN NURSE NOTES: DISREGARD NOTED, WRONG PATIENT ENTRY
--- NOTE | 2019-10-06 22:05 | NUR ---
NURSE NOTES: Called [facility] to report . No case per coroners office, body may be released to next of kin. Addendum: 10/06/19 at 2248 by ZAYDA CLARKE RN NURSE NOTES: DISREGARD THIS NOTED, WRONG PATIENT ENTRY
--- NOTE | 2019-10-06 22:07 | NUR ---
NURSE NOTES: Called Dr. Tijerina and notified him regarding patients , no new orders given. Addendum: 10/06/19 at 2248 by ZAYDA CLARKE RN NURSE NOTES: DISREGARD NOTED, WRONG PATIENT ENTRY
--- NOTE | 2019-10-06 23:31 | NUR ---
NURSE NOTES: Patient was going hypotensive, after assessing patient and attempting several BP cycles, patient continued to be hypotensive with Systolic ranging in the 60s and 70s. Had to start Levophed gtt to stabilize blood pressure. After Levophed gtt started patients BP began to normalize; 114/52, SpoO2 100% while on 35% FIo2. Will attempt to taper off once BP trends are within normotensive ranges.
[2019-10-07] VITALS (72 sets, daily range): BP systolic 89–122; BP diastolic 42–79
--- NOTE | 2019-10-07 02:00 | NUR ---
NURSE NOTES: slowly tapering off pressors, currently BP is 105/43. oral care and suctioned patient. Patient remains lightly sedated with a RASS score of -2. Patient able to open and close eyes to verbal and tactile stimulus for about 5-7 seconds. HR remains in afib rhythm ranging around 84-99. Reposition for comfort, aspiration, skin and fall precautioned observed, Passive range of motion performed, pulses present. Will continue to monitor patients progress.
--- NOTE | 2019-10-07 02:50 | Cardiology Progress Note ---
Subjective DATE OF SERVICE: Oct 06, 2019 Remains in ICU Condition Critical and prognosis guarded. Crit care time 52mins On tapering doses of pressors Monitor: AFib with NSVTach Orally intubated and mechanically ventilated Objective Last 24 Hour Vital Signs Date Time Temp Pulse Resp B/P (MAP) Pulse Ox O2 Delivery O2 Flow Rate FiO2 10/07/19 02:00 20 105/43 Mechanical Ventilator 35 10/07/19 02:00 105/43 10/07/19 01:45 82 19 108/42 (64) 95 10/07/19 01:30 83 20 108/47 (67) 96 10/07/19 01:15 86 20 105/46 (65) 95 10/07/19 01:00 86 20 104/48 (66) 98 10/07/19 01:00 20 105/46 Mechanical Ventilator 35 10/07/19 01:00 105/46 10/07/19 00:50 85 18 35 10/07/19 00:45 86 19 103/46 (65) 97 10/07/19 00:30 86 21 105/44 (64) 95 10/07/19 00:15 85 20 103/43 (63) 98 10/07/19 00:00 20 99/47 Mechanical Ventilator 35 10/07/19 00:00 99/47 10/07/19 00:00 99.5 88 19 101/47 (65) 98 10/07/19 00:00 35 10/07/19 00:00 Mechanical Ventilator Mechanical Ventilator 10/06/19 23:45 88 19 99/47 (64) 95 10/06/19 23:36 85 75/39 10/06/19 23:30 90 21 114/52 (72) 99 10/06/19 23:30 75/39 10/06/19 23:24 102 10/06/19 23:19 83 17 75/39 (51) 100 10/06/19 23:17 85 20 100 Mechanical Ventilator 35 77 17 35 10/06/19 23:17 65 16 59/40 (46) 100 10/06/19 23:15 80 16 69/43 (52) 100 10/06/19 23:00 83 21 91/38 (55) 99 10/06/19 23:00 20 91/38 Mechanical Ventilator 35 10/06/19 22:51 85 20 94/37 (56) 99 10/06/19 22:45 85 21 96/36 (56) 99 10/06/19 22:30 85 18 86/44 (58) 95 10/06/19 22:15 78 20 87/38 (54) 99 10/06/19 22:00 75 19 85/43 (57) 99 10/06/19 22:00 18 85/43 Mechanical Ventilator 35 10/06/19 21:45 74 19 84/38 (53) 99 10/06/19 21:30 76 19 89/40 (56) 98 10/06/19 21:15 80 20 83/35 (51) 99 10/06/19 21:02 99.8 10/06/19 21:00 16 82/50 Mechanical Ventilator 35 10/06/19 21:00 82 19 82/50 (61) 100 10/06/19 20:45 83 22 87/44 (58) 98 10/06/19 20:40 86 19 35 10/06/19 20:30 100.8 85 20 92/47 (62) 99 10/06/19 20:15 83 19 92/62 (72) 100 10/06/19 20:12 94 90/46 10/06/19 20:00 87 19 95/46 (62) 100 10/06/19 20:00 Mechanical Ventilator Mechanical Ventilator 10/06/19 20:00 20 95/46 Mechanical Ventilator 35 10/06/19 20:00 35 10/06/19 19:45 87 17 94/59 (71) 100 10/06/19 19:30 95 13 95/59 (71) 100 10/06/19 19:26 96 10/06/19 19:00 16 101/67 Mechanical Ventilator 60 10/06/19 19:00 97 19 100 Mechanical Ventilator 35 98 18 35 10/06/19 19:00 95 16 101/67 (78) 100 10/06/19 18:40 16 109/68 Mechanical Ventilator 60 10/06/19 18:30 112 17 109/68 (82) 100 10/06/19 18:15 129 21 123/64 (83) 100 10/06/19 18:00 129 24 132/74 (93) 100 10/06/19 18:00 16 123/64 Mechanical Ventilator 60 10/06/19 18:00 35 10/06/19 17:51 120/70 10/06/19 17:50 127 125/70 10/06/19 17:30 129 22 128/86 (100) 100 10/06/19 17:00 99.7 128 22 126/72 (90) 100 10/06/19 17:00 16 127/71 Mechanical Ventilator 60 10/06/19 16:53 110 29 35 10/06/19 16:30 118 23 117/64 (81) 100 10/06/19 16:00 114 20 115/67 (83) 100 10/06/19 16:00 114 10/06/19 16:00 Mechanical Ventilator Mechanical Ventilator 10/06/19 16:00 60 10/06/19 16:00 16 123/67 Mechanical Ventilator 60 10/06/19 15:30 111 20 117/65 (82) 100 10/06/19 15:21 115 28 99 Mechanical Ventilator 35 113 26 35 10/06/19 15:00 106 26 112/73 (86) 91 10/06/19 15:00 16 125/95 Mechanical Ventilator 60 10/06/19 14:30 105 24 112/72 (85) 92 10/06/19 14:00 16 111/57 Mechanical Ventilator 60 10/06/19 14:00 112/72 10/06/19 14:00 101 20 109/63 (78) 97 10/06/19 13:49 100 24 35 10/06/19 13:30 105 19 104/68 (80) 100 10/06/19 13:02 17 110/63 Mechanical Ventilator 60 10/06/19 13:00 103 16 110/62 (78) 100 10/06/19 13:00 16 110/62 Mechanical Ventilator 100 10/06/19 12:30 107 18 112/63 (79) 99 10/06/19 12:06 100/60 10/06/19 12:00 Mechanical Ventilator Mechanical Ventilator 10/06/19 12:00 126 10/06/19 12:00 16 100/64 Mechanical Ventilator 60 10/06/19 12:00 126 100/60 10/06/19 12:00 98.9 126 18 98/61 (73) 100 10/06/19 12:00 60 10/06/19 11:30 127 17 104/63 (77) 100 10/06/19 11:00 16 110/59 Mechanical Ventilator 60 10/06/19 11:00 126 19 110/59 (76) 100 10/06/19 10:55 126 25 99 Mechanical Ventilator 35 127 27 35 10/06/19 10:30 114 21 105/64 (78) 98 10/06/19 10:15 99 19 101/79 (86) 97 10/06/19 10:00 16 101/79 Mechanical Ventilator 60 10/06/19 10:00 105 20 98/62 (74) 91 10/06/19 09:45 93 19 83/56 (65) 97 93 10/06/19 09:30 93 19 85/57 (66) 97 93 10/06/19 09:02 93 20 35 10/06/19 09:00 60 10/06/19 09:00 16 91/59 Mechanical Ventilator 60 10/06/19 09:00 85/57 10/06/19 09:00 85/57 10/06/19 09:00 95 85/57 10/06/19 09:00 94 20 88/62 (71) 99 94 10/06/19 08:30 92 18 84/51 (62) 99 92 10/06/19 08:00 95 10/06/19 08:00 100.0 95 19 92/44 (60) 99 95 10/06/19 08:00 16 88/49 Mechanical Ventilator 60 10/06/19 08:00 Mechanical Ventilator Mechanical Ventilator 10/06/19 07:30 95 22 81/57 (65) 97 95 10/06/19 07:01 105 19 99 Mechanical Ventilator 35 102 21 35 10/06/19 07:00 21 93/65 Mechanical Ventilator 60 10/06/19 07:00 96 21 93/65 (74) 96 10/06/19 06:45 108 23 86/49 (61) 95 10/06/19 06:30 112 22 105/55 (72) 94 10/06/19 06:29 110 21 93/55 (68) 94 10/06/19 06:15 124 20 84/70 (75) 94 10/06/19 06:00 24 95/52 Mechanical Ventilator 60 10/06/19 06:00 126 24 95/52 (66) 93 10/06/19 05:45 127 25 98/57 (71) 94 10/06/19 05:40 23 103/53 Mechanical Ventilator 60 10/06/19 05:40 127 103/53 10/06/19 05:30 127 25 103/53 (70) 94 10/06/19 05:15 128 21 94/53 (67) 92 10/06/19 05:10 127 21 35 10/06/19 05:00 26 113/67 Mechanical Ventilator 50 10/06/19 05:00 127 26 113/67 (82) 90 10/06/19 04:45 128 19 99/53 (68) 100 10/06/19 04:45 19 99/53 Mechanical Ventilator 50 10/06/19 04:30 128 25 112/59 (76) 99 10/06/19 04:30 25 112/59 Mechanical Ventilator 50 10/06/19 04:15 128 21 95/52 (66) 100 10/06/19 04:15 21 95/52 Mechanical Ventilator 50 10/06/19 04:00 Mechanical Ventilator Mechanical Ventilator 10/06/19 04:00 50 10/06/19 04:00 22 99/55 Mechanical Ventilator 35 10/06/19 04:00 99.6 128 22 99/54 (69) 100 10/06/19 04:00 128 10/06/19 03:45 128 22 108/55 (72) 100 10/06/19 03:30 129 22 102/58 (73) 100 10/06/19 03:15 129 22 113/59 (77) 100 10/06/19 03:15 22 113/59 Mechanical Ventilator 35 10/06/19 03:00 129 23 100 Mechanical Ventilator 35 128 20 35 10/06/19 03:00 23 121/58 Mechanical Ventilator 35 10/06/19 03:00 130 23 121/58 (79) 100 ROS: No change from my assessment on 10/04/19 HEENT: Orally intubated, Mechanically Ventilated, Thin secretions ET Tube RHYTHM: PVCs, Afib LUNGS: bilateral rhonchi, other - permcath right chest wall CARDIAC: irregularly irregular ABDOMEN: normal bowel sounds, non tender, soft EXTREMITIES: trace edema, other - Right BK amputation. multiple ulcers/wounds Laboratory Tests Test 10/06/19 04:16 10/06/19 04:46 10/06/19 17:54 10/06/19 20:10 White Blood Count 17.1 K/UL (4.8-10.8) H Red Blood Count 3.40 M/UL (4.70-6.10) L Hemoglobin 10.3 G/DL (14.2-18.0) L Hematocrit 33.2 % (42.0-52.0) L Mean Corpuscular Volume 98 FL (80-99) Mean Corpuscular Hemoglobin 30.3 PG (27.0-31.0) Mean Corpuscular Hemoglobin Concent 31.1 G/DL (32.0-36.0) L Red Cell Distribution Width 17.0 % (11.6-14.8) H Platelet Count 164 K/UL (150-450) Mean Platelet Volume 6.2 FL (6.5-10.1) L Neutrophils (%) (Auto) % (45.0-75.0) Lymphocytes (%) (Auto) % (20.0-45.0) Monocytes (%) (Auto) % (1.0-10.0) Eosinophils (%) (Auto) % (0.0-3.0) Basophils (%) (Auto) % (0.0-2.0) Differential Total Cells Counted 100 Neutrophils % (Manual) 83 % (45-75) H Lymphocytes % (Manual) 7 % (20-45) L Monocytes % (Manual) 10 % (1-10) Eosinophils % (Manual) 0 % (0-3) Basophils % (Manual) 0 % (0-2) Band Neutrophils 0 % (0-8) Platelet Estimate Adequate Platelet Morphology Normal Anisocytosis 1+ Activated Partial Thromboplast Time 67 SEC (23-33) H Sodium Level 127 MMOL/L (136-145) L Potassium Level 3.9 MMOL/L (3.5-5.1) Chloride Level 87 MMOL/L (98-107) L Carbon Dioxide Level 22 MMOL/L (21-32) Anion Gap 18 mmol/L (5-15) H Blood Urea Nitrogen 32 mg/dL (7-18) H Creatinine 6.9 MG/DL (0.55-1.30) H Estimat Glomerular Filtration Rate 9.7 mL/min (>60) Glucose Level 203 MG/DL (74-106) #H Calcium Level 6.6 MG/DL (8.5-10.1) L Total Bilirubin 0.4 MG/DL (0.2-1.0) Aspartate Amino Transf (AST/SGOT) 21 U/L (15-37) Alanine Aminotransferase (ALT/SGPT) 22 U/L (12-78) Alkaline Phosphatase 290 U/L (46-116) H Troponin I 0.025 ng/mL (0.000-0.056) Pro-B-Type Natriuretic Peptide > 40806 pg/mL (0-125) H Total Protein 6.4 G/DL (6.4-8.2) Albumin 2.2 G/DL (3.4-5.0) L Globulin 4.2 g/dL Albumin/Globulin Ratio 0.5 (1.0-2.7) L Random Vancomycin Level 18.7 ug/mL Triglycerides Level 104 MG/DL (30-150) POC Whole Blood Glucose 174 MG/DL (74-106) H Pending Assessment/Plan Assessment/Plan Cardiopulmonary arrest Respiratory failure Sepsis with shock ESRD with Permcath Paroxysmal AFib/flutter Ischemic cardiomyopathy - hx CABG Cardiogenic shock PAD - s/p Right BKA IRDM Taper off pressors Antimicrobials Vent support Titrate anti-anginal regimen once off pressors Wound care Continue anti-plt therapy Eloy Ruby MD Oct 07, 2019 02:50
[2019-10-07] MEDS: propofoL 1,000mg/100ml 100 ML IV SCH ×4 (03:02→23:19)
[2019-10-07] MEDS: Ipratropium 0.02% Inh Soln 2.5ml UD HHN SCH ×5 (03:10→19:00)
--- NOTE | 2019-10-07 04:00 | NUR ---
NURSE NOTES: Temp 100.2F, cooling sponge bath given. PTT drawn and sent to lab. NO signs of bleeding anywhere. Oral care performed and suctioned. NAD at this time, remains lightly sedated with RASS score of -2. Levo remains Held for now. Repositioned for comfort. Will continue to monitor.
[2019-10-07 05:02] LABS: HEMATOCRIT 31.9 % (42.0-52.0); HEMOGLOBIN 10.2 G/DL (14.2-18.0); MEAN CORPUSCULAR VOLUME 96 FL (80-99); PLATELET COUNT 141 K/UL (150-450); RED BLOOD COUNT 3.32 M/UL (4.70-6.10); RED CELL DISTRIBUTION WIDTH 16.9 % (11.6-14.8); WHITE BLOOD COUNT 14.9 K/UL (4.8-10.8)
[2019-10-07 05:19] LABS: ANION GAP 12 mmol/L (5-15); BLOOD UREA NITROGEN 28 mg/dL (7-18); CALCIUM 7.2 MG/DL (8.5-10.1); CARBON DIOXIDE 27 MMOL/L (21-32); CHLORIDE 91 MMOL/L (98-107); CREATININE 5.9 MG/DL (0.55-1.30); POTASSIUM 3.5 MMOL/L (3.5-5.1); SODIUM 129 MMOL/L (136-145)
[2019-10-07] MEDS: dilTIAZem HCl 90mg tab ORAL SCH ×4 (05:59→23:18)
[2019-10-07] MEDS: NovoLOG Insulin Flexpen SUBQ SCH ×4 (06:00→20:46)
[2019-10-07] MEDS: Heparin 25,000u/D5W 500ml 500 ML IV SCH ×2 (06:00→22:20)
[2019-10-07] MEDS ORDERED: Heparin 5000 units/ml inj IV SCH (06:00)
--- NOTE | 2019-10-07 06:00 | NUR ---
NURSE NOTES: PTT 54, boluse 3000 units IV, increased by 2 units/kg/hr. Next PTT at 1200.
--- NOTE | 2019-10-07 07:16 | NUR ---
HAND-OFF: Report given to Trisha MCLEOD
--- NOTE | 2019-10-07 07:30 | NUR ---
NURSE NOTES: Patient and report received from SHANI Llanes. Pt is currently sedated RASS score -2 light sedation while on Propofol drip infusing at 25mcg/kg/min. Pt on a Heparin drip infusing at 18units/kg/hr, last PTT 54. Pt is orally intubated, ETT 7.5 at 26cm @ the lipline with vent settings AC16, VT500, Peep 5, FIO2 35%, O2Sat currently 100%. 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 OGT is present, feeds held at this time for weaning. Pt is anuric. Left UA AV shunt is present, bruit/thrill present; however site not being used for dialysis and instead using Right subclavian permacath, dressing dry/intact. Right femoral TLC, patent/intact and connected to IV drips. Right BKA stump and Left foot covered with gauze/dressing. Pt is on pressure release mattress. HOB at 30 degrees, bed locked, three side rails up. Pt also has bilateral soft wrist restraints despite being on Propofol due to pt reaching for ET tube, to prevent self-extubation. Will continue to monitor pt and follow with plan of care per MD orders and protocol.
--- NOTE | 2019-10-07 07:40 | NUR ---
RESPIRATORY NOTE: Pt placed on CPAP 5 PS 8 but failed weaning. RSBI >170-200, low VT 200's, respirations from 16 to 31 right away. Pt was also showing increased WOB. Placed back on AC mode. SHANI Rico aware. Will continue to monitor.
--- NOTE | 2019-10-07 08:00 | NUR ---
NURSE NOTES: RT attempted to wean Pt. Just after a minute, RSBI levels were high. Pt noted to be tachypneic and HR increased. Will lower dose of Propofol and try again later when pt is less sedated.
[2019-10-07] MEDS: Renvela 2400 mg pkt ORAL SCH ×3 (08:15→17:01)
[2019-10-07] MEDS: Aspirin Baby 81mg ORAL SCH (08:16)
[2019-10-07] MEDS: Carvedilol 12.5mg tab ORAL SCH ×2 (08:18→20:48)
[2019-10-07] MEDS: Losartan 50mg tab ORAL SCH (08:20)
--- NOTE | 2019-10-07 08:56 | NUR ---
RD ASSESSMENT & RECOMMENDATIONS SEE CARE ACTIVITY FOR COMPLETE ASSESSMENT DAILY ESTIMATED NEEDS: Needs based on Critical care, wound, ESRD, HD/ 66kg abw 25-30 kcals/kg [id number] total kcals 1.25-2g g protein/kg 82-132 g total protein Fluids per MD NUTRITION DIAGNOSIS: (1) Increased kcal/pro needs R/T wound healing and renal dysfunction as evidenced by admitted w/ multiple wounds, including full thickness wounds @ L Hallux, distal /lateral L foot, plantar aspect of L foot at 3rd and 4th metatarsal heads, and DTPI @ L heel, pt w/ ESRD dx, on HD. (2) Swallowing difficulty R/T respiratory status as evidenced by s/p code blue x 2 (10/02), pt orally intubated, sedated. pressor support held at this time, on oGT feeds. CURRENT TF:Nepro @ 45ml/hr x 22 hrs PO DIET RECOMMENDATIONS: CLINICAL ANALYST eval post extubation -> Renal, CCHO med ENTERAL NUTRITION RECOMMENDATIONS: Nepro @ 47ml/hr x 22 hrs to provide 1034ml, 1861kcal, 84g prot, 752ml free water * W/ hemodynamic stability and WITHOUT Propofol, rec to increase goal rate to 47ml/hr to meet 100% est kcal/prot needs * Hold 1 hr before and after Synthroid med * HOB over 30 degrees/ water flush per MD With Propofol running @ 12.404mL/hr (327kcal per 24 hrs), rec to DECREASE goal rate to 40ml/hr x 22 hrs (880ml, 1584kcal, 71g prot) -> TF + propofol will provide total of 1911 kcal per day -------- Without hemodynamic stability, rec trophic feeding of Nepro @ 5-10ml/hr ADDITIONAL RECOMMENDATIONS: * Monitor hemodynamic stability: NE held at this time * Wound healing: add Nephrovite x 1, ZnSO4 220mg QD x 10 days Vit C dosing per nephbessy NASCIMENTO, Sergio BID * Monitor for continued Propofol use, need to adjust TF rate(see rec above) * Monitor lytes- check phos and mag * Daily calibrated bedscale wt * Monitor BGs closely for hypoglycemia, need to further decrease HS Levemir
--- NOTE | 2019-10-07 09:00 | NUR ---
NURSE NOTES: Tylenol 650mg given for fever of 101.0. Cooling measures initiated. Will continue to monitor.
[2019-10-07] MEDS: Qvar 40mcg Inhaler 6.8 gm INH SCH ×2 (10:00→20:48)
--- NOTE | 2019-10-07 10:30 | NUR ---
NURSE NOTES: Dr Wong at bedside assessing pt. Updated him on pt's current condition. No new orders given at this time.
--- NOTE | 2019-10-07 10:55 | Pulmonology Progress Note ---
Subjective ROS Limited/Unobtainable: Yes Interval Events: None new Constitutional: Reports: no symptoms HEENT: Repors: no symptoms Respiratory: Reports: no symptoms Cardiovascular: Reports: no symptoms Gastrointestinal/Abdominal: Reports: no symptoms Allergies: Coded Allergies: Dust (Verified Allergy, Unknown, 06/06/19) Objective Last 24 Hour Vital Signs Date Time Temp Pulse Resp B/P (MAP) Pulse Ox O2 Delivery O2 Flow Rate FiO2 10/07/19 10:00 102 20 108/55 (72) 100 10/07/19 09:30 107 21 114/55 (74) 100 10/07/19 09:28 100.7 10/07/19 09:15 101 23 108/60 (76) 100 10/07/19 09:00 100 19 103/48 (66) 100 10/07/19 09:00 22 108/60 Mechanical Ventilator 35 10/07/19 08:43 98 19 35 10/07/19 08:30 101.0 96 18 98/51 (67) 100 10/07/19 08:20 99/50 10/07/19 08:18 99/50 10/07/19 08:18 100 99/50 10/07/19 08:00 35 10/07/19 08:00 Mechanical Ventilator Mechanical Ventilator 10/07/19 08:00 16 113/54 Mechanical Ventilator 35 10/07/19 08:00 91 20 98/51 (67) 100 10/07/19 07:40 100 10/07/19 07:24 85 23 100 Mechanical Ventilator 35 93 17 35 10/07/19 07:00 91 20 98/59 (72) 100 10/07/19 07:00 16 98/59 Mechanical Ventilator 35 10/07/19 06:45 92 19 92/49 (63) 100 10/07/19 06:30 86 21 95/44 (61) 100 10/07/19 06:15 85 21 98/50 (66) 100 10/07/19 06:00 82 21 94/52 (66) 100 10/07/19 06:00 16 98/58 Mechanical Ventilator 35 10/07/19 05:59 86 96/46 10/07/19 05:45 86 21 95/46 (62) 100 10/07/19 05:30 86 20 95/50 (65) 100 10/07/19 05:15 86 21 92/49 (63) 100 10/07/19 05:00 16 96/46 Mechanical Ventilator 35 10/07/19 05:00 86 20 96/46 (63) 100 10/07/19 04:57 86 19 35 10/07/19 04:45 86 19 92/43 (59) 100 10/07/19 04:30 86 19 89/44 (59) 100 10/07/19 04:15 86 17 98/43 (61) 100 10/07/19 04:00 100.1 86 18 99/44 (62) 100 10/07/19 04:00 86 10/07/19 04:00 16 99/44 Mechanical Ventilator 35 10/07/19 04:00 35 10/07/19 04:00 Mechanical Ventilator Mechanical Ventilator 10/07/19 03:45 86 17 97/50 (66) 99 10/07/19 03:30 86 16 99/45 (63) 100 10/07/19 03:15 85 15 97/50 (66) 100 10/07/19 03:12 86 19 100 Mechanical Ventilator 35 86 17 35 10/07/19 03:02 20 109/57 Mechanical Ventilator 35 10/07/19 03:00 87 21 104/55 (71) 100 10/07/19 03:00 20 109/57 Mechanical Ventilator 35 10/07/19 03:00 109/57 10/07/19 02:45 85 22 109/57 (74) 92 10/07/19 02:30 85 18 109/48 (68) 94 10/07/19 02:15 86 19 98/43 (61) 97 10/07/19 02:00 20 105/43 Mechanical Ventilator 35 10/07/19 02:00 105/43 10/07/19 02:00 86 20 105/43 (63) 94 10/07/19 01:45 82 19 108/42 (64) 95 10/07/19 01:30 83 20 108/47 (67) 96 10/07/19 01:15 86 20 105/46 (65) 95 10/07/19 01:00 86 20 104/48 (66) 98 10/07/19 01:00 20 105/46 Mechanical Ventilator 35 10/07/19 01:00 105/46 10/07/19 00:50 85 18 35 10/07/19 00:45 86 19 103/46 (65) 97 10/07/19 00:30 86 21 105/44 (64) 95 10/07/19 00:15 85 20 103/43 (63) 98 10/07/19 00:00 20 99/47 Mechanical Ventilator 35 10/07/19 00:00 99/47 10/07/19 00:00 99.5 88 19 101/47 (65) 98 10/07/19 00:00 35 10/07/19 00:00 Mechanical Ventilator Mechanical Ventilator 10/06/19 23:45 88 19 99/47 (64) 95 10/06/19 23:36 85 75/39 10/06/19 23:30 90 21 114/52 (72) 99 10/06/19 23:30 75/39 10/06/19 23:24 102 10/06/19 23:19 83 17 75/39 (51) 100 10/06/19 23:17 85 20 100 Mechanical Ventilator 35 77 17 35 10/06/19 23:17 65 16 59/40 (46) 100 10/06/19 23:15 80 16 69/43 (52) 100 10/06/19 23:00 83 21 91/38 (55) 99 10/06/19 23:00 20 91/38 Mechanical Ventilator 35 10/06/19 22:51 85 20 94/37 (56) 99 10/06/19 22:45 85 21 96/36 (56) 99 10/06/19 22:30 85 18 86/44 (58) 95 10/06/19 22:15 78 20 87/38 (54) 99 10/06/19 22:00 75 19 85/43 (57) 99 10/06/19 22:00 18 85/43 Mechanical Ventilator 35 10/06/19 21:45 74 19 84/38 (53) 99 10/06/19 21:30 76 19 89/40 (56) 98 10/06/19 21:15 80 20 83/35 (51) 99 10/06/19 21:00 16 82/50 Mechanical Ventilator 35 10/06/19 21:00 82 19 82/50 (61) 100 10/06/19 20:45 83 22 87/44 (58) 98 10/06/19 20:40 86 19 35 10/06/19 20:30 100.8 85 20 92/47 (62) 99 8/17/20 20:15 83 19 92/62 (72) 100 10/06/19 20:12 94 90/46 10/06/19 20:00 87 19 95/46 (62) 100 10/06/19 20:00 Mechanical Ventilator Mechanical Ventilator 10/06/19 20:00 20 95/46 Mechanical Ventilator 35 10/06/19 20:00 35 10/06/19 19:45 87 17 94/59 (71) 100 10/06/19 19:30 95 13 95/59 (71) 100 10/06/19 19:26 96 10/06/19 19:00 16 101/67 Mechanical Ventilator 60 10/06/19 19:00 97 19 100 Mechanical Ventilator 35 98 18 35 10/06/19 19:00 95 16 101/67 (78) 100 10/06/19 18:40 16 109/68 Mechanical Ventilator 60 10/06/19 18:30 112 17 109/68 (82) 100 10/06/19 18:15 129 21 123/64 (83) 100 10/06/19 18:00 129 24 132/74 (93) 100 10/06/19 18:00 16 123/64 Mechanical Ventilator 60 10/06/19 18:00 35 10/06/19 17:51 120/70 10/06/19 17:50 127 125/70 10/06/19 17:30 129 22 128/86 (100) 100 10/06/19 17:00 99.7 128 22 126/72 (90) 100 10/06/19 17:00 16 127/71 Mechanical Ventilator 60 10/06/19 16:53 110 29 35 10/06/19 16:30 118 23 117/64 (81) 100 10/06/19 16:00 114 20 115/67 (83) 100 10/06/19 16:00 114 10/06/19 16:00 Mechanical Ventilator Mechanical Ventilator 10/06/19 16:00 60 10/06/19 16:00 16 123/67 Mechanical Ventilator 60 10/06/19 15:30 111 20 117/65 (82) 100 10/06/19 15:21 115 28 99 Mechanical Ventilator 35 113 26 35 10/06/19 15:00 106 26 112/73 (86) 91 10/06/19 15:00 16 125/95 Mechanical Ventilator 60 10/06/19 14:30 105 24 112/72 (85) 92 10/06/19 14:00 16 111/57 Mechanical Ventilator 60 10/06/19 14:00 112/72 10/06/19 14:00 101 20 109/63 (78) 97 10/06/19 13:49 100 24 35 10/06/19 13:30 105 19 104/68 (80) 100 10/06/19 13:02 17 110/63 Mechanical Ventilator 60 10/06/19 13:00 103 16 110/62 (78) 100 10/06/19 13:00 16 110/62 Mechanical Ventilator 100 10/06/19 12:30 107 18 112/63 (79) 99 10/06/19 12:06 100/60 10/06/19 12:00 Mechanical Ventilator Mechanical Ventilator 10/06/19 12:00 126 10/06/19 12:00 16 100/64 Mechanical Ventilator 60 10/06/19 12:00 126 100/60 10/06/19 12:00 98.9 126 18 98/61 (73) 100 10/06/19 12:00 60 10/06/19 11:30 127 17 104/63 (77) 100 10/06/19 11:00 16 110/59 Mechanical Ventilator 60 10/06/19 11:00 126 19 110/59 (76) 100 10/06/19 10:55 126 25 99 Mechanical Ventilator 35 127 27 35 Intake and Output 10/06/19 10/07/19 19:00 07:00 Intake Total 1075.097 ml 1122.940 ml Output Total 2500 ml Balance -1424.903 ml 1122.940 ml Free Water 100 ml IV Total 545.097 ml 477.940 ml Tube Feeding 330 ml 495 ml Other 200 ml 50 ml Output Hemodialysis UF 2500 ml General Appearance: no acute distress HEENT: normocephalic Respiratory: chest wall non-tender, lungs clear Cardiovascular: normal peripheral pulses, normal rate Abdomen: normal bowel sounds Laboratory Tests 10/06/19 17:54: POC Whole Blood Glucose 174H 10/06/19 20:10: POC Whole Blood Glucose [Pending] 10/07/19 04:00: White Blood Count 14.9H, Red Blood Count 3.32L, Hemoglobin 10.2L, Hematocrit 31.9L, Mean Corpuscular Volume 96, Mean Corpuscular Hemoglobin 30.7, Mean Corpuscular Hemoglobin Concent 32.0, Red Cell Distribution Width 16.9H, Platelet Count 141L, Mean Platelet Volume 5.9L, Neutrophils (%) (Auto) , Lymphocytes (%) (Auto) , Monocytes (%) (Auto) , Eosinophils (%) (Auto) , Basophils (%) (Auto) , Differential Total Cells Counted 100, Neutrophils % ( Manual) 87H, Lymphocytes % (Manual) 7L, Monocytes % (Manual) 4, Eosinophils % ( Manual) 2, Basophils % (Manual) 0, Band Neutrophils 0, Platelet Estimate DecreasedL, Platelet Morphology Normal, Hypochromasia 1+, Anisocytosis 1+, Activated Partial Thromboplast Time 54H, Sodium Level 129L, Potassium Level 3.5 , Chloride Level 91L, Carbon Dioxide Level 27, Anion Gap 12, Blood Urea Nitrogen 28H, Creatinine 5.9H, Estimat Glomerular Filtration Rate 11.6, Glucose Level 142H, Calcium Level 7.2L Current Medications Medications (Trade) Dose Ordered Sig/Monica Route PRN Reason Start Time Stop Time Status Last Admin Dose Admin Acetaminophen (Tylenol) 650 mg Q4H PRN ORAL Mild Pain (Pain Scale 1-3) 10/03/19 14:00 11/01/19 13:59 10/05/19 09:51 Acetaminophen (Tylenol) 650 mg Q4H PRN ORAL Temp >100.5 10/03/19 14:00 11/01/19 13:59 10/07/19 08:58 Aspirin (ASA) 81 mg DAILY ORAL 10/04/19 09:00 11/17/19 08:59 10/07/19 08:16 Atorvastatin Calcium (Lipitor) 20 mg BEDTIME ORAL 10/03/19 21:00 12/31/19 20:59 10/06/19 20:11 Beclomethasone Dipropionate (Qvar 40 Inhaler) 1 puff BIDRT INH 10/03/19 22:00 11/02/19 21:59 Carvedilol (Coreg) 37.5 mg EVERY 12 HOURS ORAL 10/03/19 21:00 11/01/19 20:59 Cefepime HCl 500 mg/Dextrose 55 ml @ 110 mls/hr Q24H IV 10/06/19 12:00 10/13/19 11:59 10/06/19 14:50 Chlorhexidine Gluconate (Dina-Hex 2%) 1 applic DAILY@1999 TOPIC 10/03/19 20:00 01/01/20 19:59 10/06/19 20:11 Collagenase (Santyl) 1 applic DAILY TOPIC 10/03/19 15:00 01/01/20 14:59 10/07/19 08:18 Dextrose (Dextrose 50%) 25 ml Q30M PRN IV Hypoglycemia 10/03/19 14:15 12/31/19 20:14 10/05/19 10:21 Dextrose (Dextrose 50%) 50 ml Q30M PRN IV Hypoglycemia 10/03/19 14:15 12/31/19 20:14 10/05/19 05:31 Diltiazem HCl (Cardizem Tab) 90 mg Q6HR ORAL 10/03/19 18:00 11/01/19 20:14 10/06/19 17:50 Diphenhydramine HCl (Benadryl) 25 mg Q6H PRN ORAL Itching/Pruritis 10/03/19 14:15 11/01/19 20:14 Diphenoxylate HCl/ Atropine (Lomotil) 2.5 mg Q4H PRN ORAL Diarrhea 10/03/19 14:00 11/01/19 13:59 Heparin Sodium/ Dextrose 500 ml @ 32.332 mls/ hr ADJUST PER PROTOCOL IV 10/07/19 06:00 11/06/19 05:59 10/07/19 06:00 Hydromorphone HCl (Dilaudid) 2 mg Q4H PRN IVP For Pain (4-10) 10/03/19 14:00 10/10/19 01:59 Insulin Aspart (NovoLOG) BEFORE MEALS AND HS SUBQ 10/03/19 16:30 12/31/19 20:59 10/07/19 06:00 Insulin Detemir (Levemir) 22 units BEDTIME SUBQ 10/06/19 21:00 01/04/20 20:59 10/06/19 20:13 Ipratropium [place] (Atrovent) 0.5 mcg Q4HRT HHN 10/03/19 15:00 10/07/19 22:59 10/07/19 07:24 Isosorbide Dinitrate (Isordil) 10 mg THREE TIMES A DAY ORAL 10/03/19 18:00 11/01/19 20:14 10/04/19 18:31 Levothyroxine Sodium (Synthroid) 75 mcg ACBREAKFAST ORAL 10/04/19 06:30 11/03/19 06:29 10/07/19 05:58 Lorazepam (Ativan 2mg/ml 1ml) 1 mg Q3H PRN IV For Anxiety 10/03/19 14:00 10/10/19 13:59 Losartan Potassium (Cozaar) 100 mg DAILY ORAL 10/04/19 09:00 11/02/19 08:59 Mupirocin (Bactroban Oint) 1 applic THREE TIMES A DAY TOPIC 10/03/19 15:00 10/08/19 14:59 10/07/19 08:16 Nitroglycerin (Ntg) 0.4 mg Q5M PRN SL Prn Chest Pain 10/03/19 13:50 11/01/19 20:14 Norepinephrine Bitartrate 8 mg/ Dextrose 250 ml @ 0 mls/hr Q24H IV 10/03/19 14:00 11/02/19 13:59 10/06/19 23:30 Ondansetron HCl (Zofran) 4 mg Q6H PRN IVP Nausea & Vomiting 10/03/19 14:00 11/01/19 13:59 Polyethylene Glycol (Miralax) 17 gm DAILYPRN PRN ORAL Constipation 10/03/19 14:00 11/01/19 13:59 Propofol 100 ml @ 0 mls/hr Q12H IV 10/05/19 14:00 10/07/19 13:59 10/07/19 03:02 Sevelamer Carbonate (Renvela) 2,400 mg THREE TIMES A DAY ORAL 10/06/19 18:00 01/04/20 17:59 10/07/19 08:15 Vancomycin HCl (Vanco pharmacy to dose) 1 ea DAILY PRN MISC Per rx protocol 10/05/19 11:15 11/04/19 11:14 Assessment/Plan Assessment/Plan IMPRESSION: 1. ESRD, on dialysis. 2. Pulmonary edema. 3. Cardiac arrhythmias with A-flutter/AFib. 4. Status post cardiopulmonary arrest. 5. Respiratory failure 6. Previous right BKA. DISCUSSION: Continue current Ventilator settings, wean as tolerated weaning to begin today Lighten sedation PPX HD per Nephrology Cardiology following. Ming Wong MD Oct 07, 2019 10:55
--- NOTE | 2019-10-07 12:00 | NUR ---
NURSE NOTES: PTT drawn and given to maxillofacial pathology to bring down to the lab. BS: 67. Pt asymptomatic. 120mL of [place] juice given. Will repeat F/S in 30 mins.
[2019-10-07] MEDS ORDERED: CARVEDILOL25 MG ORAL (12:08)
[2019-10-07] MEDS: Cefepime HCl 500 MG in D5W 55 ML IV SCH (12:12)
[2019-10-07] MEDS ORDERED: AMBIEN5 MG ORAL (12:13)
[2019-10-07] MEDS ORDERED: COLLAGENASE1 EACH TP (12:19)
[2019-10-07] MEDS ORDERED: MUPIROCIN22 GM TOPIC (12:19)
--- NOTE | 2019-10-07 12:25 | NUR ---
NURSE NOTES: RT attempted to wean again at a lower Propofol dose. Pt failed weaning once again as his RSBI level was high.
--- NOTE | 2019-10-07 12:28 | NUR ---
RESPIRATORY NOTE: Attempted to wean patient again with CPAP 5 and PS 8. Patient could not trigger a breath so vent went into Apnea mode. Placed immediately back on AC
--- NOTE | 2019-10-07 12:35 | NUR ---
NURSE NOTES: BS rechecked= 72mg/dL. Tube feeds resumed @ 45mL/hr after weaning attempt. No further action required.
--- NOTE | 2019-10-07 12:37 | Nephrology Progress Note ---
Assessment/Plan Problem List: (1) Ulcer of leg due to secondary diabetes (2) Cardiopulmonary arrest (3) CHF (congestive heart failure) (4) Bilateral pleural effusion (5) Diabetes (6) Anemia in chronic kidney disease (7) Atrial flutter (8) End-stage renal disease (9) Osteomyelitis of ankle or foot, left, acute Plan levophed now off, low -normal bp, glu and insulin adjusted, start nephro tube feed, fever and leg wounds, possible osteo--confirmed by xray, , start vanco and cefepime, HD 10/05 UF-2.5L all icu orders reviewed Subjective ROS Limited/Unobtainable: Yes Objective Objective Last 24 Hour Vital Signs Date Time Temp Pulse Resp B/P (MAP) Pulse Ox O2 Delivery O2 Flow Rate FiO2 10/07/19 12:06 99/52 10/07/19 12:00 80 99/52 10/07/19 11:01 89 24 100 Mechanical Ventilator 35 99 18 35 10/07/19 11:00 16 104/58 Mechanical Ventilator 35 10/07/19 11:00 101 28 107/63 (78) 99 10/07/19 10:30 102 19 99/49 (66) 100 10/07/19 10:00 102 20 108/55 (72) 100 10/07/19 09:30 107 21 114/55 (74) 100 10/07/19 09:28 100.7 10/07/19 09:15 101 23 108/60 (76) 100 10/07/19 09:00 100 19 103/48 (66) 100 10/07/19 09:00 22 108/60 Mechanical Ventilator 35 10/07/19 08:43 98 19 35 10/07/19 08:30 101.0 96 18 98/51 (67) 100 10/07/19 08:20 99/50 10/07/19 08:18 99/50 10/07/19 08:18 100 99/50 10/07/19 08:00 35 10/07/19 08:00 Mechanical Ventilator Mechanical Ventilator 10/07/19 08:00 91 10/07/19 08:00 16 113/54 Mechanical Ventilator 35 10/07/19 08:00 91 20 98/51 (67) 100 10/07/19 07:40 100 10/07/19 07:24 85 23 100 Mechanical Ventilator 35 93 17 35 8/18/20 07:00 91 20 98/59 (72) 100 10/07/19 07:00 16 98/59 Mechanical Ventilator 35 10/07/19 06:45 92 19 92/49 (63) 100 10/07/19 06:30 86 21 95/44 (61) 100 10/07/19 06:15 85 21 98/50 (66) 100 10/07/19 06:00 82 21 94/52 (66) 100 10/07/19 06:00 16 98/58 Mechanical Ventilator 35 10/07/19 05:59 86 96/46 10/07/19 05:45 86 21 95/46 (62) 100 10/07/19 05:30 86 20 95/50 (65) 100 10/07/19 05:15 86 21 92/49 (63) 100 10/07/19 05:00 16 96/46 Mechanical Ventilator 35 10/07/19 05:00 86 20 96/46 (63) 100 10/07/19 04:57 86 19 35 10/07/19 04:45 86 19 92/43 (59) 100 10/07/19 04:30 86 19 89/44 (59) 100 10/07/19 04:15 86 17 98/43 (61) 100 10/07/19 04:00 100.1 86 18 99/44 (62) 100 10/07/19 04:00 86 10/07/19 04:00 16 99/44 Mechanical Ventilator 35 10/07/19 04:00 35 10/07/19 04:00 Mechanical Ventilator Mechanical Ventilator 10/07/19 03:45 86 17 97/50 (66) 99 10/07/19 03:30 86 16 99/45 (63) 100 10/07/19 03:15 85 15 97/50 (66) 100 10/07/19 03:12 86 19 100 Mechanical Ventilator 35 86 17 35 10/07/19 03:02 20 109/57 Mechanical Ventilator 35 10/07/19 03:00 87 21 104/55 (71) 100 10/07/19 03:00 20 109/57 Mechanical Ventilator 35 10/07/19 03:00 109/57 10/07/19 02:45 85 22 109/57 (74) 92 10/07/19 02:30 85 18 109/48 (68) 94 10/07/19 02:15 86 19 98/43 (61) 97 10/07/19 02:00 20 105/43 Mechanical Ventilator 35 10/07/19 02:00 105/43 10/07/19 02:00 86 20 105/43 (63) 94 10/07/19 01:45 82 19 108/42 (64) 95 10/07/19 01:30 83 20 108/47 (67) 96 10/07/19 01:15 86 20 105/46 (65) 95 10/07/19 01:00 86 20 104/48 (66) 98 10/07/19 01:00 20 105/46 Mechanical Ventilator 35 10/07/19 01:00 105/46 10/07/19 00:50 85 18 35 10/07/19 00:45 86 19 103/46 (65) 97 10/07/19 00:30 86 21 105/44 (64) 95 10/07/19 00:15 85 20 103/43 (63) 98 10/07/19 00:00 20 99/47 Mechanical Ventilator 35 10/07/19 00:00 99/47 10/07/19 00:00 99.5 88 19 101/47 (65) 98 10/07/19 00:00 35 10/07/19 00:00 Mechanical Ventilator Mechanical Ventilator 10/06/19 23:45 88 19 99/47 (64) 95 10/06/19 23:36 85 75/39 10/06/19 23:30 90 21 114/52 (72) 99 10/06/19 23:30 75/39 10/06/19 23:24 102 10/06/19 23:19 83 17 75/39 (51) 100 10/06/19 23:17 85 20 100 Mechanical Ventilator 35 77 17 35 10/06/19 23:17 65 16 59/40 (46) 100 10/06/19 23:15 80 16 69/43 (52) 100 10/06/19 23:00 83 21 91/38 (55) 99 10/06/19 23:00 20 91/38 Mechanical Ventilator 35 10/06/19 22:51 85 20 94/37 (56) 99 10/06/19 22:45 85 21 96/36 (56) 99 10/06/19 22:30 85 18 86/44 (58) 95 10/06/19 22:15 78 20 87/38 (54) 99 10/06/19 22:00 75 19 85/43 (57) 99 10/06/19 22:00 18 85/43 Mechanical Ventilator 35 10/06/19 21:45 74 19 84/38 (53) 99 10/06/19 21:30 76 19 89/40 (56) 98 10/06/19 21:15 80 20 83/35 (51) 99 10/06/19 21:00 16 82/50 Mechanical Ventilator 35 10/06/19 21:00 82 19 82/50 (61) 100 10/06/19 20:45 83 22 87/44 (58) 98 10/06/19 20:40 86 19 35 10/06/19 20:30 100.8 85 20 92/47 (62) 99 10/06/19 20:15 83 19 92/62 (72) 100 10/06/19 20:12 94 90/46 10/06/19 20:00 87 19 95/46 (62) 100 10/06/19 20:00 Mechanical Ventilator Mechanical Ventilator 10/06/19 20:00 20 95/46 Mechanical Ventilator 35 10/06/19 20:00 35 10/06/19 19:45 87 17 94/59 (71) 100 10/06/19 19:30 95 13 95/59 (71) 100 10/06/19 19:26 96 10/06/19 19:00 16 101/67 Mechanical Ventilator 60 10/06/19 19:00 97 19 100 Mechanical Ventilator 35 98 18 35 10/06/19 19:00 95 16 101/67 (78) 100 10/06/19 18:40 16 109/68 Mechanical Ventilator 60 10/06/19 18:30 112 17 109/68 (82) 100 10/06/19 18:15 129 21 123/64 (83) 100 10/06/19 18:00 129 24 132/74 (93) 100 10/06/19 18:00 16 123/64 Mechanical Ventilator 60 10/06/19 18:00 35 10/06/19 17:51 120/70 10/06/19 17:50 127 125/70 10/06/19 17:30 129 22 128/86 (100) 100 10/06/19 17:00 99.7 128 22 126/72 (90) 100 10/06/19 17:00 16 127/71 Mechanical Ventilator 60 10/06/19 16:53 110 29 35 10/06/19 16:30 118 23 117/64 (81) 100 10/06/19 16:00 114 20 115/67 (83) 100 10/06/19 16:00 114 10/06/19 16:00 Mechanical Ventilator Mechanical Ventilator 10/06/19 16:00 60 10/06/19 16:00 16 123/67 Mechanical Ventilator 60 10/06/19 15:30 111 20 117/65 (82) 100 10/06/19 15:21 115 28 99 Mechanical Ventilator 35 113 26 35 10/06/19 15:00 106 26 112/73 (86) 91 10/06/19 15:00 16 125/95 Mechanical Ventilator 60 10/06/19 14:30 105 24 112/72 (85) 92 10/06/19 14:00 16 111/57 Mechanical Ventilator 60 10/06/19 14:00 112/72 10/06/19 14:00 101 20 109/63 (78) 97 10/06/19 13:49 100 24 35 10/06/19 13:30 105 19 104/68 (80) 100 10/06/19 13:02 17 110/63 Mechanical Ventilator 60 10/06/19 13:00 103 16 110/62 (78) 100 10/06/19 13:00 16 110/62 Mechanical Ventilator 100 Intake and Output 10/06/19 10/07/19 19:00 07:00 Intake Total 1075.097 ml 1122.940 ml Output Total 2500 ml Balance -1424.903 ml 1122.940 ml Free Water 100 ml IV Total 545.097 ml 477.940 ml Tube Feeding 330 ml 495 ml Other 200 ml 50 ml Output Hemodialysis UF 2500 ml Laboratory Tests 10/06/19 17:54: POC Whole Blood Glucose 174H 10/06/19 20:10: POC Whole Blood Glucose [Pending] 10/07/19 04:00: White Blood Count 14.9H, Red Blood Count 3.32L, Hemoglobin 10.2L, Hematocrit 31.9L, Mean Corpuscular Volume 96, Mean Corpuscular Hemoglobin 30.7, Mean Corpuscular Hemoglobin Concent 32.0, Red Cell Distribution Width 16.9H, Platelet Count 141L, Mean Platelet Volume 5.9L, Neutrophils (%) (Auto) , Lymphocytes (%) (Auto) , Monocytes (%) (Auto) , Eosinophils (%) (Auto) , Basophils (%) (Auto) , Differential Total Cells Counted 100, Neutrophils % ( Manual) 87H, Lymphocytes % (Manual) 7L, Monocytes % (Manual) 4, Eosinophils % ( Manual) 2, Basophils % (Manual) 0, Band Neutrophils 0, Platelet Estimate DecreasedL, Platelet Morphology Normal, Hypochromasia 1+, Anisocytosis 1+, Activated Partial Thromboplast Time 54H, Sodium Level 129L, Potassium Level 3.5 , Chloride Level 91L, Carbon Dioxide Level 27, Anion Gap 12, Blood Urea Nitrogen 28H, Creatinine 5.9H, Estimat Glomerular Filtration Rate 11.6, Glucose Level 142H, Calcium Level 7.2L 10/07/19 11:53: POC Whole Blood Glucose 67L 10/07/19 12:00: Activated Partial Thromboplast Time [Pending] Height (Feet): 5 Height (Inches): 6.00 Weight (Pounds): 175 General Appearance: other - sedated on vent Neck: normal alignment Cardiovascular: regularly irregular Respiratory/Chest: rhonchi - bilaterally Abdomen: soft, no organomegaly Extremities: trace edema Neurologic: unresponsive Smith Tidwell MD Oct 07, 2019 12:37
--- NOTE | 2019-10-07 12:42 | NUR ---
NURSE NOTES: Spoke to Ian @ [facility] Nephrology ([phone]) to schedule HD for tomorrow, as ordered by Dr. Tidwell.
[2019-10-07] MEDS ORDERED: Sterile Water Irrig 1000ml IRRIG ONE (13:05)
[2019-10-07] MEDS ORDERED: Sodium Bicarbonate 50ml Carp ONE (13:31)
--- NOTE | 2019-10-07 14:00 | NUR ---
NURSE NOTES: Pt turned and repositioned for comfort. Pt remains on Heparin @ 18units/hr, with new PTT to be drawn in the morning 10/07. Pt also remains on Propofol 25mcg/kg/min, lightly sedated, Rass -2.
--- NOTE | 2019-10-07 15:16 | Surgery Progress Note ---
Surgery Progress Note Subjective Additional Comments leukocytosis trending down labs reviewed exam stable on support weaning Objective Last 24 Hour Vital Signs Date Time Temp Pulse Resp B/P (MAP) Pulse Ox O2 Delivery O2 Flow Rate FiO2 10/07/19 15:06 93 17 100 Mechanical Ventilator 35 96 18 35 10/07/19 15:00 100 17 103/66 (78) 100 10/07/19 15:00 16 103/66 Mechanical Ventilator 35 10/07/19 14:46 16 114/72 Mechanical Ventilator 35 10/07/19 14:30 94 17 114/72 (86) 100 10/07/19 14:00 90 16 101/51 (68) 100 10/07/19 14:00 16 105/55 Mechanical Ventilator 35 10/07/19 13:30 91 16 106/65 (79) 100 10/07/19 13:02 104 16 35 10/07/19 13:00 99 15 108/66 (80) 100 10/07/19 13:00 16 108/66 Mechanical Ventilator 35 10/07/19 12:30 87 16 110/55 (73) 100 10/07/19 12:06 99/52 10/07/19 12:00 Mechanical Ventilator Mechanical Ventilator 10/07/19 12:00 99.0 89 16 99/52 (68) 100 10/07/19 12:00 89 10/07/19 12:00 16 106/50 Mechanical Ventilator 35 10/07/19 12:00 80 99/52 10/07/19 12:00 35 10/07/19 11:30 94 17 112/62 (79) 100 10/07/19 11:01 89 24 100 Mechanical Ventilator 35 99 18 35 10/07/19 11:00 16 104/58 Mechanical Ventilator 35 10/07/19 11:00 101 28 107/63 (78) 99 10/07/19 10:30 102 19 99/49 (66) 100 10/07/19 10:00 16 99/55 Mechanical Ventilator 35 10/07/19 10:00 102 20 108/55 (72) 100 10/07/19 09:30 107 21 114/55 (74) 100 10/07/19 09:28 100.7 10/07/19 09:15 101 23 108/60 (76) 100 10/07/19 09:00 100 19 103/48 (66) 100 10/07/19 09:00 22 108/60 Mechanical Ventilator 35 10/07/19 08:43 98 19 35 10/07/19 08:30 101.0 96 18 98/51 (67) 100 10/07/19 08:20 99/50 10/07/19 08:18 99/50 10/07/19 08:18 100 99/50 10/07/19 08:00 35 10/07/19 08:00 Mechanical Ventilator Mechanical Ventilator 10/07/19 08:00 91 10/07/19 08:00 16 113/54 Mechanical Ventilator 35 10/07/19 08:00 91 20 98/51 (67) 100 10/07/19 07:40 100 10/07/19 07:24 85 23 100 Mechanical Ventilator 35 93 17 35 10/07/19 07:00 91 20 98/59 (72) 100 10/07/19 07:00 16 98/59 Mechanical Ventilator 35 10/07/19 06:45 92 19 92/49 (63) 100 10/07/19 06:30 86 21 95/44 (61) 100 10/07/19 06:15 85 21 98/50 (66) 100 10/07/19 06:00 82 21 94/52 (66) 100 10/07/19 06:00 16 98/58 Mechanical Ventilator 35 10/07/19 05:59 86 96/46 10/07/19 05:45 86 21 95/46 (62) 100 10/07/19 05:30 86 20 95/50 (65) 100 10/07/19 05:15 86 21 92/49 (63) 100 10/07/19 05:00 16 96/46 Mechanical Ventilator 35 10/07/19 05:00 86 20 96/46 (63) 100 10/07/19 04:57 86 19 35 10/07/19 04:45 86 19 92/43 (59) 100 10/07/19 04:30 86 19 89/44 (59) 100 10/07/19 04:15 86 17 98/43 (61) 100 10/07/19 04:00 100.1 86 18 99/44 (62) 100 10/07/19 04:00 86 10/07/19 04:00 16 99/44 Mechanical Ventilator 35 10/07/19 04:00 35 10/07/19 04:00 Mechanical Ventilator Mechanical Ventilator 10/07/19 03:45 86 17 97/50 (66) 99 10/07/19 03:30 86 16 99/45 (63) 100 10/07/19 03:15 85 15 97/50 (66) 100 10/07/19 03:12 86 19 100 Mechanical Ventilator 35 86 17 35 10/07/19 03:02 20 109/57 Mechanical Ventilator 35 10/07/19 03:00 87 21 104/55 (71) 100 10/07/19 03:00 20 109/57 Mechanical Ventilator 35 10/07/19 03:00 109/57 10/07/19 02:45 85 22 109/57 (74) 92 10/07/19 02:30 85 18 109/48 (68) 94 10/07/19 02:15 86 19 98/43 (61) 97 10/07/19 02:00 20 105/43 Mechanical Ventilator 35 10/07/19 02:00 105/43 10/07/19 02:00 86 20 105/43 (63) 94 10/07/19 01:45 82 19 108/42 (64) 95 10/07/19 01:30 83 20 108/47 (67) 96 10/07/19 01:15 86 20 105/46 (65) 95 10/07/19 01:00 86 20 104/48 (66) 98 10/07/19 01:00 20 105/46 Mechanical Ventilator 35 10/07/19 01:00 105/46 10/07/19 00:50 85 18 35 10/07/19 00:45 86 19 103/46 (65) 97 10/07/19 00:30 86 21 105/44 (64) 95 10/07/19 00:15 85 20 103/43 (63) 98 10/07/19 00:00 20 99/47 Mechanical Ventilator 35 10/07/19 00:00 99/47 10/07/19 00:00 99.5 88 19 101/47 (65) 98 10/07/19 00:00 35 10/07/19 00:00 Mechanical Ventilator Mechanical Ventilator 10/06/19 23:45 88 19 99/47 (64) 95 10/06/19 23:36 85 75/39 10/06/19 23:30 90 21 114/52 (72) 99 10/06/19 23:30 75/39 10/06/19 23:24 102 10/06/19 23:19 83 17 75/39 (51) 100 10/06/19 23:17 85 20 100 Mechanical Ventilator 35 77 17 35 10/06/19 23:17 65 16 59/40 (46) 100 10/06/19 23:15 80 16 69/43 (52) 100 10/06/19 23:00 83 21 91/38 (55) 99 10/06/19 23:00 20 91/38 Mechanical Ventilator 35 10/06/19 22:51 85 20 94/37 (56) 99 10/06/19 22:45 85 21 96/36 (56) 99 10/06/19 22:30 85 18 86/44 (58) 95 10/06/19 22:15 78 20 87/38 (54) 99 10/06/19 22:00 75 19 85/43 (57) 99 10/06/19 22:00 18 85/43 Mechanical Ventilator 35 10/06/19 21:45 74 19 84/38 (53) 99 10/06/19 21:30 76 19 89/40 (56) 98 10/06/19 21:15 80 20 83/35 (51) 99 10/06/19 21:00 16 82/50 Mechanical Ventilator 35 10/06/19 21:00 82 19 82/50 (61) 100 10/06/19 20:45 83 22 87/44 (58) 98 10/06/19 20:40 86 19 35 10/06/19 20:30 100.8 85 20 92/47 (62) 99 10/06/19 20:15 83 19 92/62 (72) 100 10/06/19 20:12 94 90/46 10/06/19 20:00 87 19 95/46 (62) 100 10/06/19 20:00 Mechanical Ventilator Mechanical Ventilator 10/06/19 20:00 20 95/46 Mechanical Ventilator 35 10/06/19 20:00 35 10/06/19 19:45 87 17 94/59 (71) 100 10/06/19 19:30 95 13 95/59 (71) 100 10/06/19 19:26 96 10/06/19 19:00 16 101/67 Mechanical Ventilator 60 10/06/19 19:00 97 19 100 Mechanical Ventilator 35 98 18 35 10/06/19 19:00 95 16 101/67 (78) 100 10/06/19 18:40 16 109/68 Mechanical Ventilator 60 10/06/19 18:30 112 17 109/68 (82) 100 10/06/19 18:15 129 21 123/64 (83) 100 10/06/19 18:00 129 24 132/74 (93) 100 10/06/19 18:00 16 123/64 Mechanical Ventilator 60 10/06/19 18:00 35 10/06/19 17:51 120/70 10/06/19 17:50 127 125/70 10/06/19 17:30 129 22 128/86 (100) 100 10/06/19 17:00 99.7 128 22 126/72 (90) 100 10/06/19 17:00 16 127/71 Mechanical Ventilator 60 10/06/19 16:53 110 29 35 10/06/19 16:30 118 23 117/64 (81) 100 10/06/19 16:00 114 20 115/67 (83) 100 10/06/19 16:00 114 10/06/19 16:00 Mechanical Ventilator Mechanical Ventilator 10/06/19 16:00 60 10/06/19 16:00 16 123/67 Mechanical Ventilator 60 10/06/19 15:30 111 20 117/65 (82) 100 10/06/19 15:21 115 28 99 Mechanical Ventilator 35 113 26 35 I&O Intake and Output 10/06/19 10/07/19 19:00 07:00 Intake Total 1075.097 ml 1122.940 ml Output Total 2500 ml Balance -1424.903 ml 1122.940 ml Free Water 100 ml IV Total 545.097 ml 477.940 ml Tube Feeding 330 ml 495 ml Other 200 ml 50 ml Output Hemodialysis UF 2500 ml Dressing: other Wound: other Drains: other Cardiovascular: RSR Respiratory: decreased breath sounds Abdomen: soft, non-tender, present bowel sounds Extremities: edema, no cyanosis Laboratory Tests Test 10/06/19 17:54 10/06/19 20:10 10/07/19 04:00 10/07/19 11:53 POC Whole Blood Glucose 174 MG/DL (74-106) H Pending 67 MG/DL (74-106) L White Blood Count 14.9 K/UL (4.8-10.8) H Red Blood Count 3.32 M/UL (4.70-6.10) L Hemoglobin 10.2 G/DL (14.2-18.0) L Hematocrit 31.9 % (42.0-52.0) L Mean Corpuscular Volume 96 FL (80-99) Mean Corpuscular Hemoglobin 30.7 PG (27.0-31.0) Mean Corpuscular Hemoglobin Concent 32.0 G/DL (32.0-36.0) Red Cell Distribution Width 16.9 % (11.6-14.8) H Platelet Count 141 K/UL (150-450) L Mean Platelet Volume 5.9 FL (6.5-10.1) L Neutrophils (%) (Auto) % (45.0-75.0) Lymphocytes (%) (Auto) % (20.0-45.0) Monocytes (%) (Auto) % (1.0-10.0) Eosinophils (%) (Auto) % (0.0-3.0) Basophils (%) (Auto) % (0.0-2.0) Differential Total Cells Counted 100 Neutrophils % (Manual) 87 % (45-75) H Lymphocytes % (Manual) 7 % (20-45) L Monocytes % (Manual) 4 % (1-10) Eosinophils % (Manual) 2 % (0-3) Basophils % (Manual) 0 % (0-2) Band Neutrophils 0 % (0-8) Platelet Estimate Decreased L Platelet Morphology Normal Hypochromasia 1+ Anisocytosis 1+ Activated Partial Thromboplast Time 54 SEC (23-33) H Sodium Level 129 MMOL/L (136-145) L Potassium Level 3.5 MMOL/L (3.5-5.1) Chloride Level 91 MMOL/L (98-107) L Carbon Dioxide Level 27 MMOL/L (21-32) Anion Gap 12 mmol/L (5-15) Blood Urea Nitrogen 28 mg/dL (7-18) H Creatinine 5.9 MG/DL (0.55-1.30) H Estimat Glomerular Filtration Rate 11.6 mL/min (>60) Glucose Level 142 MG/DL (74-106) H Calcium Level 7.2 MG/DL (8.5-10.1) L Test 10/07/19 12:00 Activated Partial Thromboplast Time 70 SEC (23-33) H Plan Problems: (1) Cardiopulmonary arrest Assessment & Plan: in ICU on support weaning labs noted cont current care Assessment of pt's skin limited as pt is stable at present to be turned in bed. Generalized edemae noted. Shaft of penis is swollen,erythematous and oozing small amt purulent exudate from meatus. At head of Penis is an irregular shaped wound with 100% slough at base of wound(L)3cm x (W)2.5cm. Edges are erythematous with surrounding erythema shaft. Laterally, but in close proximity is small pustule(L)0.5cm x (W)0.4cm.Along foreskin is erythematous and swollen. 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 No surrounding erythema or evidence of further skin breakdown noted. L Lower ext noted to have very snugged sharee wrap which was removed. Xerosis skin with Haemosiderin deposits noted to LLE. LLE washed and moisturized to better assess wounds. Two areas of dry pink epithelial noted to dorsal and lateral L tibia. Linear Dry eschar noted to posterior L Knee (L)1.2cm x (W)9.5cm. No surrounding erythema or induration noted. Full thickness wound L Hallux(L)3cm x (W)2.5cm.Base of wound is 100% yellow slough. Margins are erythematous. Periwound is dark and indurated. Wound is malodorous. No exudate noted. L 5th TMA noted. At distal /lateral L foot is a Full Thickness wound(L)2cm x (W) 2.5cm. Base of wound is 80% mixed slough and eschar,20% carol. Edges are macerated. Small amt seropurulent exudate noted. Wound is malodorous. At Plantar aspect of L foot at 3rd and 4th metatarsal heads is a full thickness wound that is malodorous. (L)1.5cm x (W)1cm. Base of wound is mixed soft necrosis and slough. Small amt seropurulent exudate noted. Periwound skin is callused but no erythema noted. DTPI noted to L heel (L)3.1cm x (W)2cm. Base of injury is purpuric and fluctuant. Surrounding areas of L heel is boggy without erythema. Hyperpigmentation from previous wound noted to medial L malleolus. Will plan to assess Back and sacral area when pt is stable to be turned. Tx.Plan:Cleanse wound Penis with Saline. Apply Nickel thick layer of Santyl with saline moistened 2x2 gauze Daily and prn. Apply Bactroban to wounds on Penis TID as directed by . Cleanse Wounds L Foot with Saline. Apply Nickel Thick layer Santyl. Apply Saline moistened gauze to each wound. Cover with ABD pad. Wrap with Kerlix Daily and prn. Apply Cavilon Skin Barrier to posterior L Knee Daily and prn. Moisturize dry skin LLE daily with each drsg changes. Apply Cavilon Skin Barrier to L Heel daily. Apply Cavilon Skin Barrier to base of R BKA Stump. Cover with ABD Pad. Wrap with Kerlix every 3 days and prn. Apply Moisture Barrier Paste to sacrum. Cover with Optifoam drsg. Change every 3 days and prn. Reposition at least every 2hours or as tolerated. Off-load L Heel with Pillow. Off-load L BKA with Pillow. APM/NATHALY Mattress overlay. (2) Bilateral pleural effusion Assessment & Plan: Interim endotracheal intubation, endotracheal tube tip in good position projecting approximately 7 cm above the ravinder. Interim placement of an orogastric tube, tip of which projects beyond the edge of the image, position therefore indeterminate. Right jugular dialysis catheter is again demonstrated. Large right pleural effusion, mild interstitial edema bilaterally persist. Impression: Satisfactory endotracheal intubation. Patient's nurse notified at the time of interpretation Status post nasogastric intubation, tip below the diaphragm but otherwise position indeterminate. (3) CHF (congestive heart failure) (4) Hypoxia (5) ARF (acute renal failure) (6) Injury of left upper extremity (7) bleeding AV shunt (8) Diabetes (9) Hypertension, benign (10) Anemia in chronic kidney disease (11) Dialysis AV fistula malfunction (12) Abnormal laboratory test result (13) Respiratory distress (14) Hyperglycemia (15) Asthma (16) CHF exacerbation (17) Atrial flutter (18) End-stage renal disease (19) SVT (supraventricular tachycardia) Bolivar Barrios Oct 07, 2019 15:16
--- NOTE | 2019-10-07 15:57 | NUR ---
NURSE NOTES: Spoke to Xi from . Informed speech writer that DC order was faxed to Brian at [facility] and Brian will call ICU nurse's station when there is an available bed at [facility]. Addendum: 10/07/19 at 1943 by ZAYDA CLARKE RN DISREGARD THIS NOTED, WRONG PATIENT ENTRY
--- NOTE | 2019-10-07 16:38 | NUR ---
CASE MANAGEMENT:REVIEW 10/07/19 SI: AFIB/FLUTTER. RESPIRATORY FAILURE S/P CARDIOPULMONARY ARREST 99.0 80 16 99/52 100% ON VENT SUPPORT @ 35% FIO2 WBC+14.9 PLT-141 NA-129 BUN+28 CR+5.9 GLUCOSE-67 CA-7.2 IS: PROPOFOL GTT HEPARIN GTT IV CEFEPIME Q24 ASA NG QD COZAAR NG QD SYNTHROID NG QAM QVAR INH BID COREG NG Q12 CARDIZEM ~ HELD ISORDIL ~ HELD : ICU STATUS DCP: PATIENT IS FROM HOME
--- NOTE | 2019-10-07 16:48 | NUR ---
INSURANCE CLINICALS AND REVIEWS FAXED TO [facility] P:[phone] F:[phone] AUTH#[id number]
--- NOTE | 2019-10-07 17:40 | NUR ---
NURSE NOTES: Pt fully cleaned and linens changed after having a large brown soft BM. Pt turned and repositioned. Tube feeds continue to run at 45mL/hr. No residual noted. BS 92, with no intervention required at this time.
--- NOTE | 2019-10-07 19:17 | NUR ---
NURSE HAND-OFF REPORT: Latest Vital Signs: Temperature 99.0 , Pulse 103 , B/P 110 /61 , Respiratory Rate 16 , O2 SAT 100 , Mechanical Ventilator, 35% FiO2 . Vital Sign Comment: EKG Rhythm: Atrial Fibrillation Rhythm change?: N Notified?: Shawn Funk MD Response: Latest Roman Fall Score: 70 Fall Risk: High Risk Safety Measures: Call light Within Reach, Bed Alarm Zone 1, Side Rails Side Rails x3, Bed position Low and Locked. Fall Precautions: Yellow Socks Door Sign Patient Fall Education Report given to SHANI Llanes.
--- NOTE | 2019-10-07 19:30 | NUR ---
NURSE NOTES: Patient and report received from SHANI Rico. Pt is currently sedated RASS score -2 light sedation while on Propofol drip infusing at 25mcg/kg/min. Pt on a Heparin drip infusing at 18units/kg/hr, last PTT 70. Pt is orally intubated, ETT 7.5 at 26cm @ the lipline with vent settings AC16, VT500, Peep 5, FIO2 35%, O2Sat currently 100%. Pt in Afib on monitoring analyst, HR 122; OGT is present, feeds running Nepro at 45ml/hr. Pt is anuric. Left UA AV shunt is present, bruit/thrill present; however site not being used for dialysis and instead using Right subclavian PermCath, dressing dry/intact. Right femoral TLC, patent/intact and connected to IV drips. Right BKA stump and Left foot covered with gauze/dressing. Pt is on pressure release mattress. HOB at 30 degrees, bed locked, three side rails up. Pt also has bilateral soft wrist restraints despite being on Propofol due to pt reaching for ET tube, to prevent self-extubation.
--- NOTE | 2019-10-07 20:00 | NUR ---
NURSE NOTES: Patients RASS score of -3, decreased pressor to 15mcg/kg/min and will monitor RASS score. OGT feeds ongoing, no feed residuals. 50ml water flush given. Afebrile. NAD at this time, BP parameters within normotensive ranges. Oral care provided and suctioned, repositioned. Fall, Aspiration and skin precautions observed. Will continue to monitor.
--- NOTE | 2019-10-07 20:15 | NUR ---
NURSE NOTES: RASS score goal met. Patient now lightly sedated with a RASS of -2. Patient opens and closes eyes to verbal and tactile stimulus.
[2019-10-07] MEDS: Dyna-Hex 2% Top Sol 2oz TOPIC SCH (20:40)
[2019-10-07] MEDS: Atorvastatin 20mg tab ORAL SCH (20:40)
[2019-10-07] MEDS: Levemir Flexpen SUBQ SCH (20:46)
--- NOTE | 2019-10-07 21:00 | NUR ---
NURSE NOTES: Glucose noted to be 160, coverage given.
--- NOTE | 2019-10-07 22:00 | NUR ---
NURSE NOTES: Bedside assessment performed; Patient remains lightly sedated at RASS score of -2. Repositioned patient and suctioned. HR remains in Afib rhythm. Heparin gtt ongoing. No signs of bleeding observed. Blood pressure stable. All due meds given.
[2019-10-08] VITALS (48 sets, daily range): BP systolic 91–154; BP diastolic 45–97
--- NOTE | 2019-10-08 | NUR ---
NURSE NOTES: Patients is sedated, does not open eyes to voice or to tactile stimulus. Decreased Diprivan to 10mcg/kg/min to maintain an open eyes to verbal/tactile stimulus or RASS of -2. Afebrile at this time. NAD at this time. Patient given midnight meds, Cardizem via OGT. Oral care performed and Suctioned patient, clear thick secretions noted. Aspirations, fall and skin precautions observed. BP well maintained within normotensive ranges.
--- NOTE | 2019-10-08 00:15 | NUR ---
NURSE NOTES: Patient is lightly sedated; opens eyes to verbal and tactile stimuli for about 5-7 seconds. RASS score met at -2.
--- NOTE | 2019-10-08 02:00 | NUR ---
NURSE NOTES: Suctioned and repositioned patient. Patient remains lightly sedated, opens eyes to voice for about 5-7 seconds. Vitals are stable, afebrile. Pulses present. Will continue to monitor.
--- NOTE | 2019-10-08 04:00 | NUR ---
NURSE NOTES: Sponge bath given. AM labs drawn including PTT. Vitals continue to be stable. No signs of bleeding. Pulses present. Remains lightly sedated, opens eyes to voice for about 5-7 seconds. Maintained RASS score of -2.
--- NOTE | 2019-10-08 04:30 | NUR ---
HAND-OFF: Report given to Xochitl MCLEOD.
[2019-10-08 04:40] LABS: BASOPHILS % (AUTO) 1.4 % (0.0-2.0); HEMATOCRIT 33.7 % (42.0-52.0); HEMOGLOBIN 10.4 G/DL (14.2-18.0); LYMPHOCYTES % (AUTO) 6.2 % (20.0-45.0); MEAN CORPUSCULAR VOLUME 96 FL (80-99); MONOCYTES % (AUTO) 8.7 % (1.0-10.0); NEUTROPHILS % (AUTO) 82.8 % (45.0-75.0); PLATELET COUNT 176 K/UL (150-450); RED BLOOD COUNT 3.51 M/UL (4.70-6.10); RED CELL DISTRIBUTION WIDTH 16.6 % (11.6-14.8); WHITE BLOOD COUNT 13.1 K/UL (4.8-10.8)
[2019-10-08 04:52] LABS: ANION GAP 10 mmol/L (5-15); BLOOD UREA NITROGEN 35 mg/dL (7-18); CALCIUM 7.6 MG/DL (8.5-10.1); CARBON DIOXIDE 25 MMOL/L (21-32); CHLORIDE 88 MMOL/L (98-107); POTASSIUM 4.3 MMOL/L (3.5-5.1); SODIUM 123 MMOL/L (136-145)
[2019-10-08] MEDS ORDERED: Heparin 5000 units/ml inj IV SCH ×2 (05:15→20:30)
[2019-10-08] MEDS ORDERED: Heparin 25,000u/D5W 500ml 500 ML IV SCH ×3 (05:30→20:30)
[2019-10-08] MEDS: dilTIAZem HCl 90mg tab ORAL SCH ×4 (05:52→23:44)
[2019-10-08] MEDS: NovoLOG Insulin Flexpen SUBQ SCH ×4 (05:56→20:47)
--- NOTE | 2019-10-08 07:30 | NUR ---
NURSE HAND-OFF REPORT: Latest Vital Signs: Temperature 99.8 , Pulse 99 , B/P 109 /58 , Respiratory Rate 20 , O2 SAT 100 , Mechanical Ventilator, O2 Flow Rate . Vital Sign Comment: EKG Rhythm: Atrial Fibrillation Rhythm change?: N MD Notified MD Response Latest Roman Fall Score: 70 Fall Risk: High Risk Safety Measures: Call light Within Reach, Bed Alarm Zone 1, Side Rails Side Rails x3, Bed position Low and Locked. Fall Precautions: Yellow Socks Door Sign Patient Fall Education Report given to Bjorn de la torre
--- NOTE | 2019-10-08 07:53 | NUR ---
RESPIRATORY NOTES: Patient failed weaning trial. When placed on PS +8 PEEP +5 Fio2 35%, RSBI 109, Increased WOB, RR >35. Placed patient back onto previous ACVC settings after 8 minutes.
[2019-10-08] MEDS: Aspirin Baby 81mg ORAL SCH (08:39)
[2019-10-08] MEDS: Carvedilol 12.5mg tab ORAL SCH ×2 (08:39→20:39)
[2019-10-08] MEDS: Losartan 50mg tab ORAL SCH (08:39)
--- NOTE | 2019-10-08 09:00 | NUR ---
NURSE NOTES: Patient weaned off propofol starting at 0845. Lowered to 5mcg then stopped at 0900 per protocol.
[2019-10-08] MEDS: Renvela 2400 mg pkt ORAL SCH ×3 (09:34→18:25)
--- NOTE | 2019-10-08 09:54 | NUR ---
NURSE NOTES: Called and left a message to Dr Tidwell regarding low Na 123. Awaiting call back for new orders.
[2019-10-08] MEDS: Qvar 40mcg Inhaler 6.8 gm INH SCH ×2 (10:00→22:00)
--- NOTE | 2019-10-08 10:00 | NUR ---
NURSE NOTES: Patient received from Zain MCLEOD. Patient stable at this time, AOx0. VSS. RR even and unlabored with ETT 7.5 25 lip line. Vent AC 16 VT 500mL PEEP 5 and FIO2 35%. Atrial Fibrillation on night monitor. No s/sx of acute distress or pain. Patient. Pupils JOSH with measuring BL 3mm. Unable to assess strength. NGT noted with no residual. Feeding changed at this time. Patient anuric. Dialysis scheduled for today. Dialysis nurse called and confirmed for dialysis. Restraints on with good ROM, sensation, and circulation. Side rails x2, call light within reach bed low and locked. Will continue to monitor. Addendum: 10/08/19 at 1033 by BRITTON RIVERO RN INCORRECT TIME STAMP. ASSESSMENT COMPLETED AT 0735.
--- NOTE | 2019-10-08 10:00 | NUR ---
NURSE NOTES: Dr Tidwell called back and ordered to use Na 140 during HD. Order is already Na 140 in the system. Will continue order and notify dialysis nurse.
--- NOTE | 2019-10-08 10:13 | NUR ---
NURSE NOTES: Per Dr. Wong, no GI prophylaxis needed. Order for propofol discontinued and order received for Haldol 5mg.
--- NOTE | 2019-10-08 10:13 | NUR ---
RESPIRATORY NOTES: Attempted weaning again at 1013 however patient failed. RSBI 122, RR 37, HR >122bpm, WOB increased. Placed back onto ACVC.
--- NOTE | 2019-10-08 10:15 | NUR ---
NURSE NOTES: Patient failed vent weaning per RT Karlie.
[2019-10-08] MEDS ORDERED: Haloperidol Lactate 5 MG in D5W 55 ML IVPB PRN (10:30)
--- NOTE | 2019-10-08 10:34 | Pulmonology Progress Note ---
Subjective ROS Limited/Unobtainable: Yes Interval Events: None new Constitutional: Reports: no symptoms HEENT: Repors: no symptoms Respiratory: Reports: no symptoms Cardiovascular: Reports: no symptoms Gastrointestinal/Abdominal: Reports: no symptoms Allergies: Coded Allergies: Dust (Verified Allergy, Unknown, 06/06/19) Objective Last 24 Hour Vital Signs Date Time Temp Pulse Resp B/P (MAP) Pulse Ox O2 Delivery O2 Flow Rate FiO2 10/08/19 09:27 101 28 35 10/08/19 07:53 100 10/08/19 07:14 99 22 35 10/08/19 06:30 99 20 109/58 (75) 100 10/08/19 06:15 102 20 117/60 (79) 100 10/08/19 06:00 92 22 108/68 (81) 98 10/08/19 06:00 20 117/74 Mechanical Ventilator 35 10/08/19 05:52 94 107/57 10/08/19 05:45 99 20 107/57 (74) 100 10/08/19 05:35 22 117/74 Mechanical Ventilator 35 10/08/19 05:30 89 19 117/69 (85) 99 10/08/19 05:15 96 22 104/73 (83) 98 10/08/19 05:00 20 115/64 Mechanical Ventilator 10/08/19 05:00 103 21 115/54 (74) 100 10/08/19 04:57 81 20 35 10/08/19 04:45 103 18 109/51 (70) 100 10/08/19 04:30 101 18 114/64 (81) 99 10/08/19 04:15 98 19 115/53 (73) 99 10/08/19 04:00 99.8 98 21 97/63 (74) 99 10/08/19 04:00 16 115/53 Mechanical Ventilator 35 10/08/19 04:00 Mechanical Ventilator Mechanical Ventilator 10/08/19 04:00 96 10/08/19 04:00 35 10/08/19 03:45 106 23 112/55 (74) 100 10/08/19 03:30 88 18 99/47 (64) 98 10/08/19 03:29 89 19 99 Mechanical Ventilator 35 10/08/19 03:26 89 19 35 10/08/19 03:15 92 19 100/47 (64) 97 10/08/19 03:00 90 19 100/47 (64) 98 10/08/19 03:00 16 100/47 Mechanical Ventilator 35 10/08/19 02:30 90 19 103/54 (70) 98 10/08/19 02:00 16 107/61 Mechanical Ventilator 35 10/08/19 02:00 89 19 107/61 (76) 98 10/08/19 01:30 93 19 103/62 (76) 99 10/08/19 01:00 83 19 98/54 (69) 98 10/08/19 01:00 16 98/58 Mechanical Ventilator 35 10/08/19 00:45 16 94/46 Mechanical Ventilator 35 10/08/19 00:45 83 20 94/46 (62) 98 10/08/19 00:30 88 13 91/45 (60) 100 10/08/19 00:30 16 98/45 Mechanical Ventilator 35 10/08/19 00:15 89 16 99/53 (68) 100 10/08/19 00:15 16 99/53 Mechanical Ventilator 35 10/08/19 00:00 89 10/08/19 00:00 35 10/08/19 00:00 89 16 99/49 (66) 100 10/08/19 00:00 16 99/49 Mechanical Ventilator 35 10/08/19 00:00 Mechanical Ventilator Mechanical Ventilator 10/07/19 23:45 102 16 97/50 (66) 100 10/07/19 23:30 119 16 102/71 (81) 100 10/07/19 23:19 16 111/66 Mechanical Ventilator 35 10/07/19 23:18 115 111/50 10/07/19 23:15 118 16 111/66 (81) 100 10/07/19 23:13 111 19 35 10/07/19 23:00 116 26 111/50 (70) 100 10/07/19 23:00 16 111/50 Mechanical Ventilator 35 10/07/19 22:45 116 23 95/79 (84) 100 10/07/19 22:30 119 19 104/63 (77) 100 10/07/19 22:15 121 18 116/63 (80) 100 10/07/19 22:00 118 16 109/63 (78) 100 10/07/19 22:00 16 116/63 Mechanical Ventilator 35 10/07/19 21:45 120 16 106/62 (77) 100 81820 21:30 121 16 105/66 (79) 100 81820 21:15 121 16 111/67 (82) 100 1820 21:00 16 106/62 Mechanical Ventilator 35 81820 21:00 129 16 121/64 (83) 100 1820 20:54 124 19 35 20 20:45 131 16 120/69 (86) 100 1820 20:45 16 136/65 Mechanical Ventilator 35 20 20:30 16 120/69 Mechanical Ventilator 35 1820 20:30 128 16 120/69 (86) 100 1820 20:15 16 120/69 Mechanical Ventilator 35 10/07/19 20:15 127 16 120/67 (84) 100 1820 20:00 Mechanical Ventilator Mechanical Ventilator 10/07/19 20:00 16 120/67 Mechanical Ventilator 35 20 20:00 128 16 118/70 (86) 100 1820 20:00 35 1820 19:45 121 16 117/70 (86) 100 1820 19:30 117 3 122/69 (86) 100 1820 19:25 107 17 100 Mechanical Ventilator 35 109 18 35 1820 19:19 111 18 19:15 110 17 119/69 (86) 100 1820 19:00 16 110/61 Mechanical Ventilator 35 20 19:00 103 3 110/61 (77) 100 1820 18:30 96 19 101/50 (67) 100 1820 18:00 97 19 107/66 (80) 100 1820 18:00 16 107/66 Mechanical Ventilator 35 20 17:30 100 19 109/70 (83) 100 1820 17:00 107 22 108/73 (85) 100 20 17:00 16 108/73 Mechanical Ventilator 35 20 16:41 103 18 35 20 16:30 106 19 96/73 (81) 100 20 16:00 35 20 16:00 Mechanical Ventilator Mechanical Ventilator 10/07/19 16:00 96 10/07/19 16:00 16 112/58 Mechanical Ventilator 35 10/07/19 16:00 101 19 112/58 (76) 100 10/07/19 15:30 96 17 97/53 (68) 100 10/07/19 15:06 93 17 100 Mechanical Ventilator 35 96 18 35 10/07/19 15:00 100 17 103/66 (78) 100 10/07/19 15:00 16 103/66 Mechanical Ventilator 35 10/07/19 14:46 16 114/72 Mechanical Ventilator 35 10/07/19 14:30 94 17 114/72 (86) 100 10/07/19 14:00 90 16 101/51 (68) 100 10/07/19 14:00 16 105/55 Mechanical Ventilator 35 10/07/19 13:30 91 16 106/65 (79) 100 10/07/19 13:02 104 16 35 10/07/19 13:00 99 15 108/66 (80) 100 10/07/19 13:00 16 108/66 Mechanical Ventilator 35 10/07/19 12:30 87 16 110/55 (73) 100 10/07/19 12:06 99/52 10/07/19 12:00 Mechanical Ventilator Mechanical Ventilator 10/07/19 12:00 99.0 89 16 99/52 (68) 100 10/07/19 12:00 89 10/07/19 12:00 16 106/50 Mechanical Ventilator 35 10/07/19 12:00 80 99/52 10/07/19 12:00 35 10/07/19 11:30 94 17 112/62 (79) 100 10/07/19 11:01 89 24 100 Mechanical Ventilator 35 99 18 35 10/07/19 11:00 16 104/58 Mechanical Ventilator 35 10/07/19 11:00 101 28 107/63 (78) 99 Intake and Output 10/07/19 10/08/19 19:00 07:00 Intake Total 1214.151 ml 995.619 ml Balance 1214.151 ml 995.619 ml Free Water 100 ml IV Total 559.151 ml 400.619 ml Tube Feeding 315 ml 495 ml Other 340 ml General Appearance: no acute distress HEENT: normocephalic Respiratory: chest wall non-tender, lungs clear Cardiovascular: normal peripheral pulses, normal rate Abdomen: normal bowel sounds Microbiology Date/Time Source Procedure Growth Status 10/06/19 05:20 Penis Gram Stain - Final Resulted 10/06/19 05:20 Wound Culture - Preliminary Gram Negative Bacillus 1 Staphylococcus Sp Coag Neg Resulted 10/06/19 05:20 Leg Left Gram Stain - Final Resulted 10/06/19 05:20 Wound Culture - Preliminary Gram Negative Bacillus 1 Resulted Laboratory Tests 10/07/19 11:53: POC Whole Blood Glucose 67L 10/07/19 12:00: Activated Partial Thromboplast Time 70H 10/08/19 04:00: Activated Partial Thromboplast Time 62H, White Blood Count 13.1H, Red Blood Count 3.51L, Hemoglobin 10.4L, Hematocrit 33.7L, Mean Corpuscular Volume 96, Mean Corpuscular Hemoglobin 29.5, Mean Corpuscular Hemoglobin Concent 30.8L, Red Cell Distribution Width 16.6H, Platelet Count 176, Mean Platelet Volume 6.5 , Neutrophils (%) (Auto) 82.8H, Lymphocytes (%) (Auto) 6.2L, Monocytes (%) (Auto ) 8.7, Eosinophils (%) (Auto) 1.0, Basophils (%) (Auto) 1.4, Sodium Level 123L, Potassium Level 4.3, Chloride Level 88L, Carbon Dioxide Level 25, Anion Gap 10, Blood Urea Nitrogen 35H, Creatinine 7.0H, Estimat Glomerular Filtration Rate 9.6 , Glucose Level 175H, Calcium Level 7.6L, Triglycerides Level 89 10/08/19 05:49: POC Whole Blood Glucose [Pending] Current Medications Medications (Trade) Dose Ordered Sig/Monica Route PRN Reason Start Time Stop Time Status Last Admin Dose Admin Acetaminophen (Tylenol) 650 mg Q4H PRN ORAL Mild Pain (Pain Scale 1-3) 10/03/19 14:00 11/01/19 13:59 10/05/19 09:51 Acetaminophen (Tylenol) 650 mg Q4H PRN ORAL Temp >100.5 10/03/19 14:00 11/01/19 13:59 10/07/19 08:58 Albumin Human 100 ml @ 200 mls/hr PRN PRN IV sbp<90 during hd 10/08/19 08:00 10/08/19 23:59 Aspirin (ASA) 81 mg DAILY ORAL 10/04/19 09:00 11/17/19 08:59 10/07/19 08:16 Atorvastatin Calcium (Lipitor) 20 mg BEDTIME ORAL 10/03/19 21:00 12/31/19 20:59 10/07/19 20:40 Beclomethasone Dipropionate (Qvar 40 Inhaler) 1 puff BIDRT INH 10/03/19 22:00 11/02/19 21:59 Carvedilol (Coreg) 37.5 mg EVERY 12 HOURS ORAL 10/03/19 21:00 11/01/19 20:59 Cefepime HCl 500 mg/Dextrose 55 ml @ 110 mls/hr Q24H IV 10/06/19 12:00 10/13/19 11:59 10/07/19 12:12 Chlorhexidine Gluconate (Dina-Hex 2%) 1 applic DAILY@1999 TOPIC 10/03/19 20:00 01/01/20 19:59 10/07/19 20:40 Collagenase (Santyl) 1 applic DAILY TOPIC 10/03/19 15:00 01/01/20 14:59 10/07/19 08:18 Dextrose (Dextrose 50%) 25 ml Q30M PRN IV Hypoglycemia 10/03/19 14:15 12/31/19 20:14 10/05/19 10:21 Dextrose (Dextrose 50%) 50 ml Q30M PRN IV Hypoglycemia 10/03/19 14:15 12/31/19 20:14 10/05/19 05:31 Diltiazem HCl (Cardizem Tab) 90 mg Q6HR ORAL 10/03/19 18:00 11/01/19 20:14 10/08/19 05:52 Diphenhydramine HCl (Benadryl) 25 mg Q6H PRN ORAL Itching/Pruritis 10/03/19 14:15 11/01/19 20:14 Diphenoxylate HCl/ Atropine (Lomotil) 2.5 mg Q4H PRN ORAL Diarrhea 10/03/19 14:00 11/01/19 13:59 Haloperidol Lactate 5 mg/ Dextrose 56 ml @ 224 mls/hr Q6H PRN IVPB Agitation 10/08/19 10:30 11/22/19 10:29 Heparin Sodium/ Dextrose 500 ml @ 35.924 mls/ hr ADJUST PER PROTOCOL IV 10/08/19 05:30 11/07/19 05:29 10/08/19 05:35 Hydromorphone HCl (Dilaudid) 2 mg Q4H PRN IVP For Pain (4-10) 10/03/19 14:00 10/10/19 01:59 Insulin Aspart (NovoLOG) BEFORE MEALS AND HS SUBQ 10/03/19 16:30 12/31/19 20:59 10/08/19 05:56 Insulin Detemir (Levemir) 18 units BEDTIME SUBQ 10/07/19 21:00 01/05/20 20:59 10/07/19 20:46 Isosorbide Dinitrate (Isordil) 10 mg THREE TIMES A DAY ORAL 10/03/19 18:00 11/01/19 20:14 10/04/19 18:31 Levothyroxine Sodium (Synthroid) 75 mcg ACBREAKFAST ORAL 10/04/19 06:30 11/03/19 06:29 10/08/19 05:53 Lorazepam (Ativan 2mg/ml 1ml) 1 mg Q3H PRN IV For Anxiety 10/03/19 14:00 10/10/19 13:59 Losartan Potassium (Cozaar) 100 mg DAILY ORAL 10/04/19 09:00 11/02/19 08:59 Mupirocin (Bactroban Oint) 1 applic THREE TIMES A DAY TOPIC 10/03/19 15:00 10/08/19 14:59 10/07/19 17:01 Nitroglycerin (Ntg) 0.4 mg Q5M PRN SL Prn Chest Pain 10/03/19 13:50 11/01/19 20:14 Norepinephrine Bitartrate 8 mg/ Dextrose 250 ml @ 0 mls/hr Q24H IV 10/03/19 14:00 11/02/19 13:59 10/06/19 23:30 Ondansetron HCl (Zofran) 4 mg Q6H PRN IVP Nausea & Vomiting 10/03/19 14:00 11/01/19 13:59 Polyethylene Glycol (Miralax) 17 gm DAILYPRN PRN ORAL Constipation 10/03/19 14:00 11/01/19 13:59 Sevelamer Carbonate (Renvela) 2,400 mg THREE TIMES A DAY ORAL 10/06/19 18:00 01/04/20 17:59 10/08/19 09:34 Sodium Chloride 1,000 ml @ 500 mls/hr Q2H PRN IVLG sbp<90 during hd 10/08/19 08:00 10/08/19 23:59 Vancomycin HCl (Vanco pharmacy to dose) 1 ea DAILY PRN MISC Per rx protocol 10/05/19 11:15 11/04/19 11:14 Assessment/Plan Assessment/Plan IMPRESSION: 1. ESRD, on dialysis. 2. Pulmonary edema. 3. Cardiac arrhythmias with A-flutter/AFib. 4. Status post cardiopulmonary arrest. 5. Respiratory failure 6. Previous right BKA. DISCUSSION: Continue current Ventilator settings, wean as tolerated weaning to resume today Lighten sedation DC propofol PPX HD per Nephrology Cardiology following. may transfer to outside (contracted ) facility Ming Wong MD Oct 08, 2019 10:34
--- NOTE | 2019-10-08 12:24 | NUR ---
NURSE NOTES: Spoke with [facility] pharmacist. Will hold Cefepime and give the dose when dialysis is done around 5 PM.
--- NOTE | 2019-10-08 14:52 | Surgery Progress Note ---
Surgery Progress Note Subjective Additional Comments improving weaning vent no n/v/f/c exam stable Objective Last 24 Hour Vital Signs Date Time Temp Pulse Resp B/P (MAP) Pulse Ox O2 Delivery O2 Flow Rate FiO2 10/08/19 13:07 124 24 35 10/08/19 12:00 133 10/08/19 12:00 35 10/08/19 12:00 Mechanical Ventilator Mechanical Ventilator 10/08/19 11:00 117 21 123/81 (95) 100 10/08/19 10:41 122 32 35 10/08/19 10:30 107 19 119/82 (94) 100 10/08/19 10:00 114 19 121/59 (79) 100 10/08/19 09:45 112 24 129/70 (89) 100 10/08/19 09:30 109 20 112/58 (76) 100 10/08/19 09:27 101 28 35 10/08/19 09:15 121 22 129/65 (86) 99 10/08/19 09:00 21 129/65 Endotracheal Tube 35 10/08/19 09:00 103 21 120/68 (85) 100 10/08/19 08:45 21 120/68 Endotracheal Tube 35 10/08/19 08:45 102 21 106/69 (81) 100 10/08/19 08:30 105 21 124/66 (85) 100 10/08/19 08:00 88 10/08/19 08:00 99.8 96 21 112/66 (81) 100 10/08/19 08:00 20 121/50 Endotracheal Tube 35 10/08/19 08:00 35 10/08/19 08:00 Mechanical Ventilator Mechanical Ventilator 10/08/19 07:53 100 10/08/19 07:30 98 19 105/64 (78) 100 10/08/19 07:14 99 22 35 10/08/19 07:00 97 21 118/69 (85) 98 10/08/19 07:00 20 98/52 Endotracheal Tube 35 10/08/19 06:30 99 20 109/58 (75) 100 10/08/19 06:15 102 20 117/60 (79) 100 10/08/19 06:00 92 22 108/68 (81) 98 10/08/19 06:00 20 117/74 Mechanical Ventilator 35 10/08/19 05:52 94 107/57 10/08/19 05:45 99 20 107/57 (74) 100 10/08/19 05:35 22 117/74 Mechanical Ventilator 35 10/08/19 05:30 89 19 117/69 (85) 99 10/08/19 05:15 96 22 104/73 (83) 98 10/08/19 05:00 20 115/64 Mechanical Ventilator 10/08/19 05:00 103 21 115/54 (74) 100 10/08/19 04:57 81 20 35 10/08/19 04:45 103 18 109/51 (70) 100 10/08/19 04:30 101 18 114/64 (81) 99 10/08/19 04:15 98 19 115/53 (73) 99 10/08/19 04:00 99.8 98 21 97/63 (74) 99 10/08/19 04:00 16 115/53 Mechanical Ventilator 35 10/08/19 04:00 Mechanical Ventilator Mechanical Ventilator 10/08/19 04:00 96 10/08/19 04:00 35 10/08/19 03:45 106 23 112/55 (74) 100 10/08/19 03:30 88 18 99/47 (64) 98 10/08/19 03:29 89 19 99 Mechanical Ventilator 35 10/08/19 03:26 89 19 35 10/08/19 03:15 92 19 100/47 (64) 97 10/08/19 03:00 90 19 100/47 (64) 98 10/08/19 03:00 16 100/47 Mechanical Ventilator 35 10/08/19 02:30 90 19 103/54 (70) 98 10/08/19 02:00 16 107/61 Mechanical Ventilator 35 10/08/19 02:00 89 19 107/61 (76) 98 10/08/19 01:30 93 19 103/62 (76) 99 10/08/19 01:00 83 19 98/54 (69) 98 10/08/19 01:00 16 98/58 Mechanical Ventilator 35 10/08/19 00:45 16 94/46 Mechanical Ventilator 35 10/08/19 00:45 83 20 94/46 (62) 98 10/08/19 00:30 88 13 91/45 (60) 100 10/08/19 00:30 16 98/45 Mechanical Ventilator 35 8/19/20 00:15 89 16 99/53 (68) 100 20 00:15 16 99/53 Mechanical Ventilator 35 10/08/19 00:00 89 820 00:00 35 8 00:00 89 16 99/49 (66) 100 20 00:00 16 99/49 Mechanical Ventilator 35 10/08/19 00:00 Mechanical Ventilator Mechanical Ventilator 10/07/19 23:45 102 16 97/50 (66) 100 10/07/19 23:30 119 16 102/71 (81) 100 18 23:19 16 111/66 Mechanical Ventilator 35 10/07/19 23:18 115 111/50 10/07/19 23:15 118 16 111/66 (81) 100 10/07/19 23:13 111 19 35 10/07/19 23:00 116 26 111/50 (70) 100 10/07/19 23:00 16 111/50 Mechanical Ventilator 35 10/07/19 22:45 116 23 95/79 (84) 100 10/07/19 22:30 119 19 104/63 (77) 100 10/07/19 22:15 121 18 116/63 (80) 100 10/07/19 22:00 118 16 109/63 (78) 100 10/07/19 22:00 16 116/63 Mechanical Ventilator 35 10/07/19 21:45 120 16 106/62 (77) 100 20 21:30 121 16 105/66 (79) 100 1820 21:15 121 16 111/67 (82) 100 20 21:00 16 106/62 Mechanical Ventilator 35 10/07/19 21:00 129 16 121/64 (83) 100 1820 20:54 124 19 35 1820 20:45 131 16 120/69 (86) 100 1820 20:45 16 136/65 Mechanical Ventilator 35 20 20:30 16 120/69 Mechanical Ventilator 35 1820 20:30 128 16 120/69 (86) 100 1820 20:15 16 120/69 Mechanical Ventilator 35 1820 20:15 127 16 120/67 (84) 100 1820 20:00 Mechanical Ventilator Mechanical Ventilator 10/07/19 20:00 16 120/67 Mechanical Ventilator 35 10/07/19 20:00 128 16 118/70 (86) 100 10/07/19 20:00 35 10/07/19 19:45 121 16 117/70 (86) 100 10/07/19 19:30 117 3 122/69 (86) 100 10/07/19 19:25 107 17 100 Mechanical Ventilator 35 109 18 35 10/07/19 19:19 111 10/07/19 19:15 110 17 119/69 (86) 100 10/07/19 19:00 16 110/61 Mechanical Ventilator 35 10/07/19 19:00 103 3 110/61 (77) 100 10/07/19 18:30 96 19 101/50 (67) 100 10/07/19 18:00 97 19 107/66 (80) 100 10/07/19 18:00 16 107/66 Mechanical Ventilator 35 10/07/19 17:30 100 19 109/70 (83) 100 10/07/19 17:00 107 22 108/73 (85) 100 10/07/19 17:00 16 108/73 Mechanical Ventilator 35 10/07/19 16:41 103 18 35 10/07/19 16:30 106 19 96/73 (81) 100 10/07/19 16:00 35 10/07/19 16:00 Mechanical Ventilator Mechanical Ventilator 10/07/19 16:00 96 10/07/19 16:00 16 112/58 Mechanical Ventilator 35 10/07/19 16:00 101 19 112/58 (76) 100 10/07/19 15:30 96 17 97/53 (68) 100 10/07/19 15:06 93 17 100 Mechanical Ventilator 35 96 18 35 10/07/19 15:00 100 17 103/66 (78) 100 10/07/19 15:00 16 103/66 Mechanical Ventilator 35 I&O Intake and Output 10/07/19 10/08/19 19:00 07:00 Intake Total 1214.151 ml 1081.307 ml Balance 1214.151 ml 1081.307 ml Free Water 100 ml IV Total 559.151 ml 441.307 ml Tube Feeding 315 ml 540 ml Other 340 ml Dressing: saturated Cardiovascular: RSR Respiratory: decreased breath sounds Abdomen: soft, non-tender, present bowel sounds Extremities: no tenderness, no cyanosis Laboratory Tests Test 10/08/19 04:00 10/08/19 05:49 10/08/19 12:00 White Blood Count 13.1 K/UL (4.8-10.8) H Red Blood Count 3.51 M/UL (4.70-6.10) L Hemoglobin 10.4 G/DL (14.2-18.0) L Hematocrit 33.7 % (42.0-52.0) L Mean Corpuscular Volume 96 FL (80-99) Mean Corpuscular Hemoglobin 29.5 PG (27.0-31.0) Mean Corpuscular Hemoglobin Concent 30.8 G/DL (32.0-36.0) L Red Cell Distribution Width 16.6 % (11.6-14.8) H Platelet Count 176 K/UL (150-450) Mean Platelet Volume 6.5 FL (6.5-10.1) Neutrophils (%) (Auto) 82.8 % (45.0-75.0) H Lymphocytes (%) (Auto) 6.2 % (20.0-45.0) L Monocytes (%) (Auto) 8.7 % (1.0-10.0) Eosinophils (%) (Auto) 1.0 % (0.0-3.0) Basophils (%) (Auto) 1.4 % (0.0-2.0) Activated Partial Thromboplast Time 62 SEC (23-33) H 98 SEC (23-33) H Sodium Level 123 MMOL/L (136-145) L Potassium Level 4.3 MMOL/L (3.5-5.1) Chloride Level 88 MMOL/L (98-107) L Carbon Dioxide Level 25 MMOL/L (21-32) Anion Gap 10 mmol/L (5-15) Blood Urea Nitrogen 35 mg/dL (7-18) H Creatinine 7.0 MG/DL (0.55-1.30) H Estimat Glomerular Filtration Rate 9.6 mL/min (>60) Glucose Level 175 MG/DL (74-106) H Calcium Level 7.6 MG/DL (8.5-10.1) L Triglycerides Level 89 MG/DL (30-150) POC Whole Blood Glucose Pending Plan Problems: (1) Cardiopulmonary arrest Assessment & Plan: in ICU on support weaning labs noted cont current care Assessment of pt's skin limited as pt is stable at present to be turned in bed. Generalized edemae noted. Shaft of penis is swollen,erythematous and oozing small amt purulent exudate from meatus. At head of Penis is an irregular shaped wound with 100% slough at base of wound(L)3cm x (W)2.5cm. Edges are erythematous with surrounding erythema shaft. Laterally, but in close proximity is small pustule(L)0.5cm x (W)0.4cm.Along foreskin is erythematous and swollen. 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 No surrounding erythema or evidence of further skin breakdown noted. L Lower ext noted to have very snugged sharee wrap which was removed. Xerosis skin with Haemosiderin deposits noted to LLE. LLE washed and moisturized to better assess wounds. Two areas of dry pink epithelial noted to dorsal and lateral L tibia. Linear Dry eschar noted to posterior L Knee (L)1.2cm x (W)9.5cm. No surrounding erythema or induration noted. Full thickness wound L Hallux(L)3cm x (W)2.5cm.Base of wound is 100% yellow slough. Margins are erythematous. Periwound is dark and indurated. Wound is malodorous. No exudate noted. L 5th TMA noted. At distal /lateral L foot is a Full Thickness wound(L)2cm x (W) 2.5cm. Base of wound is 80% mixed slough and eschar,20% carol. Edges are macerated. Small amt seropurulent exudate noted. Wound is malodorous. At Plantar aspect of L foot at 3rd and 4th metatarsal heads is a full thickness wound that is malodorous. (L)1.5cm x (W)1cm. Base of wound is mixed soft necrosis and slough. Small amt seropurulent exudate noted. Periwound skin is callused but no erythema noted. DTPI noted to L heel (L)3.1cm x (W)2cm. Base of injury is purpuric and fluctuant. Surrounding areas of L heel is boggy without erythema. Hyperpigmentation from previous wound noted to medial L malleolus. Will plan to assess Back and sacral area when pt is stable to be turned. Tx.Plan:Cleanse wound Penis with Saline. Apply Nickel thick layer of Santyl with saline moistened 2x2 gauze Daily and prn. Apply Bactroban to wounds on Penis TID as directed by . Cleanse Wounds L Foot with Saline. Apply Nickel Thick layer Santyl. Apply Saline moistened gauze to each wound. Cover with ABD pad. Wrap with Kerlix Daily and prn. Apply Cavilon Skin Barrier to posterior L Knee Daily and prn. Moisturize dry skin LLE daily with each drsg changes. Apply Cavilon Skin Barrier to L Heel daily. Apply Cavilon Skin Barrier to base of R BKA Stump. Cover with ABD Pad. Wrap with Kerlix every 3 days and prn. Apply Moisture Barrier Paste to sacrum. Cover with Optifoam drsg. Change every 3 days and prn. Reposition at least every 2hours or as tolerated. Off-load L Heel with Pillow. Off-load L BKA with Pillow. APM/NATAHLY Mattress overlay. (2) Bilateral pleural effusion Assessment & Plan: Interim endotracheal intubation, endotracheal tube tip in good position projecting approximately 7 cm above the ravinder. Interim placement of an orogastric tube, tip of which projects beyond the edge of the image, position therefore indeterminate. Right jugular dialysis catheter is again demonstrated. Large right pleural effusion, mild interstitial edema bilaterally persist. Impression: Satisfactory endotracheal intubation. Patient's nurse notified at the time of interpretation Status post nasogastric intubation, tip below the diaphragm but otherwise position indeterminate. (3) CHF (congestive heart failure) (4) Hypoxia (5) ARF (acute renal failure) (6) Injury of left upper extremity (7) bleeding AV shunt (8) Diabetes (9) Hypertension, benign (10) Anemia in chronic kidney disease (11) Dialysis AV fistula malfunction (12) Abnormal laboratory test result (13) Respiratory distress (14) Hyperglycemia (15) Asthma (16) CHF exacerbation (17) Atrial flutter (18) End-stage renal disease (19) SVT (supraventricular tachycardia) Bolivar Barrios Oct 08, 2019 14:52
--- NOTE | 2019-10-08 15:11 | NUR ---
NURSE NOTES: PRN Haldol 5mg given for agitation and desaturation during dialysis. Will continue to monitor. Addendum: 10/08/19 at 1512 by MANDA ESCOBAR RN RN NURSE NOTES: FiO2 increased to 100% since patient desaturated to 70-80's. PRN Haldol 5mg given for agitation and desaturation during dialysis. Will continue to monitor.
--- NOTE | 2019-10-08 16:36 | NUR ---
Discharge planning patient out of network RONIT Rodriguez seeking contracted facility [facility] t:[phone] Wong aware of plan to transfer
--- NOTE | 2019-10-08 17:34 | NUR ---
NURSE NOTES: Dr. Wong made aware that per [employer]- patient will be transferred to either [facility] or [facility] tomorrow ( )> Dr. Wong stated patient OK to be transferred
--- NOTE | 2019-10-08 17:46 | Nephrology Progress Note ---
Assessment/Plan Problem List: (1) Ulcer of leg due to secondary diabetes (2) Cardiopulmonary arrest (3) CHF (congestive heart failure) (4) Bilateral pleural effusion (5) Diabetes (6) Anemia in chronic kidney disease (7) Atrial flutter (8) End-stage renal disease (9) Osteomyelitis of ankle or foot, left, acute Plan levophed now off, low -normal bp, glu and insulin adjusted, start nephro tube feed, fever and leg wounds, possible osteo--confirmed by xray, , start vanco and cefepime, seen on HD 10/07 all icu orders reviewed Subjective ROS Limited/Unobtainable: Yes Objective Objective Last 24 Hour Vital Signs Date Time Temp Pulse Resp B/P (MAP) Pulse Ox O2 Delivery O2 Flow Rate FiO2 10/08/19 17:10 123 26 100 10/08/19 17:00 117 20 113/75 (88) 100 10/08/19 16:00 99.4 136 27 129/95 (106) 93 10/08/19 16:00 Mechanical Ventilator Mechanical Ventilator 10/08/19 16:00 137 10/08/19 15:27 124 27 100 10/08/19 15:14 99.5 10/08/19 15:11 100 10/08/19 15:00 136 26 154/97 (116) 75 10/08/19 14:00 110 19 129/75 (93) 99 10/08/19 13:07 124 24 35 10/08/19 13:00 108 0 127/70 (89) 100 10/08/19 12:00 133 10/08/19 12:00 100.5 126 20 135/78 (97) 100 10/08/19 12:00 35 10/08/19 12:00 Mechanical Ventilator Mechanical Ventilator 10/08/19 11:00 117 21 123/81 (95) 100 10/08/19 10:41 122 32 35 10/08/19 10:30 107 19 119/82 (94) 100 10/08/19 10:00 114 19 121/59 (79) 100 10/08/19 09:45 112 24 129/70 (89) 100 10/08/19 09:30 109 20 112/58 (76) 100 10/08/19 09:27 101 28 35 10/08/19 09:15 121 22 129/65 (86) 99 10/08/19 09:00 21 129/65 Endotracheal Tube 35 10/08/19 09:00 103 21 120/68 (85) 100 10/08/19 08:45 21 120/68 Endotracheal Tube 35 10/08/19 08:45 102 21 106/69 (81) 100 10/08/19 08:30 105 21 124/66 (85) 100 10/08/19 08:00 88 10/08/19 08:00 99.8 96 21 112/66 (81) 100 10/08/19 08:00 20 121/50 Endotracheal Tube 35 10/08/19 08:00 35 10/08/19 08:00 Mechanical Ventilator Mechanical Ventilator 10/08/19 07:53 100 10/08/19 07:30 98 19 105/64 (78) 100 10/08/19 07:14 99 22 35 10/08/19 07:00 97 21 118/69 (85) 98 10/08/19 07:00 20 98/52 Endotracheal Tube 35 10/08/19 06:30 99 20 109/58 (75) 100 10/08/19 06:15 102 20 117/60 (79) 100 10/08/19 06:00 92 22 108/68 (81) 98 10/08/19 06:00 20 117/74 Mechanical Ventilator 35 10/08/19 05:52 94 107/57 10/08/19 05:45 99 20 107/57 (74) 100 10/08/19 05:35 22 117/74 Mechanical Ventilator 35 10/08/19 05:30 89 19 117/69 (85) 99 10/08/19 05:15 96 22 104/73 (83) 98 10/08/19 05:00 20 115/64 Mechanical Ventilator 10/08/19 05:00 103 21 115/54 (74) 100 10/08/19 04:57 81 20 35 10/08/19 04:45 103 18 109/51 (70) 100 10/08/19 04:30 101 18 114/64 (81) 99 10/08/19 04:15 98 19 115/53 (73) 99 10/08/19 04:00 99.8 98 21 97/63 (74) 99 10/08/19 04:00 16 115/53 Mechanical Ventilator 35 10/08/19 04:00 Mechanical Ventilator Mechanical Ventilator 10/08/19 04:00 96 10/08/19 04:00 35 10/08/19 03:45 106 23 112/55 (74) 100 10/08/19 03:30 88 18 99/47 (64) 98 10/08/19 03:29 89 19 99 Mechanical Ventilator 35 10/08/19 03:26 89 19 35 10/08/19 03:15 92 19 100/47 (64) 97 10/08/19 03:00 90 19 100/47 (64) 98 10/08/19 03:00 16 100/47 Mechanical Ventilator 35 10/08/19 02:30 90 19 103/54 (70) 98 10/08/19 02:00 16 107/61 Mechanical Ventilator 35 10/08/19 02:00 89 19 107/61 (76) 98 10/08/19 01:30 93 19 103/62 (76) 99 10/08/19 01:00 83 19 98/54 (69) 98 10/08/19 01:00 16 98/58 Mechanical Ventilator 35 10/08/19 00:45 16 94/46 Mechanical Ventilator 35 10/08/19 00:45 83 20 94/46 (62) 98 10/08/19 00:30 88 13 91/45 (60) 100 10/08/19 00:30 16 98/45 Mechanical Ventilator 35 10/08/19 00:15 89 16 99/53 (68) 100 10/08/19 00:15 16 99/53 Mechanical Ventilator 35 10/08/19 00:00 89 10/08/19 00:00 35 10/08/19 00:00 89 16 99/49 (66) 100 10/08/19 00:00 16 99/49 Mechanical Ventilator 35 10/08/19 00:00 Mechanical Ventilator Mechanical Ventilator 10/07/19 23:45 102 16 97/50 (66) 100 10/07/19 23:30 119 16 102/71 (81) 100 10/07/19 23:19 16 111/66 Mechanical Ventilator 35 10/07/19 23:18 115 111/50 10/07/19 23:15 118 16 111/66 (81) 100 10/07/19 23:13 111 19 35 10/07/19 23:00 116 26 111/50 (70) 100 10/07/19 23:00 16 111/50 Mechanical Ventilator 35 10/07/19 22:45 116 23 95/79 (84) 100 1820 22:30 119 19 104/63 (77) 100 81820 22:15 121 18 116/63 (80) 100 1820 22:00 118 16 109/63 (78) 100 1820 22:00 16 116/63 Mechanical Ventilator 35 20 21:45 120 16 106/62 (77) 100 1820 21:30 121 16 105/66 (79) 100 1820 21:15 121 16 111/67 (82) 100 20 21:00 16 106/62 Mechanical Ventilator 35 10/07/19 21:00 129 16 121/64 (83) 100 10/07/19 20:54 124 19 35 10/07/19 20:45 131 16 120/69 (86) 100 1820 20:45 16 136/65 Mechanical Ventilator 35 10/07/19 20:30 16 120/69 Mechanical Ventilator 35 10/07/19 20:30 128 16 120/69 (86) 100 1820 20:15 16 120/69 Mechanical Ventilator 35 10/07/19 20:15 127 16 120/67 (84) 100 1820 20:00 Mechanical Ventilator Mechanical Ventilator 10/07/19 20:00 16 120/67 Mechanical Ventilator 35 10/07/19 20:00 128 16 118/70 (86) 100 1820 20:00 35 1820 19:45 121 16 117/70 (86) 100 20 19:30 117 3 122/69 (86) 100 1820 19:25 107 17 100 Mechanical Ventilator 35 109 18 35 1820 19:19 111 1820 19:15 110 17 119/69 (86) 100 10/07/19 19:00 16 110/61 Mechanical Ventilator 35 10/07/19 19:00 103 3 110/61 (77) 100 1820 18:30 96 19 101/50 (67) 100 10/07/19 18:00 97 19 107/66 (80) 100 10/07/19 18:00 16 107/66 Mechanical Ventilator 35 Intake and Output 10/07/19 10/08/19 19:00 07:00 Intake Total 1214.151 ml 1081.307 ml Balance 1214.151 ml 1081.307 ml Free Water 100 ml IV Total 559.151 ml 441.307 ml Tube Feeding 315 ml 540 ml Other 340 ml Laboratory Tests 10/08/19 04:00: White Blood Count 13.1H, Red Blood Count 3.51L, Hemoglobin 10.4L, Hematocrit 33.7L, Mean Corpuscular Volume 96, Mean Corpuscular Hemoglobin 29.5, Mean Corpuscular Hemoglobin Concent 30.8L, Red Cell Distribution Width 16.6H, Platelet Count 176, Mean Platelet Volume 6.5, Neutrophils (%) (Auto) 82.8H, Lymphocytes (%) (Auto) 6.2L, Monocytes (%) (Auto) 8.7, Eosinophils (%) (Auto) 1.0, Basophils (%) (Auto) 1.4, Activated Partial Thromboplast Time 62H, Sodium Level 123L, Potassium Level 4.3, Chloride Level 88L, Carbon Dioxide Level 25, Anion Gap 10, Blood Urea Nitrogen 35H, Creatinine 7.0H, Estimat Glomerular Filtration Rate 9.6, Glucose Level 175H, Calcium Level 7.6L, Triglycerides Level 89 10/08/19 05:49: POC Whole Blood Glucose [Pending] 10/08/19 12:00: Activated Partial Thromboplast Time 98H Height (Feet): 5 Height (Inches): 6.00 Weight (Pounds): 174 General Appearance: other - sedated on vent Cardiovascular: regularly irregular Respiratory/Chest: rhonchi - bilaterally Abdomen: non tender, soft Extremities: trace edema Neurologic: unresponsive Smith Tidwell MD Oct 08, 2019 17:46
[2019-10-08] MEDS: Cefepime HCl 500 MG in D5W 55 ML IV SCH (18:26)
--- NOTE | 2019-10-08 19:30 | NUR ---
NURSE HAND-OFF REPORT: Latest Vital Signs: Temperature 99.4 , Pulse 124 , B/P 102 /80 , Respiratory Rate 25 , O2 SAT 96 , Mechanical Ventilator, O2 Flow Rate . Vital Sign Comment: STABLE EKG Rhythm: Atrial Fibrillation Rhythm change?: N MD Notified?: N/A MD Response: N/A Latest Roman Fall Score: 70 Fall Risk: High Risk Safety Measures: Call light Within Reach, Bed Alarm Zone 1, Side Rails Side Rails x3, Bed position Low and Locked. Fall Precautions: Yellow Socks Door Sign Patient Fall Education Report given to Jorge RN. Plan of care endorsed. Endorsed that HR and O2 is better now 110-120. HR went up to 130's during dialysis and patient was desating. FIO2 changed to 100% at this time. 3.5L removed during dialysis. Plan for transfer.
--- NOTE | 2019-10-08 19:45 | NUR ---
NURSE NOTES: le: PATIENT OPEN EYES TO VOICE, RESPIRATION REGULAR ON ETT TO VENT AC 16/TV 500/FIO2 100%/PEEP 5, O2 SATURATION 100%, HR 100'S/MIN A-FIB W/BBB STATUS, OGT INTACT AND PATENT, NO N/V NOTED, ONGOING NEPRO AT 45L/HR VIA OGT, NO RESIDUE NOTED, KEPT HOB 30 DEGREES AND ASPIRATION PRECAUTION, ABDOMEN SOFT, NON TENDER, ANURIC STATUS, AV SHUNT TO LEFT UPPER ARM, NO BLEEDING STATUS, KEPT LEFT ARM PRECAUTION, RIGHT BKA STATUS, PERMA CATH TO RIGHT CHEST, TLC TO RIGHT FEMORAL, INTACT AND PATENT, ONGOING HEPARIN 18 UNIT/KG/HR VIA TLC, 2 POINT SOFT RESTRAINTS STATUS, MADE LOWER BED POSITION, ON P200 BED, BED ALARM AND LOCKED, PLACED CALL LIGHT WITHIN REACH, WILL CONTINUE TO MONITOR.
[2019-10-08] MEDS: Dyna-Hex 2% Top Sol 2oz TOPIC SCH (20:05)
[2019-10-08] MEDS: Atorvastatin 20mg tab ORAL SCH (20:39)
--- NOTE | 2019-10-08 20:40 | NUR ---
NURSE NOTES: CHANGED HEPARIN RATE TO 22 UNIT/KG/HR PER PROTOCOLS, WILL CONTINUE TO MONITOR.
[2019-10-08] MEDS: Levemir Flexpen SUBQ SCH (20:46)
--- NOTE | 2019-10-08 20:55 | Cardiology Progress Note ---
Assessment/Plan Assessment/Plan 1. Alex/asystole cardiopulmonary arrest, possible diagnosis hypoxemia due to significant right pleural effusion. 2D echocardiography with LVEF approximately 40%. RV systolic function is significantly reduced. RV systolic pressure approximately 40 mmHg. On heparin gtt. 2. Atrial flutter with rapid ventricular response, responded to Cardizem. 3. Hypertension, controlled. 4. End-stage renal disease 5. Coronary artery disease, status post coronary artery bypass graft surgery at [facility]. 6. Right pleural effusion, unilateral. 7. Peripheral vascular disease, status post right BKA. 8. Malnutrition. 9. Diabetes mellitus. Objective Last 24 Hour Vital Signs Date Time Temp Pulse Resp B/P (MAP) Pulse Ox O2 Delivery O2 Flow Rate FiO2 10/08/19 20:39 96 110/57 10/08/19 20:31 110 27 100 10/08/19 19:01 124 25 100 10/08/19 19:00 121 21 102/80 (87) 96 10/08/19 18:30 122 23 127/80 (96) 100 10/08/19 18:25 120 121/56 10/08/19 18:00 119 24 131/64 (86) 98 10/08/19 18:00 121/56 10/08/19 17:10 123 26 100 10/08/19 17:00 117 20 113/75 (88) 100 10/08/19 16:00 99.4 136 27 129/95 (106) 93 10/08/19 16:00 Mechanical Ventilator Mechanical Ventilator 10/08/19 16:00 137 10/08/19 15:27 124 27 100 10/08/19 15:14 99.5 10/08/19 15:11 100 10/08/19 15:00 136 26 154/97 (116) 75 10/08/19 14:00 110 19 129/75 (93) 99 10/08/19 13:07 124 24 35 10/08/19 13:00 108 0 127/70 (89) 100 10/08/19 12:00 133 10/08/19 12:00 100.5 126 20 135/78 (97) 100 10/08/19 12:00 35 10/08/19 12:00 Mechanical Ventilator Mechanical Ventilator 10/08/19 11:00 117 21 123/81 (95) 100 10/08/19 10:41 122 32 35 10/08/19 10:30 107 19 119/82 (94) 100 10/08/19 10:00 114 19 121/59 (79) 100 10/08/19 09:45 112 24 129/70 (89) 100 10/08/19 09:30 109 20 112/58 (76) 100 10/08/19 09:27 101 28 35 10/08/19 09:15 121 22 129/65 (86) 99 10/08/19 09:00 21 129/65 Endotracheal Tube 35 10/08/19 09:00 103 21 120/68 (85) 100 10/08/19 08:45 21 120/68 Endotracheal Tube 35 10/08/19 08:45 102 21 106/69 (81) 100 10/08/19 08:30 105 21 124/66 (85) 100 10/08/19 08:00 88 10/08/19 08:00 99.8 96 21 112/66 (81) 100 10/08/19 08:00 20 121/50 Endotracheal Tube 35 10/08/19 08:00 35 10/08/19 08:00 Mechanical Ventilator Mechanical Ventilator 10/08/19 07:53 100 10/08/19 07:30 98 19 105/64 (78) 100 10/08/19 07:14 99 22 35 10/08/19 07:00 97 21 118/69 (85) 98 10/08/19 07:00 20 98/52 Endotracheal Tube 35 10/08/19 06:30 99 20 109/58 (75) 100 10/08/19 06:15 102 20 117/60 (79) 100 10/08/19 06:00 92 22 108/68 (81) 98 10/08/19 06:00 20 117/74 Mechanical Ventilator 35 10/08/19 05:52 94 107/57 10/08/19 05:45 99 20 107/57 (74) 100 10/08/19 05:35 22 117/74 Mechanical Ventilator 35 10/08/19 05:30 89 19 117/69 (85) 99 10/08/19 05:15 96 22 104/73 (83) 98 10/08/19 05:00 20 115/64 Mechanical Ventilator 10/08/19 05:00 103 21 115/54 (74) 100 10/08/19 04:57 81 20 35 10/08/19 04:45 103 18 109/51 (70) 100 10/08/19 04:30 101 18 114/64 (81) 99 10/08/19 04:15 98 19 115/53 (73) 99 10/08/19 04:00 99.8 98 21 97/63 (74) 99 10/08/19 04:00 16 115/53 Mechanical Ventilator 35 10/08/19 04:00 Mechanical Ventilator Mechanical Ventilator 10/08/19 04:00 96 10/08/19 04:00 35 10/08/19 03:45 106 23 112/55 (74) 100 10/08/19 03:30 88 18 99/47 (64) 98 10/08/19 03:29 89 19 99 Mechanical Ventilator 35 10/08/19 03:26 89 19 35 10/08/19 03:15 92 19 100/47 (64) 97 10/08/19 03:00 90 19 100/47 (64) 98 10/08/19 03:00 16 100/47 Mechanical Ventilator 35 10/08/19 02:30 90 19 103/54 (70) 98 10/08/19 02:00 16 107/61 Mechanical Ventilator 35 10/08/19 02:00 89 19 107/61 (76) 98 10/08/19 01:30 93 19 103/62 (76) 99 10/08/19 01:00 83 19 98/54 (69) 98 10/08/19 01:00 16 98/58 Mechanical Ventilator 35 10/08/19 00:45 16 94/46 Mechanical Ventilator 35 10/08/19 00:45 83 20 94/46 (62) 98 10/08/19 00:30 88 13 91/45 (60) 100 10/08/19 00:30 16 98/45 Mechanical Ventilator 35 10/08/19 00:15 89 16 99/53 (68) 100 10/08/19 00:15 16 99/53 Mechanical Ventilator 35 10/08/19 00:00 89 10/08/19 00:00 35 10/08/19 00:00 89 16 99/49 (66) 100 10/08/19 00:00 16 99/49 Mechanical Ventilator 35 10/08/19 00:00 Mechanical Ventilator Mechanical Ventilator 10/07/19 23:45 102 16 97/50 (66) 100 10/07/19 23:30 119 16 102/71 (81) 100 10/07/19 23:19 16 111/66 Mechanical Ventilator 35 10/07/19 23:18 115 111/50 10/07/19 23:15 118 16 111/66 (81) 100 10/07/19 23:13 111 19 35 10/07/19 23:00 116 26 111/50 (70) 100 10/07/19 23:00 16 111/50 Mechanical Ventilator 35 10/07/19 22:45 116 23 95/79 (84) 100 10/07/19 22:30 119 19 104/63 (77) 100 10/07/19 22:15 121 18 116/63 (80) 100 10/07/19 22:00 118 16 109/63 (78) 100 10/07/19 22:00 16 116/63 Mechanical Ventilator 35 10/07/19 21:45 120 16 106/62 (77) 100 10/07/19 21:30 121 16 105/66 (79) 100 10/07/19 21:15 121 16 111/67 (82) 100 10/07/19 21:00 16 106/62 Mechanical Ventilator 35 10/07/19 21:00 129 16 121/64 (83) 100 10/07/19 20:54 124 19 35 Intake and Output 10/07/19 10/08/19 19:00 07:00 Intake Total 1214.151 ml 1081.307 ml Balance 1214.151 ml 1081.307 ml Free Water 100 ml IV Total 559.151 ml 441.307 ml Tube Feeding 315 ml 540 ml Other 340 ml 2D Echo: LVEF 45%, Dilated RV with reduced function, RVSP ~40 mmHg Laboratory Tests Test 10/08/19 04:00 10/08/19 05:49 10/08/19 12:00 10/08/19 19:50 White Blood Count 13.1 K/UL (4.8-10.8) H Red Blood Count 3.51 M/UL (4.70-6.10) L Hemoglobin 10.4 G/DL (14.2-18.0) L Hematocrit 33.7 % (42.0-52.0) L Mean Corpuscular Volume 96 FL (80-99) Mean Corpuscular Hemoglobin 29.5 PG (27.0-31.0) Mean Corpuscular Hemoglobin Concent 30.8 G/DL (32.0-36.0) L Red Cell Distribution Width 16.6 % (11.6-14.8) H Platelet Count 176 K/UL (150-450) Mean Platelet Volume 6.5 FL (6.5-10.1) Neutrophils (%) (Auto) 82.8 % (45.0-75.0) H Lymphocytes (%) (Auto) 6.2 % (20.0-45.0) L Monocytes (%) (Auto) 8.7 % (1.0-10.0) Eosinophils (%) (Auto) 1.0 % (0.0-3.0) Basophils (%) (Auto) 1.4 % (0.0-2.0) Activated Partial Thromboplast Time 62 SEC (23-33) H 98 SEC (23-33) H 50 SEC (23-33) H Sodium Level 123 MMOL/L (136-145) L Potassium Level 4.3 MMOL/L (3.5-5.1) Chloride Level 88 MMOL/L (98-107) L Carbon Dioxide Level 25 MMOL/L (21-32) Anion Gap 10 mmol/L (5-15) Blood Urea Nitrogen 35 mg/dL (7-18) H Creatinine 7.0 MG/DL (0.55-1.30) H Estimat Glomerular Filtration Rate 9.6 mL/min (>60) Glucose Level 175 MG/DL (74-106) H Calcium Level 7.6 MG/DL (8.5-10.1) L Triglycerides Level 89 MG/DL (30-150) POC Whole Blood Glucose Pending Microbiology Date/Time Source Procedure Growth Status 10/06/19 05:20 Penis Gram Stain - Final Complete 10/06/19 05:20 Wound Culture - Final Morganella Morg Spp Morganii Staphylococcus Sp Coag Neg Complete 10/06/19 05:20 Leg Left Gram Stain - Final Resulted 10/06/19 05:20 Wound Culture - Preliminary Gram Negative Bacillus 1 Gram Negative Bacillus 2 Resulted Objective HEENT: Atraumatic and normocephalic. Anicteric. Conjunctivae pallor is evident. NECK: JVP cannot be assessed in view of intubation. CARDIOVASCULAR: Normal S1, S2, currently irregular with no murmurs, gallops, or rubs. LUNGS: Diminished breath sounds in the right base, increased dullness on percussion. ABDOMEN: Soft, nontender, and nondistended. No hepatosplenomegaly. Positive bowel sounds. EXTREMITIES: Right BKA, otherwise left lower extremity with 1 to 2+ pitting edema. Eugene Cameron MD Oct 08, 2019 20:55
--- NOTE | 2019-10-08 21:00 | NUR ---
NURSE NOTES: le: SEEN THE PATIENT BY DR. WOOD, NO NEW ORDER STATUS.
--- NOTE | 2019-10-08 23:05 | NUR ---
NURSE NOTES: PATIENT CALM, NO RESISTANCE TO CARE, WILL CONTINUE TO MONITOR.
--- NOTE | 2019-10-08 23:26 | NUR ---
NURSE NOTES: PATIENT CALM, ASLEEP STATUS, DISCONTINUED RESTRAINTS, WILL CONTINUE TO MONITOR.
[2019-10-09] VITALS (26 sets, daily range): BP systolic 92–128; BP diastolic 43–75
[2019-10-09] MEDS ORDERED: Heparin 5000 units/ml inj IV SCH (04:00)
[2019-10-09] MEDS: Heparin 25,000u/D5W 500ml 500 ML IV SCH ×4 (04:01→19:50)
--- NOTE | 2019-10-09 04:05 | NUR ---
NURSE NOTES: PATIENT OPEN EYES, MORNING CARE AND ORAL CARE WAS DONE, TRIED TO TOUCH LINE AND COMBATIVE TO CARE STATUS, PLACED 2 POINT SOFT RESTRAINTS, WILL CONTINUE TO MONITOR.
--- NOTE | 2019-10-09 04:21 | NUR ---
NURSE NOTES: TEMP 101F NOTED, GIVEN TYLENOL 650MG VIA OGT, APPLIED COOLING MEASURE, WILL CONTINUE TO MONITOR.
[2019-10-09] MEDS: dilTIAZem HCl 90mg tab ORAL SCH ×3 (05:46→17:01)
[2019-10-09] MEDS: NovoLOG Insulin Flexpen SUBQ SCH ×4 (06:03→20:57)
--- NOTE | 2019-10-09 06:10 | NUR ---
NURSE NOTES: PT'S VISITED INFORMED PT'S TRANSFER THAT DID NOT KNOW STATUS, WILL ENDORSE TO DAY SHIFT.
--- NOTE | 2019-10-09 07:23 | NUR ---
NURSE HAND-OFF REPORT: Latest Vital Signs: Temperature 99.1 , Pulse 67 , B/P 108 /64 , Respiratory Rate 23 , O2 SAT 96 , Mechanical Ventilator, O2 Flow Rate . Vital Sign Comment: EKG Rhythm: a-fib w/bbb Rhythm change?: N Notified?: Shawn KELLER MD Response: Latest Roman Fall Score: 70 Fall Risk: High Risk Safety Measures: Call light Within Reach, Bed Alarm Zone 1, Side Rails Side Rails x3, Bed position Low and Locked. Fall Precautions: Yellow Socks Door Sign Patient Fall Education Report given to SHANI LI.
--- NOTE | 2019-10-09 07:24 | NUR ---
NURSE NOTES: Pt received from SHANI Patel. Pt is asleep in bed, opens eyes briefly when called by name, facial grimacing noted in response to pain simulation, unable to follow commands. bilat pupils 3mm with sluggish light rxn. Pt noted in Afib with BBB to monitor tech. Bilateral radial and left dorsalis pedis pulses 1+. Pt is mechanically ventilated with 7.5 ETT noted 26 cm at the lips with the following settings: AC 16 TV 500 FiO2 50% Peep 5. All lung cruz noted with crackles upon auscultation. GT noted clamped at this time for synthroid administered approximately an hour ago- TF resumed with Nepro at 45 cc/hr - 10 cc of gastric residuals noted. Abd is soft, round, and non-tender with active bowel sounds to all quadrants. Pt is anuric - last HD session was yesterday - JOEL AV shunt noted with bruits and thrills - dressing reapplied- noted dry and intact with bleeding. Skin alterations noted. Pt has a R subclavian permacath and a R femoral TLC with dry and intact dressing. Heparin gtt currently running at 24 units/kg/hr through the R fem. No bleeding or bruising observed at this time. Pt is on [employer] restraints- bilateral radial pulses are palpable - skin to both wrists intact without erythema. Per SHANI Patel, pt was given tylenol for fever of 101 F over night - temp is currently 98.6 F - pt also noted with copious, thick, respiratory secretions- multiple wounds - possible osteomyelitis per foot Xray - SBP noted fluctuating between 90-100 mmHg - will f/u w/ Dr Wong regarding ID consult for possible sepsis evaluation. Bed in lowest position, alarm on, side rails up x 2, call light within reach. Will continue to monitor. Addendum: 10/10/19 at 0915 by Taty Florentino RN Amendment: JOEL AV shunt noted with bruits and thrills - dressing reapplied- noted dry and intact without* bleeding
[2019-10-09] MEDS: Losartan 50mg tab ORAL SCH (09:00)
[2019-10-09] MEDS: Carvedilol 12.5mg tab ORAL SCH (09:00)
[2019-10-09] MEDS: Renvela 2400 mg pkt ORAL SCH ×3 (09:24→17:01)
[2019-10-09] MEDS: Aspirin Baby 81mg ORAL SCH (09:24)
--- NOTE | 2019-10-09 10:00 | NUR ---
NURSE NOTES: Dr Wong at bedside assessing pt. He was made aware pt has been febrile (101 F) for past few days, copious secretions, pt has been failing weaning trials, SBP 88-92 - also made aware that all BP meds were held this morning. Sputum and blood culture orders placed. Hold CTA at this time until pt is stable for transport to procedure and hold discharge per Dr Wong. Venous duplex also ordered to rule out DVT. Dr Wong states he will place order for ID consult.
--- NOTE | 2019-10-09 10:42 | NUR ---
NURSE NOTES: Spoke with RONIT Andersen - let her know that Dr Wong requested to cancel discharge for today.
--- NOTE | 2019-10-09 11:00 | NUR ---
NURSE NOTES: PTT noted >150 sec - heparin gtt placed on hold for 60 min per protocol - apa notified from pharmacy and states she will send new label for rate change at 1200.
--- NOTE | 2019-10-09 11:13 | NUR ---
NURSE NOTES: Dr Mcdonald in the unit assessing pt at bedside and reviewing labs/chart. Dr Mcdonald made aware that BP meds were held today and order placed to hold BP meds for SBP <100 - HD session also ordered for tomorrow. Spoke with Jeferson from [facility] nephrology - HD session scheduled for tomorrow.
--- NOTE | 2019-10-09 11:14 | Nephrology Progress Note ---
Assessment/Plan Assessment/Plan: A/P 1) Resp FL - intubated on vent per pulm mgmt 2) ESRD- HD ordered for tomorrow, 2 L UF 3) Sepsis- multifact, ID and gen surgery 4) Hypotension- UF reduced and hold parameters placed for BP meds Subjective Date patient seen: Oct 09, 2019 Time patient seen: 11:12 ROS Limited/Unobtainable: Yes Allergies: Coded Allergies: Dust (Verified Allergy, Unknown, 06/06/19) Subjective Patient remains intubated in the ICU Objective Last 24 Hour Vital Signs Date Time Temp Pulse Resp B/P (MAP) Pulse Ox O2 Delivery O2 Flow Rate FiO2 10/09/19 10:38 40 10/09/19 10:35 65 18 40 10/09/19 10:00 66 19 96/55 (69) 100 10/09/19 09:00 65 19 98/53 (68) 100 10/09/19 09:00 98/53 10/09/19 09:00 98/53 10/09/19 09:00 62 98/53 10/09/19 08:00 Mechanical Ventilator 10/09/19 08:00 66 10/09/19 08:00 98.6 68 21 95/60 (72) 98 10/09/19 08:00 50 10/09/19 07:00 67 23 108/64 (79) 96 10/09/19 07:00 65 19 50 10/09/19 06:00 85 21 120/62 (81) 98 10/09/19 05:46 87 104/46 10/09/19 05:01 90 20 50 10/09/19 05:00 99.1 89 20 110/57 (74) 95 10/09/19 04:51 100.3 10/09/19 04:00 88 10/09/19 04:00 50 10/09/19 04:00 101.0 88 28 126/61 (82) 100 10/09/19 04:00 Mechanical Ventilator Mechanical Ventilator 10/09/19 03:44 84 22 50 10/09/19 03:00 92 20 126/66 (86) 100 10/09/19 02:00 97 23 104/48 (66) 99 10/09/19 01:00 90 31 128/75 (92) 99 10/09/19 00:34 91 25 85 10/09/19 00:00 92 10/09/19 00:00 99.0 92 27 114/47 (69) 100 10/09/19 00:00 Mechanical Ventilator Mechanical Ventilator 10/09/19 00:00 85 10/08/19 23:44 97 106/50 10/08/19 23:00 94 28 116/62 (80) 93 10/08/19 22:43 85 10/08/19 22:42 81 23 100 10/08/19 22:00 88 20 91/57 (68) 95 10/08/19 21:00 101 28 103/65 (78) 99 10/08/19 20:39 96 110/57 10/08/19 20:31 110 27 100 10/08/19 20:00 100 10/08/19 20:00 Mechanical Ventilator Mechanical Ventilator 10/08/19 20:00 99.0 101 22 109/53 (71) 96 10/08/19 19:43 105 10/08/19 19:01 124 25 100 10/08/19 19:00 121 21 102/80 (87) 96 10/08/19 18:30 122 23 127/80 (96) 100 10/08/19 18:25 120 121/56 10/08/19 18:00 119 24 131/64 (86) 98 10/08/19 18:00 121/56 10/08/19 17:10 123 26 100 10/08/19 17:00 117 20 113/75 (88) 100 10/08/19 16:00 99.4 136 27 129/95 (106) 93 10/08/19 16:00 Mechanical Ventilator Mechanical Ventilator 10/08/19 16:00 137 10/08/19 15:27 124 27 100 10/08/19 15:11 100 10/08/19 15:00 136 26 154/97 (116) 75 10/08/19 14:00 110 19 129/75 (93) 99 10/08/19 13:07 124 24 35 10/08/19 13:00 108 0 127/70 (89) 100 10/08/19 12:00 133 10/08/19 12:00 100.5 126 20 135/78 (97) 100 10/08/19 12:00 35 10/08/19 12:00 Mechanical Ventilator Mechanical Ventilator Intake and Output 10/08/19 10/09/19 19:00 07:00 Intake Total 950.6134 ml 1197.683 ml Output Total 3500 ml Balance -2549.3866 ml 1197.683 ml IV Total 455.6134 ml 467.683 ml Tube Feeding 495 ml 450 ml Other 280 ml Output Hemodialysis UF 3500 ml # Bowel Movements 2 3 Laboratory Tests 10/08/19 12:00: Activated Partial Thromboplast Time 98H 10/08/19 19:50: Activated Partial Thromboplast Time 50H 10/09/19 02:40: Activated Partial Thromboplast Time 61H, Random Vancomycin Level 23.4 10/09/19 09:45: Activated Partial Thromboplast Time > 150*H Height (Feet): 5 Height (Inches): 6.00 Weight (Pounds): 173 EENT: normal ENT inspection Neck: normal alignment Cardiovascular: regular rhythm Respiratory/Chest: rhonchi - bilaterally Abdomen: non tender Edema: no edema noted Arm (L), no edema noted Arm (R), no edema noted Leg (L), no edema noted Leg (R), no edema noted Pedal (L), no edema noted Pedal (R), no edema noted Generalized Sandeep Talbot MD Oct 09, 2019 11:14
--- NOTE | 2019-10-09 12:00 | NUR ---
NURSE NOTES: Pt repositioned. noted afebrile at this time. no acute distress. Will continue to monitor. Addendum: 10/09/19 at 1540 by Taty Florentino RN Oral care also provided.
[2019-10-09] MEDS: Cefepime HCl 500 MG in D5W 55 ML IV SCH (12:48)
--- NOTE | 2019-10-09 13:17 | Pulmonology Progress Note ---
Subjective ROS Limited/Unobtainable: Yes Interval Events: Hypotensive today Constitutional: Reports: no symptoms HEENT: Repors: no symptoms Respiratory: Reports: no symptoms Cardiovascular: Reports: no symptoms Gastrointestinal/Abdominal: Reports: no symptoms Allergies: Coded Allergies: Dust (Verified Allergy, Unknown, 06/06/19) Objective Last 24 Hour Vital Signs Date Time Temp Pulse Resp B/P (MAP) Pulse Ox O2 Delivery O2 Flow Rate FiO2 10/09/19 12:30 80 114/58 10/09/19 11:00 66 24 92/52 (65) 100 10/09/19 10:38 40 10/09/19 10:35 65 18 40 10/09/19 10:00 66 19 96/55 (69) 100 10/09/19 09:00 65 19 98/53 (68) 100 10/09/19 09:00 98/53 10/09/19 09:00 98/53 10/09/19 09:00 62 98/53 10/09/19 08:41 65 15 40 10/09/19 08:00 Mechanical Ventilator 10/09/19 08:00 66 10/09/19 08:00 98.6 68 21 95/60 (72) 98 10/09/19 08:00 50 10/09/19 07:00 67 23 108/64 (79) 96 10/09/19 07:00 65 19 50 10/09/19 06:00 85 21 120/62 (81) 98 10/09/19 05:46 87 104/46 10/09/19 05:01 90 20 50 10/09/19 05:00 99.1 89 20 110/57 (74) 95 10/09/19 04:51 100.3 10/09/19 04:00 88 10/09/19 04:00 50 10/09/19 04:00 101.0 88 28 126/61 (82) 100 10/09/19 04:00 Mechanical Ventilator Mechanical Ventilator 10/09/19 03:44 84 22 50 10/09/19 03:00 92 20 126/66 (86) 100 10/09/19 02:00 97 23 104/48 (66) 99 10/09/19 01:00 90 31 128/75 (92) 99 10/09/19 00:34 91 25 85 10/09/19 00:00 92 10/09/19 00:00 99.0 92 27 114/47 (69) 100 10/09/19 00:00 Mechanical Ventilator Mechanical Ventilator 10/09/19 00:00 85 10/08/19 23:44 97 106/50 10/08/19 23:00 94 28 116/62 (80) 93 10/08/19 22:43 85 10/08/19 22:42 81 23 100 10/08/19 22:00 88 20 91/57 (68) 95 10/08/19 21:00 101 28 103/65 (78) 99 10/08/19 20:39 96 110/57 10/08/19 20:31 110 27 100 10/08/19 20:00 100 10/08/19 20:00 Mechanical Ventilator Mechanical Ventilator 10/08/19 20:00 99.0 101 22 109/53 (71) 96 10/08/19 19:43 105 10/08/19 19:01 124 25 100 10/08/19 19:00 121 21 102/80 (87) 96 10/08/19 18:30 122 23 127/80 (96) 100 10/08/19 18:25 120 121/56 10/08/19 18:00 119 24 131/64 (86) 98 10/08/19 18:00 121/56 10/08/19 17:10 123 26 100 10/08/19 17:00 117 20 113/75 (88) 100 10/08/19 16:00 99.4 136 27 129/95 (106) 93 10/08/19 16:00 Mechanical Ventilator Mechanical Ventilator 10/08/19 16:00 137 10/08/19 15:27 124 27 100 10/08/19 15:11 100 10/08/19 15:00 136 26 154/97 (116) 75 10/08/19 14:00 110 19 129/75 (93) 99 Intake and Output 10/08/19 10/09/19 19:00 07:00 Intake Total 950.6134 ml 1197.683 ml Output Total 3500 ml Balance -2549.3866 ml 1197.683 ml IV Total 455.6134 ml 467.683 ml Tube Feeding 495 ml 450 ml Other 280 ml Output Hemodialysis UF 3500 ml # Bowel Movements 2 3 General Appearance: no acute distress HEENT: normocephalic Respiratory: chest wall non-tender, lungs clear Cardiovascular: normal peripheral pulses, normal rate Abdomen: normal bowel sounds Microbiology Date/Time Source Procedure Growth Status 10/08/19 14:15 Blood Blood Culture - Preliminary Resulted Laboratory Tests 10/08/19 19:50: Activated Partial Thromboplast Time 50H 10/09/19 02:40: Activated Partial Thromboplast Time 61H, Random Vancomycin Level 23.4 10/09/19 09:45: Activated Partial Thromboplast Time > 150*H Current Medications Medications (Trade) Dose Ordered Sig/Monica Route PRN Reason Start Time Stop Time Status Last Admin Dose Admin Acetaminophen (Tylenol) 650 mg Q4H PRN ORAL Mild Pain (Pain Scale 1-3) 10/03/19 14:00 11/01/19 13:59 10/05/19 09:51 Acetaminophen (Tylenol) 650 mg Q4H PRN ORAL Temp >100.5 10/03/19 14:00 11/01/19 13:59 10/09/19 04:21 Aspirin (ASA) 81 mg DAILY ORAL 10/04/19 09:00 11/17/19 08:59 10/09/19 09:24 Atorvastatin Calcium (Lipitor) 20 mg BEDTIME ORAL 10/03/19 21:00 12/31/19 20:59 10/08/19 20:39 Beclomethasone Dipropionate (Qvar 40 Inhaler) 1 puff BIDRT INH 10/03/19 22:00 11/02/19 21:59 Carvedilol (Coreg) 37.5 mg EVERY 12 HOURS ORAL 10/03/19 21:00 11/01/19 20:59 10/08/19 20:39 Cefepime HCl 500 mg/Dextrose 55 ml @ 110 mls/hr Q24H IV 10/06/19 12:00 10/13/19 11:59 10/09/19 12:48 Chlorhexidine Gluconate (Dina-Hex 2%) 1 applic DAILY@1999 TOPIC 10/03/19 20:00 01/01/20 19:59 10/08/19 20:05 Collagenase (Santyl) 1 applic DAILY TOPIC 10/03/19 15:00 01/01/20 14:59 10/09/19 09:26 Dextrose (Dextrose 50%) 25 ml Q30M PRN IV Hypoglycemia 10/03/19 14:15 12/31/19 20:14 10/05/19 10:21 Dextrose (Dextrose 50%) 50 ml Q30M PRN IV Hypoglycemia 10/03/19 14:15 12/31/19 20:14 10/05/19 05:31 Diltiazem HCl (Cardizem Tab) 90 mg Q6HR ORAL 10/03/19 18:00 11/01/19 20:14 10/09/19 12:30 Diphenhydramine HCl (Benadryl) 25 mg Q6H PRN ORAL Itching/Pruritis 10/03/19 14:15 11/01/19 20:14 Diphenoxylate HCl/ Atropine (Lomotil) 2.5 mg Q4H PRN ORAL Diarrhea 10/03/19 14:00 11/01/19 13:59 Haloperidol Lactate 5 mg/ Dextrose 56 ml @ 224 mls/hr Q6H PRN IVPB Agitation 10/08/19 10:30 11/22/19 10:29 10/08/19 15:10 Heparin Sodium/ Dextrose 500 ml @ 31.57 mls/ hr ADJUST PER PROTOCOL IV 10/09/19 12:00 11/07/19 20:29 10/09/19 12:21 Hydromorphone HCl (Dilaudid) 2 mg Q4H PRN IVP For Pain (4-10) 10/03/19 14:00 10/10/19 01:59 Insulin Aspart (NovoLOG) BEFORE MEALS AND HS SUBQ 10/03/19 16:30 12/31/19 20:59 10/09/19 12:30 Insulin Detemir (Levemir) 18 units BEDTIME SUBQ 10/07/19 21:00 01/05/20 20:59 10/08/19 20:46 Isosorbide Dinitrate (Isordil) 10 mg THREE TIMES A DAY ORAL 10/03/19 18:00 11/01/19 20:14 10/04/19 18:31 Levothyroxine Sodium (Synthroid) 75 mcg ACBREAKFAST ORAL 10/04/19 06:30 11/03/19 06:29 10/09/19 05:46 Lorazepam (Ativan 2mg/ml 1ml) 1 mg Q3H PRN IV For Anxiety 10/03/19 14:00 10/10/19 13:59 Losartan Potassium (Cozaar) 100 mg DAILY ORAL 10/04/19 09:00 11/02/19 08:59 Nitroglycerin (Ntg) 0.4 mg Q5M PRN SL Prn Chest Pain 10/03/19 13:50 11/01/19 20:14 Norepinephrine Bitartrate 8 mg/ Dextrose 250 ml @ 0 mls/hr Q24H IV 10/03/19 14:00 11/02/19 13:59 10/06/19 23:30 Ondansetron HCl (Zofran) 4 mg Q6H PRN IVP Nausea & Vomiting 10/03/19 14:00 11/01/19 13:59 Polyethylene Glycol (Miralax) 17 gm DAILYPRN PRN ORAL Constipation 10/03/19 14:00 11/01/19 13:59 Sevelamer Carbonate (Renvela) 2,400 mg THREE TIMES A DAY ORAL 10/06/19 18:00 01/04/20 17:59 10/09/19 09:24 Vancomycin HCl ([facility] pharmacy to dose) 1 ea DAILY PRN MISC Per rx protocol 10/05/19 11:15 11/04/19 11:14 Vancomycin HCl 1 gm/Sodium Chloride 275 ml @ 183.708 mls/hr ONCE IVPB 10/11/19 09:00 10/11/19 10:00 Assessment/Plan Assessment/Plan IMPRESSION: 1. ESRD, on dialysis. 2. Pulmonary edema. 3. Cardiac arrhythmias with A-flutter/AFib. 4. Status post cardiopulmonary arrest. 5. Respiratory failure 6. Previous right BKA. DISCUSSION: Continue current Ventilator settings, wean as tolerated weaning to resume today Lighten sedation DC propofol May need pressors Continue antibiotics Check venous duplex Consult wound care Consult ID PPX HD per Nephrology Cardiology following. may transfer to outside (contracted ) facility Ming Wong MD Oct 09, 2019 13:17
--- NOTE | 2019-10-09 14:00 | NUR ---
NURSE NOTES: Pt repositioned. No distress noted. Will continue to monitor.
--- NOTE | 2019-10-09 14:21 | Diagnostic Imaging Report ---
EXAM: ULTRASOUND Venous Duplex Scan Milind Leg CLINICAL HISTORY: Leg pain and edema. Patient status post right below knee amputation. COMPARISON: None TECHNIQUE: Doppler examination include grayscale images obtained with and without compression, and color and spectral doppler analysis. FINDINGS: Doppler examination shows normal spontaneity, phasicity, compressibility in the visualized segments of both lower extremities. There is no thrombus identified by grayscale. Normal color and spectral flow is identified. There is no evidence of valvular incompetency or insufficiency. IMPRESSION: NO EVIDENCE OF DVT NOTED IN THE VISUALIZED SEGMENTS OF BOTH LOWER EXTREMITIES. PATIENT IS STATUS POST RIGHT BELOW KNEE AMPUTATION.
--- NOTE | 2019-10-09 14:34 | NUR ---
TRANSFER HELD~PATIENT NOT STABLE; LOW BP CASE MANAGEMENT:REVIEW 10/09/19 SI: AFIB/FLUTTER. RESPIRATORY FAILURE S/P CARDIOPULMONARY ARREST 98.6 66 21 95/60 98% ON VENT SUPPORT @ 50% FIO2 PTT 150 IS: PROPOFOL GTT HEPARIN GTT IV ANCEF QD CARDIZEM PO Q6HR NOVOLOG SQ AC+HS LEVEMIR SQ QHSASA PO QD SYNTHROID PO QAC IV HALDOL Q6HR/PRN : ICU STATUS DCP: PATIENT IS FROM HOME PLAN: CONTROL BP~LOW TRANSFER TO [facility] WHEN STABLE CASE MANAGEMENT:REVIEW 10/08/19 SI: AFIB/FLUTTER. RESPIRATORY FAILURE S/P CARDIOPULMONARY ARREST 100.5 133 135/78 100% ON MECHANICAL VENT @ 35% FIO2 PTT 150 IS: PROPOFOL GTT HEPARIN GTT IV ANCEF QD CARDIZEM PO Q6HR NOVOLOG SQ AC+HS LEVEMIR SQ QHSASA PO QD SYNTHROID PO QAC IV HALDOL Q6HR/PRN : ICU STATUS DCP: PATIENT IS FROM HOME PLAN: TRANSFER TO [facility]
--- NOTE | 2019-10-09 14:40 | NUR ---
NURSE NOTES: left message for Dr Wong regarding positive blood culture results. awaiting call back.
--- NOTE | 2019-10-09 14:44 | NUR ---
*-* INSURANCE *-* UPDATED CLINICALS AND REVIEWS HAVE BEEN FAXED TO: [employer] P:[phone] F:[phone] AUTH#[id number]
--- NOTE | 2019-10-09 16:00 | NUR ---
NURSE NOTES: Pt repositioned, oral care provided, no distress noted.
--- NOTE | 2019-10-09 16:44 | Surgery Progress Note ---
Surgery Progress Note Subjective Additional Comments remains septic on support minimal responsive febrile blood cultures sent Objective Last 24 Hour Vital Signs Date Time Temp Pulse Resp B/P (MAP) Pulse Ox O2 Delivery O2 Flow Rate FiO2 10/09/19 16:00 66 10/09/19 15:00 66 18 98/54 (69) 100 10/09/19 14:00 65 20 101/58 (72) 100 10/09/19 13:50 91/57 10/09/19 13:35 60 10/09/19 13:28 65 19 40 10/09/19 13:00 66 16 100/50 (67) 100 10/09/19 13:00 88/49 10/09/19 12:30 80 114/58 10/09/19 12:00 40 10/09/19 12:00 Mechanical Ventilator 10/09/19 12:00 98.6 66 15 103/54 (70) 100 10/09/19 12:00 78 10/09/19 11:00 66 24 92/52 (65) 100 10/09/19 10:38 40 10/09/19 10:35 65 18 40 10/09/19 10:00 66 19 96/55 (69) 100 10/09/19 09:00 65 19 98/53 (68) 100 10/09/19 09:00 98/53 10/09/19 09:00 98/53 10/09/19 09:00 62 98/53 10/09/19 08:41 65 15 40 10/09/19 08:00 Mechanical Ventilator 10/09/19 08:00 66 10/09/19 08:00 98.6 68 21 95/60 (72) 98 10/09/19 08:00 50 10/09/19 07:00 67 23 108/64 (79) 96 10/09/19 07:00 65 19 50 10/09/19 06:00 85 21 120/62 (81) 98 10/09/19 05:46 87 104/46 10/09/19 05:01 90 20 50 10/09/19 05:00 99.1 89 20 110/57 (74) 95 10/09/19 04:51 100.3 10/09/19 04:00 88 10/09/19 04:00 50 10/09/19 04:00 101.0 88 28 126/61 (82) 100 10/09/19 04:00 Mechanical Ventilator Mechanical Ventilator 10/09/19 03:44 84 22 50 10/09/19 03:00 92 20 126/66 (86) 100 10/09/19 02:00 97 23 104/48 (66) 99 10/09/19 01:00 90 31 128/75 (92) 99 10/09/19 00:34 91 25 85 10/09/19 00:00 92 10/09/19 00:00 99.0 92 27 114/47 (69) 100 10/09/19 00:00 Mechanical Ventilator Mechanical Ventilator 10/09/19 00:00 85 10/08/19 23:44 97 106/50 10/08/19 23:00 94 28 116/62 (80) 93 10/08/19 22:43 85 10/08/19 22:42 81 23 100 10/08/19 22:00 88 20 91/57 (68) 95 10/08/19 21:00 101 28 103/65 (78) 99 10/08/19 20:39 96 110/57 10/08/19 20:31 110 27 100 10/08/19 20:00 100 10/08/19 20:00 Mechanical Ventilator Mechanical Ventilator 10/08/19 20:00 99.0 101 22 109/53 (71) 96 10/08/19 19:43 105 10/08/19 19:01 124 25 100 10/08/19 19:00 121 21 102/80 (87) 96 10/08/19 18:30 122 23 127/80 (96) 100 10/08/19 18:25 120 121/56 10/08/19 18:00 119 24 131/64 (86) 98 10/08/19 18:00 121/56 10/08/19 17:10 123 26 100 10/08/19 17:00 117 20 113/75 (88) 100 I&O Intake and Output 10/08/19 10/09/19 19:00 07:00 Intake Total 950.6134 ml 1197.683 ml Output Total 3500 ml Balance -2549.3866 ml 1197.683 ml IV Total 455.6134 ml 467.683 ml Tube Feeding 495 ml 450 ml Other 280 ml Output Hemodialysis UF 3500 ml # Bowel Movements 2 3 Dressing: other Wound: other Cardiovascular: RSR Respiratory: decreased breath sounds Abdomen: soft, non-tender, present bowel sounds Extremities: edema, no cyanosis Laboratory Tests Test 10/08/19 19:50 10/09/19 02:40 10/09/19 09:45 Activated Partial Thromboplast Time 50 SEC (23-33) H 61 SEC (23-33) H > 150 SEC (23-33) *H Random Vancomycin Level 23.4 ug/mL Plan Problems: (1) Cardiopulmonary arrest Assessment & Plan: in ICU on support weaning labs noted cont current care Assessment of pt's skin limited as pt is stable at present to be turned in bed. Generalized edemae noted. Shaft of penis is swollen,erythematous and oozing small amt purulent exudate from meatus. At head of Penis is an irregular shaped wound with 100% slough at base of wound(L)3cm x (W)2.5cm. Edges are erythematous with surrounding erythema shaft. Laterally, but in close proximity is small pustule(L)0.5cm x (W)0.4cm.Along foreskin is erythematous and swollen. 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 No surrounding erythema or evidence of further skin breakdown noted. L Lower ext noted to have very snugged sharee wrap which was removed. Xerosis skin with Haemosiderin deposits noted to LLE. LLE washed and moisturized to better assess wounds. Two areas of dry pink epithelial noted to dorsal and lateral L tibia. Linear Dry eschar noted to posterior L Knee (L)1.2cm x (W)9.5cm. No surrounding erythema or induration noted. Full thickness wound L Hallux(L)3cm x (W)2.5cm.Base of wound is 100% yellow slough. Margins are erythematous. Periwound is dark and indurated. Wound is malodorous. No exudate noted. L 5th TMA noted. At distal /lateral L foot is a Full Thickness wound(L)2cm x (W) 2.5cm. Base of wound is 80% mixed slough and eschar,20% carol. Edges are macerated. Small amt seropurulent exudate noted. Wound is malodorous. At Plantar aspect of L foot at 3rd and 4th metatarsal heads is a full thickness wound that is malodorous. (L)1.5cm x (W)1cm. Base of wound is mixed soft necrosis and slough. Small amt seropurulent exudate noted. Periwound skin is callused but no erythema noted. DTPI noted to L heel (L)3.1cm x (W)2cm. Base of injury is purpuric and fluctuant. Surrounding areas of L heel is boggy without erythema. Hyperpigmentation from previous wound noted to medial L malleolus. Will plan to assess Back and sacral area when pt is stable to be turned. Tx.Plan:Cleanse wound Penis with Saline. Apply Nickel thick layer of Santyl with saline moistened 2x2 gauze Daily and prn. Apply Bactroban to wounds on Penis TID as directed by . Cleanse Wounds L Foot with Saline. Apply Nickel Thick layer Santyl. Apply Saline moistened gauze to each wound. Cover with ABD pad. Wrap with Kerlix Daily and prn. Apply Cavilon Skin Barrier to posterior L Knee Daily and prn. Moisturize dry skin LLE daily with each drsg changes. Apply Cavilon Skin Barrier to L Heel daily. Apply Cavilon Skin Barrier to base of R BKA Stump. Cover with ABD Pad. Wrap with Kerlix every 3 days and prn. Apply Moisture Barrier Paste to sacrum. Cover with Optifoam drsg. Change every 3 days and prn. Reposition at least every 2hours or as tolerated. Off-load L Heel with Pillow. Off-load L BKA with Pillow. APM/NATHALY Mattress overlay. (2) Bilateral pleural effusion Assessment & Plan: Interim endotracheal intubation, endotracheal tube tip in good position projecting approximately 7 cm above the ravinder. Interim placement of an orogastric tube, tip of which projects beyond the edge of the image, position therefore indeterminate. Right jugular dialysis catheter is again demonstrated. Large right pleural effusion, mild interstitial edema bilaterally persist. Impression: Satisfactory endotracheal intubation. Patient's nurse notified at the time of interpretation Status post nasogastric intubation, tip below the diaphragm but otherwise position indeterminate. (3) CHF (congestive heart failure) (4) Hypoxia (5) ARF (acute renal failure) (6) Injury of left upper extremity (7) bleeding AV shunt (8) Diabetes (9) Hypertension, benign (10) Anemia in chronic kidney disease (11) Dialysis AV fistula malfunction (12) Abnormal laboratory test result (13) Respiratory distress (14) Hyperglycemia (15) Asthma (16) CHF exacerbation (17) Atrial flutter (18) End-stage renal disease (19) SVT (supraventricular tachycardia) Bolivar Barrios Oct 09, 2019 16:44
--- NOTE | 2019-10-09 18:00 | NUR ---
NURSE NOTES: Pt repositioned and cleaned. PTT sent down to lab.
--- NOTE | 2019-10-09 18:52 | NUR ---
NURSE NOTES: PTT results noted 81 - heparin gtt rate will remain the same per protocol - PTT ordered for tomorrow am.
--- NOTE | 2019-10-09 19:02 | NUR ---
NURSE HAND-OFF REPORT: Latest Vital Signs: Temperature 98.8 , Pulse 67 , B/P 95 /43 , Respiratory Rate 20 , O2 SAT 100 , Mechanical Ventilator, O2 Flow Rate . Vital Sign Comment: SBP 96 - no distress noted EKG Rhythm: A-fib w/bbb Rhythm change?: N MD Notified?: Dr Tung vance MD Response: n/a Latest Roamn Fall Score: 70 Fall Risk: High Risk Safety Measures: Call light Within Reach, Bed Alarm Zone 1, Side Rails Side Rails x3, Bed position Low and Locked. Fall Precautions: Yellow Socks Door Sign Patient Fall Education Report given to SHANI Patel.
--- NOTE | 2019-10-09 19:45 | NUR ---
NURSE NOTES: LE: SEEN THE PATIENT BY DR. WOOD THAT INFORMED MD REGARDING PT'S SITUATION.
[2019-10-09] MEDS: Dyna-Hex 2% Top Sol 2oz TOPIC SCH (19:46)
--- NOTE | 2019-10-09 19:50 | NUR ---
NURSE NOTES: LE: PATIENT OPEN EYES TO VOICE, RESPIRATION REGULAR ON ETT TO VENT AC 16/TV 500/FIO2 50%/PEEP 5, O2 SATURATION 100%, HR 'S/MIN SR W/BBB STATUS, OGT INTACT AND PATENT, NO N/V NOTED, ONGOING NEPRO AT 45L/HR VIA OGT, NO RESIDUE NOTED, KEPT HOB 30 DEGREES AND ASPIRATION PRECAUTION, ABDOMEN SOFT, NON TENDER, ANURIC STATUS, AV SHUNT TO LEFT UPPER ARM, NO BLEEDING STATUS, KEPT LEFT ARM PRECAUTION, RIGHT BKA STATUS, PERMA CATH TO RIGHT CHEST, TLC TO RIGHT FEMORAL, INTACT AND PATENT, ONGOING HEPARIN 20 UNIT/KG/HR VIA TLC, 2 POINT SOFT RESTRAINTS STATUS, MADE LOWER BED POSITION, ON P200 BED, BED ALARM AND LOCKED, PLACED CALL LIGHT WITHIN REACH, WILL CONTINUE TO MONITOR. Addendum: 10/09/19 at 2231 by HERNAN ZARAGOZA RN NURSE NOTES: LE: PATIENT OPEN EYES TO VOICE, RESPIRATION REGULAR ON ETT TO VENT AC 16/TV 500/FIO2 50%/PEEP 5, O2 SATURATION 100%, HR 'S/MIN A-FLUTTER W/BBB STATUS, OGT INTACT AND PATENT, NO N/V NOTED, ONGOING NEPRO AT 45L/HR VIA OGT, NO RESIDUE NOTED, KEPT HOB 30 DEGREES AND ASPIRATION PRECAUTION, ABDOMEN SOFT, NON TENDER, ANURIC STATUS, AV SHUNT TO LEFT UPPER ARM, NO BLEEDING STATUS, KEPT LEFT ARM PRECAUTION, RIGHT BKA STATUS, PERMA CATH TO RIGHT CHEST, TLC TO RIGHT FEMORAL, INTACT AND PATENT, ONGOING HEPARIN 20 UNIT/KG/HR VIA TLC, 2 POINT SOFT RESTRAINTS STATUS, MADE LOWER BED POSITION, ON P200 BED, BED ALARM AND LOCKED, PLACED CALL LIGHT WITHIN REACH, WILL CONTINUE TO MONITOR.
[2019-10-09] MEDS: Atorvastatin 20mg tab ORAL SCH (20:56)
[2019-10-09] MEDS: Levemir Flexpen SUBQ SCH (20:57)
[2019-10-09] MEDS: Qvar 40mcg Inhaler 6.8 gm INH SCH (22:00)
--- NOTE | 2019-10-09 22:10 | NUR ---
NURSE NOTES: REPOSITIONED, NO RESISTANCE TO CARE AT THIS TIME.
[2019-10-10] VITALS (37 sets, daily range): BP systolic 104–141; BP diastolic 49–95
--- NOTE | 2019-10-10 00:03 | NUR ---
NURSE NOTES: SUCTIONED, ORAL CARE WAS DONE, PATIENT ASLEEP STATUS, WILL CONTINUE TO MONITOR.
--- NOTE | 2019-10-10 00:13 | Cardiology Progress Note ---
Assessment/Plan Assessment/Plan LATE NOTE ENTRY DATE OF ENCOUNTER: Oct 09, 2019 TIME OF NOTE: 19:14 1. Septic shock, febrile, evidence for infected decubiti. Start pressors, hold off all BP meds, continue antibiotics, ID recommendations. 2. Alex/asystole cardiopulmonary arrest, possible diagnosis hypoxemia due to significant pulmonary edema and mostly large right pleural effusion. 2D echocardiography with LVEF approximately 40%. RV systolic function is significantly reduced. RV systolic pressure approximately 40 mmHg. On heparin gtt. 3. Atrial flutter with rapid ventricular response, off Cardizem due to hypotension. 4. End-stage renal disease 5. Coronary artery disease, status post coronary artery bypass graft surgery at [facility] [place]. 6. Right pleural effusion, R>L 7. Peripheral vascular disease, status post right BKA. 8. Malnutrition. 9. Diabetes mellitus. Subjective Subjective Atrial flutter with controlled ventricular response at 68. Hypotensive with MAP of 55. Objective Last 24 Hour Vital Signs Date Time Temp Pulse Resp B/P (MAP) Pulse Ox O2 Delivery O2 Flow Rate FiO2 10/09/19 23:00 83 26 126/65 (85) 99 10/09/19 22:52 65 19 50 10/09/19 22:00 82 20 125/56 (79) 100 10/09/19 21:30 86 20 112/67 (82) 100 10/09/19 21:09 67 21 50 10/09/19 21:00 72 16 98/45 (62) 100 10/09/19 20:00 98.6 67 20 110/55 (73) 100 10/09/19 20:00 Mechanical Ventilator 10/09/19 19:35 69 17 50 10/09/19 19:22 67 10/09/19 19:00 67 21 102/47 (65) 98 10/09/19 18:00 67 20 95/43 (60) 100 10/09/19 18:00 95/43 10/09/19 17:01 66 111/53 10/09/19 17:00 66 19 100/45 (63) 100 10/09/19 16:47 50 10/09/19 16:41 67 17 50 10/09/19 16:00 Mechanical Ventilator 10/09/19 16:00 66 10/09/19 16:00 98.8 66 21 104/59 (74) 100 10/09/19 16:00 60 8/20/20 15:00 66 18 98/54 (69) 100 10/09/19 15:00 66 26 40 10/09/19 14:00 65 20 101/58 (72) 100 10/09/19 13:50 91/57 10/09/19 13:35 60 10/09/19 13:28 65 19 40 10/09/19 13:00 66 16 100/50 (67) 100 10/09/19 13:00 88/49 10/09/19 12:30 80 114/58 10/09/19 12:00 40 10/09/19 12:00 Mechanical Ventilator 10/09/19 12:00 98.6 66 15 103/54 (70) 100 10/09/19 12:00 78 10/09/19 11:00 66 24 92/52 (65) 100 10/09/19 10:38 40 10/09/19 10:35 65 18 40 10/09/19 10:00 66 19 96/55 (69) 100 10/09/19 09:00 65 19 98/53 (68) 100 10/09/19 09:00 98/53 10/09/19 09:00 98/53 10/09/19 09:00 62 98/53 10/09/19 08:41 65 15 40 10/09/19 08:00 Mechanical Ventilator 10/09/19 08:00 66 10/09/19 08:00 98.6 68 21 95/60 (72) 98 10/09/19 08:00 50 10/09/19 07:00 67 23 108/64 (79) 96 10/09/19 07:00 65 19 50 10/09/19 06:00 85 21 120/62 (81) 98 10/09/19 05:46 87 104/46 10/09/19 05:01 90 20 50 10/09/19 05:00 99.1 89 20 110/57 (74) 95 10/09/19 04:51 100.3 10/09/19 04:00 88 10/09/19 04:00 50 10/09/19 04:00 101.0 88 28 126/61 (82) 100 10/09/19 04:00 Mechanical Ventilator Mechanical Ventilator 10/09/19 03:44 84 22 50 8/20/20 03:00 92 20 126/66 (86) 100 10/09/19 02:00 97 23 104/48 (66) 99 10/09/19 01:00 90 31 128/75 (92) 99 10/09/19 00:34 91 25 85 Intake and Output 10/09/19 10/10/19 19:00 07:00 Intake Total 890.7085 ml 356.28 ml Balance 890.7085 ml 356.28 ml Free Water 10 ml IV Total 340.7085 ml 126.28 ml Tube Feeding 540 ml 180 ml Other 50 ml # Bowel Movements 1 2D Echo: LVEF 45%, Dilated RV with reduced function, RVSP ~40 mmHg Laboratory Tests Test 10/09/19 02:40 10/09/19 05:39 10/09/19 09:45 10/09/19 12:23 Activated Partial Thromboplast Time 61 SEC (23-33) H > 150 SEC (23-33) *H Random Vancomycin Level 23.4 ug/mL POC Whole Blood Glucose 157 MG/DL (74-106) H Pending Test 10/09/19 17:50 Activated Partial Thromboplast Time 81 SEC (23-33) H Microbiology Date/Time Source Procedure Growth Status 10/08/19 14:15 Blood Blood Culture - Preliminary Resulted Objective HEENT: Atraumatic and normocephalic. Anicteric. Conjunctivae pallor is evident. + ET tube in place. NECK: JVP cannot be assessed in view of intubation. CARDIOVASCULAR: Normal S1, S2, currently irregular with no murmurs, gallops, or rubs. LUNGS: Diminished breath sounds in the right base, increased dullness on percussion. ABDOMEN: Soft, nontender, and nondistended. No hepatosplenomegaly. Positive bowel sounds. EXTREMITIES: Right BKA, otherwise left lower extremity with 1 to 2+ pitting edema. Eugene Cameron MD Oct 10, 2019 00:13
--- NOTE | 2019-10-10 01:39 | NUR ---
NURSE NOTES: PATIENT ASLEEP STATUS, NO DISTRESS NOTED AT THIS TIME, WILL CONTINUE PLAN OF CARE.
--- NOTE | 2019-10-10 03:18 | NUR ---
NURSE NOTES: MORNING CARE AND ORAL CARE WAS DONE.
--- NOTE | 2019-10-10 04:22 | NUR ---
NURSE NOTES: TEMP 100.6F WAS NOTED, GIVEN TYLENOL 650MG VIA OGT PRN ORDER, APPLIED COOLING MEASURE, WILL CONTINUE TO MONITOR.
[2019-10-10] MEDS: NovoLOG Insulin Flexpen SUBQ SCH ×4 (05:46→23:49)
--- NOTE | 2019-10-10 05:58 | NUR ---
NURSE NOTES: PT'S VISITED THAT SHE SAID,"LOOKING OTHER FACILITY, I SPOKE WITH SAL[employer] YESTERDAY, THEY WILL CALL ME TODAY."
--- NOTE | 2019-10-10 06:19 | NUR ---
NURSE NOTES: PENDING PTT RESULT.
--- NOTE | 2019-10-10 07:15 | NUR ---
NURSE HAND-OFF REPORT: Latest Vital Signs: Temperature 98.6 , Pulse 88 , B/P 104 /62 , Respiratory Rate 23 , O2 SAT 100 , Mechanical Ventilator, O2 Flow Rate . Vital Sign Comment: EKG Rhythm: a-flutter w/bbb Rhythm change?: N MD Notified?: Y-DR. ISRAEL NASCIMENTO Response: Latest Roman Fall Score: 70 Fall Risk: High Risk Safety Measures: Call light Within Reach, Bed Alarm Zone 1, Side Rails Side Rails x3, Bed position Low and Locked. Fall Precautions: Y Yellow Socks Door Sign Patient Fall Education Report given to SHANI FLORES.
--- NOTE | 2019-10-10 07:16 | NUR ---
NURSE NOTES: Received patient in bed. Patient open eyes upon shaking. Orally intubated, Vent dependent, Vent settings of AC 16, Tidal Volume of 500, FiO2 45%, PEEP of 5. OGT inplace, with tube feeding of Nepro running at 45ml/hour. Bilateral soft wrist restraints noted. Right chest Permacath and Left arm AV shunt for dialysis noted. Patient has order for dialysis today, will follow up with [facility] for ETA. Right Femoral TLC central line noted with heparin drip running at 20units/hour. Awaiting for PTT results. Right BKA noted, stamp wound dressing remains clean and intact.
--- NOTE | 2019-10-10 07:34 | NUR ---
RD ASSESSMENT & RECOMMENDATIONS SEE CARE ACTIVITY FOR COMPLETE ASSESSMENT DAILY ESTIMATED NEEDS: Needs based on Critical care, wound, ESRD, HD/ 66kg abw 25-30 kcals/kg 1459-3249 total kcals 1.25-2g g protein/kg 82-132 g total protein Fluids per MD NUTRITION DIAGNOSIS: (1) Increased kcal/pro needs R/T wound healing and renal dysfunction as evidenced by admitted w/ multiple wounds, including full thickness wounds @ L Hallux, distal /lateral L foot, plantar aspect of L foot at 3rd and 4th metatarsal heads, and DTPI @ L heel, pt w/ ESRD dx, on HD. (2) Swallowing difficulty R/T respiratory status as evidenced by s/p code blue x 2 (10/02), pt orally intubated, pressor support held at this time, on OGT feeds. CURRENT TF:Nepro @ 45ml/hr x 22 hrs PO DIET RECOMMENDATIONS: BASS FISHER eval post extubation -> Renal, CCHO med ENTERAL NUTRITION RECOMMENDATIONS: Nepro @ 45ml/hr x 22 hrs + Prosource 1pkt QD to provide 990ml, 1782kcal, 80g +11g prot, 720ml free water * W/ continued HD stability, maintain current TF * Add Prosource 1pkt daily to better meet protein needs * Hold 1 hr before and after Synthroid med * HOB over 30 degrees/ water flush per MD ADDITIONAL RECOMMENDATIONS: * Monitor hemodynamic stability: NE held at this time * Wound healing: add Nephrovite x 1, ZnSO4 220mg QD x 10 days Vit C dosing per nephbessy NASCIMENTO, Sergio BID * Monitor lytes- check phos and mag * Daily calibrated bedscale wt * Monitor BGs closely for hypoglycemia- no recent hypoglycemic episodes .
[2019-10-10] MEDS ORDERED: Heparin 5000 units/ml inj IV SCH ×2 (08:00→23:00)
[2019-10-10] MEDS ORDERED: Heparin 25,000u/D5W 500ml 500 ML IV SCH ×3 (08:00→23:00)
--- NOTE | 2019-10-10 08:00 | NUR ---
NURSE NOTES: Turned and repositioned patient. Left heel floating with pillow. Right below knee stump covered with ABD Pad, and wrapped with Kerlix noted to be dry and intact. Penis is oozing small amount of fluid.
--- NOTE | 2019-10-10 08:03 | NUR ---
NURSE NOTES: Latest PTT of 48, Pharmacist made aware. Order noted to increase heparin drip to 24 Units from 20 Units. Next PTT draw at 1400.
--- NOTE | 2019-10-10 08:03 | NUR ---
10/09 Per SHANI Finney, pt is still unstable. Because the CT order was requested on 10/02 and the pt has been unstable the entire time, Radiology is cancelling the order and asking the MD to reorder the exam when the pt is actually stable enough to come down. SHANI Finney stated she will inform the MD of the change. Any questions, please call Dashawn or Tamir at [phone]. [facility] 7:54
[2019-10-10 08:14] LABS: BASOPHILS % (AUTO) 1.4 % (0.0-2.0); EOSINOPHILS % (AUTO) 0.4 % (0.0-3.0); HEMATOCRIT 32.9 % (42.0-52.0); HEMOGLOBIN 10.2 G/DL (14.2-18.0); LYMPHOCYTES % (AUTO) 6.2 % (20.0-45.0); MEAN CORPUSCULAR VOLUME 97 FL (80-99); MONOCYTES % (AUTO) 10.5 % (1.0-10.0); NEUTROPHILS % (AUTO) 81.6 % (45.0-75.0); PLATELET COUNT 206 K/UL (150-450); RED BLOOD COUNT 3.39 M/UL (4.70-6.10); RED CELL DISTRIBUTION WIDTH 16.6 % (11.6-14.8); WHITE BLOOD COUNT 14.5 K/UL (4.8-10.8)
--- NOTE | 2019-10-10 08:15 | NUR ---
NURSE NOTES: Patient unstable to leave the unit for CTA scan, charge nurse made aware. Will inform Dr. Cameron who ordered the CTA.
[2019-10-10 08:24] LABS: ANION GAP 10 mmol/L (5-15); BLOOD UREA NITROGEN 40 mg/dL (7-18); CARBON DIOXIDE 27 MMOL/L (21-32); CHLORIDE 91 MMOL/L (98-107); CREATININE 7.2 MG/DL (0.55-1.30); POTASSIUM 4.2 MMOL/L (3.5-5.1); SODIUM 128 MMOL/L (136-145)
[2019-10-10 08:28] LABS: ALANINE AMINOTRANSFERASE 10 U/L (12-78); ALBUMIN 1.9 G/DL (3.4-5.0); ALBUMIN/GLOBULIN RATIO 0.4 (1.0-2.7); ALKALINE PHOSPHATASE 262 U/L (46-116); ASPARTATE AMINO TRANSFERASE 15 U/L (15-37); BILIRUBIN,TOTAL 0.4 MG/DL (0.2-1.0)
[2019-10-10] MEDS: Aspirin Baby 81mg ORAL SCH (09:00)
[2019-10-10] MEDS: Renvela 2400 mg pkt ORAL SCH ×3 (09:00→17:43)
[2019-10-10] MEDS: Qvar 40mcg Inhaler 6.8 gm INH SCH ×2 (10:00→22:00)
--- NOTE | 2019-10-10 10:15 | NUR ---
NURSE NOTES: Dr. Donnie Chaparro at bedside. Informed him that patient have episode of fever 100.6 this morning at 0400.
--- NOTE | 2019-10-10 10:29 | Pulmonology Progress Note ---
Subjective ROS Limited/Unobtainable: Yes Interval Events: BP better Constitutional: Reports: no symptoms HEENT: Repors: no symptoms Respiratory: Reports: no symptoms Cardiovascular: Reports: no symptoms Gastrointestinal/Abdominal: Reports: no symptoms Allergies: Coded Allergies: Dust (Verified Allergy, Unknown, 06/06/19) Objective Last 24 Hour Vital Signs Date Time Temp Pulse Resp B/P (MAP) Pulse Ox O2 Delivery O2 Flow Rate FiO2 10/10/19 10:00 88 19 123/56 (78) 100 10/10/19 09:30 88 24 121/59 (79) 100 10/10/19 09:00 88 25 125/63 (83) 100 10/10/19 08:30 88 21 106/75 (85) 100 10/10/19 08:00 Mechanical Ventilator 10/10/19 08:00 45 10/10/19 08:00 99.5 88 18 118/53 (74) 100 10/10/19 07:41 88 10/10/19 07:30 89 25 125/84 (98) 100 10/10/19 07:00 88 22 116/52 (73) 100 10/10/19 06:47 88 23 45 10/10/19 06:00 87 20 104/62 (76) 100 10/10/19 05:30 98.6 95 20 111/63 (79) 100 10/10/19 05:12 101 21 45 10/10/19 05:00 98 20 115/65 (82) 100 10/10/19 04:52 99.8 10/10/19 04:00 100.6 99 31 119/86 (97) 100 10/10/19 04:00 99 10/10/19 04:00 50 10/10/19 04:00 Mechanical Ventilator 10/10/19 03:00 102 22 50 10/10/19 03:00 98 20 135/68 (90) 100 10/10/19 02:00 91 24 115/49 (71) 100 10/10/19 01:00 90 20 118/61 (80) 100 10/10/19 00:43 74 17 50 10/10/19 00:00 50 10/10/19 00:00 Mechanical Ventilator 10/10/19 00:00 75 10/10/19 00:00 99.3 75 23 117/53 (74) 100 10/09/19 23:00 83 26 126/65 (85) 99 10/09/19 22:52 65 19 50 10/09/19 22:00 82 20 125/56 (79) 100 10/09/19 21:30 86 20 112/67 (82) 100 10/09/19 21:09 67 21 50 10/09/19 21:00 72 16 98/45 (62) 100 10/09/19 20:00 50 10/09/19 20:00 98.6 67 20 110/55 (73) 100 10/09/19 20:00 Mechanical Ventilator 10/09/19 19:35 69 17 50 10/09/19 19:22 67 10/09/19 19:00 67 21 102/47 (65) 98 10/09/19 18:00 67 20 95/43 (60) 100 10/09/19 18:00 95/43 10/09/19 17:01 66 111/53 10/09/19 17:00 66 19 100/45 (63) 100 10/09/19 16:47 50 10/09/19 16:41 67 17 50 10/09/19 16:00 Mechanical Ventilator 10/09/19 16:00 66 10/09/19 16:00 98.8 66 21 104/59 (74) 100 10/09/19 16:00 60 10/09/19 15:00 66 18 98/54 (69) 100 10/09/19 15:00 66 26 40 10/09/19 14:00 65 20 101/58 (72) 100 10/09/19 13:50 91/57 10/09/19 13:35 60 10/09/19 13:28 65 19 40 10/09/19 13:00 66 16 100/50 (67) 100 10/09/19 13:00 88/49 10/09/19 12:30 80 114/58 10/09/19 12:00 40 10/09/19 12:00 Mechanical Ventilator 10/09/19 12:00 98.6 66 15 103/54 (70) 100 10/09/19 12:00 78 10/09/19 11:00 66 24 92/52 (65) 100 10/09/19 10:38 40 10/09/19 10:35 65 18 40 Intake and Output 10/09/19 10/10/19 19:00 07:00 Intake Total 890.7085 ml 1028.84 ml Balance 890.7085 ml 1028.84 ml Free Water 10 ml IV Total 340.7085 ml 378.84 ml Tube Feeding 540 ml 450 ml Other 200 ml # Voids 1 # Bowel Movements 1 2 General Appearance: no acute distress HEENT: normocephalic Respiratory: chest wall non-tender, lungs clear Cardiovascular: normal peripheral pulses, normal rate Abdomen: normal bowel sounds Microbiology Date/Time Source Procedure Growth Status 10/08/19 14:15 Blood Blood Culture - Preliminary Staphylococcus Sp Coag Neg Resulted 10/09/19 10:30 Sputum Gram Stain - Final Resulted 10/09/19 10:30 Sputum Sputum Culture Pending Resulted Laboratory Tests 10/09/19 12:23: POC Whole Blood Glucose [Pending] 10/09/19 17:50: Activated Partial Thromboplast Time 81H 10/10/19 05:04: Activated Partial Thromboplast Time 48H 10/10/19 07:40: White Blood Count 14.5H, Red Blood Count 3.39L, Hemoglobin 10.2L, Hematocrit 32.9L, Mean Corpuscular Volume 97, Mean Corpuscular Hemoglobin 30.2, Mean Corpuscular Hemoglobin Concent 31.1L, Red Cell Distribution Width 16.6H, Platelet Count 206, Mean Platelet Volume 6.1L, Neutrophils (%) (Auto) 81.6H, Lymphocytes (%) (Auto) 6.2L, Monocytes (%) (Auto) 10.5H, Eosinophils (%) (Auto) 0.4, Basophils (%) (Auto) 1.4, Sodium Level 128L, Potassium Level 4.2, Chloride Level 91L, Carbon Dioxide Level 27, Anion Gap 10, Blood Urea Nitrogen 40H, Creatinine 7.2H, Estimat Glomerular Filtration Rate 9.2, Glucose Level 150H, Calcium Level 8.0L, Total Bilirubin 0.4, Aspartate Amino Transf (AST/SGOT) 15, Alanine Aminotransferase (ALT/SGPT) 10L, Alkaline Phosphatase 262H, Total Protein 7.3, Albumin 1.9L, Globulin 5.4, Albumin/Globulin Ratio 0.4L Current Medications Medications (Trade) Dose Ordered Sig/Monica Route PRN Reason Start Time Stop Time Status Last Admin Dose Admin Acetaminophen (Tylenol) 650 mg Q4H PRN ORAL Mild Pain (Pain Scale 1-3) 10/03/19 14:00 11/01/19 13:59 10/05/19 09:51 Acetaminophen (Tylenol) 650 mg Q4H PRN ORAL Temp >100.5 10/03/19 14:00 11/01/19 13:59 10/10/19 04:22 Aspirin (ASA) 81 mg DAILY ORAL 10/04/19 09:00 11/17/19 08:59 10/09/19 09:24 Atorvastatin Calcium (Lipitor) 20 mg BEDTIME ORAL 10/03/19 21:00 12/31/19 20:59 10/09/19 20:56 Beclomethasone Dipropionate (Qvar 40 Inhaler) 1 puff BIDRT INH 10/03/19 22:00 11/02/19 21:59 Cefepime HCl 500 mg/Dextrose 55 ml @ 110 mls/hr Q24H IV 10/06/19 12:00 10/13/19 11:59 10/09/19 12:48 Chlorhexidine Gluconate (Dina-Hex 2%) 1 applic DAILY@2000 TOPIC 10/03/19 20:00 01/01/20 19:59 10/09/19 19:46 Collagenase (Santyl) 1 applic BEDTIME TOPIC 10/10/19 21:00 01/01/20 14:59 Dextrose (Dextrose 50%) 25 ml Q30M PRN IV Hypoglycemia 10/03/19 14:15 12/31/19 20:14 10/05/19 10:21 Dextrose (Dextrose 50%) 50 ml Q30M PRN IV Hypoglycemia 10/03/19 14:15 12/31/19 20:14 10/05/19 05:31 Diphenhydramine HCl (Benadryl) 25 mg Q6H PRN ORAL Itching/Pruritis 10/03/19 14:15 11/01/19 20:14 Diphenoxylate HCl/ Atropine (Lomotil) 2.5 mg Q4H PRN ORAL Diarrhea 10/03/19 14:00 11/01/19 13:59 Haloperidol Lactate 5 mg/ Dextrose 56 ml @ 224 mls/hr Q6H PRN IVPB Agitation 10/08/19 10:30 11/22/19 10:29 10/08/19 15:10 Heparin Sodium/ Dextrose 500 ml @ 38.973 mls/ hr ADJUST PER PROTOCOL IV 10/10/19 08:00 11/09/19 07:59 10/10/19 08:03 Insulin Aspart (NovoLOG) EVERY 6 HOURS SUBQ 10/10/19 12:00 12/31/19 20:59 Insulin Detemir (Levemir) 18 units BEDTIME SUBQ 10/07/19 21:00 01/05/20 20:59 10/09/19 20:57 Isosorbide Dinitrate (Isordil) 10 mg THREE TIMES A DAY ORAL 10/03/19 18:00 11/01/19 20:14 10/04/19 18:31 Levothyroxine Sodium (Synthroid) 75 mcg ACBREAKFAST ORAL 10/04/19 06:30 11/03/19 06:29 10/10/19 05:45 Lorazepam (Ativan 2mg/ml 1ml) 1 mg Q3H PRN IV For Anxiety 10/03/19 14:00 10/10/19 13:59 Nitroglycerin (Ntg) 0.4 mg Q5M PRN SL Prn Chest Pain 10/03/19 13:50 11/01/19 20:14 Norepinephrine Bitartrate 8 mg/ Dextrose 250 ml @ 0 mls/hr Q24H IV 10/03/19 14:00 11/02/19 13:59 10/06/19 23:30 Ondansetron HCl (Zofran) 4 mg Q6H PRN IVP Nausea & Vomiting 10/03/19 14:00 11/01/19 13:59 Polyethylene Glycol (Miralax) 17 gm DAILYPRN PRN ORAL Constipation 10/03/19 14:00 11/01/19 13:59 Sevelamer Carbonate (Renvela) 2,400 mg THREE TIMES A DAY ORAL 10/06/19 18:00 01/04/20 17:59 10/09/19 17:01 Vancomycin HCl (Vanco pharmacy to dose) 1 ea DAILY PRN MISC Per rx protocol 10/05/19 11:15 11/04/19 11:14 Assessment/Plan Assessment/Plan IMPRESSION: 1. ESRD, on dialysis. 2. Pulmonary edema. 3. Cardiac arrhythmias with A-flutter/AFib. 4. Status post cardiopulmonary arrest. 5. Respiratory failure 6. Previous right BKA. DISCUSSION: Continue current Ventilator settings, wean as tolerated weaning in progress Off sedation DC propofol Not on pressors Continue antibiotics Check venous duplex Consulted wound care Consulted ID [id number] HD per Nephrology Cardiology following. may transfer to outside (contracted ) facility; stable today Ming Wong MD Oct 10, 2019 10:29
--- NOTE | 2019-10-10 10:30 | NUR ---
NURSE NOTES: Dr. Wong at bedside. Patient on continuous heparin drip. Remains orally intubated, Vent dependent, FiO2 of 45%. No new order at this time.
--- NOTE | 2019-10-10 10:52 | NUR ---
NURSE NOTES: Dr. Talbot in the unit. Informed him regarding today's lab. And Dialysis Nurse/Young said that patient will be the last case for dialysis session today. Dr. Talbot said it's ok. Blood pressure remains stable. No medications given for blood pressure today. No new order at this time.
[2019-10-10] MEDS: Cefepime HCl 500 MG in D5W 55 ML IV SCH (11:10)
--- NOTE | 2019-10-10 11:27 | Nephrology Progress Note ---
Assessment/Plan Assessment/Plan: A/P 1) Resp FL - intubated on vent per pulm mgmt 2) ESRD- HD ordered for today 3) Sepsis- multifact, ID and gen surgery 4) Hypotension- BP meds being held Subjective Date patient seen: Oct 10, 2019 Time patient seen: 11:26 ROS Limited/Unobtainable: Yes Allergies: Coded Allergies: Dust (Verified Allergy, Unknown, 06/06/19) Subjective Patient remains intubated Objective Last 24 Hour Vital Signs Date Time Temp Pulse Resp B/P (MAP) Pulse Ox O2 Delivery O2 Flow Rate FiO2 10/10/19 11:00 88 27 120/63 (82) 100 10/10/19 10:54 88 18 45 10/10/19 10:30 89 23 116/67 (83) 100 10/10/19 10:00 88 19 123/56 (78) 100 10/10/19 09:30 88 24 121/59 (79) 100 10/10/19 09:00 88 25 125/63 (83) 100 10/10/19 08:30 88 21 106/75 (85) 100 10/10/19 08:00 Mechanical Ventilator 10/10/19 08:00 45 10/10/19 08:00 99.5 88 18 118/53 (74) 100 10/10/19 07:41 88 10/10/19 07:30 89 25 125/84 (98) 100 10/10/19 07:00 88 22 116/52 (73) 100 10/10/19 06:47 88 23 45 10/10/19 06:00 87 20 104/62 (76) 100 10/10/19 05:30 98.6 95 20 111/63 (79) 100 10/10/19 05:12 101 21 45 10/10/19 05:00 98 20 115/65 (82) 100 10/10/19 04:52 99.8 10/10/19 04:00 100.6 99 31 119/86 (97) 100 10/10/19 04:00 99 10/10/19 04:00 50 10/10/19 04:00 Mechanical Ventilator 10/10/19 03:00 102 22 50 10/10/19 03:00 98 20 135/68 (90) 100 10/10/19 02:00 91 24 115/49 (71) 100 8/21/20 01:00 90 20 118/61 (80) 100 821/20 00:43 74 17 50 820 00:00 50 820 00:00 Mechanical Ventilator 10/10/19 00:00 75 8/20 00:00 99.3 75 23 117/53 (74) 100 8/20/20 23:00 83 26 126/65 (85) 99 82020 22:52 65 19 50 820/20 22:00 82 20 125/56 (79) 100 82020 21:30 86 20 112/67 (82) 100 82020 21:09 67 21 50 820/20 21:00 72 16 98/45 (62) 100 820 20:00 50 820/20 20:00 98.6 67 20 110/55 (73) 100 820 20:00 Mechanical Ventilator 10/09/19 19:35 69 17 50 820 19:22 67 820 19:00 67 21 102/47 (65) 98 82020 18:00 67 20 95/43 (60) 100 82020 18:00 95/43 820 17:01 66 111/53 20 17:00 66 19 100/45 (63) 100 20 16:47 50 820 16:41 67 17 50 82020 16:00 Mechanical Ventilator 10/09/19 16:00 66 10/09/19 16:00 98.8 66 21 104/59 (74) 100 82020 16:00 60 820/20 15:00 66 18 98/54 (69) 100 82020 15:00 66 26 40 820/20 14:00 65 20 101/58 (72) 100 82020 13:50 91/57 82020 13:35 60 82020 13:28 65 19 40 820/20 13:00 66 16 100/50 (67) 100 82020 13:00 88/49 82020 12:30 80 114/58 820 12:00 40 8 12:00 Mechanical Ventilator 10/09/19 12:00 98.6 66 15 103/54 (70) 100 10/09/19 12:00 78 Intake and Output 10/09/19 10/10/19 19:00 07:00 Intake Total 890.7085 ml 1028.84 ml Balance 890.7085 ml 1028.84 ml Free Water 10 ml IV Total 340.7085 ml 378.84 ml Tube Feeding 540 ml 450 ml Other 200 ml # Voids 1 # Bowel Movements 1 2 Laboratory Tests 10/09/19 12:23: POC Whole Blood Glucose [Pending] 10/09/19 17:50: Activated Partial Thromboplast Time 81H 10/10/19 05:04: Activated Partial Thromboplast Time 48H 10/10/19 07:40: White Blood Count 14.5H, Red Blood Count 3.39L, Hemoglobin 10.2L, Hematocrit 32.9L, Mean Corpuscular Volume 97, Mean Corpuscular Hemoglobin 30.2, Mean Corpuscular Hemoglobin Concent 31.1L, Red Cell Distribution Width 16.6H, Platelet Count 206, Mean Platelet Volume 6.1L, Neutrophils (%) (Auto) 81.6H, Lymphocytes (%) (Auto) 6.2L, Monocytes (%) (Auto) 10.5H, Eosinophils (%) (Auto) 0.4, Basophils (%) (Auto) 1.4, Sodium Level 128L, Potassium Level 4.2, Chloride Level 91L, Carbon Dioxide Level 27, Anion Gap 10, Blood Urea Nitrogen 40H, Creatinine 7.2H, Estimat Glomerular Filtration Rate 9.2, Glucose Level 150H, Calcium Level 8.0L, Total Bilirubin 0.4, Aspartate Amino Transf (AST/SGOT) 15, Alanine Aminotransferase (ALT/SGPT) 10L, Alkaline Phosphatase 262H, Total Protein 7.3, Albumin 1.9L, Globulin 5.4, Albumin/Globulin Ratio 0.4L Height (Feet): 5 Height (Inches): 6.00 Weight (Pounds): 179 General Appearance: other - intubated EENT: normal ENT inspection Neck: normal alignment Cardiovascular: normal rate, regular rhythm Respiratory/Chest: rhonchi - bilaterally Abdomen: non tender, soft Edema: no edema noted Arm (L), no edema noted Arm (R), no edema noted Leg (L), no edema noted Leg (R), no edema noted Pedal (L), no edema noted Pedal (R), no edema noted Generalized Sandeep Talbot MD Oct 10, 2019 11:27
--- NOTE | 2019-10-10 12:15 | NUR ---
NURSE NOTES: Patient's /Isela at bedside. Updated plan of care. She stated that she doesn't want the patient to be transferred to [facility]. She said that she will talk to case management director.
--- NOTE | 2019-10-10 13:00 | NUR ---
NURSE NOTES: No signs and symptoms of hypoglycemia. Latest blood sugar of 163, novolog per sliding scale given.
--- NOTE | 2019-10-10 13:04 | Surgery Progress Note ---
Surgery Progress Note Subjective Additional Comments ill appearing on support cultures noted no n/v Objective Last 24 Hour Vital Signs Date Time Temp Pulse Resp B/P (MAP) Pulse Ox O2 Delivery O2 Flow Rate FiO2 10/10/19 12:00 45 10/10/19 12:00 98.3 87 18 122/60 (80) 100 10/10/19 12:00 Mechanical Ventilator 10/10/19 11:46 86 10/10/19 11:30 90 22 118/73 (88) 100 10/10/19 11:00 88 27 120/63 (82) 100 10/10/19 10:54 88 18 45 10/10/19 10:30 89 23 116/67 (83) 100 10/10/19 10:00 88 19 123/56 (78) 100 10/10/19 09:30 88 24 121/59 (79) 100 10/10/19 09:00 88 25 125/63 (83) 100 10/10/19 08:30 88 21 106/75 (85) 100 10/10/19 08:00 Mechanical Ventilator 10/10/19 08:00 45 10/10/19 08:00 99.5 88 18 118/53 (74) 100 10/10/19 07:41 88 10/10/19 07:30 89 25 125/84 (98) 100 10/10/19 07:00 88 22 116/52 (73) 100 10/10/19 06:47 88 23 45 10/10/19 06:00 87 20 104/62 (76) 100 10/10/19 05:30 98.6 95 20 111/63 (79) 100 10/10/19 05:12 101 21 45 10/10/19 05:00 98 20 115/65 (82) 100 10/10/19 04:52 99.8 10/10/19 04:00 100.6 99 31 119/86 (97) 100 10/10/19 04:00 99 10/10/19 04:00 50 10/10/19 04:00 Mechanical Ventilator 10/10/19 03:00 102 22 50 10/10/19 03:00 98 20 135/68 (90) 100 10/10/19 02:00 91 24 115/49 (71) 100 10/10/19 01:00 90 20 118/61 (80) 100 10/10/19 00:43 74 17 50 10/10/19 00:00 50 10/10/19 00:00 Mechanical Ventilator 10/10/19 00:00 75 10/10/19 00:00 99.3 75 23 117/53 (74) 100 10/09/19 23:00 83 26 126/65 (85) 99 10/09/19 22:52 65 19 50 10/09/19 22:00 82 20 125/56 (79) 100 10/09/19 21:30 86 20 112/67 (82) 100 10/09/19 21:09 67 21 50 10/09/19 21:00 72 16 98/45 (62) 100 10/09/19 20:00 50 10/09/19 20:00 98.6 67 20 110/55 (73) 100 10/09/19 20:00 Mechanical Ventilator 10/09/19 19:35 69 17 50 10/09/19 19:22 67 10/09/19 19:00 67 21 102/47 (65) 98 10/09/19 18:00 67 20 95/43 (60) 100 10/09/19 18:00 95/43 10/09/19 17:01 66 111/53 10/09/19 17:00 66 19 100/45 (63) 100 10/09/19 16:47 50 10/09/19 16:41 67 17 50 10/09/19 16:00 Mechanical Ventilator 10/09/19 16:00 66 10/09/19 16:00 98.8 66 21 104/59 (74) 100 10/09/19 16:00 60 10/09/19 15:00 66 18 98/54 (69) 100 10/09/19 15:00 66 26 40 10/09/19 14:00 65 20 101/58 (72) 100 10/09/19 13:50 91/57 10/09/19 13:35 60 10/09/19 13:28 65 19 40 I&O Intake and Output 10/09/19 10/10/19 19:00 07:00 Intake Total 890.7085 ml 1028.84 ml Balance 890.7085 ml 1028.84 ml Free Water 10 ml IV Total 340.7085 ml 378.84 ml Tube Feeding 540 ml 450 ml Other 200 ml # Voids 1 # Bowel Movements 1 2 Dressing: saturated Cardiovascular: RSR Respiratory: decreased breath sounds Abdomen: soft, non-tender, present bowel sounds Extremities: edema, no tenderness, no cyanosis, pulses, other Laboratory Tests Test 10/09/19 17:50 10/10/19 05:04 10/10/19 07:40 Activated Partial Thromboplast Time 81 SEC (23-33) H 48 SEC (23-33) H White Blood Count 14.5 K/UL (4.8-10.8) H Red Blood Count 3.39 M/UL (4.70-6.10) L Hemoglobin 10.2 G/DL (14.2-18.0) L Hematocrit 32.9 % (42.0-52.0) L Mean Corpuscular Volume 97 FL (80-99) Mean Corpuscular Hemoglobin 30.2 PG (27.0-31.0) Mean Corpuscular Hemoglobin Concent 31.1 G/DL (32.0-36.0) L Red Cell Distribution Width 16.6 % (11.6-14.8) H Platelet Count 206 K/UL (150-450) Mean Platelet Volume 6.1 FL (6.5-10.1) L Neutrophils (%) (Auto) 81.6 % (45.0-75.0) H Lymphocytes (%) (Auto) 6.2 % (20.0-45.0) L Monocytes (%) (Auto) 10.5 % (1.0-10.0) H Eosinophils (%) (Auto) 0.4 % (0.0-3.0) Basophils (%) (Auto) 1.4 % (0.0-2.0) Sodium Level 128 MMOL/L (136-145) L Potassium Level 4.2 MMOL/L (3.5-5.1) Chloride Level 91 MMOL/L (98-107) L Carbon Dioxide Level 27 MMOL/L (21-32) Anion Gap 10 mmol/L (5-15) Blood Urea Nitrogen 40 mg/dL (7-18) H Creatinine 7.2 MG/DL (0.55-1.30) H Estimat Glomerular Filtration Rate 9.2 mL/min (>60) Glucose Level 150 MG/DL (74-106) H Calcium Level 8.0 MG/DL (8.5-10.1) L Total Bilirubin 0.4 MG/DL (0.2-1.0) Aspartate Amino Transf (AST/SGOT) 15 U/L (15-37) Alanine Aminotransferase (ALT/SGPT) 10 U/L (12-78) L Alkaline Phosphatase 262 U/L (46-116) H Total Protein 7.3 G/DL (6.4-8.2) Albumin 1.9 G/DL (3.4-5.0) L Globulin 5.4 g/dL Albumin/Globulin Ratio 0.4 (1.0-2.7) L Plan Problems: (1) Cardiopulmonary arrest Assessment & Plan: in ICU on support weaning labs noted cont current care Assessment of pt's skin limited as pt is stable at present to be turned in bed. Generalized edemae noted. Shaft of penis is swollen,erythematous and oozing small amt purulent exudate from meatus. At head of Penis is an irregular shaped wound with 100% slough at base of wound(L)3cm x (W)2.5cm. Edges are erythematous with surrounding erythema shaft. Laterally, but in close proximity is small pustule(L)0.5cm x (W)0.4cm.Along foreskin is erythematous and swollen. 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 No surrounding erythema or evidence of further skin breakdown noted. L Lower ext noted to have very snugged sharee wrap which was removed. Xerosis skin with Haemosiderin deposits noted to LLE. LLE washed and moisturized to better assess wounds. Two areas of dry pink epithelial noted to dorsal and lateral L tibia. Linear Dry eschar noted to posterior L Knee (L)1.2cm x (W)9.5cm. No surrounding erythema or induration noted. Full thickness wound L Hallux(L)3cm x (W)2.5cm.Base of wound is 100% yellow slough. Margins are erythematous. Periwound is dark and indurated. Wound is malodorous. No exudate noted. L 5th TMA noted. At distal /lateral L foot is a Full Thickness wound(L)2cm x (W) 2.5cm. Base of wound is 80% mixed slough and eschar,20% carol. Edges are macerated. Small amt seropurulent exudate noted. Wound is malodorous. At Plantar aspect of L foot at 3rd and 4th metatarsal heads is a full thickness wound that is malodorous. (L)1.5cm x (W)1cm. Base of wound is mixed soft necrosis and slough. Small amt seropurulent exudate noted. Periwound skin is callused but no erythema noted. DTPI noted to L heel (L)3.1cm x (W)2cm. Base of injury is purpuric and fluctuant. Surrounding areas of L heel is boggy without erythema. Hyperpigmentation from previous wound noted to medial L malleolus. Will plan to assess Back and sacral area when pt is stable to be turned. Tx.Plan:Cleanse wound Penis with Saline. Apply Nickel thick layer of Santyl with saline moistened 2x2 gauze Daily and prn. Apply Bactroban to wounds on Penis TID as directed by . Cleanse Wounds L Foot with Saline. Apply Nickel Thick layer Santyl. Apply Saline moistened gauze to each wound. Cover with ABD pad. Wrap with Kerlix Daily and prn. Apply Cavilon Skin Barrier to posterior L Knee Daily and prn. Moisturize dry skin LLE daily with each drsg changes. Apply Cavilon Skin Barrier to L Heel daily. Apply Cavilon Skin Barrier to base of R BKA Stump. Cover with ABD Pad. Wrap with Kerlix every 3 days and prn. Apply Moisture Barrier Paste to sacrum. Cover with Optifoam drsg. Change every 3 days and prn. Reposition at least every 2hours or as tolerated. Off-load L Heel with Pillow. Off-load L BKA with Pillow. APM/NATHALY Mattress overlay. (2) Bilateral pleural effusion Assessment & Plan: Interim endotracheal intubation, endotracheal tube tip in good position projecting approximately 7 cm above the ravinder. Interim placement of an orogastric tube, tip of which projects beyond the edge of the image, position therefore indeterminate. Right jugular dialysis catheter is again demonstrated. Large right pleural effusion, mild interstitial edema bilaterally persist. Impression: Satisfactory endotracheal intubation. Patient's nurse notified at the time of interpretation Status post nasogastric intubation, tip below the diaphragm but otherwise position indeterminate. (3) CHF (congestive heart failure) (4) Hypoxia (5) ARF (acute renal failure) (6) Injury of left upper extremity (7) bleeding AV shunt (8) Diabetes (9) Hypertension, benign (10) Anemia in chronic kidney disease (11) Dialysis AV fistula malfunction (12) Abnormal laboratory test result (13) Respiratory distress (14) Hyperglycemia (15) Asthma (16) CHF exacerbation (17) Atrial flutter (18) End-stage renal disease (19) SVT (supraventricular tachycardia) Bolivar Barrios Oct 10, 2019 13:04
--- NOTE | 2019-10-10 13:30 | NUR ---
DISCHARGE/TRANSFER: NOTE CALL RECEIVED FROM ERICA COTTRELL REGARDING TRANSFER TO [facility], VS, 10/09 PROGRESS NOTES, AND 10/01 COVID RESULTS FAXED TO [phone] T: [phone] DIRECT # TO Addendum: 10/10/19 at 1753 by Jana Tyson [facility] IS PENDING FINANCIAL ACCEPTANCE [facility] >> AT [facility] >> BEING REVIEWED FOR ACCEPTANCE. ERICA COTTRELL IS LOCATING ACCEPTING FACILITY.
[2019-10-10] MEDS ORDERED: NS 275ml ONE ×2 (14:17→14:21)
[2019-10-10] MEDS ORDERED: Tubing IV Secondary IV ONE ×2 (14:17→14:21)
--- NOTE | 2019-10-10 14:30 | Consultation ---
DATE OF CONSULTATION: 10/10/2019 INFECTIOUS DISEASE CONSULTATION CONSULTING PHYSICIAN: Donnie Chaparro MD. PRIMARY ATTENDING PHYSICIAN: Ming Wong MD. This consult is for coverage of Dr. Back. REASON FOR CONSULT: Sepsis, osteomyelitis of left foot, and pneumonia. HISTORY OF PRESENT ILLNESS: This is a 69-year-old male admitted on 10/02/2019 because of missed hemodialysis and shortness of breath. In yarn mercerizer operator of 10/03/2019, he was coded and intubated. After that, the patient was transferred to ICU. The patient has diabetes and end-stage renal disease. He had fever and leukocytosis since early in the admission. Fever started on 10/04/2019. The patient is on cefepime since 10/06/2019. PAST MEDICAL HISTORY: End-stage renal disease, on hemodialysis, right leg below-knee amputation, peripheral vascular disease status bypass, history of coronary artery bypass graft, COPD, diabetes mellitus, pressure ulcer on left foot, right PermCath, hypothyroidism, and anemia. ALLERGIES: No known drug allergies. MEDICATIONS: Santyl, insulin aspart, Haldol, insulin detemir, cefepime, vancomycin, levothyroxine, atorvastatin, isosorbide, norepinephrine, Tylenol, and lorazepam. SOCIAL HISTORY: . No other history obtainable by the patient. PHYSICAL EXAMINATION: VITAL SIGNS: Temperature 99.5, T-max 100.6, pulse 88, blood pressure 123/56. HEAD AND NECK: Orally intubated. Has orogastric tube. HEART: Normal rate, has a PermCath. LUNGS: On ventilator, has rhonchi. ABDOMEN: Soft. EXTREMITIES: Has edema of arms. Right below-knee amputation. SKIN: He has pressure ulcer mostly in the left foot. LABORATORY AND DIAGNOSTIC DATA: WBC 14.5, hemoglobin 10.9, hematocrit 35.2, platelets 188,000. Sodium 128, potassium 4.2, chloride 91, bicarb 27, BUN 14, creatinine 7.2. Glucose 150. Blood culture x1 grew coagulase negative Staph. Wound culture from the left leg grew Coagulase negative staph & Morganella morganii. COVID test was negative. MRSA screening was negative. Foot x-ray showed erosive changes of medial first metatarsal head could indicate osteomyelitis versus arthropathy. Chest x-ray, retrocardiac and left base atelectasis with or without consolidation. IMPRESSION: Sepsis with fever and leukocytosis. He seems to have osteomyelitis of the left first metatarsal. He may have pneumonia, had cardiopulmonary arrest. He has end-stage renal disease, on hemodialysis. He has peripheral vascular disease, COPD, diabetes mellitus, anemia, and hypothyroidism. RECOMMENDATION: Continue with cefepime and vancomycin. We will follow up the sputum culture obtained yesterday. The patient is supposed to have a CT angiogram to rule out pulmonary emboli. At the end of my consult, I thank Dr. Wong for involving me in the care of this patient. Donnie Chaparro M.D. DR: FLORY JOB#: [id number] CC: EWA
--- NOTE | 2019-10-10 15:35 | NUR ---
NURSE NOTES: Held heparin drip per protocol. Will resume new heparin drip order of 21 units/kg/hour in 30 mins. Latest PTT 107.
--- NOTE | 2019-10-10 16:00 | NUR ---
NURSE NOTES: Wound care nurse at bedside. Assessed bilateral buttocks shearing.
--- NOTE | 2019-10-10 16:20 | NUR ---
NURSE NOTES: Started new heparin drip order of 21 units/kg/hour. Next PTT check tonight at 2220.
--- NOTE | 2019-10-10 16:30 | NUR ---
NURSE NOTES:WOUND CARE FOLLOW-UP:Pt was previously seen for evaluation of wounds but was not stable at that time and limited assessment of skin was done. Pt noted to have an Unstable Pressure injury sacrococcygeal (L)0.7cm x (W)0.4cm. Base of wound is 100% slough. Surrounding non-blanchable erythema without fluctuance.Scattered partial thickness shearing noted to R ischium and lower R gluteal cleft. Partial thickness shearing noted to L buttocks(L)1cm x (W)2.5cm. Tx.Plan: Appy Salvadoryl to Sacrococcygeal wound. Apply Moistuer barrier paste to surrounding areas of shearing. Cover with Optifoam drsg Daily and prn.
--- NOTE | 2019-10-10 16:43 | NUR ---
NURSE NOTES: Informed Dr. Talbot via telephone that VIP dialysis nurse/Jordan just got here in the unit. And about to start dialysis session with patient. Latest blood pressure of 119/53. Will continue to monitor.
--- NOTE | 2019-10-10 17:53 | NUR ---
CASE MANAGEMENT: REVIEW 10/10/2019 SI;RESP FAILURE VS: T 98.3 HR 94 RR 23 B/P 119/95 SATS 1005 ON MECH VENT FIO2 45 LABS: WBC 14.5 NA 128 CL 91 BUN 40 CR 7.2 GLU 150 ALT 10 ALP 262 IS;INSULIN ASPART Q6H LIPITOR PO QHS LEVEMIR SUBQ QHS ASA PO QD ICU DCP: [facility]
--- NOTE | 2019-10-10 17:56 | NUR ---
INSURANCE UPDATED CLINICALS AND REVIEW HAVE BEEN FAXED TO: [facility] P:[phone] F:[phone] AUTH#[id number]
--- NOTE | 2019-10-10 18:00 | NUR ---
NURSE NOTES: No signs and symptoms of hypoglycemia. Hemodialysis session ongoing. VIP HD nurse/Young at bedside. Contact isolation observed.
--- NOTE | 2019-10-10 19:10 | NUR ---
NURSE NOTES: Pt report received from sundar MCLEOD. pt is alert and oriented times 2, able to open eyes with light tactile stimuli. pt is on monitoring specialist showing A flutter, no other acute cardiac abnormalities. pt is ET tube, sating 99% O2, no other acute resp distress noted. pt bed is low, locked, armed, call light within reach, bed rails up times 3. will follow plan of care.
--- NOTE | 2019-10-10 19:15 | NUR ---
NURSE HAND-OFF REPORT: Latest Vital Signs: Temperature 98.3 , Pulse 93 , B/P 141 /82 , Respiratory Rate 20 , O2 SAT 100 , Mechanical Ventilator, O2 Flow Rate . Vital Sign Comment: Heparin drip running at 21 units/kg/hour. EKG Rhythm: Atrial Flutter Rhythm change?: N MD Notified?: Response: Latest Roman Fall Score: 70 Fall Risk: High Risk Safety Measures: Call light Within Reach, Bed Alarm Zone 1, Side Rails Side Rails x3, Bed position Low and Locked. Fall Precautions: Yellow Socks Door Sign Patient Fall Education Contact isolation observed. Next PTT check at 2220. [facility] HD Nurse/Jordan at bedside. Report given to Michael Kumar RN
[2019-10-10] MEDS: Dyna-Hex 2% Top Sol 2oz TOPIC SCH (20:57)
[2019-10-10] MEDS: Atorvastatin 20mg tab ORAL SCH (20:57)
--- NOTE | 2019-10-10 21:00 | NUR ---
NURSE NOTES: Deondre from [facility] [employer] [facility] called to state the pt has a bed ready to accept pt at [facility].
[2019-10-10] MEDS: Levemir Flexpen SUBQ SCH (21:02)
--- NOTE | 2019-10-10 21:40 | NUR ---
NURSE NOTES: Spoke to Isela Alonso Pts family member. she stated she will speak to her insurance ([employer] insurance) to clarify where the pt will be transferred to.
--- NOTE | 2019-10-10 22:00 | NUR ---
NURSE NOTES: Spoke with vikash, pts family member. she stated that she wants to go ahead with the transfer of the pt to [facility].
--- NOTE | 2019-10-10 22:30 | NUR ---
NURSE NOTES: phlebotomy came for lab/ blood draw.
--- NOTE | 2019-10-10 22:30 | NUR ---
NURSE NOTES: Spoke with Deondre from [employer]. he stated he will arrange [facility] transfer of pt and call back with the ETA of the transfer team, with an RT.
--- NOTE | 2019-10-10 23:09 | NUR ---
NURSE NOTES: called and left a message on doctor Rakesh urgent line to alert doctor that the pt is in the process of being transferred out to another hospital.
--- NOTE | 2019-10-10 23:50 | NUR ---
NURSE NOTES: called Deondre England from pts Insurance to have an ETA of when the transfer team will arrive. awaiting call back.
--- NOTE | 2019-10-10 23:52 | NUR ---
NURSE NOTES: called doctor Michael urgent line to let him know pt is in the process of being transferred out to another hospital. awaiting call back
[2019-10-11] VITALS: BP 142/69
--- NOTE | 2019-10-11 00:24 | NUR ---
NURSE NOTES: Valarie from [facility] called and stated she will be arranging a transport team for the pt.
[2019-10-11 01:00] VITALS: BP 142/76
--- NOTE | 2019-10-11 01:00 | NUR ---
NURSE NOTES: pt was repositioned. pt was cleaned. wound care as doctor ordered.
[2019-10-11 02:00] VITALS: BP 131/64
--- NOTE | 2019-10-11 02:05 | NUR ---
NURSE NOTES: gave report to Parish from [facility]. awaiting [facility] transfer team arrival.
[2019-10-11 03:00] VITALS: BP 146/45
--- NOTE | 2019-10-11 03:40 | NUR ---
NURSE NOTES: Pt has left with [facility] transport team. gave report to gali SHAW. pt vital signs stable for transfer.
--- NOTE | 2019-10-11 03:45 | NUR ---
NURSE NOTES: vikash holden, called and notified that the patient is now being transferred to [facility]
[2019-10-11] MEDS ORDERED: Vancomycin 1 GM in NS 275 ML IVPB SCH (09:00)
--- NOTE | 2019-10-12 21:55 | CDS Physician Query ---
Clarification is required for compliance, coding accuracy, and to reflect severity of illness for this patient Dear Dr. Ming Wong M.D. Date: 10/11/19 CDI/CDS Name: Cheng Cheatham Exercise your independent professional judgment when responding to query. Question asked do not imply a particular answer is desired/expected Clinical Documentation States: 69-year-old male with a history of ESRD on dialysis. He previously also had a cardiac valve replaced. He was admitted recently to outside hospital. He missed dialysis this week and came to the hospital. The patient has a previous history of right lower extremity amputation as well as previous vascular bypass. IMPRESSION: ESRD, on dialysis, Pulmonary edema, Cardiac arrhythmias with A- flutter/AFib. Status post cardiopulmonary arrest, Previous right BKA. [H&P Ming Wong M.D. 10/02] Assessment; Cardiopulmonary arrest, Respiratory failure, Sepsis with shock, ESRD with Permcath, Paroxysmal AFib/flutter, Ischemic cardiomyopathy - hx CABG Cardiogenic shock [Eloy Garner MD 10/07/19] Clinical Findings Show: Vitals (10/01): T97.4, Pulse 142, RR 25 Labs (10/01): Hematology ; WBC 11.9, Neut% 79.2 Chem; Glucose 168, Creatinine 9.2, Alb 2.8, Calcium 6.9 Microbiology (10/01): CULTURE VRE SCREEN ENTEROCOCCUS FAECIUM - VRE GROWTH: 3+ Medications : Vancomycin (10/04-10/10) Was SEPSIS present on admission? [ ] Yes [ ] No [ ] Clinically undeterminable Physician signature Date Please also document in your Progress Notes and/or Discharge Summary and indicate if the condition was present on admission. DONNAD
--- NOTE | 2019-10-13 14:13 | Discharge Summary ---
Discharge Summary Discharge Summary _ DATE OF ADMISSION: 10/02/2019 DATE OF DISCHARGE: 10/11/2019 DISCHARGED BY: Dr. Wong REASON FOR ADMISSION: 69 years old male with past medical history of hypertension, congestive heart failure, history of coronary artery bypass graft , post cardiac valve replacement , COPD, asthma, diabetes mellitus, right BKA, end-stage renal disease, on hemodialysis, presented with shortness of breath. Patient reported that he missed dialysis . He usually gets dialysis three times a week: this Sunday ,Sunday ,Sunday. Patient reported increased shortness of breath due to missed dialysis. No fever or chills. Upon evaluation patient was tachycardic with heart rate of 142, respiratory rate 22 , blood pressure remained stable . Troponin 0.033. pro BNP above 5000. ECG revealed atrial flutter with rapid ventricular response. Laboratory work-up revealed mild leukocytosis with WBC 11.9, hemoglobin 11.4, hematocrit 36.4 ,platelet counts 228. Stable electrolytes. BUN 55, creatinine 9.2, consistent with known history of end-stage renal disease. Albumin 2.8. Stable LFT and lipase. Chest x-ray demonstrated large right pleural effusion with airspace consolidation which may represent compressive compressive atelectasis but superimposed pneumonia should be excluded. Pulmonary vascular congestion. Patient was placed on supplemental oxygen and admitted for further management . CONSULTANTS: train controller Dr Tung JAUREGUI specialist Dr. Donnie Chaparro freight car builder Dr. Tidwell [facility] COURSE: Patient admitted for further management. The next day on early childhood education instructor CODE BLUE was called . Patient required oral intubation. In addition, central line was placed for pressor . Pressors initiated. Patient subsequently admitted to ICU for further management. Ventilator support and pulmonary toilet provided. Patient was sedated. COVID-19 was negative. Blood culture revealed staph epidermidis on 10/07 and 10/08 , likely contaminant. Sputum culture revealed Stenotrophomonas and Klebsiella. Wound culture revealed Morganella and staph coagulase negative. another wound culture revealed Hafnia. Antibiotics provided as per ID recommendation. Dialysis provided with close monitoring of volumes and cardiorenal parameters. Venous duplex bilateral lower extremity revealed no evidence of acute DV. Patient was followed-up with the chest x-ray. Blood sugar was managed with long-acting Levemir and sliding scale of insulin as needed. Pressors titrated to keep mean arterial blood pressure above 65. All blood pressure medications were on hold. Eventually patient was able to be weaned off pressors. Echocardiogram revealed ejection fraction of 40% right ventricular systolic Patient started on heparin drip . Cardizem was on hold due to hypotension Patient had fever leukocytosis and sepsis, which was multifactorial likely due to osteomyelitis and possible pneumonia. Wound care for decubitus ulcer provided as per surgeon recommendation . Continue wound care at the accepting facility Patient started on weaning protocol. and was stable for transfer to [facility] via [facility] ambulance. FINAL DIAGNOSES: Bradycardia/asystole cardiopulmonary arrest Sepsis Septic shock Acute respiratory failure requiring intubation Infected decubitus ulcer Osteomyelitis left first metatarsal Pulmonary edema Right pleural effusion Congestive heart failure End-stage renal disease, on hemodialysis Atrial fibrillation with rapid ventricular response PVD with right BKA Coronary artery disease , status post CABG Ischemic cardiomyopathy Malnutrition Diabetes mellitus DISCHARGE MEDICATIONS: See Medication Reconciliation list. DISCHARGE INSTRUCTIONS: Patient was transferred to [facility] via [facility] ambulance. I have been assigned to dictate discharge summary for this account. I was not involved in the patient's management. Charu Juarez NP Oct 13, 2019 14:13
== END 2019-10-11 03:45 | disposition short-term general hospital (02) | DRG 870 ==
LOC: EDBD 17:46 → EMR 19:17 → 2W 19:41 → EDBEDREQ 20:02 → ICU 10-03 09:45
PROC: 0BH17EZ Insertion of Endotracheal Airway into Trachea, Via Natural or Artificial Opening (ICD-10-PCS; principal; 2019-10-03)
PROC: 5A1D70Z Performance of Urinary Filtration, Intermittent, Less than 6 Hours Per Day (ICD-10-PCS; principal; 2019-10-03)
PROC: 06HM33Z Insertion of Infusion Device into Right Femoral Vein, Percutaneous Approach (ICD-10-PCS; principal; 2019-10-03)
PROC: 5A1955Z Respiratory Ventilation, Greater than 96 Consecutive Hours (ICD-10-PCS; principal; 2019-10-03)
DX: A41.9 Sepsis, unspecified organism (principal); I46.2 Cardiac arrest due to underlying cardiac condition; N18.6 End stage renal disease; J18.9 Pneumonia, unspecified organism; I50.33 Acute on chronic diastolic (congestive) heart failure; J96.91 Respiratory failure, unspecified with hypoxia; R65.21 Severe sepsis with septic shock; R57.0 Cardiogenic shock; I13.2 Hypertensive heart and chronic kidney disease with heart failure and with stage 5 chronic kidney disease, or end stage renal disease; I48.92 Unspecified atrial flutter; E46 Unspecified protein-calorie malnutrition; M86.172 Other acute osteomyelitis, left ankle and foot; N17.9 Acute kidney failure, unspecified; I25.10 Atherosclerotic heart disease of native coronary artery without angina pectoris; I73.9 Peripheral vascular disease, unspecified; E11.22 Type 2 diabetes mellitus with diabetic chronic kidney disease; Z86.74 Personal history of sudden cardiac arrest; E66.9 Obesity, unspecified; Z68.29 Body mass index [BMI] 29.0-29.9, adult; E11.622 Type 2 diabetes mellitus with other skin ulcer; Z99.2 Dependence on renal dialysis; Z91.15 Patient's noncompliance with renal dialysis; I48.0 Paroxysmal atrial fibrillation; J44.9 Chronic obstructive pulmonary disease, unspecified; Z89.511 Acquired absence of right leg below knee; D63.1 Anemia in chronic kidney disease; L89.90 Pressure ulcer of unspecified site, unspecified stage; Z95.2 Presence of prosthetic heart valve
CPT/HCPCS: 36415; 36600; 71045; 74018; 80048; 80053; 80061; 80162; 80202; 82803; 82962; 83690; 83880; 84443; 84478; 84484; 85007; 85025; 85379; 85610; 85730; 86140; 86706; 87040; 87070; 87081; 87181; 87205; 93005; 93306; 93970; 94002; 94003; 94640; 94664; 96374; 99285; J0171; J1815; J7030; S5561; U0002